=== PATIENT | male | born 1985 | race Caucasian/White ===

== ENCOUNTER → 2017-08-31 12:45 | Outpatient (CLI) | payer MEDICAID, SELFPAY ==
--- NOTE | 2017-08-31 12:47 | CT_ITS ---
STUDY: CT RIGHT ELBOW WITHOUT CONTRAST REASON FOR EXAM: Male, 32 years old. Chronic elbow pain. History of osteoarthritis. RADIATION DOSAGE (If Supplied By Facility): CTDIvol = ( 24.58 ) mGy, DLP = ( 591.34 ) mGycm TECHNIQUE: Transaxial CT imaging of the elbow was performed. Sagittal and coronal images were reconstructed. 3-D images were reconstructed. Individualized dose optimization techniques were used for this CT. COMPARISON: Comparison is made with prior MRI of the right elbow dated December 04, 2010. FINDINGS: Marked degree of degenerative arthrosis of the ulnar trochlear articulation with subcortical cyst. There is also evidence of degenerative spurring involving the femoral head and neck with marked degenerative changes of the radial ulnar joint. There are 2 well-corticated bony fragments adjacent to the radial head measuring 7.4 mm. Soft tissue swelling. CT/Extremity Upper without Contra IMPRESSION: Marked degree of the degenerative changes of the radial ulnar joint as well as the ulnar trochlear joint with marked degree of subchondral cysts. Electronically Signed: Ramón Manzo MD at 15:15 EDT Tel [phone], Service support ,
== END ==
PROVIDERS: Family Provider Physician Assistant; PCP Physician Assistant; Visit Provider Orthopaedic Surgery
DX: M19.221 Secondary osteoarthritis, right elbow (principal)
CPT/HCPCS: 73200

== ENCOUNTER → 2018-07-21 10:08 | Outpatient (CLI) | payer MEDICAID, SELFPAY ==
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
== END ==
PROVIDERS: Family Provider Physician Assistant; PCP Physician Assistant; Referring Provider Orthopaedic Surgery; Visit Provider Orthopaedic Surgery
DX: M25.512 Pain in left shoulder (principal); M23.332 Other meniscus derangements, other medial meniscus, left knee; M23.92 Unspecified internal derangement of left knee; M25.662 Stiffness of left knee, not elsewhere classified
CPT/HCPCS: 73721

== ENCOUNTER 2018-07-24 13:20 | Emergency (ER) | payer MEDICAID, SELFPAY ==
[2018-07-24 13:21] VITALS: BP 143/75; PULSE 77; RESP 16; TEMP 36.4; O2SAT 96; BMI 28.1
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
--- NOTE | 2018-07-24 13:54 | RAD_ITS ---
STUDY: X-RAY - RIGHT SHOULDER REASON FOR EXAM: Male, 33 years old. Pain TECHNIQUE: 2 view(s) of the shoulder. COMPARISON: None. FINDINGS: There is no evidence of fracture or dislocation. There are no significant degenerative changes. There are no radiodense foreign bodies. RAD/Shoulder min 2 Views IMPRESSION: No fracture or dislocation. Electronically Signed: Rojas Walters, at 14:47 EST Tel , Service support ,
[2018-07-24] MEDS: Naproxen 500 MG Tablet PO (14:17)
--- NOTE | 2018-07-24 14:55 | ED.DEP ---
ED Disposition - Plan for ED Patient: Prescriptions: Naproxen [Naprosyn] 500 mg PO BID PRN #20 tab Referrals: Marcela Jacob PA [Primary Care Provider] -
[2018-07-24 15:09] VITALS: BP 113/74; PULSE 78; RESP 15; O2SAT 98
== END 2018-07-24 15:10 | disposition home or self-care (01) ==
LOC: ED 14:52
PROVIDERS: Emergency Provider Emergency Medicine; Family Provider Physician Assistant; PCP Physician Assistant
DX: S49.91XA Unspecified injury of right shoulder and upper arm, initial encounter (principal); X58.XXXA Exposure to other specified factors, initial encounter; Y93.89 Activity, other specified; Y92.9 Unspecified place or not applicable; Y99.9 Unspecified external cause status; M19.021 Primary osteoarthritis, right elbow; G40.909 Epilepsy, unspecified, not intractable, without status epilepticus
CPT/HCPCS: 73030; 99283

== ENCOUNTER 2018-09-22 10:43 | Emergency (ER) | payer MEDICAID, SELFPAY ==
[2018-09-22 10:44] VITALS: BP 124/81; BP 130/81; PULSE 76; PULSE 83; RESP 13; RESP 14; TEMP 36.7; O2SAT 97; O2SAT 98; BMI 28.5
[2018-09-22 10:54] VITALS: O2SAT 97
--- NOTE | 2018-09-22 11:32 | CT_ITS ---
STUDY: CT BRAIN WITHOUT CONTRAST REASON FOR EXAM: Male, 33 years old. History of intracranial bleed/hemophilia. RADIATION DOSAGE (If Supplied By Facility): CTDIvol = ( 44.99 ) mGy, DLP = ( 812.98 ) mGycm TECHNIQUE: Transaxial CT imaging of the brain was performed without administration of intravenous contrast material. Individualized dose optimization techniques were used for this CT. COMPARISON: Comparison is made with prior study dated May 17, 2017. FINDINGS: Normal soft tissue structures. Once again, the patient is status post right frontal and right posterior parietal occipital craniotomy. Normal size ventricles and extra-axial spaces for the patient's age. Stable encephalomalacia in the right frontal lobe as well as in the right posterior parietal occipital lobes and left temporal parietal lobes. No acute hemorrhage or mass effect is seen at this time. Normal basal ganglia and thalami. Normal brainstem. Normal cerebellum. There is no intracranial hemorrhage. There are no findings of an acute ischemic infarction. There is a 1.7 cm x 1.6 cm polyp or retention cyst in the right maxillary sinus. CT/Brain/Head without Contrast IMPRESSION: Stable examination. Electronically Signed: Ramón Manzo, at 12:45 EDT , Service support ,
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
[2018-09-22 12:07] VITALS: BP 133/81; PULSE 83; RESP 17
[2018-09-22 12:18] LABS: Absolute Lymphocyte Count 1.02 X10^3/ul (0.83-4.51); Absolute Neutrophil Count 9.4 X10^3/uL (2.0-7.7); Basophil# 0.01 X10^3/uL; Basophil% 0.1 % (0-1); Eosinophil# 0.02 X10^3/uL; Eosinophils% 0.2 % (0-5); Hematocrit 48.4 % (40-54); Hemoglobin 16.7 g/dl (13.0-16.5); Lymphocyte # 1.02 X10^3/ul (4.0); Lymphocyte % 9.2 % (19-41); Mean Corp Hgb Conc 34.5 g/gl (32-36); Mean Corpuscular Hgb 27.9 pg (27.0-32.0); Mean Corpuscular Volume 80.9 fL (80-94); Mean Platelet Vol. 9.7 fl (6.2-12.0); Monocyte% 5.4 % (0-10); Neutrophil # 9.39 X10^3/uL (2.7-7.7); Neutrophil % 84.8 % (47-70); Platelet Count 191 K/mm3 (150-450); RBC Distribution Width CV 13.6 % (11.6-14.6); RBC Distribution Width SD 39.8 fl (35.1-43.9); Red Blood Count 5.98 M/mm3 (4.6-6.2); White Blood Count 11.1 K/mm3 (4.4-11.0)
[2018-09-22 12:19] LABS: POSITIVE COUNT NO; POSITIVE DIFFERENTIAL NO; POSITIVE MORPHOLOGY NO
[2018-09-22 12:35] LABS: Anion Gap 5 (5-15); BUN 24 mg/dL (7-18); BUN/Creat Ratio 18.8 RATIO (10-20); Calcium,Total 9.2 mg/dL (8.5-10.1); Chloride 98 mmol/L (98-107); Creatinine, Serum 1.28 mg/dL (0.70-1.30); EST Glomerular Filtration Rate 69 mL/min (>60); Est Glom Filt Rate - Afr Amer 84 mL/min (>60); Estimated Creatinine Clearance 110.82 ml/min; Glucose 97 mg/dL (74-106); Potassium 3.5 mmol/L (3.5-5.1); Sodium Level 134 mmol/L (136-145)
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
[2018-09-22 13:48] VITALS: BP 110/76; PULSE 85; RESP 20; O2SAT 99
== END 2018-09-22 13:49 | disposition home or self-care (01) ==
PROVIDERS: Emergency Provider Emergency Medicine; Family Provider Physician Assistant; PCP Physician Assistant
DX: R41.0 Disorientation, unspecified (principal); R56.9 Unspecified convulsions; D66 Hereditary factor VIII deficiency; V89.2XXA Person injured in unspecified motor-vehicle accident, traffic, initial encounter; Y93.9 Activity, unspecified; Y92.007 Garden or yard of unspecified non-institutional (private) residence as the place of occurrence of the external cause; Y99.8 Other external cause status
CPT/HCPCS: 70450; 80048; 85025; 99285; A4216

== ENCOUNTER → 2019-02-28 09:20 | Outpatient (CLI) | payer MEDICAID, SELFPAY ==
[2019-02-28 09:14] VITALS: BMI 28.5
--- NOTE | 2019-02-28 09:22 | RAD_ITS ---
STUDY: X-RAY - LEFT KNEE REASON FOR EXAM: Pain. TECHNIQUE: 4 view(s) of the knee. COMPARISON: None. FINDINGS: Normal visualized distal femur. Normal visualized proximal tibia and fibula. Normal proximal tibiofibular articulation. Normal medial femorotibial compartment. Normal lateral femorotibial compartment. Normal patellofemoral articulation. The soft tissue structures are unremarkable. RAD/Knee 4 or More Views IMPRESSION: Normal x-ray examination of the left knee. Electronically Signed: Kashif Rollins MD at 9:42 EDT Tel , Service support ,
--- NOTE | 2019-02-28 09:54 | RAD_ITS ---
STUDY: X-RAY - PELVIS AND LEFT HIP REASON FOR EXAM: Pain. TECHNIQUE: 2 views of the pelvis and hip. COMPARISON: None. FINDINGS: Normal visualized soft tissue structures. Normal bilateral iliac wings, sacroiliac joints and visualized sacrum. Normal bilateral superior and inferior pubic rami. Normal pubic symphysis. Normal bilateral ischial tuberosities. There is uncovering of the left femoral head consistent with developmental hip dysplasia. There are marginal osteophytes of the left femoral head with mild superior lateral joint space narrowing of the left hip. 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 Electronically Signed: Kashif Rollins MD at 10:19 EDT Tel , Service support ,
== END ==
PROVIDERS: Family Provider Physician Assistant; PCP Physician Assistant; Referring Provider Orthopaedic Surgery; Visit Provider Orthopaedic Surgery
DX: M25.562 Pain in left knee (principal); M79.605 Pain in left leg
CPT/HCPCS: 73502; 73564

== ENCOUNTER 2019-03-10 09:39 | Outpatient (RCR) | payer MEDICAID, SELFPAY ==
[2019-02-28 09:14] VITALS: BMI 28.5
== END 2019-03-10 19:00 | disposition home or self-care (01) ==
LOC: PT 09:39
PROVIDERS: Family Provider Physician Assistant; PCP Physician Assistant; Referring Provider Orthopaedic Surgery; Visit Provider Orthopaedic Surgery
DX: M25.562 Pain in left knee (principal); Q65.89 Other specified congenital deformities of hip

== ENCOUNTER → 2019-12-20 09:25 | Outpatient (CLI) | payer MEDICAID, SELFPAY ==
[2019-12-15 14:22] VITALS: BMI 28.5
--- NOTE | 2019-12-20 09:26 | RAD_ITS ---
STUDY: X-RAY - LUMBAR SPINE REASON FOR EXAM: Male, 34 years old. LEFT HIP PAIN, DIFFICULTY WALKING TECHNIQUE: 5 view(s) of the lumbar spine were obtained. COMPARISON: None FINDINGS: Normal lumbar lordosis. There is no substantial scoliosis. There is a normal alignment of the vertebrae. There is mild endplate spondylosis of L3. Normal disc space heights. The soft tissue structures are unremarkable. RAD/L/S Spine Min 4 Views IMPRESSION: Mild endplate spondylosis of L3. The study is otherwise unremarkable. Electronically Signed: Rex Murphy MD at 17:08 EDT , Service support ,
== END ==
PROVIDERS: PCP Physician Assistant; Referring Provider Orthopaedic Surgery; Visit Provider Orthopaedic Surgery
DX: M16.12 Unilateral primary osteoarthritis, left hip (principal); G57.02 Lesion of sciatic nerve, left lower limb; M25.562 Pain in left knee; G89.29 Other chronic pain
CPT/HCPCS: 72110

== ENCOUNTER → 2020-01-05 17:38 | Outpatient (CLI) | payer MEDICAID, SELFPAY ==
[2019-12-20 10:23] VITALS: BMI 28.5
--- NOTE | 2020-01-05 17:39 | MRI_ITS ---
STUDY: MRI LEFT HIP REASON FOR EXAM: Male, 34 years old. LT HIP PAIN, prior left hip surgery as a teen for infection, NKI, r.o AVN TECHNIQUE: Standardized fat and water weighted pulse sequences were obtained in all 3 orthogonal planes. COMPARISON: X-ray 02/28/2019. FINDINGS: Small osteochondral defects of the superior and superomedial femoral head, with mild reactive marrow edema of the acetabulum. Mild anterior spurring of the femoral head. There is mild reactive marrow edema in the anterior femoral head and neck. Cystic changes in the anterior acetabulum. Question of anterior labral tear is raised. Trace hip joint effusion. Soft tissue edema of the anterior capsule. Iliofemoral ligament is intact. Normal gluteus minimus, medius and iliopsoas tendons and distal insertions. Origins of the hamstring tendons are intact. There is no trochanteric, iliopsoas or iliopectineal bursitis. Normal visualized soft tissue structures of the pelvis. MRI/Lower Ext Joint Only (Routine) IMPRESSION: 1. Mild degenerative changes of the left hip. 2. Question anterior labral tear. 3. Trace joint effusion. 4. Reactive marrow edema of the anterior femoral head. Electronically Signed: Deedee Patrick MD at 19:57 EDT Tel , Service support ,
== END ==
PROVIDERS: PCP Physician Assistant; Referring Provider Orthopaedic Surgery; Visit Provider Orthopaedic Surgery
DX: M43.16 Spondylolisthesis, lumbar region (principal); Q65.89 Other specified congenital deformities of hip
CPT/HCPCS: 73721

== ENCOUNTER → 2020-07-10 14:33 | Outpatient (CLI) | payer MEDICAID, SELFPAY ==
[2020-01-10 07:55] VITALS: BMI 28.5
--- NOTE | 2020-07-10 14:37 | RAD_ITS ---
STUDY: X-RAY - RIGHT FOOT CLINICAL: Male, 35 years old. pt states bilateral foot and ankle pain for whole life, previous hx of arthroscopy to both ankles at 12 years old, pt was poor historian TECHNIQUE: 3 view(s) of the foot. COMPARISON: None. FINDINGS: Normal talus, calcaneus, and tarsal bones. Normal visualized subtalar, talonavicular, calcaneocuboid, tarsal and tarsometatarsal articulations. Normal metatarsi. Normal metatarsophalangeal joint of the great toe. Normal tibial and fibular sesamoid bones. Normal interphalangeal joint of the great toe. Normal phalanges of the great toe. Normal second through fifth metatarsophalangeal joints. Normal interphalangeal joints and phalanges of the lesser toes. The soft tissue structures are unremarkable. Significant ankle degenerative changes RAD/Foot min 3 Views IMPRESSION: Normal x-ray examination of the foot. Electronically Signed: Chip Naik DO at 4:41 EST Tel , Service support ,
--- NOTE | 2020-07-10 14:37 | RAD_ITS ---
STUDY: X-RAY - RIGHT ANKLE REASON FOR EXAM: Male, 35 years old. Pt states bilateral foot and ankle pain for whole life, previous hx of arthroscopy to both ankles at 12 years old, pt was poor historian TECHNIQUE: 4 view(s) of the ankle. COMPARISON: None. FINDINGS: Normal visualized distal tibia and fibula. Normal medial and lateral malleoli. Degenerative changes of the distal tibial talar joint. There is sclerosis and deformity with compression of the talus suggestive of possible avascular necrosis. The visualized subtalar, talonavicular, calcaneocuboid and tarsal articulations are normal. The soft tissue structures are unremarkable. 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 Electronically Signed: Ramón Manzo MD at 15:33 EST , Service support ,
--- NOTE | 2020-07-10 14:37 | RAD_ITS ---
STUDY: X-RAY - LEFT ANKLE REASON FOR EXAM: Male, 35 years old. Pt states bilateral foot and ankle pain for whole life, previous hx of arthroscopy to both ankles at 12 years old, pt was poor historian TECHNIQUE: 3 view(s) of the ankle. COMPARISON: None. FINDINGS: Normal visualized distal tibia and fibula. Old avulsion fracture of the medial malleolus. Degenerative changes of the distal tibial talar joint. There is flattening of the talus suggestive of possible avascular necrosis. The visualized subtalar, talonavicular, calcaneocuboid and tarsal articulations are normal. The soft tissue structures are unremarkable. RAD/Ankle min 3 Views IMPRESSION: Old avulsion fracture of the medial malleolus with findings suggestive of a deformity of the talus and possible avascular necrosis. Electronically Signed: Ramón Manzo MD at 15:32 EST , Service support ,
--- NOTE | 2020-07-10 14:40 | RAD_ITS ---
STUDY: X-RAY - LEFT FOOT CLINICAL: Male, 35 years old. pt states bilateral foot and ankle pain for whole life, previous hx of arthroscopy to both ankles at 12 years old, pt was poor historian TECHNIQUE: 3 view(s) of the foot. COMPARISON: None. FINDINGS: Normal talus, calcaneus, and tarsal bones. Normal visualized subtalar, talonavicular, calcaneocuboid, tarsal and tarsometatarsal articulations. Normal metatarsi. Normal metatarsophalangeal joint of the great toe. Normal tibial and fibular sesamoid bones. Normal interphalangeal joint of the great toe. Normal phalanges of the great toe. Normal second through fifth metatarsophalangeal joints. Normal interphalangeal joints and phalanges of the lesser toes. The soft tissue structures are unremarkable. RAD/Foot min 3 Views IMPRESSION: Normal x-ray examination of the foot. Electronically Signed: Chip Naik DO at 4:41 EST Tel , Service support ,
== END ==
PROVIDERS: PCP Physician Assistant; Referring Provider Anesthesiology Pain Medicine; Visit Provider Anesthesiology Pain Medicine
DX: M25.571 Pain in right ankle and joints of right foot (principal); M25.572 Pain in left ankle and joints of left foot
CPT/HCPCS: 73610; 73630

== ENCOUNTER → 2020-12-03 | Outpatient (CLI) | payer MEDICAID, SELFPAY ==
[2020-01-10 07:55] VITALS: BMI 28.5
[2020-12-03 16:56] LABS: Amphetamine Urine VISTA NEGATIVE (<1000 ng/mL); Barbiturate Urine VISTA NEGATIVE (< 200 ng/mL); Benzodiazepine Urine VISTA NEGATIVE (< 200 ng/mL); Cocaine Urine VISTA NEGATIVE (< 300 ng/mL); Ecstacy Urine VISTA NEGATIVE (< 500 ng/mL); Methadone Urine VISTA NEGATIVE (< 300 ng/mL); PCP Urine VISTA NEGATIVE (< 25 ng/mL); THC Urine VISTA NEGATIVE (< 50 ng/mL); Vista UDS pH Range 6
[2020-12-04 07:48] LABS: BUP Internal Control LINE = VALID (VALID)
[2020-12-04 07:49] LABS: Buprenorphine Drug Screen Positive (<10 ng/mL)
== END | disposition home or self-care (01) ==
LOC: LABSPEC 15:10
PROVIDERS: PCP Physician Assistant; Visit Provider Anesthesiology Pain Medicine
DX: F11.20 Opioid dependence, uncomplicated (principal)
CPT/HCPCS: 80307

== ENCOUNTER → 2020-12-31 15:38 | Outpatient (CLI) | payer MEDICAID, SELFPAY ==
[2020-01-10 07:55] VITALS: BMI 28.5
[2020-12-31 16:45] LABS: Amphetamine Urine VISTA NEGATIVE (<1000 ng/mL); Barbiturate Urine VISTA NEGATIVE (< 200 ng/mL); Benzodiazepine Urine VISTA NEGATIVE (< 200 ng/mL); Cocaine Urine VISTA NEGATIVE (< 300 ng/mL); Ecstacy Urine VISTA NEGATIVE (< 500 ng/mL); Methadone Urine VISTA NEGATIVE (< 300 ng/mL); PCP Urine VISTA NEGATIVE (< 25 ng/mL); THC Urine VISTA NEGATIVE (< 50 ng/mL); Vista UDS pH Range 5
== END ==
PROVIDERS: PCP Physician Assistant; Referring Provider Anesthesiology Pain Medicine; Visit Provider Anesthesiology Pain Medicine
DX: F11.20 Opioid dependence, uncomplicated (principal)
CPT/HCPCS: 80307

== ENCOUNTER 2022-06-27 02:23 | Emergency (ER) | payer MEDICAID, SELFPAY ==
[2022-06-27 02:24] VITALS: BP 149/95; PULSE 74; RESP 18; TEMP 36; O2SAT 99; BMI 27.4
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
[2022-06-27 02:53] LABS: Absolute Lymphocyte Count 3.94 X10^3/uL (0.83-4.51); Absolute Neutrophil Count 7.7 X10^3/uL (2.0-7.7); Basophil# 0.05 X10^3/uL; Basophil% 0.4 % (0-1); Eosinophil# 0.14 X10^3/uL; Eosinophils% 1.1 % (0-5); Hematocrit 35.6 % (40-54); Hemoglobin 11.1 g/dL (13.0-16.5); Lymphocyte # 3.94 X10^3/ul (0.83-4.51); Lymphocyte % 31.1 % (19-41); Mean Corp Hgb Conc 31.2 g/dL (32-36); Mean Corpuscular Hgb 28.1 pg (27.0-32.0); Mean Corpuscular Volume 90.1 fL (80-94); Mean Platelet Vol. 9.2 fl (6.2-12.0); Monocyte% 6.3 % (0-10); NRBC Flagged by Analyzer 0 % (0-5); Neutrophil # 7.69 X10^3/uL (2.7-7.7); Neutrophil % 60.7 % (47-70); Platelet Count 401 K/mm3 (150-450); RBC Distribution Width SD 45.8 fl (35.1-43.9); Red Blood Count 3.95 M/mm3 (4.6-6.2); White Blood Count 12.7 K/mm3 (4.4-11.0)
[2022-06-27 03:06] LABS: Bedside Glucose 136 mg/dL (74-106)
[2022-06-27 03:07] LABS: Anion Gap 10 (5-15); BUN 32 mg/dL (7-18); BUN/Creat Ratio 26.9 RATIO (10-20); Calcium,Total 8.8 mg/dL (8.5-10.1); Chloride 107 mmol/L (98-107); Creatinine, Serum 1.19 mg/dL (0.70-1.30); EST Glomerular Filtration Rate 74 mL/min (>60); Est Glom Filt Rate - Afr Amer 89 mL/min (>60); Estimated Creatinine Clearance 114.83 ml/min; Glucose 176 mg/dL (74-106); Potassium 4.7 mmol/L (3.5-5.1); Sodium Level 140 mmol/L (136-145)
[2022-06-27] MEDS: levETIRAcetam IV 1,000 MG/100 ML BAG 400 MG IV ×2 (03:27→07:47)
[2022-06-27 03:35] VITALS: BP 65/52; PULSE 81; RESP 16; O2SAT 96
[2022-06-27] MEDS: 0.9% Normal Saline 1,000 ML 999 ML IV ×3 (03:39→08:50)
[2022-06-27] MEDS: Lidocaine 2% /Epi 1:100 (20ml) 20 ML VIAL INFILT (04:31)
--- NOTE | 2022-06-27 05:53 | EDS_ITS ---
HPI History of Present Illness Chief Complaint: Laceration Narrative Narrative: Patient is a 37-year-old male with past medical history of hemophilia and seizure disorder. He had been on Keppra twice a day and then stopped his medication. Secondary to this he had a breakthrough seizures where he fell and struck his head sustaining a laceration. Reportedly the wound was closed at an outside hospital where he went to after his initial injury from the repetitive seizure roughly 1 week ago. Patient states that this evening he was sleeping and then awoke feeling like he had to use the bathroom and noticed that his head was wet. He states when he touched the area there was a large amount of blood and secondary to his EMS was called and he was brought in for evaluation. The patient states that there has been no repeat trauma since his initial injury and states he has been taking his medications as directed [facility] Medical History Hemophilia hx of stroke Seizure Home Medications antihemophil FVIII,full length 1,000 (+/-) unit IV solution 12,000 unit IV QODAY 07/07/16 [History Last Taken Unknown] levetiracetam 750 mg tablet 750 mg PO BID 09/22/18 [History Last Taken Unknown] citalopram 20 mg tablet PO #30 tabs 02/28/19 [History Last Taken Unknown] Allergy/AdvReac Type Severity Reaction Status Date / Time aspirin Allergy Other Verified 06/27/22 02:24 Iodinated Contrast Media Allergy Other Verified 06/27/22 02:24 [DYEE] NSAIDS (Non-Steroidal Allergy Other Verified 06/27/22 02:24 Anti-Inflamma Surgical History (Updated 08/25/21 @ 10:37 by Kamla Marquez) History of ankle surgery History of arthroscopy of left knee Hx of brain surgery Hx of heart surgery Social History (Updated 08/25/21 @ 10:38 by Kamla Marquez) Smoking Status: Never smoker alcohol intake: never ROS ROS ED Constitutional Constitutional ED: Denies chills or fever(s) Eyes Eyes: Denies change in vision ENT ENT ED: Denies sore throat Cardiovascular Cardiovascular: Denies chest pain Respiratory/Chest Respiratory/Chest: Denies cough or dyspnea Gastrointestinal Gastrointestinal: Denies abdominal pain, diarrhea, nausea or vomiting Genitourinary Genitourinary ED: Denies dysuria Musculoskeletal Musculoskeletal: Denies myalgias Integumentary Reports other Details: Positive scalp laceration Neurologic Neurologic: Denies headache(s) Hematologic/Lymphatic Hematologic/Lymphatic: Reports easy bleeding and easy bruising EXAM Physical Exam Const Vital Signs: 06/27/22 02:24 06/27/22 03:35 06/27/22 06:17 Temperature 96.8 F L Temperature Source Temporal Pulse Rate 74 81 75 Respiratory Rate 18 16 17 Blood Pressure 149/95 H 65/52 L 110/72 Blood Pressure Mean 113 56 84 Pulse Ox 99 96 99 Oxygen Delivery Method Room Air Room Air Room Air 06/27/22 07:00 Temperature Temperature Source Pulse Rate 90 Respiratory Rate 17 Blood Pressure 103/55 L Blood Pressure Mean 71 Pulse Ox 99 Oxygen Delivery Method Room Air Positive well nourished and well developed General Appearance ED: well developed HEENT Reports moist mucous membranes HEENT Narrative: Patient has a circular 1 x 1.5 cm laceration across the left upper occipital portion of his scalp. Patient has active bleeding from this but it is dark red nonpulsatile indicating it is a brisk venous bleed. Otherwise there are no signs of depressed or basilar skull fracture. Eyes PERRL and EOMs intact bilaterally General Eye ED: Negative for pale conjunctiva Neck supple Resp normal respiratory effort and clear to auscultation bilaterally Cardio regular rate and regular rhythm GI normal to inspection, nondistended, normoactive bowel sounds, non-tender, non- distended and no masses Auscultation: normoactive bowel sounds Palpation: soft Extremity normal to inspection Neuro oriented x3 and CN's II-XII intact bilaterally Sensorium / Orientation: alert Psych mental status grossly normal Skin Skin Narrative: Laceration to the scalp as documented above MDM MDM MDM Narrative Medical decision making narrative: Patient presented to the ER awake and alert with no report or signs of repeat trauma from his initial reported injury roughly 1 week ago. While patient was being triaged and his wound evaluated he did have 30 second to 1-minute seizure with postictal phase. Secondary to this basic blood work was obtained. As he had no report or signs of new trauma I did not feel there is need for repeat andres ging studies. Blood work showed leukocytosis at 12.7 which is most likely stress response and otherwise no clinically significant finding. The patient went on to have 2 other seizures following the first for a total of 3 in the ER all lasting approximately 30 seconds and patient did have return to baseline mental status in between each seizure and therefore he is not in status epilepticus. Secondary to these recurrent seizures he was given 1 g of Keppra. Patient was also hydrated with a total of 3 L of fluid. The wound was closed as documented below. Following this as blood work revealed no clinically significant findings and his wounds been closed and not feel there is need for admission so we attempted to ambulate the patient. Upon doing so patient had another 30 second seizure with return to baseline mental status. Therefore at this time patient will be observed further and we will discuss the case with neurology to see if there is any need for further intervention or possible transfer at this time The case was discussed with the patient epilepsy team at [facility]. They feel patient should receive a second gram of IV Keppra and then have his home dose increased to 1500 mg twice a day. They recommend patient be watched for roughly another 3 hours and if there is no further seizure activity after this treatment then he is otherwise safe for discharge from their standpoint and can follow-up on an outpatient basis. This plan of care was discussed with the patient and mother and both are agreeable to it Patient had his scalp wound cleaned with chlorhexidine. It was anesthetized using 6 mL of 2% lidocaine with epinephrine local fashion. A total of fifteen 5-0 Vicryl sutures were then placed in simple interrupted fashion around the circular scalp wound. This brought the wound together good approximation and control bleeding. Patient tolerated procedure well without complication Lab Data Attestation: I reviewed the patient's lab results. Labs: Laboratory Results - last 24 hr 06/27/22 06/27/22 06/27/22 02:40 02:40 02:46 WBC 12.7 H RBC 3.95 L Hgb 11.1 L Hct 35.6 L MCV 90.1 MCH 28.1 MCHC 31.2 L RDW Std Deviation 45.8 H RDW Coeff of Abraham 14.0 Plt Count 401 MPV 9.2 Immature Gran % (Auto) 0.400 Neut % (Auto) 60.7 Lymph % (Auto) 31.1 [place] % (Auto) 6.3 Eos % (Auto) 1.1 Baso % (Auto) 0.4 Absolute Neuts (auto) 7.7 Absolute Lymphs (auto) 3.94 Nucleated RBC % 0 Sodium 140 Potassium 4.7 Chloride 107 Carbon Dioxide 23.0 Anion Gap 10 BUN 32 H Creatinine 1.19 Estim Creat Clear Calc 114.83 Est GFR (MDRD) Af Amer 89 Est GFR (MDRD) Non-Af 74 BUN/Creatinine Ratio 26.9 H Glucose 176 H Calcium 8.8 Magnesium 2.0 POC Glucose 136 H Discharge Plan Triage Chief Complaint: Laceration ED Provider: Anish Villeda Dx/Rx/DC Orders Clinical Impression: Laceration of scalp, Recurrent seizures, Hemophilia Instructions: ED Seizure, Recurrent (Adult) Prescriptions: No Action citalopram 20 mg tablet PO Qty: 30 antihemophil FVIII,full length 1,000 UNIT recon soln 12,000 unit IV QODAY Rx Instructions: 2x/week levetiracetam 750 MG tablet 750 mg PO BID Primary Care Provider: Marcela Jacob Referrals: Marcela Jacob, PA [Primary Care Provider] - Activity Restrictions/Additional Instructions: Please increase your Keppra to 1500 mg(2 pills) by mouth twice a day for improved seizure control. The sutures placed in your scalp today are dissolvable and therefore do not need to be removed. They should dissolve in approximately 1 to 2 weeks. If you have any further concerns please return to the ER for repeat evaluation Disposition Disposition: Home, Self Care
[2022-06-27 06:17] VITALS: BP 110/72; PULSE 75; RESP 17; O2SAT 99
--- NOTE | 2022-06-27 06:47 | NURSING ---
CALLED [facility] ABOUT PATIENT. TALKED TO RONNIE
[2022-06-27 07:00] VITALS: BP 103/55; PULSE 90; RESP 17; O2SAT 99
--- NOTE | 2022-06-27 07:11 | NURSING ---
[facility] DR FOR DR ARELLANO
[2022-06-27 09:00] VITALS: PULSE 87; RESP 17; O2SAT 100
[2022-06-30 18:24] LABS: KEPPRA (LEVETIRACETAM) 13.2 ug/mL (10.0-40.0)
== END 2022-06-27 11:58 | disposition home or self-care (01) ==
PROVIDERS: Emergency Provider Emergency Medicine; PCP Physician Assistant; Visit Provider Emergency Medicine
DX: S01.01XA Laceration without foreign body of scalp, initial encounter (principal); D66 Hereditary factor VIII deficiency; G40.909 Epilepsy, unspecified, not intractable, without status epilepticus; W19.XXXA Unspecified fall, initial encounter; Z86.73 Personal history of transient ischemic attack (TIA), and cerebral infarction without residual deficits
CPT/HCPCS: 12001; 80048; 80177; 82962; 83735; 85025; 96361; 96365; 96366; 99284; J7030; A4216

== ENCOUNTER 2024-08-22 13:06 | Emergency (ER) | payer MEDICAID, SELFPAY ==
[2024-08-22 13:07] VITALS: BP 134/83; PULSE 66; RESP 19; TEMP 35.8; O2SAT 98; BMI 26.7
--- NOTE | 2024-08-22 13:31 | CT_ITS ---
PROCEDURE: BRAIN/HEAD WITHOUT CONTRAST 08/22/2024 REASON FOR EXAM: TRAUMA, HEMOPHILIAC Abrasions to the right side of the face. TECHNIQUE: Head CT without intravenous contrast. Coronal and Sagittal reconstruction series were provided. One or more dose reduction techniques were used (e.g., Automated exposure control, adjustment of the mA and/or kV according to patient size, use of iterative reconstruction technique. RADIATION DOSE SUMMARY: CTDlvol: 44.99 mGy DLP: 829.85 mGycm COMPARISON: Comparison is made with prior study dated September 22, 2018. FINDINGS: Brain: Stable focal area of encephalomalacia is in the right frontal lobe as well as in the left posterior temporal parietal lobe and right occipital lobe. CSF Spaces: Mild generalized cerebral atrophy Sinuses/Mastoids: Soft tissue swelling overlying the right orbital region. Bones: Status post right frontal and right posterior parietal occipital craniotomies. CT/Brain/Head without Contrast IMPRESSION: No evidence of acute intracranial abnormality. Stable examination. Soft tissue swelling overlying the right orbital region. Reading Location: [id number]
[2024-08-22] MEDS: Lidocaine 1% /Epi 1:100 (20ml) 20 ML Vial INFILT (13:49)
[2024-08-22 13:50] LABS: Absolute Lymphocyte Count 0.96 X10^3/uL (0.83-4.51); Absolute Neutrophil Count 12.9 X10^3/uL (2.0-7.7); Basophil# 0.02 X10^3/uL; Basophil% 0.1 % (0-1); Eosinophil# 0.02 X10^3/uL; Eosinophils% 0.1 % (0-5); Hematocrit 53.2 % (40-54); Lymphocyte # 0.96 X10^3/ul (0.83-4.51); Lymphocyte % 6.6 % (19-41); Mean Corpuscular Hgb 28.8 pg (27.0-32.0); Mean Corpuscular Volume 84.7 fL (80-94); Monocyte# 0.51 X10^3/uL; Monocyte% 3.5 % (0-10); NRBC Flagged by Analyzer 0 % (0-5); Neutrophil % 89.4 % (47-70); Platelet Count 195 K/mm3 (150-450); RBC Distribution Width CV 13.2 % (11.6-14.6); RBC Distribution Width SD 40.5 fl (35.1-43.9); Red Blood Count 6.28 M/mm3 (4.6-6.2); White Blood Count 14.5 K/mm3 (4.4-11.0)
[2024-08-22] MEDS: Lidocaine/Epi/Tetracaine 50 ML 1 APPLIC TOPICAL (13:50)
[2024-08-22] MEDS: Ondansetron 4 MG/2 ML Vial IV (13:50)
[2024-08-22 14:06] LABS: Hemoglobin 18.1 g/dL (13.0-16.5)
[2024-08-22 14:07] VITALS: BP 145/99; RESP 16
[2024-08-22 14:18] LABS: Anion Gap 10 (5-15); BUN 18 mg/dL (4-19); BUN/Creat Ratio 17.8 RATIO (10-20); Calcium,Total 9.2 mg/dL (7.6-11.0); Carbon Dioxide 26.8 mmol/L (21.0-32.0); Chloride 103 mmol/L (98-108); Creatinine, Serum 1.03 mg/dL (0.70-1.20); EST Glomerular Filtration Rate 96 (>60); Estimated Creatinine Clearance 130.14 ml/min (50-250); Glucose 113 mg/dL (70-99); Potassium 4.7 mmol/L (3.3-5.1); Sodium Level 140 mmol/L (133-145)
--- NOTE | 2024-08-22 14:22 | ED.RN ---
Patient self administered home factor VIII medication via IV per Dr. Aquino's approval.
--- NOTE | 2024-08-22 14:36 | ED.VIS.FALL ---
HPI HPI - Fall History of Present Illness Chief Complaint: Fall Informant: patient and family Narrative Narrative: 39-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 He lives with his sister, who was at work today when patient had an event that he does not remember. Sister came home to find him with injuries to his face. He does not have a headache. He does not have any trouble with his vision. He has soreness in his lips and the face near his right eye. He is bleeding from both of these areas. He denies any other pain or injury. He takes Keppra for seizures, unknown what dose right now but he takes Factor VIII 6000 units twice weekly and when he hits his head, they have it at home and have not used it yet today. No recent illness. Patient remembers going to the bathroom and then was going to go lay down and does not remember when and where what happened. He took his Keppra this morning before all of this, has not missed any doses that he recalls recently, denies any recent medication changes or additions/deletions, has not seen his neurologist for a year or so. Does not have seizures very often maybe once a year or so. [facility] Medical History Seizure Hemophilia hx of stroke Home Medications ?Medication ?Instructions ?Recorded ?Last Taken ?Type antihemophil FVIII,full length 12,000 unit IV QODAY 07/07/16 Unknown History 1,000 (+/-) unit IV solution citalopram 20 mg tablet PO #30 tabs 02/28/19 Unknown History levetiracetam 1,000 mg tablet 1,000 mg PO BID #60 tabs 08/22/24 Unknown Rx (Keppra) Allergy/AdvReac Type Severity Reaction Status Date / Time aspirin Allergy Other Verified 08/22/24 13:11 Iodinated Contrast Media Allergy Other Verified 08/22/24 13:11 (DYEE) NSAIDS (Non-Steroidal Allergy Other Verified 08/22/24 13:11 Anti-Inflamma Surgical History Hx of brain surgery History of ankle surgery History of arthroscopy of left knee Hx of heart surgery Social History Smoking Status: Never smoker alcohol intake: never ROS ROS ED Constitutional Constitutional ED: Denies chills or fever(s) Eyes Eyes: Denies change in vision or diplopia ENT ENT ED: Denies rhinorrhea or sore throat Cardiovascular Cardiovascular: Denies chest pain or palpitations Respiratory/Chest Respiratory/Chest: Denies cough or dyspnea Gastrointestinal Gastrointestinal: Denies abdominal pain, diarrhea, nausea or vomiting Genitourinary Genitourinary ED: Denies dysuria or hematuria Musculoskeletal Musculoskeletal: Denies back pain or neck pain Integumentary Reports laceration; Denies abscess or rash Neurologic Neurologic: Reports other Details: Amnestic to earlier events no other memory issues or confusion ; Denies headache(s), paresthesias or weakness Psychiatric Psychiatric: Denies anxiety or suicidal thoughts EXAM Physical Exam Const Vital Signs: 08/22/24 13:07 08/22/24 13:20 08/22/24 14:07 Temperature 96.4 F L Temperature Source Temporal Pulse Rate 66 Respiratory Rate 19 H 16 Respiratory Effort Normal Respiratory Depth Normal Respiratory Pattern Normal Blood Pressure 134/83 H 145/99 H Blood Pressure Mean 100 114 Pulse Ox 98 Oxygen Delivery Method Room Air Room Air 08/22/24 15:00 08/22/24 16:00 Temperature Temperature Source Pulse Rate Respiratory Rate Respiratory Effort Respiratory Depth Respiratory Pattern Blood Pressure 125/72 H 136/73 H Blood Pressure Mean 89 94 Pulse Ox Oxygen Delivery Method Positive well nourished and well developed General Appearance ED: well developed and NAD HEENT Reports moist mucous membranes HEENT Narrative: Right lateral periorbital ecchymosis, but not around the eye. No raccoon eyes. There is an associated laceration here, 1.5 cm, it is on the lateral aspect of the right upper eyelid but does not involve the margin and is not through and through, I everted the eyelid to check. There is no sign of globe trauma. There is no bony facial tenderness. There is also contusion to the right upper lip and contusion to the right lower lip with a laceration on the vermilion not including the border that is irregular with a flap and 2 cm, full-thickness not through and through no dentition injury. There is a second 1 cm L-shaped laceration only on the vermilion just lateral to this, and a third laceration full-thickness linear 1.5 cm that is along the vermilion border just caudal to both of these other 2. Can open jaw, no malocclusion. No hemotympanum. No Guillaume sign. normocephalic Eyes PERRL and EOMs intact bilaterally Neck full ROM and supple Resp normal respiratory effort and clear to auscultation bilaterally Cardio regular rate, regular rhythm and no murmurs GI non-tender and non-distended Auscultation: normoactive bowel sounds Palpation: soft Back/Spine no CVA tenderness General Back: other FROM Extremity normal to inspection General Extremety ED: Negative for edema, pulses abnormal or tenderness General Extremity: Negative for edema or pulses abnormal Neuro oriented x3, CN's II-XII intact bilaterally and no sensory deficits noted Sensorium / Orientation: awake and alert Motor Exam: strength 5/5 throughout Psych mental status grossly normal and thought process normal Skin Skin Narrative: Lacerations to the face see above MDM MDM MDM Narrative Medical decision making narrative: Alert a stat CT on the patient as well as some basic labs and seizure precautions with an IV, he did not have any other seizure activity, I waited to give him anything for seizures until we had confirmation of his levetiracetam dosing which in the EMR 750 twice daily. This later was confirmed. This hospital does not have factor VIII, but family has it at home and they live 5 minutes away. Therefore while he was being imaged, family went home and got his factor and he gave himself 6000 units as soon as they brought it back. I reviewed the CT images as well as the report which I agree with, it is negative for intracranial injury/hemorrhage. Lacerations were repaired see the procedure note. I gave him an extra oral 500 mg levetiracetam, increased his dose to 1000 mg twice daily until he can see his neurologist. It is unclear if he had a seizure or not, but I am assuming he did until proven otherwise given his amnesia of the event. Lab Data Attestation: I reviewed the patient's lab results. Labs: Laboratory Results - last 24 hr 08/22/24 13:44 WBC 14.5 H RBC 6.28 H Hgb 18.1 H* Hct 53.2 MCV 84.7 MCH 28.8 MCHC 34.0 RDW Std Deviation 40.5 RDW Coeff of Abraham 13.2 Plt Count 195 MPV 10.0 Immature Gran % (Auto) 0.300 Neut % (Auto) 89.4 H Lymph % (Auto) 6.6 L [place] % (Auto) 3.5 Eos % (Auto) 0.1 Baso % (Auto) 0.1 Absolute Neuts (auto) 12.9 H Absolute Lymphs (auto) 0.96 Nucleated RBC % 0 Sodium 140 Potassium 4.7 Chloride 103 Carbon Dioxide 26.8 Anion Gap 10 BUN 18 Creatinine 1.03 Estim Creat Clear Calc 130.14 Est GFR (MDRD) Non-Af 96 BUN/Creatinine Ratio 17.8 Glucose 113 H Calcium 9.2 Radiography Diagnostic Testing: Clinical Impression(s) from Imaging Studies Brain CT 08/22/24 13:31 IMPRESSION: No evidence of acute intracranial abnormality. Stable examination. Soft tissue swelling overlying the right orbital region. Reading Location: [facility] Procedures Lacerations R upper eyelid: Length: 1.5 cm Depth: Sub Q Shape: Linear Prep: Sterile Conditions and Chlorhexadine Laceration repair: Lidocaine with epi (0.5cc, 1%), Local and Skin sutures Number of Sutures/[place]: 3 Suture Information: Ethilon, Simple and 6-0 R lower lip, medial: Length: 2 cm Depth: Sub Q Shape: Flap (and irregular) Prep: Sterile Conditions Laceration repair: Lidocaine with epi (0.5cc, 1%), Local and Skin sutures Number of Sutures/[place]: 5 Suture Information: Vicryl (#2 5-0), Ethilon (#3 total, #2 5-0, #1 6-0) and Simple lower lip osei border horizontal: Length: 1.5 cm Depth: Sub Q Shape: Linear Prep: Sterile Conditions and Chlorhexadine Laceration repair: Lidocaine with epi (0.5cc, 1%), Local and Skin sutures Number of Sutures/[place]: 3 Suture Information: Ethilon, Simple and 6-0 Discharge Plan Triage Chief Complaint: Fall ED Provider: Toni Aquino Dx/Rx/DC Orders Clinical Impression: Closed head injury without concussion, Face lacerations, Transient alteration of awareness, Hx of seizure disorder, Hemophilia A Instructions: ED FACIAL LACERATION Suture Tape Prescriptions: New levetiracetam [Keppra] 1,000 mg tablet 1,000 mg PO BID Qty: 60 0RF Discontinued levetiracetam 750 MG tablet 750 mg PO BID No Action citalopram 20 mg tablet PO Qty: 30 antihemophil FVIII,full length 1,000 UNIT recon soln 12,000 unit IV QODAY Rx Instructions: 2x/week Primary Care Provider: Marcela Jacob Referrals: neurologist, your [Other] - As soon as possible Marcela Jacob, PA [Primary Care Provider] - 5 Days for suture removal (or ER or urgent care) Activity Restrictions/Additional Instructions: You have 13 sutures total. 2 of them are absorbable, if they fall out before the others are removed no problem, if not they may all be cut out. No driving until you are cleared by your neurologist. Print Language: Panamanian Disposition Disposition: Home, Self Care
[2024-08-22 15:00] VITALS: BP 125/72
[2024-08-22 16:00] VITALS: BP 136/73
[2024-08-22] MEDS: levETIRAcetam 500 MG Tablet PO (16:57)
[2024-08-22 16:59] VITALS: PULSE 73; RESP 16; O2SAT 98
[2024-08-22 17:12] VITALS: BP 138/77; PULSE 74; RESP 22; TEMP 36.6; O2SAT 96
== END 2024-08-22 17:15 | disposition home or self-care (01) ==
PROVIDERS: Emergency Provider Emergency Medicine; PCP Physician Assistant; Visit Provider Emergency Medicine
DX: S01.511A Laceration without foreign body of lip, initial encounter (principal); D66 Hereditary factor VIII deficiency; G40.909 Epilepsy, unspecified, not intractable, without status epilepticus; W19.XXXA Unspecified fall, initial encounter; Z86.73 Personal history of transient ischemic attack (TIA), and cerebral infarction without residual deficits; S01.111A Laceration without foreign body of right eyelid and periocular area, initial encounter; S09.90XA Unspecified injury of head, initial encounter; R40.4 Transient alteration of awareness
CPT/HCPCS: 12013; 70450; 80048; 85025; 96374; 99284; A4216; J2405

== ENCOUNTER 2025-03-19 23:57 | Emergency (ER) | payer MEDICAID, SELFPAY ==
[2025-03-20] VITALS: BP 133/87; PULSE 97; RESP 16; TEMP 36.4; O2SAT 93; BMI 26.8
[2025-03-20 00:03] VITALS: BP 133/87; PULSE 97; RESP 16; TEMP 36.4; O2SAT 94
--- OUTSIDE RECORDS SUMMARY | 2025-03-20 00:32 | XMS RPT_ITS | CCD ---
Author Organization [facility] Care Team Providers Care Hand Former Helper Name Role Phone Paulie Lyons Unavailable Marcela Jacob PA-C Primary Care Provider Gal Steven MD Unavailable Rich Dejesus MD Unavailable Randall Funes MD Unavailable Kezia PT, Anais Unavailable BRYANNA SCOTT Referring Unavailable Marcela JACOB Primary Care Unavailable Paulie Lyons Unavailable [phone] Marcela Jacob PA-C Primary Care Provider Gal Steven MD Unavailable Rich Dejesus MD Unavailable Randall Funes MD Unavailable Kezia PT, Anais Unavailable Paulie Lyons Unavailable Marcela Jacob PA-C Primary Care Provider Gal Steven MD Unavailable Anjelica LEIVA, Rich Carr Unavailable [phone] Randall Funes MD Unavailable Kezia PT, Anais Unavailable Paulie Lyons Unavailable [phone] Steven MD, Gal H Unavailable [phone] Kezia PT, Anais Unavailable Marcela Jacob PA-C Primary Care Provider Cecil LI, Aris Nagel Primary Care Provider Unavailable Haagen [facility] DIRECTOR, Vonnie Unavailable Suppan [facility] DIRECTOR, Jaelyn A Unavailable [phone] Haagen [facility] DIRECTOR, Vonnie Primary Care Provider Suppan [facility] DIRECTOR, Jaelyn A Unavailable Marcela Reyes Primary Care Provider Dr. Toni Aquino MD Emergency Provider Toni Aquino Attending Unavailable Marcela Reyes Primary Care Unavailable Eloy LEIVA, Paulie Waldrop Unavailable AUSTEN BLEVINS Referring Unavailable AUSTEN BLEVINS Attending Unavailable HAAGEN, VONNIE Primary Care Unavailable FELICITYYESIAN Referring Unavailable HAAGEN, VONNIE Primary Care Unavailable HAAGEN, VONNIE Primary Care Unavailable SELF Referring Unavailable STEVEN, GAL Attending Unavailable HAAGEN, VONNIE Primary Care Unavailable STEVEN, GAL Referring Unavailable HAAGEN, VONNIE Primary Care Unavailable STEVEN, GAL Referring Unavailable HAAGEN, VONNIE Primary Care Unavailable STEVEN, GAL Referring Unavailable HAAGEN, VONNIE Primary Care Unavailable STEVEN, GAL Referring Unavailable HAAGEN, VONNIE Primary Care Unavailable STEVEN, GAL Referring Unavailable HAAGEN, VONNIE Primary Care Unavailable SAJAN, VICTORINO Referring Unavailable SAJAN, VICTORINO Attending Unavailable HAAGEN, VONNIE Primary Care Unavailable HAAGEN, VONNIE Primary Care Unavailable STEVEN, GAL Referring Unavailable HAAGEN, VONNIE Primary Care Unavailable STEVEN, GAL Referring Unavailable HAAGEN, VONNIE Primary Care Unavailable JIMMY TURNER Attending Unavailable HAAGEN, VONNIE Primary Care Unavailable HAAGEN, VONNIE Referring Unavailable HAAGEN, VONNIE Attending Unavailable HAAGEN, VONNIE Primary Care Unavailable HAAGEN, VONNIE Referring Unavailable HAAGEN, VONNIE Primary Care Unavailable HAAGEN, VONNIE Referring Unavailable HAAGEN, VONNIE Primary Care Unavailable Allergies Allergy Classification Reported Allergen(s) Allergy Type Date of Onset Reaction(s) Facility (20 sources) Contrast media; Translations: [CONTRAST DYE] Propensity to adverse reactions to drug 01-01-20 15 Other: See Comments [facility] (16 sources) Non-steroidal anti-inflammatory agent; Translations: [NSAIDS (NON-STEROIDAL ANTI-INFLAMMATORY DRUG)] Drug Allergy 01-01-20 15 Other: See Comments [facility] (5 sources) Salicylic Acid; Translations: [SALICYLATES] Drug Allergy 07-09-19 06 Intolerance [facility] Work Phone: (20 sources) Non-steroidal anti-inflammatory agent Drug Allergy 01-01-20 15 Other: See Comments [facility] (20 sources) Salicylate product Propensity to adverse reactions 07-09-19 06 Intolerance [facility] Work Phone: (2 sources) Aspirin Drug Allergy 06-27-19 23 Other [facility] (2 sources) Nonsteroidal Anti-inflammatory Compounds Allergy to substance 06-27-19 Other [facility] (2 sources) Triiodobenzoic Acids Allergy to substance 06-27-19 Other [facility] (1 source) Aspirin Drug Allergy 08-23-19 25 [facility] Repository (1 source) NSAIDs Drug allergy (disorder) 08-23-19 25 [facility] Repository (1 source) Iodinated Contrast Media Drug allergy (disorder) 08-23-19 25 [facility] Repository Medications Current Medications Medication Drug Class(es) Dates Sig (Normalized) Sig (Original) amoxicillin 875 mg / clavulanate 125 mg oral tablet (1 source) Penicillin-class Antibacterial Start: 06-23-2022 End: 06-28-2022 take 1 tablet by mouth twice daily amoxicillin-clavul anic acid (AUGMENTIN) 875-125 mg per tablet Take 1 tablet by mouth twice daily for 5 days. 10 tablet 0 06/23/2022 06/28/2022 Active Comment on above: Take 1 tablet by charlie twice daily for 5 days. empagliflozin 10 mg oral tablet (1 source) Sodium-Glucose Cotransporter 2 Inhibitor Start: 2025 take 1 tablet by mouth once daily at breakfast empagliflozin (JARDIANCE) 10 mg tablet Take 1 tablet by mouth daily with breakfast. 30 tablet 11 2025 Active antihemophilic factor (recombinant) pegylated-exei 1 unt injection (17 sources) Human Antihemophilic Factor Start: 11-16-2024 FVIII rec,B-dom trunc peg-exei (ESPEROCT) 2,000 (+/-) unit solr Indications: Hemophilia A (HCC) Inject 6,000 Units intravenously every 4 Days. 24 each 5 11/16/2024 Active Start: 07-17-2024 End: 11-16-2024 FVIII rec,B-dom trunc peg-ex ei (ESPEROCT) 2,000 (+/-) unit solr Indications: Hemophilia A (HCC) Inject 5,000 Units intravenously every 4 Days. 20 each 11/07/2024 11/16/2024 Discontinued Start: 07-07-2016 take 1000 [IU] intra venously every other day Antihemophil Fviii,Full Length 1,000 UNIT recon soln Active 65041 U IV EVERY OTHER DAY July 07, 2016 1:00am 2x/week Start: 07-07-2016 Antihemophilic Factor, Recomb, (KOGENATE) 250 (+/-) unit solr Inject intravenously. 0 07/07/2016 Active Comment on above: Inject intravenously . 50 ml fentaNYL 0.05 mg/ml injection (2 sources) Opioid Agonist Start: 023 End: 023 inject 25-250 ug intravenously every hour fentaNYL (SUBLIMAZE) 20 mcg/mL Inject 25-250 mcg/hr intravenously continuous for 3 days. 0 06/11/2022 06/14/2022 Suspended Start: 06-11-2022 End: 06-14-2022 take 50 ug intravenously every two hours as needed fentaNYL (SUBLIMAZE) 50 mcg/mL soln Inject 1 mL intravenously every 2 hours as needed for up to 3 days. 0 06/11/2022 06/14/2022 Suspended Comment on above: Inject 25-250 mcg/hr intravenously continuous for 3 days. Inject 1 mL intraven ously every 2 hours as needed for up to 3 days. FLUoxetine 20 mg oral capsule (20 sources) Serotonin Reuptake Inhibitor Start: 4 End: 4 take 1 capsule by mouth once daily FLUoxetine (PROZAC) 40 mg capsule Take 1 capsule by mouth once daily. 90 capsule 3 05/01/2024 Active Start: 05-27-2023 End: 12-09-2024 take 1 capsule by mouth once daily FLUoxetine (PROZAC) 20 mg capsule Indications: Mild episode of recurrent major depressive disorder Take 1 capsule by mouth once daily. Take with 40 mg dose for total daily dose of 60 mg. 90 capsule 3 05/01/2024 Active Start: 09-18-2022 End: 02-10-2023 take 1 capsule by mouth once daily FLUoxetine (PROZAC) 20 mg capsule Indications: Mild episode of recurrent major depressive disorder (HCC) Take 1 capsule by mouth once daily. Take with 40 mg dose for total daily dose of 60 mg. 90 capsule 0 02/11/2023 Active Start: 07-15-2022 take 1 capsule by mo uth once daily FLUoxetine (PROZAC) 20 mg capsule Indications: Mild episode of recurrent major depressive disorder (HCC) Take 1 capsule by mouth once daily. Take with 40 mg dose for total daily dose of 60 mg. 30 capsule 1 07/15/2022 Active Start: 01-23-2021 End: 05-12-2023 take 1 capsule by mouth once daily FLUoxetine (PROZAC) 40 mg capsule Take 1 capsule by mouth once daily. 90 capsule 0 02/11/2023 05/12/2023 Active Comment on above: Take 1 capsule by mo uth once daily. 1 capsule by ORAL/FE EDING TUBE route once daily. Take 1 capsule by mo uth once daily. Take with 40 mg dose for total daily dose of 60 mg. levETIRAcetam 750 mg oral tablet (20 sources) Start: End: take 2 tablets by mouth twice daily levETIRAcetam (KEPPRA) 750 mg tablet Indications: Localization-related (focal) (partial) symptomatic epilepsy and epileptic syndromes with complex partial seizures, not intractable, without status epilepticus (HCC) Take 2 tablets by mouth two times a day. 360 tablet 3 10/10/2024 10/10/2025 Active Start: 08-22-2024 take 1 tablet by mouth twice d aily Levetiracetam (Keppra) 1,000 mg tablet Active 1000 mg PO TWICE A DAY 60 August 22, 2024 12:00am Start: 06-03-2023 End: 05-25-2024 take 2 tablets by mouth twice daily levETIRAcetam (KEPPRA) 750 mg tablet 2 tablets by ORAL/FEEDING TUBE route two times a day. 120 tablet 5 05/01/2024 Active Start: 07-20-2022 End: 04-16-2023 take 2 tablets by mouth twice daily levETIRAcetam (KEPPRA) 750 mg tablet 2 tablets by ORAL/FEEDING TUBE route twice daily. 120 tablet 8 07/20/2022 04/16/2023 Active Start: 07-17-2022 End: 04-16-2023 take 2 tablets by mouth twice daily levETIRAcetam (KEPPRA) 750 mg tablet 2 tablets by ORAL/FEEDING TUBE route twice daily. 120 tablet 8 07/20/2022 04/16/2023 Active Start: 06-11-2022 inject 750 mg intrav enously twice daily levETIRAcetam (KEPPRA) 500 mg/5 mL injection Inject 750 mg intravenously twice daily. 0 06/11/2022 Suspended Start: 10-15-2021 End: 07-12-2022 take 2 tablets by mouth twice daily levETIRAcetam (KEPPRA) 750 mg tablet Indications: Complex partial seizures with consciousness impaired (HCC) Take 2 tablets by mouth twice daily. 360 tablet 0 04/13/2022 07/12/2022 Active Start: 03-26-2021 End: 07-15-2021 take 2 tablets by mouth twice daily levETIRAcetam (KEPPRA) 750 mg tablet Indications: Complex partial seizures with consciousness impaired (HCC) Take 2 tablets by mouth twice daily. 360 tablet 0 07/15/2021 Active Start: 09-22-2018 End: 08-22-2024 take 1 tablet by mouth twice daily Levetiracetam 750 M G tablet Discontinued 750 mg PO TWICE A DAY September 22, 2018 10:51am August 22, 2024 5:03pm Start: 05-17-2017 End: 09-22-2018 take 2 tablets by mouth twice daily Levetiracetam 750 MG tablet Discontinued 1500 mg PO TWICE A DAY May 17, 2017 1:00am September 22, 2018 10:51am Start: 05-17-2017 End: 09-22-2018 take 1500 mg by mouth twice daily Levetiracetam Discon tinued 1500 MG PO TWICE A DAY May 17, 2017 12:00am September 22, 2018 9:51am Comment on above: Take 2 tablets by mo [facility] twice daily. take 2 tablets by mo [facility] twice a day Inject 750 mg intrav enously twice daily. 1 tablet by ORAL/FEE DING TUBE route twice daily. 2 tablets by ORAL/FE EDING TUBE route twice daily. 2 tablets by ORAL/FE EDING TUBE route two times a day. losartan potassium 50 mg oral tablet (9 sources) Angiotensin 2 Receptor Jimmy Start: 2025 take 1.5 tablets by mouth once daily losartan (COZAAR) 50 mg tablet Take 1.5 tablets by mouth once daily. 90 tablet 3 2025 Active Start: 10-09-2024 End: 2025 take 1 tablet by mouth once daily losartan (COZAAR) 50 mg tablet Take 1 tablet by mouth once daily. 90 tablet 3 10/09/2024 2025 Discontinued (Adjust Sig - Block E-Cancel) methylPREDNISolone (1 source) Corticosteroid Start: 12-05-2021 End: 12-11-2021 methylPREDNISolone (MEDROL, HERLINDA,) 4 mg Dose-Pack Indications: Acute pain of left shoulder Follow dosing instructions, take with food. 1 Package 0 12/05/2021 12/11/2021 Active Comment on above: Follow dosing instru ctions, take with food. 24 hr metoprolol succinate 25 mg extended release oral tablet (3 sources) beta-Adrenergic Jimmy Start: 12-22-2024 take 0.5 tablet by mouth once daily metoprolol succinate ER (TOPROL XL) 25 mg 24 hr tablet Take 0.5 tablets by mouth once daily. 45 tablet 1 12/22/2024 Active Start: 02-28-2019 End: 08-25-2021 take 1 tablet by mouth every twenty-four hours Metoprolol Succinate 25 mg tablet extended release 24 hr Discontinued PO February 28, 2019 12:00am August 25, 2021 10:39am midazolam 50 mg/ml nasal spray (8 sources) Benzodiazepine Start: 10-10-2024 End: 04-08-2025 midazolam (NAYZILAM) 5 mg/spray (0.1 mL) nasal spray Indications: Seizure (HCC) , Localization-related (focal) (partial) symptomatic epilepsy and epileptic syndromes with complex partial seizures, not intractable, without status epilepticus (HCC) Use 1 spray in the nose as needed for seizures lasting longer than 3 minutes (for convulsions) for up to 180 days. May repeat dose in alternate nostril after 10 minutes based on response and tolerability. 4 each 10/10/2024 04/08/2025 Active perflutren lipid microspheres 1.3 mL in NaCl (PF) 0.9% 10 mL injection (DEFINITY) (7 sources) Start: 10-25-2020 End: 2022 perflutren lipid microsphere s 1.3 mL in NaCl (PF) 0.9% 10 mL injection (DEFINITY) 125 ml sodium chloride 9 mg/ml prefilled syringe (20 sources) Start: 01-01-2025 sodium chlorid e 0.9 %, flush, (BD POSIFLUSH NORMAL SALINE 0.9) syringe Inject 5-10 mL intravenously as directed. 8 mL 5 01/01/2025 Active Start: 08-10-2024 End: 10-18-2024 sodium chloride 0.9 %, flush , (BD POSIFLUSH NORMAL SALINE 0.9) syringe Inject 5-10 mL intravenously as directed. 4 mL 5 10/18/2024 Active Start: 06-11-2022 0.9 % sodium c hloride (NACL 0.9%) infusion Inject 100 mL/hr intravenously continuous. 0 06/11/2022 Suspended Start: 09-26-2021 End: 06-23-2022 sodium chloride 0.9 %, flush , (NORMAL SALINE FLUSH) syringe Flush IV line with 5 -10mL Sodium Chloride 0.9% solution DIRECTED. Discard remainder of syringe after single use. 30 mL 10 01/15/2022 06/23/2022 Discontinued (Other) Start: 10-25-2020 End: 2022 sodium chloride 0.9 % (flush ) 10 mL (BD POSIFLUSH) Comment on above: Flush with 5 -10mL S odium Chloride 0.9% DIRECTED Discard remainder of syringe after single use. Flush IV line with 5 -10mL Sodium Chloride 0.9% solution DIRECTED. Discard remainder of syringe after single use. Inject 100 mL/hr int ravenously continuous. Completed/Discontinued Medications Medication Drug Class(es) Dates Sig (Normalized) Sig (Original) acetaminophen 325 mg oral tablet (1 source) Start: 06-11-2022 take 3 tablets by mouth four times daily acetaminophen (TYLENOL) 325 mg tablet 3 tablets by ORAL/FEEDING TUBE route four times daily. 0 06/11/2022 Suspended Comment on above: 3 tablets by ORAL/FE EDING TUBE route four times daily. amoxicillin 500 mg oral capsule (14 sources) Penicillin-class Antibacterial Start: 06-14-2020 amoxicillin (POLYMOX, AMOXIL) 500 mg capsule 4 po one hour before procedure. 4 capsule 1 06/14/2020 Active Comment on above: 4 po one hour before procedure. betamethasone 3 mg/ml / betamethasone acetate 3 mg/ml injectable suspension (1 source) Corticosteroid Start: 03-05-2022 End: 03-05-2022 betamethasone acetate-betamethas one sodium phosphate 12 mg injection (CELESTONE) Start: 03-05-2022 End: 03-05-2022 betamethasone acetate-betame thasone sodium phosphate 12 mg injection (CELESTONE) cephalexin 500 mg oral capsule (1 source) Cephalosporin Antibacterial Start: 06-18-2022 End: 06-23-2022 take 1 capsule by mouth every six hours cephALEXin (KEFLEX) 500 mg capsule 1 capsule by ORAL/FEEDING TUBE route every 6 hours for 7 days. 28 capsule 0 06/18/2022 06/23/2022 Discontinued (Other) Comment on above: 1 capsule by ORAL/FE EDING TUBE route every 6 hours for 7 days. citalopram 20 mg oral tablet (4 sources) Serotonin Reuptake Inhibitor Start: 02-28-2019 citalopram (CELEXA) 20 mg tablet Take by mouth. 0 02/28/2019 Active Start: 02-28-2019 Citalopram 20 mg tablet Active PO February 28, 2019 12:00am Start: 02-28-2019 Citalopram Act dina PO February 27, 2019 11:00pm Comment on above: Take by mouth. cyclobenzaprine hydrochloride 10 mg oral tablet (11 sources) Muscle Relaxant Start: 12-16-19 take 1 tablet by mouth three times daily as needed for muscle spasms cyclobenzaprine (FLEXERIL) 10 mg tablet Indications: Upper back pain Take 1 tablet by mouth three times daily as needed for muscle spasm. 40 tablet 0 12/15/2021 Active Comment on above: Take 1 tablet by [facility] three times daily as needed for muscle spasm. antihemophilic factor (recombinant), pegylated-aucl 1 unt injection (20 sources) Start: 07-19-19 End: 11-08-19 JIVI 3,000 (+/-) unit solr Indications: Hemophilia A (HCC) Inject 6,230 Units intravenously two times a week. Inject 6230 (+/- 10 %) units every Wednesday and and (#4 prn breakthrough doses) 12 Each 08/09/2024 11/07/2024 Discontinued (Other) Start: 06-29-2022 End: 01-26-2023 JIVI 3,000 (+/-) unit solr I ndications: Hemophilia A (HCC) Inject 6,230 Units intravenously two times a week. Inject 6230 (+/- 10 %) units every Wednesday and and (#4 prn breakthrough doses) 12 Each 5 01/26/2023 Active Start: 06-17-2021 End: 05-20-2022 FVIII rec,B-dom delet peg-au cl (JIVI) 3,000 (+/-) unit solr Indications: Hemophilia A (HCC) RECONSTITUTE THEN ADMINISTER JIVI 6230 UNITS (3115 x 2 )EVERY WEDNESDAY AND WEDNESDAY AND FOR BREAKTHROUGH BLEEDS. 20 Each 05/20/2022 Active Comment on above: RECONSTITUTE THEN AD CLAIM CLERK JIVI 6230 UNITS (3115 x 2 )EVERY WEDNESDAY AND WEDNESDAY AND FOR BREAKTHROUGH BLEEDS. Inject 6,230 Units i ntravenously two times a week. Inject 6230 (+/- 10 %) units every Wednesday and and (#4 prn breakthrough doses) 4 ml labetalol hydrochloride 5 mg/ml cartridge (1 source) beta-Adrenergic Jimym Start: 023 take 5 mg intravenously every two hours as needed labetalol (NORMODYNE) 20 mg/4 mL (5 mg/mL) syrg Inject 1 mL intravenously every 2 hours as needed (SBP >160). 0 06/11/2022 Suspended Comment on above: Inject 1 mL intraven ously every 2 hours as needed (SBP >160). 10 ml lidocaine hydrochloride 10 mg/ml injection (15 sources) Antiarrhythmic, Amide Local Anesthetic Start: End: lidocaine (PF) 10 mg/mL (1 %) 2 mL injection (XYLOCAINE) Start: 05-28-2020 lidocaine visc ous (LIDOCAINE VISCOUS) 2 % solution Indications: Dental fracture Soak cotton ball in solution and place adjacent to gum of painful tooth every 2 hours as needed. 120 mL 1 05/28/2020 Active Comment on above: Soak cotton ball in solution and place adjacent to gum of painful tooth every 2 hours as needed. morphine sulfate 30 mg extended release oral tablet (2 sources) Opioid Agonist Start: 02-28-2019 End: 08-25-2021 Morphine 30 mg tablet extended release Discontinued PO 60 February 28, 2019 12:00am August 25, 2021 10:39am Start: 02-28-2019 End: 08-25-2021 Morphine Discontinued PO 60 February 27, 2019 11:00pm August 25, 2021 9:39am naloxone hydrochloride 40 mg/ml nasal spray (1 source) Opioid Antagonist Start: 06-11-2022 naloxone 4 mg/actuation nasal spray (NARCAN) Use 1 spray in one nostril as needed for overdose. May repeat every 2 to 3 min in alternating nostrils until medical assistance is available 0 06/11/2022 Suspended Comment on above: Use 1 spray in one n ostril as needed for overdose. May repeat every 2 to 3 min in alternating nostrils until medical assistance is available NORMAL SALINE FLUSH syringe (2 sources) Start: 01-15-2021 End: 09-24-2021 NORMAL SALINE FLUSH syringe Flush with 5 -10mL Sodium Chloride 0.9% DIRECTED Discard remainder of syringe after single use. 10 mL 1 01/15/2021 09/24/2021 Discontinued Start: 01-15-2021 NORMAL SALINE FLUSH syringe Flush with 5 -10mL Sodium Chloride 0.9% DIRECTED Discard remainder of syringe after single use. 10 mL 1 01/15/2021 Active Comment on above: Flush with 5 -10mL S odium Chloride 0.9% DIRECTED Discard remainder of syringe after single use. omeprazole 20 mg delayed release oral capsule (13 sources) Proton Pump Inhibitor Start: take 1 capsule by mouth once daily omeprazole (PRILOSEC) 20 mg capsule Take 1 capsule by mouth once daily. 42 capsule 0 01/13/2021 Active Comment on above: Take 1 capsule by [facility] once daily. oxyCODONE hydrochloride 20 mg oral tablet (2 sources) Opioid Agonist Start: End: take 1 tablet by mouth five times daily Oxycodone 20 MG tablet Discontinued 20 mg PO 5 TIMES DAILY September 22, 2018 12:00am February 28, 2019 9:24am pantoprazole 40 mg delayed release oral tablet (2 sources) Proton Pump Inhibitor Start: End: pantoprazole (PROTONIX) 40 mg/20 mL oral liquid 20 mL by ORAL/FEEDING TUBE route DAILY (6 AM). 0 06/12/2022 06/23/2022 Discontinued (Other) Comment on above: 20 mL by ORAL/FEEDIN G TUBE route DAILY (6 AM). piperacillin 3000 mg / tazobactam 375 mg injection (1 source) Penicillin-class Antibacterial, beta Lactamase Inhibitor Start: inject 50 mL intravenously every six hours piperacillin-tazoba ctam (ZOSYN) 3.375 gram/50 mL in dextrose (iso-osmotic) Inject 50 mL intravenously every 6 hours. 0 06/11/2022 Suspended Comment on above: Inject 50 mL intrave nously every 6 hours. predniSONE 20 mg oral tablet (11 sources) Start: take 2 tablets by mouth once daily predniSONE (DELTASONE) 20 mg tablet Indications: Upper back pain Take 2 tablets by mouth once daily. 10 tablet 0 12/15/2021 Active Comment on above: Take 2 tablets by [facility] once daily. pregabalin 150 mg oral capsule (13 sources) Start: take 1 capsule by mouth twice daily pregabalin (LYRICA) 150 mg capsule Indications: Complex partial seizures with consciousness impaired (HCC) take 1 capsule by mouth twice a day 60 capsule 5 08/05/2020 Active Comment on above: take 1 capsule by [facility] twice a day 10 ml propofol 10 mg/ml injection (1 source) General Anesthetic Start: propofol infusion (DIPRIVAN) 10 mg/mL injection Inject 500-6,000 mcg/min intravenously continuous. 0 06/11/2022 Suspended Comment on above: Inject 500-6,000 mcg /min intravenously continuous. sennosides, [facility] 8.6 mg oral tablet (3 sources) Start: End: take 1 tablet by mouth twice daily senna (SENOKOT) 8.6 mg tab 1 tablet by ORAL/FEEDING TUBE route twice daily. 60 tablet 2 06/18/2022 07/17/2022 Discontinued (Discontinued by Patient) Comment on above: 1 tablet by ORAL/FEE DING TUBE route twice daily. tiZANidine 4 mg oral tablet (2 sources) Central alpha-2 Adrenergic Agonist Start: End: take 1 tablet by mouth three times daily Tizanidine 4 MG tablet Discontinued 4 mg PO THREE TIMES A DAY September 22, 2018 12:00am February 28, 2019 9:24am Problems Active Problems Problem Classification Problem Date Documented Date Episodic/Chronic Acute cerebrovascular disease (20 sources) Ischemic stroke; Translations: [Cerebral infarction due to unspecified occlusion or stenosis of left middle cerebral artery] Onset: 07-17-2014 Resolved: 06-11-2022 05-19-2021 Chronic Aortic; peripheral; and visceral artery aneurysms (20 sources) Aneurysm of ascending aorta; Translations: [Thoracic aortic aneurysm, without rupture] Onset: 09-08-2009 Resolved: 06-30-2017 09-09-2015 Chronic Cardiac and circulatory congenital anomalies (20 sources) Bicuspid aortic valve; Translations: [Congenital insufficiency of aortic valve] Onset: 09-08-2009 Resolved: 05-28-2020 05-28-2020 Chronic Coagulation and hemorrhagic disorders (20 sources) Hereditary factor VIII deficiency disease; Translations: [Hereditary factor VIII deficiency] Onset: 09-02-2009 Resolved: 07-02-2017 05-19-2021 Chronic Congestive heart failure; nonhypertensive (1 source) Chronic systolic (congestive) heart failure; Translations: [Chronic systolic congestive heart failure (HCC)] Onset: 10-09-2024 Chronic Deficiency and other anemia (2 sources) Anemia due to blood loss; Translations: [Iron deficiency anemia secondary to blood loss (chronic)] Chronic Deficiency and other anemia (2 sources) Iron deficiency anemia due to blood loss; Translations: [Iron deficiency anemia secondary to blood loss (chronic)] 07-21-2023 Chronic Deficiency and other anemia (2 sources) Iron deficiency anemia secondary to blood loss (chronic); Translations: [Anemia, blood loss] Onset: 07-17-2024 Chronic Diseases of white blood cells (20 sources) Leukocytosis; Translations: [Elevated white blood cell count, unspecified] Onset: 12-11-2009 Resolved: 12-12-2009 06-11-2022 Chronic Epilepsy; convulsions (20 sources) Complex partial seizure with impairment of consciousness; Translations: [Localization-related (focal) (partial) symptomatic epilepsy and epileptic syndromes with complex partial seizures, not intractable, without status epilepticus] Onset: 01-18-2019 Chronic Heart valve disorders (20 sources) Nonrheumatic aortic (valve) insufficiency; Translations: [Aortic valve disorders] Onset: 09-09-2015 Resolved: 01-03-2021 05-19-2021 Chronic Mood disorders (20 sources) Depressive disorder; Translations: [Depression] Onset: 02-19-2015 Resolved: 01-03-2021 02-19-2015 Chronic Nephritis; nephrosis; renal sclerosis (20 sources) Primary pauci-immune necrotizing and crescentic glomerulonephritis; Translations: [Unspecified nephritic syndrome with other morphologic changes] Onset: 09-17-2014 07-01-2017 Chronic Open wounds of head; neck; and trunk (3 sources) Scalp laceration; Translations: [Laceration without foreign body of scalp, initial encounter] 06-27-2022 Episodic Osteoarthritis (20 sources) Arthritis; Translations: [Unspecified osteoarthritis, unspecified site] Onset: 07-02-2012 07-08-2017 Chronic Other and ill-defined heart disease (20 sources) Systolic dysfunction; Translations: [Heart disease, unspecified] Onset: 09-28-2015 07-01-2017 Chronic Other and ill-defined heart disease (1 source) Heart disease, unspecified; Translations: [Systolic dysfunction] Onset: 07-01-2017 Chronic Other bone disease and musculoskeletal deformities (1 source) Avascular necrosis of bone; Translations: [Idiopathic aseptic necrosis of unspecified bone] Chronic Other circulatory disease (1 source) History of cerebrovascular accident; Translations: [Personal history of transient ischemic attack (TIA), and cerebral infarction without residual deficits] 12-20-2024 Episodic Other circulatory disease (1 source) Personal history of transient ischemic attack (TIA), and cerebral infarction without residual deficits; Translations: [History of CVA (cerebrovascular accident)] Onset: 12-20-2024 Episodic Other injuries and conditions due to external causes (1 source) Closed injury of head; Translations: [Unspecified injury of head, initial encounter] 08-22-2024 Episodic Other injuries and conditions due to external causes (1 source) Unspecified injury of head, initial encounter; Translations: [Unspecified injury of head, initial encounter] Onset: 08-28-2024 Episodic Other lower respiratory disease (3 sources) Multiple nodules of lung; Translations: [Other nonspecific abnormal finding of lung field] Episodic Other nervous system disorders (20 sources) Chronic pain; Translations: [Other chronic pain] Onset: 07-18-2014 05-28-2020 Chronic Other nervous system disorders (20 sources) Chronic pain syndrome; Translations: [Chronic pain syndrome] Onset: 07-02-2012 Resolved: 07-02-2012 Chronic Other nervous system disorders (1 source) H/O: epilepsy; Translations: [Personal history of other diseases of the nervous system and sense organs] 08-22-2024 Episodic Other non-traumatic joint disorders (20 sources) Hemophilic arthropathy; Translations: [Hemophilic arthropathy] Onset: 06-18-2020 06-18-2020 Chronic Other non-traumatic joint disorders (1 source) Shoulder pain; Translations: [Pain in left shoulder] Episodic Other non-traumatic joint disorders (2 sources) Pain in elbow; Translations: [Pain in right elbow] 08-25-2021 Episodic Other upper respiratory disease (1 source) Pain in throat; Translations: [Pain in throat] Episodic Tatum-; endo-; and myocarditis; cardiomyopathy (except that caused by tuberculosis or sexually transmitted disease) (20 sources) Heart valve disorder; Translations: [Endocarditis, valve unspecified] Onset: 01-29-2015 Resolved: 07-02-2017 01-03-2021 Chronic Pulmonary heart disease (20 sources) Pulmonary hypertension; Translations: [Pulmonary hypertension, unspecified] 01-03-2021 Chronic Residual codes; unclassified (1 source) Transient alteration of awareness; Translations: [Transient alteration of awareness] 08-22-2024 Episodic Residual codes; unclassified (1 source) Pain, unspecified; Translations: [Pain] Onset: 12-20-2024 Episodic Skin and subcutaneous tissue infections (1 source) Cellulitis of skin; Translations: [Cellulitis, unspecified] Episodic Substance-related disorders (20 sources) Drug abuse in remission; Translations: [Other psychoactive substance abuse, in remission] Onset: 06-16-2022 Resolved: 06-17-2022 01-03-2021 Chronic Superficial injury; contusion (1 source) Hematoma of scalp; Translations: [Contusion of scalp, subsequent encounter] Episodic Unclassified (20 sources) SUMMARY; Translations: [SUMMARY] Onset: 12-08-2009 09-28-2015 Unclassified (1 source) or ER or urgent care Unclassified (1 source) Congenital bicuspid aortic valve; Translations: [Congenital bicuspid aortic valve] Onset: 05-28-2020 Unclassified (1 source) Aneurysm of ascending aorta without rupture (HCC); Translations: [Aneurysm of ascending aorta without rupture (HCC)] Onset: 09-09-2015 Past or Other Problems Problem Classification Problem Date Documented Date Episodic/Chronic Acute and unspecified renal failure (20 sources) Acute renal failure syndrome; Translations: [Acute kidney failure, unspecified] Onset: 5 Resolved: 1 05-19-2021 Episodic Acute cerebrovascular disease (2 sources) Acute cerebrovascular disease 12-12-2021 Acute posthemorrhagic anemia (20 sources) Acute posthemorrhagic anemia; Translations: [Acute posthemorrhagic anemia] Onset: 0 Resolved: 3 07-02-2012 Episodic Administrative/social admission (4 sources) Drug therapy finding; Translations: [Other specified counseling] Onset: 5 11-14-2024 Episodic Blindness and vision defects (20 sources) Hemianopia ; Translations: [Heteronymous bilateral field defects] Onset: 5 05-19-2021 Episodic Cardiac and circulatory congenital anomalies (1 source) Personal history of (corrected) congenital malformations of heart and circulatory system; Translations: [H/O aortic coarctation repair] Onset: 3 Episodic Diabetes mellitus without complication (20 sources) Metabolic stress hyperglycemia; Translations: [Hyperglycemia, unspecified] Onset: 6 Resolved: 6 05-19-2021 Episodic Disorders of teeth and jaw (20 sources) Dental caries on smooth surface penetrating into pulp; Translations: [Dental caries on smooth surface penetrating into pulp] Onset: 5 Resolved: 1 01-09-2015 Episodic Epilepsy; convulsions (20 sources) Seizure; Translations: [Unspecified convulsions] Onset: 5 Resolved: 1 06-11-2022 Episodic Essential hypertension (20 sources) Essential hypertension; Translations: [Essential (primary) hypertension] Onset: 6 Resolved: 1 05-19-2021 Chronic Fluid and electrolyte disorders (20 sources) Hypernatremia; Translations: [Hyperosmolality and hypernatremia] Onset: 0 Resolved: 6 06-11-2022 Episodic Immunizations and screening for infectious disease (5 sources) Patient encounter status; Translations: [Encounter for immunization] Onset: 4 02-12-2023 Episodic Other circulatory disease (20 sources) Elevated blood-pressure reading without diagnosis of hypertension; Translations: [Elevated blood-pressure reading, without diagnosis of hypertension] Onset: 5 Resolved: 1 05-19-2021 Episodic Other diseases of kidney and ureters (20 sources) Acute renal insufficiency; Translations: [Disorder of kidney and ureter, unspecified] Onset: 0 Resolved: 0 Episodic Other lower respiratory disease (20 sources) Acute pulmonary edema; Translations: [Acute pulmonary edema] Onset: 0 Resolved: 3 07-02-2012 Episodic Other lower respiratory disease (20 sources) Nodule of lung; Translations: [Solitary pulmonary nodule] Onset: 6 Resolved: 1 05-19-2021 Episodic Other lower respiratory disease (1 source) Other nonspecific abnormal finding of lung field; Translations: [Lung nodules] Onset: 4 Episodic Other nervous system disorders (20 sources) Expressive dysphasia; Translations: [Aphasia] Onset: 8 Resolved: 1 01-03-2021 Chronic Other nervous system disorders (20 sources) Postoperative pain ; Translations: [Other acute postprocedural pain] Onset: 6 Resolved: 1 05-19-2021 Episodic Other screening for suspected conditions (not mental disorders or infectious disease) (20 sources) Nonspecific ST-T abnormality on electrocardiogram; Translations: [Abnormal electrocardiogram [ECG] [EKG]] Onset: 0 Resolved: 0 Episodic Tatum-; endo-; and myocarditis; cardiomyopathy (except that caused by tuberculosis or sexually transmitted disease) (20 sources) Vegetation of heart; 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 endocarditis] Onset: 5 Resolved: 1 05-19-2021 Episodic Pleurisy; pneumothorax; pulmonary collapse (20 sources) Atelectasis; Translations: [Atelectasis] Onset: 6 Resolved: 1 05-19-2021 Episodic Residual codes; unclassified (20 sources) Pain; Translations: [Pain, unspecified] Onset: 5 Resolved: 1 05-19-2021 Episodic Respiratory failure; insufficiency; arrest (adult) (20 sources) Acute respiratory failure; Translations: [Acute respiratory failure, unspecified whether with hypoxia or hypercapnia] Onset: 5 Resolved: 5 Episodic Spondylosis; intervertebral disc disorders; other back problems (20 sources) Backache; Translations: [Dorsalgia, unspecified] Onset: 6 05-19-2021 Episodic Unclassified (20 sources) Drug therapy finding; Translations: [DVT prophylaxis] Onset: 5 Resolved: 1 05-19-2021 Results Test Name Value Interpretation Reference Range Facility Basic metabolic 2000 panelon 02-20-2025 Anion gap [Moles/Vol] 13 mmol/L Normal 8-15 [facility] Comment on above: Order Comment: Speci men Type: BLOOD SPECIMENOrdering Facility: [facility] Address: [address] [place] [address] Performed By: #### 2 4321-2 ####[facility] LABCLIA [id number] [facility] [place] [address] [place] Calcium [Mass/Vol] 9.5 mg/dL Normal 8.5-10.2 [facility] Comment on above: Order Comment: Speci men Type: BLOOD SPECIMENOrdering Facility: [facility] Address: [address] [place] [id number] Performed By: #### 2 4321-2 ####[facility] LABCLIA [id number] [facility] [address] [address] [place] Chloride [Moles/Vol] 98 mmol/L Normal 98-107 [facility] Comment on above: Order Comment: Speci men Type: BLOOD SPECIMENOrdering Facility: [facility] Address: [address] [place] [address] Performed By: #### 2 4321-2 ####[facility] LABCLIA [id number] [facility] [place] [id number] [place] CO2 [Moles/Vol] 26 mmol/L Normal 22-30 [facility] Comment on above: Order Comment: Speci men Type: BLOOD SPECIMENOrdering Facility: [facility] Address: [address] [place] [address] Performed By: #### 2 4321-2 ####[facility] LABCLIA [id number] [place] [id number] [place] Creatinine [Mass/Vol] 1.25 mg/dL High 0.73-1.22 [facility] Comment on above: Order Comment: Speci men Type: BLOOD SPECIMENOrdering Facility: [facility] Address: [address] [place] [address] Performed By: #### 2 4321-2 ####[facility] LABCLIA [id number] [place] [id number] [place] eGFRcr SerPlBld CKD-EPI 2020 76 mL/min/1.73m??? Normal >=60 [facility] Comment on above: Order Comment: Speci men Type: BLOOD SPECIMENOrdering Facility: [facility] Address: [address] [place], [place] [id number] Result Comment: Agatha mated Glomerular Filtration Rate (eGFR) is calculated using the 2020 CKD-EPI creatinine equation. This equation utilizes serum creatinine, sex, and age as parameters. The creatinine assay has traceable calibration to isotope dilution-mass spectrometry. Refer to KDIGO guidelines for clinical interpretation. In patients with unstable renal function, e.g. those with acute kidney injury, the eGFR may not accurately reflect actual GFR. Performed By: #### 2 4321-2 ####[facility] LABIA [id number] [place] [id number] [place] Glucose [Mass/Vol] 91 mg/dL Normal 74-99 [facility] Comment on above: Order Comment: Betty contreras Type: BLOOD SPECIMENOrdering Facility: [facility] Address: [address] [place] [address] Result Comment: The [place] Diabetes Association (ADA) provides guidance for cutoff values for fasting glucose and random glucose. The ADA defines fasting as no caloric intake for at least 8 hours. Fasting plasma glucose results between 100 to 125 mg/dL indicate increased risk for diabetes (prediabetes). Fasting plasma glucose results greater than or equal to 126 mg/dL meet the criteria for diagnosis of diabetes. In the absence of unequivocal hyperglycemia, results should be confirmed by repeat testing. In a patient with classic symptoms of hyperglycemia or hyperglycemic crisis, random plasma glucose results greater than or equal to 200 mg/dL meet the criteria for diagnosis of diabetes. Reference: Standards of Medical Care in Diabetes 2016, [place] Diabetes Association. Diabetes Care. 2016.39(Suppl 1). Performed By: #### 2 4321-2 ####[facility] LABIA [id number] [place] [id number] [place] Potassium [Moles/Vol] 4.3 mmol/L Normal 3.7-5.1 [facility] Comment on above: Order Comment: Betty contreras Type: BLOOD SPECIMENOrdering Facility: [facility] Address: [address] [place] [address] Performed By: #### 2 4321-2 ####[facility] LABIA [id number] [address] [id number] [address] [place] Sodium [Moles/Vol] 137 mmol/L Normal 136-144 [facility] Comment on above: Order Comment: Speci men Type: BLOOD SPECIMENOrdering Facility: [facility] Address: [address] [place] [address] Performed By: #### 2 4321-2 ####[facility] LABCLIA [id number] [place] [id number] [place] Urea nitrogen [Mass/Vol] 28 mg/dL High 9-24 [facility] Comment on above: Order Comment: Speci men Type: BLOOD SPECIMENOrdering Facility: [facility] Address: [address] [place] [address] Performed By: #### 2 4321-2 ####[facility] LABCLIA [id number] [place] [id number] [place] Basic metabolic 2000 panelon 12-21-2024 Anion gap [Moles/Vol] 11 mmol/L Normal 8-15 [facility] Comment on above: Order Comment: Speci men Type: BLOOD SPECIMENOrdering Facility: [facility] Address: [address] [place] [address] Performed By: #### 2 4321-2 ####[facility] LABCLIA [id number] [address] [address] [place] Calcium [Mass/Vol] 9.5 mg/dL Normal 8.5-10.2 [facility] Comment on above: Order Comment: Speci men Type: BLOOD SPECIMENOrdering Facility: [facility] Address: [address] [place] [address] Performed By: #### 2 4321-2 ####[facility] LABCLIA [id number] [address] [address] [place] Chloride [Moles/Vol] 101 mmol/L Normal 98-107 [facility] Comment on above: Order Comment: Speci men Type: BLOOD SPECIMENOrdering Facility: [facility] Address: [address] [place], [place] [address] Performed By: #### 2 4321-2 ####[facility] LABCLIA [id number] [place] [id number] [place] CO2 [Moles/Vol] 28 mmol/L Normal 22-30 [facility] Comment on above: Order Comment: Speci men Type: BLOOD SPECIMENOrdering Facility: [facility] Address: [address] [place] [address] Performed By: #### 2 4321-2 ####[facility] LABIA [id number] [place] [address] [place] Creatinine [Mass/Vol] 1.02 mg/dL Normal 0.73-1.22 [facility] Comment on above: Order Comment: Speci men Type: BLOOD SPECIMENOrdering Facility: [facility] Address: [address] [place] [address] Performed By: #### 2 4321-2 ####[facility] LABIA [id number] [place] [id number] [place] eGFRcr SerPlBld CKD-EPI 2020 97 mL/min/1.73m??? Normal >=60 [facility] Comment on above: Order Comment: Speci men Type: BLOOD SPECIMENOrdering Facility: [facility] Address: [address] [place] [address] Result Comment: Agatha mated Glomerular Filtration Rate (eGFR) is calculated using the 2020 CKD-EPI creatinine equation. This equation utilizes serum creatinine, sex, and age as parameters. The creatinine assay has traceable calibration to isotope dilution-mass spectrometry. Refer to KDIGO guidelines for clinical interpretation. In patients with unstable renal function, e.g. those with acute kidney injury, the eGFR may not accurately reflect actual GFR. Performed By: #### 2 4321-2 ####[facility] LABCLIA [id number] [place] [id number] [place] Glucose [Mass/Vol] 77 mg/dL Normal 74-99 [facility] Comment on above: Order Comment: Speci men Type: BLOOD SPECIMENOrdering Facility: [facility] Address: [address] [place] [address] Result Comment: The [place] Diabetes Association (ADA) provides guidance for cutoff values for fasting glucose and random glucose. The ADA defines fasting as no caloric intake for at least 8 hours. Fasting plasma glucose results between 100 to 125 mg/dL indicate increased risk for diabetes (prediabetes). Fasting plasma glucose results greater than or equal to 126 mg/dL meet the criteria for diagnosis of diabetes. In the absence of unequivocal hyperglycemia, results should be confirmed by repeat testing. In a patient with classic symptoms of hyperglycemia or hyperglycemic crisis, random plasma glucose results greater than or equal to 200 mg/dL meet the criteria for diagnosis of diabetes. Reference: Standards of Medical Care in Diabetes 2016, [place] Diabetes Association. Diabetes Care. 2016.39(Suppl 1). Performed By: #### 2 4321-2 ####[facility] LABCLIA [id number] [place] [address] [place] Potassium [Moles/Vol] 4.6 mmol/L Normal 3.7-5.1 [facility] Comment on above: Order Comment: Speci men Type: BLOOD SPECIMENOrdering Facility: [facility] Address: [address] [place] [address] Performed By: #### 2 4321-2 ####[facility] LABCLIA [id number] [place] [id number] [place] Sodium [Moles/Vol] 140 mmol/L Normal 136-144 [facility] Comment on above: Order Comment: Speci men Type: BLOOD SPECIMENOrdering Facility: [facility] Address: [address] [place], [place] [address] Performed By: #### 2 4321-2 ####[facility] LABCLIA [id number] [address] [address] [place] Urea nitrogen [Mass/Vol] 12 mg/dL Normal 9-24 [facility] Comment on above: Order Comment: Speci men Type: BLOOD SPECIMENOrdering Facility: [facility] Address: [address] [place] [address] Performed By: #### 2 4321-2 ####[facility] LABCLIA [id number] ARIANA CALLES [id number] [place] [address] OF [facility] CNOVon 12-20-2024 CNOV Office Visit (ORAVON ) SUNITA HARRINGTON ([id number]) 1985 M Date Time Provider Department 12/20/24 2:30 PM VICTORINO MOELLER During your visit today, we recorded the following information about you: Victorino Moeller PA-C 12/20/2024 3:36 PM Addendum PROVIDER: GUILLERMO Bailey of the Right Ankle and Juan Manuel of the Left Ankle HPI: Sunita Harrington is a 39-year-old male presenting with chronic bilateral ankle pain. Sunita reports lifelong bilateral ankle pain, which he attributes to arthritis. He has undergone bilateral ankle arthroscopies twice, the first at age 12, to clean up the joints. He experiences significant pain after prolonged walking, which persists into the following day. He is unsure if one ankle is more affected than the other but notes that he tends to put more weight on his left side due to a history of hip surgery. He has a history of hemophilia A, CVA, seizures, SAH/ICH. Sunita has tried compression ankle braces and received steroid injections in his ankles, though without relief. 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 He denies any history of hemophilia or other bleeding disorders. 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 Arthritis of both ankles (M19.071) Chronic bilateral ankle arthritis with limited range of motion and presence of bone spurs. Previous arthroscopic surgeries on both ankles twice. Discussed that further debridement may not be effective due to reduced cartilage and potential for increased pain from [id number] contact. - Recommended wearing stiff-soled shoes or high-top boots like hiking boots for support. - Provided a list of suitable shoe options. - Fitted for bilateral ASO ankle braces to provide additional structural support. - Discussed risks and benefits of steroid injections; patient had previous injections with no significant relief. 2. Hemophilia (HCC) (D66) No current bleeding issues reported. Discussed potential complications of surgery due to bleeding risks. 3. History of CVA (cerebrovascular accident) (Z86.73) History of CVA with residual memory difficulties. Detailed instructions were reviewed with the patient and all questions were answered in detail. Patient voiced understanding and compliance with the above plan. We discussed emergent need to return to the express care or go to the emergency department. We discussed red flags associated with this condition and emergent treatment if they present. I spent a total of 30 minutes on the date of the service which included preparing to see the patient, [id number] patient care, completing clinical documentation, obtaining and/or reviewing separately obtained history, performing a medically appropriate examination, counseling and educating the patient/family/caregive r, ordering medications, tests, or procedures, communicating with other HCPs (not separately reported), independently interpreting results (not separately reported), and communicating results to the patient/family/caregive r. PAIN EVALUATION 12/18/2024 1836 12/20/2024 1421 Pain Location: Ankle-Right Ankle-Right left ankle Description: Sharp;Stabbing;Stiffnes s -- Duration Units: Years Years Frequency: Continuous Continuous Intervention/Comfort measure: Relaxation;Cold -- PHYSICAL FINDINGS: Vitals: There were no vitals taken for this visit. There were no vitals taken for this visit. Patient's vitals and nursing notes were reviewed. General appearance: healthy, alert, well hydrated, pleasant, no distress. Cardiovascular: no signs of upper or lower extremity edema Respiratory: no respiratory distress, no audible wheezing, no labored breathing Psychiatric: mood and affect are appropriate Neurologic: Alert and oriented x 3 and Normal speech. MUSCULOSKELETAL EXAMINATION: Gait: antalgic gait Inspection: Swelling: chronic bilateral ankles. Redness: no. Ecchymosis: no Palpation: Tender to bilateral anterior ankle ROM AND Strength: Dorsiflexion: significantly limit secondary to arthritis Plantar flexion: Full A/PROM noted with full muscle strength bilaterally Inversion: Full A/PROM noted with full muscle strength bilaterally. Eversion: Full A/PROM noted with full muscle strength bilaterally. Distal Neurological: Intact to light touch Pulse: 2+ DP and PT. QUARRY EQUIPMENT OPERATOR 2 sec Specialized Tests: There is no warmth, erythema, swelling or pain noted on examination of the bilateral calf areas. IMAGING: (Discussed with Dr. Fernando Rivera) Final results and radiologist's interpretation, available in the [facility] health record. Images were reviewed with the patient/family members in the off (more content not included)... Normal [facility] XR ANKLE 3V AP/LAT/OBL BILon 12-20-2024 XR ANKLE 3V AP/LAT/OBL OFELIA * * *Final Report* * * DATE OF EXAM: Dec 20 2024 2:22PM AFR [id number] - XR ANKLE 3V AP/LAT/OBL OFELIA / PROCEDURE REASON: Pain * * * * Physician Interpretation * * * * HISTORY (as given from clinical provider): Pain . Additional history provided by the performing technologist (if any): --> BILATERAL ANKLE PAIN TECHNIQUE: XR ANKLE 3V AP/LAT/OBL OFELIA COMPARISON: None RESULT: Severe ankle osteoarthritis bilaterally and symmetrically. Subtalar joints are preserved bilaterally. Mature ossifications near the tips of the medial malleoli bilaterally, left larger than right consistent with remote injury. No acute fractures. No other significant abnormality. IMPRESSION: SEVERE OSTEOARTHRITIS Production Control Pegboard Clerk: WILBUR Transcribe Date/Time: Dec 21 2024 8:56A Dictated by : MURPHY HINKLE MD This examination was interpreted and the report reviewed and electronically signed by: MURPHY HINKLE MD on Dec 21 2024 8:56AM EST [id number] [facility] Tele[facility] (WideOrbitAGRE) SUNITA HARRINGTON ([id number]) 1985 M Date Time Provider Department 11/06/24 AUSTEN BLEVINS During your visit today, we recorded the following information about you: Georgette Anton, SHANTEL 11/06/2024 11:46 AM Signed Patients mother called in, they are sending him 4,500 units of Jivi two times a week instead of the 6,230 units. Not sure how this works, does this amount sound correct? How do they change this medicine? He has been having a rough time with his ankles, they are swollen and he can barely move them, could this be due to the lower dose? SHANTEL Whiting Weiquan, MD 11/06/2024 9:26 PM Signed Not sure why the dose was changed. Prescribed 6230 units. Did he call his insurance? Could be. If the symptom is severe, he needs to go to ED. MD Sloane Molina Katelyn, SHANTEL 11/07/2024 10:13 AM Signed Called over to [facility] specialty pharmacy, contact representative attempted to get pharmacist on the phone with no success, she will have them call me when they get a moment. SHANTEL Whiting Katelyn, SHANTEL 11/07/2024 11:30 AM Addendum Pharmacist called me back from [facility], jivi was switched to esperoct per patients insurance, no current script in the system. Can you write for new esperoct script just to make sure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 Toni Aquino on 08-22-2024 Anion gap [Moles/Vol] 10 mmol/L - [facility] BUN/creatinine ratioOrdered By: Toni Aquino on 08-22-2024 Urea nitrogen/Creatinine [Mass ratio] 17.8 mg/mg - [facility] Basic Metabolic Profile (BMP )on 08-22-2024 BUN/CRE 17.8 RATIO Normal - [facility] Comment on above: Performed By: #### L 100.0100, L500.2500 #### [facility] [address] [place], [address] Calcium [Mass/Vol] 9.2 mg/dL Normal 7.6-11.0 [facility] Comment on above: Performed By: #### L 100.0100, L500.2500 #### [facility] [address] [place], [address] Chloride [Moles/Vol] 103 mmol/L Normal 98-108 [facility] Comment on above: Performed By: #### L 100.0100, L500.2500 #### [facility] [address] [place], [address] CO2 [Moles/Vol] 26.8 mmol/L Normal 21.0-32.0 [facility] Comment on above: Performed By: #### L 100.0100, L500.2500 #### [facility] [address] [place], [address] Creatinine [Mass/Vol] 1.03 mg/dL Normal 0.70-1.20 [facility] Comment on above: Performed By: #### L 100.0100, L500.2500 #### [facility] [address] [place], [address] ECRCL 130.14 ml/min Normal 50-250 [facility] Comment on above: Performed By: #### L 100.0100, L500.2500 #### [facility] [address] [place], [address] GAP 10 Normal 5-15 [facility] Comment on above: Performed By: #### L 100.0100, L500.2500 #### [facility] [address] [place], [address] GFR/1.73 sq M.predicted among non-blacks MDRD (S/P/Bld) [Vol rate/Area] 96 mL/min/{1.73_m2} Normal >60 [facility] Comment on above: Result Comment: mL/m in/1.73m2 CKD-EPI Creatinine Equation (2020) Performed By: #### L 100.0100, L500.2500 #### [facility] [address] [place], [address] Glucose [Mass/Vol] 113 mg/dL High 70-99 [facility] Comment on above: Performed By: #### L 100.0100, L500.2500 #### [facility] [address] [place], [address] Potassium [Moles/Vol] 4.7 mmol/L Normal 3.3-5.1 [facility] Comment on above: Performed By: #### L 100.0100, L500.2500 #### [facility] [address] [place], [address] Sodium [Moles/Vol] 140 mmol/L Normal 133-145 [facility] Comment on above: Performed By: #### L 100.0100, L500.2500 #### [facility] [address] [place], [place], [address] Urea nitrogen [Mass/Vol] 18 mg/dL Normal 4-19 [facility] Comment on above: Performed By: #### L 100.0100, L500.2500 #### [facility] [address] [place], [place], [address] Basophil percentageOrdered B y: Toni Aquino on 08-22-2024 Basophils/100 WBC (Bld) 0.1 % 0-1 [facility] Brain/Head without Contrasto n 08-22-2024 Brain/Head without Contrast [facility] Imaging Services [address] [place], [place] [address] Brain/Head without Contrast MR#: [id number] Acct: [id number] Name: SUNITA HARRINGTON Rep #: [id number] : 1985 M 39 From: Ramón ann MD PCP: CINDY Rodriguez Status: REG ER Study: Brain/Head without Contrast Date of Exam: 06/17 Exam# [id number] Ordering Dr: Toni Aquino MD PROCEDURE: BRAIN/HEAD WITHOUT CONTRAST 08/22/2024 REASON FOR EXAM: TRAUMA, HEMOPHILIAC Abrasions to the right side of the face. TECHNIQUE: Head CT without intravenous contrast. Coronal and Sagittal reconstruction series were provided. One or more dose reduction techniques were used (e.g., Automated exposure control, adjustment of the mA and/or kV according to patient size, use of iterative reconstruction technique. RADIATION DOSE SUMMARY: CTDlvol: 44.99 mGy DLP: 829.85 mGycm COMPARISON: Comparison is made with prior study dated September 22, 2018. FINDINGS: Brain: Stable focal area of encephalomalacia is in the right frontal lobe as well as in the left posterior temporal parietal lobe and right occipital lobe. CSF Spaces: Mild generalized cerebral atrophy Sinuses/Mastoids: Soft tissue swelling overlying the right orbital region. Bones: Status post right frontal and right posterior parietal occipital craniotomies. CT/Brain/Head without Contrast IMPRESSION: No evidence of acute intracranial abnormality. Stable examination. Soft tissue swelling overlying the right orbital region. Reading Location: [id number] CC: Dr. 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: Signed Normal [facility] Carbon dioxide, total [Moles /volume] in Central venous bloodOrdered By: Toni Aquino on 08-22-2024 CO2 [Moles/Vol] 26.8 mmol/L 21.0-32.0 [facility] Chloride assayOrdered By: Maia Aquino on 08-22-2024 Chloride [Moles/Vol] 103 mmol/L 98-108 [facility] Emergency Department Summary on 08-22-2024 Emergency Department Summary [facility] Medical Records Department [address] [place] [address] Emergency Department Summary 08/22/24 MR#: [id number] Acct: [id number] Name: SUNITA HARRINGTON Rep #: [id number] : 1985 39 From: Toni Aquino MD PCP: CINDY Rodriguez Status:REG ER Location: ED HPI HPI - Fall History of Present Illness Chief Complaint: Fall Informant: patient and family Narrative Narrative: 39-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 He lives with his sister, who was at work today when patient had an event that he does not remember. Sister came home to find him with injuries to his face. He does not have a headache. He does not have any trouble with his vision. He has soreness in his lips and the face near his right eye. He is bleeding from both of these areas. He denies any other pain or injury. He takes Keppra for seizures, unknown what dose right now but he takes Factor VIII 6000 units twice weekly and when he hits his head, they have it at home and have not used it yet today. No recent illness. Patient remembers going to the bathroom and then was going to go lay down and does not remember when and where what happened. He took his Keppra this morning before all of this, has not missed any doses that he recalls recently, denies any recent medication changes or additions/deletions, has not seen his neurologist for a year or so. Does not have seizures very often maybe once a year or so. [facility] Medical History Seizure Hemophilia hx of stroke Home Medications ???Medication ???Instructions ???Recorded ???Last Taken ???Type antihemophil FVIII,full length 12,000 unit IV QODAY 07/07/16 Unkn own History 1,000 (+/-) unit IV solution citalopram 20 mg tablet PO #30 tabs 02/28/19 Unknown Histo ry levetiracetam 1,000 mg tablet 1,000 mg PO BID #60 tabs 08/22/24 Unknown Rx (Keppra) Allergy/AdvReac Type Severity Reaction Status Date / Time aspirin Allergy Other Verified 08/22/24 13:11 Iodinated Contrast Media Allergy Other Verified 08/22/24 13:11 (DYEE) NSAIDS (Non-Steroidal Allergy Other Verified 08/22/24 13:11 Anti-Inflamma Surgical History Hx of brain surgery History of ankle surgery History of arthroscopy of left knee Hx of heart surgery Social History Smoking Status: Never smoker alcohol intake: never ROS ROS ED Constitutional Constitutional ED: Denies chills or fever(s) Eyes Eyes: Denies change in vision or diplopia ENT ENT ED: Denies rhinorrhea or sore throat Cardiovascular Cardiovascular: Denies chest pain or palpitations Respiratory/Chest Respiratory/Chest: Denies cough or dyspnea Gastrointestinal Gastrointestinal: Denies abdominal pain, diarrhea, nausea or vomiting Genitourinary Genitourinary ED: Denies dysuria or hematuria Musculoskeletal Musculoskeletal: Denies back pain or neck pain Integumentary Reports laceration; Denies abscess or rash Neurologic Neurologic: Reports other Details: Amnestic to earlier events no other memory issues or confusion ; Denies headache(s), paresthesias or weakness Psychiatric Psychiatric: Denies anxiety or suicidal thoughts EXAM Physical Exam Const Vital Signs: 08/22/24 13:07 08/22/24 13:20 08/22/24 14:07 Temperature 96.4 F L Temperature Source Temporal Pulse Rate 66 Respiratory Rate 19 H 16 Respiratory Effort Normal Respiratory Depth Normal Respiratory Pattern Normal Blood Pressure 134/83 H 145/99 H Blood Pressure Mean 100 114 Pulse Ox 98 Oxygen Delivery Method Room Air Room Air 08/22/24 15:00 08/22/24 16:00 Temperature Temperature Source Pulse Rate Respiratory Rate Respiratory Effort Respiratory Depth Respiratory Pattern Blood Pressure 125/72 H 136/73 H Blood Pressure Mean 89 94 Pulse Ox Oxygen Delivery Method Positive well nourished and well developed General Appearance ED: well developed and NAD HEENT Reports moist mucous membranes HEENT Narrative: Right lateral periorbital ecchymosis, but not around the eye. No raccoon eyes. There is an associated laceration here, 1.5 cm, it is on the lateral aspect of the right upper eyelid but does not involve the margin and is not through and through, I everted the eyelid to check. There is no sign of globe trauma. There is no bony facial tenderness. There is also contusion to the right upper lip and contusion to the right lower lip with a laceration on the vermilion not including the border that is irregular with a flap and 2 cm, full-thickness not through and through no dentition injury. There is a second 1 cm L-shaped laceration only on t (more content not included)... Normal [facility] Eosinophil percentageOrdered By: Toni Aquino on 08-22-2024 Eosinophils/100 WBC (Bld) 0.1 % 0-5 [facility] Erythrocyte distribution wid th ratioOrdered By: Toni Aquino on 08-22-2024 Erythrocyte distribution width (RBC) [Ratio] 13.2 % 11.6-14.6 [facility] Erythrocyte distribution wid th standard deviationOrdered By: Toni Aquino on 08-22-2024 Erythrocyte distribution width (RBC) [Entitic vol] 40.5 fL 35.1-43.9 [facility] Estimation of creatinine angel aranceOrdered By: Toni Aquino on 08-22-2024 Estimated Creatinine Clearance Calc 130.14 ml/min 50-250 [facility] GFR/1.73 sq M.predicted velasquez g non-blacks MDRD (S/P/Bld) [Vol rate/Area]Ordered By: Toni Aquino on 08-22-2024 Estimated GFR (MDRD) Non-Af Amer 96 >60 [facility] Comment on above: mL/min/1.73m2 CKD-EP I Creatinine Equation (2020) Hematocrit Auto (Bld) [Volum e fraction]Ordered By: Toni Aquino on 08-22-2024 Hematocrit (Bld) [Volume fraction] 53.2 % 40-54 [facility] Hemoglobin measurementOrdere d By: Toni Aquino on 08-22-2024 Hemoglobin (Bld) [Mass/Vol] 18.1 g/dL High 13.0-16.5 [facility] Comment on above: CRITICAL VALUE BUTT D TO Monse DESHPANDE08/22/24 1406 Christiana Henderson.RESULTS READ BACK BY SAME. Immature granulocytes/100 WB C Auto (Bld)Ordered By: Toni Aquino on 08-22-2024 Immature granulocytes/100 WBC (Bld) 0.300 % 0.0-0.9 [facility] Comment on above: IG% - Immature Granu locytes (promyelocytes, myelocytes and metamyelocytes) > 1% indicates that a LEFT SHIFT is Present. Lymphocytes Auto (Unsp spec) [#/Vol]Ordered By: Toni Aquino on 08-22-2024 Lymphocytes (Bld) [#/Vol] 0.96 10*3/uL 0.83-4.51 [facility] Lymphocytes/100 WBC Auto (Un sp spec)Ordered By: Toni Aquino on 08-22-2024 Lymphocytes/100 WBC (Bld) 6.6 % Low 19-41 [facility] MCV (mean corpuscular volume ) determinationOrdered By: Toni Aquino on 08-22-2024 MCV (RBC) [Entitic vol] 84.7 fL 80-94 [facility] Mean corpuscular hemoglobin (MCH) determinationOrdered By: Toni Aquino on 08-22-2024 MCH (RBC) [Entitic mass] 28.8 pg 27.0-32.0 [facility] Mean corpuscular hemoglobin concentration (MCHC) determinationOrdered By: Toni Aquino on 08-22-2024 MCHC (RBC) [Mass/Vol] 34.0 g/dL 32-36 [facility] Mean platelet volume determi nationOrdered By: Toni Aquino on 08-22-2024 Platelet mean volume (Bld) [Entitic vol] 10.0 fL 6.2-12.0 [facility] Monocyte percentageOrdered B y: Toni Aquino on 08-22-2024 Monocytes/100 WBC (Bld) 3.5 % 0-10 [facility] Neutrophil percentageOrdered By: Toni Aquino on 08-22-2024 Neutrophils/100 WBC (Bld) 89.4 % High 47-70 [facility] Nucleated red blood cell per centageOrdered By: Toni Aquino on 08-22-2024 Nucleated RBC/100 WBC (Bld) [Ratio] 0 % 0-5 [facility] Platelet countOrdered By: Maia Aquino on 08-22-2024 Platelets (Bld) [#/Vol] 195 10*3/uL 150-450 [facility] Potassium (Unsp spec) [Mass/ Vol]Ordered By: Toni Aquino on 08-22-2024 Potassium [Moles/Vol] 4.7 mmol/L 3.3-5.1 [facility] RBC Auto (Bld) [#/Vol]Ordere d By: Toni Aquino on 08-22-2024 RBC (Bld) [#/Vol] 6.28 10*6/uL High 4.6-6.2 [facility] Serum creatinine measurement (mass/volume)Ordered By: Toni Aquino on 08-22-2024 Creatinine [Mass/Vol] 1.03 mg/dL 0.70-1.20 [facility] Serum glucose measurement (m ass/volume)Ordered By: Toni Aquino on 08-22-2024 Glucose [Mass/Vol] 113 mg/dL High 70-99 [facility] Serum or plasma calcium ronni urement (mass/volume)Ordered By: Toni Aquino on 08-22-2024 Calcium [Mass/Vol] 9.2 mg/dL 7.6-11.0 [facility] Serum or plasma urea nitroge n measurement (mass/volume)Ordered By: Toni Aquino on 08-22-2024 Urea nitrogen [Mass/Vol] 18 mg/dL 4-19 [facility] Sodium levelOrdered By: Eliazar Aquino on 08-22-2024 Sodium [Moles/Vol] 140 mmol/L 133-145 [facility] White blood cell (WBC) count Ordered By: Toni Aquino on 08-22-2024 WBC (Bld) [#/Vol] 14.5 10*3/uL High 4.4-11.0 [facility] CBC W Auto Differential pane l (Bld)on 07-17-2024 Basophils (Bld) [#/Vol] 0.04 10*3/uL Normal <0.11 [facility] Comment on above: Order Comment: Speci men Type: BLOOD SPECIMEN Ordering Facility: [facility] Address: [address] [place] [address] Performed By: #### 5 7021-8 #### [facility] CLIA [id number] [address] OF [facility] Basophils/100 WBC (Bld) 0.6 % Normal [facility] Comment on above: Order Comment: Speci men Type: BLOOD SPECIMEN Ordering Facility: [facility] Address: [address] [place] [address] Performed By: #### 5 7021-8 #### [facility] CLIA [id number] [address] [place] Differential cell count method Nom (Bld) Auto Normal [facility] Comment on above: Order Comment: Speci men Type: BLOOD SPECIMEN Ordering Facility: [facility] Address: [address] [place] [address] Performed By: #### 5 7021-8 #### [facility] CLIA [id number] 1 [place] [address] [place] Eosinophils (Bld) [#/Vol] 0.08 10*3/uL Normal <0.46 [facility] Comment on above: Order Comment: Speci men Type: BLOOD SPECIMEN Ordering Facility: [facility] Address: [facility] [place] [address] Performed By: #### 5 7021-8 #### [facility] CLIA [id number] [address] OF [place] Eosinophils/100 WBC (Bld) 1.1 % Normal [facility] Comment on above: Order Comment: Speci men Type: BLOOD SPECIMEN Ordering Facility: [facility] Address: [address] [place] [address] Performed By: #### 5 7021-8 #### [facility] CLIA [id number] [address] OF [place] Erythrocyte distribution width (RBC) [Ratio] 12.9 % Normal 11.5-15.0 [facility] Comment on above: Order Comment: Speci men Type: BLOOD SPECIMEN Ordering Facility: [facility] Address: [address] [place] [address] Performed By: #### 5 7021-8 #### [facility] CLIA [id number] [address] OF [place] Hematocrit (Bld) [Volume fraction] 48.6 % Normal 39.0-51.0 [facility] Comment on above: Order Comment: Speci men Type: BLOOD SPECIMEN Ordering Facility: [facility] Address: [address] [place] [address] Performed By: #### 5 7021-8 #### [facility] CLIA [id number] [address] [place] Hemoglobin (Bld) [Mass/Vol] 16.4 g/dL Normal 13.0-17.0 [facility] Comment on above: Order Comment: Speci men Type: BLOOD SPECIMEN Ordering Facility: [facility] Address: [address] [place] [address] Performed By: #### 5 7021-8 #### [facility] CLIA [id number] [address] [place] Immature granulocytes (Bld) [#/Vol] 10*3/uL Normal <0.10 [facility] Comment on above: Order Comment: Speci men Type: BLOOD SPECIMEN Ordering Facility: [facility] Address: [facility] [place] [address] Performed By: #### 5 7021-8 #### [facility] CLIA [id number] [address] [place] [address] [place] Immature granulocytes/100 WBC (Bld) 0.3 % Normal [facility] Comment on above: Order Comment: Speci men Type: BLOOD SPECIMEN Ordering Facility: [facility] Address: [address] [place] [address] Performed By: #### 5 7021-8 #### [facility] CLIA [id number] [address] [place] Lymphocytes (Bld) [#/Vol] 2.06 10*3/uL Normal 1.00-4.00 [facility] Comment on above: Order Comment: Speci men Type: BLOOD SPECIMEN Ordering Facility: [facility] Address: [address] [place] [address] Performed By: #### 5 7021-8 #### [facility] CLIA [id number] [address] Lymphocytes/100 WBC (Bld) 28.4 % Normal [facility] Comment on above: Order Comment: Speci men Type: BLOOD SPECIMEN Ordering Facility: [facility] Address: [address] [place] [address] Performed By: #### 5 7021-8 #### [facility] CLIA [id number] [address] STATES OF [facility] MCH (RBC) [Entitic mass] 29.0 pg Normal 26.0-34.0 [facility] Comment on above: Order Comment: Speci men Type: BLOOD SPECIMEN Ordering Facility: [facility] Address: [address] [place] [address] Performed By: #### 5 7021-8 #### [facility] CLIA [id number] [address] [place] MCHC (RBC) [Mass/Vol] 33.7 g/dL Normal 30.5-36.0 [facility] Comment on above: Order Comment: Speci men Type: BLOOD SPECIMEN Ordering Facility: [facility] Address: [address] [place] [address] Performed By: #### 5 7021-8 #### [facility] CLIA [id number] [address] OF [place] MCV (RBC) [Entitic vol] 86.0 fL Normal 80.0-100.0 [facility] Comment on above: Order Comment: Speci men Type: BLOOD SPECIMEN Ordering Facility: [facility] Address: [address] [place] [address] Performed By: #### 5 7021-8 #### [facility] CLIA [id number] [address] OF [place] Monocytes (Bld) [#/Vol] 0.67 10*3/uL Normal <0.87 [facility] Comment on above: Order Comment: Speci men Type: BLOOD SPECIMEN Ordering Facility: [facility] Address: [address] [place] [address] Performed By: #### 5 7021-8 #### [facility] CLIA [id number] [address] Monocytes/100 WBC (Bld) 9.2 % Normal [facility] Comment on above: Order Comment: Speci men Type: BLOOD SPECIMEN Ordering Facility: [facility] Address: [address] [place] [address] Performed By: #### 5 7021-8 #### [facility] CLIA [id number] [address] Neutrophils (Bld) [#/Vol] 4.38 10*3/uL Normal 1.45-7.50 [facility] Comment on above: Order Comment: Speci men Type: BLOOD SPECIMEN Ordering Facility: [facility] Address: [address] [place] [address] Performed By: #### 5 7021-8 #### [facility] CLIA [id number] [address] OF [place] Neutrophils/100 WBC (Bld) 60.4 % Normal [facility] Comment on above: Order Comment: Speci men Type: BLOOD SPECIMEN Ordering Facility: [facility] Address: [facility] [place] [address] Performed By: #### 5 7021-8 #### [facility] CLIA [id number] [address] [place] Nucleated RBC (Bld) [#/Vol] 10*3/uL Normal <0.01 [facility] Comment on above: Order Comment: Speci men Type: BLOOD SPECIMEN Ordering Facility: [facility] Address: [address] [place] [address] Performed By: #### 5 7021-8 #### [facility] CLIA [id number] [address] [place] Nucleated RBC/100 WBC (Bld) [Ratio] 0.0 /100 WBC Normal [facility] Comment on above: Order Comment: Speci men Type: BLOOD SPECIMEN Ordering Facility: [facility] Address: [address] [place] [address] Performed By: #### 5 7021-8 #### [facility] CLIA [id number] [address] [place] Platelet mean volume (Bld) [Entitic vol] 9.4 fL Normal 9.0-12.7 [facility] Comment on above: Order Comment: Speci men Type: BLOOD SPECIMEN Ordering Facility: [facility] Address: [address] [place] [address] Performed By: #### 5 7021-8 #### [facility] CLIA [id number] [address] [place] Platelets (Bld) [#/Vol] 189 10*3/uL Normal 150-400 [facility] Comment on above: Order Comment: Speci men Type: BLOOD SPECIMEN Ordering Facility: [facility] Address: [address] [place] [address] Performed By: #### 5 7021-8 #### [facility] CLIA [id number] [address] [place] RBC (Bld) [#/Vol] 5.65 10*6/uL Normal 4.20-6.00 [facility] Comment on above: Order Comment: Speci men Type: BLOOD SPECIMEN Ordering Facility: [facility] Address: [address] [place] [address] Performed By: #### 5 7021-8 #### [facility] CLIA [id number] [address] WBC (Bld) [#/Vol] 7.25 10*3/uL Normal 3.70-11.00 [facility] Comment on above: Order Comment: Speci men Type: BLOOD SPECIMEN Ordering Facility: [facility] Address: [address] [place] [id number] Performed By: #### 5 7021-8 #### [facility] CLIA [id number] 1 [place] [id number] [facility]SP[facility]-17-[facility]24 CNOVSP Visit (SP) Office (HEMAPOB) SUNITA HARRINGTON ([id number]) 1985 Date Time Provider Department 07/17/24 10:00 AM AUSTEN BLEVINS HEMAPOB During your visit today, we recorded the following information about you: Temperature Pulse Blood pressure Weight 97.7 degrees 100/minute 137/88 111.1 kg Height 1.981 m Austen Blevins MD 07/17/2024 10:23 PM Signed Sunita Harrington 1985 July 17, 2024 HPI: Sunita Harrington is a 38 year old male with history of Hemophilia A, CVA/TIA/ICH, seizures, valvulopathy, polysubstance abuse and left hip osteoarthritis s/p left hip arthroplasty 01/09/2021. Seen by Dr. Lyons in the past. He presents today for follow-up of hemophilia A. Remains on JIVI 6000 units 2-3 times a week. Occasional bleeding in right elbow and ankles. Chronic pain in right elbow. No unintentional weight loss, fever, chest pain, hortness of breath, abdominal pain, change in bowel movements. PAST MEDICAL HISTORY Diagnosis Date Coarctation of aorta (preductal) (postductal) Coarctation of aorta Congenital bicuspid aortic valve 01/02/2015 Monitor: pt will follow outpatient. 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 Based on current guidelines*, a repeat follow-up unenhanced low-dose CT can be obtained in 12 months at clinical discretion. Plan: Pt is aware, follow up w/ local MD. Post-op pain 09/09/2015 History: Pre-op h/o back pain treated w/ oxycodone 20mg q 6hrs prn and MS contin 30mg tid. MRI 09/08 no evidence of discitis or osteomyelitis. Assessment: Verbalizes adequate pain relief on preop regimen. Plan: Continue Tylenol, lidoderm, and preop regimen of Oxycodone 20mg q 6hrs prn and MS Contin 30mg tid Pulmonary HTN ([facility]) Seizure ([facility]) 09/26/2015 History: H/o seizures, on keppra preop Assessment: 09/20/15 post op seizure in ICU. No further events Plan: Continue keppra. Follow up w/ Neurology after discharge. Stroke ([facility]) 01/2015 2 x Brain hemorrhage (07/2014, 11/2014) Thoracic ascending aortic aneurysm ([facility]) Tooth decay 09/26/2015 History: Preop dental evaluation revealed gross decay and chronic abscess of tooth #2 Assessment: Dental recommended extraction of tooth #2. Plan: After clearance from ID, CTS, Hematology, pt underwent extraction #2 on 09/27/15. Continue amicar x 1 more dose today per Hematology. PAST SURGICAL HISTORY Procedure Laterality Date ABD AORTA ANEURYSM REPAIR 12/09/2009 replacement of ascending aorta with #28 Hemashield supracoronary graft. ANKLE SURGERY HX Bilateral x 2-3 each ankle, clean-outs CONGENITAL HEART SURGERY 05/24/1988 repair coarctation aorta CRANIOT TEMPORAL LOBE W/O ELECTROCORTICOGRAPHY Right 06/2014 CRANIOTOMY FOR LOBOTOMY Right 12/2014 Frontal HEART SURGERY HX 2016 re-do CTS HIP SURGERY HX Left 2002 KNEE SURGERY HX Left PICC LINE INSERT/CONSULT 01/08/2015 PICC LINE INSERT/CONSULT 02/05/2015 SHX AORTIC STENT 05/24/2005 aortic stenting secondary to re-stenosis Current Outpatient Medications Medication Sig Dispense Refill FLUoxetine (PROZAC) 40 mg capsule Take 1 capsule by mouth once daily. 90 capsule 3 FLUoxetine (PROZAC) 20 mg capsule Take 1 capsule by mouth once daily. Take with 40 mg dose for total daily dose of 60 mg. 90 capsule 3 levETIRAcetam (KEPPRA) 750 mg tablet 2 tablets by ORAL/FEEDING TUBE route two times a day. 120 tablet 5 JIVI 3,000 (+/-) unit solr Inject 6,230 Units intravenously two times a week. Inject 6230 (+/- 10 %) units every Wednesday and and (#4 prn breakthrough doses) 12 Each 5 No current facility-administered medications for this visit. ALLERGIES Allergen Reactions Asa [Salicylates] Intolerance Contrast Dye Other: See Comments History of contrast induced nephropathy-Per patient is allergic to CT DYE Nsaids (Non-Steroid* Other: See Comments Other reaction(s): Other FAMILY HISTORY Problem Relation Age of Onset Hypertension Father age 48 None Mother age 45 No Ocular Disease Other Seizures No Family History Social History Tobacco Use Smoking status: Never Smokeless tobacco: Never Vaping Use Vaping status: Never Used Substance Use Topics Alcohol use: Not Currently Comment: occasionally, once every 6 months Drug use: Yes Types: Marijuana, Opiates Comment: former uses; Last use of Opiates around 2019 I have confirmed and edited as necessary, the PFSH and ROS obtained by others on 07/20/2023. Review of Systems: All systems reviewed on 07/20/2023 with pe (more content not included)... Normal [facility] Samira 07-17-2024 ALEX Telephone (HEMAPOB) LENSUNITA Medrano ([id number]) 1985 M Date Time Provider Department 07/17/24 AUSTEN BLEVINS During your visit today, we recorded the following information about you: Lidia Gar 07/17/2024 10:44 AM Signed Patient requests parking placard. 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 - FLUoxetine (PROZAC) 20 mg capsule Take 1 capsule by mouth once daily. Take with 40 mg dose for total daily dose of 60 mg. - levETIRAcetam (KEPPRA) 750 mg tablet 2 tablets by ORAL/FEEDING TUBE route two times a day. - JIVI 3,000 (+/-) unit solr Inject 6,230 Units intravenously two times a week. 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 [J81.0] 12/11/2009 07/02/2012 Hyponatremia [E87.1] 12/12/2009 12/16/2009 Nonspecific T wave inversion. 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/17/2014 Elevated blood pressure (not hypertension) [R03*12/31/2014 05/28/2020 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] 01/01/2015 01/03/2021 Vegetation of heart valve [I33.0] 01/02/2015 DVT prophylaxis [LEY9954] 01/02/2015 01/03/2021 Congenital bicuspid aortic valve [Q23.81] 01/02/2015 05/28/2020 Dental caries on smooth surface penetrating int*01/09/2015 Retained dental root [K08.3] 01/09/2015 History of Left acute arterial ischemic stroke,*01/27/2015 Stroke (cerebrum) ([facility]) [I63.9] 01/27/2015 01/03/2021 Seizure ([facility]) [R56.9] 01/27/2015 09/23/2015 Pain [R52] 01/29/2015 05/28/2020 Endocarditis [I38] 01/29/2015 07/02/2017 Preop testing [Z01.818] 01/30/2015 09/23/2015 Depression [F32.A] 02/19/2015 H/O aortic coarctation repair [Z87.74] 09/09/2015 Severe aortic regurgitation [I35.1] 09/09/2015 01/03/2021 Intracranial hemorrhage (HCC) [I62.9] 09/09/2015 06/11/2022 Post-op pain [G89.18] 09/09/2015 05/28/2020 Hypovolemia [E86.1] 09/19/2015 09/24/2015 Essential hypertension [I10] 09/19/2015 01/03/2021 Atelectasis [J98.11] 09/20/2015 05/28/2020 Stress hyperglycemia [R73.9] 09/20/2015 09/23/2015 SUMMARY 09/26/2015 Back pain [M54.9] 09/26/2015 Tooth decay [K02.9] 09/26/2015 05/28/2020 Seizure (HCC) [R56.9] 09/26/2015 05/28/2020 Lung nodule [R91.1] 09/28/2015 05/28/2020 Systolic dysfunction [I51.9] 09/28/2015 Expressive aphasia [R47.01] 07/01/2017 01/03/2021 Partial epilepsy with impairment of consciousne*01/18/2019 Cerebrovascular accident (CVA) due to embolism *01/18/2019 01/03/2021 Recurrent major depression in partial remission*01/18/2019 01/03/2021 Complex partial seizures with consciousness imp*07/31/2019 Secondary osteoarthritis of hip [M16.7] 02/28/2020 Hemophilic arthropathy [D66, M36.2] 06/18/2020 Osteoarthritis of left hip joint due to dysplas*01/03/2021 Pulmonary HTN (HCC) [I27.20] Valvular heart disease [I38] 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 Normal [facility] Fact VIII Act/Nor PPPon 06-25 Coagulation factor VIII activity actual/normal Coag (PPP) [Relative time] 7 % Low 50-173 [facility] Comment on above: Order Comment: Speci men Type: BLOOD SPECIMEN Ordering Facility: [facility] Address: [address] [place] [address] Result Comment: Revi ewed by Cathryn Proctor M.D. Performed By: #### 3 209-4 #### [facility] CLIA [id number] [address] [place] [address] [place] Ferritin SerPl-mCncon 2024 Ferritin [Mass/Vol] 73.4 ng/mL Normal 30.3-565.7 [facility] Comment on above: Order Comment: Speci men Type: BLOOD SPECIMEN Ordering Facility: [facility] Address: [address] [place] [address] Performed By: #### 2 276-4, 27140-0 #### [facility] CLIA [id number] [address] [place] [address] [place] Iron and Iron binding capaci ty panelon 07-17-2024 Iron [Mass/Vol] 120 ug/dL Normal 41-186 [facility] Comment on above: Order Comment: Carlos Enriquei men Type: BLOOD SPECIMEN Ordering Facility: [facility] Address: [address] [place] [address] Performed By: #### 2 276-4, 42338-2 #### [facility] CLIA [id number] 1 [place] [address] [place] Iron binding capacity [Mass/Vol] 278 ug/dL Normal 232-386 [facility] Comment on above: Order Comment: Betty contreras Type: BLOOD SPECIMEN Ordering Facility: [facility] Address: [address] [place] [address] Performed By: #### 2 276-4, 88608-8 #### [facility] CLIA [id number] [address] Iron saturation [Mass fraction] 43.2 % Normal 15.0-57.0 [facility] Comment on above: Order Comment: Carlos Enriquerizwana contreras Type: BLOOD SPECIMEN Ordering Facility: [facility] Address: [address] [place] [address] Performed By: #### 2 276-4, 62102-0 #### [facility] CLIA [id number] [address] 05-05-2024 [facility]ARR[facility] ([id number]) 1985 Date Time Provider Department 05/05/24 [facility] During your visit today, we recorded the following information about you: Vonnie Man APRN.CANCER CENTER DIRECTOR 05/05/2024 4:33 PM Signed Can please let patient know that I received his echo and labs. His labwork looked okay. His bad cholesterol was a little elevated, so please keep an eye on this. His echocardiogram showed that the strength of his heart is a little less than when it was last checked. I think he should return to cardiology for evaluation. The order is placed. Please help schedule. Vonnie Man APRN.Johan Elias LPN 05/05/2024 4:38 PM Signed TC to pt, spoke /c pt mother Deedee, notified of results/provider response. She verbalized understanding. Please assist pt/mother with scheduling Cardiology appt. KEVEN Wells Ida 05/08/2024 3:03 PM Signed 1'st attempt to schedule with Cardiology. LVM to return call Laura Castellano Robyn Meza 05/11/2024 10:04 AM Signed 2nd attmept to schedule cardio. LVM Irma Llanos 05/13/2024 9:10 AM Signed Called patient spoke with mother, offer available appts with Cardiology in July, patients mother mother stated that she will be calling to [facility] to try to get him in sooner with cardiology provider was seen in 2018 Deedee Carver LPN 05/15/2024 11:48 AM Signed Mother called back and [facility] can not see pt till 10-10-23. Asking if this acceptable. Mother concern he need to be seen sooner. Please advise mother. Please call call no MyChart message. KEVEN Chicas Christy, APRN.CANCER CENTER DIRECTOR 05/15/2024 12:31 PM Signed Should be fine to wait. Can also check to see if they have a cancellation list. Johan Garcia LPN 05/15/2024 2:27 PM Signed Pt mother, Deedee, notified. She verbalized understanding. Johan Garcia LPN Allergies As of Date: 05/05/2024 Noted Allergy Reaction ASA (SALICYLATES) 07/09/2005 5 - Intolerance CONTRAST DYE 12/31/2014 14 - Other: See Comments Comments: History of contrast induced nephropathy-Per patient is allergic to CT DYE NSAIDS (NON-STEROIDAL ANTI-INFLAM*12/31/2014 14 - Other: See Comments Comments: Other reaction(s): Other Date Reviewed: 05/01/2024 Reviewed by: Johan Garcia LPN - Fully Assessed Reason for Visit: Results [95] Primary Visit Diagnosis:Coarctation of aorta [Q25.1] Other Visit Diagnoses:Congenital bicuspid aortic valve [Q23.81] Aneurysm of ascending aorta without rupture (HCC) [I71.21] Order(s):CONSULT TO CARDIOLOGY [9004] Order #: [id number]: 1 FUTURE Prescriptions as of 05/15/2024 - FLUoxetine (PROZAC) 40 mg capsule Take 1 capsule by mouth once daily. - FLUoxetine (PROZAC) 20 mg capsule Take 1 capsule by mouth once daily. Take with 40 mg dose for total daily dose of 60 mg. - levETIRAcetam (KEPPRA) 750 mg tablet 2 tablets by ORAL/FEEDING TUBE route two times a day. - JIVI 3,000 (+/-) unit solr Inject 6,230 Units intravenously two times a week. 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 [J81.0] 12/11/2009 07/02/2012 Hyponatremia [E87.1] 12/12/2009 12/16/2009 Nonspecific T wave inversion. 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] 07/17/2014 Acute respiratory failure (HCC) [J96.00] 07/17/2014 07/20/2014 Chronic pain [G89.29] 07/18/2014 МАРИНА (acute kidney injury) (HCC) [N17.9] 07/24/2014 01/03/2021 Hemianopsia [H53.47] 07/24/2014 Primary pauci-immune necrotizing and crescentic*09/17/2014 Elevated blood pressure (not hypertension) [R03*12/31/2014 05/28/2020 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 Normal [facility] CT CHEST WO IVCONon 05-05-20 CT CHEST WO IVCON * * *Final Report* * * DATE OF EXAM: May 05 2024 9:05AM [facility] 0541 - CT CHEST WO IVCON / PROCEDURE REASON: Lung nodules * * * * Physician Interpretation * * * * EXAMINATION: CHEST CT WITHOUT CONTRAST CLINICAL HISTORY: Lung nodule. Technique: Spiral CT acquisition of the chest from the thoracic inlet to the upper abdomen without contrast. MQ: [id number] CT Radiation dose: Integrated Dose-length product (DLP) for this visit = 294 mGy*cm CT Dose Reduction Employed: Automated exposure control(AEC) and iterative recon Comparison: CT chest on 06/11/2022 RESULT: Limitations: None. Lines, tubes, and devices: Status post aortic valve replacement. An endovascular stent graft noted in the proximal descending aorta. Lung parenchyma and airways: The central airways are patent. Noted is interval decrease in size of left upper lobe nodule abutting the pleural surface now measuring 3.5 mm, series 6 image 82, previously 7 mm. There are stable 8 mm nodule and 3 mm nodule in the right upper lobe, series 6 images 26 and 62. No new definite nodules identified. No consolidations. No masses. There are large pericardial fat pads. Pleural space: No pleural effusion. No pleural thickening. Lower neck, lymph nodes, and mediastinum: The imaged thyroid gland is normal. No lymphadenopathy in the supraclavicular, axillary, mediastinal, or hilar regions. Heart, pericardium, and thoracic vessels: The thoracic aorta and main pulmonary artery are normal in caliber. The cardiac chambers are normal in size. No coronary artery atherosclerotic calcifications are noted, although the study is not optimized for coronary assessment. No pericardial effusion or thickening. Bones and soft tissues: There are postoperative changes from median sternotomy. Multilevel vertebral body compression deformities/age indeterminate fractures noted, stable to slightly worsened. There are degenerative changes in the spine, with a few Schmorl's nodes. There is left rib cage deformity. No destructive bone lesion. Chest wall is unremarkable. Upper abdomen: No abnormality in the imaged upper abdomen. Localizer images: No additional findings. IMPRESSION: Interval decrease in size of left upper lobe nodule. Nodules in the right lung have been stable. No definite new nodules seen. Production Control Pegboard Clerk: WILBUR Transcribe Date/Time: May 08 2024 9:56A Dictated by : MERT CHANG MD This examination was interpreted and the report reviewed and electronically signed by: MERT CHANG MD on May 08 2024 10:20AM EST [id number] Normal [facility] ECHOon 05-05-2024 Echocardiography Echocardiography Report: Transthoracic Echo [facility] Date of service: 05/05/2024 10:44:34 AM TRACER Ordering physician: VONNIE MAN Indication: Routine surveillance of prosthetic valve (>3yrs) Technologist: Raquel Berrios [facility] Interpreting physician: Cecil Carroll MD PATIENT: Name: SUNITA HARRINGTON : 1985 Age: 39 years Gender: M History of congenital heart disease. Previous cardiovascular interventions: Aortic valve replacement (09/19/2015) Ascending aneurysm repair (09/19/2015) Primary rhythm: sinus. Secondary rhythm: PVC. Height: 200.70 cm BSA: 2.45 m Weight: 107.96 kg BMI: 26.8 kg/m Heart rate 93 bpm Blood pressure 130/86 mmHg Color Doppler was utilized to interrogate the cardiac valves assessed and spectral Doppler was utilized to determine the flow velocities and pressure gradients reported in this exam. MEASUREMENTS: Value Indexed Normal Max aortic dimension 3.4 cm Ao < 3.8 Left atrial volume 125 ml (biplane A-L) 51 ml/m Jean Marie <= 34 LV ID (diastole) 6.6 cm (2D) 2.71 cm/m LV ID (systole) 4.9 cm (2D) 2.00 cm/m IVS, leaflet tips 1.1 cm (2D) Posterior wall thickness 1.1 cm (2D) Left ventricular mass 340 g (2D) 139 g/m LV stroke volume 128 ml (2D 4-ch.) LV end diastolic volume 286 ml (2D 4-ch.) 116.7 ml/m 34<=EDVi<75 LV end systolic volume 158 ml (2D 4-ch.) 64.3 ml/m Ejection Fraction 45 % (2D 4-ch.) EF > 52 FINDINGS: LEFT VENTRICLE The left ventricle is severely dilated. Left ventricular systolic function is mildly decreased. Indeterminate left ventricular diastolic function. Mitral annular lateral E/e': 16.4. Mitral annular septal E/e': 21.1. Wall Motion: The entire anterior wall, entire lateral wall, entire septum, entire apex, and entire inferior wall are mildly hypokinetic. RIGHT VENTRICLE The right ventricle is normal in size. Right ventricular systolic function is normal. RV systolic tissue Doppler velocity is 12.0 cm/s. Tricuspid annular displacement is 1.8 cm. Estimated right ventricular systolic pressure is 35 mmHg consistent with mild pulmonary hypertension. Estimated right atrial pressure is 3 mmHg (although IVC not seen). LEFT ATRIUM The left atrial cavity is severely dilated. RIGHT ATRIUM The right atrial cavity is dilated. Inferior Vena Cava: The inferior vena cava appears dilated measuring 2.3 cm. MITRAL VALVE There is moderate (2+) mitral valve regurgitation. There is mild thickening. Regurgitant orifice area (PISA) is 0.15 cm . The pressure half time is 39 msec. The peak mitral E/A ratio is 2.18. The average mitral E/e' ratio is 18.8. The mitral flow deceleration time is 135 msec. TRICUSPID VALVE The tricuspid valve leaflets are structurally normal. There is mild (1+) tricuspid valve regurgitation. AORTIC VALVE Ree Supra-Annular prosthetic valve size #27. There is no aortic valve regurgitation. The peak gradient is 42 mmHg (peak velocity = 324.1 cm/s). The mean gradient is 26 mmHg. The LVOT mean velocity is 46.3 cm/s. The aortic VTI is 79.1 cm. The mean velocity in the aortic valve is 243.0 cm/s. The dimensionless valve index is 0.18. PULMONIC VALVE The pulmonic valve cusps are structurally normal. There is no pulmonic valve regurgitation. AORTA The visualized aorta is normal in size. Measurements - Mid ascending aorta 3.4 cm. Distal ascending aorta 3.1 cm. Systolic velocity through the coarctation is 263.0 cm/s. Peak gradient is 28 mmHg. INTERVENTRICULAR SEPTUM There is abnormal motion of the interventricular septum secondary to prior cardiac surgery. PERICARDIUM There is no pericardial effusion. CONCLUSIONS: - Exam indication: Routine surveillance of prosthetic valve (>3yrs) - The left ventricle is severely dilated. Left ventricular systolic function is mildly decreased. EF = 45 5% (2D 4-ch.) Indeterminate left ventricular diastolic function. - The right ventricle is normal in size. Right ventricular systolic function is normal. - The left atrial cavity is severely dilated. - The right atrial cavity is dilated. - There is moderate (2+) mitral valve regurgitation. Regurgitant orifice area (PISA) is 0.15 cm . - Ree Supra-Annular prosthetic aortic valve (size #27). There is no aortic valve regurgitation. The peak gradient is 42 mmHg, the mean gradient is 26 mmHg and the dimensionless valve index is 0.18. Prior pk/mn gradients were 45/27 mmHg. - Exam was compared with the prior CC echocardiographic exam performed on 11/08/2020. Left ventricular systolic function has decreased and the gradient across the aortic coarctation has decreased. * * * Final * * * [employer] Image : [id number] [id number] Normal [facility] CNOVon 05-01-2024 CNOV Office Visit (FAMPWS ) SUNITA HARRINGTON ([id number]) 1985 M Date Time Provider Department 05/01/24 2:20 PM VONNIE MAN During your visit today, we recorded the following information about you: Pulse Respiration Blood pressure Weight 91/minute 16/minute 128/86 108 kg Vonnie Man, SHIRA.[facility] DIRECTOR 05/01/2024 5:15 PM Signed This is a 39 year old male who presents today with: Patient presents with: Establish Care: Transfer of care from Aly Jacob HISTORY OF PRESENT ILLNESS: Sunita Harrington is a 39 year old male. Patient presents with: Establish Care: Transfer of care from Aly Jacob Pt presents today to establish. Previous patient of Anu. No problems/concerns. Mood: Taking prozac -- 60 mg daily. Refers mood has been half/half. Sleep has been okay. Appetite has been okay -- usually drinks milk and has peanut butter sandwiches. No SI/HI. Seizures: Last seizure was almost two years ago. Reports compliance with medications. Hemophilia Follows with heme onc. Refers that he takes his injections. Denies any abnormal bleeding. Due for annual f/u and labs in June. Lung nodule. Noted in 2022. Did not complete surveillance as recommended. Congenital bicuspid aortic valve. Hx of - Aortic coarctation repair in 1988 - Aortic stenting secondary to re-stenosis in 2005 - Ascending thoracic aortic aneurysm repair with supra-coronary graft in 2009 (Dr Langley) - AVR AND Aortic root debridement and replacement with a composite graft (#27 CE pericardial valve and #32 Hemashield graft) on 09/19/15 secondary to [place] bicuspid aortic valve endocarditis. His history is also significant for: - Hemophilia with R occipital ICH/IVH in 06/2014 s/p R temporal craniotomy for evacuation; R frontal ICH/IVH 12/31/14 s/p R frontal craniotomy, hematoma evacuation 12/31/14; cerebral angiogram (01/02/15) - Fever and embolic L MCA (M1) territory stroke in early 01/2015 No CP/palpitations/SOB/swe lling/orthopnea/dizzine ss. He has not had follow-up with cardiology since 2020. Due for echo. REVIEW OF SYSTEMS GENERAL: No weight loss, malaise or fevers/chills HEENT: Negative for frequent or significant headaches, No changes in hearing or vision. NECK: Negative for lumps, goiter, pain and significant neck swelling RESPIRATORY: Negative for cough, hemoptysis, wheezing, dyspnea or shortness of breath CARDIOVASCULAR: Negative for chest pain, leg swelling, orthopnea, or palpitations. Gets some dependent ankle swelling that resolves w/ propping. GI: No nausea, vomiting, or diarrhea/constipation. No hematochezia/melena. No heartburn or reflux symptoms. : No history of dysuria, frequency or incontinence MUSCULOSKELETAL: Negative for joint pain or swelling. SKIN: Negative for lesions, rash, and itching ENDOCRINE: Negative for cold or heat intolerance, polyuria, polydipsia and goiter NEURO: No history of headaches, syncope, paralysis, or tremors PAST MEDICAL HISTORY: PAST MEDICAL HISTORY Diagnosis Date Coarctation of aorta (preductal) (postductal) Coarctation of aorta Congenital bicuspid aortic valve 01/02/2015 Monitor: pt will follow outpatient. 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 Based on current guidelines*, a repeat follow-up unenhanced low-dose CT can be obtained in 12 months at clinical discretion. Plan: Pt is aware, follow up w/ local MD. Post-op pain 09/09/2015 History: Pre-op h/o back pain treated w/ oxycodone 20mg q 6hrs prn and MS contin 30mg tid. MRI 09/08 no evidence of discitis or osteomyelitis. Assessment: Verbalizes adequate pain relief on preop regimen. Plan: Continue Tylenol, lidoderm, and preop regimen of Oxycodone 20mg q 6hrs prn and MS Contin 30mg tid Pulmonary HTN (HCC) Seizure (HCC) 09/26/2015 History: H/o seizures, on keppra preop Assessment: 09/20/15 post op seizure in ICU. No further events Plan: Continue keppra. Follow up w/ Neurology after discharge. Stroke (HCC) 01/2015 2 x Brain hemorrhage (07/2014, 11/2014) Thoracic ascending aortic aneurysm (HCC) Tooth decay 09/26/2015 History: Preop dental evaluation revealed gross decay and chronic abscess of tooth #2 Assessment: Dental recommended extraction of tooth #2. Plan: After clearance from ID, CTS, Hematology, pt underwent extraction #2 on 09/27/15. Continue amicar x 1 more dose today per Hematology. PAST SURGICAL HISTORY Procedure Laterality Date ABD AORTA ANEURYSM REPAIR 12/09/2009 replace (more content not included)... Normal [facility] Comprehensive metabolic 2000 panelon 05-01-2024 Albumin [Mass/Vol] 4.5 g/dL Normal 3.9-4.9 [facility] Comment on above: Order Comment: Speci men Type: BLOOD SPECIMENOrdering Facility: [facility] Address: [address] [place] [address] Performed By: #### 2 4323-8, LIPNF ####[facility] LABCLIA [id number] [place] [address] [place] ALP [Catalytic activity/Vol] 78 U/L Normal 38-113 [facility] Comment on above: Order Comment: Speci men Type: BLOOD SPECIMENOrdering Facility: [facility] Address: [address] [place] [address] Performed By: #### 2 4323-8, LIPNF ####[facility] LABCLIA [id number] [place] [address] [place] ALT [Catalytic activity/Vol] 20 U/L Normal 10-54 [facility] Comment on above: Order Comment: Speci men Type: BLOOD SPECIMENOrdering Facility: [facility] Address: [address] [place] [address] Performed By: #### 2 4323-8, LIPNF ####[facility] LABCLIA [id number] [place] [address] [place] Anion gap [Moles/Vol] 10 mmol/L Normal 8-15 [facility] Comment on above: Order Comment: Speci men Type: BLOOD SPECIMENOrdering Facility: [facility] Address: [address] [place] [address] Performed By: #### 2 4323-8, LIPNF ####[facility] LABCLIA [id number] [place] [address] [place] AST [Catalytic activity/Vol] 18 U/L Normal 14-40 [facility] Comment on above: Order Comment: Speci men Type: BLOOD SPECIMENOrdering Facility: [facility] Address: [address] [place] [address] Performed By: #### 2 4323-8, LIPNF ####[facility] LABCLIA [id number] [place] [address] [place] Bilirubin [Mass/Vol] 0.7 mg/dL Normal 0.2-1.3 [facility] Comment on above: Order Comment: Speci men Type: BLOOD SPECIMENOrdering Facility: [facility] Address: [address] [place] [address] Performed By: #### 2 4323-8, LIPNF ####[facility] LABCLIA [id number] [place] [address] [place] Calcium [Mass/Vol] 9.9 mg/dL Normal 8.5-10.2 [facility] Comment on above: Order Comment: Speci men Type: BLOOD SPECIMENOrdering Facility: [facility] Address: [address] [place] [address] Performed By: #### 2 4323-8, LIPNF ####[facility] LABCLIA [id number] [place] [address] [place] Chloride [Moles/Vol] 99 mmol/L Normal 98-107 [facility] Comment on above: Order Comment: Speci men Type: BLOOD SPECIMENOrdering Facility: [facility] Address: [address] [place] [address] Performed By: #### 2 4323-8, LIPNF ####[facility] LABCLIA [id number] [place] [address] [place] CO2 [Moles/Vol] 30 mmol/L Normal 22-30 [facility] Comment on above: Order Comment: Speci men Type: BLOOD SPECIMENOrdering Facility: [facility] Address: [address] [place] [address] Performed By: #### 2 4323-8, LIPNF ####[facility] LABCLIA [id number] [place] [address] [place] Creatinine [Mass/Vol] 1.07 mg/dL Normal 0.73-1.22 [facility] Comment on above: Order Comment: Speci men Type: BLOOD SPECIMENOrdering Facility: [facility] Address: [address] [place] [address] Performed By: #### 2 4323-8, LIPNF ####[facility] LABCLIA [id number] [place] [address] [place] Creatinine and Glomerular filtration rate.predicted panel (S/P/Bld) 92 mL/min/1.73m??? Normal >=60 [facility] Comment on above: Order Comment: Speci men Type: BLOOD SPECIMENOrdering Facility: [facility] Address: [address] [place] [address] Result Comment: Agatha mated Glomerular Filtration Rate (eGFR) is calculated using the 2020 CKD-EPI creatinine equation. This equation utilizes serum creatinine, sex, and age as parameters. The creatinine assay has traceable calibration to isotope dilution-mass spectrometry. Refer to KDIGO guidelines for clinical interpretation. In patients with unstable renal function, e.g. those with acute kidney injury, the eGFR may not accurately reflect actual GFR. Performed By: #### 2 4323-8, LIPNF ####[facility] LABCLIA [id number] [place] [address] [place] Glucose [Mass/Vol] 95 mg/dL Normal 74-99 [facility] Comment on above: Order Comment: Speci men Type: BLOOD SPECIMENOrdering Facility: [facility] Address: [address] [place] [address] Result Comment: The [place] Diabetes Association (ADA) provides guidance for cutoff values for fasting glucose and random glucose. The ADA defines fasting as no caloric intake for at least 8 hours. Fasting plasma glucose results between 100 to 125 mg/dL indicate increased risk for diabetes (prediabetes). Fasting plasma glucose results greater than or equal to 126 mg/dL meet the criteria for diagnosis of diabetes. In the absence of unequivocal hyperglycemia, results should be confirmed by repeat testing. In a patient with classic symptoms of hyperglycemia or hyperglycemic crisis, random plasma glucose results greater than or equal to 200 mg/dL meet the criteria for diagnosis of diabetes. Reference: Standards of Medical Care in Diabetes 2016, [place] Diabetes Association. Diabetes Care. 2016.39(Suppl 1). Performed By: #### 2 4323-8, LIPNF ####[facility] LABIA [id number] [place] [address] [place] Potassium [Moles/Vol] 5.2 mmol/L High 3.7-5.1 [facility] Comment on above: Order Comment: Speci men Type: BLOOD SPECIMENOrdering Facility: [facility] Address: [address] [place] [address] Performed By: #### 2 4323-8, LIPNF ####[facility] LABIA [id number] [place] [address] [place] Protein [Mass/Vol] 7.6 g/dL Normal 6.3-8.0 [facility] Comment on above: Order Comment: Speci men Type: BLOOD SPECIMENOrdering Facility: [facility] Address: [address] [place] [address] Performed By: #### 2 4323-8, LIPNF ####[facility] LABCLIA [id number] [place] [address] [place] Sodium [Moles/Vol] 139 mmol/L Normal 136-144 [facility] Comment on above: Order Comment: Speci men Type: BLOOD SPECIMENOrdering Facility: [facility] Address: [address] [place] [address] Performed By: #### 2 4323-8, LIPNF ####[facility] LABCLIA [id number] [place] [address] [place] Urea nitrogen [Mass/Vol] 21 mg/dL Normal 9-24 [facility] Comment on above: Order Comment: Speci men Type: BLOOD SPECIMENOrdering Facility: [facility] Address: [address] [place] [address] Performed By: #### 2 4323-8, LIPNF ####[facility] LABCLIA [id number] [place] [address] [place] LIPID PANEL, NONFASTINGon Cholesterol [Mass/Vol] 219 mg/dL High <200 [facility] Comment on above: Order Comment: Speci men Type: BLOOD SPECIMENOrdering Facility: [facility] Address: [address] [place] [address] Result Comment: <200 mg/dL, Desirable 200-239 mg/dL, Borderline high >239 mg/dL, High Performed By: #### 2 4323-8, LIPNF ####[facility] LABCLIA [id number] [place] [address] [place] HDL CHOLESTEROL, NF 51 mg/dL Normal >39 [facility] Comment on above: Order Comment: Speci men Type: BLOOD SPECIMENOrdering Facility: [facility] Address: [address] [place] [address] Result Comment: 40-5 9 mg/dL, Acceptable >59 mg/dL, High: Negative risk factor for coronary heart disease <40 mg/dL, Low: Positive risk factor for coronary heart disease Performed By: #### 2 4323-8, LIPNF ####[facility] LABCLIA [id number] [place] [address] [place] LDL CHOLESTEROL, NF 155 mg/dL High <100 [facility] Comment on above: Order Comment: Speci men Type: BLOOD SPECIMENOrdering Facility: [facility] Address: [address] [place] [address] Result Comment: <100 mg/dL, Optimal 100-129 mg/dL, Near optimal/above optimal 130-159 mg/dL, Borderline high 160-189 mg/dL, High >189 mg/dL, Very high Secondary prevention optimal LDL Cholesterol levels are recommended to be < 70 mg/dL Performed By: #### 2 4323-8, LIPNF ####[facility] LABCLIA [id number] [place] [address] [place] LDL/HDL RATIO, NF 3.04 mg/dL High <2.54 [facility] Comment on above: Order Comment: Speci men Type: BLOOD SPECIMENOrdering Facility: [facility] Address: [address] [place] [address] Result Comment: Refe estiven: 1. National Cholesterol Education Program ATP III Guideline At-A-Glance Quick Desk Reference: National Heart, Lung, and Blood [place]. National Institutes of Health. 2001: NIH Publication No. 01-3305. 2. An International Atherosclerosis Society position paper: global recommendations for the management of dyslipidemia: executive summary, Atherosclerosis. 2014: 232(2):410-413. Performed By: #### 2 4323-8, LIPNF ####[facility] LABCLIA [id number] [place] [address] [place] NON HDL CHOL, NF 168 mg/dL High <130 [facility] Comment on above: Order Comment: Speci men Type: BLOOD SPECIMENOrdering Facility: [facility] Address: [address] [place] [address] Result Comment: <130 mg/dL, Optimal 130-159 mg/dL, Near optimal/above optimal 160-189 mg/dL, Borderline high 190-219 mg/dL, High >219 mg/dL, Very high Secondary prevention optimal non HDL Cholesterol levels are recommended to be <100 mg/dL Performed By: #### 2 4323-8, LIPNF ####[facility] LABCLIA [id number] [place] [address] [place] T CHOL/HDL RATIO NF 4.29 mg/dL Normal <5.10 [facility] Comment on above: Order Comment: Speci men Type: BLOOD SPECIMENOrdering Facility: [facility] Address: [address] [place] [address] Performed By: #### 2 4323-8, LIPNF ####[facility] LABCLIA [id number] [place] [address] [place] TRIGLYCERIDES, NF 64 mg/dL Normal <150 [facility] Comment on above: Order Comment: Speci men Type: BLOOD SPECIMENOrdering Facility: [facility] Address: [address] [place] [address] Result Comment: <150 mg/dL, Normal 150-199 mg/dL, Borderline high 200-499 mg/dL, High >499 mg/dL, Very high Performed By: #### 2 4323-8, LIPNF ####[facility] LABCLIA [id number] [place] [address] [place] VLDL CHOLESTEROL, NF 13 mg/dL Normal <30 [facility] Comment on above: Order Comment: Speci men Type: BLOOD SPECIMENOrdering Facility: [facility] Address: [address] [place] [address] Performed By: #### 2 4323-8, LIPNF ####[facility] LABCLIA [id number] [place] [address] [place] lev[facility]IRAcetam [facility] 07-02-2023 levETIRAcetam [Mass/Vol] 22.3 ug/mL Normal 12.0-46.0 [facility] Comment on above: Order Comment: Speci men Type: BLOOD SPECIMENOrdering Facility: [facility] Address: [address] [place] [address] Result Comment: This test is not suitable for patients receiving treatment with the drug brivaracetam (Briviact). The drug causes an interference that may lead to falsely elevated levetiracetam results. Reference ranges and high/low indicator flags are provided as general guidelines only. The treating physician must determine appropriate target levels/dosing based on the specific clinical situation. This test was developed, and its performance characteristics determined by the [facility] Department of Pathology and Laboratory Medicine. It has not been cleared or approved by the FDA. The [facility] Department of Pathology and Laboratory Medicine is regulated under CLIA as qualified to perform high-complexity testing. This test is used for clinical purposes. It should not be regarded as investigational or for research. Performed By: #### 3 0471-7 ####[facility] LABCLIA [id number] [facility] [id number] [address] [place] CBC W Auto Differential pane l (Bld)on 07-20-2023 Basophils (Bld) [#/Vol] <0.11 k/uL [facility] Basophils/100 WBC (Bld) 0.4 % C [facility] Differential cell count method Nom (Bld) Auto [facility] Eosinophils (Bld) [#/Vol] 0.06 10*3/uL <0.46 k/uL [facility] Eosinophils/100 WBC (Bld) 1.1 % [facility] Erythrocyte distribution width (RBC) [Ratio] 15.7 % High 11.5 - 15.0 % [facility] Hematocrit (Bld) [Volume fraction] 45.5 % 39.0 - 51.0 % [facility] Hemoglobin (Bld) [Mass/Vol] 13.9 g/dL 13.0 - 17.0 g/dL [facility] Immature granulocytes (Bld) [#/Vol] <0.10 k/uL [facility] Immature granulocytes/100 WBC (Bld) 0.4 % [facility] Lymphocytes (Bld) [#/Vol] 1.22 10*3/uL 1.00 - 4.00 k/uL [facility] Lymphocytes/100 WBC (Bld) 22.9 % [facility] MCH (RBC) [Entitic mass] 25.5 pg Low 26.0 - 34.0 pg [facility] MCHC (RBC) [Mass/Vol] 30.5 g/dL 30.5 - 36.0 g/dL [facility] MCV (RBC) [Entitic vol] 83.3 fL 80.0 - 100.0 fL [facility] Monocytes (Bld) [#/Vol] 0.37 10*3/uL <0.87 k/uL [facility] Monocytes/100 WBC (Bld) 7.0 % [facility] Neutrophils (Bld[facility] [#/Vol] 3.63 10*3/uL 1.45 - 7.50 k/uL [facility] Neutrophils/100 WBC (Bld) 68.2 % [facility] Nucleated RBC (Bld) [#/Vol] <0.01 k/uL [facility] Nucleated RBC/100 WBC (Bld) [Ratio] 0.0 /100 WBC [facility] Platelet mean volume (Bld) [Entitic vol] 9.8 fL 9.0 - 12.7 fL [facility] Platelets (Bld) [#/Vol] 206 10*3/uL 150 - 400 k/uL [facility] RBC (Bld) [#/Vol] 5.46 10*6/uL 4.20 - 6.0 0 m/uL [facility] WBC (Bld) [#/Vol] 5.32 10*3/uL 3.70 - 11. 00 k/uL [facility] FERRITIN BLDon 07-20-2023 Ferritin [Mass/Vol] 20.4 ng/mL Low 30.3 - 5 65.7 ng/mL [facility] Iron and Iron binding capaci ty panelon 07-20-2023 Iron [Mass/Vol] 29 ug/dL Low 41 - 186 ug/[facility] Iron binding capacity [Mass/Vol] 303 ug/dL 232 - 386 ug/dL [facility] Iron saturation [Mass fraction] 9.6 % Low 15.0 - 57.0 % [facility] LEVETIRACETAMon 07-18-2022 levETIRAcetam [Mass/Vol] 18.0 ug/mL 12.0 - 46.0 ug/mL [facility] Absolute lymphocyte countOrd ered By: Anish Villeda on 06-27-2022 Lymphocytes Auto (Unsp spec) [#/Vol] 3.94 10*3/uL 0.83-4.51 [facility] Basophil percentageOrdered B y: Anish Villeda on 06-27-2022 Basophils/100 WBC (Bld) 0.4 % 0-1 [facility] Chloride [Moles/Vol] 107 mmol/L 98-107 [facility] Eosinophils/100 WBC (Bld) 1.1 % 0-5 [facility] Glucose [Mass/Vol] 176 mg/dL 74-106 [facility] Comment on above: Fasting Glucose resu lt greater than or equal to 126 mg/dL suggests DIABETES MELLITUS per A.D.A. criteria. Neutrophils (Bld) [#/Vol] 7.7 10*3/uL 2.0-7.7 [facility] Neutrophils/100 WBC (Bld) 60.7 % 47-70 [facility] Potassium [Moles/Vol] 4.7 mmol/L 3.5-5.1 [facility] Sodium [Moles/Vol] 140 mmol/L 136-145 [facility] WBC (Bld) [#/Vol] 12.7 10*3/uL 4.4-11.0 [facility] Blood erythrocytes count (nu mber/volume)Ordered By: Anish Villeda on 06-27-2022 RBC (Bld) [#/Vol] 3.95 10*6/uL 4.6-6.2 [facility] Blood hemoglobin measurement (mass/volume)Ordered By: Anish Villeda on 06-27-2022 Hemoglobin (Bld) [Mass/Vol] 11.1 g/dL 13.0-16.5 [facility] Blood lymphocytes/100 leukoc ytesOrdered By: Anish Villeda on 06-27-2022 Lymphocytes/100 WBC (Bld) 31.1 % 19-41 [facility] Blood monocytes/100 leukocyt esOrdered By: Anish Villeda on 06-27-2022 Monocytes/100 WBC (Bld) 6.3 % 0-10 [facility] Blood platelet mean volumeOr dered By: Anish Villeda on 06-27-2022 Platelet mean volume (Bld) [Entitic vol] 9.2 fL 6.2-12.0 [facility] Determination of erythrocyte mean corpuscular volume (MCV)Ordered By: Anish Villeda on 06-27-2022 MCV (RBC) [Entitic vol] 90.1 fL 80-94 [facility] Glucose Glucometer (BldC) [M ass/Vol]Ordered By: Anish Villeda on 06-27-2022 Glucose [Mass/Vol] 136 mg/dL 74-106 [facility] Comment on above: MANAGEMENT OF PATIEN T CARE PER NURSING PROTOCOL Hematocrit Auto (Bld) [Volum e fraction]Ordered By: Anish Villeda on 06-27-2022 Hematocrit (Bld) [Volume fraction] 35.6 % 40-54 [facility] Laboratory - Chemistry and C hemistry - challengeOrdered By: Anish Villeda on 06-27-2022 CO2 [Moles/Vol] 23.0 mmol/L 21.0-32.0 [facility] Magnesium [Mass/Vol] 2.0 mg/dL 1.6-2.6 [facility] Urea nitrogen/Creatinine [Mass ratio] 26.9 mg/mg 10-20 [facility] Laboratory - Hematology and Cell countsOrdered By: Anish Villeda on 06-27-2022 Erythrocyte distribution width (RBC) [Entitic vol] 45.8 fL 35.1-43.9 [facility] Erythrocyte distribution width (RBC) [Ratio] 14.0 % 11.6-14.6 [facility] Immature granulocytes/100 WBC (Bld) 0.400 % 0.0-0.9 [facility] Comment on above: IG% - Immature Granu locytes (promyelocytes, myelocytes and metamyelocytes) > 1% indicates that a LEFT SHIFT is Present. MCH (RBC) [Entitic mass] 28.1 pg 27.0-32.0 [facility] Nucleated RBC/100 WBC (Bld) [Ratio] 0 % 0-5 [facility] MCHC Auto (RBC) [Mass/Vol]Or dered By: Anish Villeda on 06-27-2022 MCHC (RBC) [Mass/Vol] 31.2 g/dL 32-36 [facility] No Panel InformationOrdered By: Anish Villeda on 06-27-2022 Estimated Creatinine Clearance Calc 114.83 ml/min [facility] Estimated GFR (MDRD) Amer 89 mL/min >60 [facility] Comment on above: GFR Calc Estimated GFR (MDRD) Non-Af Amer 74 mL/min >60 [facility] Comment on above: Non- GFR Calc Platelets bldOrdered By: Tj Villeda on 06-27-2022 Platelets (Bld) [#/Vol] 401 10*3/uL 150-450 [facility] Serum or plasma calcium ronni urement (mass/volume)Ordered By: Anish Villeda on 06-27-2022 Calcium [Mass/Vol] 8.8 mg/dL 8.5-10.1 [facility] Serum or plasma creatinine m easurement (mass/volume)Ordered By: Anish Villeda on 06-27-2022 Creatinine [Mass/Vol] 1.19 mg/dL 0.70-1.30 [facility] Comment on above: The validity of the calculated GFR & GFRAA in patients over 70 years has not been determined. Clinical correlation is essential. Serum or plasma urea nitroge n measurement (mass/volume)Ordered By: Anish Villeda on 06-27-2022 Urea nitrogen [Mass/Vol] 32 mg/dL 7-18 [facility] Thin prep Papanicolaou smear with manual screeningOrdered By: Anish Villeda on 06-27-2022 Thin prep Papanicolaou smear with manual screening 10 5-15 [facility] CBC W Auto Differential pane l (Bld)on 04-27-2022 Basophils (Bld) [#/Vol] <0.11 k/uL [facility] Basophils/100 WBC (Bld) 0.3 % [facility] Differential cell count method Nom (Bld) Auto [facility] Eosinophils (Bld) [#/Vol] 0.07 10*3/uL <0.46 k/uL [facility] Eosinophils/100 WBC (Bld) 0.9 % [facility] Erythrocyte distribution width (RBC) [Ratio] 12.8 % 11.5 - 15.0 % [facility] Hematocrit (Bld) [Volume fraction] 44.1 % 39.0 - 51.0 % [facility] Hemoglobin (Bld) [Mass/Vol] 15.3 g/dL 13.0 - 17.0 g/dL [facility] Immature granulocytes (Bld) [#/Vol] <0.10 k/uL [facility] Immature granulocytes/100 WBC (Bld) 0.3 % [facility] Lymphocytes (Bld) [#/Vol] 2.13 10*3/uL 1.00 - 4.00 k/uL [facility] Lymphocytes/100 WBC (Bld) 28.1 % [facility] MCH (RBC) [Entitic mass] 28.4 pg 26.0 - 34.0 pg [facility] MCHC (RBC) [Mass/Vol] 34.7 g/dL 30.5 - 36.0 g/dL [facility] MCV (RBC) [Entitic vol] 82.0 fL 80.0 - 100.0 fL [facility] Monocytes (Bld) [#/Vol] 0.56 10*3/uL <0.87 k/uL [facility] Monocytes/100 WBC (Bld) 7.4 % [facility] Neutrophils (Bld) [#/Vol] 4.78 10*3/uL 1.45 - 7.50 k/uL [facility] Neutrophils/100 WBC (Bld) 63.0 % [facility] Nucleated RBC (Bld) [#/Vol] <0.01 k/uL [facility] Nucleated RBC/100 WBC (Bld) [Ratio] 0.0 /100 WBC [facility] Platelet mean volume (Bld) [Entitic vol] 9.1 fL 9.0 - 12.7 fL [facility] Platelets (Bld) [#/Vol] 217 10*3/uL 150 - 400 k/uL [facility] RBC (Bld) [#/Vol] 5.38 10*6/uL 4.20 - 6.0 0 m/uL [facility] WBC (Bld) [#/Vol] 7.58 10*3/uL 3.70 - 11. 00 k/uL [facility] FERRITIN BLDon 04-27-2022 Ferritin [Mass/Vol] 130.7 ng/mL 30.3 - 5 65.7 ng/mL [facility] Iron and Iron binding capaci ty panelon 04-27-2022 Iron [Mass/Vol] 53 ug/dL 41 - 186 ug/dL [facility] Iron binding capacity [Mass/Vol] 255 ug/dL 232 - 386 ug/dL [facility] Iron saturation [Mass fraction] 20.8 % 15.0 - 57.0 % [facility] MRI ELBOW WO IVCON RTon 01-22 MRI ELBOW WO IVCON RT * * *Final Report* * * DATE OF EXAM: Feb 09 2022 4:20PM [facility] [id number] - MRI ELBOW WO IVCON RT / PROCEDURE REASON: * * * * Physician Interpretation * * * * RESULT: EXAMINATION: MRI ELBOW WO IVCON RT TECHNIQUE: Noncontrast multiplanar MRI of the right elbow was performed utilizing T1-weighted and fluid sensitive sequences. 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 COMPARISON: Right elbow radiographs dated 08/25/2021. RESULT: There is a moderate elbow joint effusion with synovial thickening. No bicipital radial bursitis or olecranon bursitis. Osseous alignment is preserved. There is advanced elbow arthropathy with severe radiocapitellar and ulnotrochlear joint space narrowing. There is extensive reciprocal chondral denudation throughout the radiocapitellar joint. There is diffuse high-grade ulnotrochlear chondral thinning with associated subchondral cyst/pseudotumor formation in the trochlea and trochleocapitellar ridge. There is bulky marginal osteophyte formation. A 12-mm body is noted along the posterolateral aspect of the joint (series 7, image 6). There is no muscle atrophy or edema. The biceps, brachialis, and triceps insertions are intact. The common flexor and extensor tendon origins are intact. The ulnar collateral, radial collateral, and lateral ulnar collateral ligaments are intact. The contents of the tibial tunnel including the ulnar nerve are within normal limits. The visualized radial, posterior interosseous, and median nerves are normal in course and caliber. 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 There is subchondral cyst or pseudotumor formation in the trochlea and trochleocapitellar ridge. Transcribed Using Voice Recognition Transcribe Date/Time: Feb 10 2022 9:01A Dictated by: BLAIRE MARTIN MD This examination was interpreted and the report reviewed and electronically signed by: BLAIRE MARTIN MD on Feb 10 2022 9:18AM EST [id number] [facility] ALLIED HEALTHon 01-19-2021 ALLIED HEALTH HNO ID: [id number] Author: JERRY Villavicencio Service: Radiology Author Type: Clinical Logistics Team Leader Type: Allied Health Filed: 01/19/2021 2:13 PM Note Text: Radiology Service Progress Note PATIENT NAME: Sunita Harrington DATE OF SERVICE: January 19, 2021 TIME: 2:13 PM PATIENT IDENTITY VERIFICATION COMPLETED USING TWO (2) IDENTIFIERS: Name and Date of confirmed by patient verbally. FALL SCREENING: Has the patient had 2 falls in the last year or 1 fall with injury or currently using an Ambulatory Assistive Device (Walker, Cane, Wheelchair, Crutches, etc.)? Emergency Room Patient: Screened in ED PATIENT GENDER DATA: Male PATIENT RELEVANT IMPLANT DATA REVIEWED: Not Applicable RADIOLOGY DEPARTMENT: General X-ray: Exam(s) Completed: Pelvis X-Ray: Pelvis with Hip Left PERIPHERAL IV DATA: Not applicable SIGNED BY: JERRY Villavicencio January 19, 2021 2:13 PM [facility] APTTon 01-19-2021 aPTT Coag (Bld) [Time] 63.2 s High 23.0-32.4 [facility] Comment on above: Result Comment: Unfr actionated Heparin Therapeutic Ranges: Standard Heparin Nomogram: 53 to 78 seconds (anti-Xa level of 0.3 to 0.7 U/ml) Low Dose/ACS Nomogram: 49 to 67 seconds (anti-Xa level of 0.2 to 0.5 U/ml) Stroke Treatment Nomogram: 49 to 67 seconds (anti-Xa level of 0.2 to 0.5 U/ml) Note: The APTT therapeutic range has been determined for the current lot of laboratory APTT reagent in use throughout the [facility]. Performed By: #### C BCDIF, PT, PTT, CMP, MG1 #### [facility] [address] [place] [address] CBC and Differentialon 01-19 Abs Baso <0.03 Normal <0.11 [facility] Comment on above: Performed By: #### C BCDIF, PT, PTT, CMP, MG1 #### [facility] [address] Abs [place] 0.65 k/uL Normal <0.87 [facility] Comment on above: Performed By: #### C BCDIF, PT, PTT, CMP, MG1 #### [facility] [address] [place] [address] Abs Neut 7.80 k/uL High 1.45-7.50 [facility] Comment on above: Performed By: #### C BCDIF, PT, PTT, CMP, MG1 #### [facility] [address] [place] [address] Absolute nRBC 0.02 k/uL High <0.01 [facility] Comment on above: Performed By: #### C BCDIF, PT, PTT, CMP, MG1 #### [facility] [address] [place] [address] Basophils/100 WBC (Bld) 0.2 % Normal [facility] Comment on above: Performed By: #### C BCDIF, PT, PTT, CMP, MG1 #### [facility] [address] [place] [address] DTYPE Auto Diff Normal [facility] Comment on above: Performed By: #### C BCDIF, PT, PTT, CMP, MG1 #### [facility] [address] [place] [address] Eosinophils (Bld) [#/Vol] 0.09 10*3/uL Normal <0.46 [facility] Comment on above: Performed By: #### C BCDIF, PT, PTT, CMP, MG1 #### [facility] [address] [place], [place] [phone] Eosinophils/100 WBC (Bld) 0.9 % Normal [facility] Comment on above: Performed By: #### C BCDIF, PT, PTT, CMP, MG1 #### [facility] [address] [place] [address] Erythrocyte distribution width (RBC) [Ratio] 13.2 % Normal 11.5-15.0 [facility] Comment on above: Performed By: #### C BCDIF, PT, PTT, CMP, MG1 #### [facility] [address] [facility] [phone] Hematocrit (Bld) [Volume fraction] 30.7 % Low 39.0-51.0 [facility] Comment on above: Performed By: #### C BCDIF, PT, PTT, CMP, MG1 #### [facility] [address] [facility] [phone] Hemoglobin (Bld) [Mass/Vol] 10.0 g/dL Low 13.0-17.0 [facility] Comment on above: Performed By: #### C BCDIF, PT, PTT, CMP, MG1 #### [facility] [address] [facility] [phone] Lymphocytes (Bld) [#/Vol] 1.23 10*3/uL Normal 1.00-4.00 [facility] Comment on above: Performed By: #### C BCDIF, PT, PTT, CMP, MG1 #### [facility] [address] Lymphocytes/100 WBC (Bld) 12.6 % Normal [facility] Comment on above: Performed By: #### C BCDIF, PT, PTT, CMP, MG1 #### [facility] [address] [place] [phone] MCH 28.6 pG Normal 26.0-34.0 [facility] Comment on above: Performed By: #### C BCDIF, PT, PTT, CMP, MG1 #### [facility] [address] [facility] [phone] MCHC (RBC) [Mass/Vol] 32.6 g/dL Normal 30.5-36.0 [facility] Comment on above: Performed By: #### C BCDIF, PT, PTT, CMP, MG1 #### [facility] [address] [facility] [phone] MCV (RBC) [Entitic vol] 87.7 fL Normal 80.0-100.0 [facility] Comment on above: Performed By: #### C BCDIF, PT, PTT, CMP, MG1 #### [facility] [address] [facility] [phone] Monocytes/100 WBC (Bld) 6.6 % Normal [facility] Comment on above: Performed By: #### C BCDIF, PT, PTT, CMP, MG1 #### [facility] [address] [place] [address] Neutrophils/100 WBC (Bld) 79.7 % Normal [facility] Comment on above: Performed By: #### C BCDIF, PT, PTT, CMP, MG1 #### [facility] [address] [place] [address] NRBCs 0.2 /100 WBC High 0 [facility] Comment on above: Performed By: #### C BCDIF, PT, PTT, CMP, MG1 #### [facility] [address] [place] [address] Platelet mean volume (Bld) [Entitic vol] 8.5 fL Low 9.0-12.7 [facility] Comment on above: Performed By: #### C BCDIF, PT, PTT, CMP, MG1 #### [facility] [address] [place] [address] Platelets (Bld) [#/Vol] 337 10*3/uL Normal 150-400 [facility] Comment on above: Performed By: #### C BCDIF, PT, PTT, CMP, MG1 #### [facility] [address] [place] [address] RBC (Bld) [#/Vol] 3.50 10*6/uL Low 4.20-6.00 [facility] Comment on above: Performed By: #### C BCDIF, PT, PTT, CMP, MG1 #### [facility] [address] [place] [address] WBC (Bld) [#/Vol] 9.79 10*3/uL Normal 3.70-11.00 [facility] Comment on above: Performed By: #### C BCDIF, PT, PTT, CMP, MG1 #### [facility] [address] [place], [place] [phone] Comp Metabolic Panelon 01-19 Albumin [Mass/Vol] 3.7 g/dL Low 3.9-4.9 [facility] Comment on above: Performed By: #### C BCDIF, PT, PTT, CMP, MG1 #### [facility] [address] [facility] [phone] ALP [Catalytic activity/Vol] 68 U/L Normal 38-113 [facility] Comment on above: Performed By: #### C BCDIF, PT, PTT, CMP, MG1 #### [facility] [address] [facility] [phone] ALT [Catalytic activity/Vol] 25 U/L Normal 10-54 [facility] Comment on above: Performed By: #### C BCDIF, PT, PTT, CMP, MG1 #### [facility] [address] [facility] [phone] Anion gap [Moles/Vol] 8 mmol/L Low 9-18 [facility] Comment on above: Performed By: #### C BCDIF, PT, PTT, CMP, MG1 #### [facility] [address] [facility] [phone] AST [Catalytic activity/Vol] 25 U/L Normal 14-40 [facility] Comment on above: Performed By: #### C BCDIF, PT, PTT, CMP, MG1 #### [facility] [address] [facility] [phone] Bilirubin [Mass/Vol] 0.9 mg/dL Normal 0.2-1.3 [facility] Comment on above: Performed By: #### C BCDIF, PT, PTT, CMP, MG1 #### [facility] [address] [facility] [phone] Calcium [Mass/Vol] 8.8 mg/dL Normal 8.5-10.2 [facility] Comment on above: Performed By: #### C BCDIF, PT, PTT, CMP, MG1 #### [facility] [address] [facility] [phone] Chloride [Moles/Vol] 100 mmol/L Normal 97-105 [facility] Comment on above: Performed By: #### C BCDIF, PT, PTT, CMP, MG1 #### [facility] [address] [facility] [phone] CO2 [Moles/Vol] 29 mmol/L Normal 22-30 [facility] Comment on above: Performed By: #### C BCDIF, PT, PTT, CMP, MG1 #### [facility] [address] [facility] [phone] Creatinine [Mass/Vol] 0.72 mg/dL Low 0.73-1.22 [facility] Comment on above: Performed By: #### C BCDIF, PT, PTT, CMP, MG1 #### [facility] [address] [facility] [phone] eGFR- Amer. >60 Normal [facility] Comment on above: Performed By: #### C BCDIF, PT, PTT, CMP, MG1 #### [facility] [address] [facility] [phone] eGFR-All Other Races >60 Normal [facility] Comment on above: Result Comment: eGFR (Estimated GFR) Units of measure: mL/min/1.73 meters squared eGFR is derived from the reexpressed MDRD Study equation using the following parameters: serum creatinine, age, gender and race. The creatinine assay has been calibrated to be traceable to IDMS. An eGFR <60 mL/min/1.73m2 for >3 months is consistent with chronic kidney disease. Refer to KDOQI guidelines for clinical interpretation. In patients with unstable renal function, e.g. those with acute kidney injury, the eGFR may not accurately reflect actual GFR. Performed By: #### C BCDIF, PT, PTT, CMP, MG1 #### [facility] [address] [facility] [phone] Glucose [Mass/Vol] 94 mg/dL Normal 74-99 [facility] Comment on above: Result Comment: The [place] Diabetes Association (ADA) provides guidance for cutoff values for fasting glucose and random glucose. The ADA defines fasting as no caloric intake for at least 8 hours. Fasting plasma glucose results between 100 to 125 mg/dL indicate increased risk for diabetes (prediabetes). Fasting plasma glucose results greater than or equal to 126 mg/dL meet the criteria for diagnosis of diabetes. In the absence of unequivocal hyperglycemia, results should be confirmed by repeat testing. In a patient with classic symptoms of hyperglycemia or hyperglycemic crisis, random plasma glucose results greater than or equal to 200 mg/dL meet the criteria for diagnosis of diabetes. Reference: Standards of Medical Care in Diabetes 2016, [place] Diabetes Association. Diabetes Care. 2016.39(Suppl 1). Performed By: #### C BCDIF, PT, PTT, CMP, MG1 #### [facility] [address] [facility] [phone] Potassium [Moles/Vol] 4.5 mmol/L Normal 3.7-5.1 [facility] Comment on above: Performed By: #### C BCDIF, PT, PTT, CMP, MG1 #### [facility] [address] [facility] [phone] Protein [Mass/Vol] 6.7 g/dL Normal 6.3-8.0 [facility] Comment on above: Performed By: #### C BCDIF, PT, PTT, CMP, MG1 #### [facility] [address] [facility] [phone] Sodium [Moles/Vol] 137 mmol/L Normal 136-144 [facility] Comment on above: Performed By: #### C BCDIF, PT, PTT, CMP, MG1 #### [facility] [address] [facility] [phone] Urea nitrogen [Mass/Vol] 17 mg/dL Normal 9-24 [facility] Comment on above: Performed By: #### C BCDIF, PT, PTT, CMP, MG1 #### [facility] [address] [facility] [phone] ED NOTEon 01-19-2021 ED NOTE HNO ID: [id number] Author: Yadi Burrell RN Service: ? Author Type: Registered Nurse Type: ED Notes Filed: 01/19/2021 4:10 PM Note Text: Patient in stable condition upon discharge. resp even and unlabored no distress noted. Discharge and follow up reviewed plan of care is agreed upon. Normal [facility] ED PROV NOTEon 01-19-2021 ED PROV NOTE HNO ID: [id number] Author: Demetrius Allred MD Service: ? Author Type: Physician Type: ED Provider Notes Filed: 01/19/2021 3:10 PM Note Text: ED Provider Note Patient Name: Sunita Harrington SERVICE DATE: 01/19/21 History Patient presents with: Hip Pain: L hip sx 10 days ago, hemophilia hx Patient is a 35-year-old male, with history of hemophilia, heart disease, prior stroke, hypertension, multiple other medical problems, who comes in with mom complaining of pain in his left hip and thigh for the past couple days. He had surgery on his left hip a week and a half ago. He was doing fine up until the past couple days. He denies any recent trauma. He said the pain radiates all the way down to his knee. It feels somewhat swollen. He denies having had pain like this before. He denies any fevers or chills today. No headaches or visual complaints. No cough or sore throat. No chest pain or trouble breathing. No abdominal pain, vomiting, diarrhea or change in stool color. He has slight dysuria although no frequency or hematuria. No rash or bruising or swelling elsewhere. No localizing numbness or weakness. No other associated complaints. PAST MEDICAL HISTORY Diagnosis Date - Coarctation of aorta (preductal) (postductal) Coarctation of aorta - Congenital bicuspid aortic valve 01/02/2015 Monitor: pt will follow outpatient. 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 Based on current guidelines*, a repeat follow-up unenhanced low-dose CT can be obtained in 12 months at clinical discretion. Plan: Pt is aware, follow up w/ local MD. - Post-op pain 09/09/2015 History: Pre-op h/o back pain treated w/ oxycodone 20mg q 6hrs prn and MS contin 30mg tid. MRI 09/08 no evidence of discitis or osteomyelitis. Assessment: Verbalizes adequate pain relief on preop regimen. Plan: Continue Tylenol, lidoderm, and preop regimen of Oxycodone 20mg q 6hrs prn and MS Contin 30mg tid - Pulmonary HTN ([facility]) - Seizure ([facility]) 09/26/2015 History: H/o seizures, on keppra preop Assessment: 09/20/15 post op seizure in ICU. No further events Plan: Continue keppra. Follow up w/ Neurology after discharge. - Stroke (HCC) 01/2015 2 x Brain hemorrhage (07/2014, 11/2014) - Thoracic ascending aortic aneurysm (HCC) - Tooth decay 09/26/2015 History: Preop dental evaluation revealed gross decay and chronic abscess of tooth #2 Assessment: Dental recommended extraction of tooth #2. Plan: After clearance from ID, CTS, Hematology, pt underwent extraction #2 on 09/27/15. Continue amicar x 1 more dose today per Hematology. PAST SURGICAL HISTORY Procedure Laterality Date - ABD AORTA ANEURYSM REPAIR 12/09/2009 replacement of ascending aorta with #28 Hemashield supracoronary graft. - ANKLE SURGERY HX Bilateral x 2-3 each ankle, clean-outs - CONGENITAL HEART SURGERY 05/24/1988 repair coarctation aorta - CRANIOTOMY FOR LOBOTOMY Right 12/2014 Frontal - CRANIOTOMY TEMPORL LOBECTOMY Right 06/2014 - HEART SURGERY HX 2016 re-do CTS - HIP SURGERY HX Left 2002 - KNEE SURGERY HX Left - PICC LINE INSERT/CONSULT 01/08/2015 - PICC LINE INSERT/CONSULT 02/05/2015 - SHX AORTIC STENT 05/24/2005 aortic stenting secondary to re-stenosis FAMILY HISTORY Problem Relation Age of Onset - None Mother age 45 - Hypertension Father age 48 - No Ocular Disease Other Social History Tobacco Use - Smoking status: Never Smoker - Smokeless tobacco: Never Used Vaping Use - Vaping Use: Never used Substance and Sexual Activity - Alcohol use: Yes Comment: occasionally, once every 6 months - Drug use: Not Currently Types: Marijuana, Opiates Comment: former uses; Last use of Opiates around 2019 - Sexual activity: Yes ALLERGIES Allergen Reactions - Asa [Salicylates] Intolerance - Contrast Dye Other: See Comments History of contrast induced nephropathy-Per patient is allergic to CT DYE - Nsaids (Non-Steroid* Other: See Comments Other reaction(s): Other Review of Systems Constitutional: Negative for fever. HENT: Negative. Eyes: Negative. Respiratory: Negative for shortness of breath. Cardiovascular: Positive for leg swelling. Negative for chest pain. Gastrointestinal: Negative for abdominal pain. Genitourinary: Positive for dysuria. Musculoskeletal: Positive for arthralgias, joint swelling and myalgias. Skin: Negative. Neurological: Negative. Psychiatric/Behavioral: Negative. Physical Exam BP 147/72 Pulse 96 Temp (Src) 98.4 (Oral) Resp 16 SpO2 100% (more content not included)... Normal [facility] Magnesiumon 01-19-2021 Magnesium [Mass/Vol] 1.6 mg/dL Low 1.7-2.3 [facility] Comment on above: Performed By: #### C BCDIF, PT, PTT, CMP, MG1 #### [facility] [address] [facility] [phone] Protimeon 01-19-2021 PT INR 1.0 Normal 0.9-1.3 [facility] Comment on above: Result Comment: Jyoti min K Antagonist (VKA) Therapeutic Range: INR 2 to 3 (Target INR of 2.5) Note: For patients treated with VKA drugs, such as warfarin, the [employer] 2012 Guideline recommends a therapeutic INR range of 2 to 3 (target INR of 2.5). This recommendation includes high-risk patients with antiphospholipid syndrome with previous arterial or venous thromboembolism, current-generation mechanical or bioprosthetic aortic heart valve replacement. Note: Patients with mechanical aortic valve replacement and additional risk factors for thromboembolic events (atrial fibrillation, previous thromboembolism, LV dysfunction, hypercoagulable conditions) or an older generation mechanical AVR (i.e., ball in-Cage) or any mechanical MVR should have a INR therapeutic range of 2.5 to 3.5 (target INR of 3). Nena GH, et al. Chest 2012, 141:7S-47S Enrique RA, et al. [facility] 2017, 70: 252-289 Performed By: #### C BCDIF, PT, PTT, CMP, MG1 #### [facility] [address] [facility] [phone] PT Sec 10.7 sec Normal 9.7-13.0 [facility] Comment on above: Performed By: #### C BCDIF, PT, PTT, CMP, MG1 #### [facility] [address] [facility] [phone] US DVT LOWER LTon 01-19-2021 US DVT LOWER LT * * *Final Report* * * DATE OF EXAM: Jan 19 2021 1:22PM MDU 1006 - US DVT LOWER LT / PROCEDURE REASON: Leg swelling * * * * Physician Interpretation * * * * EXAMINATION: LEFT LOWER EXTREMITY DEEP VENOUS ULTRASOUND WITH DOPPLER IMAGING CLINICAL HISTORY: Leg pain and swelling. TECHNIQUE: Grayscale with compression maneuvers, color Doppler and spectral Doppler imaging of the left proximal deep veins was performed. Grayscale with compression maneuvers of the peroneal and posterior tibial veins was performed. The left great and small saphenous veins were evaluated at their insertion to the deep system. The contralateral common femoral vein was imaged for comparison. Images were obtained and stored in a permanent archive. MQ: [id number] COMPARISON: None RESULT: LEFT LOWER EXTREMITY PROXIMAL DEEP VEINS Distal External Iliac, Common Femoral and proximal Profunda Veins: Compression: Normal Doppler: Normal, spontaneous respirophasic flow. Normal response to augmentation. Femoral vein: Compression: Normal Doppler: Normal, spontaneous flow. Normal response to augmentation. Popliteal vein: Compression: Normal Doppler: Normal, spontaneous flow. Normal response to augmentation. CALF DEEP VEINS Peroneal veins: Normal compression. Posterior tibial veins: Normal compression. Gastrocnemius and Soleal veins: Not imaged. SUPERFICIAL VEINS Great saphenous: Patent and compressible at insertion into common femoral vein; not otherwise assessed. RIGHT LOWER EXTREMITY (FOR COMPARISON) Common Femoral Vein: Compression: Normal Doppler: Normal, spontaneous respirophasic flow. Normal response to augmentation. IMPRESSION: Negative study for proximal DVT in the left lower extremity. Negative study for calf DVT in the left lower extremity. Negative study for superficial thrombophlebitis in the imaged segments of the left lower extremity. Production Control Pegboard Clerk: [facility] Transcribe Date/Time: Jan 19 2021 1:33P Dictated by : MERT CHANG MD This examination was interpreted and the report reviewed and electronically signed by: MERT CHANG MD on Jan 19 2021 1:34PM EST [id number] [facility] XR HIP 3V PELV+ AP/LAT LTon 01-19-2021 XR HIP 3V PELV+ AP/LAT LT * * *Final Report* * * DATE OF EXAM: Jan 19 2021 2:11PM MDX 5351 - XR HIP 3V PELV+ AP/LAT LT / PROCEDURE REASON: Bone pain, hip * * * * Physician Interpretation * * * * Pelvis and left hip radiographs HISTORY: 35 years old Clinical information: Bone pain, hip Left hip replaced 10 days ago. Unable to move leg or put weight on it. TECHNIQUE: Images: XR HIP 3V PELV+ AP/LAT LT Comparison: None. RESULT: Findings: Left-sided [place] resurfacing prosthesis. Alignment appears intact. No perihardware osteolysis. No hardware fracture. No fracture or dislocation. Superior right hip joint space is maintained. Mild osteophyte formation on the right acetabulum. Remainder of the imaged bony pelvis appears to be intact. Pubic symphysis and SI joints are intact. Soft tissue emphysema in the left thigh. IMPRESSION: Postsurgical change. No complication. Soft tissue emphysema in the left thigh likely related to patient's recent surgery. Production Control Pegboard Clerk: P[facility] Transcribe Date/Time: Jan 19 2021 2:12P Dictated by : MURPHY RAMOS MD This examination was interpreted and the report reviewed and electronically signed by: MURPHY RAMOS MD on Jan 19 2021 2:13PM EST [id number] Normal [facility] HISTORY PHYSICALon HISTORY PHYSICAL HNO ID: [id number] Author: Jesusita Mitchell APRN.CANCER CENTER DIRECTOR Service: ? Author Type: Nurse Practitioner Type: HANDP Filed: 01/06/2021 7:52 AM Note Text: HISTORY AND PHYSICAL EXAMINATION SERVICE DATE: 01/03/2021 SERVICE TIME: 12:52 PM PRIMARY CARE PHYSICIAN: Marcela Jacob PA-C REASON FOR VISIT: Sunita Harrington is a 35 year old male who is scheduled for L TYLER at the request of Dr. Rich Dejesus for consultation. My final recommendation will be communicated back to the requesting physician by way of shared medical record or letter. 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 Dental Caries On Smooth Surface Penetrating into Pulp Retained Dental Root History of Left acute arterial ischemic stroke, MCA (middle cerebral artery) ([facility]) Depression H/O Aortic Coarctation Repair Intracranial Hemorrhage ([facility]) Summary Back Pain Systolic Dysfunction Partial Epilepsy With Impairment of Consciousness, Intractable ([facility]) Complex Partial Seizures With Consciousness Impaired ([facility]) 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 He has had pain since then. Pain is constant and just hurts. It does not interfere with his sleep. It can radiate into his knee at times. Rest helps with some relief. He received cortisone injections previously; the first 2 helped but the 3rd did not. He has a very difficult time ambulating because of the hip. REVIEW OF SYSTEMS: General: No weight loss, malaise or fevers. Neurological: (+) H/O ICH x 2 s/p frontal and temporal craniotomy Positive for: seizures (Taking Rx; last episode about 2 years ago) and strokes (2015; Issues with short term memory loss ). Negative for: impaired sensorium, multiple sclerosis, Parkinson's disease, peripheral neuropathy and TIA. Respiratory: No history of current cough or dyspnea, or pneumonia in the past 6 weeks. No history of respiratory/pulmonary symptoms or problems. Cardiovascular: (+) Pulmonary HTN Positive for: abdominal aortic aneurysm, congenital heart defect, murmur/valvular heart disease, open heart surgery and valve surgery Negative for: arrhythmia, atrial fibrillation, chest pain, CHF, DVT/PE, hyperlipidemia, hypertension and recent CO. GI: No history of GI symptoms or problems. No history of esophageal varices, recent ascites, or ETOH greater than 2 drinks per day. : No history of dysuria, frequency or incontinence, stones or chronic kidney disease. No difficulty urinating, nocturia > 1 time per night or hematuria. Endocrine: No history of diabetes. Has not taken steroids within the past 30 days. No history of endocrinological symptoms or problems. Hematology: Positive for: hemophilia (Jivi infusions 2 x week). Negative for: anemia, bruises/bleeds easily, thrombocytopenia and chronic anti-coagulation/platel et meds. Oncology: No history of CA metastasis, chemo within 30 days, or radiotherapy within 90 days. No history of oncological symptoms or problems. Psych: (+) H/O opiate abuse currently on Suboxone Positive for: depression (on Rx). Musculoskeletal: Positive for: joint pain (SEE HPI, Elbow also bothersome ). Negative for: swelling. Skin: Negative for lesions, rash and itching. PAST MEDICAL HISTORY Diagnosis Date - Coarctation of aorta (preductal) (postductal) Coarctation of aorta - Congenital bicuspid aortic valve 01/02/2015 Monitor: pt will follow outpatient. 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 Based on current guidelines*, a repeat follow-up unenhanced low-dose CT can be obtained in 12 months at clinical discretion. Plan: Pt is aware, follow up w/ local MD. - Post-op pain 09/09/2015 History: Pre-op h/o back pain treated w/ oxycodone 20mg q 6hrs prn and MS contin 30mg tid. MRI 09/08 no evidence of discitis or osteomyelitis. Assessment: Verbalizes adequate pain relief on pre (more content not included)... Normal [facility] CT FEMUR WO IVCON LTon 11-29 CT FEMUR WO IVCON LT * * *Final Report* * * DATE OF EXAM: Nov 29 2020 3:52PM [facility] 0071 - CT FEMUR WO IVCON LT / PROCEDURE REASON: M16.32-Osteoarthritis resulting from left hip dysplasia * * * * Physician Interpretation * * * * HISTORY: Need to determine the anteversion of the femoral neck compared to epicondylar di stal femur axis. Please compare to right side, as well (bilateral limited scan). EVAL FEMORAL NECKS, PRE OP TECHNIQUE: CT FEMUR WO IVCON LTwas performed in the axial plane CT Dose-Length Product (DLP): 707 mGy*cm. Orthopedic Hardware: No CT Dose Reduction Employed: Yes COMPARISON: Radiographs 11/22/2020. RESULT: Axial images were obtained through the level of the femoral heads and necks bilaterally as well as the knees bilaterally to assess for femoral torsion. Measurement of femoral torsion is made between the axis of the femoral neck and the posterior condylar access of the distal femur. Technologist generated measurements were remeasured and revised using different femoral neck axis and are saved to the permanent archive. FEMORAL TORSION: Right-sided femoral torsion: 5 degrees of retroversion. Left sided femoral torsion: 1.5 degrees of retroversion. ACETABULAR VERSION: Right side: 17 degrees of anteversion. Left side: 9 degrees of retroversion IMPRESSION: FEMORAL TORSION MEASUREMENTS DESCRIBED Production Control Pegboard Clerk: WILBUR Transcribe Date/Time: Nov 29 2020 5:39P Dictated by : MURPHY HINKLE MD This examination was interpreted and the report reviewed and electronically signed by: MURPHY HINKLE MD on Nov 29 2020 5:53PM EST [id number] [facility] XR HIP 2V AP/ LAT LTon 02-07 XR HIP 2V AP/ LAT LT * * *Final Report* * * DATE OF EXAM: Feb 08 2020 3:33PM NICKI 5279 - XR HIP 2V AP/ LAT LT / PROCEDURE REASON: M25.552-Pain in left hip * * * * Physician Interpretation * * * * EXAMINATION: XR HIP 2V AP/ LAT LT CLINICAL HISTORY: PAIN IN LEFT HIP. Pain in left hip Technique: XR HIP 2V AP/ LAT LT -- LEFT with 2 views on 2 images Comparison: None RESULT: Shallow left acetabula with mild to moderate uncovering of the lateral femoral head. Secondary degenerative changes with superolateral joint space narrowing and small marginal osteophytes. SI joints and pubic symphysis are intact. Lower lumbar spine is unremarkable. 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 No acute osseous findings. Production Control Pegboard Clerk: [facility] Transcribe Date/Time: Feb 08 2020 3:39P Dictated by : JOHN KAHN MD This examination was interpreted and the report reviewed and electronically signed by: JOHN KAHN MD on Feb 08 2020 3:43PM EST [id number] [facility]. Teston 07-04-2018 [facility] [place]. Test Result SEE BELOW Normal [facility] Comment on above: Result Comment: Fact or VIII:C Assay 2 L 50-173 % Result rechecked. Called to and read back by: Marquita [facility] 07/04/15 Donald Cantrell Performing Laboratory: [address] [place] [address] [place] [address] Performed By: #### G OX #### [facility] [address] [address] Misc. Teston 06-30-2018 [facility] Order Code FVIIIC Normal [facility] Comment on above: Performed By: #### G OX #### [facility] [address] [address] Test Name factor VIII Normal [facility] Comment on above: Performed By: #### G OX #### [facility] [address] [address] Medium Joint Arthro/Inj: R e lbow joint [facility] Vital Signs Date Time Vital Sign Value Performing Clinician Facility 08-22-2024 17:12-0400 Body temperature 98 [degF] NA Jacob PA Work Phone: [facility] 08-22-2024 17:12-0400 Diastolic blood pressure 77 mm[Hg] NA Jacob PA Work Phone: [facility] 08-22-2024 17:12-0400 Heart rate 74 /min NA Jacob PA Work Phone: [facility] 08-22-2024 17:12-0400 Respiratory rate 22 /min NA Jacob PA Work Phone: [facility] 08-22-2024 17:12-0400 SaO2% (BldA) [Mass fraction] 96 % NA Jacob PA Work Phone: [facility] 08-22-2024 17:12-0400 Systolic blood pressure 138 mm[Hg] NA Jacob PA Work Phone: [facility] 08-22-2024 13:07-0400 Body height 200.66 cm NA Jacob PA Work Phone: [facility] 08-22-2024 13:07-0400 Body mass index (BMI) [Ratio] 26.7 kg/m2 NA Jacob PA Work Phone: [facility] 08-22-2024 13:07-0400 Body weight 107.8 kg NA Jacob PA Work Phone: [facility] 07-17-2024 10:20-0500 Body height 198.1 cm Austen Blevins MD Work Phone: [facility] 07-17-2024 10:20-0500 Body mass index (BMI) [Ratio] 28.31 kg/m2 Austen Blevins MD Work Phone: [facility] 07-17-2024 10:20-0500 Body temperature 97.7 [degF] Austen Blevins MD Work Phone: [facility] 07-17-2024 10:20-0500 Body weight 111.13 kg Austen Blevins MD Work Phone: [facility] 07-17-2024 10:20-0500 Diastolic blood pressure 88 mm[Hg] Austen Blevins MD Work Phone: [facility] Comment on above: RT ARM 07-17-2024 10:20-0500 Heart rate 100 /min Austen Blevins MD Work Phone: [facility] 07-17-2024 10:20-0500 SaO2% (BldA) [Mass fraction] 96 % Austen Blevins MD Work Phone: [facility] 07-17-2024 10:20-0500 Systolic blood pressure 137 mm[Hg] Austen Blevins MD Work Phone: [facility] Comment on above: RT ARM 05-01-2024 14:25-0500 Body mass index (BMI) [Ratio] 26.81 kg/m2 Vonnie Man TURF KEEPER.CANCER CENTER DIRECTOR Work Phone: [facility] 05-01-2024 14:25-0500 Body weight 107.96 kg Vonnie Man TURF KEEPER.CANCER CENTER DIRECTOR Work Phone: [facility] 05-01-2024 14:25-0500 Diastolic blood pressure 86 mm[Hg] Vonnie Man TURF KEEPER.CANCER CENTER DIRECTOR Work Phone: [facility] 05-01-2024 14:25-0500 Heart rate 91 /min Vonnie Man TURF KEEPER.CANCER CENTER DIRECTOR Work Phone: [facility] 05-01-2024 14:25-0500 Respiratory rate 16 /min Vonnie Man TURF KEEPER.CANCER CENTER DIRECTOR Work Phone: [facility] 05-01-2024 14:25-0500 SaO2% (BldA) [Mass fraction] 94 % Vonnie Man TURF KEEPER.CANCER CENTER DIRECTOR Work Phone: [facility] 05-01-2024 14:25-0500 Systolic blood pressure 128 mm[Hg] Vonnie Man TURF KEEPER.CANCER CENTER DIRECTOR Work Phone: [facility] 07-20-2023 10:18-0500 Body height 200.7 cm Austen Blevins MD Work Phone: [facility] 07-20-2023 10:18-0500 Body temperature 97.5 [degF] Austen Blevins MD Work Phone: [facility] 07-20-2023 10:18-0500 Body weight 107.05 kg Austen Blevins MD Work Phone: [facility] 07-20-2023 10:18-0500 Diastolic blood pressure 66 mm[Hg] Austen Blevins MD Work Phone: [facility] 07-20-2023 10:18-0500 Heart rate 95 /min Austen Blevins MD Work Phone: [facility] 07-20-2023 10:18-0500 SaO2% (BldA) [Mass fraction] 97 % Austen Blevins MD Work Phone: [facility] 07-20-2023 10:18-0500 Systolic blood pressure 104 mm[Hg] Austen Blevins MD Work Phone: [facility] 02-12-2023 14:07-0400 Body weight 104.78 kg NA Cecil PA-C Work Phone: [facility] 02-12-2023 14:07-0400 Diastolic blood pressure 78 mm[Hg] NA Jacob PA-C Work Phone: [facility] 02-12-2023 14:07-0400 Heart rate 97 /min NA Jacob PA-C Work Phone: [facility] 02-12-2023 14:07-0400 Respiratory rate 16 /min NA Jacob PA-C Work Phone: [facility] 02-12-2023 14:07-0400 SaO2% (BldA) [Mass fraction] 98 % NA Jaocb PA-C Work Phone: [facility] 02-12-2023 14:07-0400 Systolic blood pressure 124 mm[Hg] NA Jacob PA-C Work Phone: [facility] 07-17-2022 14:43-0500 Body weight 108.86 kg Jimmy Turner MD Work Phone: [facility] 07-17-2022 14:43-0500 Diastolic blood pressure 60 mm[Hg] Jimmy Turner MD Work Phone: [facility] 07-17-2022 14:43-0500 Heart rate 89 /min Jimmy Turner MD Work Phone: [facility] 07-17-2022 14:43-0500 SaO2% (BldA) [Mass fraction] 100 % Jimmy Turner MD Work Phone: [facility] 07-17-2022 14:43-0500 Systolic blood pressure 119 mm[Hg] Jimmy Turner MD Work Phone: [facility] 07-15-2022 10:19-0500 Diastolic blood pressure 70 mm[Hg] Vonnie Man TURF KEEPER.CANCER CENTER DIRECTOR Work Phone: [facility] 07-15-2022 10:19-0500 Heart rate 108 /min Vonnie Haagen TURF KEEPER.CANCER CENTER DIRECTOR Work Phone: [facility] 07-15-2022 10:19-0500 Respiratory rate 18 /min Vonnie Man TURF KEEPER.CANCER CENTER DIRECTOR Work Phone: [facility] 07-15-2022 10:19-0500 SaO2% (BldA) [Mass fraction] 99 % Vonnie Man TURF KEEPER.CANCER CENTER DIRECTOR Work Phone: [facility] 07-15-2022 10:19-0500 Systolic blood pressure 118 mm[Hg] Vonnie Man TURF KEEPER.CANCER CENTER DIRECTOR Work Phone: [facility] 06-27-2022 09:00-0500 Heart rate 87 /min [facility] 06-27-2022 09:00-0500 Respiratory rate 17 /min [facility] 06-27-2022 09:00-0500 SaO2% (BldA) [Mass fraction] 100 % [facility] 06-27-2022 07:00-0500 Diastolic blood pressure 55 mm[Hg] [facility] 06-27-2022 07:00-0500 Systolic blood pressure 103 mm[Hg] [facility] 06-27-2022 02:24-0500 Body height 200.66 cm [facility] 06-27-2022 02:24-0500 Body mass index (BMI) [Ratio] 27.4 kg/m2 [facility] 06-27-2022 02:24-0500 Body temperature 96.8 [degF] [facility] 06-27-2022 02:24-0500 Body weight 110.6 kg [facility] 06-23-2022 14:34-0500 Diastolic blood pressure 82 mm[Hg] Vonnie Man TURF KEEPER.CANCER CENTER DIRECTOR Work Phone: [facility] 06-23-2022 14:34-0500 Heart rate 82 /min Vonnie Man TURF KEEPER.CANCER CENTER DIRECTOR Work Phone: [facility] 06-23-2022 14:34-0500 Respiratory rate 18 /min Vonnie Man TURF KEEPER.CANCER CENTER DIRECTOR Work Phone: [facility] 06-23-2022 14:34-0500 SaO2% (BldA) [Mass fraction] 97 % Vonnie Man TURF KEEPER.CANCER CENTER DIRECTOR Work Phone: [facility] 06-23-2022 14:34-0500 Systolic blood pressure 126 mm[Hg] Vonnie Man TURF KEEPER.CANCER CENTER DIRECTOR Work Phone: [facility] 04-27-2022 11:43-0500 Body height 200.7 cm Austen Blevins MD Work Phone: [facility] 04-27-2022 11:43-0500 Body temperature 98.2 [degF] Austen Blevins MD Work Phone: [facility] 04-27-2022 11:43-0500 Body weight 101.15 kg Austen Blevins MD Work Phone: [facility] 04-27-2022 11:43-0500 Diastolic blood pressure 83 mm[Hg] Austen Blevins MD Work Phone: [facility] 04-27-2022 11:43-0500 Heart rate 103 /min Austen Blevins MD Work Phone: [facility] 04-27-2022 11:43-0500 SaO2% (BldA) [Mass fraction] 97 % Austen Blevins MD Work Phone: [facility] 04-27-2022 11:43-0500 Systolic blood pressure 144 mm[Hg] Austen Blevins MD Work Phone: [facility] 04-23-2022 14:00-0500 Body temperature 97.2 [degF] Macy Bourgeois APRN.CANCER CENTER DIRECTOR Work Phone: [facility] 04-23-2022 14:00-0500 Body weight 104.24 kg Macy Bourgeois APRN.CANCER CENTER DIRECTOR Work Phone: [facility] 04-23-2022 14:00-0500 Diastolic blood pressure 80 mm[Hg] Macy Bourgeois APRN.CANCER CENTER DIRECTOR Work Phone: [facility] 04-23-2022 14:00-0500 Heart rate 84 /min Macy Bourgeois APRN.CANCER CENTER DIRECTOR Work Phone: [facility] 04-23-2022 14:00-0500 Respiratory rate 16 /min Macy Bourgeois APRN.CANCER CENTER DIRECTOR Work Phone: [facility] 04-23-2022 14:00-0500 SaO2% (BldA) [Mass fraction] 97 % Macy Bk TURF KEEPER.CANCER CENTER DIRECTOR Work Phone: [facility] 04-23-2022 14:00-0500 Systolic blood pressure 122 mm[Hg] Macy Bourgeois TURF KEEPER.CANCER CENTER DIRECTOR Work Phone: [facility] 12-15-2021 13:10-0400 Diastolic blood pressure 82 mm[Hg] Vonnie Haagen TURF KEEPER.CANCER CENTER DIRECTOR Work Phone: [facility] 12-15-2021 13:10-0400 Heart rate 102 /min Vonnie Haagen TURF KEEPER.CANCER CENTER DIRECTOR Work Phone: [facility] 12-15-2021 13:10-0400 Respiratory rate 18 /min Vonnie Haagen TURF KEEPER.CANCER CENTER DIRECTOR Work Phone: [facility] 12-15-2021 13:10-0400 SaO2% (BldA) [Mass fraction] 97 % Vonnie Man TURF KEEPER.CANCER CENTER DIRECTOR Work Phone: [facility] 12-15-2021 13:10-0400 Systolic blood pressure 122 mm[Hg] Vonnie Haagen TURF KEEPER.CANCER CENTER DIRECTOR Work Phone: [facility] 12-05-2021 15:37-0400 Body temperature 97.81 [degF] Blaire Truong TURF KEEPER.CANCER CENTER DIRECTOR Work Phone: [facility] 12-05-2021 15:37-0400 Body weight 104.15 kg Blaire Truong TURF KEEPER.CANCER CENTER DIRECTOR Work Phone: [facility] 12-05-2021 15:37-0400 Diastolic blood pressure 64 mm[Hg] Blaire Truong TURF KEEPER.CANCER CENTER DIRECTOR Work Phone: [facility] 12-05-2021 15:37-0400 Heart rate 68 /min Blaire Truong TURF KEEPER.CANCER CENTER DIRECTOR Work Phone: [facility] 12-05-2021 15:37-0400 Respiratory rate 18 /min Blaire Truong TURF KEEPER.CANCER CENTER DIRECTOR Work Phone: [facility] 12-05-2021 15:37-0400 SaO2% (BldA) [Mass fraction] 99 % Blaire Truong TURF KEEPER.CANCER CENTER DIRECTOR Work Phone: [facility] 12-05-2021 15:37-0400 Systolic blood pressure 126 mm[Hg] Blaire Truong TURF KEEPER.CANCER CENTER DIRECTOR Work Phone: [facility] Encounters Encounter Date Encounter Type Care Provider Facility Start: 02-20-2025 End: 02-20-2025 [facility] Facility:[facility] Start: 2025 End: 2025 ambulatory [facility] Work Phone: Cardiology Comment on above: Systolic dysfunction (Primary Dx); Encounter for medication review and counseling Start: 2025 End: 2025 Telemedicine consultation with patient [facility] Work Phone: Cardiology Start: 12-21-2024 End: 12-21-2024 [facility] Facility:[facility] Start: 12-20-2024 End: 12-20-2024 Patient encounter procedure Victorino Moeller PA-C Work Phone: Orthopaedics Comment on above: Arthritis of both an kles (Primary Dx); Hemophilia (HCC); History of CVA (cerebrovascular accident) Start: 12-20-2024 End: 12-20-2024 ambulatory VICTORINO MOELLER Facility:[facility] Start: 12-20-2024 End: 12-20-2024 Subsequent hospital visit by physician Kyle Capellan [facility] Work Phone: Radiology Comment on above: Pain [R52] Start: 12-13-2024 End: 12-13-2024 ambulatory Janneth Thomas [facility] Work Phone: Cardiology Comment on above: Systolic dysfunction (Primary Dx); Encounter for medication review and counseling Start: 12-13-2024 End: 12-13-2024 Telemedicine consultation with patient Janneth Thomas [facility] Work Phone: Cardiology Start: 11-16-2024 End: 11-17-2024 Refill Austen Blevins MD Work Phone: [facility] Hematology/Oncology Comment on above: Refill Request Start: 11-14-2024 End: 11-14-2024 ambulatory Zak oBbby [facility] Work Phone: Cardiology Comment on above: Systolic dysfunction (Primary Dx); Encounter for medication review and counseling Start: 11-14-2024 End: 11-14-2024 Telemedicine consultation with patient Zak Bobby RPh Work Phone: Cardiology Start: 11-06-2024 End: 11-09-2024 Telephone encounter Austen Blevins MD Work Phone: [facility] Hematology/Oncology Start: 10-18-2024 End: 10-18-2024 Refill Austen Blevins MD Work Phone: [facility] Hematology/Oncology Comment on above: Refill Request Start: 10-10-2024 End: 10-10-2024 ambulatory [facility] Facility:[facility] Start: 10-09-2024 End: 10-09-2024 ambulatory [facility] Facility:[facility] Start: 10-09-2024 End: 10-09-2024 [facility] Facility:[facility] Start: 08-22-2024 End: 08-22-2024 Emergency department patient visit LOREN WHITE Work Phone: -Emergency Department Work Phone: Start: 08-10-2024 End: 08-10-2024 Refill Austen Blevins MD Work Phone: [facility] Hematology/Oncology Comment on above: Refill Request Start: 08-09-2024 End: 08-09-2024 Refill Austen Blevins MD Work Phone: [facility] Hematology and Oncology Comment on above: Refill Request Start: 07-17-2024 End: 07-17-2024 Telephone encounter Austen Blevins MD Work Phone: [facility] Hematology/Oncology Comment on above: Parking Start: 07-17-2024 End: 07-17-2024 ambulatory Austen Blevins MD Work Phone: [facility] Hematology/Oncology Comment on above: Hemophilia A (HCC) ( Primary Dx); Iron deficiency anemia due to chronic blood loss Start: 07-17-2024 End: 07-17-2024 Patient encounter procedure Austen Blevins MD Work Phone: [facility] Hematology/Oncology Start: 05-05-2024 End: 05-15-2024 Telephone encounter Vonnie Man APRN.CNP Work Phone: [facility] Comment on above: Results Start: 05-05-2024 End: 05-05-2024 [facility] Facility:[facility] Start: 05-05-2024 End: 05-05-2024 [facility] Facility:[facility] Start: 05-05-2024 End: 05-05-2024 Subsequent hospital visit by physician Jerry [facility] (I-Stat) Work Phone: Cat Scan Comment on above: Lung nodules [R91.8] Start: 05-02-2024 End: 05-15-2024 Orders Only Luciano Chambers [facility] Comment on above: H/O aortic coarctati on repair (Primary Dx) Start: 05-01-2024 End: 05-01-2024 [facility] Facility:[facility] Start: 05-01-2024 End: 05-01-2024 Office outpatient visit 25 minutes Vonnie Man APRN.CANCER CENTER DIRECTOR Work Phone: [facility] Comment on above: 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); Seizure disorder (HCC); Screening for lipid disorders; Hypernatremia; Congenital bicuspid aortic valve; Aneurysm of ascending aorta without rupture (HCC); Valvular heart disease; Lung nodules; Encounter for immunization Start: 05-01-2024 End: 05-01-2024 [facility] Facility:[facility] Start: 04-25-2024 End: 04-25-2024 Refill Aris Jacob PA-C [facility] Comment on above: Refill Request (Out of medication) Start: 02-03-2024 End: 02-03-2024 Refill Marcela Jacob PA-C Work Phone: [facility] [place] Comment on above: Refill Request Start: 01-27-2024 End: 01-28-2024 Refill Austen Blevins MD Work Phone: [facility] Hematology/Oncology Comment on above: Refill Request Start: 12-29-2023 Refill Austen Blevins MD Work Phone: [facility] Hematology/Oncology Comment on above: Refill Request Start: 08-14-2023 Refill Marcela Lawton on PA-C Work Phone: [facility] Comment on above: Refill Request Start: 08-05-2023 Telephone encounter Austen Blevins MD Work Phone: [facility] Hematology/Oncology Comment on above: Letter Start: 07-20-2023 End: 07-20-2023 ambulatory Austen Blevins MD Work Phone: [facility] Hematology/Oncology Comment on above: Hemophilia A (HCC) ( Primary Dx); Hemophilic arthropathy (HCC); Anemia, blood loss; Iron deficiency anemia due to chronic blood loss Start: 07-20-2023 End: 07-20-2023 Patient encounter procedure Austen Blevins MD Work Phone: [facility] Start: 02-12-2023 End: 02-12-2023 Patient encounter procedure Marcela Jacob PA-C Work Phone: [facility] [place] Comment on above: 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); Seizure disorder (HCC); Screening for lipid disorders; Encounter for immunization Start: 02-10-2023 Refill Marcela Lawton on PA-C Work Phone: [address] [place] [address] Comment on above: Refill Request Start: 01-26-2023 Refill Austen Blevins MD Work Phone: [facility] Hematology/Oncology Comment on above: Refill Request Start: 12-03-2022 Refill Marcela Lawton on PA-C Work Phone: [facility] Comment on above: Refill Request Start: 10-01-2022 Telephone encounter Laura William Research Coordinator Neuro Stroke Comment on above: Outcomes (90 day mRS ) Start: 07-17-2022 End: 07-17-2022 Patient encounter procedure Jimmy Turner MD Work Phone: Neurology Comment on above: Partial symptomatic epilepsy with complex partial seizures, not intractable, without status epilepticus (HCC) Start: 07-15-2022 End: 07-15-2022 Office outpatient visit 25 minutes Vonnie Man APRN.CANCER CENTER DIRECTOR Work Phone: [facility] Comment on above: 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); Seizure disorder (HCC) Start: 06-27-2022 End: 06-27-2022 Emergency department patient visit [facility] Start: 06-23-2022 End: 06-23-2022 Patient encounter procedure Vonnie Man APRN.CANCER CENTER DIRECTOR Work Phone: [facility] Comment on above: Hematoma of scalp, s ubsequent encounter (Primary Dx); Lung nodules; Seizure disorder (HCC); Cellulitis of skin; SAH (subarachnoid hemorrhage) (HCC); Hemophilia A (HCC) Start: 06-11-2022 ambulatory Cat Schaefer APRN.CANCER CENTER DIRECTOR Work Phone: Critical Care Start: 05-20-2022 Refill Austen Blevins MD Work Phone: [facility] Hematology/Oncology Comment on above: Refill Request Start: 04-27-2022 End: 04-27-2022 ambulatory Austen Blevins MD Work Phone: [facility] Hematology/Oncology Comment on above: Hemophilia A (HCC) ( Primary Dx); Anemia, blood loss; Hemophilic arthropathy Start: 04-27-2022 End: 04-27-2022 Patient encounter procedure Austen Blevins MD Work Phone: [facility] Start: 04-23-2022 End: 04-23-2022 Patient encounter procedure Macy Bourgeois APRN.CANCER CENTER DIRECTOR Work Phone: [facility] Comment on above: Throat pain (Primary Dx) Start: 04-12-2022 Refill Quynh SOLARESCANCER CENTER DIRECTOR Work Phone: Neurology Comment on above: Refill Request Start: 03-05-2022 End: 03-05-2022 Patient encounter procedure Bryanna Scott MD Work Phone: Orthopedics Comment on above: Avascular necrosis o f bone (HCC) (Primary Dx) Start: 02-09-2022 ambulatory BRYANNA SCOTT Facili ty:[facility] Start: 02-09-2022 End: 02-09-2022 Subsequent hospital visit by physician Mri [facility] (I-Stat/1.5t) RADIO MRI [facility] Start: 01-28-2022 Refill Marcela Robe Jered on PA-C Work Phone: [facility] Comment on above: Refill Request Start: 01-15-2022 Refill Jasmin Fam on TURF KEEPER.CANCER CENTER DIRECTOR Work Phone: [facility] Hematology/Oncology Comment on above: Refill Request Start: 01-14-2022 Refill Madiha Azevedo PRN.CANCER CENTER DIRECTOR Work Phone: Neurology Comment on above: Refill Request Start: 01-08-2022 End: 01-08-2022 Patient encounter procedure Bryanna Scott MD Work Phone: Orthopedics Comment on above: Hemophilic arthropat hy (Primary Dx) Start: 12-15-2021 End: 12-15-2021 Office outpatient visit 15 minutes Vonnie Man TURF KEEPER.CANCER CENTER DIRECTOR Work Phone: [facility] Comment on above: Upper back pain (Scarlett tio Dx) Start: 12-05-2021 End: 12-05-2021 Patient encounter procedure Blaire Truong TURF KEEPER.CANCER CENTER DIRECTOR Work Phone: [facility] Comment on above: Acute pain of left s spencer (Primary Dx) Start: 09-23-2021 Refill Austen Blevins MD Work Phone: [facility] Comment on above: Refill Request Start: 07-15-2021 Refill Jeremias Fernandez MD Work Phone: Neurology Comment on above: Refill Request Start: 01-30-2015 End: 09-23-2015 Patient encounter status Austen Blevins MD Work Phone: [facility] Start: 12-02-2009 End: 12-10-2009 Patient encounter status Austen Blevins MD Work Phone: [facility] Procedures Date Procedure Procedure Detail Performing Clinician Start: 08-22-2024 CT of head without contrast LOREN WHITE Work Phone: Start: 05-01-2024 Lipid 1996 panel - Serum or Plasma Ct (I-Stat) Work Phone: Start: 03-05-2022 Arthrocentesis aspir&/inj interm jt/burs w/o us Bryanna Scott MD Work Phone: Start: 09-09-2015 History of repair of coarctation of aorta H/O aortic coarctation repair Jeremias Fernandez MD Work Phone: Start: 01-27-2015 Lipid 1996 panel - Serum or Plasma LOREN Jacob PA-C Work Phone: History of repair of coarctation of aorta H/O aortic coarctation repair Luciano Chambers [facility] Plan of Treatment Date Care Activity Detail Author Start: 02-12-2033 Urine microalbumin profile DTa P,Tdap,Td Vaccine (7 - Td or Tdap) [facility] Start: 05-01-2029 Lipid panel Lipid Screening [facility] Start: 07-17-2025 End: 10-16-2025 CBC W Auto Differential panel - Blood COMPLETE BLOOD COUNT AND DIFFERENTIAL Lab Routine Hemophilia A (HCC) Iron deficiency anemia due to chronic blood loss Expected: 07/17/2025 (Approximate), Expires: 10/16/2025 [facility] Work Phone: Comment on above: Expected: 07/17/2025 (Approximate), Expires: 10/16/2025 Start: 07-17-2025 End: 10-16-2025 Coagulation factor VIII activity actual/normal in Platelet poor plasma by Coagulation assay FACTOR VIII:C ASSAY Lab Routine Hemophilia A (HCC) Expected: 07/17/2025 (Approximate), Expires: 10/16/2025 [facility] Comment on above: Expected: 07/17/2025 (Approximate), Expires: 10/16/2025 Start: 07-17-2025 End: 10-16-2025 Ferritin [Mass/volume] in Serum or Plasma FERRITIN Lab Routine Iron deficiency anemia due to chronic blood loss Expected: 07/17/2025 (Approximate), Expires: 10/16/2025 [facility] Comment on above: Expected: 07/17/2025 (Approximate), Expires: 10/16/2025 Start: 07-17-2025 End: 10-16-2025 Iron and Iron binding capacity panel - Serum or Plasma IRON AND TIBC Lab Routine Iron deficiency anemia due to chronic blood loss Expected: 07/17/2025 (Approximate), Expires: 10/16/2025 [facility] Comment on above: Expected: 07/17/2025 (Approximate), Expires: 10/16/2025 Start: 07-16-2025 End: 07-16-2025 ambulatory 07/16/2025 10:00 AM EST Visit (SP) Office [facility] [address] [place], [place] [phone] Austen Blevins MD [address] [address] 1yr ov (?labs) [facility] Comment on above: 3yr ov (?labs) Start: 02-27-2025 End: 02-27-2025 ambulatory 02/27/2025 3:00 PM EDT Distance [facility] Cardiology [address] [place] [address] Zak Bobby, [facility] [address] [place] [address] Medication Optimization-est Cardiology Comment on above: Medication Optimizat ion-est Start: 02-23-2025 End: 05-25-2025 Basic metabolic 2000 panel - Serum or Plasma BASIC METABOLIC PANEL Lab Routine Systolic dysfunction Expected: 02/23/2025, Expires: 05/25/2025 [facility] Work Phone: Comment on above: Expected: 02/23/2025 , Expires: 05/25/2025 Start: 2025 End: 2025 ambulatory 2025 3:00 PM EDT [facility] [address] [phone] Zak Bobby, [facility] [address] [place] [address] Medication Optimization-est Cardiology Comment on above: Medication Optimizat ion-est Start: 01-22-2025 Influenza vaccination Influenza Vacc ine (#1) [facility] Start: 12-20-2024 End: 12-20-2024 Patient encounter procedure Radiology Comment on above: Pain [R52] ankle pain Start: 12-13-2024 End: 12-13-2024 ambulatory 12/13/2024 3:00 PM EDT [facility] Cardiology [address] [place] [address] Janneth Thomas, [facility] Medication Optimization-est Cardiology Comment on above: Medication Optimizat ion-est Start: 11-14-2024 End: 11-14-2024 ambulatory 11/14/2024 2:30 PM EDT [facility] Cardiology [address] [phone] Zak Bobby, [facility] Medication Optimization-New Cardiology Comment on above: Medication Optimizat ion-New Start: 11-14-2024 End: 02-13-2025 Basic metabolic 2000 panel - Serum or Plasma BASIC METABOLIC PANEL Lab Routine Systolic dysfunction Expected: 11/14/2024, Expires: 02/13/2025 [facility] Work Phone: Comment on above: Expected: 11/14/2024 , Expires: 02/13/2025 Start: 10-09-2024 End: 10-09-2024 Patient encounter procedure 10/09/2024 3:30 PM EDT Office Visit Cardiology [address] [place], [place] [phone] Diagnosis: Coarctation of aorta [Q25.1] Cardiology Comment on above: Diagnosis: Coarctati on of aorta [Q25.1] Start: 10-09-2024 End: 10-09-2024 Patient encounter procedure 10/09/2024 1:15 PM EDT Office Visit Cardiology [address] [place] [address] Gal Steven MD [address] [place] [address] Diagnosis: Coarctation of aorta [Q25.1] Cardiology Comment on above: Diagnosis: Coarctati on of aorta [Q25.1] Start: 10-02-2024 End: 10-02-2024 ambulatory 10/02/2024 12:45 PM EDT Results Only Cardiology [address] [place], [place] [phone] Diagnosis: Coarctation of aorta [Q25.1] Cardiology Comment on above: Diagnosis: Coarctati on of aorta [Q25.1] Start: 10-02-2024 End: 10-02-2024 Patient encounter procedure 10/02/2024 12:45 PM EDT Office Visit Cardiology [address] [place] [id number] Diagnosis: Coarctation of aorta [Q25.1] Cardiology Comment on above: Diagnosis: Coarctati on of aorta [Q25.1] Start: 08-22-2024 [facility] Start: 08-22-2024 Seizure precautions [facility] Start: 07-21-2024 End: 10-20-2024 CBC W Auto Differential panel - Blood CBC + DIFF Lab Routine Hemophilia A (HCC) Anemia, blood loss Expected: 07/21/2024, Expires: 10/20/2024 [facility] Work Phone: Comment on above: Expected: 07/21/2024 , Expires: 10/20/2024 Start: 07-21-2024 End: 10-20-2024 Coagulation factor VIII activity actual/normal in Platelet poor plasma by Coagulation assay FACTOR VIII:C ASSAY Lab Routine Hemophilia A (HCC) Expected: 07/21/2024 (Approximate), Expires: 10/20/2024 [facility] Work Phone: Comment on above: Expected: 07/21/2024 (Approximate), Expires: 10/20/2024 Start: 07-21-2024 End: 10-20-2024 Ferritin [Mass/volume] in Serum or Plasma FERRITIN BLD Lab Routine Anemia, blood loss Expected: 07/21/2024 (Approximate), Expires: 10/20/2024 [facility] Work Phone: Comment on above: Expected: 07/21/2024 (Approximate), Expires: 10/20/2024 Start: 07-21-2024 End: 10-20-2024 Iron and Iron binding capacity panel - Serum or Plasma IRON + TIBC Lab Routine Anemia, blood loss Expected: 07/21/2024 (Approximate), Expires: 10/20/2024 [facility] Work Phone: Comment on above: Expected: 07/21/2024 (Approximate), Expires: 10/20/2024 Start: 07-17-2024 End: 07-17-2024 ambulatory 07/17/2024 10:00 AM EST Visit (SP) Office [facility] [address] [place], [place] [phone] Austen Blevins MD [address] [phone] 3yr ov (repeat labs) [facility] Comment on above: 3yr ov (repeat labs) Start: 05-05-2024 End: 05-05-2024 Patient encounter procedure 05/05/2024 10:30 AM EST Office Visit Cardiology [address] [place], [place] [phone] Congenital bicuspid aortic valve [Q23.81]; Aneurysm of ascending aorta without rupture (HCC) [I71.21]; Valvular heart disease [I38] Cardiology Comment on above: Congenital bicuspid aortic valve [Q23.81]; Aneurysm of ascending aorta without rupture (HCC) [I71.21]; Valvular heart disease [I38] Start: 05-05-2024 End: 05-05-2024 Patient encounter procedure 05/05/2024 8:20 AM EST Appointment Cat Scan [address] [place], [place] [phone] Lung nodules [R91.8] Cat Scan Comment on above: Lung nodules [R91.8] Start: 05-01-2024 End: 05-01-2024 Patient encounter procedure 05/01/2024 2:20 PM EST Office Visit [facility] [address] [place] [address] Vonnie Man APRN.CANCER CENTER DIRECTOR [address] [place] [address] transfer from [facility] Comment on above: transfer from [place] Start: 05-01-2024 End: 10-30-2024 Comprehensive metabolic 2000 panel - Serum or Plasma [facility] Comment on above: Expected: 05/01/2024 , Expires: 10/30/2024 Start: 05-01-2024 End: 10-30-2024 levETIRAcetam [Mass/volume] in Serum or Plasma [facility] Comment on above: Expected: 05/01/2024 , Expires: 10/30/2024 Start: 05-01-2024 End: 10-30-2024 LIPID PANEL, NONFASTING [facility] Work Phone: Comment on above: Expected: 05/01/2024 , Expires: 10/30/2024 Start: 01-23-2024 Influenza vaccination Influenza Vacc ine (#1) [facility] Start: 11-21-2023 Influenza vaccination Influenza Vacc ine (#1) [facility] Comment on above: Postponed from 01/22 (Declined at this time) Start: 04-27-2023 End: 06-27-2023 CBC W Auto Differential panel - Blood CBC + DIFF Lab Routine Hemophilia A (HCC) Anemia, blood loss Expected: 04/27/2023 (Approximate), Expires: 06/27/2023 [facility] Work Phone: Comment on above: Expected: 04/27/2023 (Approximate), Expires: 06/27/2023 Start: 04-27-2023 End: 06-27-2023 Coagulation factor VIII activity actual/normal in Platelet poor plasma by Coagulation assay FACTOR VIII:C ASSAY Lab Routine Hemophilia A (HCC) Expected: 04/27/2023 (Approximate), Expires: 06/27/2023 [facility] Work Phone: Comment on above: Expected: 04/27/2023 (Approximate), Expires: 06/27/2023 Start: 04-27-2023 End: 06-27-2023 Ferritin [Mass/volume] in Serum or Plasma FERRITIN BLD Lab Routine Anemia, blood loss Expected: 04/27/2023 (Approximate), Expires: 06/27/2023 [facility] Work Phone: Comment on above: Expected: 04/27/2023 (Approximate), Expires: 06/27/2023 Start: 04-27-2023 End: 06-27-2023 Iron and Iron binding capacity panel - Serum or Plasma IRON + TIBC Lab Routine Anemia, blood loss Expected: 04/27/2023 (Approximate), Expires: 06/27/2023 [facility] Work Phone: Comment on above: Expected: 04/27/2023 (Approximate), Expires: 06/27/2023 Start: 02-12-2023 End: 04-14-2023 CBC W Auto Differential panel - Blood CBC + DIFF Lab Routine Mild episode of recurrent major depressive disorder (HCC) Seizure disorder (HCC) Expected: 02/12/2023, Expires: 04/14/2023 [facility] Work Phone: Comment on above: Expected: 02/12/2023 , Expires: 04/14/2023 Start: 02-12-2023 End: 04-14-2023 Comprehensive metabolic 2000 panel - Serum or Plasma COMP METABOLIC PANEL Lab Routine Mild episode of recurrent major depressive disorder (HCC) Seizure disorder (HCC) Expected: 02/12/2023, Expires: 04/14/2023 [facility] Work Phone: Comment on above: Expected: 02/12/2023 , Expires: 04/14/2023 Start: 02-12-2023 End: 04-14-2023 levETIRAcetam [Mass/volume] in Serum or Plasma LEVETIRACETAM Lab Routine Seizure disorder (HCC) Expected: 02/12/2023, Expires: 04/14/2023 [facility] Work Phone: Comment on above: Expected: 02/12/2023 , Expires: 04/14/2023 Start: 02-12-2023 End: 04-14-2023 Lipid 1996 panel - Serum or Plasma LIPID PANEL BASIC Lab Routine Screening for lipid disorders Expected: 02/12/2023, Expires: 04/14/2023 [facility] Work Phone: Comment on above: Expected: 02/12/2023 , Expires: 04/14/2023 Start: 01-22-2023 Influenza vaccination C [facility] Start: 12-21-2022 End: 12-22-2023 Ct thorax w/o contrast material CT CHEST WO IVCON Radiology Routine Lung nodules Expected: 12/21/2022, Expires: 12/22/2023 [facility] Work Phone: Comment on above: Expected: 12/21/2022 , Expires: 12/22/2023 Start: 06-27-2022 Measurement of substance [facility] Start: 04-27-2022 End: 06-27-2022 Coagulation factor VIII activity actual/normal in Platelet poor plasma by Coagulation assay [facility] Work Phone: Comment on above: Expected: 04/27/2022 , Expires: 06/27/2022 Start: 02-08-2022 End: 02-07-2023 Mri any jt upper extremity w/o contrast matrl MRI ELBOW WO IVCON RT Radiology Routine Expected: 02/08/2022, Expires: 02/07/2023 [facility] Work Phone: Comment on above: Expected: 02/08/2022 , Expires: 02/07/2023 Start: 2022 Lipid 1996 panel - S janes or Plasma Lipid Screening [facility] Start: 2022 Lipid panel Lipid Screening [facility] Start: 2022 LIPID SCREEN LIPID SCREEN [facility] Start: 01-22-2022 Influenza vaccination C [facility] Start: 01-22-2021 Influenza vaccination INFLUENZA (#1) [facility] Start: 2014 HPV Vaccine (1 - 3-d ose SCDM series) HPV Vaccine (1 - 3-dose SCDM series) [facility] Start: 2006 Hepatitis B Vaccine (1 of 3 - 19+ 3-dose series) Hepatitis B Vaccine (1 of 3 - 19+ 3-dose series) [facility] Start: 2006 ONE PNEUMOVAX PRIOR TO AGE 65 ONE PNEUMOVAX PRIOR TO AGE 65 [facility] Start: 2005 Anxiety Screening Anxiety Screening [facility] Start: 1998 Urine microalbumin profile [facility] Start: 01-25-1992 COVID-19 VACCINE (1) COVID-19 VACCIN E (1) [facility] Start: 1987 COVID-19 VACCINE (#1) COVID-19 VACCI NE (#1) [facility] Start: 1987 HEPATITIS B (1 of 3 - 3-dose series) HEPATITIS B (1 of 3 - 3-dose series) [facility] Start: 1987 Hepatitis B Vaccine (1 of 3 - 3-dose series) Hepatitis B Vaccine (1 of 3 - 3-dose series) [facility] End: 05-31-2025 CT Chest WO contrast CT CHEST WO IVCON Radiology Routine Lung nodules 1 Occurrences starting 05/01/2024 until 05/31/2025 [facility] Comment on above: 1 Occurrences starti ng 05/01/2024 until 05/31/2025 CT Chest WO contrast CT CHEST WO IVCON Radiology Routine Lung nodules 05/05/2024 9:05 AM EST [facility] Work Phone: End: 05-15-2025 ECG COMPLETE ECG COMPLETE ECG Routine H/O aortic coarctation repair 1 Occurrences starting 05/15/2024 until 05/15/2025 [facility] Work Phone: Comment on above: 1 Occurrences starti ng 05/15/2024 until 05/15/2025 End: 05-01-2025 Echocardiography ECHO Cardiology Routine Congenital bicuspid aortic valve Aneurysm of ascending aorta without rupture (HCC) Valvular heart disease 1 Occurrences starting 05/01/2024 until 05/01/2025 [facility] Comment on above: 1 Occurrences starti ng 05/01/2024 until 05/01/2025 End: 05-15-2025 Echocardiography ECHO Cardiology Routine H/O aortic coarctation repair 1 Occurrences starting 05/15/2024 until 05/15/2025 [facility] Comment on above: 1 Occurrences starti ng 05/15/2024 until 05/15/2025 End: 02-09-2022 Mri any jt upper extremity w/o contrast matrl [facility] Work Phone: Comment on above: 1 Occurrences starti ng 02/09/2022 until 02/09/2022 Patient Education [facility] Work Phone: Patient referral [facility] Work Phone: XR Ankle - bilateral AP and Lateral and oblique XR ANKLE GENERAL 3V AP/LAT/OBL BILATERAL Radiology Routine Pain 12/20/2024 2:22 PM EDT [facility] Work Phone: [facility] Immunizations Immunization Date Immunization Notes Care Provider [facility] 05-01-2024 influenza, seasonal, injectable Vonnie Man [employer] KEEPER.C[facility]ER CENTER DIRECTOR Work Phone: [facility] 05-01-2024 influenza virus vacc ine, unspecified formulation Janneth [facility] Work Phone: [facility] 02-12-2023 tetanus toxoid, redu rosa diphtheria toxoid, and acellular pertussis vaccine, adsorbed NA Jacob PA-C Work Phone: [facility] 11-14-2012 tetanus toxoid, redu rosa diphtheria toxoid, and acellular pertussis vaccine, adsorbed NA Jacob PA-C Work Phone: [facility] 12-09-1999 measles, mumps and rubella virus vaccine Jeremias Fernandez MD Work Phone: [facility] 10-16-1992 diphtheria, tetanus toxoids and pertussis vaccine Jeremias Fernandez MD Work Phone: [facility] 08-15-1992 diphtheria, tetanus toxoids and pertussis vaccine Jeremias Fernandez MD Work Phone: [facility] 08-15-1992 trivalent poliovirus vaccine, live, oral Jeremias Fernandez MD Work Phone: [facility] 01-02-1991 tuberculin skin test ; purified protein derivative solution, intradermal Austen Blevins MD Work Phone: [facility] 10-16-1988 haemophilus influenz ae type b vaccine, HbOC conjugate Jeremias Fernandez MD Work Phone: [facility] 09-14-1988 measles, mumps and rubella virus vaccine Jeremias Fernandez MD Work Phone: [facility] 09-14-1988 trivalent poliovirus vaccine, live, oral Jeremias Fernandez MD Work Phone: [facility] 1987 diphtheria, tetanus toxoids and pertussis vaccine Jeremias Fernandez MD Work Phone: [facility] 1987 DTaP-Haemophilus influenzae type b conjugate vaccine Jeremias Fernandez MD Work Phone: [facility] 1987 trivalent poliovirus vaccine, live, oral Jeremias Fernandez MD Work Phone: [facility] 1987 diphtheria, tetanus toxoids and pertussis vaccine Jeremias Fernandez MD Work Phone: [facility] 1987 trivalent poliovirus vaccine, live, oral Jeremias Fernandez MD Work Phone: [facility] Payers Date Payer Category Payer Self-pay [id number] 2021 Medicaid [employer] [employer] [place] MED[place] [id number] 2021-[facility] [phone] [facility] [address] [place] [address] Medicaid [id number] 2021 Medicaid [id number] 2021 Medicaid [id number] 2019 Medicaid [employer]ICA[employer] [id number] 2019-Present [phone] [address] [place] [address] Medicaid [id number] Unknown [employer] [id number] Unknown PARAMOUNT ADV MC D *DO NOT USE* [id number] Unknown [id number] Social History Date Type Detail Facility Start: 09-17-2014 End: 04-23-2022 Tobacco smoking status NHIS Never smoked tobacco [facility] Start: 04-30-2021 End: 07-15-2022 Alcohol intake Current drinker of alcohol (finding) [facility] Start: 06-17-2020 History SDOH Alcohol Comment occasionally, once every 6 months [facility] Start: 1985 Sex Assigned At Not on file C [facility] Start: 09-07-2021 End: 09-17-2021 Exposure to SARS-CoV-2 (event) Unable to assess [facility] Start: 11-25-2021 End: 07-17-2022 Exposure to SARS-CoV-2 (event) Not sure [facility] Start: 09-17-2014 End: 04-23-2022 Tobacco use and exposure Smokeless tobacco non-user [facility] Start: 06-27-2022 Tobacco smoking stat us NHIS Unknown if ever smoked [facility] Start: 1985 Sex Assigned At Male [facility] Start: 07-17-2022 End: 10-10-2024 Alcohol intake Ex-drinker (finding) [facility] Start: 07-17-2022 End: 07-17-2024 History of Social function [facility] Start: 07-17-2022 End: 07-17-2024 Tobacco use panel [facility] Start: 04-24-2012 Adult Depression Screening Assessment 0 [facility] Start: 08-22-2024 Sex Male (finding) [facility] Medical Equipment Procedure Code Equipment Code Equipment Origin al Text Equipment Identifier Dates Cement Simplex P Tobramycin Bone Full Dose Radiopaque Preblend Sterile - [id number] Start: 01-09-2021 Graft Dura 2x2in Duragen + - [id number] Start: 07-17-2014 Graft Hwdvs Plat 8mm X 30cm - [id number] Start: 12-09-2009 Comment on above: Description: RSCA Graft Hwdvs Plat 28mm X 30cm - [id number] Start: 12-09-2009 Comment on above: Description: Asc aor ta Graft Hemashield Ramona 32mm Straight Tube Woven 2 Velour Collagen 30cm - [id number] Start: 09-19-2015 Head Bhr 50mm Femoral Resurfacing Hip - [id number] Start: 01-09-2021 Cup Bhr 56mm 50m m Acetabular Head Hip - [id number] Start: 01-09-2021 Implant Patch Pericardial - [id number] Start: 12-09-2009 Comment on above: Description: Maldoando bovine pericardial patch Implant Patch Pericardial - [id number] Start: 12-09-2009 Comment on above: Description: maldonado bovine pericardial patch Plate Cvr Bur Ho le Lp 14mm - [id number] Start: 07-17-2014 Plate Bn 12mm Cm f Ti 2 H Lp - [id number] Start: 12-31-2014 Plate Cvr Bur Ho le Lp 14mm - [id number] Start: 12-31-2014 Pin Crss Sd Scr 1.5x4mm - [id number] Start: 07-17-2014 Pin Crss Sd Scr 1.5x4mm - [id number] Start: 12-31-2014 Valve Ree-Maldonado Perimount 27mm Pericardial Aortic Bioprosthesis - [id number] Start: 09-19-2015 Functional Status Date Assessment Result Facility 06-18-2022 Are you deaf, or do you have serious difficulty hearing No 06/18/2022 12:09 PM Kiki Frederick, SHANTEL No [facility] 06-18-2022 Are you blind, or do you have serious difficulty seeing, even when wearing glasses No 06/18/2022 12:09 PM Kiki Frederick, SHANTEL No [facility] 06-18-2022 Do you have serious difficulty walking or climbing stairs No 06/18/2022 12:09 PM Kiki Frederick, SHANTEL No [facility] 06-18-2022 Do you have difficul ty dressing or bathing No 06/18/2022 12:09 PM Kiki Frederick, SHANTEL No [facility] 06-18-2022 Because of a physica l, mental, or emotional condition, do you have difficulty doing errands alone such as visiting a physician's office or shopping No 06/18/2022 12:09 PM Kiki Frederick, SHANTLE No [facility] Mental Status Date Assessment Result Facility 06-18-2022 Because of a physica l, mental, or emotional condition, do you have serious difficulty concentrating, remembering, or making decisions No 06/18/2022 12:09 PM Kiki Frederick, SHANTEL No [facility] Clinical Notes 01-18-2019 to 02-27-2025 Zak Bobby RPh - 2025 3:00 PM EDTPatient InstructionsPatient InstructionsVictorino Moeller PA-C - 12/20/2024 2:21 PM Namita Hernández RT([facility]) - 12/20/2024 2:15 PM EDTPatient Instructions Note Date & Type Note Facility 02-27-2025 Note HNO ID: [id number] Author: ZAK BOBBY RPh Service: ? Author Type: Pharmacist Type: Progress Notes Filed: 02/27/2025 16:37 Note Text: I attempted to reach the patient to conduct HF Medication Optimization virtual visit on two separate occassions today. Unable to reach patient. I left a voicemail requesting patient call back into [facility] Pharmacy Clinic ([phone]) to reschedule appointment. Also sent [employer] message. Tentatively rescheduled for 03/27 at 1430. Of note, patient is a 40M year old M previously diagnosed with HFrEF: EF 37% (09/2024) . The patient?s heart failure is managed by Dr. Steven. Last seen by HF PharmD on 01/24 at which time empagliflozin was initiated. Dilia Champion PharmD February 27, 2025 My additions to the note are underlined. Zak Bobby, ShavonD, [facility] Heart Failure and Heart Transplant Clinical Process Controller February 27, 2025 [facility] 2025 History of Present illness Narrative Heart and Vascular [facility] Heart Failure Medication Optimization Clinic OUTPATIENT VISIT DATE 2025 OUTPATIENT VISIT TYPE Established Patient Patient consents to pharmacy consult agreement. Sunita Harrington is a 39 year old male previously diagnosed with HFrEF: EF 37% (09/2024) . The patient s heart failure is managed by Dr. Steven who referred the patient to the ambulatory HF pharmacy clinic for medication reconciliation, education, and titration of all HF medications. Last seen by HF PharmD on 12/13 at which time no medication changes were made, awaiting repeat BMP following losartan initiation. Today, the patient presents via virtual visit. Visit conducted with patient's motherDeedee Interval Events: 0 ED visits or hospitalizations since last seen by HF pharmacist 12/21 Scr 1.02, K 4.6 12/22 HF PharmD interim check in: started metoprolol succinate 12.5 mg daily 12/29 Called into pharmacy clinic reporting BP. May have been drawn soon after activity. Given BP, if not experiencing dizziness, increase losartan to 75 mg daily and call back with BP readings 12/26: 135/97, 116/86 12/27: 166/108 (had not been sitting, had been moving around), 135/86 12/28: 126/90, 167/90 (was moving around) 12/29: 161/86, 141/98 Reports increased losartan to 75 mg daily ~2.5 weeks ago Reports feeling pretty good PMH: PAST MEDICAL HISTORY Diagnosis Date Coarctation of aorta (preductal) (postductal) ([facility]) Coarctation of aorta Congenital bicuspid aortic valve ([facility]) 01/02/2015 Monitor: pt will follow outpatient. 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 Based on current guidelines*, a repeat follow-up unenhanced low-dose CT can be obtained in 12 months at clinical discretion. Plan: Pt is aware, follow up w/ local MD. Post-op pain 09/09/2015 History: Pre-op h/o back pain treated w/ oxycodone 20mg q 6hrs prn and MS contin 30mg tid. MRI 09/08 no evidence of discitis or osteomyelitis. Assessment: Verbalizes adequate pain relief on preop regimen. Plan: Continue Tylenol, lidoderm, and preop regimen of Oxycodone 20mg q 6hrs prn and MS Contin 30mg tid Pulmonary HTN ([facility]) Seizure ([facility]) 09/26/2015 History: H/o seizures, on keppra preop Assessment: 09/20/15 post op seizure in ICU. No further events Plan: Continue keppra. Follow up w/ Neurology after discharge. Stroke ([facility]) 01/2015 2 x Brain hemorrhage (07/2014, 11/2014) Thoracic ascending aortic aneurysm Tooth decay 09/26/2015 History: Preop dental evaluation revealed gross decay and chronic abscess of tooth #2 Assessment: Dental recommended extraction of tooth #2. Plan: After clearance from ID, CTS, Hematology, pt underwent extraction #2 on 09/27/15. Continue amicar x 1 more dose today per Hematology. ROS: Denies shortness of breath at rest and on exertion (orthopnea, PND, bendopnea, wheezing/coughing). Denies symptoms of edema (abdominal, early satiety, lower extremity). Denies CP, palpitations, DALY, blurred vision. Denies dizziness, lightheadedness, syncope. Hasn't noticed any dizziness lately Denies N/V, diarrhea, abdominal pain. Reports potential medication adverse effects. Fatigue - maybe a bit better DIET and EXERCISE: Sodium restriction: No - doesn't monitor. Generally no added salt. Peanut butter and jelly sandwiches make up most of diet. Fluid restriction: No - drinks a lot of water per mom - drinks bottles of water (primarily unless occasional energy drinks). Not sure on quantity Exercise: Hasn't been doing much because of dizziness. If does too much, his ankles bleed, increasing pain in ankles (has follow up later this month). Still not doing much exercise with dizziness improved. SOCIAL HISTORY: Tobacco use: No EtOH: No Illicit drugs: Marijuana for pain control, in pain 24 hours a day (previously using opiates for pain and developed dependence) MEDICATIONS: Pill bottles are not present. Adherence: 0 missed doses in the past week. Took meds this AM. Pharmacy: [id number] [place] [address] - [phone] [facility] Rx coverage: Yes Medication Affordability: Yes Organization system: keeps them in a box in his bedroom (covered) Administration times: morning/night - 0900/2100 ALLERGIES Allergen Reactions Asa [Salicylates] Intolerance Contrast Dye Other: See Comments History of contrast induced nephropathy-Per patient is allergic to CT DYE Nsaids (Non-Steroid* Other: See Comments Other reaction(s): Other Medication List Medication Directions Comments Action/Plan FLUoxetine (PROZAC) 20 mg capsule Take 1 capsule by mouth once daily. Take with 40 mg dose for total daily dose of 60 mg. FLUoxetine (PROZAC) 40 mg capsule Take 1 capsule by mouth once daily. FVIII rec,B-dom trunc peg-exei (ESPEROCT) 2,000 (+/-) unit solr Inject 6,000 Units intravenously every 4 Days. levETIRAcetam (KEPPRA) 750 mg tablet Take 2 tablets by mouth two times a day. losartan (COZAAR) 50 mg tablet Take 1 tablet by mouth once daily. Taking 75 mg daily Update medication list metoprolol succinate ER (TOPROL XL) 25 mg 24 hr tablet Take 0.5 tablets by mouth once daily. Taking as directed midazolam (NAYZILAM) 5 mg/spray (0.1 mL) nasal spray Use 1 spray in the nose as needed for seizures lasting longer than 3 minutes (for convulsions) for up to 180 days. May repeat dose in alternate nostril after 10 minutes based on response and tolerability. OTC s: N/A. Acetaminophen as needed for pain Herbals: N/A VITALS: There were no vitals taken for this visit. HOME BLOOD PRESSURE AND PULSE READINGS: Blood pressure (mmHg): Starting to monitor, checks twice a week in the morning or afternoon 135/86 120/71 144/71 Heart rate (bpm): 102, 93, 67 Weight: did not assess - last visit 255 lbs Last BP 10/10/24 : 120/78 10/09/24 : 117/69 07/17/24 : 137/88 05/01/24 : 128/86 Last Pulse 10/10/24 : 78 10/09/24 : 71 07/17/24 : 100 05/01/24 : 91 Last Wt 10/10/24 : 116.1 kg (256 lb) 10/09/24 : 116.1 kg (256 lb) 07/17/24 : 111.1 kg (245 lb) 05/01/24 : 108 kg (238 lb) LABS BMP: Glucose 77 12/21/2024 BUN 12 12/21/2024 Creatinine (POCT) 1.02 12/21/2024 Sodium 140 12/21/2024 Potassium 4.6 12/21/2024 Chloride 101 12/21/2024 CO2 Content, Venous 28 12/21/2024 Protein, Total 7.6 05/01/2024 Albumin 4.5 05/01/2024 Calcium 9.5 12/21/2024 Alkaline Phosphatase 78 05/01/2024 Bilirubin, Total 0.7 05/01/2024 AST 18 05/01/2024 ALT 20 05/01/2024 NT Pro BNP Date Value Ref Range Status 09/09/2015 2,060 (H) <125 pg/mL Final No results found for: DIGOXIN CrCl cannot be calculated (Unknown ideal weight.). * I have personally reviewed all lab testing. PHARMACOTHERAPY ASSESSMENT and PLAN: ASSESSMENT/PLAN: 1. Systolic dysfunction - ICD9: 429.9, ICD10: I51.9 (primary diagnosis) The patient is doing well and heart failure symptoms are stable. Patient denies symptoms related to hypotension, bradycardia, or hypervolemia. Patient is currently adherent and tolerating all HF medications, as indicated below. Guideline Directed Medical Therapy Most recent GDMT score: 2 MAYI/ARB/ARNI YES - losartan Dose titration in progress Beta Jimmy YES - metoprolol succinate ER Dose titration in progress Aldosterone antagonist NO To be addressed SGLT2i NO To be addressed Hydralazine/Isosorbide Dinitrate NO Not indicated Ivabradine NO Not indicated Patient's BP and HR are currently variable, some above goal while being on 2 pillars of HF guideline-directed medical therapies. Repeat labs drawn following losartan initiation are stable. Sunita's previous dizziness has resolved. Discussed 4 pillars, purposes, stepwise approach to get on all 4 and titrate to the goal doses. Discussed benefits/AE of SGLT2i, through shared decision making, will start empagliflozin ($0) with repeat labs in a few weeks. In the future, may consider initiation of MRA or further titration of BB/ARB pending repeat labs and home BP/HR. ARNI test script failed, unclear if requires PA. Previously confirmed with Dr. Steven considered stage C given interval exertional fatigue. CONTINUE medications as prescribed START empagliflozin 10 mg daily Call Heart Failure Pharmacy Clinic [phone] (Wednesday through Wednesday between 8AM-4PM, leave a voicemail via option 1) if any new dizziness, lightheadedness, or SBP <90 Repeat BMP ~10/3 CONTINUE monitoring BP/HR and weight at home. Next appointment with Dr. Steven to be scheduled (last seen 10/09/24) 2. Encounter for medication review and counseling - ICD9: V65.49, ICD10: Z71.89 I reviewed the new medications and indications, how to take them, and what to expect in terms of side effects. We also reviewed medications that should no longer be taken, as well as life style modifications including diet and exercise. I recommend use of a pillbox for improved adherence. Interventions made during pharmacy visit: SGLT-2 inhibitor initiated, Medication reconciliation, Medication education, and Other: lab monitoring The patient verbalized understanding of the instructions. Next pharmacy appointment scheduled on 02/27 Zak Bobby, ShavonD, [facility] Heart Failure and Heart Transplant Clinical Process Controller [phone] documented in this encounter [facility] 2025 Instructions Zak Bobby RPh - 2025 3:00 PM EDT Tj Yuan, it was nice speaking with your Mom today. Below is a summary of what we discussed. CONTINUE medications as prescribed START empagliflozin 10 mg daily Call Heart Failure Pharmacy Clinic [phone] (Wednesday through Wednesday between 8AM-4PM, leave a voicemail via option 1) if any new dizziness, lightheadedness, or SBP <90 Repeat BMP ~02/23 CONTINUE monitoring BP/HR and weight at home. Next pharmacy check in 02/27 documented in this encounter [facility] 2025 Note HNO ID: [id number] Author: ZAK BOBBY RPh Service: ? Author Type: Pharmacist Type: Progress Notes Filed: 2025 15:42 Note Text: Heart and Vascular [facility] Heart Failure Medication Optimization Clinic OUTPATIENT VISIT DATE 2025 OUTPATIENT VISIT TYPE Established Patient Patient consents to pharmacy consult agreement. Sunita Harrington is a 39 year old male previously diagnosed with HFrEF: EF 37% (09/2024) . The patient?s heart failure is managed by Dr. Steven who referred the patient to the ambulatory HF pharmacy clinic for medication reconciliation, education, and titration of all HF medications. Last seen by HF PharmD on 12/13 at which time no medication changes were made, awaiting repeat BMP following losartan initiation. Today, the patient presents via virtual visit. Visit conducted with patient's mother, Deedee Interval Events: 0 ED visits or hospitalizations since last seen by HF pharmacist 12/21 Scr 1.02, K 4.6 12/22 HF PharmD interim check in: started metoprolol succinate 12.5 mg daily 12/29 Called into pharmacy clinic reporting BP. May have been drawn soon after activity. Given BP, if not experiencing dizziness, increase losartan to 75 mg daily and call back with BP readings 12/26: 135/97, 116/86 8/6: 166/108 (had not been sitting, had been moving around), 135/86 8: 126/90, 167/90 (was moving around) 12/29: 161/86, 141/98 Reports increased losartan to 75 mg daily ~2.5 weeks ago Reports feeling pretty good PMH: PAST MEDICAL HISTORY Diagnosis Date Coarctation of aorta (preductal) (postductal) ([facility]) Coarctation of aorta Congenital bicuspid aortic valve ([facility]) 01/02/2015 Monitor: pt will follow outpatient. 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 Based on current guidelines*, a repeat follow-up unenhanced low-dose CT can be obtained in 12 months at clinical discretion. Plan: Pt is aware, follow up w/ local MD. Post-op pain 09/09/2015 History: Pre-op h/o back pain treated w/ oxycodone 20mg q 6hrs prn and MS contin 30mg tid. MRI 09/08 no evidence of discitis or osteomyelitis. Assessment: Verbalizes adequate pain relief on preop regimen. Plan: Continue Tylenol, lidoderm, and preop regimen of Oxycodone 20mg q 6hrs prn and MS Contin 30mg tid Pulmonary HTN ([facility]) Seizure ([facility]) 09/26/2015 History: H/o seizures, on keppra preop Assessment: 09/20/15 post op seizure in ICU. No further events Plan: Continue keppra. Follow up w/ Neurology after discharge. Stroke ([facility]) 01/2015 2 x Brain hemorrhage (07/2014, 11/2014) Thoracic ascending aortic aneurysm Tooth decay 09/26/2015 History: Preop dental evaluation revealed gross decay and chronic abscess of tooth #2 Assessment: Dental recommended extraction of tooth #2. Plan: After clearance from ID, CTS, Hematology, pt underwent extraction #2 on 09/27/15. Continue amicar x 1 more dose today per Hematology. ROS: Denies shortness of breath at rest and on exertion (orthopnea, PND, bendopnea, wheezing/coughing). Denies symptoms of edema (abdominal, early satiety, lower extremity). Denies CP, palpitations, DALY, blurred vision. Denies dizziness, lightheadedness, syncope. Hasn't noticed any dizziness lately Denies N/V, diarrhea, abdominal pain. Reports potential medication adverse effects. Fatigue - maybe a bit better DIET and EXERCISE: Sodium restriction: No - doesn't monitor. Generally no added salt. Peanut butter and jelly sandwiches make up most of diet. Fluid restriction: No - drinks a lot of water per mom - drinks bottles of water (primarily unless occasional energy drinks). Not sure on quantity Exercise: Hasn't been doing much because of dizziness. If does too much, his ankles bleed, increasing pain in ankles (has follow up later this month). Still not doing much exercise with dizziness improved. SOCIAL HISTORY: Tobacco use: No EtOH: No Illicit drugs: Marijuana for pain control, in pain 24 hours a day (previously using opiates for pain and developed dependence) MEDICATIONS: Pill bottles are not present. Adherence: 0 missed doses in the past week. Took meds this AM. Pharmacy: [facility] #[id number] [place] [address] - [address] [facility] Rx coverage: Yes Medication Affordability: Yes Organization system: keeps them in a box in his bedroom (covered) Administration times: morning/night - 0900/2100 ALLERGIES Allergen Reactions Asa [Salicylates] Intolerance Contrast Dye Other: See Comments History of contrast induced nephropathy-Per (more content not included)... [facility] 2025 Note HNO ID: [id number] Author: JANNETH THOMAS [facility] Service: ? Author Type: Pharmacist Type: Progress Notes Filed: 02/20/2025 16:08 Note Text: Patient's mom, Deedee, called to report patient has been taking metoprolol XL 25 mg once daily and losartan 50 mg once daily (he never increased to 1.5 tablets of losartan). I.e. increased metoprolol instead of losartan. Confirmed started and taking empagliflozin 10 mg once daily. Feeling good, no dizziness, lightheadedness, or fatigue. BP reportedly good - 120/70 on average. Will increase losartan as previously planned since visit scheduled in 1 week. Labs in process today. Plan: Continue metoprolol XL 25 mg once daily - Refill sent Increase losartan to 75 mg once daily Pharmacy: [facility] Next pharmacy appointment 02/27. Reason for telephone encounter: Medication Question Time spent: 6-10 minutes Janneth Thomas PharmD, [facility] Heart Failure and Heart Transplant Clinical Process Controller [phone] February 20, 2025 4:03 PM [facility] 2025 Note HNO ID: [id number] Author: JANNETH THOMAS [facility] Service: ? Author Type: Pharmacist Type: Progress Notes Filed: 02/21/2025 15:00 Note Text: Glucose 91 02/20/2025 BUN 28 02/20/2025 Creatinine (POCT) 1.25 02/20/2025 Sodium 137 02/20/2025 Potassium 4.3 02/20/2025 Chloride 98 02/20/2025 CO2 Content, Venous 26 02/20/2025 Protein, Total 7.6 05/01/2024 Albumin 4.5 05/01/2024 Calcium 9.5 02/20/2025 Alkaline Phosphatase 78 05/01/2024 Bilirubin, Total 0.7 05/01/2024 AST 18 05/01/2024 ALT 20 05/01/2024 NT Pro BNP Date Value Ref Range Status 09/09/2015 2,060 (H) <125 pg/mL Final No results found for: DIGOXIN CrCl cannot be calculated (Unknown ideal weight.). Scr/BUN increased since starting Jardiance. Scr increase within reason of what is expected of SGLT2i. Called Deedee, she reports Sunita is still drinking lots of water. Recommended increase fluid intake over next week leading into next HF Pharmacy appt. Next pharmacy appointment 02/27. Reason for telephone encounter: Laboratory Results Time spent: 0-5 minutes Janneth Thomas PharmD, [facility] Heart Failure and Heart Transplant Clinical Process Controller [phone] February 21, 2025 2:58 PM [facility] 12-20-2024 Instructions Victorino Moeller PA-C - 12/20/2024 2:53 PM EDT Tennis Shoes: Scott Moore, New Balance, Shaun, ON Fajardo, Asics, Ryka, Celaya, Vionic, Dansko, Kerri, B Zees Mens Dress Shoe: Bertrand Driscoll, Jane Manning, Healthyfeet, Vionic Work Boots: [place], Orthofeet, Hoka, Shaun, Ariat Groundbreaker Paulette Boots SHOE STORES: Tail, Exchange Lab, Arch Biopartnerset Feet; Foot Solutions; The Trade Desk Good Feet PawSpot, Australian Heelers, Mar-Trudi Shoes documented in this encounter [facility] 12-20-2024 Note HNO ID: [id number] Author: VICTORINO MOELLER PA-C Service: ? Author Type: Physician Retail Business Manager Type: Progress Notes Filed: 12/20/2024 15:36 Note Text: PROVIDER: GUILLERMO Bailey of the Right Ankle and Juan Manuel of the Left Ankle HPI: Sunita Harrington is a 39-year-old male presenting with chronic bilateral ankle pain. Sunita reports lifelong bilateral ankle pain, which he attributes to arthritis. He has undergone bilateral ankle arthroscopies twice, the first at age 12, to clean up the joints. He experiences significant pain after prolonged walking, which persists into the following day. He is unsure if one ankle is more affected than the other but notes that he tends to put more weight on his left side due to a history of hip surgery. He has a history of hemophilia A, CVA, seizures, SAH/ICH. Sunita has tried compression ankle braces and received steroid injections in his ankles, though without relief. 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 He denies any history of hemophilia or other bleeding disorders. 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 Arthritis of both ankles (M19.071) Chronic bilateral ankle arthritis with limited range of motion and presence of bone spurs. Previous arthroscopic surgeries on both ankles twice. Discussed that further debridement may not be effective due to reduced cartilage and potential for increased pain from xbia-yv-oqdn contact. - Recommended wearing stiff-soled shoes or high-top boots like hiking boots for support. - Provided a list of suitable shoe options. - Fitted for bilateral ASO ankle braces to provide additional structural support. - Discussed risks and benefits of steroid injections; patient had previous injections with no significant relief. 2. Hemophilia (HCC) (D66) No current bleeding issues reported. Discussed potential complications of surgery due to bleeding risks. 3. History of CVA (cerebrovascular accident) (Z86.73) History of CVA with residual memory difficulties. Detailed instructions were reviewed with the patient and all questions were answered in detail. Patient voiced understanding and compliance with the above plan. We discussed emergent need to return to the express care or go to the emergency department. We discussed red flags associated with this condition and emergent treatment if they present. I spent a total of 30 minutes on the date of the service which included preparing to see the patient, [id number] patient care, completing clinical documentation, obtaining and/or reviewing separately obtained history, performing a medically appropriate examination, counseling and educating the patient/family/caregiver, ordering medications, tests, or procedures, communicating with other HCPs (not separately reported), independently interpreting results (not separately reported), and communicating results to the patient/family/caregiver. PAIN EVALUATION 12/18/2024 1836 12/20/2024 1421 Pain Location: Ankle-Right Ankle-Right left ankle Description: Sharp;Stabbing;Stiffness -- Duration Units: Years Years Frequency: Continuous Continuous Intervention/Comfort measure: Relaxation;Cold -- PHYSICAL FINDINGS: Vitals: There were no vitals taken for this visit. There were no vitals taken for this visit. Patient's vitals and nursing notes were reviewed. General appearance: healthy, alert, well hydrated, pleasant, no distress. Cardiovascular: no signs of upper or lower extremity edema Respiratory: no respiratory distress, no audible wheezing, no labored breathing Psychiatric: mood and affect are appropriate Neurologic: Alert and oriented x 3 and Normal speech. MUSCULOSKELETAL EXAMINATION: Gait: antalgic gait Inspection: Swelling: chronic bilateral ankles. Redness: no. Ecchymosis: no Palpation: Tender to bilateral anterior ankle ROM AND Strength: Dorsiflexion: significantly limit secondary to arthritis Plantar flexion: Full A/PROM noted with full muscle strength bilaterally Inversion: Full A/PROM noted with full muscle strength bilaterally. Eversion: Full A/PROM noted with full muscle strength bilaterally. Distal Neurological: Intact to light touch Pulse: 2+ DP and PT. QUARRY EQUIPMENT OPERATOR 2 sec Specialized Tests: There is no warmth, erythema, swelling or pain noted on examination of the bilateral calf areas. IMAGING: (Discussed with Dr. Fernando Rivera) Final results and radiologist's interpretation, available in the [facility] health record. Images were reviewed with the patient/family members in the office today. My personal interpretation of the performed imaging is bilateral talar dome insufficiency, chronic tibiotalar joint degeneration. REVIEW OF SYSTEMS: The following eleme (more content not included)... [facility] 12-20-2024 History of Present illness Narrative Images from the original note were not included. PROVIDER: GUILLERMO Bailey of the Right Ankle and Juan Manuel of the Left Ankle HPI: Sunita Harrington is a 39-year-old male presenting with chronic bilateral ankle pain. Sunita reports lifelong bilateral ankle pain, which he attributes to arthritis. He has undergone bilateral ankle arthroscopies twice, the first at age 12, to clean up the joints. He experiences significant pain after prolonged walking, which persists into the following day. He is unsure if one ankle is more affected than the other but notes that he tends to put more weight on his left side due to a history of hip surgery. He has a history of hemophilia A, CVA, seizures, SAH/ICH. Sunita has tried compression ankle braces and received steroid injections in his ankles, though without relief. 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 He denies any history of hemophilia or other bleeding disorders. 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 Arthritis of both ankles (M19.071) Chronic bilateral ankle arthritis with limited range of motion and presence of bone spurs. Previous arthroscopic surgeries on both ankles twice. Discussed that further debridement may not be effective due to reduced cartilage and potential for increased pain from thfa-ok-dkmo contact. - Recommended wearing stiff-soled shoes or high-top boots like hiking boots for support. - Provided a list of suitable shoe options. - Fitted for bilateral ASO ankle braces to provide additional structural support. - Discussed risks and benefits of steroid injections; patient had previous injections with no significant relief. 2. Hemophilia (HCC) (D66) No current bleeding issues reported. Discussed potential complications of surgery due to bleeding risks. 3. History of CVA (cerebrovascular accident) (Z86.73) History of CVA with residual memory difficulties. Detailed instructions were reviewed with the patient and all questions were answered in detail. Patient voiced understanding and compliance with the above plan. We discussed emergent need to return to the express care or go to the emergency department. We discussed red flags associated with this condition and emergent treatment if they present. I spent a total of 30 minutes on the date of the service which included preparing to see the patient, [id number]-[id number] patient care, completing clinical documentation, obtaining and/or reviewing separately obtained history, performing a medically appropriate examination, counseling and educating the patient/family/caregiver, ordering medications, tests, or procedures, communicating with other HCPs (not separately reported), independently interpreting results (not separately reported), and communicating results to the patient/family/caregiver. PAIN EVALUATION 12/18/2024 1836 12/20/2024 1421 Pain Location: Ankle-Right Ankle-Right left ankle Description: Sharp;Stabbing;Stiffness -- Duration Units: Years Years Frequency: Continuous Continuous Intervention/Comfort measure: Relaxation;Cold -- PHYSICAL FINDINGS: Vitals: There were no vitals taken for this visit. There were no vitals taken for this visit. Patient's vitals and nursing notes were reviewed. General appearance: healthy, alert, well hydrated, pleasant, no distress. Cardiovascular: no signs of upper or lower extremity edema Respiratory: no respiratory distress, no audible wheezing, no labored breathing Psychiatric: mood and affect are appropriate Neurologic: Alert and oriented x 3 and Normal speech. MUSCULOSKELETAL EXAMINATION: Gait: antalgic gait Inspection: Swelling: chronic bilateral ankles. Redness: no. Ecchymosis: no Palpation: Tender to bilateral anterior ankle ROM & Strength: Dorsiflexion: significantly limit secondary to arthritis Plantar flexion: Full A/PROM noted with full muscle strength bilaterally Inversion: Full A/PROM noted with full muscle strength bilaterally. Eversion: Full A/PROM noted with full muscle strength bilaterally. Distal Neurological: Intact to light touch Pulse: 2+ DP and PT. QUARRY EQUIPMENT OPERATOR 2 sec Specialized Tests: There is no warmth, erythema, swelling or pain noted on examination of the bilateral calf areas. IMAGING: (Discussed with Dr. Fernando Rivera) Final results and radiologist's interpretation, available in the [facility] health record. Images were reviewed with the patient/family members in the office today. My personal interpretation of the performed imaging is bilateral talar dome insufficiency, chronic tibiotalar joint degeneration. REVIEW OF SYSTEMS: The following elements were reviewed and are negative except for mentioned below: general body habitus, skin, ENT, pulmonary, cardiac, gastrointestinal, abdominal/, musculoskeletal, endocrine, hematologic and neurologic. 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 (Hcc) Dental Caries On Smooth Surface Penetrating into Pulp Retained Dental Root History of Left acute arterial ischemic stroke, MCA (middle cerebral artery) (HCC) Depression H/O Aortic Coarctation Repair Summary Back Pain Systolic Dysfunction Partial Epilepsy With Impairment of Consciousness, 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 ANKLE SURGERY HX Bilateral x 2-3 each ankle, clean-outs CONGENITAL HEART SURGERY 05/24/1988 repair coarctation aorta CRANIOT TEMPORAL LOBE W/O ELECTROCORTICOGRAPHY Right 06/2014 CRANIOTOMY FOR LOBOTOMY Right 12/2014 Frontal HEART SURGERY HX 2016 re-do CTS HIP SURGERY HX Left 2003 KNEE SURGERY HX Left PICC LINE INSERT/CONSULT 01/08/2015 PICC LINE INSERT/CONSULT 02/05/2015 SHX AORTIC STENT 05/24/2005 aortic stenting secondary to re-stenosis FAMILY HX: FAMILY HISTORY Problem Relation Age of Onset Hypertension Father age 48 None Mother age 45 No Ocular Disease Other Seizures No Family History SOCIAL: Social History Tobacco Use Smoking status: Never Smokeless tobacco: Never Vaping Use Vaping status: Never Used Substance Use Topics Alcohol use: Not Currently Comment: occasionally, once every 6 months Drug use: Yes Types: Marijuana, Opiates Comment: former uses; Last use of Opiates around 2019 ALLERGY: Asa [Salicylates], Contrast Dye, and Nsaids (Non-Steroidal Anti-Inflammatory Drug) MEDS: Current Outpatient Medications Medication Sig FVIII rec,B-dom trunc peg-exei (ESPEROCT) 2,000 (+/-) unit solr Inject 6,000 Units intravenously every 4 Days. sodium chloride 0.9 %, flush, (BD POSIFLUSH NORMAL SALINE 0.9) syringe Inject 5-10 mL intravenously as directed. levETIRAcetam (KEPPRA) 750 mg tablet Take 2 tablets by mouth two times a day. midazolam (NAYZILAM) 5 mg/spray (0.1 mL) nasal spray Use 1 spray in the nose as needed for seizures lasting longer than 3 minutes (for convulsions) for up to 180 days. May repeat dose in alternate nostril after 10 minutes based on response and tolerability. losartan (COZAAR) 50 mg tablet Take 1 tablet by mouth once daily. FLUoxetine (PROZAC) 40 mg capsule Take 1 capsule by mouth once daily. FLUoxetine (PROZAC) 20 mg capsule Take 1 capsule by mouth once daily. Take with 40 mg dose for total daily dose of 60 mg. No current facility-administered medications for this visit. I have confirmed and edited as necessary, the PFSH and ROS obtained by others. Thank you for allowing me to participate in your care! Victorino Moeller PA-C, [facility] Department of Orthopaedics Foot and Ankle Surgery Recording using SPIL G[employer] software for draft documentation of the visit was discussed with the patient/authorized contact representative; all questions welcomed and answered. Patient/authorized contact representative agreed to proceed documented in this encounter [facility] 12-20-2024 History of Present illness Narrative Radiology Service Progress Note PATIENT NAME: Sunita Harrington DATE OF SERVICE: December 20, 2024 TIME: 2:14 PM PATIENT IDENTITY VERIFICATION COMPLETED USING TWO (2) IDENTIFIERS: Name and Date of confirmed by patient verbally. FALL SCREENING: Has the patient had 2 falls in the last year or 1 fall with injury or currently using an Ambulatory Assistive Device (Walker, Cane, Wheelchair, Crutches, etc.)? No PATIENT GENDER DATA: Assigned male at PATIENT RELEVANT IMPLANT DATA REVIEWED: Not Applicable PATIENT PRESENTS WITH AN IMPLANTABLE OR ATTACHED PARTS SALES MANAGER: No RADIOLOGY DEPARTMENT: General X-ray: Exam(s) Completed: Lower Extremity X-Ray(s): Ankle, Bilateral and Wt. Bearing PERIPHERAL IV DATA: Not applicable SIGNED BY: RT Any(R) December 20, 2024 2:14 PM documented in this encounter [facility] 12-20-2024 Note HNO ID: [id number] Author: МАРИЯ DUDLEY, Zechariah Service: Pharmacy Author Type: Time Checker Type: Plan of Care Filed: 02/27/2025 13:15 Note Text: Reason for test claim: Cardiology Entresto (sacubitril/valsartan) Medication: Entresto 24 mg - 26 mg tablets Qty: 60 tablets Day supply: 30 days Cost on Insurance: $0.00 Does patient have a deductible? No No - Patient has government/federal insurance and is ineligible to use copay card Total number of mariscal checks: 1 If prior authorization is required, please send medication to designated pharmacy 24-48 hours in advance. Any questions, please reach out the medication enrollment coordinator. Thank you. (Prices may vary at different pharmacy locations, this is the cost at [facility] on February 27, 2025 ). [facility] 12-20-2024 Note HNO ID: [id number] Author: NAMITA THOMAS RT(R) Service: Radiology Author Type: Technologist Type: Progress Notes Filed: 12/20/2024 14:17 Note Text: Radiology Service Progress Note PATIENT NAME: Sunita Harrington DATE OF SERVICE: December 20, 2024 TIME: 2:14 PM PATIENT IDENTITY VERIFICATION COMPLETED USING TWO (2) IDENTIFIERS: Name and Date of confirmed by patient verbally. FALL SCREENING: Has the patient had 2 falls in the last year or 1 fall with injury or currently using an Ambulatory Assistive Device (Walker, Cane, Wheelchair, Crutches, etc.)? No PATIENT GENDER DATA: Assigned male at PATIENT RELEVANT IMPLANT DATA REVIEWED: Not Applicable PATIENT PRESENTS WITH AN IMPLANTABLE OR ATTACHED PARTS SALES MANAGER: No RADIOLOGY DEPARTMENT: General X-ray: Exam(s) Completed: Lower Extremity X-Ray(s): Ankle, Bilateral and Wt. Bearing PERIPHERAL IV DATA: Not applicable SIGNED BY: RT Any(R) December 20, 2024 2:14 PM [facility] 12-13-2024 History of Present illness Narrative Heart and Vascular [place] [facility] Heart Failure Medication Optimization [facility] OUTPATIENT VISIT DATE December 13, 2024 OUTPATIENT VISIT TYPE Established Patient Patient consents to pharmacy consult agreement. Sunita Harrington is a 39 year old male previously diagnosed with HFrEF: EF 37% (09/2024) . The patient s heart failure is managed by Dr. Steven who referred the patient to the ambulatory HF pharmacy clinic for medication reconciliation, education, and titration of all HF medications. Last seen by HF PharmD on 11/14 at which time no medication changes were made. Today, the patient presents via virtual visit. Visit conducted with patient's mother, Deedee Interval Events: 0 ED visits or hospitalizations since last seen by HF pharmacist No repeat labs - forgot, will plan to go soon Feeling better with losartan, some dizzy spells, but have improved significantly. PMH: PAST MEDICAL HISTORY Diagnosis Date Coarctation of aorta (preductal) (postductal) (HCC) Coarctation of aorta Congenital bicuspid aortic valve (HCC) 01/02/2015 Monitor: pt will follow outpatient. 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 Based on current guidelines*, a repeat follow-up unenhanced low-dose CT can be obtained in 12 months at clinical discretion. Plan: Pt is aware, follow up w/ local MD. Post-op pain 09/09/2015 History: Pre-op h/o back pain treated w/ oxycodone 20mg q 6hrs prn and MS contin 30mg tid. MRI 09/08 no evidence of discitis or osteomyelitis. Assessment: Verbalizes adequate pain relief on preop regimen. Plan: Continue Tylenol, lidoderm, and preop regimen of Oxycodone 20mg q 6hrs prn and MS Contin 30mg tid Pulmonary HTN (HCC) Seizure ([facility]) 09/26/2015 History: H/o seizures, on keppra preop Assessment: 09/20/15 post op seizure in ICU. No further events Plan: Continue keppra. Follow up w/ Neurology after discharge. Stroke ([facility]) 01/2015 2 x Brain hemorrhage (07/2014, 11/2014) Thoracic ascending aortic aneurysm Tooth decay 09/26/2015 History: Preop dental evaluation revealed gross decay and chronic abscess of tooth #2 Assessment: Dental recommended extraction of tooth #2. Plan: After clearance from ID, CTS, Hematology, pt underwent extraction #2 on 09/27/15. Continue amicar x 1 more dose today per Hematology. ROS: Denies shortness of breath at rest and on exertion (orthopnea, PND, bendopnea, wheezing/coughing). Denies symptoms of edema (abdominal, early satiety, lower extremity). Denies CP, palpitations, DALY, blurred vision. Reports dizziness, lightheadedness, syncope. Dizziness improving. Only 2 episodes over the last week. Denies N/V, diarrhea, abdominal pain. Nausea when gets dizzy - resolved Reports potential medication adverse effects. Fatigue - if wipes self out the day before (improvement from baseline since last visit) DIET and EXERCISE: Sodium restriction: No - doesn't monitor. Generally no added salt. Peanut butter and jelly sandwiches make up most of diet. Fluid restriction: No - drinks a lot of water per mom - drinks bottles of water (primarily unless occasional energy drinks). Not sure on quantity Exercise: Hasn't been doing much because of dizziness. If does too much, his ankles bleed, increasing pain in ankles (has follow up later this month). Still not doing much exercise with dizziness improved. SOCIAL HISTORY: Tobacco use: No EtOH: No Illicit drugs: Marijuana for pain control, in pain 24 hours a day (previously using opiates for pain and developed dependence) MEDICATIONS: Pill bottles are not present. Adherence: unknown missed doses in the past week. Took meds this AM. Pharmacy: Eligible #[id number] [place] [address] - [phone] [facility] Rx coverage: Yes Medication Affordability: Yes Organization system: keeps them in a box in his bedroom (covered) Administration times: morning/night - 0900/2100 ALLERGIES Allergen Reactions Asa [Salicylates] Intolerance Contrast Dye Other: See Comments History of contrast induced nephropathy-Per patient is allergic to CT DYE Nsaids (Non-Steroid* Other: See Comments Other reaction(s): Other Medication List Medication Directions Comments Action/Plan FLUoxetine (PROZAC) 20 mg capsule Take 1 capsule by mouth once daily. Take with 40 mg dose for total daily dose of 60 mg. FLUoxetine (PROZAC) 40 mg capsule Take 1 capsule by mouth once daily. FVIII rec,B-dom trunc peg-exei (ESPEROCT) 2,000 (+/-) unit solr Inject 6,000 Units intravenously every 4 Days. levETIRAcetam (KEPPRA) 750 mg tablet Take 2 tablets by mouth two times a day. losartan (COZAAR) 50 mg tablet Take 1 tablet by mouth once daily. LD 10/09 90 DS Taking as prescribed midazolam (NAYZILAM) 5 mg/spray (0.1 mL) nasal spray Use 1 spray in the nose as needed for seizures lasting longer than 3 minutes (for convulsions) for up to 180 days. May repeat dose in alternate nostril after 10 minutes based on response and tolerability. sodium chloride 0.9 %, flush, (BD POSIFLUSH NORMAL SALINE 0.9) syringe Inject 5-10 mL intravenously as directed. OTC s: N/A. Acetaminophen as needed for pain Herbals: N/A VITALS: There were no vitals taken for this visit. HOME BLOOD PRESSURE AND PULSE READINGS: Blood pressure (mmHg): Starting to monitor 123/74 (most recent) Heart rate (bpm): No data available Weight: 255 lbs Last BP 10/10/24 : 120/78 10/09/24 : 117/69 07/17/24 : 137/88 05/01/24 : 128/86 Last Pulse 10/10/24 : 78 10/09/24 : 71 07/17/24 : 100 05/01/24 : 91 Last Wt 10/10/24 : 116.1 kg (256 lb) 10/09/24 : 116.1 kg (256 lb) 07/17/24 : 111.1 kg (245 lb) 05/01/24 : 108 kg (238 lb) LABS BMP: Glucose 95 05/01/2024 BUN 21 05/01/2024 Creatinine (POCT) 1.07 05/01/2024 Sodium 139 05/01/2024 Potassium 5.2 05/01/2024 Chloride 99 05/01/2024 CO2 Content, Venous 30 05/01/2024 Protein, Total 7.6 05/01/2024 Albumin 4.5 05/01/2024 Calcium 9.9 05/01/2024 Alkaline Phosphatase 78 05/01/2024 Bilirubin, Total 0.7 05/01/2024 AST 18 05/01/2024 ALT 20 05/01/2024 NT Pro BNP Date Value Ref Range Status 09/09/2015 2,060 (H) <125 pg/mL Final No results found for: DIGOXIN CrCl cannot be calculated (Patient's most recent lab result is older than the maximum 180 days allowed.). * I have personally reviewed all lab testing. PHARMACOTHERAPY ASSESSMENT and PLAN: ASSESSMENT/PLAN: 1. Systolic dysfunction - ICD9: 429.9, ICD10: I51.9 (primary diagnosis) The patient is doing well and heart failure symptoms are stable. Patient denies symptoms related to hypotension, bradycardia, or hypervolemia. Patient is currently adherent and tolerating all HF medications, as indicated below. Guideline Directed Medical Therapy Most recent GDMT score: 1 MAYI/ARB/ARNI YES - losartan Dose titration in progress Beta Jimmy NO To be addressed Aldosterone antagonist NO To be addressed SGLT2i NO To be addressed Hydralazine/Isosorbide Dinitrate NO Not indicated Ivabradine NO Not indicated Patient's BP and HR are currently unknown while being on 1 pillars of HF guideline-directed medical therapies. Sunita has been experiencing some dizziness following initiation of losartan. He does not have a BP cuff at home, his mom is planning to bring hers over so he can start checking it every few days. Need to repeat BMP following losartan initiation. In the future, may consider decrease of losartan, initiation of SGLT2i (empagliflozin $0), initiation of MRA, or initiation of BB (pending home readings). ARNI test script failed, unclear if requires PA. Confirmed with Dr. Steven considered stage C given interval exertional fatigue. CONTINUE medications as prescribed Call [facility] [phone] (Wednesday through Wednesday between 8AM-4PM, leave a voicemail via option 1) if any new dizziness, lightheadedness, or SBP <90 Repeat BMP at earliest convenience START monitoring BP/HR and weight at home. Next appointment with Dr. Steven to be scheduled 2. Encounter for medication review and counseling - ICD9: V65.49, ICD10: Z71.89 I reviewed the new medications and indications, how to take them, and what to expect in terms of side effects. We also reviewed medications that should no longer be taken, as well as life style modifications including diet and exercise. I recommend use of a pillbox for improved adherence. Interventions made during pharmacy visit: Medication reconciliation, Medication education, and Other: lab monitoring The patient verbalized understanding of the instructions. Next pharmacy appointment scheduled on 01/24. Janneth Thomas, ShavonD, [facility] Heart Failure and Heart Transplant Clinical Process Controller [phone] documented in this encounter [facility] 12-13-2024 Instructions Janneth Thomas RPh - 12/13/2024 3:00 PM EDT Below is a brief summary of what we discussed: CONTINUE medications as prescribed Call [facility]acy [facility] [phone] (Wednesday through Wednesday between 8AM-4PM, leave a voicemail via option 1) if any new dizziness, lightheadedness, or SBP <90 Repeat BMP at earliest convenience START monitoring BP/HR and weight at home. documented in this encounter [facility] 12-13-2024 Note HNO ID: [id number] Author: JANNETH THOMAS RPh Service: ? Author Type: Pharmacist Type: Progress Notes Filed: 12/22/2024 15:45 Note Text: Glucose 77 12/21/2024 BUN 12 12/21/2024 Creatinine (POCT) 1.02 12/21/2024 Sodium 140 12/21/2024 Potassium 4.6 12/21/2024 Chloride 101 12/21/2024 CO2 Content, Venous 28 12/21/2024 Protein, Total 7.6 05/01/2024 Albumin 4.5 05/01/2024 Calcium 9.5 12/21/2024 Alkaline Phosphatase 78 05/01/2024 Bilirubin, Total 0.7 05/01/2024 AST 18 05/01/2024 ALT 20 05/01/2024 NT Pro BNP Date Value Ref Range Status 09/09/2015 2,060 (H) <125 pg/mL Final No results found for: DIGOXIN Estimated Creatinine Clearance: 140.1 mL/min (based on SCr of 1.02 mg/dL). Labs stable. Called to review. Dizziness has resolved, has not been checking BP/HR. Discussed starting additional GDMT: reviewed MRA, BB, SGLT2i. Based on shared-decision making plan to start metoprolol XL 12.5 mg once daily. Low dose given prior fatigue/dizziness. Counseled on benefits/potential side effects and to call HF Pharmacy Clinic with any questions or concerns after starting. Recommended keep log of BP/HR prior to next HF Pharmacy visit. Next pharmacy appointment 01/24. Reason for telephone encounter: Laboratory Results and Visit Follow-up Time spent: 11-20 minutes Janneth Thomas, PharmD, [facility] Heart Failure and Heart Transplant Clinical Process Controller [phone] December 22, 2024 3:43 PM [facility] 12-13-2024 Note HNO ID: [id number] Author: MARJORIE ROD RPh Service: ? Author Type: Pharmacist Type: Progress Notes Filed: 12/29/2024 16:25 Note Text: Pt's mother called to report blood pressures for this past week. 12/26: 135/97, 116/86 12/27: 166/108 (had not been sitting, had been moving around), 135/86 12/28: 126/90, 167/90 (was moving around) 12/29: 161/86, 141/98 No pulse readings, will start monitoring these going forward. Appears pt may not always be sitting for an extended period of time before taking. Discussed this with mother and she will relay the message to pt about how to take BP appropriately. Pt endorses some dizziness with low dose metoprolol initiation on 12/26. Mother has not asked pt if he is still having these symptoms. Mother added pt to the call to discuss if still having symptoms but unable to reach him. Instructions given to mother: - If pt still having symptoms of dizziness/lightheadedness, CONTINUE with current medications for now and start checking BP after sitting quietly about 30 min after taking medications and to take HR as well. - If pt NOT experiencing dizziness, INCREASE losartan to 1.5 tablets (75 mg) daily for the next week and call with an update for blood pressures next week. Mother expressed understanding and had no further questions. Next pharmacy appointment 01/24. Reason for telephone encounter: Visit Follow-up Time spent: 11-20 minutes Marjorie Rod RPh December 29, 2024 4:11 PM [facility] 12-13-2024 Note HNO ID: [id number] Author: JANNETH THOMAS RPh Service: ? Author Type: Pharmacist Type: Progress Notes Filed: 12/22/2024 07:20 Note Text: Heart and Vascular [place] [facility] Heart Failure Medication Optimization [facility] OUTPATIENT VISIT DATE December 13, 2024 OUTPATIENT VISIT TYPE Established Patient Patient consents to pharmacy consult agreement. Sunita Harrington is a 39 year old male previously diagnosed with HFrEF: EF 37% (09/2024) . The patient?s heart failure is managed by Dr. Steven who referred the patient to the ambulatory HF pharmacy clinic for medication reconciliation, education, and titration of all HF medications. Last seen by HF PharmD on 11/14 at which time no medication changes were made. Today, the patient presents via virtual visit. Visit conducted with patient's mother, Deedee Interval Events: 0 ED visits or hospitalizations since last seen by HF pharmacist No repeat labs - forgot, will plan to go soon Feeling better with losartan, some dizzy spells, but have improved significantly. PMH: PAST MEDICAL HISTORY Diagnosis Date Coarctation of aorta (preductal) (postductal) ([facility]) Coarctation of aorta Congenital bicuspid aortic valve ([facility]) 01/02/2015 Monitor: pt will follow outpatient. 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 Based on current guidelines*, a repeat follow-up unenhanced low-dose CT can be obtained in 12 months at clinical discretion. Plan: Pt is aware, follow up w/ local MD. Post-op pain 09/09/2015 History: Pre-op h/o back pain treated w/ oxycodone 20mg q 6hrs prn and MS contin 30mg tid. MRI 09/08 no evidence of discitis or osteomyelitis. Assessment: Verbalizes adequate pain relief on preop regimen. Plan: Continue Tylenol, lidoderm, and preop regimen of Oxycodone 20mg q 6hrs prn and MS Contin 30mg tid Pulmonary HTN ([facility]) Seizure ([facility]) 09/26/2015 History: H/o seizures, on keppra preop Assessment: 09/20/15 post op seizure in ICU. No further events Plan: Continue keppra. Follow up w/ Neurology after discharge. Stroke ([facility]) 01/2015 2 x Brain hemorrhage (07/2014, 11/2014) Thoracic ascending aortic aneurysm Tooth decay 09/26/2015 History: Preop dental evaluation revealed gross decay and chronic abscess of tooth #2 Assessment: Dental recommended extraction of tooth #2. Plan: After clearance from ID, CTS, Hematology, pt underwent extraction #2 on 09/27/15. Continue amicar x 1 more dose today per Hematology. ROS: Denies shortness of breath at rest and on exertion (orthopnea, PND, bendopnea, wheezing/coughing). Denies symptoms of edema (abdominal, early satiety, lower extremity). Denies CP, palpitations, DALY, blurred vision. Reports dizziness, lightheadedness, syncope. Dizziness improving. Only 2 episodes over the last week. Denies N/V, diarrhea, abdominal pain. Nausea when gets dizzy - resolved Reports potential medication adverse effects. Fatigue - if wipes self out the day before (improvement from baseline since last visit) DIET and EXERCISE: Sodium restriction: No - doesn't monitor. Generally no added salt. Peanut butter and jelly sandwiches make up most of diet. Fluid restriction: No - drinks a lot of water per mom - drinks bottles of water (primarily unless occasional energy drinks). Not sure on quantity Exercise: Hasn't been doing much because of dizziness. If does too much, his ankles bleed, increasing pain in ankles (has follow up later this month). Still not doing much exercise with dizziness improved. SOCIAL HISTORY: Tobacco use: No EtOH: No Illicit drugs: Marijuana for pain control, in pain 24 hours a day (previously using opiates for pain and developed dependence) MEDICATIONS: Pill bottles are not present. Adherence: unknown missed doses in the past week. Took meds this AM. Pharmacy: [id number] [place] [address] - [phone] [facility] Rx coverage: Yes Medication Affordability: Yes Organization system: keeps them in a box in his bedroom (covered) Administration times: morning/night - 0900/2100 ALLERGIES Allergen Reactions Asa [Salicylates] Intolerance Contrast Dye Other: See Comments History of contrast induced nephropathy-Per patient is allergic to CT DYE Nsaids (Non-Steroid* Other: See Comments Other reaction(s): Other Medication List Medication Directions Comments Action/Plan FLUoxetine (PROZAC) 20 mg capsule Take 1 capsule by mouth once daily. Take with 40 mg dose for total daily dose of 60 mg. FLUoxetine (PROZAC) 40 mg capsule Take 1 capsule (more content not included)... [facility] 11-16-2024 Telephone encounter Note Signed. Thanks! [facility] 11-16-2024 Miscellaneous Notes Signed. Thanks! Received call back from [facility] pharmacist [phone] with request for dosage change. Due to weight, recommend dose 5780. For ease of ordering Ok for 6000. Request for prn dosing: verbiage added 'once as needed for breakthrough bleed'. Pharmacy to monitor needs and will dispense prn dosing when requested. Patients mother called in wondering if you can send in for PRN doses of esperoct just for break through bleed? Georgette Anton RN documented in this encounter [facility] 11-16-2024 Telephone encounter Note Received call back from [facility] pharmacist [phone] with request for dosage change. Due to weight, recommend dose 5780. For ease of ordering Ok for 6000. Request for prn dosing: verbiage added 'once as needed for breakthrough bleed'. Pharmacy to monitor needs and will dispense prn dosing when requested. [facility] 11-16-2024 Telephone encounter Note Patients mother called in wondering if you can send in for PRN doses of esperoct just for break through bleed? Georgette Anton RN [facility] 11-14-2024 History of Present illness Narrative Heart and Vascular [place] [facility] Heart Failure Medication Optimization Clinic OUTPATIENT VISIT DATE November 14, 2024 OUTPATIENT VISIT TYPE New Patient Patient consents to pharmacy consult agreement. Sunita Harrington is a 39 year old male previously diagnosed with HFrEF: EF 37% (09/2024) . The patient s heart failure is managed by Dr. Steven who referred the patient to the ambulatory HF pharmacy clinic for medication reconciliation, education, and titration of all HF medications. Last seen by Dr. Steven on 10/09 at which time losartan 50 mg daily was started. Today, the patient presents via virtual visit. Visit conducted with patient's mother, Deedee Interval Events: 0 ED visits or hospitalizations since last seen by HF provider PMH: PAST MEDICAL HISTORY Diagnosis Date Coarctation of aorta (preductal) (postductal) ([facility]) Coarctation of aorta Congenital bicuspid aortic valve ([facility]) 01/02/2015 Monitor: pt will follow outpatient. 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 Based on current guidelines*, a repeat follow-up unenhanced low-dose CT can be obtained in 12 months at clinical discretion. Plan: Pt is aware, follow up w/ local MD. Post-op pain 09/09/2015 History: Pre-op h/o back pain treated w/ oxycodone 20mg q 6hrs prn and MS contin 30mg tid. MRI 09/08 no evidence of discitis or osteomyelitis. Assessment: Verbalizes adequate pain relief on preop regimen. Plan: Continue Tylenol, lidoderm, and preop regimen of Oxycodone 20mg q 6hrs prn and MS Contin 30mg tid Pulmonary HTN ([facility]) Seizure ([facility]) 09/26/2015 History: H/o seizures, on keppra preop Assessment: 09/20/15 post op seizure in ICU. No further events Plan: Continue keppra. Follow up w/ Neurology after discharge. Stroke ([facility]) 01/2015 2 x Brain hemorrhage (07/2014, 11/2014) Thoracic ascending aortic aneurysm Tooth decay 09/26/2015 History: Preop dental evaluation revealed gross decay and chronic abscess of tooth #2 Assessment: Dental recommended extraction of tooth #2. Plan: After clearance from ID, CTS, Hematology, pt underwent extraction #2 on 09/27/15. Continue amicar x 1 more dose today per Hematology. ROS: Denies shortness of breath at rest and on exertion (orthopnea, PND, bendopnea, wheezing/coughing). Denies symptoms of edema (abdominal, early satiety, lower extremity). Denies CP, palpitations, DALY, blurred vision. Reports dizziness, lightheadedness, syncope. Very bothersome - hard to do anything because of dizziness (standing up or doing something) Reports N/V, diarrhea, abdominal pain. Nausea when gets dizzy Reports potential medication adverse effects. Fatigue - if wipes self out the day before (baseline) Answers submitted by the patient for this visit: Review of Systems Heart Failure (Submitted on 11/13/2024) Fever : No Night sweats: No Recent unintentional weight change: No Vision Disturbance: No Hearing Loss: No A cough: No Difficulty Breathing?: No Chest pain: No Leg Swelling: No Skipping or irregular heartbeats?: No Feel like passing out?: No Black tarry stools: No Nausea: No Diarrhea: No Swelling in your abdomen?: No Fill up quickly when you eat?: No Difficulty Urinating?: No Joint pain or stiffness: Yes Muscle aches: Yes A rash: No Dizziness: Yes Headaches: Yes DIET and EXERCISE: Sodium restriction: No Fluid restriction: No Exercise: Hasn't been doing much because of dizziness. If does too much, his ankles bleed SOCIAL HISTORY: Tobacco use: No EtOH: No Illicit drugs: Marijuana for pain control, in pain 24 hours a day (previously using opiates for pain and developed dependence) MEDICATIONS: Pill bottles are not present. Adherence: unknown missed doses in the past week. Took meds this AM. Pharmacy: [id number] - [place] [address] - [phone] [facility] Rx coverage: Yes Medication Affordability: Yes Organization system: keeps them in a box in his bedroom (covered) Administration times: morning/night - 09/2099 ALLERGIES Allergen Reactions Asa [Salicylates] Intolerance Contrast Dye Other: See Comments History of contrast induced nephropathy-Per patient is allergic to CT DYE Nsaids (Non-Steroid* Other: See Comments Other reaction(s): Other Medication List Medication Directions Comments Action/Plan FLUoxetine (PROZAC) 20 mg capsule Take 1 capsule by mouth once daily. Take with 40 mg dose for total daily dose of 60 mg. LD 90DS 10/20 Taking as directed FLUoxetine (PROZAC) 40 mg capsule Take 1 capsule by mouth once daily. LD 90DS 10/20 Taking as directed Discontinued: 11/07/2024 1:08 PM FVIII rec,B-dom trunc peg-exei (ESPEROCT) 2,000 (+/-) unit solr Inject 5,000 Units intravenously every 4 Days. Taking as directed Discontinued: 11/07/2024 11:28 AM levETIRAcetam (KEPPRA) 750 mg tablet Take 2 tablets by mouth two times a day. LD 90DS 10/10 Taking as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 POSIFLUSH NORMAL SALINE 0.9) syringe Inject 5-10 mL intravenously as directed. JIVI 3,000 (+/-) unit solr Inject 6,230 Units intravenously two times a week. Inject 6230 (+/- 10 %) units every Wednesday and and (#4 prn breakthrough doses) FVIII rec,B-dom trunc peg-exei (ESPEROCT) 2,000 (+/-) unit solr Inject 5,000 (more content not included)... [facility] 08-22-2024 Discharge summary [facility] 08-22-2024 Radiology Diagnostic study note [facility] Imaging Services [address] [place], [place] [address] Brain/Head without Contrast MR#: [id number] Acct: [id number] Name: SUNITA HARRINGTON Marcela Rep #: [id number] : 1985 M 39 From: Kurt Manzo MD PCP: CINDY Rodriguez Status: REG E R Study:Brain/Head without Contrast Date of Exa m: 08/22/24 Exam# [id number] Ordering Dr: Zahida Aquino MD PROCEDURE: BRAIN/HEAD WITHOUT CONTRAST 08/22/2024 REASON FOR EXAM: TRAUMA, HEMOPHILIAC Abrasions to the right side of the face. TECHNIQUE: Head CT without intravenous contrast. Coronal and Sagittal reconstruction serieswere provided. One or more dose reduction techniques were used (e.g., Automated exposure control, adjustment of the mA and/or kV according to patient size, use of iterative reconstruction technique. RADIATION DOSE SUMMARY: CTDlvol: 44.99 mGy DLP: 829.85 mGycm COMPARISON: Comparison is made with prior study dated September 22, 2018. FINDINGS: Brain: Stable focal area of encephalomalacia is in the right frontal lobe as well as in the left posterior temporal parietal lobe and right occipital lobe. CSF Spaces: Mild generalized cerebral atrophy Sinuses/Mastoids: Soft tissue swelling overlying the right orbital region. Bones: Status post right frontal and right posterior parietal occipital craniotomies. CT/Brain/Head without Contrast IMPRESSION: No evidence of acute intracranial abnormality. Stable examination. Soft tissue swelling overlying the right orbital region. Reading Location: [id number] CC: Dr. Toni Aquino MD; CINDY Rodriguez ~ Production Control Pegboard Clerk: Signed [facility] 08-22-2024 Discharge summary Note Date/Time August 22, 2024 5:10 pm [facility] Medical Records Department [address] [place] [id number] Emergency Department Summary 08/22/24 MR#: [id number] Acct: [id number] Name: SUNITA HARRINGTON Rep #:[id number] : 1985 39 From: Toni Aquino MD PCP: CINDY Rodriguez Status:REG E R Location: ED HPI HPI - Fall History of Present Illness Chief Complaint: Fall Informant: patient and family Narrative Narrative: 39-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 He lives with his sister, who was at work today when patient had an event that he does not remember. Sister came home to find him with injuries to his face. He does not have a headache. He does not have any trouble with his vision. He has sorenessin his lips and the face near his right eye. He is bleeding from both of these areas. He denies any other pain or injury. He takes Keppra for seizures, unknown what dose right now but he takes Factor VIII 6000 units twice weekly andwhen he hits his head, they have it at home and have not used it yet today. No recent illness. Patient remembers going to the bathroom and then was going to go lay down and does not remember when and where what happened. He took his Keppra this morning before all of this, has not missed any doses that he recallsrecently, denies any recent medication changes or additions/deletions, has not seen his neurologist for a year or so. Does not have seizures very often maybe once a year or so. [facility] Medical History Seizure Hemophilia hx of stroke Home Medications ?Medication ?Instructions ?Recorded ?Last Taken ?Type antihemophil FVIII,full length 12,000 unit IV QODAY Unknown History 1,000 (+/-) unit IV solution citalopram 20 mg tablet PO #30 tabs 02/28/19 Unknown History levetiracetam 1,000 mg tablet 1,000 mg PO BID #60 tabs 08/22/24 Unknown Rx (Keppra) Allergy/AdvReac Type Severity Reaction Status Date / Time aspirin Allergy Other Verified 08/22/24 13:11 Iodinated Contrast Media Allergy Other Verified 08/22/24 13:11 (DYEE) NSAIDS (Non-Steroidal Allergy Other Verified 08/22/24 13:11 Anti-Inflamma Surgical History Hx of brain surgery History of ankle surgery History of arthroscopy of left knee Hx of heart surgery Social History Smoking Status: Never smoker alcohol intake: never ROS ROS ED Constitutional Constitutional ED: Denies chills or fever(s) Eyes Eyes: Denies change in vision or diplopia ENT ENT ED: Denies rhinorrhea or sore throat Cardiovascular Cardiovascular: Denies chest pain or palpitations Respiratory/Chest Respiratory/Chest: Denies cough or dyspnea Gastrointestinal Gastrointestinal: Denies abdominal pain, diarrhea, nausea or vomiting Genitourinary Genitourinary ED: Denies dysuria or hematuria Musculoskeletal Musculoskeletal: Denies back pain or neck pain Integumentary Reports laceration; Denies abscess or rash Neurologic Neurologic: Reports other Details: Amnestic to earlier events no other memory issues or confusion ; Denies headache(s), paresthesias or weakness Psychiatric Psychiatric: Denies anxiety or suicidal thoughts EXAM Physical Exam Const Vital Signs: 08/22/24 13:07 08/22/24 13:20 08/22/24 14:07 Temperature 96.4 F L Temperature Source Temporal Pulse Rate 66 Respiratory Rate 19 H 16 Respiratory Effort Normal Respiratory Depth Normal Respiratory Pattern Normal Blood Pressure 134/83 H 145/99 H Blood Pressure Mean 100 114 Pulse Ox 98 Oxygen Delivery Method Room Air Room Air 08/22/24 15:00 08/22/24 16:00 Temperature Temperature Source Pulse Rate Respiratory Rate Respiratory Effort Respiratory Depth Respiratory Pattern Blood Pressure 125/72 H 136/73 H Blood Pressure Mean 89 94 Pulse Ox Oxygen Delivery Method Positive well nourished and well developed General Appearance ED: well developed and NAD HEENT Reports moist mucous membranes HEENT Narrative: Right lateral periorbital ecchymosis, but not around the eye. No raccoon eyes. There is an associated laceration here, 1.5 cm, it is on the lateral aspect of the right upper eyelid but does not involve the margin and is not through and through, I everted the eyelid to check. There is no sign of globe trauma. There is no bony facial tenderness. There is also contusion to the right upper lip and contusion to the right lower lip with a laceration on the vermilion not including the border that is irregular with a flap and 2 cm, full-thickness not through and through no dentition injury. There is a second 1 cm L-shaped laceration only on the vermilion just lateral to this, and a third laceration full-thickness linear 1.5 cm that is along the vermilion border just caudal to both of these other 2. Can open jaw, no malocclusion. No hemotympanum. No Guillaume sign. normocephalic Eyes PERRL and EOMs intact bilaterally Neck full ROM and supple Resp normal respiratory effort and clear to auscultation bilaterally Cardio regular rate, regular rhythm and no murmurs GI non-tender and non-distended Auscultation: normoactive bowel sounds Palpation: soft Back/Spine no CVA tenderness General Back: other FROM Extremity normal to inspection General Extremety ED: Negative for edema, pulses abnormal or tenderness General Extremity: Negative for edema or pulses abnormal Neuro oriented x3, CN's II-XII intact bilaterally and no sensory deficits noted Sensorium / Orientation: awake and alert Motor Exam: strength 5/5 throughout Psych mental status grossly normal and thought process normal Skin Skin Narrative: Lacerations to the face see above MDM MDM MDM Narrative Medical decision making narrative: Alert a stat CT on the patient as well as some basic labs and seizure precautions with an IV, he did not have any other seizure activity, I waited to give him anything for seizures until we had confirmation of his levetiracetam dosing which in the EMR 750 twice daily. This later was confirmed. This hospital does not have factor VIII, but family has it at home and they live 5 minutes away. Therefore while he was being imaged, family went home and got hisfactor and he gave himself 6000 units as soon as they brought it back. I reviewed the CT images as well as the report which I agree with, it is negative for intracranial injury/hemorrhage. Lacerations were repaired see the procedurenote. I gave him an extra oral 500 mg levetiracetam, increased his dose to 1000mg twice daily until he can see his neurologist. It is unclear if he had a seizure or not, but I am assuming he did until proven otherwise given his amnesia of the event. Lab Data Attestation: I reviewed the patient's lab results. Labs: Laboratory Results - last 24 hr 08/22/24 13:44 WBC 14.5 H RBC 6.28 H Hgb 18.1 H* Hct 53.2 MCV 84.7 MCH 28.8 MCHC 34.0 RDW Std Deviation 40.5 RDW Coeff of Abraham 13.2 Plt Count 195 MPV 10.0 Immature Gran % (Auto) 0.300 Neut % (Auto) 89.4 H Lymph % (Auto) 6.6 L [place] % (Auto) 3.5 Eos % (Auto) 0.1 Baso % (Auto) 0.1 Absolute Neuts (auto) 12.9 H Absolute Lymphs (auto) 0.96 Nucleated RBC % 0 Sodium 140 Potassium 4.7 Chloride 103 Carbon Dioxide 26.8 Anion Gap 10 BUN 18 Creatinine 1.03 Estim Creat Clear Calc 130.14 Est GFR (MDRD) Non-Af 96 BUN/Creatinine Ratio 17.8 Glucose 113 H Calcium 9.2 Radiography Diagnostic Testing: Clinical Impression(s) from Imaging Studies Brain CT 08/22/24 13:31 IMPRESSION: No evidence of acute intracranial abnormality. Stable examination. Soft tissue swelling overlying the right orbital region. Reading Location: [id number] Procedures Lacerations R upper eyelid: Length: 1.5 cm Depth: Sub Q Shape: Linear Prep: Sterile Conditions and Chlorhexadine Laceration repair: Lidocaine with epi (0.5cc, 1%), Local and Skin sutures Number of Sutures/Macy: 3 Suture Information: Ethilon, Simple and 6-0 R lower lip, medial: Length: 2 cm Depth: Sub Q Shape: Flap (and irregular) Prep: Sterile Conditions Laceration repair: Lidocaine with epi (0.5cc, 1%), Local and Skin sutures Number of Sutures/Macy: 5 Suture Information: Vicryl (#2 5-0), Ethilon (#3 total, #2 5-0, #1 6-0) and Simple lower lip osei border horizontal: Length: 1.5 cm Depth: Sub Q Shape: Linear Prep: Sterile Conditions and Chlorhexadine Laceration repair: Lidocaine with epi (0.5cc, 1%), Local and Skin sutures Number of Sutures/Macy: 3 Suture Information: Ethilon, Simple and 6-0 Discharge Plan Triage Chief Complaint: Fall ED Provider: Toni Aquino Dx/Rx/DC Orders Clinical Impression: Closed head injury without concussion, Face lacerations, Transient alteration of awareness, Hx of seizure disorder, Hemophilia A Instructions: ED FACIAL LACERATION Suture Tape Prescriptions: New levetiracetam [Keppra] 1,000 mg tablet 1,000 mg PO BID Qty: 60 0RF Discontinued levetiracetam 750 MG tablet 750 mg PO BID No Action citalopram 20 mg tablet PO Qty: 30 antihemophil FVIII,full length 1,000 UNIT recon soln 12,000 unit IV QODAY Rx Instructions: 2x/week Primary Care Provider: Marcela Jacob Referrals: neurologist, your [Other] - As soon as possible Marcela Jacob PA [Primary Care Provider] - 5 Days for suture removal (or ER or urgent care) Activity Restrictions/Additional Instructions: You have 13 sutures total. 2 of them are absorbable, if they fall out before the others are removed no problem, if not they may all be cut out. No driving until you are cleared by your neurologist. Print Language: Niuean Disposition Disposition: Home, Self Care What to do if you have Problems For any increased pain, shortness of breath, bleeding, nausea or vomiting, chestpain, or any unexpected problems, contact your Primary Care Provider. Call [facility] ([phone]) or report to the closest Emergency Room. Call 911 if necessary. 08/22/24 1710 <Electronically signed by Toni Aquino MD> Cosigner Signature (if applicable): CC: CINDY Rodriguez ~ Signed [facility] Work Phone: 1(742) 418-767003-20-2025 Telephone encounter Note* Telephone Encounter - Lidia Gar - 08/10/2024 5:55 PM EDT Received faxed request for 0.9% saline Posiflush to [facility]. [facility]03-20-2025 Miscellaneous Notes* Telephone Encounter - Lidia Gar - 08/10/2024 5:55 PM EDT Received faxed request for 0.9% saline Posiflush to [facility]. documented [facility] Telephone encounter Note * Telephone Encounter - Lidia Gar - 07/17/2024 10:43 AM EST Patient requests parking placard. [facility]-24-2025 Miscellaneous Notes* Telephone Encounter - Lidia Gar - 07/17/2024 10:43 AM EST Patient requests parking placard. documented in [facility]25 NoteHNO ID: [id number] Author: AUSTEN BLEVINS MD Service: ? Author Type: Physician Type: Progress Notes Filed: 07/17/2024 22:23 Note Text: Sunita Harrington 1985 July 17, 2024 HPI: Sunita Harrington is a 38 year old male with history of Hemophilia A, CVA/TIA/ICH, seizures, valvulopathy, polysubstance abuse and left hip osteoarthritis s/p left hip arthroplasty 01/09/2021. Seen by Dr. Lyons in the past. He presents today for follow-up of hemophilia A. Remains on JIVI 6000 units 2-3 times a week. Occasional bleeding in right elbow and ankles. Chronic pain in right elbow. No unintentional weight loss, fever, chest pain, hortness of breath, abdominal pain, change in bowel movements. PAST MEDICAL HISTORY Diagnosis Date Coarctation of aorta (preductal) (postductal) Coarctation of aorta Congenital bicuspid aortic valve 01/02/2015 Monitor: pt will follow outpatient. 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 Based on current guidelines*, a repeat follow-up unenhanced low-dose CT can be obtained in 12 months at clinical discretion. Plan: Pt is aware, follow up w/ local MD. Post-op pain 09/09/2015 History: Pre-op h/o back pain treated w/ oxycodone 20mg q 6hrs prn and MS contin 30mg tid. MRI 09/08 no evidence of discitis or osteomyelitis. Assessment: Verbalizes adequate pain relief on preop regimen. Plan: Continue Tylenol, lidoderm, and preop regimen of Oxycodone 20mg q 6hrs prn and MS Contin 30mg tid Pulmonary HTN (HCC) Seizure ([facility]) 09/26/2015 History: H/o seizures, on keppra preop Assessment: 09/20/15 post op seizure in ICU. No further events Plan: Continue keppra. Follow up w/ Neurology after discharge. Stroke ([facility]) 01/2015 2 x Brain hemorrhage (07/2014, 11/2014) Thoracic ascending aortic aneurysm (HCC) Tooth decay 09/26/2015 History: Preop dental evaluation revealed gross decay and chronic abscess of tooth #2 Assessment: Dental recommended extraction of tooth #2. Plan: After clearance from ID, CTS, Hematology, pt underwent extraction #2 on 09/27/15. Continue amicar x 1 more dose today per Hematology. PAST SURGICAL HISTORY Procedure Laterality Date ABD AORTA ANEURYSM REPAIR 12/09/2009 replacement of ascending aorta with #28 Hemashield supracoronary graft. ANKLE SURGERY HX Bilateral x 2-3 each ankle, clean-outs CONGENITAL HEART SURGERY 05/24/1988 repair coarctation aorta CRANIOT TEMPORAL LOBE W/O ELECTROCORTICOGRAPHY Right 06/2014 CRANIOTOMY FOR LOBOTOMY Right 12/2014 Frontal HEART SURGERY HX 2016 re-do CTS HIP SURGERY HX Left 2002 KNEE SURGERY HX Left PICC LINE INSERT/CONSULT 01/08/2015 PICC LINE INSERT/CONSULT 02/05/2015 SHX AORTIC STENT 05/24/2005 aortic stenting secondary to re-stenosis Current Outpatient Medications Medication Sig Dispense Refill FLUoxetine (PROZAC) 40 mg capsule Take 1 capsule by mouth once daily. 90 capsule 3 FLUoxetine (PROZAC) 20 mg capsule Take 1 capsule by mouth once daily. Take with 40 mg dose for total daily dose of 60 mg. 90 capsule 3 levETIRAcetam (KEPPRA) 750 mg tablet 2 tablets by ORAL/FEEDING TUBE route two times a day. 120 tablet 5 JIVI 3,000 (+/-) unit solr Inject 6,230 Units intravenously two times a week. Inject 6230 (+/- 10 %) units every Wednesday and and (#4 prn breakthrough doses) 12 Each 5 No current facility-administered medications for this visit. ALLERGIES Allergen Reactions Asa [Salicylates] Intolerance Contrast Dye Other: See Comments History of contrast induced nephropathy-Per patient is allergic to CT DYE Nsaids (Non-Steroid* Other: See Comments Other reaction(s): Other FAMILY HISTORY Problem Relation Age of Onset Hypertension Father age 48 None Mother age 45 No Ocular Disease Other Seizures No Family History Social History Tobacco Use Smoking status: Never Smokeless tobacco: Never Vaping Use Vaping status: Never Used Substance Use Topics Alcohol use: Not Currently Comment: occasionally, once every 6 months Drug use: Yes Types: Marijuana, Opiates Comment: former uses; Last use of Opiates around 2019 I have confirmed and edited as necessary, the PFSH and ROS obtained by others on 07/20/2023. Review of Systems: All systems reviewed on 07/20/2023 with pertinent positives and negatives as outlined in the HPI. 07/17/24 1020 BP: 137/88 Pulse: 100 Temp: 36.5 ?C (97.7 ?F) TempSrc: Temporal SpO2: 96% Weight: 111.1 kg (245 lb) Height: 198.1 cm (6' 6) Body mass index is 28.31 kg/m?. Physical Exam: ECOG PS: 1 Pain Intensity: 3 Gene (more content not included)...[facility]02-24-2025 History of Present illness Narrative* Austen Blevins MD - 07/17/2024 10:33 AM EST Sunita Harrington 1985 July 17, 2024 HPI: Sunita Harrington is a 38 year old male with history of Hemophilia A, CVA/TIA/ICH, seizures, valvulopathy, polysubstance abuse and left hip osteoarthritis s/p left hip arthroplasty 01/09/2021. Seen by Dr. Lyons in the past. He presents today for follow-up of hemophilia A. Remains on JIVI 6000 units 2-3 times a week. Occasional bleeding in right elbow and ankles. Chronic pain in right elbow. No unintentional weight loss, fever, chest pain, hortness of breath, abdominal pain, change in bowel movements. PAST MEDICAL HISTORY Diagnosis Date Coarctation of aorta (preductal) (postductal) Coarctation of aorta Congenital bicuspid aortic valve 01/02/2015 Monitor: pt will follow outpatient. 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 Based on current guidelines*, a repeat follow-up unenhanced low-dose CT can be obtained in 12 months at clinical discretion. Plan: Pt is aware, follow up w/ local MD. Post-op pain 09/09/2015 History: Pre-op h/o back pain treated w/ oxycodone 20mg q 6hrs prn and MS contin 30mg tid. MRI 09/08no evidence of discitis or osteomyelitis. Assessment: Verbalizes adequate pain relief on preop regimen. Plan: Continue Tylenol, lidoderm, and preop regimen of Oxycodone 20mg q 6hrs prn and MS Contin 30mg tid Pulmonary HTN (HCC) Seizure (HCC) 09/26/2015 History: H/o seizures, on keppra preop Assessment: 09/20/15 post op seizure in ICU. No further events Plan: Continue keppra. Follow up w/ Neurology after discharge. Stroke ([facility]) 01/2015 2 x Brain hemorrhage (07/2014, 11/2014) Thoracic ascending aortic aneurysm ([facility]) Tooth decay 09/26/2015 History: Preop dental evaluation revealed gross decay and chronic abscess of tooth #2 Assessment: Dental recommended extraction of tooth #2. Plan: After clearance from ID, CTS, Hematology, pt underwent extraction #2 on 09/27/15. Continue amicar x 1 more dose today per Hematology. PAST SURGICAL HISTORY Procedure Laterality Date ABD AORTA ANEURYSM REPAIR 12/09/2009 replacement of ascending aorta with #28 Hemashield supracoronary graft. ANKLE SURGERY HX Bilateral x 2-3 each ankle, clean-outs CONGENITAL HEART SURGERY 05/24/1988 repair coarctation aorta CRANIOT TEMPORAL LOBE W/O ELECTROCORTICOGRAPHY Right 06/2014 CRANIOTOMY FOR LOBOTOMY Right 12/2014 Frontal HEART SURGERY HX 2016 re-do CTS HIP SURGERY HX Left 2002 KNEE SURGERY HX Left PICC LINE INSERT/CONSULT 01/08/2015 PICC LINE INSERT/CONSULT 02/05/2015 SHX AORTIC STENT 05/24/2005 aortic stenting secondary to re-stenosis Current Outpatient Medications Medication Sig Dispense Refill FLUoxetine (PROZAC) 40 mg capsule Take 1 capsule by mouth once daily. 90 capsule 3 FLUoxetine (PROZAC) 20 mg capsule Take 1 capsule by mouth once daily. Take with 40 mg dose for total daily dose of 60 mg. 90 capsule 3 levETIRAcetam (KEPPRA) 750 mg tablet 2 tablets by ORAL/FEEDING TUBE route two times a day. 120 tablet 5 JIVI 3,000 (+/-) unit solr Inject 6,230 Units intravenously two times a week. Inject 6230 (+/- 10 %) units every Wednesday and and (#4 prn breakthrough doses) 12 Each 5 No current facility-administered medications for this visit. ALLERGIES Allergen Reactions Asa [Salicylates] Intolerance Contrast Dye Other: See Comments History of contrast induced nephropathy-Per patient is allergic to CT DYE Nsaids (Non-Steroid* Other: See Comments Other reaction(s): Other FAMILY HISTORY Problem Relation Age of Onset Hypertension Father age 48 None Mother age 45 No Ocular Disease Other Seizures No Family History Social History Tobacco Use Smoking status: Never Smokeless tobacco: Never Vaping Use Vaping status: Never Used Substance Use Topics Alcohol use: Not Currently Comment: occasionally, once every 6 months Drug use: Yes Types: Marijuana, Opiates Comment: former uses; Last use of Opiates around 2019 I have confirmed and edited as necessary, the PFSH and ROS obtained by others on 07/20/2023. Review of Systems: All systems reviewed on 07/20/2023 with pertinent positives and negatives as outlined in the HPI. 07/17/24 1020 BP: 137/88 Pulse: 100 Temp: 36.5 C (97.7 F) TempSrc: Temporal SpO2: 96% Weight: 111.1 kg (245 lb) Height: 198.1 cm (6' 6) Body mass index is 28.31 kg/m . Physical Exam: ECOG PS: 1 Pain Intensity: 3 General: Age-appropriate well developed. NAD. HEENT: Normocephalic, no sclera icterus. Chest: Not labored. Heart: RRR Abdomen: NT, ND, BS+. Extremities: Pain in R elbow, deformed, limited ROM. Neurological: Grossly intact. Skin: No rashes or jaundice. Psychiatric: Alert and oriented x3. Appropriate mood and affect. Labs WBC (k/uL) Date Value 07/20/2023 5.32 RBC (m/uL) Date Value 07/20/2023 5.46 Hemoglobin (g/dL) Date Value 07/20/2023 13.9 Hematocrit (%) Date Value 07/20/2023 45.5 MCV (fL) Date Value 07/20/2023 83.3 MCH (pg) Date Value 07/20/2023 25.5 (L) MCHC (g/dL) Date Value 07/20/2023 30.5 RDW-CV (%) Date Value 07/20/2023 15.7 (H) Platelet Count (k/uL) Date Value 07/20/2023 206 MPV (fL) Date Value 07/20/2023 9.8 Glucose (mg/dL) Date Value 05/01/2024 95 BUN (mg/dL) Date Value 05/01/2024 21 Creatinine (mg/dL) Date Value 05/01/2024 1.07 Sodium (mmol/L) Date Value 05/01/2024 139 Potassium (mmol/L) Date Value 05/01/2024 5.2 (H) Chloride (mmol/L) Date Value 05/01/2024 99 CO2 (mmol/L) Date Value 05/01/2024 30 Protein, Total (g/dL) Date Value 05/01/2024 7.6 Albumin (g/dL) Date Value 05/01/2024 4.5 Calcium, Total (mg/dL) Date Value 05/01/2024 9.9 Alkaline Phosphatase (U/L) Date Value 05/01/2024 78 Bilirubin, Total (mg/dL) Date Value 05/01/2024 0.7 AST (U/L) Date Value 05/01/2024 18 ALT (U/L) Date Value 05/01/2024 20 Total Cholesterol, Nonfasting (mg/dL) Date Value 05/01/2024 219 (H) Triglycerides, Nonfasting (mg/dL) Date Value 05/01/2024 64 ASSESSMENT/PLAN: 1. Hemophilia A - Previously attempted to change to long acting, Emiczumab (hemlibra), patient refused. - Jivi IV 6000 units 2-3 times a week currently. Patient requested to try Esperoct. Prescribed Esperoct: IV: 50 units/kg/dose every 4 days. If his insurance does not cover, he would like to continue Jivi. - Amicar 5gm every 6 hours as needed (not taking). 2. 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 Lyons. Off narcotics. 3. Iron deficiency. - Lab work 07/17/24: Hgb 16.4, Ferritin 73.4, transferrin saturation 43.2%. - Does not take iron. Follow up in 1 year. Check CBC, Ferritin, iron+TIBC and Factor VIII. Call for questions or concerns. Austen Blevins MD Portions of this note including ROS, impression/plan, and examination may have been copied forward as to provide important historical information essential in contributing to medical decision making.Documentation has been reviewed and edited as necessary to support clinical decision making for today's visit 07/17/2024. Medical Decision Making: Problems: Moderate: 1+ chronic illnesses with change Data: Unique test result(s) reviewed: 3+ Unique test(s) ordered: 3+ Risk: Moderate: Drug management Medical Decision Making Level: 4 - Moderate documented [facility]Mer[facility]12-[facility] Telephone encounter Note * Telephone Encounter - Johan Garcia LPN - 05/15/2024 2:27 PM EST Pt mother, Deedee, notified. She verbalized understanding. Johan Garcia LPN [facility]12-23-[facility] Miscellaneous Notes* Telephone Encounter - Johan Garcia LPN - 05/15/2024 2:27 PM EST Pt mother, Deedee, notified. She verbalized understanding. Johan Garcia LPN * Telephone Encounter - Vonnie Man APRN.CNP - 05/15/2024 12:29 PM EST Should be fine to wait. Can also check to see if they have a cancellation list. * Telephone Encounter - Deedee Carver LPN - 05/15/2024 11:47 AM EST Mother called back and [facility] can not see pt till 10-10-23. Asking if this acceptable. Mother concern he need to be seen sooner. Please advise mother. Please call call no [employer] message. Deedee Carver LPN * Telephone Encounter - Irma Llanos - 05/13/2024 9:01 AM EST Called patient spoke with mother, offer available appts with Cardiology in July, patients mother mother stated that she will be calling to [facility] to try to get him in sooner with cardiology provider was seen in 2018 * Telephone Encounter - Robyn Meza - 05/11/2024 10:04 AM EST 2nd attmept to schedule cardio. LVM * Telephone Encounter - aLura Castellano - 05/08/2024 3:03 PM EST 1'st attempt to schedule with Cardiology. LVM to return call Laura Castellano * Telephone Encounter - Johan Garcia LPN - 05/05/2024 4:37 PM EST TC to pt, spoke /c pt mother Deedee, notified of results/provider response. She verbalized understanding. Please assist pt/mother with scheduling Cardiology appt. Johan Garcia LPN * Telephone Encounter - Vonnie Man APRN.CANCER CENTER DIRECTOR - 05/05/2024 4:29 PM EST Can please let patient know that I received his echo and labs. His labwork looked okay. His bad cholesterol was a little elevated, so please keep an eye on this. His echocardiogram showed that the strength of his heart is a little less than when it was last checked. I think he should return to cardiology for evaluation. The order is placed. Please help schedule. Vonnie Man APRN.SULAIMAN documented in this encounterMer[facility]12-23-2024 Telephone encounter Note * Telephone Encounter - Vonnie Man APRN.CNP - 05/15/2024 12:29 PM EST Should be fine to wait. Can also check to see if they have a cancellation list. [facility] Telephone encounter Note* Telephone Encounter - Deedee Carver LPN - 05/15/2024 11:47 AM EST Mother called back and [facility] can not see pt till 10-10-23. Asking if this acceptable. Mother concern he need to be seen sooner. Please advise mother. Please call call no [employer] message. Deedee Carver LPN [facility]12-21-2024 Telephone encounter Note* Telephone Encounter - Irma Llanos - 05/13/2024 9:01 AM EST Called patient spoke with mother, offer available appts with Cardiology in July, patients mother mother stated that she will be calling to [facility] to try to get him in sooner with cardiology provider was seen in 2018 [facility]12-[facility] Telephone encounter Note* Telephone Encounter - Robyn Meza - 05/11/2024 10:04 AM EST 2nd attmept to schedule cardio. LVM [facility]12-16-2024 Telephone encounter Note* Telephone Encounter - Laura Castellano - 05/08/2024 3:03 PM EST 1'st attempt to schedule with Cardiology. LVM to return call Laura Castellano [facility] Work Phone: [phone] Telephone encounter Note* Telephone Encounter - Joahn Garcia LPN - 05/05/2024 4:37 PM EST TC to pt, spoke /c pt mother Deedee, notified of results/provider response. She verbalized understanding. Please assist pt/mother with scheduling Cardiology appt. Johan Garcia LPN [facility]12-13-2024 Telephone encounter Note* Telephone Encounter - Vonnie Man APRN.CNP - 05/05/2024 4:29 PM EST Can please let patient know that I received his echo and labs. His labwork looked okay. His bad cholesterol was a little elevated, so please keep an eye on this. His echocardiogram showed that the strength of his heart is a little less than when it was last checked. I think he should return to cardiology for evaluation. The order is placed. Please help schedule. Vonnie Man APRN.CANCER CENTER DIRECTOR [facility]12-13-2024 History of Present illness Narrative* Candida Waller, RT(R) - 05/05/2024 8:20 AM EST Radiology Service Progress Note PATIENT NAME: Sunita Harrington DATE OF SERVICE: May 05, 2024 TIME: 8:58 AM PATIENT IDENTITY VERIFICATION COMPLETED USING TWO (2) IDENTIFIERS: Name and Date of confirmedby patient verbally. FALL SCREENING: Has the patient had 2 falls in the last year or 1 fall with injury or currently using an Ambulatory Assistive Device (Walker, Cane, Wheelchair, Crutches, etc.)? No PATIENT GENDER DATA: Male PATIENT RELEVANT IMPLANT DATA REVIEWED: Not Applicable PATIENT PRESENTS WITH AN IMPLANTABLE OR ATTACHED PARTS SALES MANAGER: No RADIOLOGY DEPARTMENT: CT; Exam(s) Completed: Chest PERIPHERAL IV DATA: Not applicable SIGNED BY: RT Luci([place]) May 05, 2024 8:58 AM documented in this encounterMer[facility] Hospital12-13-2024 NoteHNO ID: [id number] Author: CANDIDA WALLER RT(R) Service: Radiology Author Type: Technologist Type: Progress Notes Filed: 05/05/2024 08:58 Note Text: Radiology Service Progress Note PATIENT NAME: Sunita Harrington DATE OF SERVICE: May 05, 2024 TIME: 8:58 AM PATIENT IDENTITY VERIFICATION COMPLETED USING TWO (2) IDENTIFIERS: Name and Date of confirmed by patient verbally. FALL SCREENING: Has the patient had 2 falls in the last year or 1 fall with injury or currently using an Ambulatory Assistive Device (Walker, Cane, Wheelchair, Crutches, etc.)? No PATIENT GENDER DATA: Male PATIENT RELEVANT IMPLANT DATA REVIEWED: Not Applicable PATIENT PRESENTS WITH AN IMPLANTABLE OR ATTACHED PARTS SALES MANAGER: No RADIOLOGY DEPARTMENT: CT; Exam(s) Completed: Chest PERIPHERAL IV DATA: Not applicable SIGNED BY: RT Luci([place]) May 05, 2024 8:58 [facility]12-09-2024 Instructions* Patient Instructions* Vonnie Man APRN.CNP - 05/01/2024 3:04 PM EST Schedule echocardiogram. Schedule the lung CT to follow-up on the nodule. Recheck in 6 months. documented in this encounterMercy Hospital12-09-2024 NoteHNO ID: [id number] Author: VONNIE MAN APRN.CNP Service: ? Author Type: Nurse Practitioner Type: Progress Notes Filed: 05/01/2024 17:15 Note Text: This is a 39 year old male who presents today with: Patient presents with: Establish Care: Transfer of care from Aly Jacob HISTORY OF PRESENT ILLNESS: Sunita Harrington is a 39 year old male. Patient presents with: Establish Care: Transfer of care from Aly Jacob Pt presents today to establish. Previous patient of Anu. No problems/concerns. Mood: Taking prozac -- 60 mg daily. Refers mood has been half/half. Sleep has been okay. Appetite has been okay -- usually drinks milk and has peanut butter sandwiches. No SI/HI. Seizures: Last seizure was almost two years ago. Reports compliance with medications. Hemophilia Follows with heme onc. Refers that he takes his injections. Denies any abnormal bleeding. Due for annual f/u and labs in June. Lung nodule. Noted in 2022. Did not complete surveillance as recommended. Congenital bicuspid aortic valve. Hx of - Aortic coarctation repair in 1988 - Aortic stenting secondary to re-stenosis in 2005 - Ascending thoracic aortic aneurysm repair with supra-coronary graft in 2009 (Dr Langley) - AVR AND Aortic root debridement and replacement with a composite graft (#27 CE pericardial valve and #32 Hemashield graft) on 09/19/15 secondary to [place] bicuspid aortic valve endocarditis. His history is also significant for: - Hemophilia with R occipital ICH/IVH in 06/2014 s/p R temporal craniotomy for evacuation; R frontal ICH/IVH 12/31/14 s/p R frontal craniotomy, hematoma evacuation 12/31/14; cerebral angiogram (01/02/15) - Fever and embolic L MCA (M1) territory stroke in early 01/2015 No CP/palpitations/SOB/swelling/orthopnea/dizziness. He has not had follow-up with cardiology since 2020. Due for echo. REVIEW OF SYSTEMS GENERAL: No weight loss, malaise or fevers/chills HEENT: Negative for frequent or significant headaches, No changes in hearing or vision. NECK: Negative for lumps, goiter, pain and significant neck swelling RESPIRATORY: Negative for cough, hemoptysis, wheezing, dyspnea or shortness of breath CARDIOVASCULAR: Negative for chest pain, leg swelling, orthopnea, or palpitations. Gets some dependent ankle swelling that resolves w/ propping. GI: No nausea, vomiting, or diarrhea/constipation. No hematochezia/melena. No heartburn or reflux symptoms. : No history of dysuria, frequency or incontinence MUSCULOSKELETAL: Negative for joint pain or swelling. SKIN: Negative for lesions, rash, and itching ENDOCRINE: Negative for cold or heat intolerance, polyuria, polydipsia and goiter NEURO: No history of headaches, syncope, paralysis, or tremors PAST MEDICAL HISTORY: PAST MEDICAL HISTORY Diagnosis Date Coarctation of aorta (preductal) (postductal) Coarctation of aorta Congenital bicuspid aortic valve 01/02/2015 Monitor: pt will follow outpatient. 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 Based on current guidelines*, a repeat follow-up unenhanced low-dose CT can be obtained in 12 months at clinical discretion. Plan: Pt is aware, follow up w/ local MD. Post-op pain 09/09/2015 History: Pre-op h/o back pain treated w/ oxycodone 20mg q 6hrs prn and MS contin 30mg tid. MRI 09/08 no evidence of discitis or osteomyelitis. Assessment: Verbalizes adequate pain relief on preop regimen. Plan: Continue Tylenol, lidoderm, and preop regimen of Oxycodone 20mg q 6hrs prn and MS Contin 30mg tid Pulmonary HTN (HCC) Seizure ([facility]) 09/26/2015 History: H/o seizures, on keppra preop Assessment: 09/20/15 post op seizure in ICU. No further events Plan: Continue keppra. Follow up w/ Neurology after discharge. Stroke ([facility]) 01/2015 2 x Brain hemorrhage (07/2014, 11/2014) Thoracic ascending aortic aneurysm ([facility]) Tooth decay 09/26/2015 History: Preop dental evaluation revealed gross decay and chronic abscess of tooth #2 Assessment: Dental recommended extraction of tooth #2. Plan: After clearance from ID, CTS, Hematology, pt underwent extraction #2 on 09/27/15. Continue amicar x 1 more dose today per Hematology. PAST SURGICAL HISTORY Procedure Laterality Date ABD AORTA ANEURYSM REPAIR 12/09/2009 replacement of ascending aorta with #28 Hemashield supracoronary graft. ANKLE SURGERY HX Bilateral x 2-3 each ankle, clean-outs CONGENITAL HEART SURGERY 05/24/1988 repair coarctation aorta CRANIOT TEMPORAL LOBE W/O ELECTROCORTICOGRAPHY Right 06/2014 CRANIO (more content not included)...[facility]12-09-2024 History of Present illness Narrative* Vonnie Man, TURF KEEPER.CANCER CENTER DIRECTOR - 05/01/2024 2:35 PM EST This is a 39 year old male who presents today with: Patient presents with: Establish Care: Transfer of care from Aly Jacob HISTORY OF PRESENT ILLNESS: Sunita Harrington is a 39 year old male. Patient presents with: Establish Care: Transfer of care from Aly Jacob Pt presents today to establish. Previous patient of Aly'shawn. No problems/concerns. Mood: Taking prozac -- 60 mg daily. Refers mood has been half/half. Sleep has been okay. Appetite has been okay -- usually drinks milk and has peanut butter sandwiches. No SI/HI. Seizures: Last seizure was almost two years ago. Reports compliance with medications. Hemophilia Follows with heme onc. Refers that he takes his injections. Denies any abnormal bleeding. Due for annual f/u and labs in June. Lung nodule. Noted in 2022. Did not complete surveillance as recommended. Congenital bicuspid aortic valve. Hx of - Aortic coarctation repair in 1988 - Aortic stenting secondary to re-stenosis in 2005 - Ascending thoracic aortic aneurysm repair with supra-coronary graft in 2009 (Dr Langley) - AVR & Aortic root debridement and replacement with a composite graft (#27 CE pericardial valve and #32 Hemashield graft) on 09/19/15 secondary to [place] bicuspid aortic valve endocarditis. His history is also significant for: - Hemophilia with R occipital ICH/IVH in 06/2014 s/p R temporal craniotomy for evacuation; R frontalICH/IVH 12/31/14 s/p R frontal craniotomy, hematoma evacuation 12/31/14; cerebral angiogram (01/02/15) - Fever and embolic L MCA (M1) territory stroke in early 01/2015 No CP/palpitations/SOB/swelling/orthopnea/dizziness. He has not had follow-up with cardiology since 2020. Due for echo. REVIEW OF SYSTEMS GENERAL: No weight loss, malaise or fevers/chills HEENT: Negative for frequent or significant headaches, No changes in hearing or vision. NECK: Negative for lumps, goiter, pain and significant neck swelling RESPIRATORY: Negative for cough, hemoptysis, wheezing, dyspnea or shortness of breath CARDIOVASCULAR: Negative for chest pain, leg swelling, orthopnea, or palpitations. Gets some dependent ankle swelling that resolves w/ propping. GI: No nausea, vomiting, or diarrhea/constipation. No hematochezia/melena. No heartburn or reflux symptoms. : No history of dysuria, frequency or incontinence MUSCULOSKELETAL: Negative for joint pain or swelling. SKIN: Negative for lesions, rash, and itching ENDOCRINE: Negative for cold or heat intolerance, polyuria, polydipsia and goiter NEURO: No history of headaches, syncope, paralysis, or tremors PAST MEDICAL HISTORY: PAST MEDICAL HISTORY Diagnosis Date Coarctation of aorta (preductal) (postductal) Coarctation of aorta Congenital bicuspid aortic valve 01/02/2015 Monitor: pt will follow outpatient. 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 Based on current guidelines*, a repeat follow-up unenhanced low-dose CT can be obtained in 12 months at clinical discretion. Plan: Pt is aware, follow up w/ local MD. Post-op pain 09/09/2015 History: Pre-op h/o back pain treated w/ oxycodone 20mg q 6hrs prn and MS contin 30mg tid. MRI 09/08no evidence of discitis or osteomyelitis. Assessment: Verbalizes adequate pain relief on preop regimen. Plan: Continue Tylenol, lidoderm, and preop regimen of Oxycodone 20mg q 6hrs prn and MS Contin 30mg tid Pulmonary HTN (HCC) Seizure ([facility]) 09/26/2015 History: H/o seizures, on keppra preop Assessment: 09/20/15 post op seizure in ICU. No further events Plan: Continue keppra. Follow up w/ Neurology after discharge. Stroke (HCC) 01/2015 2 x Brain hemorrhage (07/2014, 11/2014) Thoracic ascending aortic aneurysm (HCC) Tooth decay 09/26/2015 History: Preop dental evaluation revealed gross decay and chronic abscess of tooth #2 Assessment: Dental recommended extraction of tooth #2. Plan: After clearance from ID, CTS, Hematology, pt underwent extraction #2 on 09/27/15. Continue amicar x 1 more dose today per Hematology. PAST SURGICAL HISTORY Procedure Laterality Date ABD AORTA ANEURYSM REPAIR 12/09/2009 replacement of ascending aorta with #28 Hemashield supracoronary graft. ANKLE SURGERY HX Bilateral x 2-3 each ankle, clean-outs CONGENITAL HEART SURGERY 05/24/1988 repair coarctation aorta CRANIOT TEMPORAL LOBE W/O ELECTROCORTICOGRAPHY Right 06/2014 CRANIOTOMY FOR LOBOTOMY Right 12/2014 Frontal HEART SURGERY HX 2016 re-do CTS HIP SURGERY HX Left 2002 KNEE SURGERY HX Left PICC LINE INSERT/CONSULT 01/08/2015 PICC LINE INSERT/CONSULT 02/05/2015 SHX AORTIC STENT 05/24/2005 aortic stenting secondary to re-stenosis ALLERGIES Asa [Salicylates], Contrast Dye, and Nsaids (Non-Steroidal Anti- Inflammatory Drug) MEDICATIONS Current Outpatient Medications Medication Sig levETIRAcetam (KEPPRA) 750 mg tablet 2 tablets by ORAL/FEEDING TUBE route two times a day. FLUoxetine (PROZAC) 40 mg capsule Take 1 capsule by mouth once daily. JIVI 3,000 (+/-) unit solr Inject 6,230 Units intravenously two times a week. Inject 6230 (+/- 10 %) units every Wednesday and and (#4 prn breakthrough doses) FLUoxetine (PROZAC) 20 mg capsule Take 1 capsule by mouth once daily. Take with 40 mg dose for total daily dose of 60 mg. No current facility-administered medications for this visit. FAMILY HISTORY Problem Relation Age of Onset Hypertension Father age 48 None Mother age 45 No Ocular Disease Other Seizures No Family History Social History Tobacco Use Smoking status: Never Smokeless tobacco: Never Vaping Use Vaping status: Never Used Substance Use Topics Alcohol use: Not Currently Comment: occasionally, once every 6 months Drug use: Yes Types: Marijuana, Opiates Comment: former uses; Last use of Opiates around 2019 EXAM: BP 128/86 Pulse 91 Resp 16 Wt 108 kg (238 lb) SpO2 94% BMI 26.81 kg/m PHYSICAL EXAM: General Appearance: Well appearing, alert, in no acute distress, well-hydrated, well nourished.. Skin: Skin color, texture, turgor normal, no suspicious rashes or lesions. Head: Normocephalic, no masses, lesions, tenderness or abnormalities. Eyes: Anicteric sclera. Pupils are equally round and reactive to light. Extraocular movements are intact. . Ears: External ears normal, canals clear. Normal TMs bilaterally. Oropharynx: Lips, mucosa, and tongue normal, teeth and gums normal, oropharynx normal. Neck: Supple, no adenopathy; thyroid symmetric, normal size, no bruits. Lungs: Lungs clear to auscultation. No wheezing, rhonchi, rales.. Heart: RRR without gallop, or rubs. No ectopy. I/ murmur. Abdomen: Normal abdominal exam, Abdomen soft, non-tender. Bowel sounds normal. No masses, organomegaly. Extremities: No deformities, edema, skin discoloration, clubbing or cyanosis. Good capillary refill. . Neurologic: Gait normal. Reflexes normal and symmetric. Sensation grossly intact. ASSESSMENT/PLAN: 1. Mild episode of recurrent major depressive disorder (HCC) - ICD9: 296.31, ICD10: F33.0 (primary diagnosis) Stable on current regimen. - FLUOXETINE 20 MG CAPSULE 2. Seizure disorder (HCC) - ICD9: 345.90, ICD10: G40.909 Stable Continue same medication. - LEVETIRACETAM 3. Screening for lipid disorders - ICD9: V77.91, ICD10: Z13.220 Due for surveillance. - LIPID PANEL, NONFASTING 4. Hypernatremia - ICD9: 276.0, ICD10: E87.0 Recheck. - COMPREHENSIVE METABOLIC PANEL 5. Congenital bicuspid aortic valve - ICD9: 746.4, ICD10: Q23.81 Check echo re: s/p AVR. - ECHO - PERFLUTREN LIPID MICROSPHERES 1.1 MG/ML INJECTION IN NS 10 ML - SODIUM CHLORIDE 0.9 % (FLUSH) INJECTION SYRINGE 6. Aneurysm of ascending aorta without rupture (HCC) - ICD9: 441.2, ICD10: I71.21 As above. - ECHO - PERFLUTREN LIPID MICROSPHERES 1.1 MG/ML INJECTION IN NS 10 ML - SODIUM CHLORIDE 0.9 % (FLUSH) INJECTION SYRINGE 7. Valvular heart disease - ICD9: 424.90, ICD10: I38 As above. - ECHO - PERFLUTREN LIPID MICROSPHERES 1.1 MG/ML INJECTION IN NS 10 ML - SODIUM CHLORIDE 0.9 % (FLUSH) INJECTION SYRINGE 8. Lung nodules - ICD9: 793.19, ICD10: R91.8 Did not complete routine surveillance. Encouraged to repeat CT. - CT CHEST WO IVCON 9. Encounter for immunization - ICD9: V03.89, ICD10: Z23 - INFLUENZA VACCINE, AGE 6MO-64YR, TRIVALENT (AFLURIA, FLULAVAL, FLUVIRIN, FLUZONE) Discussed treatment plan and patient voices understanding. Patient's questions answered appropriately. Medications and potential side effects were discussed and patient voices understanding. Return to the office as scheduled or as needed for worsening/no improvement. Vonnie Man APRN.CANCER CENTER DIRECTOR documented in this encounterMercy Hospital12-03-2024 Telephone encounter Note * Telephone Encounter - Deedee Carver LPN - 04/25/2024 2:46 PM EST Spoke with pt's mother Deedee and they would like to establish with Vonnie Man. Transferred to supervisor bridges and buildings. Deedee Carver LPN [facility]12-03-2024 Miscellaneous Notes* Telephone Encounter - Deedee Carver LPN - 04/25/2024 2:46 PM EST Spoke with pt's mother Deedee and they would like to establish with Vonnie Man. Transferred to supervisor bridges and buildings. Deedee Carver LPN * Telephone Encounter - Jaelyn Walden APRN.CNP - 04/25/2024 1:31 PM EST The following approved medication requests have been transmitted electronically. Requested Prescriptions Pending Prescriptions Disp Refills levETIRAcetam (KEPPRA) 750 mg tablet 120 tablet 0 Si tablets by ORAL/FEEDING TUBE route two times a day. Jaelyn Walden APRN.CNP * Telephone Encounter - [place] Marlin Adan - 04/25/2024 12:28 PM EST Prescription Refill Information The patient has been identified by name and date of : Yes Caregiver verified no other encounters exist for this prescription request: Yes Caregiver confirmed with patient/requestor that no other refills are due, in the near future, with this provider at this time: Yes The last office visit in the department: 02/12/2023 Does the patient have a future office visit with this provider/department: No Requested Prescriptions Pending Prescriptions Disp Refills levETIRAcetam (KEPPRA) 750 mg tablet 120 tablet 8 Si tablets by ORAL/FEEDING TUBE route two times a day. Per Mother, out of medication and needs this today. Marlin Gonzales [facility] April 25, 2024 12:29 PM documented in this encounterMercy Hospital12-03-2024 Telephone encounter Note * Telephone Encounter - Jaelyn Walden APRN.CNP - 04/25/2024 1:31 PM EST The following approved medication requests have been transmitted electronically. Requested Prescriptions Pending Prescriptions Disp Refills levETIRAcetam (KEPPRA) 750 mg tablet 120 tablet 0 Si tablets by ORAL/FEEDING TUBE route two times a day. Jaelyn Walden APRN.CNP [facility]12-03-2024 Telephone encounter Note* Telephone Encounter - Marlin Smart - 04/25/2024 12:28 PM EST Prescription Refill Information The patient has been identified by name and date of : Yes Caregiver verified no other encounters exist for this prescription request: Yes Caregiver confirmed with patient/requestor that no other refills are due, in the near future, with this provider at this time: Yes The last office visit in the department: 02/12/2023 Does the patient have a future office visit with this provider/department: No Requested Prescriptions Pending Prescriptions Disp Refills levETIRAcetam (KEPPRA) 750 mg tablet 120 tablet 8 Si tablets by ORAL/FEEDING TUBE route two times a day. Per Mother, out of medication and needs this today. Marlin Adan April 25, 2024 12:29 PM [facility]09-12-[facility] Telephone encounter Note* Telephone Encounter - Elizabeth Blum - 02/03/2024 4:32 PM EDT Prescription Refill Information The patient has been identified by name and date of : Yes Caregiver verified no other encounters exist for this prescription request: Yes Caregiver confirmed with patient/requestor that no other refills are due, in the near future, with this provider at this time: Yes The last office visit in the department: 02/12/2023 Does the patient have a future office visit with this provider/department: Yes Requested Prescriptions Pending Prescriptions Disp Refills FLUoxetine (PROZAC) 40 mg capsule 90 capsule 0 Sig: Take 1 capsule by mouth once daily. Elizabeth Harris February 03, 2024 4:33 PM [facility]09-12-2024 Miscellaneous Notes* Telephone Encounter - Elizabeth Blum - 02/03/2024 4:32 PM EDT Prescription Refill Information The patient has been identified by name and date of : Yes Caregiver verified no other encounters exist for this prescription request: Yes Caregiver confirmed with patient/requestor that no other refills are due, in the near future, with this provider at this time: Yes The last office visit in the department: 02/12/2023 Does the patient have a future office visit with this provider/department: Yes Requested Prescriptions Pending Prescriptions Disp Refills FLUoxetine (PROZAC) 40 mg capsule 90 capsule 0 Sig: Take 1 capsule by mouth once daily. Elizabeth Harris February 03, 2024 4:33 PM documented in this encounterMercy Hospital09-05-2024 Telephone encounter Note * Telephone Encounter - Lidia Gar - 01/27/2024 12:44 PM EDT Pt called in asking to change his pharmacy to [facility] specialty please send script for Jivi [facility]09-05-2024 Miscellaneous Notes* Telephone Encounter - Lidia Gar - 01/27/2024 12:44 PM EDT Pt called in asking to change his pharmacy to [facility] specialty please send script for Jivi documented in this encounterMercy Hospital08-07-2024 Miscellaneous Notes* Telephone Encounter - Mj Enamorado LPN - 12/29/2023 2:22 PM EDT Refill request received from [facility] pharmacy Hematology / [facility]cology [facility] Medication Request Name/dose: JIVI 3000 Amount dispensed monthly: 12 Each Date last filled: 07/20/23 Date last seen in office: 07/20/23 Provider: Dr Austen Blevins Next scheduled visit: 07/17/24 Change in Pharmacy? No documented in this encounterMercy Hospital08-07-2024 Telephone encounter Note * Telephone Encounter - Mj Enamorado LPN - 12/29/2023 2:22 PM EDT Refill request received from [facility] pharmacy Hematology / Oncology [facility] Medication Request Name/dose: JIVI 3000 Amount dispensed monthly: 12 Each Date last filled: 07/20/23 Date last seen in office: 07/20/23 Provider: Dr Austen Blevins Next scheduled visit: 07/17/24 Change in Pharmacy? No [facility] Miscellaneous Notes* Telephone Encounter - Laura Castellano - 08/14/2023 10:30 AM EDT Patient has been identified by name and date of : Yes, Provider Jacob Date 08-14-2023 Time 10:32 Patient phones for refill(s): Requested Prescriptions Pending Prescriptions Disp Refills FLUoxetine (PROZAC) 40 mg capsule 90 capsule 0 Sig: Take 1 capsule by mouth once daily. Date of last office visit in primary care: 02/12/2023 Date of next office visit in primary care: Visit date not found Please advise. Thank you. Laura Castellano. documented in this encounterMercy Hospital03-22-2024 Miscellaneous Notes* Telephone Encounter - Lidia Gar - 08/13/2023 4:14 PM EDT Mother stopped at office today 08/12 to continuous pickling line pickler letter. * Telephone Encounter - Vonnie Zavala LPN - 08/13/2023 8:46 AM EDT Mother called back today and wanted to know about the letter for this patient. Please advise. Vonnie Zavala LPN * Telephone Encounter - Austen Blevins MD - 08/05/2023 11:07 AM EDT OK to write patient the letter. I can sign it when the letter is done. Thanks, Austen Blevins MD * Telephone Encounter - Vonnie Zavala LPN - 08/05/2023 10:58 AM EDT Mother called and asked about a letter stating that the patient can take his factor on an airplane.He will be getting a case to put all of his supplies into. We can mail the letter out to the home address. Please advise. Vonnie Zavala LPN documented in this encounterMercy Hospital02-27-2024 History of Present illness Narrative* Austen Blevins MD - 07/20/2023 10:17 AM EST Sunita Harrington 1985 July 20, 2023 HPI: Sunita Harrington is a 38 year old male with history of Hemophilia A, CVA/TIA/ICH, seizures, valvulopathy, polysubstance abuse and left hip osteoarthritis s/p left hip arthroplasty 01/09/2021. Seen by Dr. Lyons in the past. He presents today for follow-up of hemophilia A. Remains on JIVI 6000 units 2-3 times a week. Occasional bleeding in right elbow and ankles. Chronic pain in right elbow. No unintentional weight loss, fever, chest pain, hortness of breath, abdominal pain, change in bowel movements. PAST MEDICAL HISTORY Diagnosis Date Coarctation of aorta (preductal) (postductal) Coarctation of aorta Congenital bicuspid aortic valve 01/02/2015 Monitor: pt will follow outpatient. 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 Based on current guidelines*, a repeat follow-up unenhanced low-dose CT can be obtained in 12 months at clinical discretion. Plan: Pt is aware, follow up w/ local MD. Post-op pain 09/09/2015 History: Pre-op h/o back pain treated w/ oxycodone 20mg q 6hrs prn and MS contin 30mg tid. MRI 09/08no evidence of discitis or osteomyelitis. Assessment: Verbalizes adequate pain relief on preop regimen. Plan: Continue Tylenol, lidoderm, and preop regimen of Oxycodone 20mg q 6hrs prn and MS Contin 30mg tid Pulmonary HTN (HCC) Seizure ([facility]) 09/26/2015 History: H/o seizures, on keppra preop Assessment: 09/20/15 post op seizure in ICU. No further events Plan: Continue keppra. Follow up w/ Neurology after discharge. Stroke ([facility]) 01/2015 2 x Brain hemorrhage (07/2014, 11/2014) Thoracic ascending aortic aneurysm ([facility]) Tooth decay 09/26/2015 History: Preop dental evaluation revealed gross decay and chronic abscess of tooth #2 Assessment: Dental recommended extraction of tooth #2. Plan: After clearance from ID, CTS, Hematology, pt underwent extraction #2 on 09/27/15. Continue amicar x 1 more dose today per Hematology. PAST SURGICAL HISTORY Procedure Laterality Date ABD AORTA ANEURYSM REPAIR 12/09/2009 replacement of ascending aorta with #28 Hemashield supracoronary graft. ANKLE SURGERY HX Bilateral x 2-3 each ankle, clean-outs CONGENITAL HEART SURGERY 05/24/1988 repair coarctation aorta CRANIOT TEMPORAL LOBE W/O ELECTROCORTICOGRAPHY Right 06/2014 CRANIOTOMY FOR LOBOTOMY Right 12/2014 Frontal HEART SURGERY HX 2016 re-do CTS HIP SURGERY HX Left 2002 KNEE SURGERY HX Left PICC LINE INSERT/CONSULT 01/08/2015 PICC LINE INSERT/CONSULT 02/05/2015 SHX AORTIC STENT 05/24/2005 aortic stenting secondary to re-stenosis Current Outpatient Medications Medication Sig Dispense Refill levETIRAcetam (KEPPRA) 750 mg tablet 2 tablets by ORAL/FEEDING TUBE route two times a day. 120 tablet 8 FLUoxetine (PROZAC) 40 mg capsule Take 1 capsule by mouth once daily. 90 capsule 0 FLUoxetine (PROZAC) 20 mg capsule Take 1 capsule by mouth once daily. Take with 40 mg dose for total daily dose of 60 mg. 90 capsule 3 JIVI 3,000 (+/-) unit solr Inject 6,230 Units intravenously two times a week. Inject 6230 (+/- 10 %) units every Wednesday and and (#4 prn breakthrough doses) 12 Each 5 No current facility-administered medications for this visit. ALLERGIES Allergen Reactions Asa [Salicylates] Intolerance Contrast Dye Other: See Comments History of contrast induced nephropathy-Per patient is allergic to CT DYE Nsaids (Non-Steroid* Other: See Comments Other reaction(s): Other FAMILY HISTORY Problem Relation Age of Onset Hypertension Father age 48 None Mother age 45 No Ocular Disease Other Seizures No Family History Social History Tobacco Use Smoking status: Never Smokeless tobacco: Never Vaping Use Vaping Use: Never used Substance Use Topics Alcohol use: Not Currently Comment: occasionally, once every 6 months Drug use: Yes Types: Marijuana, Opiates Comment: former uses; Last use of Opiates around 2019 I have confirmed and edited as necessary, the PFSH and ROS obtained by others on 07/20/2023. Review of Systems: All systems reviewed on 07/20/2023 with pertinent positives and negatives as outlined in the HPI. 07/20/23 1018 BP: 104/66 Pulse: 95 Temp: 36.4 C (97.5 F) TempSrc: Temporal SpO2: 97% Weight: 107 kg (236 lb) Height: 200.7 cm (6' 7) Body mass index is 26.59 kg/m . Physical Exam: ECOG PS: 1 Pain Intensity: 3 General: Age-appropriate well developed. NAD. HEENT: Normocephalic, no sclera icterus. Chest: Not labored. Heart: RRR Abdomen: NT, ND, BS+. Extremities: Pain in R elbow, deformed, limited ROM. Neurological: Grossly intact. Skin: No rashes or jaundice. Psychiatric: Alert and oriented x3. Appropriate mood and affect. Labs WBC (k/uL) Date Value 07/20/2023 5.32 RBC (m/uL) Date Value 07/20/2023 5.46 Hemoglobin (g/dL) Date Value 07/20/2023 13.9 Hematocrit (%) Date Value 07/20/2023 45.5 MCV (fL) Date Value 07/20/2023 83.3 MCH (pg) Date Value 07/20/2023 25.5 (L) MCHC (g/dL) Date Value 07/20/2023 30.5 RDW-CV (%) Date Value 07/20/2023 15.7 (H) Platelet Count (k/uL) Date Value 07/20/2023 206 MPV (fL) Date Value 07/20/2023 9.8 Glucose (mg/dL) Date Value 06/18/2022 93 BUN (mg/dL) Date Value 06/18/2022 12 Creatinine (mg/dL) Date Value 06/18/2022 1.16 Sodium (mmol/L) Date Value 06/18/2022 138 Potassium (mmol/L) Date Value 06/18/2022 4.8 Chloride (mmol/L) Date Value 06/18/2022 100 CO2 (mmol/L) Date Value 06/18/2022 30 Protein, Total (g/dL) Date Value 06/18/2022 7.2 Albumin (g/dL) Date Value 06/18/2022 3.9 Calcium, Total (mg/dL) Date Value 06/18/2022 9.5 Alkaline Phosphatase (U/L) Date Value 06/18/2022 61 Bilirubin, Total (mg/dL) Date Value 06/18/2022 0.7 AST (U/L) Date Value 06/18/2022 12 (L) ALT (U/L) Date Value 06/18/2022 13 Cholesterol, Total (mg/dL) Date Value 01/27/2015 129 Triglyceride (mg/dL) Date Value 01/27/2015 71 ASSESSMENT/PLAN: 1. Hemophilia A - Previously attempted to change to long acting, Emiczumab (hemlibra), patient refused. - Jivi inject 6000 units 2-3 times a week. - Amicar 5gm every 6 hours as needed (not taking). 2. 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 Lyons. Off narcotics. 3. Iron deficiency. - Lab work 07/20/23: Hgb 13.9, Ferritin 20.4, transferrin saturation 9.6%. - Recommend oral iron supplement 2 times weekly. Follow up in 1 year. Check CBC, Ferritin, iron+TIBC and Factor VIII. Call for questions or concerns. Austen Blevins MD Portions of this note including ROS, impression/plan, and examination may have been copied forward as to provide important historical information essential in contributing to medical decision making.Documentation has been reviewed and edited as necessary to support clinical decision making for today's visit 07/20/2023. Medical Decision Making: Problems: Moderate: 2+ stable chronic illnesses Data: Unique test result(s) reviewed: 3+ Unique test(s) ordered: 3+ Risk: Moderate: Moderate risk from testing/treatment Medical Decision Making Level: 4 - Moderate documented in this encounterMercy Hospital09-22-2023 Instructions* Patient Instructions* Marcela Jacob PA-C - 02/12/2023 2:50 PM EDT Osteobiflex triple- ask pharmacist documented in this encounterMercy Hospital09-22-2023 History of Present illness Narrative* Marcela Jacob PA-C - 02/12/2023 2:20 PM EDT 38 year old male with c/o medication review Mild recurrent depression Current meds: Fluoxetine 60mg daily Change in medication No. Currently in counseling? No. Any Medication side effects? No. Sleep disturbance? good. Loss of interest in usual pleasurable activities?No. Sense of guilt, shame, low self esteem?No. Energy: good Trouble with concentration? No. Changes in appetite? No. Changes in weight? No Psychomotor retardation: No Suicidal thoughts: No Racing thoughts? No. Interpersonal/ family conflicts? No. Irritability? No. Has girlfriend. Seizures 06/27/2022 [facility] ED visit stopped Keppra, break through seizures, loaded Keppra and sutured lac. No imaging 06/11/2022 [facility] ED: fell, hit head, seized, scalp lac, head injury/lac From records: 06/11: 30 year old male with history of hemophilia (Factor VIII deficiency), seizures, right occipital ICH and right frontal ICH in 2014, LMCA infarct (2014), past opiate abuse, infective endocarditisrequiring sternotomy (2014) coarctation of aorta with repair (2009) with redo with aortic valve, pulmonary HTN who presented to the [facility] as a trauma after a breakthrough seizure that resulted in a ground level fall. He had a subsequent seizure in the ED requiring intubation and had a head laceration requiring suturing. He was loaded with Keppra (4.5g) and given Factor VIII. He was autolaunched to NICU 06/12: Extubated and BEM negative. CTH stable. Hematology consulted for assistance of management of hemophilia and psych consulted for concern for patient suicidal ideation 06/13 Patient was transferred to the [facility] for further observation. 06/14 Patient was started on subcutaneous heparin twice a day for DVT prophylaxis which he deferred.Patient was currently dosing on advate twice a day for 7 days which kept him inpatient. BEM was discontinued 06/15 Psychiatry was consulted and recommended prozac to 40mg Qday and no indication for 1:1 sitter for passive statement of suicidal ideals. He stated that he was just joking around. Patient also vomitted twice with stable headache. A stat CT brain w/o contrast was completed demonstrating resolution of his prior hemorrhage. 06/16 Periactin and marinol were added to his regimen for nausea, vomiting and headache control. We discussed that he could be withdrawaling from drugs- marijuana etc. He states that this doesn't typically happen. 06/17 Patient reported resolution of his nausea. He did accidentally break the scab over the head laceration on the side of his bed. The bleeding was stopped with pressure. 06/18 Patient received last dose of advocate. There was concern for IV associated cellulitis on right antecubital. Patient was given 1 dose of vancomycin and then keflex 500mg QID x 7 days with instructions to follow up with his family doctor in 1 week after discharge to ensure that it has resolved. Followed with Vonnie 06/23/[address] chest nodule follow not completed. Consult neurology notcompleted Current medications: Levetiracetum 750mg 2 tabs by oral feeding tube Seizures controlled. No recent injuries. Chronic joints ankles and both elbows. Tylenol 325mg 5-6 at a time, may be three times a month. HISTORIES FAMILY HISTORY Problem Relation Age of Onset Hypertension Father age 48 None Mother age 45 No Ocular Disease Other Seizures No Family History PAST MEDICAL HISTORY Diagnosis Date Coarctation of aorta (preductal) (postductal) Coarctation of aorta Congenital bicuspid aortic valve 01/02/2015 Monitor: pt will follow outpatient. 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 Based on current guidelines*, a repeat follow-up unenhanced low-dose CT can be obtained in 12 months at clinical discretion. Plan: Pt is aware, follow up w/ local MD. Post-op pain 09/09/2015 History: Pre-op h/o back pain treated w/ oxycodone 20mg q 6hrs prn and MS contin 30mg tid. MRI 09/08no evidence of discitis or osteomyelitis. Assessment: Verbalizes adequate pain relief on preop regimen. Plan: Continue Tylenol, lidoderm, and preop regimen of Oxycodone 20mg q 6hrs prn and MS Contin 30mg tid Pulmonary HTN (HCC) Seizure (HCC) 09/26/2015 History: H/o seizures, on keppra preop Assessment: 09/20/15 post op seizure in ICU. No further events Plan: Continue keppra. Follow up w/ Neurology after discharge. Stroke ([facility]) 01/2015 2 x Brain hemorrhage (07/2014, 11/2014) Thoracic ascending aortic aneurysm (HCC) Tooth decay 09/26/2015 History: Preop dental evaluation revealed gross decay and chronic abscess of tooth #2 Assessment: Dental recommended extraction of tooth #2. Plan: After clearance from ID, CTS, Hematology, pt underwent extraction #2 on 09/27/15. Continue amicar x 1 more dose today per Hematology. PAST SURGICAL HISTORY Procedure Laterality Date ABD AORTA ANEURYSM REPAIR 12/09/2009 replacement of ascending aorta with #28 Hemashield supracoronary graft. ANKLE SURGERY HX Bilateral x 2-3 each ankle, clean-outs CONGENITAL HEART SURGERY 05/24/1988 repair coarctation aorta CRANIOT TEMPORAL LOBE W/O ELECTROCORTICOGRAPHY Right 06/2014 CRANIOTOMY FOR LOBOTOMY Right 12/2014 Frontal HEART SURGERY HX 2016 re-do CTS HIP SURGERY HX Left 2003 KNEE SURGERY HX Left PICC LINE INSERT/CONSULT 01/08/2015 PICC LINE INSERT/CONSULT 02/05/2015 SHX AORTIC STENT 05/24/2005 aortic stenting secondary to re-stenosis Social History Tobacco Use Smoking status: Never Smokeless tobacco: Never Vaping Use Vaping Use: Never used Substance Use Topics Alcohol use: Not Currently Comment: occasionally, once every 6 months Drug use: Yes Types: Marijuana, Opiates Comment: former uses; Last use of Opiates around 2019 ACTIVE PROBLEM LIST Congenital Bicuspid Aortic Valve 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 Coarctation of Aorta Summary Arthritis Pain Hemophilia A (Hcc) Chronic Pain 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 Dental Caries On Smooth Surface Penetrating into Pulp Retained Dental Root History of Left acute arterial ischemic stroke, MCA (middle cerebral artery) (HCC) Depression H/O Aortic Coarctation Repair Summary Back Pain Systolic Dysfunction Partial Epilepsy With Impairment of Consciousness, Intractable (Hcc) Complex Partial Seizures With Consciousness Impaired (Hcc) Secondary Osteoarthritis of Hip Hemophilic Arthropathy 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 Take with 40 mg dose for total daily dose of 60 mg. 90 capsule 0 FLUoxetine (PROZAC) 40 mg capsule Take 1 capsule by mouth once daily. 90 capsule 0 JIVI 3,000 (+/-) unit solr Inject 6,230 Units intravenously two times a week. Inject 6230 (+/- 10 %) units every Wednesday and and (#4 prn breakthrough doses) 12 Each 5 levETIRAcetam (KEPPRA) 750 mg tablet 2 tablets by ORAL/FEEDING TUBE route twice daily. 120 tablet 8 No current facility-administered medications for this visit. Hepatitis B Vaccine(1 of 3 - 3-dose series) Never done Covid-19 Vaccine(1) Never done DTaP,Tdap,Td Vaccine(5 - Tdap) due on 1998 Lipid Screening due on 2022 Influenza Vaccine(1) due on 01/22/2023 EXAM: BP 124/78 Pulse 97 Resp 16 Wt 104.8 kg (231 lb) SpO2 98% BMI 26.02 kg/m Pleasant well appearing young ma with delayed speech, mild cognitive deficits in communication in no acute distress. Alert and oriented all spheres. Normal affect and cognition. Speech normal. No deficits to learning or comprehension. Skin warm, dry, pink to lips and nailbeds. Normal turgor. Respirations regular and unlabored. HEENT: NCAT. No scleral icterus or conjunctival injection. TM's clear. Nose and oropharynx free from injection or lesion. Oral membranes moist and pink. No cervical lymph nodes. Thyroid non-tender, no masses, or enlargement. Carotids pulses 2+/4+ without bruits. No JVD with HOB at 30 degrees. Chest is normal shape. Lungs are clear to all mann with good air exchange through out. HRRR without murmur or gallop. No lifts, heaves, or rubs. Extrem: no clubbing or cyanosis. Edema: none. Extremities are warm and pink with prompt capillary refill. ASSESSMENT/PLAN: 1. Mild episode of recurrent major depressive disorder (HCC) - ICD9: 296.31, ICD10: F33.0 (primary diagnosis) Continue fluoxetine - CBC + DIFF - COMP METABOLIC PANEL 2. Seizure disorder (HCC) - ICD9: 345.90, ICD10: G40.909 - CBC + DIFF - COMP METABOLIC PANEL - LEVETIRACETAM 3. Screening for lipid disorders - ICD9: V77.91, ICD10: Z13.220 - LIPID PANEL BASIC 4. Encounter for immunization - ICD9: V03.89, ICD10: Z23 - TDAP VACCINE, AGE 7+ YR (ADACEL, BOOSTRIX) Complete labs Reviewed use of acetaminophen and risk with overdose: needs to limit to bottle instructions F/u as needed, at least annually Marcela Jacob PA-C documented in this encounterMercy Hospital09-20-2023 Miscellaneous Notes* Telephone Encounter - Paula Taveras - 02/10/2023 12:20 PM EDT Patient has been identified by name and date of : Yes Last office visit in this department: Visit date not found RX INSTRUCTIONS: Patient aware RX will be sent to pharmacy. No need to notify patient. Patient phones requesting refills as follows: next appt is 02/12 Requested Prescriptions Pending Prescriptions Disp Refills FLUoxetine (PROZAC) 20 mg capsule 30 capsule 1 Sig: Take 1 capsule by mouth once daily. Take with 40 mg dose for total daily dose of 60 mg. FLUoxetine (PROZAC) 40 mg capsule 90 capsule 0 Sig: Take 1 capsule by mouth once daily. Please review and advise. Paula Jama Pss documented in this encounterMercy Hospital09-05-2023 Miscellaneous Notes* Telephone Encounter - Lidia Mackey - 01/26/2023 1:16 PM EDT Received call from mother with request for Jivi refill to [facility]. Called specialty pharmacy to confirm dose of 6230 (+/- 10%) every Wednesday and , with requestfor #4 breakthrough bleed doses. documented in this encounterMercy Hospital07-13-2023 Miscellaneous Notes* Telephone Encounter - Ethel Mari - 12/03/2022 10:20 AM EDT Patient has been identified by name and date of : Yes Requested Prescriptions Pending Prescriptions Disp Refills FLUoxetine (PROZAC) 20 mg capsule 30 capsule 1 Sig: Take 1 capsule by mouth once daily. Take with 40 mg dose for total daily dose of 60 mg. FLUoxetine (PROZAC) 40 mg capsule 90 capsule 0 Si capsule once daily. RX INSTRUCTIONS: Patient aware RX will be sent to pharmacy. No need to notify patient. Ethel Adan documented in this encounterMercy Hospital05-11-2023 Miscellaneous Notes* Telephone Encounter - Laura Baez - 10/01/2022 4:09 PM EDT MODIFIED BRAD SCORE POST-DISCHARGE Telephone Visit Patient Name: Sunita Harrington Today's date: October 01, 2022 Date of discharge: June 18, 2022 Person giving information: N/A Contact information: [phone] Contact attempt: #1 09/03, #2 09/09, #3 09/23, #4 10/01 Patient discharge location: Home Patient current location: Home Presentation to ED or readmission after discharge: No Modified [place] Score: 90 days post discharge: 7 = Unable to reach patient/caregiver. Mortality: No Signature: Laura Baez October 01, 2022 4:13 PM documented in this encounterMercy Hospital02-27-2023 Miscellaneous Notes* Addendum Note - Jimmy Turner MD - 07/20/2022 10:44 AM ESTAddended by: JIMMY TURNER on: 07/20/2022 10:44 AM Modules accepted: Orders documented in this encounterMercy Hospital02-24-2023 Instructions* Patient Instructions* Jimmy Turner MD - 07/17/2022 3:46 PM EST [facility]. Below is a summary of topics regarding your seizures that we discussed. We would like you to continue your seizure medication, levetiracetam (or Keppra) two tablets (750 mg) twice daily. Follow up in6 months with Dr. Fernandez. For non-urgent questions and appointments you can contact our team via [employer]. For emergencies, please call 911 and report to your nearest emergency room. Sincerely, Jimmy Turner MD Office Here is a review of some of the things we discussed. What is epilepsy? Epilepsy is a disorder of the brain in which you are more likely to have epileptic seizures. Since seizures are not predictable, you must avoid doing anything that might cause danger to you orothers if you have another one. Therefore, until the seizures are under good control AND you are released by a physician, take these precautions. Precautions: -No driving per [place] state driving law. -No swimming or bathing alone or unless someone is present who can physically pull you out of the water should a seizure occur. Do not swim in a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 medications. Prescriptions sent to pharmacy. LEV 1500 mg BID The possibility of serious and adverse reactions were discussed in detail as well as proper use of medication. I discussed that not taking this medication as directed could worsen seizures and can bedangerous. I discussed the risks, benefits and alternatives of the medical plan with the patient. Questions were answered. The patient agreed with the plan as discussed. FOLLOW-UP: Return in about 6 months (around 01/14/2023), or if symptoms worsen or fail to improve. Jimmy Turner MD Epilepsy Fellow STAFF NOTE Patient personally interviewed and examined. Dr. Turner's history reviewed and verified. Exam as detailed above. Test results reviewed. Assessment and plan discussed. Briefly, this is a 37yo RH man with h/o hemophilia, endocarditis, multiple intracranial hemorrhages, and focal epilepsy with seizures since 01/2015 s/p right frontal ICH 12/2014 and left MCA stroke 01/2015. Localization is unclear based on clinical history and prior EEG (EEG seizures were nonlocalizable and no lateralizing features were noted clinically) and neuroimaging shows areas of encephalomalacia right parieto-occipital, right a nterior frontal, and left dorsal frontal. He is a patient of Dr. Fernandez, last seen 03/2021. He has had infrequent seizures over the years, typically related to medication noncompliance. He stopped LEV 10/2021 and had several seizures 05/2022 with resultant head injury and left SAH that did not require neurosurgical intervention. Prior to 05/2022, last seizure was 09/2018. He is now back on LEV 1500 BID, denies side effects; last clear seizure was 06/27/2022 on LEV 750 BID. Will continue current dose but they are to call if seizures recur. He will f/u with Dr. Fernandez. Seizure precautions discussed, including no driving. Dalila Back MD Epilepsy Staff documented in this encounterMercy Hospital02-22-2023 Instructions* Patient Instructions* Vonnie Man APRN.CNP - 07/15/2022 10:54 AM EST Increase prozac to 60 mg daily. Recheck in 1 month. documented in this encounterMercy Hospital02-22-2023 History of Present illness Narrative* Vonnie Man APRN.CNP - 07/15/2022 10:38 AM EST This is a 37 year old male who presents today with: Patient presents with: Discussion: Discuss increasing medication prozac, currently taking 40mg once daily. HISTORY OF PRESENT ILLNESS: Sunita Harrington is a 37 year old male. Patient presents with: Discussion: Discuss increasing medication prozac, currently taking 40mg once daily. Pt presents today because he thinks the prozac needs increased. Refers worsening depression. Refers started worsening after the head and elbow gets bad. Eating and drinking okay. Sleeping okay. Refers that sleeps a lot. Denies SI/HI. Has been on the prozac for about a year. Patient was recently in the emergency room on 06/27/2022. To review, he was discharged from the hospital on 06/18/2022, after a breakthrough seizure resultingin a head injury with a intracranial hemorrhage. The intracranial hemorrhage resolved during his hospital admission. He continued to have a scalp hematoma upon discharge. Reportedly on 06/27/2022, he awoke with his head being wet. When he looked at the area there was a large amount of blood coming from the site of the scalp hematoma. During his time in the emergency room he had multiple small seizures. The emergency room reached out to [facility] epilepsy team who advised to give him some IV Keppra and increase his home dose of Keppra. He had a total of 15 sutures placed in his scalp wound. He does have follow-up scheduled with neurology. PAST MEDICAL HISTORY: PAST MEDICAL HISTORY Diagnosis Date Coarctation of aorta (preductal) (postductal) Coarctation of aorta Congenital bicuspid aortic valve 01/02/2015 Monitor: pt will follow outpatient. 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 Based on current guidelines*, a repeat follow-up unenhanced low-dose CT can be obtained in 12 months at clinical discretion. Plan: Pt is aware, follow up w/ local . Post-op pain 09/09/2015 History: Pre-op h/o back pain treated w/ oxycodone 20mg q 6hrs prn and MS contin 30mg tid. MRI 09/08no evidence of discitis or osteomyelitis. Assessment: Verbalizes adequate pain relief on preop regimen. Plan: Continue Tylenol, lidoderm, and preop regimen of Oxycodone 20mg q 6hrs prn and MS Contin 30mg tid Pulmonary HTN (HCC) Seizure (HCC) 09/26/2015 History: H/o seizures, on keppra preop Assessment: 09/20/15 post op seizure in ICU. No further events Plan: Continue keppra. Follow up w/ Neurology after discharge. Stroke (HCC) 01/2015 2 x Brain hemorrhage (07/2014, 11/2014) Thoracic ascending aortic aneurysm (HCC) Tooth decay 09/26/2015 History: Preop dental evaluation revealed gross decay and chronic abscess of tooth #2 Assessment: Dental recommended extraction of tooth #2. Plan: After clearance from ID, CTS, Hematology, pt underwent extraction #2 on 09/27/15. Continue amicar x 1 more dose today per Hematology. PAST SURGICAL HISTORY Procedure Laterality Date ABD AORTA ANEURYSM REPAIR 12/09/2009 replacement of ascending aorta with #28 Hemashield supracoronary graft. ANKLE SURGERY HX Bilateral x 2-3 each ankle, clean-outs CONGENITAL HEART SURGERY 05/24/1988 repair coarctation aorta CRANIOT TEMPORAL LOBE W/O ELECTROCORTICOGRAPHY Right 06/2014 CRANIOTOMY FOR LOBOTOMY Right 12/2014 Frontal HEART SURGERY HX 2016 re-do CTS HIP SURGERY HX Left 2003 KNEE SURGERY HX Left PICC LINE INSERT/CONSULT 01/08/2015 PICC LINE INSERT/CONSULT 02/05/2015 SHX AORTIC STENT 05/24/2005 aortic stenting secondary to re-stenosis ALLERGIES Asa [Salicylates], Contrast Dye, and Nsaids (Non-Steroidal Anti- Inflammatory Drug) MEDICATIONS Current Outpatient Medications Medication Sig FLUoxetine (PROZAC) 40 mg capsule 1 capsule by ORAL/FEEDING TUBE route once daily. levETIRAcetam (KEPPRA) 750 mg tablet 1 tablet by ORAL/FEEDING TUBE route twice daily. senna (SENOKOT) 8.6 mg tab 1 tablet by ORAL/FEEDING TUBE route twice daily. No current facility-administered medications for this visit. FAMILY HISTORY Problem Relation Age of Onset None Mother age 45 Hypertension Father age 48 No Ocular Disease Other Social History Tobacco Use Smoking status: Never Smokeless tobacco: Never Vaping Use Vaping Use: Never used Substance Use Topics Alcohol use: Yes Comment: occasionally, once every 6 months Drug use: Yes Types: Marijuana, Opiates Comment: former uses; Last use of Opiates around 2019 EXAM: BP 118/70 Pulse 108 Resp 18 SpO2 99% PHYSICAL EXAM: General Appearance: Well appearing, alert, in no acute distress, well-hydrated, well nourished.. Skin: Skin color, texture, turgor normal, no suspicious rashes or lesions. Head: Normocephalic, no masses, lesions, tenderness or abnormalities. Eyes: Anicteric sclera. Extraocular movements are intact. Lungs: Lungs clear to auscultation. No wheezing, rhonchi, rales.. Heart: RRR without murmur, gallop, or rubs. No ectopy. Neurologic: Gait normal. ASSESSMENT/PLAN: 1. Mild episode of recurrent major depressive disorder (HCC) - ICD9: 296.31, ICD10: F33.0 (primary diagnosis) Will go ahead and increase the fluoxetine to 60 mg daily. Patient had lost some of his prozac pills at the pharmacy (during drive through pick-up, pills fellunder the car. Mother was advised to pull forward and when she did, ran over the bottle of pills. Per mother, pharmacy would not replace pills. She had to pick the pills up and dry them off, as it was raining, as well). Advised that if they are going to run out, we can send in another script (or a short term supply to local pharmacy on $4 program), but cannot guarantee insurance will cover. - FLUOXETINE 20 MG CAPSULE Recheck in a month. 2. Seizure disorder (HCC) - ICD9: 345.90, ICD10: G40.909 Continue per neurology. Discussed treatment plan and patient voices understanding. Patient's questions answered appropriately. Medications and potential side effects were discussed and patient voices understanding. Return to the office as scheduled or as needed for worsening/no improvement. Vonnie Man APRN.SULAIMAN This note was partially generated using Jalbum voice recognition system. Note was reviewed for accuracy. There may be minor misspellings or grammar miscues with Jalbum voice recognition. documented in this encounter[facility] Discharge summary Author Anish Villeda [facility] June 27, 2022 7:25am Note Date/Time June 27, 2022 6 :00am [facility] Medical Records Department [address] [place] [address] Emergency Department Summary 06/27/22 MR#: [id number] Acct: [id number] Name: SUNITA HARRINGTON Rep #:[id number] : 1985 37 From: Anish Villeda DO PCP: CINDY Rodriguez Status:REG E R Location: ED HPI History of Present Illness Chief Complaint: Laceration Narrative Narrative: Patient is a 37-year-old male with past medical history of hemophilia and seizure disorder. He had been on Keppra twice a day and then stopped his medication. Secondary to this he had a breakthrough seizures where he fell and struck his head sustaining a laceration. Reportedly the wound was closed at an outside hospital where he went to after his initial injury from the repetitive seizure roughly 1 week ago. Patient states that this evening he was sleeping and then awoke feeling like he had to use the bathroom and noticed that his headwas wet. He states when he touched the area there was a large amount of bloodand secondary to his EMS was called and he was brought in for evaluation. The patient states that there has been no repeat trauma since his initial injury andstates he has been taking his medications as directed [facility] Medical History Hemophilia hx of stroke Seizure Home Medications antihemophil FVIII,full length 1,000 (+/-) unit IV solution 12,000 unit IV QODAY07/07/16 [History Last Taken Unknown] levetiracetam 750 mg tablet 750 mg PO BID 09/22/18 [History Last Taken Unknown] citalopram 20 mg tablet PO #30 tabs 02/28/19 [History Last Taken Unknown] Allergy/AdvReac Type Severity Reaction Status Date / Time aspirin Allergy Other Verified 06/27/22 02:24 Iodinated Contrast Media Allergy Other Verified 06/27/22 02:24 [DYEE] NSAIDS (Non-Steroidal Allergy Other Verified 06/27/22 02:24 Anti-Inflamma Surgical History (Updated 08/25/21 @ 10:37 by Kamla Marquez) History of ankle surgery History of arthroscopy of left knee Hx of brain surgery Hx of heart surgery Social History (Updated 08/25/21 @ 10:38 by Kamla Marquez) Smoking Status: Never smoker alcohol intake: never ROS ROS ED Constitutional Constitutional ED: Denies chills or fever(s) Eyes Eyes: Denies change in vision ENT ENT ED: Denies sore throat Cardiovascular Cardiovascular: Denies chest pain Respiratory/Chest Respiratory/Chest: Denies cough or dyspnea Gastrointestinal Gastrointestinal: Denies abdominal pain, diarrhea, nausea or vomiting Genitourinary Genitourinary ED: Denies dysuria Musculoskeletal Musculoskeletal: Denies myalgias Integumentary Reports other Details: Positive scalp laceration Neurologic Neurologic: Denies headache(s) Hematologic/Lymphatic Hematologic/Lymphatic: Reports easy bleeding and easy bruising EXAM Physical Exam Const Vital Signs: 06/27/22 02:24 06/27/22 03:35 06/27/22 06:17 Temperature 96.8 F L Temperature Source Temporal Pulse Rate 74 81 75 Respiratory Rate 18 16 17 Blood Pressure 149/95 H 65/52 L 110/72 Blood Pressure Mean 113 56 84 Pulse Ox 99 96 99 Oxygen Delivery Method Room Air Room Air Room Air 06/27/22 07:00 Temperature Temperature Source Pulse Rate 90 Respiratory Rate 17 Blood Pressure 103/55 L Blood Pressure Mean 71 Pulse Ox 99 Oxygen Delivery Method Room Air Positive well nourished and well developed General Appearance ED: well developed HEENT Reports moist mucous membranes HEENT Narrative: Patient has a circular 1 x 1.5 cm laceration across the left upper occipital portion of his scalp. Patient has active bleeding from this but it is dark red nonpulsatile indicating it is a brisk venous bleed. Otherwise there are no signs of depressed or basilar skull fracture. Eyes PERRL and EOMs intact bilaterally General Eye ED: Negative for pale conjunctiva Neck supple Resp normal respiratory effort and clear to auscultation bilaterally Cardio regular rate and regular rhythm GI normal to inspection, nondistended, normoactive bowel sounds, non-tender, non-distended and no masses Auscultation: normoactive bowel sounds Palpation: soft Extremity normal to inspection Neuro oriented x3 and CN's II-XII intact bilaterally Sensorium / Orientation: alert Psych mental status grossly normal Skin Skin Narrative: Laceration to the scalp as documented above MDM MDM MDM Narrative Medical decision making narrative: Patient presented to the ER awake and alert with no report or signs of repeat trauma from his initial reported injury roughly 1 week ago. While patient was being triaged and his wound evaluated he did have 30 second to 1-minute seizure with postictal phase. Secondary to this basic blood work was obtained. As he had no report or signs of new trauma I did not feel there is need for repeat imaging studies. Blood work showed leukocytosis at 12.7 which is most likely stress response and otherwise no clinically significant finding. The patient went on to have 2 other seizures following the first for a total of 3 in the ER all lasting approximately 30 seconds and patient did have return to baseline mental status in between each seizure and therefore he is not in status epilepticus. Secondary to these recurrent seizures he was given 1 g of Keppra. Patient was also hydrated with a total of 3 L of fluid. The wound was closed as documented below. Following this as blood work revealed no clinically significant findings and his wounds been closed and not feel there is need for admission so we attempted to ambulate the patient. Upon doing so patient had another 30 second seizure with return to baseline mental status. Therefore at this time patient will be observed further and we will discuss the case with neurology to see if there is any need for further intervention or possible transfer at this time The case was discussed with the patient epilepsy team at [facility]. They feel patient should receive a second gram of IV Keppra and then have his home dose increased to 1500 mg twice a day. They recommend patient be watched for roughly another 3 hours and if there is no further seizure activity after this treatment then he is otherwise safe for discharge from their standpoint and can follow-up on an outpatient basis. This plan of care was discussed with the patient and mother and both are agreeable to it Patient had his scalp wound cleaned with chlorhexidine. It was anesthetized using 6 mL of 2% lidocaine with epinephrine local fashion. A total of fifteen 5-0 Vicryl sutures were then placed in simple interrupted fashion around the circular scalp wound. This brought the wound together good approximation and control bleeding. Patient tolerated procedure well without complication Lab Data Attestation: I reviewed the patient's lab results. Labs: Laboratory Results - last 24 hr 06/27/22 06/27/22 06/27/22 02:40 02:40 02:46 WBC 12.7 H RBC 3.95 L Hgb 11.1 L Hct 35.6 L MCV 90.1 MCH 28.1 MCHC 31.2 L RDW Std Deviation 45.8 H RDW Coeff of Abraham 14.0 Plt Count 401 MPV 9.2 Immature Gran % (Auto) 0.400 Neut % (Auto) 60.7 Lymph % (Auto) 31.1 [place] % (Auto) 6.3 Eos % (Auto) 1.1 Baso % (Auto) 0.4 Absolute Neuts (auto) 7.7 Absolute Lymphs (auto) 3.94 Nucleated RBC % 0 Sodium 140 Potassium 4.7 Chloride 107 Carbon Dioxide 23.0 Anion Gap 10 BUN 32 H Creatinine 1.19 Estim Creat Clear Calc 114.83 Est GFR (MDRD) Af Amer 89 Est GFR (MDRD) Non-Af 74 BUN/Creatinine Ratio 26.9 H Glucose 176 H Calcium 8.8 Magnesium 2.0 POC Glucose 136 H Discharge Plan Triage Chief Complaint: Laceration ED Provider: Anish Villeda Dx/Rx/DC Orders Clinical Impression: Laceration of scalp, Recurrent seizures, Hemophilia Instructions: ED Seizure, Recurrent (Adult) Prescriptions: No Action citalopram 20 mg tablet PO Qty: 30 antihemophil FVIII,full length 1,000 UNIT recon soln 12,000 unit IV QODAY Rx Instructions: 2x/week levetiracetam 750 MG tablet 750 mg PO BID Primary Care Provider: Marcela Jacob Referrals: Marcela Jacob PA [Primary Care Provider] - Activity Restrictions/Additional Instructions: Please increase your Keppra to 1500 mg(2 pills) by mouth twice a day for improved seizure control. The sutures placed in your scalp today are dissolvable and therefore do not need to be removed. They should dissolve in approximately 1 to 2 weeks. If you have any further concerns please return to the ER for repeat evaluation Disposition Disposition: Home, Self Care What to do if you have Problems For any increased pain, shortness of breath, bleeding, nausea or vomiting, chestpain, or any unexpected problems, contact your Primary Care Provider. Call [facility] ([phone]) or report to the closest Emergency Room. Call 911 if necessary. 06/27/22724 <Electronically signed by Anish Villeda DO> Cosigner Signature (if applicable): CC: CINDY Jacob ~ Signed [facility] Work Phone: [phone]) 646-638802-04-2023 Hospital Discharge instructions Additional Instructions Please increase your Keppra to 1500 mg(2 pills) by mouth twice a day for improved seizure control. The sutures placed in your scalp today are dissolvable and therefore do not need to be removed. They should dissolve in approximately 1 to 2 weeks. If you have any further concerns please return [facility] the [facility] Work Phone: [phone]) 199-328701-31-2023 Instructions* Patient Instructions* Vonnie Man APRN.CNP - 06/23/2022 3:32 PM EST Start the augmentin -- 1 pill by mouth twice daily X 5 days. If any recurrence of redness/swelling at the arm site, notify provider. 2. Schedule repeat chest CT in 6-12 months -- the order is in. 3. Follow-up with hematology, as planned. 4. Schedule with neurology. documented in this encounterMercy Hospital01-31-2023 History of Present illness Narrative* Vonnie Man APRN.CNP - 06/23/2022 2:40 PM EST Transitional Care Management Progress Note The patients TCM visit was performed within the 7 days of discharge. Patient's Date of discharge: 06/18/22 Date of initial coordinator contact after discharge: 06/19/22 Discharge diagnosis: Medication review completed Yes Vonnie Man APRN.CNP Provider Documentation: In follow-up of hospitalization, Sunita Harrington is a 37 year old male with the chief complaint of head pain. Presents today with mother. I have reviewed the patient s last hospital course including diagnostic testing performed during this hospitalization, their discharge medications, and my assessment and plan with the patient and anyfamily members present at today s visit. (Copied from discharge note) HOSPITAL COURSE: 06/11: 30 year old male with history of hemophilia (Factor VIII deficiency), seizures, right occipital ICH and right frontal ICH in 2014, LMCA infarct (2014), past opiate abuse, infective endocarditisrequiring sternotomy (2014) coarctation of aorta with repair (2009) with redo with aortic valve, pulmonary HTN who presented to the [facility] ED as a trauma after a breakthrough seizure that resulted in a ground level fall. He had a subsequent seizure in the ED requiring intubation and had a head laceration requiring suturing. He was loaded with Keppra (4.5g) and given Factor VIII. He was autolaunched to NICU 06/12: Extubated and BEM negative. CTH stable. Hematology consulted for assistance of management of hemophilia and psych consulted for concern for patient suicidal ideation 06/13 Patient was transferred to the [facility] for further observation. 06/14 Patient was started on subcutaneous heparin twice a day for DVT prophylaxis which he deferred.Patient was currently dosing on advate twice a day for 7 days which kept him inpatient. BEM was discontinued 06/15 Psychiatry was consulted and recommended prozac to 40mg Qday and no indication for 1:1 sitter for passive statement of suicidal ideals. He stated that he was just joking around. Patient also vomitted twice with stable headache. A stat CT brain w/o contrast was completed demonstrating resolution of his prior hemorrhage. 06/16 Periactin and marinol were added to his regimen for nausea, vomiting and headache control. We discussed that he could be withdrawaling from drugs- marijuana etc. He states that this doesn't typically happen. 06/17 Patient reported resolution of his nausea. He did accidentally break the scab over the head laceration on the side of his bed. The bleeding was stopped with pressure. 06/18 Patient received last dose of advocate. There was concern for IV associated cellulitis on right antecubital. Patient was given 1 dose of vancomycin and then keflex 500mg QID x 7 days with instructions to follow up with his family doctor in 1 week after discharge to ensure that it has resolved. Presents today with complaint of increased pain at the hematoma site. Refers that while he was in the hospital, he had an intractable headache. He had actually accidentally bumped the hematoma site which broke the area open and the subsequent bleeding relieved the intractable headache. He reports that over the last two days, he has more swelling and pain at the hematoma site. They were hoping that someone could drain the hematoma to help relieve his head pain. He reports that he is using a lot of tylenol and has been sleeping a lot because of the headache. Refers tried ice, but is painful. Per patient and mother, refers that he has been acting his normal self. Breathing is normal. No SOB. No CP/palpitations. He has been eating and drinking. No n/v. Urinating per normal. There was a suspected IV site infection at the right antecubital. He had a dose of vanco prior to discharge. He was started on cephalexin. Reports that he started having significant diarrhea. No hematochezia/melena. He stopped taking after his third dose yesterday. Does notice some improvement today. PAST MEDICAL HISTORY: Reviewed and updated ALLERGIES: Reviewed and updated MEDICATIONS: Reviewed and updated SOCIAL HISTORY: Reviewed and updated FAMILY HISTORY: Reviewed and updated REVIEW OF SYSTEMS: All other systems reviewed and negative, other than HPI. PHYSICAL EXAMINATION BP 126/82 Pulse 82 Resp 18 SpO2 97% General appearance: well appearing, alert, in no acute distress, and well- hydrated, well nourished,motor and sensory appear to be normal Lungs: clear to auscultation no wheezing or rhonchi Heart: RRR without murmur, gallop, or rubs. No ectopy Abdomen: Abdomen soft, non-tender. Bowel sounds normal. No masses, organomegaly Extremities: Extremities normal. No deformities, edema, or skin discoloration. Good capillary refill. Skin: left occipital scalp with appx golf-ball sized hematoma with a dark scab. right antecubital without redness/swelling. Still able to appreciate a palpable cord. 1. I have reviewed the patient record including associated test results during the last hospitalization Yes 2. I have reviewed Lab test Yes 3. I have reviewed Radiology test Yes 4. I reviewed assessment/plan with the patient/family member Yes ASSESSMENT/PLAN: 1. Hematoma of scalp, subsequent encounter - ICD9: V58.89, 920, ICD10: S00.03XD (primary diagnosis) Patient and mother interested in having drained, as when it broke open during hospitalization, he had improvement of headache. Discussed that this is not something we can do in this office setting. Did call and speak to gen surg office, and because of pt's hx, also declines at this time. Discussed with patient that he can continue to use tylenol per package directions and ice to the area. 2. Lung nodules - ICD9: 793.19, ICD10: R91.8 Noted to have lung nodule on recent CT during hospitalization. Aware of need to repeat imaging for surveillance in 6-12 months. Order is in. - CT CHEST WO IVCON 3. Seizure disorder (HCC) - ICD9: 345.90, ICD10: G40.909 Encouraged to follow-up with neurology. - CONSULT TO NEUROLOGY 4. Cellulitis of skin - ICD9: 682.9, ICD10: L03.90 Pt stopped the cephalexin d/t diarrhea. Will start 5 days of augmentin. Aware to notify provider if diarrhea continues/worsens. 5. SAH (subarachnoid hemorrhage) (HCC) - ICD9: 430, ICD10: I60.9 Improved/resolved during hospitalization. 6. 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 Discussed treatment plan and patient voices understanding. Patient's questions answered appropriately. Medications and potential side effects were discussed and patient voices understanding. Return to the office as scheduled or as needed for worsening/no improvement. Vonnie Man APRN.CNP June 23, 2022 11:24 AM This note was partially generated using Jalbum voice recognition system. Note was reviewed for accuracy. There may be minor misspellings or grammar miscues with Jalbum voice recognition. documented in this encounterMercy Hospital01-19-2023 History of Present illness Narrative* Cat Schaefer APRN.CNP - 06/11/2022 6:40 PM EST Images from the original note were not included. Critical Care Transport Note Patient Name: Sunita Harrington Service Date: 06/11/22 Referring Physician: Haider Referring Facility: [facility] Accepting Physician: Ronak Accepting Facility: [facility] SUBJECTIVE/CHIEF COMPLAINT: seizure REASON FOR TRANSPORT: Specialized tertiary and quaternary care for the patient's acute trauma and neurological condition not available at the referring facility. History of Present Illness: The following history is what was known to CCT team at time of given care and summarized through review of available medical records, patient/family interview and from referring physician and nursing report. Sunita Harrington is a 37 year old male with a past medical history significant for seizures (on Keppra, previously seizure free x 2 yrs), hemophilia A, congenital coarctation of aorta and bicuspid aortic valve, R occipital ICH (2015), previous L MCA infarct, CAD, HTN, HPL, pulmonary HTN, depression, lung nodule and opiate abuse hx. He presented to [facility] ED today around [address] a witnessed seizure and fall. Per report he was walking with is girlfriend at the time of onsetof seizure and fall. No report that he struck his head on anything other than the ground. On arrival to the ED he was having a seizure, he was given Ativan 4 mg and was intubated for airway protection. He was noted to have a large scalp laceration L posterior/lateral, initially it was bleeding a good bit. Initial CT head negative for acute process and chr encephalomalacia. Cervical spine, CT abd/pelvis, CT chest all neg for acute process. He was given Keppra 1 gm IV. He was given Factor VIII, labetalol 10 mg and Zosyn. Propofol and Fentanyl started for sedation. A repeat CT head was done ~3.5hrs after first and it showed acute SAH. Given his hx of hemophilia and complex neuro status, decision made to transfer the patient to [facility]. Of note, his tox screen was positive for amphetamines and cannabinoids. At this time, the physician managing the patient requested transfer to the [facility] for tertiary and/or quaternary services unavailable at the referring facility. The physician managing the patient requested the [facility] Critical Care Transport Team transport and treat the patient for the purpose of tertiary care, evaluation, and management of his acute traumatic SAH condition(s). Air medical transport was requested to reduce the [id number] time, 13 minutes by air vs. approximately 45 minutes by ground, with the potential for increased ground transport time secondary to: distance between facilities and the patient's condition requiring an emergent procedure or evaluation not available at the referring facility and distance between facilities and ground round transport time would be excessive and detrimental to patient given current clinical status ROS: Could not obtain due to patient's mental status/critical illness PAST MEDICAL HISTORY: PAST MEDICAL HISTORY Diagnosis Date Coarctation of aorta (preductal) (postductal) Coarctation of aorta Congenital bicuspid aortic valve 01/02/2015 Monitor: pt will follow outpatient. 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 Based on current guidelines*, a repeat follow-up unenhanced low-dose CT can be obtained in 12 months at clinical discretion. Plan: Pt is aware, follow up w/ local MD. Post-op pain 09/09/2015 History: Pre-op h/o back pain treated w/ oxycodone 20mg q 6hrs prn and MS contin 30mg tid. MRI 09/08no evidence of discitis or osteomyelitis. Assessment: Verbalizes adequate pain relief on preop regimen. Plan: Continue Tylenol, lidoderm, and preop regimen of Oxycodone 20mg q 6hrs prn and MS Contin 30mg tid Pulmonary HTN (HCC) Seizure (HCC) 09/26/2015 History: H/o seizures, on keppra preop Assessment: 09/20/15 post op seizure in ICU. No further events Plan: Continue keppra. Follow up w/ Neurology after discharge. Stroke (HCC) 01/2015 2 x Brain hemorrhage (07/2014, 11/2014) Thoracic ascending aortic aneurysm Tooth decay 09/26/2015 History: Preop dental evaluation revealed gross decay and chronic abscess of tooth #2 Assessment: Dental recommended extraction of tooth #2. Plan: After clearance from ID, CTS, Hematology, pt underwent extraction #2 on 09/27/15. Continue amicar x 1 more dose today per Hematology. PAST SURGICAL HISTORY: PAST SURGICAL HISTORY Procedure Laterality Date ABD AORTA ANEURYSM REPAIR 12/09/2009 replacement of ascending aorta with #28 Hemashield supracoronary graft. ANKLE SURGERY HX Bilateral x 2-3 each ankle, clean-outs CONGENITAL HEART SURGERY 05/24/1988 repair coarctation aorta CRANIOT TEMPORAL LOBE W/O ELECTROCORTICOGRAPHY Right 06/2014 CRANIOTOMY FOR LOBOTOMY Right 12/2014 Frontal HEART SURGERY HX 2016 re-do CTS HIP SURGERY HX Left 2002 KNEE SURGERY HX Left PICC LINE INSERT/CONSULT 01/08/2015 PICC LINE INSERT/CONSULT 02/05/2015 SHX AORTIC STENT 05/24/2005 aortic stenting secondary to re-stenosis ALLERGIES: Asa [Salicylates], Contrast Dye, and Nsaids (Non-Steroidal Anti- Inflammatory Drug) SOCIAL HISTORY: Social History Tobacco Use Smoking status: Never Smokeless tobacco: Never Vaping Use Vaping Use: Never used Substance Use Topics Alcohol use: Yes Comment: occasionally, once every 6 months Drug use: Yes Types: Marijuana, Opiates Comment: former uses; Last use of Opiates around 2019 HOME MEDICATIONS: Unknown to CCT at the time of transport Medications Administered by Referring Facility: Fentanyl 50 mcg/hr Propofol 15 mcg/kg/min Keppra 1 gm NS 0.9% IV fluids Labetalol 10 mg IV Antihemophilic factor VIII 4,500 units Ativan 4 mg IV OBJECTIVE: Recent Labs, Diagnostics & Procedure Reports reviewed as available. Referring Facility Labs Latest Reference Range & Units 06/11/22 11:35 WBC 3.70 - 11.00 k/uL 16.92 (H) RBC 4.20 - 6.00 m/uL 6.28 (H) Hemoglobin 13.0 - 17.0 g/dL 17.7 (H) Hematocrit 39.0 - 51.0 % 56.0 (H) Platelet Count 150 - 400 k/uL 273 MCV 80.0 - 100.0 fL 89.2 MCH 26.0 - 34.0 pg 28.2 MCHC 30.5 - 36.0 g/dL 31.6 MPV 9.0 - 12.7 fL 8.9 (L) RDW-CV 11.5 - 15.0 % 13.2 Latest Reference Range & Units 06/11/22 11:35 Sodium 136 - 144 mmol/L 146 (H) Potassium 3.7 - 5.1 mmol/L 3.9 Chloride 97 - 105 mmol/L 101 CO2 22 - 30 mmol/L 15 (L) BUN 9 - 24 mg/dL 17 Creatinine 0.73 - 1.22 mg/dL 1.18 Glucose 74 - 99 mg/dL 92 Protein, Total 6.3 - 8.0 g/dL 8.5 (H) Calcium 8.5 - 10.2 mg/dL 11.0 (H) Albumin 3.9 - 4.9 g/dL 4.8 Bilirubin, Total 0.2 - 1.3 mg/dL 0.8 Alkaline Phosphatase 38 - 113 U/L 89 ALT 10 - 54 U/L 36 AST 14 - 40 U/L 31 Anion Gap 9 - 18 mmol/L 30 (H) Lipase 16 - 61 U/L 23 eGFR >=60 mL/min/1.73m 83 Ethanol <11 mg/dL <11 AMBROSE High Sensitivity <12 ng/L 14 (H) (H): Data is abnormally high (L): Data is abnormally low Latest Reference Range & Units 06/11/22 12:37 PT Sec 9.7 - 13.0 sec 10.3 PT INR 0.9 - 1.3 1.0 APTT 23.0 - 32.4 sec 37.3 (H) (H): Data is abnormally high Latest Reference Range & Units 06/11/22 12:29 Amphetamines Negative Preliminary positive ! Barbiturates Negative Negative Benzodiazepines Urine Negative Negative Cocaine Urine Negative Negative Cannabinoids, Urine Negative Preliminary positive ! Ethanol, Urine <11 mg/dL <11 Opiates Negative Negative Phencyclidine Negative Negative Oxycodone, Urine Negative Negative !: Data is abnormal Diagnostics & Procedure Reports ECG: NSR, rate 93, incomplete RBBB, QTc 489 CT Scan head 1235: (per OSH radiology report) No acute intracranial abnormality is seen. Multiple areas of chronic encephalomalacia, similar compared to 2016. CT scan head 1546: (per OSH radiology report) New subarachnoid hemorrhage in the left ambient cistern. CT cervical spine: (per OSH radiology report) No definite CT evidence of acute osseous abnormality of the cervical spine. Postoperative and chronic intracranial changes. Correlate with dedicated CT brain study findings. Oral endotracheal tube terminating at T2. Oral enteric tube extending into the esophagus. CT chest: (per OSH radiology report) Endotracheal tube with the tracheal airway terminating at T2 and enteric tube within the thoracic esophagus extending into the stomach. 6 mm pleural-based nodule superior segment left lower lobe. A follow-up CT chest study at 6-12 months is recommended. Bilateral posterobasal atelectasis with small volume consolidative opacities within the extreme posterior costophrenic angles. No hemothorax or pneumothorax. Redemonstrated postoperative changes of repair of the ascending thoracic aorta with supracoronary aortic graft placement and findings of aortic coarctation with endovascular stent redemonstrated within the proximal descending thoracic aorta at the isthmus. In-stent diameter is approximately 1.4 cm as measured in the sagittal plane. Aortic valve prosthesis. Mild distended upper and mid thoracic esophagus. Multilevel thoracic vertebral body compression deformities from T2-T9 as detailed above. There is endplate sclerosis at T3 and T6. The paravertebral planes appear maintained and there is no retropulsed fracture fragment. Findings appear new since MRI thoracic spine 08/2015. CT abd/pelvis: (per OSH radiology report) No definite CT evidence of acute intra-abdominal abnormality. Moderate retained recently ingested and/or retained material within the stomach. Mild distended gallbladder. Enteric tube terminating within the proximal stomach. Merlos catheter balloon within the collapsed urinary bladder. Procedure/Operative Report(s): Reviewed Invasive Lines/Devices/Tubes Placed by Referring Facility: PIV x 3 ETT OGT Merlos cath PHYSICAL EXAM: Upon CCT Arrival at Referring Facility Vital Signs: HR 89bpm, BP 133/77(98)mmHg, RR 22, SpO2 99% Oxygen/Ventilator Settings: AC/VC 22-500-45%-5+ General appearance: Intubated, sedated. HEENT: Left posterior lateral head with laceration, approx 3 inches, sutures in place, bleeding controlled and associated edema and bruising. Normocephalic. Oropharynx clear, no plaques or exudates, Mucous membranes moist, Nasal mucosa non-edematous, and No rhinorrhea Respiratory: clear to auscultation bilaterally, no respiratory distress, no rales, no rhonchi, no wheezing, no retractions, no cyanosis. Cardiovascular: no murmurs, no rubs, no gallops, regular rate and rhythm, peripheral pulses symmetric. No peripheral edema noted. Extremities warm, cap refill < 3 sec Gastrointestinal: soft, nontender, nondistended, no organomegaly, normal bowel sounds, and no masses. Genitourinary: Exam deferred, Merlos cath present, urine clear and yellow Musculoskeletal: No clubbing, cyanosis or edema, no joint swelling, no bony tenderness, and no deformities Skin: See HEENT. Normal, no abrasions or open wounds, no rashes noted Heme/Lymph: No petechiae. No abnormal bruising or bleeding noted Neurologic: Intubated, sedated. Awakens, moves all extremities, lifts head to stimulation, not following commands, no eye opening. GCS Eyes: 1: None Verbal: T: Intubated Motor: 3: Flexion to pain (decorticate) Total: 5T NIHSS: 1(a). Mental Status - LOC 3 = Comatose 1(b). LOC Questions 2 = Neither 1(c). LOC-Commands 2 = Neither 2. Gaze 2 = Forced deviation or gaze palsy 3. Visual Mann 0 = Full 4. Facial Weakness 0 = Normal 5(a). Left Arm 2 = Some antigravity but hits bed 5(b). Right Arm 2 = Some antigravity but hits bed 6(a). Left Leg 2 = Some antigravity but hits bed 6(b). Right Leg 2 = Some antigravity but hits bed 7. Ataxia 0 = Absent 8. Sensory 0 = Normal 9. Aphasia 3 = Mute, Global, Coma 10. Dysarthria UN= Intubated or other physicial barrier. explain: intubated 11. Neglect 0 = None NIHSS Total (0-42): 20 CRITICAL CARE COURSE Upon bedside arrival at referring facility the patient was assessed and detailed physical exam performed. Initial exam findings as described above. The patient was placed on the transport monitor andall transport equipment transitioned in standard fashion. Initial exam as noted above, pt remains intubated, sedated. Moving all extremities independently, lifting head, coughing against ETT when stimulated, bolus of fentanyl given with improvement in sedation. Pt not following commands or opening eyes. SBP well controlled, no additional antihypertensives required. The patient was transferred to the transport cot and transported to the Aircraft and loaded without incident. En-route, SBP dropped to 100s-110s, NS 0.9% IV bolus started. The patient was medically managed, monitored, and reassessed during transport. Medications Managed & Administered by CCT: Propofol - continued and titrated Fentanyl infusion - continued and titrated Fentanyl 50 mcg IV bolus NS 0.9% 500 ml IV bolus Procedures Performed by CCT: Ventilator management ASSESSMENT/PLAN: Sunita Harrington is a 37 year old male with known hx of hemophilia admitted to OSH s/p seizure and fall, striking his L posterior/lateral head on the ground. He has known hx of seizure, has been seizure free x [address] head neg for acute process. Follow up [address] head showed acute SAH. Acute traumatic subarachnoid hemorrhage Seizure Acute respiratory failure Hemophilia A - Initial exam as noted above, pt intubated, sedated with propofol and fentanyl infusions - s/p fall from standing during seizure, striking L post/lateral head on ground - Known hx of seizure, per family seizure free x 2 yrs, takes Keppra at home - Known hx of Hemophilia A - Factor VIII given by ED - Initial CT head neg for acute process, 4 hr follow up showed L SAH - Ativan 4 mg and Keppra 1 gm given by ED for seizure - Intubated for airway protection on admission - Vent set AC/VC 22-500-45%-5+ - Goal SaO2 > 93%, < 99%, ETCO2 35-45 - SBP well controlled, no antihypertensives req during transport - Goal SBP 120-140 mmHg - NS 0.9% bolus for hypotension - Sedation as needed with propofol and fentanyl - Expedite transport to [facility] for further workup and care The transport was completed without significant incident or change in the patient's status. The patient was transported to the the [facility] by [employer]otor (Helicopter) for tertiary and/or quaternary evaluation and management of his Emergent Medical and Surgical condition(s). Upon arrival to the receiving facility, a [id number] report was given to bedside nursing staff Madhu and SANDRO Farrell . Patient care was transferred. The patient condition was Critical and Acutely Ill at the time of transfer. Vital Signs at time care transferred to the receiving facility unit: HR 103bpm, Rhythm ST, BP 127/85(99) mmHg, RR 18, SpO2 100% on FiO2 30%, ETCO2 39 SPECIAL EQUIPMENT: None MODE OF TRANSPORT: [employer] (Helicopter) CRITICAL CARE TIME:I personally performed 45 minutes of critical care time exclusive of separately billable procedures, ambulance charges and treating other patients. This was necessary to treat or prevent further deterioration of the following condition(s): Acute traumatic SAH, acute respiratory failure, seizure and the Cardiovascular impairment, Respiratory impairment, SENIOR SAS DEVELOPER impairment, Shock, Cardiac Arrest, and Severe metabolic abnormality which the patient had and/or had a high probability of suddenly developing. SIGNATURE: Cat Schaefer APRN.CNP Acute Care Nurse Practitioner [facility] Critical Care Transport Team documented in this encounterMercy Hospital12-28-2022 Miscellaneous Notes* Telephone Encounter - Lidia Gar Sec - 05/20/2022 12:30 PM EST Request Rama refill to [facility]. documented in this encounterMer[facility] Hospital12-[facility]-2022 History of Present illness Narrative* Austen Blevins MD - 04/27/2022 11:50 AM EST Sunita Harrington 1985 April 27, 2022 HPI: Sunita Harrington is a 37 year old male with history of Hemophilia A, CVA/TIA/ICH, seizures, valvulopathy, polysubstance abuse and left hip osteoarthritis s/p left hip arthroplasty 01/09/2021. Seen by Dr. Lyons in the past. Remains on JIVI 6000 units 2-3 times a week. Reports chronic pain in right elbow. Occasional bleeding in right elbow and ankles. No unintentional weight loss, fever, chest pain, hortness of breath, abdominal pain, change in bowel movements. PAST MEDICAL HISTORY Diagnosis Date Coarctation of aorta (preductal) (postductal) Coarctation of aorta Congenital bicuspid aortic valve 01/02/2015 Monitor: pt will follow outpatient. 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 Based on current guidelines*, a repeat follow-up unenhanced low-dose CT can be obtained in 12 months at clinical discretion. Plan: Pt is aware, follow up w/ local MD. Post-op pain 09/09/2015 History: Pre-op h/o back pain treated w/ oxycodone 20mg q 6hrs prn and MS contin 30mg tid. MRI 09/08no evidence of discitis or osteomyelitis. Assessment: Verbalizes adequate pain relief on preop regimen. Plan: Continue Tylenol, lidoderm, and preop regimen of Oxycodone 20mg q 6hrs prn and MS Contin 30mg tid Pulmonary HTN (HCC) Seizure (HCC) 09/26/2015 History: H/o seizures, on keppra preop Assessment: 09/20/15 post op seizure in ICU. No further events Plan: Continue keppra. Follow up w/ Neurology after discharge. Stroke (HCC) 01/2015 2 x Brain hemorrhage (07/2014, 11/2014) Thoracic ascending aortic aneurysm Tooth decay 09/26/2015 History: Preop dental evaluation revealed gross decay and chronic abscess of tooth #2 Assessment: Dental recommended extraction of tooth #2. Plan: After clearance from ID, CTS, Hematology, pt underwent extraction #2 on 09/27/15. Continue amicar x 1 more dose today per Hematology. PAST SURGICAL HISTORY Procedure Laterality Date ABD AORTA ANEURYSM REPAIR 12/09/2009 replacement of ascending aorta with #28 Hemashield supracoronary graft. ANKLE SURGERY HX Bilateral x 2-3 each ankle, clean-outs CONGENITAL HEART SURGERY 05/24/1988 repair coarctation aorta CRANIOT TEMPORAL LOBE W/O ELECTROCORTICOGRAPHY Right 06/2014 CRANIOTOMY FOR LOBOTOMY Right 12/2014 Frontal HEART SURGERY HX 2016 re-do CTS HIP SURGERY HX Left 2002 KNEE SURGERY HX Left PICC LINE INSERT/CONSULT 01/08/2015 PICC LINE INSERT/CONSULT 02/05/2015 SHX AORTIC STENT 05/24/2005 aortic stenting secondary to re-stenosis Current Outpatient Medications Medication Sig Dispense Refill citalopram (CELEXA) 20 mg tablet Take by mouth. Antihemophilic Factor, Recomb, (KOGENATE) 250 (+/-) unit solr Inject intravenously. levETIRAcetam (KEPPRA) 750 mg tablet Take 2 tablets by mouth twice daily. 360 tablet 0 FLUoxetine (PROZAC) 40 mg capsule Take 1 capsule by mouth once daily. 30 capsule 5 sodium chloride 0.9 %, flush, (NORMAL SALINE FLUSH) syringe Flush IV line with 5 -10mL Sodium Chloride 0.9% solution DIRECTED. Discard remainder of syringe after single use. 30 mL 10 cyclobenzaprine (FLEXERIL) 10 mg tablet Take 1 tablet by mouth three times daily as needed for muscle spasm. 40 tablet 0 FVIII rec,B-dom delet peg-aucl (JIVI) 3,000 (+/-) unit solr RECONSTITUTE THEN ADMINISTER JIVI 6230 UNITS (3115 x 2 )EVERY WEDNESDAY AND WEDNESDAY AND FOR BREAKTHROUGH BLEEDS. 20 Each 11 omeprazole (PRILOSEC) 20 mg capsule Take 1 capsule by mouth once daily. 42 capsule 0 lidocaine viscous (LIDOCAINE VISCOUS) 2 % solution Soak cotton ball in solution and place adjacent to gum of painful tooth every 2 hours as needed. 120 mL 1 predniSONE (DELTASONE) 20 mg tablet Take 2 tablets by mouth once daily. (Patient not taking: Reported on 04/27/2022) 10 tablet 0 pregabalin (LYRICA) 150 mg capsule take 1 capsule by mouth twice a day (Patient not taking: Reported on 04/27/2022) 60 capsule 5 amoxicillin (POLYMOX, AMOXIL) 500 mg capsule 4 po one hour before procedure. (Patient not taking: Reported on 04/27/2022) 4 capsule 1 No current facility-administered medications for this visit. ALLERGIES Allergen Reactions Asa [Salicylates] Intolerance Contrast Dye Other: See Comments History of contrast induced nephropathy-Per patient is allergic to CT DYE Nsaids (Non-Steroid* Other: See Comments Other reaction(s): Other FAMILY HISTORY Problem Relation Age of Onset None Mother age 45 Hypertension Father age 48 No Ocular Disease Other Social History Tobacco Use Smoking status: Never Smokeless tobacco: Never Vaping Use Vaping Use: Never used Substance Use Topics Alcohol use: Yes Comment: occasionally, once every 6 months Drug use: Yes Types: Marijuana, Opiates Comment: former uses; Last use of Opiates around 2019 I have confirmed and edited as necessary, the PFSH and ROS obtained by others on 04/27/2022. Review of Systems: All systems reviewed on 04/27/2022 with pertinent positives and negatives as outlined in the HPI. 04/27/22 1143 BP: 144/83 Pulse: 103 Temp: 36.8 C (98.2 F) TempSrc: Temporal SpO2: 97% Weight: 101.2 kg (223 lb) Height: 200.7 cm (6' 7) Body mass index is 25.12 kg/m . Physical Exam: ECOG PS: 1 Pain Intensity: 2 General: Age-appropriate well developed. NAD. HEENT: Normocephalic, no sclera icterus. Chest: Not labored. Heart: RRR Abdomen: NT Extremities: Pain in R elbow, deformed. Neurological: Grossly intact. Skin: No rashes or jaundice. Psychiatric: Alert and oriented x3. Appropriate mood and affect. Labs WBC (k/uL) Date Value 04/27/2022 7.58 RBC (m/uL) Date Value 04/27/2022 5.38 Hemoglobin (g/dL) Date Value 04/27/2022 15.3 Hematocrit (%) Date Value 04/27/2022 44.1 MCV (fL) Date Value 04/27/2022 82.0 MCH (pg) Date Value 04/27/2022 28.4 MCHC (g/dL) Date Value 04/27/2022 34.7 RDW-CV (%) Date Value 04/27/2022 12.8 Platelet Count (k/uL) Date Value 04/27/2022 217 MPV (fL) Date Value 04/27/2022 9.1 Glucose (mg/dL) Date Value 01/19/2021 94 BUN (mg/dL) Date Value 01/19/2021 17 Creatinine (mg/dL) Date Value 01/19/2021 0.72 (L) Sodium (mmol/L) Date Value 01/19/2021 137 Potassium (mmol/L) Date Value 01/19/2021 4.5 Chloride (mmol/L) Date Value 01/19/2021 100 CO2 (mmol/L) Date Value 01/19/2021 29 Protein, Total (g/dL) Date Value 01/19/2021 6.7 Albumin (g/dL) Date Value 01/19/2021 3.7 (L) Calcium (mg/dL) Date Value 01/19/2021 8.8 Alkaline Phosphatase (U/L) Date Value 01/19/2021 68 Bilirubin, Total (mg/dL) Date Value 01/19/2021 0.9 AST (U/L) Date Value 01/19/2021 25 ALT (U/L) Date Value 01/19/2021 25 Cholesterol, Total (mg/dL) Date Value 01/27/2015 129 Triglyceride (mg/dL) Date Value 01/27/2015 71 ASSESSMENT/PLAN: 1. Hemophilia A - Previously attempted to change to long acting, Emiczumab (hemlibra), patient refused. - Jivi inject 6000 units every Wednesday and , and for breakthrough bleed. - Amicar 5gm every 6 hours as needed (not taking). 2. 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 Lyons. Off narcotics. 3. Normocytic anemia. - Intermittent, secondary to bleeding. - Normal CBC and iron profile today. Follow up in 1 year. Check CBC, Ferritin, iron+TIBC and Factor VIII. Call for questions or concerns. Austen Blevins MD Portions of this note including ROS, impression/plan, and examination may have been copied forward as to provide important historical information essential in contributing to medical decision making.Documentation has been reviewed and edited as necessary to support clinical decision making for today's visit 04/27/2022. Medical Decision Making: Problems: Moderate: 2+ stable chronic illnesses Data: Unique test result(s) reviewed: 3+ Unique test(s) ordered: 3+ Risk: Moderate: Drug management Medical Decision Making Level: 4 - Moderate documented in this encounterMercy Hospital12-01-2022 History of Present illness Narrative* Macy Bourgeois APRN.CANCER CENTER DIRECTOR - 04/23/2022 2:16 PM EST Patient came in with complaints of feeling like a wire was poking through his throat. Patient was having pain in his throat. Patient did have some previous cardiac surgeries with wires that lead op his throat. Patient called the cardiology office that he has not been to since 2016 and she said theywanted him to get an xray. I call cardiology office and they told me that he was told to report to the emergency room for examination. Upon telling patient that he should go to the ER for an evaluation due to severity of the problem patient got upset. Patient did not want to go to the ER where sickpeople were. Did mention again he should have a full evaluation at ER for his safety. documented in this encounterMercy Hospital11-21-2022 Miscellaneous Notes* Telephone Encounter - Edin Cobb PA-C - 04/13/2022 8:40 AM EST The following approved medication requests have been transmitted electronically. Requested Prescriptions Signed Prescriptions Disp Refills levETIRAcetam (KEPPRA) 750 mg tablet 360 tablet 0 Sig: Take 2 tablets by mouth twice daily. Authorizing Provider: EDIN COBB PA-C documented in this encounterMer[facility]10-13-2022 History of Present illness Narrative* Bryanna Scott MD - 03/05/2022 1:19 PM EDTAssociated Order(s): Medium Joint Arthro/Inj: R elbow joint Post-Procedure Diagnose(s): Avascular necrosis of bone (HCC) Follow up: right elbow pain and stiffness HPI: Mr. Harrington is a right hand dominant 37 year old male with PMH of hemophilia with a factor VIII deficiency with a chief complaint of right elbow pain and decreased ROM. The symptoms have remained constant since the last visit. Evaluation to date has included XR and MRI. Treatment to date has included multiple steroid injections with no relief. The symptoms are improved by rest and exacerbated by activity. The current symptoms are rated a 6/10 and interfere with day to day activities and hobbies. PAST MEDICAL HISTORY Diagnosis Date Coarctation of aorta (preductal) (postductal) Coarctation of aorta Congenital bicuspid aortic valve 01/02/2015 Monitor: pt will follow outpatient. 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 Based on current guidelines*, a repeat follow-up unenhanced low-dose CT can be obtained in 12 months at clinical discretion. Plan: Pt is aware, follow up w/ local MD. Post-op pain 09/09/2015 History: Pre-op h/o back pain treated w/ oxycodone 20mg q 6hrs prn and MS contin 30mg tid. MRI 09/08no evidence of discitis or osteomyelitis. Assessment: Verbalizes adequate pain relief on preop regimen. Plan: Continue Tylenol, lidoderm, and preop regimen of Oxycodone 20mg q 6hrs prn and MS Contin 30mg tid Pulmonary HTN (HCC) Seizure (HCC) 09/26/2015 History: H/o seizures, on keppra preop Assessment: 09/20/15 post op seizure in ICU. No further events Plan: Continue keppra. Follow up w/ Neurology after discharge. Stroke (HCC) 01/2015 2 x Brain hemorrhage (07/2014, 11/2014) Thoracic ascending aortic aneurysm (HCC) Tooth decay 09/26/2015 History: Preop dental evaluation revealed gross decay and chronic abscess of tooth #2 Assessment: Dental recommended extraction of tooth #2. Plan: After clearance from ID, CTS, Hematology, pt underwent extraction #2 on 09/27/15. Continue amicar x 1 more dose today per Hematology. Current Outpatient Medications Medication Sig Dispense Refill FLUoxetine (PROZAC) 40 mg capsule Take 1 capsule by mouth once daily. 30 capsule 5 sodium chloride 0.9 %, flush, (NORMAL SALINE FLUSH) syringe Flush IV line with 5 -10mL Sodium Chloride 0.9% solution DIRECTED. Discard remainder of syringe after single use. 30 mL 10 levETIRAcetam (KEPPRA) 750 mg tablet Take 2 tablets by mouth twice daily. 360 tablet 0 cyclobenzaprine (FLEXERIL) 10 mg tablet Take 1 tablet by mouth three times daily as needed for muscle spasm. 40 tablet 0 predniSONE (DELTASONE) 20 mg tablet Take 2 tablets by mouth once daily. 10 tablet 0 FVIII rec,B-dom delet peg-aucl (JIVI) 3,000 (+/-) unit solr RECONSTITUTE THEN ADMINISTER JIVI 6230 UNITS (3115 x 2 )EVERY WEDNESDAY AND WEDNESDAY AND FOR BREAKTHROUGH BLEEDS. 20 Each 11 amoxicillin (POLYMOX, AMOXIL) 500 mg capsule 4 po one hour before procedure. 4 capsule 1 lidocaine viscous (LIDOCAINE VISCOUS) 2 % solution Soak cotton ball in solution and place adjacent to gum of painful tooth every 2 hours as needed. 120 mL 1 omeprazole (PRILOSEC) 20 mg capsule Take 1 capsule by mouth once daily. 42 capsule 0 pregabalin (LYRICA) 150 mg capsule take 1 capsule by mouth twice a day 60 capsule 5 No current facility-administered medications for this visit. ALLERGIES Allergen Reactions Asa [Salicylates] Intolerance Contrast Dye Other: See Comments History of contrast induced nephropathy-Per patient is allergic to CT DYE Nsaids (Non-Steroid* Other: See Comments Other reaction(s): Other All medical history, medications and allergies have been discussed with the patient today. ROS: REVIEW OF SYSTEMS: Constitutional: patient denies any recent fever or significant change in weight Cardiovascular: patient denies any chest pain at rest Respiratory: patient denies any shortness of breath or cough Gastrointestinal: patient denies any current abdominal discomfort Integumentary: patient denies any recent skin changes Musculoskeletal: as noted in the HPI Neurologic: as noted in the HPI Endocrine: patient denies a current diagnosis of diabetes Hematologic/Lymphatic: patient denies any easily bleeding, any recent infection and denies any recent observable lymph node enlargement Psychologic: negative for any recent depression or anxiety issues SOCIAL HISTORY: Tobacco Use: Never FAMILY HISTORY: FAMILY HISTORY Problem Relation Age of Onset None Mother age 45 Hypertension Father age 48 No Ocular Disease Other Patient reports no change in past medical & surgical history, medications, allergies, social history, family history and review of systems since last visit. Physical Examination: Mr. Harrington is a healthy appearing male in no acute distress. Bilateral upper limbs have equal and intact peripheral pulses. Skin does not demonstrate any rashes or lesions. Cervical spine has pain free ROM and no tenderness to palpation. Shoulders have pain free range of motion. Negative carpal tunnel compression testing and tinels testing on the right. Equal and intact sensation to light touch in the radial 3 digits. Negative Tinel's over the right cubital tunnel and the ulnar nerve is stable in the groove with elbow flexion. Sensation intact to light touch in the ulnar nerve distribution. AROM right elbow arc 40-100 degrees with elbow flexion/extension. Full supination /pronation with pain and end points of motion. Radial pulse palpable. X-Ray: right elbow demonstrates severe degenerative changes consistent with AVN. MRI of the right elbow demonstrated loss of radiocapitellar and ulnotrochlear articular surface as well as bony infarct throughout the trochlea. Assessment: Avascular necrosis of bone (hcc) (primary encounter diagnosis) right elbow Plan: I discussed with Mr. Harrington the diagnosis and different treatment options. Discussed imaging findings today. Discussed treatment options including right elbow CSI and elbow arthroplasty. Risks, benefits, and complications explained including lifelong postop lifting restriction of 5lbs after elbow arthroplasty. Patient elects to proceed with right elbow CSI. Follow up 3-4 months prn. Kaz Ann DO March 05, 2022 1:24 PM Attending Note: I have seen and examined Mr.. Harrington and discussed the patient management with the resident/fellow. The resident's/fellow's progress note has been reviewed, edited, and signed. I was present for any and all procedures performed at this visit. Medium Joint Arthro/Inj: R elbow joint Informed Consent Consent Obtained: Verbal Firestone Protocol A moment to CARE was completed. SIGN IN Personnel directly involved with the procedure wore the appropriate PPE. Special Equipment: N/A Patient/Surrogate Stated/Verified: Patient name, Date of , Relevant allergies and Intended procedure TIME OUT Intended patient and procedure match the source document(s). Consent documented and matches the intended procedure. Relevant labs, photos, and/or imaging studies have been reviewed. Correct side/site marked and visible. Medications required for procedure verified. No fire risk assessment and interventions applicable. No implant(s) inserted. 03/05/2022 1:56 PM The procedure site was prepped in the usual sterile fashion. Site: R elbow joint Medications: 12 mg betamethasone acetate-betamethasone sodium phosphate 6 mg/mL Anesthetics: 2 mL lidocaine (PF) 10 mg/mL (1 %) Outcome: tolerated well, no immediate complications Post-injection instructions were reviewed with the patient and the patient voiced understanding of these instructions. SIGN OUT No specimen collected. All instruments, equipment, possible retained foreign bodies accounted for. Post-procedure follow-up management communicated and Plan of Care Visit completed when applicable Bryanna Scott MD March 05, 2022 1:55 PM documented in this encounterMer[facility] Hospital09-19-2022 NoteHNO ID: [id number] Author: RT Rosaura(R) Service: Radiology Author Type: Technologist Type: Progress Notes Filed: 02/09/2022 3:27 PM Note Text: Radiology Service Progress Note PATIENT NAME: Sunita Harrington DATE OF SERVICE: February 09, 2022 TIME: 3:26 PM PATIENT IDENTITY VERIFICATION COMPLETED USING TWO (2) IDENTIFIERS: Name and Date of confirmed by patient verbally. FALL SCREENING: Has the patient had 2 falls in the last year or 1 fall with injury or currently using an Ambulatory Assistive Device (Walker, Cane, Wheelchair, Crutches, etc.)? No PATIENT GENDER DATA: Male PATIENT RELEVANT IMPLANT DATA REVIEWED: Yes RADIOLOGY DEPARTMENT: MR; Exam(s) Completed: Upper MSK: Elbow, right PERIPHERAL IV DATA: Not applicable SIGNED BY: RT Rosaura(R) February 09, 2022 3:26 [facility] History of Present illness Narrative* RT Rosaura(R) - 02/09/2022 2:20 PM EDT Radiology Service Progress Note PATIENT NAME: Sunita Harrington DATE OF SERVICE: February 09, 2022 TIME: 3:26 PM PATIENT IDENTITY VERIFICATION COMPLETED USING TWO (2) IDENTIFIERS: Name and Date of confirmedby patient verbally. FALL SCREENING: Has the patient had 2 falls in the last year or 1 fall with injury or currently using an Ambulatory Assistive Device (Walker, Cane, Wheelchair, Crutches, etc.)? No PATIENT GENDER DATA: Male PATIENT RELEVANT IMPLANT DATA REVIEWED: Yes RADIOLOGY DEPARTMENT: MR; Exam(s) Completed: Upper MSK: Elbow, right PERIPHERAL IV DATA: Not applicable SIGNED BY: RT Rosaura(R) February 09, 2022 3:26 PM documented in this encounterMercy Hospital09-07-2022 Miscellaneous Notes* Telephone Encounter - Camille Wei LPN - 01/28/2022 11:38 AM EDT Last office visit: 12/15/21 Next appointment scheduled: Not scheduled at this time Last labs: 01/19/21 Patient phones requesting refills as follows: Requested Prescriptions Pending Prescriptions Disp Refills FLUoxetine (PROZAC) 40 mg capsule 30 capsule 5 Sig: Take 1 capsule by mouth once daily. Please review and advise. Camille Wei LPN * Telephone Encounter - Yesenia Sanchez - 01/28/2022 11:35 AM EDT Patient has been identified by name and date of : Yes Requested Prescriptions Pending Prescriptions Disp Refills FLUoxetine (PROZAC) 40 mg capsule 30 capsule 5 Sig: Take 1 capsule by mouth once daily. RX INSTRUCTIONS: Patient aware RX will be sent to pharmacy. No need to notify patient. Yesenia Sanchez documented in this encounterMercy Hospital08-24-2022 Miscellaneous Notes* Telephone Encounter - Quynh Roque APRN.CNP - 01/14/2022 10:59 AM EDT The following approved medication requests have been transmitted electronically. Requested Prescriptions Signed Prescriptions Disp Refills levETIRAcetam (KEPPRA) 750 mg tablet 360 tablet 0 Sig: Take 2 tablets by mouth twice daily. Authorizing Provider: QUYNH ROQUE APRN.CNP documented in this encounterMercy Hospital08-18-2022 History of Present illness Narrative* Bryanna Scott MD - 01/08/2022 11:13 AM EDT HPI: Mr. Harrington is a right hand dominant 36 year old male who is active with a chief complaint of right elbow pain and stiffness. Of note, he has hemophilia with a factor VIII deficiency. He has pain and stiffness for 10 years, which has progressively worsened. Evaluation to date has included x-rays. Treatment to date has included multiple steroid injections without any relief. The symptoms are improved by rest and exacerbated by all activities. The current symptoms are rated a 6/10 and interfere with ADLs and prevents him from playing golf. PAST MEDICAL HISTORY Diagnosis Date Coarctation of aorta (preductal) (postductal) Coarctation of aorta Congenital bicuspid aortic valve 01/02/2015 Monitor: pt will follow outpatient. 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 Based on current guidelines*, a repeat follow-up unenhanced low-dose CT can be obtained in 12 months at clinical discretion. Plan: Pt is aware, follow up w/ local MD. Post-op pain 09/09/2015 History: Pre-op h/o back pain treated w/ oxycodone 20mg q 6hrs prn and MS contin 30mg tid. MRI 09/08no evidence of discitis or osteomyelitis. Assessment: Verbalizes adequate pain relief on preop regimen. Plan: Continue Tylenol, lidoderm, and preop regimen of Oxycodone 20mg q 6hrs prn and MS Contin 30mg tid Pulmonary HTN (HCC) Seizure (HCC) 09/26/2015 History: H/o seizures, on keppra preop Assessment: 09/20/15 post op seizure in ICU. No further events Plan: Continue keppra. Follow up w/ Neurology after discharge. Stroke (HCC) 01/2015 2 x Brain hemorrhage (07/2014, 11/2014) Thoracic ascending aortic aneurysm (HCC) Tooth decay 09/26/2015 History: Preop dental evaluation revealed gross decay and chronic abscess of tooth #2 Assessment: Dental recommended extraction of tooth #2. Plan: After clearance from ID, CTS, Hematology, pt underwent extraction #2 on 09/27/15. Continue amicar x 1 more dose today per Hematology. Current Outpatient Medications Medication Sig Dispense Refill cyclobenzaprine (FLEXERIL) 10 mg tablet Take 1 tablet by mouth three times daily as needed for muscle spasm. 40 tablet 0 predniSONE (DELTASONE) 20 mg tablet Take 2 tablets by mouth once daily. 10 tablet 0 levETIRAcetam (KEPPRA) 750 mg tablet take 2 tablets by mouth twice a day 360 tablet 0 sodium chloride 0.9 %, flush, (NORMAL SALINE FLUSH) syringe Flush with 5 -10mL Sodium Chloride 0.9% DIRECTED Discard remainder of syringe after single use. 10 mL 1 FVIII rec,B-dom delet peg-aucl (JIVI) 3,000 (+/-) unit solr RECONSTITUTE THEN ADMINISTER JIVI 6230 UNITS (3115 x 2 )EVERY WEDNESDAY AND WEDNESDAY AND FOR BREAKTHROUGH BLEEDS. 20 Each 11 FLUoxetine HCl (PROZAC) 40 mg capsule Take 1 capsule by mouth once daily. 30 capsule 5 omeprazole (PRILOSEC) 20 mg capsule Take 1 capsule by mouth once daily. 42 capsule 0 pregabalin (LYRICA) 150 mg capsule take 1 capsule by mouth twice a day 60 capsule 5 amoxicillin (POLYMOX, AMOXIL) 500 mg capsule 4 po one hour before procedure. 4 capsule 1 lidocaine viscous (LIDOCAINE VISCOUS) 2 % solution Soak cotton ball in solution and place adjacent to gum of painful tooth every 2 hours as needed. 120 mL 1 Current Facility-Administered Medications Medication Dose Route Frequency Provider Last Rate Last Admin perflutren lipid microspheres 1.3 mL in NaCl (PF) 0.9% 10 mL injection (DEFINITY) INTRAVENOUS DIRECTED PRN Gal Steven MD sodium chloride 0.9 % (flush) 10 mL (BD POSIFLUSH) 10 mL INTRAVENOUS DIRECTED PRN Gal Steven MD ALLERGIES Allergen Reactions Asa [Salicylates] Intolerance Contrast Dye Other: See Comments History of contrast induced nephropathy-Per patient is allergic to CT DYE Nsaids (Non-Steroid* Other: See Comments Other reaction(s): Other All medical history, medications and allergies have been discussed with the patient today. ROS: REVIEW OF SYMPTOMS: Constitutional: patient denies any recent fever or significant change in weight Gastrointestinal: patient denies any current abdominal discomfort Musculoskeletal: as noted in the HPI Neurologic: as noted in the HPI SOCIAL HISTORY: Tobacco Use: Never Patient reports no change in past medical & surgical history, medications, allergies, social history, family history and review of systems since last visit. Physical Examination: Mr. Harrington is a healthy appearing male in no acute distress. Bilateral upper limbs have equal and intact peripheral pulses. Skin does not demonstrate any rashes or lesions. Cervical spine has pain free ROM and no tenderness to palpation. Shoulders have pain free range of motion. Negativ carpal tunnel compression testing and Phalen testing on the right. Equal and intact sensation to light touch in the radial 3 digits. Negative Tinel's over the right cubital tunnel and the ulnar nerve is in the groove with elbow flexion. Sensation intact to light touch in the ulnar nerve distribution. No open wounds. No tenderness to palpation over the elbow. No deformity . There is a limited arc of motion from 40-95 degrees of elbow flexion/extension. There is full supination/pronation. X-Ray: severe arthritis of the right elbow with signs of avascular necrosis Assessment: Right elbow arthritis and avascular necrosis Plan: I discussed with Mr. Harrington and his mother the diagnosis and different treatment options. He has severe elbow arthritis with avascular necrosis from a prolonged course of prednisone. Management of elbow arthritis in a young person is challenging. MRI of the elbow would better elucidate the extent of avascular necrosis and how much healthy cartilage is present, as this would dictate further management. Surgery involving soft tissue release, interposition arthroplasty, total elbow arthroplasty was discussed with patient. The patient and his mother would like to proceed with MRI. RTC after imaging to review and discuss options further. Jazlyn Cabrera MD January 08, 2022 11:13 AM Attending Note: I have seen and examined Mr.. Harrington and discussed the patient management with the resident/fellow. The resident's/fellow's progress note has been reviewed, edited, and signed. I was present for any and all procedures performed at this visit. Bryanna Scott MD January 08, 2022 11:43 AM documented in this encounterMercy Hospital07-25-2022 Instructions* Patient Instructions* Vonnie Man APRN.CNP - 12/15/2021 1:29 PM EDT 1. Try the flexeril. This can make you drowsy. 2. Alternate moist heat/ice to the back. 3. Massage to the back. 4. You can also use topical medications (anna douglas, icy hot, biofreeze, etc) to the area. 5. You can continue tylenol, as needed. 6. Use the prednisone -- two pills by mouth once daily X 5 days. 7. Let us know if no better/worsening. documented in this encounterMercy Hospital07-25-2022 History of Present illness Narrative* Vonnie Man APRN.CNP - 12/15/2021 1:16 PM EDT This is a 36 year old male who presents today with: Patient presents with: Recheck: follow up from - L shoulder blade/upper back pain; no injury HISTORY OF PRESENT ILLNESS: Sunita Harrington is a 36 year old male. Patient presents with: Recheck: follow up from [facility]- L shoulder blade/upper back pain; no injury Pt presents today with complain today to follow-up on back pain. Presents today with mother. Refers that he was to urgent care on 12/05/21. Refers that he had a medrol dose pack, which didn't help. Refers that he continues to have pain in th left thoracic back. Refers he can feel a knot. Refers that he has been taking tylenol. Tries to avoid nsaids d/t hemophilia and hx of bleeding. PAST MEDICAL HISTORY: PAST MEDICAL HISTORY Diagnosis Date Coarctation of aorta (preductal) (postductal) Coarctation of aorta Congenital bicuspid aortic valve 01/02/2015 Monitor: pt will follow outpatient. 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 Based on current guidelines*, a repeat follow-up unenhanced low-dose CT can be obtained in 12 months at clinical discretion. Plan: Pt is aware, follow up w/ local MD. Post-op pain 09/09/2015 History: Pre-op h/o back pain treated w/ oxycodone 20mg q 6hrs prn and MS contin 30mg tid. MRI 09/08no evidence of discitis or osteomyelitis. Assessment: Verbalizes adequate pain relief on preop regimen. Plan: Continue Tylenol, lidoderm, and preop regimen of Oxycodone 20mg q 6hrs prn and MS Contin 30mg tid Pulmonary HTN (HCC) Seizure (HCC) 09/26/2015 History: H/o seizures, on keppra preop Assessment: 09/20/15 post op seizure in ICU. No further events Plan: Continue keppra. Follow up w/ Neurology after discharge. Stroke (HCC) 01/2015 2 x Brain hemorrhage (07/2014, 11/2014) Thoracic ascending aortic aneurysm (HCC) Tooth decay 09/26/2015 History: Preop dental evaluation revealed gross decay and chronic abscess of tooth #2 Assessment: Dental recommended extraction of tooth #2. Plan: After clearance from ID, CTS, Hematology, pt underwent extraction #2 on 09/27/15. Continue amicar x 1 more dose today per Hematology. PAST SURGICAL HISTORY Procedure Laterality Date ABD AORTA ANEURYSM REPAIR 12/09/2009 replacement of ascending aorta with #28 Hemashield supracoronary graft. ANKLE SURGERY HX Bilateral x 2-3 each ankle, clean-outs CONGENITAL HEART SURGERY 05/24/1988 repair coarctation aorta CRANIOT TEMPORAL LOBE W/O ELECTROCORTICOGRAPHY Right 06/2014 CRANIOTOMY FOR LOBOTOMY Right 12/2014 Frontal HEART SURGERY HX 2016 re-do CTS HIP SURGERY HX Left 2002 KNEE SURGERY HX Left PICC LINE INSERT/CONSULT 01/08/2015 PICC LINE INSERT/CONSULT 02/05/2015 SHX AORTIC STENT 05/24/2005 aortic stenting secondary to re-stenosis ALLERGIES Asa [Salicylates], Contrast Dye, and Nsaids (Non-Steroidal Anti- Inflammatory Drug) MEDICATIONS Current Outpatient Medications Medication Sig levETIRAcetam (KEPPRA) 750 mg tablet take 2 tablets by mouth twice a day sodium chloride 0.9 %, flush, (NORMAL SALINE FLUSH) syringe Flush with 5 -10mL Sodium Chloride 0.9% DIRECTED Discard remainder of syringe after single use. FVIII rec,B-dom delet peg-aucl (JIVI) 3,000 (+/-) unit solr RECONSTITUTE THEN ADMINISTER JIVI 6230 UNITS (3115 x 2 )EVERY WEDNESDAY AND WEDNESDAY AND FOR BREAKTHROUGH BLEEDS. FLUoxetine HCl (PROZAC) 40 mg capsule Take 1 capsule by mouth once daily. amoxicillin (POLYMOX, AMOXIL) 500 mg capsule 4 po one hour before procedure. omeprazole (PRILOSEC) 20 mg capsule Take 1 capsule by mouth once daily. pregabalin (LYRICA) 150 mg capsule take 1 capsule by mouth twice a day lidocaine viscous (LIDOCAINE VISCOUS) 2 % solution Soak cotton ball in solution and place adjacent to gum of painful tooth every 2 hours as needed. Current Facility-Administered Medications Medication Dose Route Frequency perflutren lipid microspheres 1.3 mL in NaCl (PF) 0.9% 10 mL injection (DEFINITY) INTRAVENOUS DIRECTED PRN sodium chloride 0.9 % (flush) 10 mL (BD POSIFLUSH) 10 mL INTRAVENOUS DIRECTED PRN FAMILY HISTORY Problem Relation Age of Onset None Mother age 45 Hypertension Father age 48 No Ocular Disease Other Social History Tobacco Use Smoking status: Never Smoker Smokeless tobacco: Never Used Vaping Use Vaping Use: Never used Substance Use Topics Alcohol use: Yes Comment: occasionally, once every 6 months Drug use: Not Currently Types: Marijuana, Opiates Comment: former uses; Last use of Opiates around 2019 EXAM: BP 122/82 Pulse 102 Resp 18 SpO2 97% PHYSICAL EXAM: General Appearance: Well appearing, alert, in no acute distress, well-hydrated, well nourished.. Skin: Skin color, texture, turgor normal, no suspicious rashes or lesions. Head: Normocephalic, no masses, lesions, tenderness or abnormalities. Eyes: Anicteric sclera. Pupils are equally round and reactive to light. Extraocular movements are intact. . Back: + pain to palpate in the left thoracic back. good flexion and extension, good range of motion, Lungs: Lungs clear to auscultation. No wheezing, rhonchi, rales.. Heart: RRR without murmur, gallop, or rubs. No ectopy. Neurologic: Gait normal. ASSESSMENT/PLAN: 1. Upper back pain - ICD9: 724.5, ICD10: M54.9 Thoracic back pain. - Ice for localized tenderness - Warm moist heat for 20 min three times a day - Prednisone burst- see orders - Muscle relaxant- see orders - CYCLOBENZAPRINE 10 MG TABLET - PREDNISONE 20 MG TABLET Declines PT. Will go ahead and do a short burst of prednisone in combination with as needed flexeril. Discussed moist heat, ice, massage, and topical medications. Notify provider if no better or worsening. Discussed potential side effects of ordered medications. Patient voices understanding. Can please let patient know via phone or letter that the stool sample was negative for blood. Return to the office as scheduled or as needed for worsening/no improvement. Vonnie Man APRN.SULAIMAN [facility] History of Present illness Narrative* Blaire Truong APRN.CNP - 12/05/2021 6:33 PM EDT Images from the original note were not included. Subjective HPI HPI Sunita Harrington is a 36 year old male who presents today for CC of left neck/shoulder/arm pain. This started 4 days ago/worsening. Has tried otc medication with minimal relief. Symptoms are worsened by rom. Denies injury. Reports chronic/intermittant numbness/tingling of bilat upper extremities.Denies fever, rash, cp/sob. .Patient presents with: Pain: (LT) shoulder, middle back pain rated 8, x 4 days denied accident/injury Follow Up: Pt denied SOB, chest pain PAST MEDICAL HISTORY Diagnosis Date Coarctation of aorta (preductal) (postductal) Coarctation of aorta Congenital bicuspid aortic valve 01/02/2015 Monitor: pt will follow outpatient. 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 Based on current guidelines*, a repeat follow-up unenhanced low-dose CT can be obtained in 12 months at clinical discretion. Plan: Pt is aware, follow up w/ local MD. Post-op pain 09/09/2015 History: Pre-op h/o back pain treated w/ oxycodone 20mg q 6hrs prn and MS contin 30mg tid. MRI 09/08no evidence of discitis or osteomyelitis. Assessment: Verbalizes adequate pain relief on preop regimen. Plan: Continue Tylenol, lidoderm, and preop regimen of Oxycodone 20mg q 6hrs prn and MS Contin 30mg tid Pulmonary HTN (HCC) Seizure (HCC) 09/26/2015 History: H/o seizures, on keppra preop Assessment: 09/20/15 post op seizure in ICU. No further events Plan: Continue keppra. Follow up w/ Neurology after discharge. Stroke (HCC) 01/2015 2 x Brain hemorrhage (07/2014, 11/2014) Thoracic ascending aortic aneurysm (HCC) Tooth decay 09/26/2015 History: Preop dental evaluation revealed gross decay and chronic abscess of tooth #2 Assessment: Dental recommended extraction of tooth #2. Plan: After clearance from ID, CTS, Hematology, pt underwent extraction #2 on 09/27/15. Continue amicar x 1 more dose today per Hematology. PAST SURGICAL HISTORY Procedure Laterality Date ABD AORTA ANEURYSM REPAIR 12/09/2009 replacement of ascending aorta with #28 Hemashield supracoronary graft. ANKLE SURGERY HX Bilateral x 2-3 each ankle, clean-outs CONGENITAL HEART SURGERY 05/24/1988 repair coarctation aorta CRANIOT TEMPORAL LOBE W/O ELECTROCORTICOGRAPHY Right 06/2014 CRANIOTOMY FOR LOBOTOMY Right 12/2014 Frontal HEART SURGERY HX 2016 re-do CTS HIP SURGERY HX Left 2002 KNEE SURGERY HX Left PICC LINE INSERT/CONSULT 01/08/2015 PICC LINE INSERT/CONSULT 02/05/2015 SHX AORTIC STENT 05/24/2005 aortic stenting secondary to re-stenosis ALLERGIES Asa [Salicylates], Contrast Dye, and Nsaids (Non-Steroidal Anti- Inflammatory Drug) MEDICATIONS levETIRAcetam (KEPPRA) 750 mg tablet take 2 tablets by mouth twice a day FVIII rec,B-dom delet peg-aucl (JIVI) 3,000 (+/-) unit solr RECONSTITUTE THEN ADMINISTER JIVI 6230 UNITS (3115 x 2 )EVERY WEDNESDAY AND WEDNESDAY AND FOR BREAKTHROUGH BLEEDS. amoxicillin (POLYMOX, AMOXIL) 500 mg capsule 4 po one hour before procedure. methylPREDNISolone (MEDROL, HERLINDA,) 4 mg Dose-Pack Follow dosing instructions, take with food. sodium chloride 0.9 %, flush, (NORMAL SALINE FLUSH) syringe Flush with 5 -10mL Sodium Chloride 0.9% DIRECTED Discard remainder of syringe after single use. FLUoxetine HCl (PROZAC) 40 mg capsule Take 1 capsule by mouth once daily. omeprazole (PRILOSEC) 20 mg capsule Take 1 capsule by mouth once daily. pregabalin (LYRICA) 150 mg capsule take 1 capsule by mouth twice a day lidocaine viscous (LIDOCAINE VISCOUS) 2 % solution Soak cotton ball in solution and place adjacent to gum of painful tooth every 2 hours as needed. FAMILY HISTORY Problem Relation Age of Onset None Mother age 45 Hypertension Father age 48 No Ocular Disease Other Social History Tobacco Use Smoking status: Never Smoker Smokeless tobacco: Never Used Vaping Use Vaping Use: Never used Substance Use Topics Alcohol use: Yes Comment: occasionally, once every 6 months Drug use: Not Currently Types: Marijuana, Opiates Comment: former uses; Last use of Opiates around 2019 ROS Objective Blood pressure 126/64, pulse 68, temperature 36.6 C (97.8 F), resp. rate 18, weight 104.1 kg (229 lb 9.6 oz), SpO2 99 %. Physical Exam Constitutional: General: He is not in acute distress. Appearance: He is not toxic-appearing or diaphoretic. HENT: Head: Normocephalic and atraumatic. Cardiovascular: Rate and Rhythm: Normal rate and regular rhythm. Heart sounds: Normal heart sounds, S1 normal and S2 normal. Pulmonary: Effort: Pulmonary effort is normal. No accessory muscle usage or respiratory distress. Breath sounds: Normal breath sounds. Musculoskeletal: Back: Neurological: Mental Status: He is alert and oriented to person, place, and time. Gait: Gait is intact. Deep Tendon Reflexes: Reflex Scores: Bicep reflexes are 2+ on the left side. ASSESSMENT/PLAN: 1. Acute pain of left shoulder - ICD9: 719.41, ICD10: M25.512 Medrol pack ordered Will schedule f/u with pcp/recheck. Urgent f/u for worsening s/s. - METHYLPREDNISOLONE 4 MG TABLETS IN A DOSE PACK Agrees to plan Blaire Truong APRN.CNP documented in this encounterMer[facility]07-15-2022 Instructions* Patient Instructions* Blaire Truong APRN.CNP - 12/05/2021 4:23 PM EDT ASSESSMENT/PLAN: 1. Acute pain of left shoulder - ICD9: 719.41, ICD10: M25.512 -use medication as prescribed -follow up if symptoms persist, worsen, change Will schedule follow up with primary care in 3 days for recheck Urgent follow up for severe/worsening s/s. - METHYLPREDNISOLONE 4 MG TABLETS IN A DOSE PACK documented in this encounterMer[facility]05-06-2022 Miscellaneous Notes* Telephone Encounter - Jasmin Demarco APRN.CNP - 09/26/2021 4:39 PM EDT Signed order Jasmin Demarco APRN.SULAIMAN * Telephone Encounter - Lidia Damian - 09/24/2021 3:32 PM EDT Spoke with patient. Please refill to new specialty pharmacy ([facility]). Last refill sent by Wendie to old pharmacy. * Telephone Encounter - Lidia Damian - 09/23/2021 3:11 PM EDT Received call from patient's specialty pharmacy ([facility]) with request for saline flushes. Has not been filled before. Called patient with no answer. Left message to call office to discuss request. documented in this encounterMer[facility]02-22-2022 Miscellaneous Notes* Telephone Encounter - Edin Cobb PA-C - 07/15/2021 1:55 PM EST The following approved medication requests have been transmitted electronically. Signed Prescriptions Disp Refills levETIRAcetam (KEPPRA) 750 mg tablet 360 tablet 0 Sig: Take 2 tablets by mouth twice daily. LA: No Authorizing Provider: EDIN COBB PA-C * Telephone Encounter - Letitia Goddard - 07/15/2021 1:40 PM EST Prescription Refill: Requested by: pharmacy Please E-Scribe Caller Contact Number: [facility]acy Number: [phone] Generic/ brand: 30 or 90 day supply requested: 90 Last appointment: 03/25/2021 Next Appointment: none Patient of Dr. Fernandez documented in this encounterMercy [facility]07-09-2021 NoteHNO ID: [id number] Author: JERRY Cardenas Service: Radiology Author Type: Clinical Logistics Team Leader Type: Progress Notes Filed: 11/29/2020 3:50 PM Note Text: Radiology Service Progress Note PATIENT NAME: Sunita Harrington DATE OF SERVICE: November 29, 2020 TIME: 3:50 PM PATIENT IDENTITY VERIFICATION COMPLETED USING TWO (2) IDENTIFIERS: Name and Date of confirmed by patient verbally and Name and Date of confirmed by identification band. FALL SCREENING: Has the patient had 2 falls in the last year or 1 fall with injury or currently using an Ambulatory Assistive Device (Walker, Cane, Wheelchair, Crutches, etc.)? No PATIENT GENDER DATA: Male PATIENT RELEVANT IMPLANT DATA REVIEWED: Not Applicable RADIOLOGY DEPARTMENT: CT; Exam(s) Completed: Lower extremity PERIPHERAL IV DATA: Not applicable SIGNED BY: JERRY Cardenas November 29, 2020 3:50 PMKeenan Private [id number] NoteHNO ID: [id number] Author: Sasha KurtzCtJERRY Boone Service: ? Author Type: Clinical Logistics Team Leader Type: Progress Notes Filed: 02/08/2020 3:37 PM Note Text: Radiology Service Progress Note PATIENT NAME: Sunita Harrington DATE OF SERVICE: February 08, 2020 TIME: 3:35 PM PATIENT IDENTITY VERIFICATION COMPLETED USING TWO (2) IDENTIFIERS: Name and Date of confirmed by patient verbally. FALL SCREENING: Has the patient had 2 falls in the last year or 1 fall with injury or currently using an Ambulatory Assistive Device (Walker, Cane, Wheelchair, Crutches, etc.)? No PATIENT GENDER DATA: Male PATIENT RELEVANT IMPLANT DATA REVIEWED: Not Applicable RADIOLOGY DEPARTMENT: General X-ray: Exam(s) Completed: Lower Extremity X-Ray(s): AP AND LATERAL HIP: PERIPHERAL IV DATA: Not applicable SIGNED BY: RT Josr February 08, 2020 3:35 PMKeenan Private [id number] History of Past illness Narrative* Problem Noted Date Resolved Date Cerebrovascular accident (CV A) due to embolism of left carotid artery 01/18/2019 01/03/2021 Recurrent major depression in partial remission 01/18/2019 01/03/2021 Expressive aphasia 07/01/2017 01/03/2021 Overview: Following Left frontal region of MCA: resultant expressive aphasia. Last Assessment & Plan: Moderate aphasia -Continue speech exercises Lung nodule 09/28/2015 05/28/2020 Overview: Assessment: Cardiac chest CT scan 09/10/2015 reported Stable 5 mm calcified nodule right upper lobe. Based on current guidelines*, a repeat follow-up unenhanced low-dose CT can be obtained in 12 months at clinical discretion. Plan: Pt is aware, follow up w/ local MD. Tooth decay 09/26/2015 05/28/2020 Overview: History: Preop dental evaluation revealed gross decay and chronic abscess of tooth #2 Assessment: Dental recommended extraction of tooth #2. Plan: After clearance from ID, CTS, Hematology, pt underwent extraction #2 on 09/27/15. Continue amicar x 1 more dose today per Hematology. Seizure 09/26/2015 05/28/2020 Overview: History: H/o seizures, on keppra preop Assessment: 09/20/15 post op seizure in ICU. No further events Plan: Continue keppra. Follow up w/ Neurology after discharge. Last Assessment & Plan: Post stroke epilepsy -Continue Keppra 750mg twice daily -Medication compliance encouraged Atelectasis 09/20/2015 05/28/2020 Overview: History: CXR 09/26: Small pleural effusions have near completely resolved. Improvement of by basilar atelectatic changes .No pneumothorax Assessment: Wt is well below preop, on room air Plan: Encourage ambulation, C&DB, PEP. Stop lasix. Stress hyperglycemia 09/20/2015 09/23/2015 Overview: No h/o DM A/P: SSI. Hypovolemia 09/19/2015 09/24/2015 Overview: Post-op fluid shifts A/P: IVF resuscitation as needed. Essential hypertension 09/19/2015 Overview: History: no meds pre-op Assessment: SBP controlled Plan: continue metoprolol (changed to toprol XL), lisinopril. Follow up locally Last Assessment & Plan: Follow up with PCP Refill for Metoprolol provided Well controlled today. Severe aortic regurgitation 09/09/201512/22 Overview: History: 4+ AR Assessment: 09/19/2015 Reop: AVR #27 CE, Ascending aortic root replacement with composite graft including #32 gelweave graft Surgical Pathology: A. Aortic valve, excision - Bicuspid aortic valve with severe calcification and severe fibrosis (gross diagnosis only). B. Ascending aorta and Hemashield graft, excision - Chronic dissection. Plan: ASA daily. Postop echo 09/24/15: - No AR. The peak gradient is 22 mmHg, the mean gradient is 14 mmHg - EF = 35 5% - The right ventricle is normal in size. Right ventricular systolic function is normal. Post-op pain 09/09/2015 05/28/2020 Overview: History: Pre-op h/o back pain treated w/ oxycodone 20mg q 6hrs prn and MS contin 30mg tid. MRI 09/08 no evidence of discitis or osteomyelitis. Assessment: Verbalizes adequate pain relief on preop regimen. Plan: Continue Tylenol, lidoderm, and preop regimen of Oxycodone 20mg q 6hrs prn and MS Contin 30mg tid Preop testing 01/30/2015 09/23/2015 Overview: Images from the original note were not included. [facility] PRE[facility] CHECKLIST Surgeon: Emmanuel Wang M.D. Informed Consent Completed: No STS Score: AV Replacement Risk of Mortality: 2.61% Morbidity or Mortality: 29.84% Long Length of Stay: 16.325% Short Length of Stay: 15.915% Permanent Stroke: 2.899% Prolonged Ventilation: 22.329% DSW Infection: 0.168% Renal Failure: 5.656% Reoperation: 12.001% CAD: No Is intended procedure a CABG: No - is a beta jimmy ordered? No - reason: no documented CAD H & P completed: Yes PA/LAT: will need prior to surg CT: completed MRI:brain Completed LE US: N/A Cath: No Echo:Completed EKG: Completed EF %: 54% PI's: N/A Carotid: MRA of carotid: Completed Mapping: N/A Dental: Completed s/p extractions 12/2014 PFT's: N/A Recent Labs 01/30/15 0026 WBC 4.72 HB 9.9* HCT 30.4* PLT 185 INR 1.0 CREAT 0.75 UA: Normal HCG:N/A ABO/ABO Confirmed: Yes Blood ordered: Yes SA Swab: Yes - results: Negative Last Dose of Anticoagulation: heparin Op Note: Yes for surgery on 2009 Pacemaker Check: N/A Consults: ID, hematology DM: No Cardiac Surgical prep: Yes SIGNATURE: Ginette Luna CNP DATE of SERVICE: 01/30/2015 TIME of SERVICE: 4:19 PM Teri Gates CNP February 08, 2015 2:20 PM Pain 01/29/2015 05/28/2020 Overview: ,date--> increased narc dose for more optimal pain management. Endocarditis 01/29/2015 07/02/2017 Overview: History: January 29, 2015--> TTE completed--> continued changes c/w endocarditis on bicuspid aortic valve, similar to that seen on SABRA completed on 01/03/15. 01/30 cultures remain negative Assessment: WBC's WNL, afebrile Plan: Per ID: continue doxycline 100 mg po for possible Bartonella will review pathology of explanted valve with Dr Serrano when ready sequencing for Bartonella pending Stroke (cerebrum) 01/27/2015 01/03/2021 Overview: January 28, 2015--> likely cardioembolic. Following cardiology recs re: echo technque required for otpimal medcial dec. making wrt management/storke prevention. 01/30 as above January 31, 2015--> spoke to CTS staff who resuested a ntoe from stroke about recommended timing on Valve repalcement surgery, given his recent infarct. Also requested c/s from Hematology re: periop/intraop management of his primary coagulopathy. He also indicated that Mr. Harrington will need to undergo a SABRA and conv angio just prior to surgery, but alba snot need either study at this time. 07/29/17 Followed with [facility] neuro -vascular [facility] Last Assessment & Plan: Secondary to I.E -Symptoms stable -Continue speech exercises Seizure 01/27/2015 09/23/2015 Overview: AEDs: fosPHT and keppra January 28, 2015--> remains seizure free on PHTN and keppar. PHTN level 1.4 yday. continuing serial PHTN levels to confirm optimal. January 29, 2015--> switchiing to oral keppra. Fospheny stopped -continue on Keppra. DVT prophylaxis 01/02/2015 01/03/2021 Overview: Ambulatory SCDS No chemoprophylactic due to hemorrhage Congenital bicuspid aortic valve 01/02/2015 05/28/2020 Overview: Monitor: pt will follow outpatient. Infective endocarditis of aortic valve 5 01/03/2021 Overview: History: Large vegetation on the [place] bicuspid aortic valve. 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 Was initially being medically managed w/ ceftriaxone/doxycline due to high surgical risk: redo status, hemophilia, spontaneous intracranial bleeds. Assessment: 09/19/2015 Reop: AVR #27 CE, Ascending aortic root replacement with composite graft including #32 Per ID note: Difficult to know exactly what the echodensities represent. His history does not robustly support a diagnosis of IE and GN may also be associated with Bartonella IE. He has been treated appropriately with antibiotics for Bartonella. Plan: Per ID recommendations: -continue oral 100 mg po for possible Bartonella -will review pathology of explanted valve with Dr Park today but report no evidence for IE -sequencing for Bartonella pending ( will plan on oral doxcycline until l results back) -no need for CoPAT Spoke to ID: ID will follow up on OR results, ok to discharge pt on doxycycline 100mg q 12 hrs Elevated blood pressure (not hypertension) 12/3105/28/2020 Overview: sBP < 140 sBP 110-130 Continue to monitor МАРИНА (acute kidney injury) 07/24/20142020 Overview: Creat 2.11 Nephrology recs appreciated Na 137 ICH (intracerebral hemorrhage) 07/17/2014 0 05/28/2020 Overview: History: R occipital ICH/IVH 07/17/14 s/p R temporal crani for evacuation. R frontal ICH/IVH 12/2014 s/p R frontal crani and hematoma evacuation; Cerebral angiogram was negative for aneurysm or AVM - Embolic L MCA (M1) territory stroke in 01/2015 Assessment: AXOx3, mild aphasia, right hemianopsia Plan: speech and OT consult Last Assessment & Plan: R occipital ICH/IVH 07/17/14 s/p R temporal crani for evacuation. R frontal ICH/IVH 12/2014 s/p R frontal crani and hematoma evacuation -Cerebral angiogram was negative for aneurysm or AVM -Symptoms are stable Acute respiratory failure 07/17/20142014 Overview: Patient intubated for surgery. 07/18 extubated post surgery. Chronic pain disorder 07/02/2012 07/02/2012 Overview: L arm pain, on percocet at home No with some distal L arm pain in distal radial distribution Plan: -Percolone q3, ?transition to long acting -Colace Aortic aneurysm without rupture 06/29/2012 06/30/2017 Overview: -MRI/MRA chest which revealed a slight interval increase in the size of the aneurysmal aortic root now measuring 5.2 cm (previously measuring 4.9 cm). No evidence of dissection. -HD stable, SBP: 111-131 Plan: -BP control -F/u CTS recs to confirm no intervention necessary -If no intervention necessary, likely d/c home soon given that there is no dissection Hyponatremia 12/12/2009 12/16/2009 Overview: Sodium WNL with aggressive diuresis. Was Likely dilutional etiology. Cont & taper diuretic. / Nonspecific T wave inversion. 12/12/2009 Overview: Patient's EKG notable for T wave inversion in leads II, III, aVf a well as the anterior leads upon admission to [facility] 12/12 which was a change from baseline EKG 12/09. Patient denies CP and other subjective complaints/changes. Cardiac enzymes sent -CK & MB elevated & troponin near baseline. Will cont to check serial [place]. D/W Dr. Arce - no other intevention at this time. / Leucocytosis 12/11/2009 12/12/2009 Overview: 12/11 - Afebrile. Conitnue daily monitoring Acute renal insufficiency 12/11/20092009 Overview: Post-op pre-renal bump in Cr to 1.47 12/11. Has since trended down with less aggressive diuresis. Cont with currect diuretic regimen as patient is fluid/volume overloaded. / Acute blood loss anemia 12/11/2009 07/02/19 13 Overview: H/H remains stable today, 12/17. Demonstrated inc CT output 12/11 & was given protamine. Subsequently had drop in H/H to 6.6/19.1 & was transfused 1U PRBC on 12/12 & 2U PRBC 12/13. CT shows small loculated pericardial effuision - confirmed with TTE. Hematology following for factor VIII replacement Rx. / Acute Pulmonary Edema/Fluid overload. 12/11/2009 07/02/2012 Overview: Weight remains below pre-op. Cont PEP/C&DB/OOB/Ambulate. 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 He will subsequently receive 7,364 units (6,750 units +/- 10%) q 12 hours. Check a factor 8 assay level s/p 3 doses ( 12/10 at 1700) Given at 07:25 AM today. Primary service would like to transfuse 2 units FFP in the unit 12/10 -: Factor VIII assay on 12/10 normal.PTT high,PT normal.CT output minimal.await hematology regarding factor VIII therapy. Preop testing 12/02/2009 12/10/2009 Overview: Blank means still needed; x means completed; NA means not applicable Surgeon: _JERAMIE___ Surgeon Visit: _X_ Informed Consent Completed: _X__ STS Score: unsupp CAD Yes/No __no__ Is intended procedure an Isolated CABG yes/no ___no___ If yes, is a beta jimmy ordered preop If no, why H & P: __x__ PA/LAT __x__ CXR: _x___ EKG: _x___ CT __x__ MRI ____ LE US ____ LHC: __NA___ Reviewed, yes or no _NA__ RHC _NA____ Echo: __x__ EF %: _55_ Labs:CBC x____ CMP __x__Creatinine __x__ PT/PTT __x__ INR ___x_ UA __x___ SA Swab __x___ Last Dose of Plavix PI's (R)____ (L) Carotid: __x__ Mapping: ____ Dental: __x__ PFT's: Op Note: ____ Pacemaker Check: ABO/ABO Confirmed/Blood ordered: __x___ Consults: DM: Cardiac Surgical prep: Congenital factor VIII disorder 09/02/2009 07/02/2017 Overview: PMHx: Hemophilia, 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 At home on 6400U Recombinate. Patient has been following with Dr. Lyons Plan: -Hematology consult - Continue Recombinate as scheduled -Monitor PT/PTT -IPCs documented as of this encounter (statuses as of 07/15/2021) [facility] of Past illness Narrative* Problem Noted Date Resolved Date Cerebrovascular accident (CV A) due to embolism of left carotid artery 01/18/2019 01/03/2021 Recurrent major depression in partial remission 01/18/2019 01/03/2021 Expressive aphasia 07/01/2017 01/03/2021 Overview: Following Left frontal region of MCA: resultant expressive aphasia. Last Assessment & Plan: Moderate aphasia -Continue speech exercises Lung nodule 09/28/2015 05/28/2020 Overview: Assessment: Cardiac chest CT scan 09/10/2015 reported Stable 5 mm calcified nodule right upper lobe. Based on current guidelines*, a repeat follow-up unenhanced low-dose CT can be obtained in 12 months at clinical discretion. Plan: Pt is aware, follow up w/ local MD. Tooth decay 09/26/2015 05/28/2020 Overview: History: Preop dental evaluation revealed gross decay and chronic abscess of tooth #2 Assessment: Dental recommended extraction of tooth #2. Plan: After clearance from ID, CTS, Hematology, pt underwent extraction #2 on 09/27/15. Continue amicar x 1 more dose today per Hematology. Seizure 09/26/2015 05/28/2020 Overview: History: H/o seizures, on keppra preop Assessment: 09/20/15 post op seizure in ICU. No further events Plan: Continue keppra. Follow up w/ Neurology after discharge. Last Assessment & Plan: Post stroke epilepsy -Continue Keppra 750mg twice daily -Medication compliance encouraged Atelectasis 09/20/2015 05/28/2020 Overview: History: CXR 09/26: Small pleural effusions have near completely resolved. Improvement of by basilar atelectatic changes .No pneumothorax Assessment: Wt is well below preop, on room air Plan: Encourage ambulation, C&DB, PEP. Stop lasix. Stress hyperglycemia 09/20/2015 09/23/2015 Overview: No h/o DM A/P: SSI. Hypovolemia 09/19/2015 09/24/2015 Overview: Post-op fluid shifts A/P: IVF resuscitation as needed. Essential hypertension 09/19/2015 Overview: History: no meds pre-op Assessment: SBP controlled Plan: continue metoprolol (changed to toprol XL), lisinopril. Follow up locally Last Assessment & Plan: Follow up with PCP Refill for Metoprolol provided Well controlled today. Severe aortic regurgitation 09/09/201512/22 Overview: History: 4+ AR Assessment: 09/19/2015 Reop: AVR #27 CE, Ascending aortic root replacement with composite graft including #32 gelweave graft Surgical Pathology: A. Aortic valve, excision - Bicuspid aortic valve with severe calcification and severe fibrosis (gross diagnosis only). B. Ascending aorta and Hemashield graft, excision - Chronic dissection. Plan: ASA daily. Postop echo 09/24/15: - No AR. The peak gradient is 22 mmHg, the mean gradient is 14 mmHg - EF = 35 5% - The right ventricle is normal in size. Right ventricular systolic function is normal. Post-op pain 09/09/2015 05/28/2020 Overview: History: Pre-op h/o back pain treated w/ oxycodone 20mg q 6hrs prn and MS contin 30mg tid. MRI 09/08 no evidence of discitis or osteomyelitis. Assessment: Verbalizes adequate pain relief on preop regimen. Plan: Continue Tylenol, lidoderm, and preop regimen of Oxycodone 20mg q 6hrs prn and MS Contin 30mg tid Preop testing 01/30/2015 09/23/2015 Overview: Images from the original note were not included. [facility] PRE[facility] Surgeon: Emmanuel Wang M.D. Informed Consent Completed: No STS Score: AV Replacement Risk of Mortality: 2.61% Morbidity or Mortality: 29.84% Long Length of Stay: 16.325% Short Length of Stay: 15.915% Permanent Stroke: 2.899% Prolonged Ventilation: 22.329% DSW Infection: 0.168% Renal Failure: 5.656% Reoperation: 12.001% CAD: No Is intended procedure a CABG: No - is a beta jimmy ordered? No - reason: no documented CAD H & P completed: Yes PA/LAT: will need prior to surg CT: completed MRI:brain Completed LE US: N/A Cath: No Echo:Completed EKG: Completed EF %: 54% PI's: N/A Carotid: MRA of carotid: Completed Mapping: N/A Dental: Completed s/p extractions 12/2014 PFT's: N/A Recent Labs 01/30/15 0026 WBC 4.72 HB 9.9* HCT 30.4* PLT 185 INR 1.0 CREAT 0.75 UA: Normal HCG:N/A ABO/ABO Confirmed: Yes Blood ordered: Yes SA Swab: Yes - results: Negative Last Dose of Anticoagulation: heparin Op Note: Yes for surgery on 2009 Pacemaker Check: N/A Consults: ID, hematology DM: No Cardiac Surgical prep: Yes SIGNATURE: Ginette Luna CNP DATE of SERVICE: 01/30/2015 TIME of SERVICE: 4:19 PM Teri Gates CNP February 08, 2015 2:20 PM Pain 01/29/2015 05/28/2020 Overview: ,date--> increased narc dose for more optimal pain management. Endocarditis 01/29/2015 07/02/2017 Overview: History: January 29, 2015--> TTE completed--> continued changes c/w endocarditis on bicuspid aortic valve, similar to that seen on SABRA completed on 01/03/15. 01/30 cultures remain negative Assessment: WBC's WNL, afebrile Plan: Per ID: continue doxycline 100 mg po for possible Bartonella will review pathology of explanted valve with Dr Serrano when ready sequencing for Bartonella pending Stroke (cerebrum) 01/27/2015 01/03/2021 Overview: January 28, 2015--> likely cardioembolic. Following cardiology recs re: echo technque required for otpimal medcial dec. making wrt management/storke prevention. 01/30 as above January 31, 2015--> spoke to CTS staff who resuested a ntoe from stroke about recommended timing on Valve repalcement surgery, given his recent infarct. Also requested c/s from Hematology re: periop/intraop management of his primary coagulopathy. He also indicated that Mr. Harrington will need to undergo a SABRA and conv angio just prior to surgery, but alba snot need either study at this time. 07/29/17 Followed with [facility] neuro -[facility] Last Assessment & Plan: Secondary to I.E -Symptoms stable -Continue speech exercises Seizure 01/27/2015 09/23/2015 Overview: AEDs: fosPHT and keppra January 28, 2015--> remains seizure free on PHTN and keppar. PHTN level 1.4 yday. continuing serial PHTN levels to confirm optimal. January 29, 2015--> switchiing to oral keppra. Fospheny stopped -continue on Keppra. DVT prophylaxis 01/02/2015 01/03/2021 Overview: Ambulatory SCDS No chemoprophylactic due to hemorrhage Congenital bicuspid aortic valve 01/02/2015 05/28/2020 Overview: Monitor: pt will follow outpatient. Infective endocarditis of aortic valve 5 01/03/2021 Overview: History: Large vegetation on the [place] bicuspid aortic valve. 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 Was initially being medically managed w/ ceftriaxone/doxycline due to high surgical risk: redo status, hemophilia, spontaneous intracranial bleeds. Assessment: 09/19/2015 Reop: AVR #27 CE, Ascending aortic root replacement with composite graft including #32 Per ID note: Difficult to know exactly what the echodensities represent. His history does not robustly support a diagnosis of IE and GN may also be associated with Bartonella IE. He has been treated appropriately with antibiotics for Bartonella. Plan: Per ID recommendations: -continue oral 100 mg po for possible Bartonella -will review pathology of explanted valve with Dr Park today but report no evidence for IE -sequencing for Bartonella pending ( will plan on oral doxcycline until l results back) -no need for CoPAT Spoke to ID: ID will follow up on OR results, ok to discharge pt on doxycycline 100mg q 12 hrs Elevated blood pressure (not hypertension) 12/3105/28/2020 Overview: sBP < 140 sBP 110-130 Continue to monitor МАРИНА (acute kidney injury) 07/24/20142020 Overview: Creat 2.11 Nephrology recs appreciated Na 137 ICH (intracerebral hemorrhage) 07/17/2014 0 05/28/2020 Overview: History: R occipital ICH/IVH 07/17/14 s/p R temporal crani for evacuation. R frontal ICH/IVH 12/2014 s/p R frontal crani and hematoma evacuation; Cerebral angiogram was negative for aneurysm or AVM - Embolic L MCA (M1) territory stroke in 01/2015 Assessment: AXOx3, mild aphasia, right hemianopsia Plan: speech and OT consult Last Assessment & Plan: R occipital ICH/IVH 07/17/14 s/p R temporal crani for evacuation. R frontal ICH/IVH 12/2014 s/p R frontal crani and hematoma evacuation -Cerebral angiogram was negative for aneurysm or AVM -Symptoms are stable Acute respiratory failure 07/17/20142014 Overview: Patient intubated for surgery. 07/18 extubated post surgery. Chronic pain disorder 07/02/2012 07/02/2012 Overview: L arm pain, on percocet at home No with some distal L arm pain in distal radial distribution Plan: -Percolone q3, ?transition to long acting -Colace Aortic aneurysm without rupture 06/29/2012 06/30/2017 Overview: -MRI/MRA chest which revealed a slight interval increase in the size of the aneurysmal aortic root now measuring 5.2 cm (previously measuring 4.9 cm). No evidence of dissection. -HD stable, SBP: 111-131 Plan: -BP control -F/u CTS recs to confirm no intervention necessary -If no intervention necessary, likely d/c home soon given that there is no dissection Hyponatremia 12/12/2009 12/16/2009 Overview: Sodium WNL with aggressive diuresis. Was Likely dilutional etiology. Cont & taper diuretic. / Nonspecific T wave inversion. 12/12/2009 Overview: Patient's EKG notable for T wave inversion in leads II, III, aVf a well as the anterior leads upon admission to [facility] 12/12 which was a change from baseline EKG 12/09. Patient denies CP and other subjective complaints/changes. Cardiac enzymes sent -CK & MB elevated & troponin near baseline. Will cont to check serial Ambrose. D/W Dr. Arce - no other intevention at this time. / Leucocytosis 12/11/2009 12/12/2009 Overview: 12/11 - Afebrile. Conitnue daily monitoring Acute renal insufficiency 12/11/20092009 Overview: Post-op pre-renal bump in Cr to 1.47 12/11. Has since trended down with less aggressive diuresis. Cont with currect diuretic regimen as patient is fluid/volume overloaded. / Acute blood loss anemia 12/11/2009 07/02/19 13 Overview: H/H remains stable today, 12/17. Demonstrated inc CT output 12/11 & was given protamine. Subsequently had drop in H/H to 6.6/19.1 & was transfused 1U PRBC on 12/12 & 2U PRBC 12/13. CT shows small loculated pericardial effuision - confirmed with TTE. Hematology following for factor VIII replacement Rx. / Acute Pulmonary Edema/Fluid overload. 12/11/2009 07/02/2012 Overview: Weight remains below pre-op. Cont PEP/C&DB/OOB/Ambulate. 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 He will subsequently receive 7,364 units (6,750 units +/- 10%) q 12 hours. Check a factor 8 assay level s/p 3 doses ( 12/10 at 1700) Given at 07:25 AM today. Primary service would like to transfuse 2 units FFP in the unit 12/10: Factor VIII assay on 12/10 normal.PTT high,PT normal.CT output minimal.await hematology regarding factor VIII therapy. Preop testing 12/02/2009 12/10/2009 Overview: Blank means still needed; x means completed; NA means not applicable Surgeon: _BWL___ Surgeon Visit: _X_ Informed Consent Completed: _X__ STS Score: unsupp CAD Yes/No __no__ Is intended procedure an Isolated CABG yes/no ___no___ If yes, is a beta jimmy ordered preop If no, why H & P: __x__ PA/LAT __x__ CXR: _x___ EKG: _x___ CT __x__ MRI ____ LE US ____ LHC: __NA___ Reviewed, yes or no _NA__ RHC _NA____ Echo: __x__ EF %: _55_ Labs:CBC x____ CMP __x__Creatinine __x__ PT/PTT __x__ INR ___x_ UA __x___ SA Swab __x___ Last Dose of Plavix PI's (R)____ (L) Carotid: __x__ Mapping: ____ Dental: __x__ PFT's: Op Note: ____ Pacemaker Check: ABO/ABO Confirmed/Blood ordered: __x___ Consults: DM: Cardiac Surgical prep: Congenital factor VIII disorder 09/02/2009 07/02/2017 Overview: PMHx: Hemophilia, 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 At home on 6400U Recombinate. Patient has been following with Dr. Lyons Plan: -Hematology consult - Continue Recombinate as scheduled -Monitor PT/PTT -IPCs documented as of this encounter (statuses as of 09/26/2021) [facility] History of Past illness Narrative* Problem Noted Date Resolved Date Cerebrovascular accident (CV A) due to embolism of left carotid artery 01/18/2019 01/03/2021 Recurrent major depression in partial remission 01/18/2019 01/03/2021 Expressive aphasia 07/01/2017 01/03/2021 Overview: Following Left frontal region of MCA: resultant expressive aphasia. Last Assessment & Plan: Moderate aphasia -Continue speech exercises Lung nodule 09/28/2015 05/28/2020 Overview: Assessment: Cardiac chest CT scan 09/10/2015 reported Stable 5 mm calcified nodule right upper lobe. Based on current guidelines*, a repeat follow-up unenhanced low-dose CT can be obtained in 12 months at clinical discretion. Plan: Pt is aware, follow up w/ local . Tooth decay 09/26/2015 05/28/2020 Overview: History: Preop dental evaluation revealed gross decay and chronic abscess of tooth #2 Assessment: Dental recommended extraction of tooth #2. Plan: After clearance from ID, CTS, Hematology, pt underwent extraction #2 on 09/27/15. Continue amicar x 1 more dose today per Hematology. Seizure 09/26/2015 05/28/2020 Overview: History: H/o seizures, on keppra preop Assessment: 09/20/15 post op seizure in ICU. No further events Plan: Continue keppra. Follow up w/ Neurology after discharge. Last Assessment & Plan: Post stroke epilepsy -Continue Keppra 750mg twice daily -Medication compliance encouraged Atelectasis 09/20/2015 05/28/2020 Overview: History: CXR 09/26: Small pleural effusions have near completely resolved. Improvement of by basilar atelectatic changes .No pneumothorax Assessment: Wt is well below preop, on room air Plan: Encourage ambulation, C&DB, PEP. Stop lasix. Stress hyperglycemia 09/20/2015 09/23/2015 Overview: No h/o DM A/P: SSI. Hypovolemia 09/19/2015 09/24/2015 Overview: Post-op fluid shifts A/P: IVF resuscitation as needed. Essential hypertension 09/19/2015 Overview: History: no meds pre-op Assessment: SBP controlled Plan: continue metoprolol (changed to toprol XL), lisinopril. Follow up locally Last Assessment & Plan: Follow up with PCP Refill for Metoprolol provided Well controlled today. Severe aortic regurgitation 09/09/201512/22 Overview: History: 4+ AR Assessment: 09/19/2015 Reop: AVR #27 CE, Ascending aortic root replacement with composite graft including #32 gelweave graft Surgical Pathology: A. Aortic valve, excision - Bicuspid aortic valve with severe calcification and severe fibrosis (gross diagnosis only). B. Ascending aorta and Hemashield graft, excision - Chronic dissection. Plan: ASA daily. Postop echo 09/24/15: - No AR. The peak gradient is 22 mmHg, the mean gradient is 14 mmHg - EF = 35 5% - The right ventricle is normal in size. Right ventricular systolic function is normal. Post-op pain 09/09/2015 05/28/2020 Overview: History: Pre-op h/o back pain treated w/ oxycodone 20mg q 6hrs prn and MS contin 30mg tid. MRI 09/08 no evidence of discitis or osteomyelitis. Assessment: Verbalizes adequate pain relief on preop regimen. Plan: Continue Tylenol, lidoderm, and preop regimen of Oxycodone 20mg q 6hrs prn and MS Contin 30mg tid Preop testing 01/30/2015 09/23/2015 Overview: Images from the original note were not included. [facility] PRE[facility] Surgeon: Emmanuel Wang M.D. Informed Consent Completed: No STS Score: AV Replacement Risk of Mortality: 2.61% Morbidity or Mortality: 29.84% Long Length of Stay: 16.325% Short Length of Stay: 15.915% Permanent Stroke: 2.899% Prolonged Ventilation: 22.329% DSW Infection: 0.168% Renal Failure: 5.656% Reoperation: 12.001% CAD: No Is intended procedure a CABG: No - is a beta jimmy ordered? No - reason: no documented CAD H & P completed: Yes PA/LAT: will need prior to surg CT: completed MRI:brain Completed LE US: N/A Cath: No Echo:Completed EKG: Completed EF %: 54% PI's: N/A Carotid: MRA of carotid: Completed Mapping: N/A Dental: Completed s/p extractions 12/2014 PFT's: N/A Recent Labs 01/30/15 0026 WBC 4.72 HB 9.9* HCT 30.4* PLT 185 INR 1.0 CREAT 0.75 UA: Normal HCG:N/A ABO/ABO Confirmed: Yes Blood ordered: Yes SA Swab: Yes - results: Negative Last Dose of Anticoagulation: heparin Op Note: Yes for surgery on 2009 Pacemaker Check: N/A Consults: ID, hematology DM: No Cardiac Surgical prep: Yes SIGNATURE: Ginette Luna CNP DATE of SERVICE: 01/30/2015 TIME of SERVICE: 4:19 PM Teri Gates CNP February 08, 2015 2:20 PM Pain 01/29/2015 05/28/2020 Overview: ,date--> increased narc dose for more optimal pain management. Endocarditis 01/29/2015 07/02/2017 Overview: History: January 29, 2015--> TTE completed--> continued changes c/w endocarditis on bicuspid aortic valve, similar to that seen on SABRA completed on 01/03/15. 01/30 cultures remain negative Assessment: WBC's WNL, afebrile Plan: Per ID: continue doxycline 100 mg po for possible Bartonella will review pathology of explanted valve with Dr Serrano when ready sequencing for Bartonella pending Stroke (cerebrum) 01/27/2015 01/03/2021 Overview: January 28, 2015--> likely cardioembolic. Following cardiology recs re: echo technque required for otpimal medcial dec. making wrt management/storke prevention. 01/30 as above January 31, 2015--> spoke to CTS staff who resuested a ntoe from stroke about recommended timing on Valve repalcement surgery, given his recent infarct. Also requested c/s from Hematology re: periop/intraop management of his primary coagulopathy. He also indicated that Mr. Harrington will need to undergo a SABRA and conv angio just prior to surgery, but alba snot need either study at this time. 07/29/17 Followed with [facility] Last Assessment & Plan: Secondary to I.E -Symptoms stable -Continue speech exercises Seizure 01/27/2015 09/23/2015 Overview: AEDs: fosPHT and keppra January 28, 2015--> remains seizure free on PHTN and keppar. PHTN level 1.4 yday. continuing serial PHTN levels to confirm optimal. January 29, 2015--> switchiing to oral keppra. Fospheny stopped -continue on Keppra. DVT prophylaxis 01/02/2015 01/03/2021 Overview: Ambulatory SCDS No chemoprophylactic due to hemorrhage Congenital bicuspid aortic valve 01/02/2015 05/28/2020 Overview: Monitor: pt will follow outpatient. Infective endocarditis of aortic valve 5 01/03/2021 Overview: History: Large vegetation on the [place] bicuspid aortic valve. 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 Was initially being medically managed w/ ceftriaxone/doxycline due to high surgical risk: redo status, hemophilia, spontaneous intracranial bleeds. Assessment: 09/19/2015 Reop: AVR #27 CE, Ascending aortic root replacement with composite graft including #32 Per ID note: Difficult to know exactly what the echodensities represent. His history does not robustly support a diagnosis of IE and GN may also be associated with Bartonella IE. He has been treated appropriately with antibiotics for Bartonella. Plan: Per ID recommendations: -continue oral 100 mg po for possible Bartonella -will review pathology of explanted valve with Dr Park today but report no evidence for IE -sequencing for Bartonella pending ( will plan on oral doxcycline until l results back) -no need for CoPAT Spoke to ID: ID will follow up on OR results, ok to discharge pt on doxycycline 100mg q 12 hrs Elevated blood pressure (not hypertension) 12/3105/28/2020 Overview: sBP < 140 sBP 110-130 Continue to monitor МАРИНА (acute kidney injury) 07/24/20142020 Overview: Creat 2.11 Nephrology recs appreciated Na 137 ICH (intracerebral hemorrhage) 07/17/2014 0 05/28/2020 Overview: History: R occipital ICH/IVH 07/17/14 s/p R temporal crani for evacuation. R frontal ICH/IVH 12/2014 s/p R frontal crani and hematoma evacuation; Cerebral angiogram was negative for aneurysm or AVM - Embolic L MCA (M1) territory stroke in 01/2015 Assessment: AXOx3, mild aphasia, right hemianopsia Plan: speech and OT consult Last Assessment & Plan: R occipital ICH/IVH 07/17/14 s/p R temporal crani for evacuation. R frontal ICH/IVH 12/2014 s/p R frontal crani and hematoma evacuation -Cerebral angiogram was negative for aneurysm or AVM -Symptoms are stable Acute respiratory failure 07/17/20142014 Overview: Patient intubated for surgery. 07/18 extubated post surgery. Chronic pain disorder 07/02/2012 07/02/2012 Overview: L arm pain, on percocet at home No with some distal L arm pain in distal radial distribution Plan: -Percolone q3, ?transition to long acting -Colace Aortic aneurysm without rupture 06/29/2012 06/30/2017 Overview: -MRI/MRA chest which revealed a slight interval increase in the size of the aneurysmal aortic root now measuring 5.2 cm (previously measuring 4.9 cm). No evidence of dissection. -HD stable, SBP: 111-131 Plan: -BP control -F/u CTS recs to confirm no intervention necessary -If no intervention necessary, likely d/c home soon given that there is no dissection Hyponatremia 12/12/2009 12/16/2009 Overview: Sodium WNL with aggressive diuresis. Was Likely dilutional etiology. Cont & taper diuretic. / Nonspecific T wave inversion. 12/12/2009 Overview: Patient's EKG notable for T wave inversion in leads II, III, aVf a well as the anterior leads upon admission to [facility] 12/12 which was a change from baseline EKG 12/09. Patient denies CP and other subjective complaints/changes. Cardiac enzymes sent -CK & MB elevated & troponin near baseline. Will cont to check serial Ambrose. D/W Dr. Arce - no other intevention at this time. / Leucocytosis 12/11/2009 12/12/2009 Overview: 12/11 - Afebrile. Conitnue daily monitoring Acute renal insufficiency 12/11/20092009 Overview: Post-op pre-renal bump in Cr to 1.47 12/11. Has since trended down with less aggressive diuresis. Cont with currect diuretic regimen as patient is fluid/volume overloaded. / Acute blood loss anemia 12/11/2009 07/02/19 13 Overview: H/H remains stable today, 12/17. Demonstrated inc CT output 12/11 & was given protamine. Subsequently had drop in H/H to 6.6/.1 & was transfused 1U PRBC on 12/12 & 2U PRBC 12/13. CT shows small loculated pericardial effuision - confirmed with TTE. Hematology following for factor VIII replacement Rx. / Acute Pulmonary Edema/Fluid overload. 12/11/2009 07/02/2012 Overview: Weight remains below pre-op. Cont PEP/C&DB/OOB/Ambulate. 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 He will subsequently receive 7,364 units (6,750 units +/- 10%) q 12 hours. Check a factor 8 assay level s/p 3 doses ( 12/10 at 1700) Given at 07:25 AM today. Primary service would like to transfuse 2 units FFP in the unit 12/10 -: Factor VIII assay on 12/10 normal.PTT high,PT normal.CT output minimal.await hematology regarding factor VIII therapy. Preop testing 12/02/2009 12/10/2009 Overview: Blank means still needed; x means completed; NA means not applicable Surgeon: _BWL___ Surgeon Visit: _X_ Informed Consent Completed: _X__ STS Score: unsupp CAD Yes/No __no__ Is intended procedure an Isolated CABG yes/no ___no___ If yes, is a beta jimmy ordered preop If no, why H & P: __x__ PA/LAT __x__ CXR: _x___ EKG: _x___ CT __x__ MRI ____ LE US ____ LHC: __NA___ Reviewed, yes or no _NA__ RHC _NA____ Echo: __x__ EF %: _55_ Labs:CBC x____ CMP __x__Creatinine __x__ PT/PTT __x__ INR ___x_ UA __x___ SA Swab __x___ Last Dose of Plavix PI's (R)____ (L) Carotid: __x__ Mapping: ____ Dental: __x__ PFT's: Op Note: ____ Pacemaker Check: ABO/ABO Confirmed/Blood ordered: __x___ Consults: DM: Cardiac Surgical prep: Congenital factor VIII disorder 09/02/2009 07/02/2017 Overview: PMHx: Hemophilia, 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 At home on 6400U Recombinate. Patient has been following with Dr. Lyons Plan: -Hematology consult - Continue Recombinate as scheduled -Monitor PT/PTT -IPCs documented as of this encounter (statuses as of 12/06/2021) [facility] History of Past illness Narrative* Problem Noted Date Resolved Date Cerebrovascular accident (CV A) due to embolism of left carotid artery 01/18/2019 01/03/2021 Recurrent major depression in partial remission 01/18/2019 01/03/2021 Expressive aphasia 07/01/2017 01/03/2021 Overview: Following Left frontal region of MCA: resultant expressive aphasia. Last Assessment & Plan: Moderate aphasia -Continue speech exercises Lung nodule 09/28/2015 05/28/2020 Overview: Assessment: Cardiac chest CT scan 09/10/2015 reported Stable 5 mm calcified nodule right upper lobe. Based on current guidelines*, a repeat follow-up unenhanced low-dose CT can be obtained in 12 months at clinical discretion. Plan: Pt is aware, follow up w/ local MD. Tooth decay 09/26/2015 05/28/2020 Overview: History: Preop dental evaluation revealed gross decay and chronic abscess of tooth #2 Assessment: Dental recommended extraction of tooth #2. Plan: After clearance from ID, CTS, Hematology, pt underwent extraction #2 on 09/27/15. Continue amicar x 1 more dose today per Hematology. Seizure 09/26/2015 05/28/2020 Overview: History: H/o seizures, on keppra preop Assessment: 09/20/15 post op seizure in ICU. No further events Plan: Continue keppra. Follow up w/ Neurology after discharge. Last Assessment & Plan: Post stroke epilepsy -Continue Keppra 750mg twice daily -Medication compliance encouraged Atelectasis 09/20/2015 05/28/2020 Overview: History: CXR 09/26: Small pleural effusions have near completely resolved. Improvement of by basilar atelectatic changes .No pneumothorax Assessment: Wt is well below preop, on room air Plan: Encourage ambulation, C&DB, PEP. Stop lasix. Stress hyperglycemia 09/20/2015 09/23/2015 Overview: No h/o DM A/P: SSI. Hypovolemia 09/19/2015 09/24/2015 Overview: Post-op fluid shifts A/P: IVF resuscitation as needed. Essential hypertension 09/19/2015 Overview: History: no meds pre-op Assessment: SBP controlled Plan: continue metoprolol (changed to toprol XL), lisinopril. Follow up locally Last Assessment & Plan: Follow up with PCP Refill for Metoprolol provided Well controlled today. Severe aortic regurgitation 09/09/201512/22 Overview: History: 4+ AR Assessment: 09/19/2015 Reop: AVR #27 CE, Ascending aortic root replacement with composite graft including #32 gelweave graft Surgical Pathology: A. Aortic valve, excision - Bicuspid aortic valve with severe calcification and severe fibrosis (gross diagnosis only). B. Ascending aorta and Hemashield graft, excision - Chronic dissection. Plan: ASA daily. Postop echo 09/24/15: - No AR. The peak gradient is 22 mmHg, the mean gradient is 14 mmHg - EF = 35 5% - The right ventricle is normal in size. Right ventricular systolic function is normal. Post-op pain 09/09/2015 05/28/2020 Overview: History: Pre-op h/o back pain treated w/ oxycodone 20mg q 6hrs prn and MS contin 30mg tid. MRI 09/08 no evidence of discitis or osteomyelitis. Assessment: Verbalizes adequate pain relief on preop regimen. Plan: Continue Tylenol, lidoderm, and preop regimen of Oxycodone 20mg q 6hrs prn and MS Contin 30mg tid Preop testing 01/30/2015 09/23/2015 Overview: Images from the original note were not included. [facility] PRE[facility] Surgeon: Emmanuel Wang M.D. Informed Consent Completed: No STS Score: AV Replacement Risk of Mortality: 2.61% Morbidity or Mortality: 29.84% Long Length of Stay: 16.325% Short Length of Stay: 15.915% Permanent Stroke: 2.899% Prolonged Ventilation: 22.329% DSW Infection: 0.168% Renal Failure: 5.656% Reoperation: 12.001% CAD: No Is intended procedure a CABG: No - is a beta jimmy ordered? No - reason: no documented CAD H & P completed: Yes PA/LAT: will need prior to surg CT: completed MRI:brain Completed LE US: N/A Cath: No Echo:Completed EKG: Completed EF %: 54% PI's: N/A Carotid: MRA of carotid: Completed Mapping: N/A Dental: Completed s/p extractions 12/2014 PFT's: N/A Recent Labs 01/30/15 0026 WBC 4.72 HB 9.9* HCT 30.4* PLT 185 INR 1.0 CREAT 0.75 UA: Normal HCG:N/A ABO/ABO Confirmed: Yes Blood ordered: Yes SA Swab: Yes - results: Negative Last Dose of Anticoagulation: heparin Op Note: Yes for surgery on 2009 Pacemaker Check: N/A Consults: ID, hematology DM: No Cardiac Surgical prep: Yes SIGNATURE: Ginette Luna CNP DATE of SERVICE: 01/30/2015 TIME of SERVICE: 4:19 PM Teri Gates CNP February 08, 2015 2:20 PM Pain 01/29/2015 05/28/2020 Overview: ,date--> increased narc dose for more optimal pain management. Endocarditis 01/29/2015 07/02/2017 Overview: History: January 29, 2015--> TTE completed--> continued changes c/w endocarditis on bicuspid aortic valve, similar to that seen on SABRA completed on 01/03/15. 01/30 cultures remain negative Assessment: WBC's WNL, afebrile Plan: Per ID: continue doxycline 100 mg po for possible Bartonella will review pathology of explanted valve with Dr Serrano when ready sequencing for Bartonella pending Stroke (cerebrum) 01/27/2015 01/03/2021 Overview: January 28, 2015--> likely cardioembolic. Following cardiology recs re: echo technque required for otpimal medcial dec. making wrt management/storke prevention. 01/30 as above January 31, 2015--> spoke to CTS staff who resuested a ntoe from stroke about recommended timing on Valve repalcement surgery, given his recent infarct. Also requested c/s from Hematology re: periop/intraop management of his primary coagulopathy. He also indicated that Mr. Harrington will need to undergo a SABRA and conv angio just prior to surgery, but alba snot need either study at this time. 07/29/17 Followed with [facility] -[facility] Last Assessment & Plan: Secondary to I.E -Symptoms stable -Continue speech exercises Seizure 01/27/2015 09/23/2015 Overview: AEDs: fosPHT and keppra January 28, 2015--> remains seizure free on PHTN and keppar. PHTN level 1.4 yday. continuing serial PHTN levels to confirm optimal. January 29, 2015--> switchiing to oral keppra. Fospheny stopped -continue on Keppra. DVT prophylaxis 01/02/2015 01/03/2021 Overview: Ambulatory SCDS No chemoprophylactic due to hemorrhage Congenital bicuspid aortic valve 01/02/2015 05/28/2020 Overview: Monitor: pt will follow outpatient. Infective endocarditis of aortic valve 5 01/03/2021 Overview: History: Large vegetation on the [place] bicuspid aortic valve. 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 Was initially being medically managed w/ ceftriaxone/doxycline due to high surgical risk: redo status, hemophilia, spontaneous intracranial bleeds. Assessment: 09/19/2015 Reop: AVR #27 CE, Ascending aortic root replacement with composite graft including #32 Per ID note: Difficult to know exactly what the echodensities represent. His history does not robustly support a diagnosis of IE and GN may also be associated with Bartonella IE. He has been treated appropriately with antibiotics for Bartonella. Plan: Per ID recommendations: -continue oral 100 mg po for possible Bartonella -will review pathology of explanted valve with Dr Park today but report no evidence for IE -sequencing for Bartonella pending ( will plan on oral doxcycline until l results back) -no need for CoPAT Spoke to ID: ID will follow up on OR results, ok to discharge pt on doxycycline 100mg q 12 hrs Elevated blood pressure (not hypertension) 12/3105/28/2020 Overview: sBP < 140 sBP 110-130 Continue to monitor МАРИНА (acute kidney injury) 07/24/20142020 Overview: Creat 2.11 Nephrology recs appreciated Na 137 ICH (intracerebral hemorrhage) 07/17/2014 0 05/28/2020 Overview: History: R occipital ICH/IVH 07/17/14 s/p R temporal crani for evacuation. R frontal ICH/IVH 12/2014 s/p R frontal crani and hematoma evacuation; Cerebral angiogram was negative for aneurysm or AVM - Embolic L MCA (M1) territory stroke in 01/2015 Assessment: AXOx3, mild aphasia, right hemianopsia Plan: speech and OT consult Last Assessment & Plan: R occipital ICH/IVH 07/17/14 s/p R temporal crani for evacuation. R frontal ICH/IVH 12/2014 s/p R frontal crani and hematoma evacuation -Cerebral angiogram was negative for aneurysm or AVM -Symptoms are stable Acute respiratory failure 07/17/20142014 Overview: Patient intubated for surgery. 07/18 extubated post surgery. Chronic pain disorder 07/02/2012 07/02/2012 Overview: L arm pain, on percocet at home No with some distal L arm pain in distal radial distribution Plan: -Percolone q3, ?transition to long acting -Colace Aortic aneurysm without rupture 06/29/2012 06/30/2017 Overview: -MRI/MRA chest which revealed a slight interval increase in the size of the aneurysmal aortic root now measuring 5.2 cm (previously measuring 4.9 cm). No evidence of dissection. -HD stable, SBP: 111-131 Plan: -BP control -F/u CTS recs to confirm no intervention necessary -If no intervention necessary, likely d/c home soon given that there is no dissection Hyponatremia 12/12/2009 12/16/2009 Overview: Sodium WNL with aggressive diuresis. Was Likely dilutional etiology. Cont & taper diuretic. / Nonspecific T wave inversion. 12/12/2009 Overview: Patient's EKG notable for T wave inversion in leads II, III, aVf a well as the anterior leads upon admission to [facility] 12/12 which was a change from baseline EKG 12/09. Patient denies CP and other subjective complaints/changes. Cardiac enzymes sent -CK & MB elevated & troponin near baseline. Will cont to check serial Ambrose. D/W Dr. Arce - no other intevention at this time. / Leucocytosis 12/11/2009 12/12/2009 Overview: 12/11 - Afebrile. Conitnue daily monitoring Acute renal insufficiency 12/11/20092009 Overview: Post-op pre-renal bump in Cr to 1.47 12/11. Has since trended down with less aggressive diuresis. Cont with currect diuretic regimen as patient is fluid/volume overloaded. / Acute blood loss anemia 12/11/2009 07/02/19 13 Overview: H/H remains stable today, 12/17. Demonstrated inc CT output 12/11 & was given protamine. Subsequently had drop in H/H to 6.6/19.1 & was transfused 1U PRBC on 12/12 & 2U PRBC 12/13. CT shows small loculated pericardial effuision - confirmed with TTE. Hematology following for factor VIII replacement Rx. / Acute Pulmonary Edema/Fluid overload. 12/11/2009 07/02/2012 Overview: Weight remains below pre-op. Cont PEP/C&DB/OOB/Ambulate. 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 He will subsequently receive 7,364 units (6,750 units +/- 10%) q 12 hours. Check a factor 8 assay level s/p 3 doses ( 12/10 at 1700) Given at 07:25 AM today. Primary service would like to transfuse 2 units FFP in the unit 12/10 -: Factor VIII assay on 12/10 normal.PTT high,PT normal.CT output minimal.await hematology regarding factor VIII therapy. Preop testing 12/02/2009 12/10/2009 Overview: Blank means still needed; x means completed; NA means not applicable Surgeon: _BWL___ Surgeon Visit: _X_ Informed Consent Completed: _X__ STS Score: unsupp CAD Yes/No __no__ Is intended procedure an Isolated CABG yes/no ___no___ If yes, is a beta jimmy ordered preop If no, why H & P: __x__ PA/LAT __x__ CXR: _x___ EKG: _x___ CT __x__ MRI ____ LE US ____ LHC: __NA___ Reviewed, yes or no _NA__ RHC _NA____ Echo: __x__ EF %: _55_ Labs:CBC x____ CMP __x__Creatinine __x__ PT/PTT __x__ INR ___x_ UA __x___ SA Swab __x___ Last Dose of Plavix PI's (R)____ (L) Carotid: __x__ Mapping: ____ Dental: __x__ PFT's: Op Note: ____ Pacemaker Check: ABO/ABO Confirmed/Blood ordered: __x___ Consults: DM: Cardiac Surgical prep: Congenital factor VIII disorder 09/02/2009 07/02/2017 Overview: PMHx: Hemophilia, 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 At home on 6400U Recombinate. Patient has been following with Dr. Lyons Plan: -Hematology consult - Continue Recombinate as scheduled -Monitor PT/PTT -IPCs documented as of this encounter (statuses as of 12/15/2021) [facility] History of Past illness Narrative* Problem Noted Date Resolved Date Cerebrovascular accident (CV A) due to embolism of left carotid artery 01/18/2019 01/03/2021 Recurrent major depression in partial remission 01/18/2019 01/03/2021 Expressive aphasia 07/01/2017 01/03/2021 Overview: Following Left frontal region of MCA: resultant expressive aphasia. Last Assessment & Plan: Moderate aphasia -Continue speech exercises Lung nodule 09/28/2015 05/28/2020 Overview: Assessment: Cardiac chest CT scan 09/10/2015 reported Stable 5 mm calcified nodule right upper lobe. Based on current guidelines*, a repeat follow-up unenhanced low-dose CT can be obtained in 12 months at clinical discretion. Plan: Pt is aware, follow up w/ local MD. Tooth decay 09/26/2015 05/28/2020 Overview: History: Preop dental evaluation revealed gross decay and chronic abscess of tooth #2 Assessment: Dental recommended extraction of tooth #2. Plan: After clearance from ID, CTS, Hematology, pt underwent extraction #2 on 09/27/15. Continue amicar x 1 more dose today per Hematology. Seizure 09/26/2015 05/28/2020 Overview: History: H/o seizures, on keppra preop Assessment: 09/20/15 post op seizure in ICU. No further events Plan: Continue keppra. Follow up w/ Neurology after discharge. Last Assessment & Plan: Post stroke epilepsy -Continue Keppra 750mg twice daily -Medication compliance encouraged Atelectasis 09/20/2015 05/28/2020 Overview: History: CXR 6: Small pleural effusions have near completely resolved. Improvement of by basilar atelectatic changes .No pneumothorax Assessment: Wt is well below preop, on room air Plan: Encourage ambulation, C&DB, PEP. Stop lasix. Stress hyperglycemia 09/20/2015 09/23/2015 Overview: No h/o DM A/P: SSI. Hypovolemia 09/19/2015 09/24/2015 Overview: Post-op fluid shifts A/P: IVF resuscitation as needed. Essential hypertension 09/19/2015 Overview: History: no meds pre-op Assessment: SBP controlled Plan: continue metoprolol (changed to toprol XL), lisinopril. Follow up locally Last Assessment & Plan: Follow up with PCP Refill for Metoprolol provided Well controlled today. Severe aortic regurgitation 09/09/201512/22 Overview: History: 4+ AR Assessment: 09/19/2015 Reop: AVR #27 CE, Ascending aortic root replacement with composite graft including #32 gelweave graft Surgical Pathology: A. Aortic valve, excision - Bicuspid aortic valve with severe calcification and severe fibrosis (gross diagnosis only). B. Ascending aorta and Hemashield graft, excision - Chronic dissection. Plan: ASA daily. Postop echo 09/24/15: - No AR. The peak gradient is 22 mmHg, the mean gradient is 14 mmHg - EF = 35 5% - The right ventricle is normal in size. Right ventricular systolic function is normal. Post-op pain 09/09/2015 05/28/2020 Overview: History: Pre-op h/o back pain treated w/ oxycodone 20mg q 6hrs prn and MS contin 30mg tid. MRI 09/08 no evidence of discitis or osteomyelitis. Assessment: Verbalizes adequate pain relief on preop regimen. Plan: Continue Tylenol, lidoderm, and preop regimen of Oxycodone 20mg q 6hrs prn and MS Contin 30mg tid Preop testing 01/30/2015 09/23/2015 Overview: Images from the original note were not included. [facility] PRE[facility] Surgeon: Emmanuel Wang M.D. Informed Consent Completed: No STS Score: AV Replacement Risk of Mortality: 2.61% Morbidity or Mortality: 29.84% Long Length of Stay: 16.325% Short Length of Stay: 15.915% Permanent Stroke: 2.899% Prolonged Ventilation: 22.329% DSW Infection: 0.168% Renal Failure: 5.656% Reoperation: 12.001% CAD: No Is intended procedure a CABG: No - is a beta jimmy ordered? No - reason: no documented CAD H & P completed: Yes PA/LAT: will need prior to surg CT: completed MRI:brain Completed LE US: N/A Cath: No Echo:Completed EKG: Completed EF %: 54% PI's: N/A Carotid: MRA of carotid: Completed Mapping: N/A Dental: Completed s/p extractions 12/2014 PFT's: N/A Recent Labs 01/30/15 0026 WBC 4.72 HB 9.9* HCT 30.4* PLT 185 INR 1.0 CREAT 0.75 UA: Normal HCG:N/A ABO/ABO Confirmed: Yes Blood ordered: Yes SA Swab: Yes - results: Negative Last Dose of Anticoagulation: heparin Op Note: Yes for surgery on 2009 Pacemaker Check: N/A Consults: ID, hematology DM: No Cardiac Surgical prep: Yes SIGNATURE: Ginette Luna CNP DATE of SERVICE: 01/30/2015 TIME of SERVICE: 4:19 PM Teri Gates CNP February 08, 2015 2:20 PM Pain 01/29/2015 05/28/2020 Overview: ,date--> increased narc dose for more optimal pain management. Endocarditis 01/29/2015 07/02/2017 Overview: History: January 29, 2015--> TTE completed--> continued changes c/w endocarditis on bicuspid aortic valve, similar to that seen on SABRA completed on 01/03/15. 01/30 cultures remain negative Assessment: WBC's WNL, afebrile Plan: Per ID: continue doxycline 100 mg po for possible Bartonella will review pathology of explanted valve with Dr Serrano when ready sequencing for Bartonella pending Stroke (cerebrum) 01/27/2015 01/03/2021 Overview: January 28, 2015--> likely cardioembolic. Following cardiology recs re: echo technque required for otpimal medcial dec. making wrt management/storke prevention. 01/30 as above January 31, 2015--> spoke to CTS staff who resuested a ntoe from stroke about recommended timing on Valve repalcement surgery, given his recent infarct. Also requested c/s from Hematology re: periop/intraop management of his primary coagulopathy. He also indicated that Mr. Harrington will need to undergo a SABRA and conv angio just prior to surgery, but alba snot need either study at this time. 07/29/17 Followed with [facility] Last Assessment & Plan: Secondary to I.E -Symptoms stable -Continue speech exercises Seizure 01/27/2015 09/23/2015 Overview: AEDs: fosPHT and keppra January 28, 2015--> remains seizure free on PHTN and keppar. PHTN level 1.4 yday. continuing serial PHTN levels to confirm optimal. January 29, 2015--> switchiing to oral keppra. Fospheny stopped -continue on Keppra. DVT prophylaxis 01/02/2015 01/03/2021 Overview: Ambulatory SCDS No chemoprophylactic due to hemorrhage Congenital bicuspid aortic valve 01/02/2015 05/28/2020 Overview: Monitor: pt will follow outpatient. Infective endocarditis of aortic valve 5 01/03/2021 Overview: History: Large vegetation on the [place] bicuspid aortic valve. 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 Was initially being medically managed w/ ceftriaxone/doxycline due to high surgical risk: redo status, hemophilia, spontaneous intracranial bleeds. Assessment: 09/19/2015 Reop: AVR #27 CE, Ascending aortic root replacement with composite graft including #32 Per ID note: Difficult to know exactly what the echodensities represent. His history does not robustly support a diagnosis of IE and GN may also be associated with Bartonella IE. He has been treated appropriately with antibiotics for Bartonella. Plan: Per ID recommendations: -continue oral 100 mg po for possible Bartonella -will review pathology of explanted valve with Dr Park today but report no evidence for IE -sequencing for Bartonella pending ( will plan on oral doxcycline until l results back) -no need for CoPAT Spoke to ID: ID will follow up on OR results, ok to discharge pt on doxycycline 100mg q 12 hrs Elevated blood pressure (not hypertension) 12/3105/28/2020 Overview: sBP < 140 sBP 110-130 Continue to monitor МАРИНА (acute kidney injury) 07/24/20142020 Overview: Creat 2.11 Nephrology recs appreciated Na 137 ICH (intracerebral hemorrhage) 07/17/2014 0 05/28/2020 Overview: History: R occipital ICH/IVH 07/17/14 s/p R temporal crani for evacuation. R frontal ICH/IVH 12/2014 s/p R frontal crani and hematoma evacuation; Cerebral angiogram was negative for aneurysm or AVM - Embolic L MCA (M1) territory stroke in 01/2015 Assessment: AXOx3, mild aphasia, right hemianopsia Plan: speech and OT consult Last Assessment & Plan: R occipital ICH/IVH 07/17/14 s/p R temporal crani for evacuation. R frontal ICH/IVH 12/2014 s/p R frontal crani and hematoma evacuation -Cerebral angiogram was negative for aneurysm or AVM -Symptoms are stable Acute respiratory failure 07/17/20142014 Overview: Patient intubated for surgery. 07/18 extubated post surgery. Chronic pain disorder 07/02/2012 07/02/2012 Overview: L arm pain, on percocet at home No with some distal L arm pain in distal radial distribution Plan: -Percolone q3, ?transition to long acting -Colace Aortic aneurysm without rupture 06/29/2012 06/30/2017 Overview: -MRI/MRA chest which revealed a slight interval increase in the size of the aneurysmal aortic root now measuring 5.2 cm (previously measuring 4.9 cm). No evidence of dissection. -HD stable, SBP: 111-131 Plan: -BP control -F/u CTS recs to confirm no intervention necessary -If no intervention necessary, likely d/c home soon given that there is no dissection Hyponatremia 12/12/2009 12/16/2009 Overview: Sodium WNL with aggressive diuresis. Was Likely dilutional etiology. Cont & taper diuretic. / Nonspecific T wave inversion. 12/12/2009 Overview: Patient's EKG notable for T wave inversion in leads II, III, aVf a well as the anterior leads upon admission to [facility] 12/12 which was a change from baseline EKG 12/09. Patient denies CP and other subjective complaints/changes. Cardiac enzymes sent -CK & MB elevated & troponin near baseline. Will cont to check serial Ambrose. D/W Dr. Arce - no other intevention at this time. / Leucocytosis 12/11/2009 12/12/2009 Overview: 12/11 - Afebrile. Conitnue daily monitoring Acute renal insufficiency 12/11/20092009 Overview: Post-op pre-renal bump in Cr to 1.47 12/11. Has since trended down with less aggressive diuresis. Cont with currect diuretic regimen as patient is fluid/volume overloaded. / Acute blood loss anemia 12/11/2009 07/02/19 13 Overview: H/H remains stable today, 12/17. Demonstrated inc CT output 12/11 & was given protamine. Subsequently had drop in H/H to 6.6/19.1 & was transfused 1U PRBC on 12/12 & 2U PRBC 12/13. CT shows small loculated pericardial effuision - confirmed with TTE. Hematology following for factor VIII replacement Rx. / Acute Pulmonary Edema/Fluid overload. 12/11/2009 07/02/2012 Overview: Weight remains below pre-op. Cont PEP/C&DB/OOB/Ambulate. 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 He will subsequently receive 7,364 units (6,750 units +/- 10%) q 12 hours. Check a factor 8 assay level s/p 3 doses ( 12/10 at 1700) Given at 07:25 AM today. Primary service would like to transfuse 2 units FFP in the unit 12/10: Factor VIII assay on 12/10 normal.PTT high,PT normal.CT output minimal.await hematology regarding factor VIII therapy. Preop testing 12/02/2009 12/10/2009 Overview: Blank means still needed; x means completed; NA means not applicable Surgeon: _BWL___ Surgeon Visit: _X_ Informed Consent Completed: _X__ STS Score: unsupp CAD Yes/No __no__ Is intended procedure an Isolated CABG yes/no ___no___ If yes, is a beta jimmy ordered preop If no, why H & P: __x__ PA/LAT __x__ CXR: _x___ EKG: _x___ CT __x__ MRI ____ LE US ____ LHC: __NA___ Reviewed, yes or no _NA__ RHC _NA____ Echo: __x__ EF %: _55_ Labs:CBC x____ CMP __x__Creatinine __x__ PT/PTT __x__ INR ___x_ UA __x___ SA Swab __x___ Last Dose of Plavix PI's (R)____ (L) Carotid: __x__ Mapping: ____ Dental: __x__ PFT's: Op Note: ____ Pacemaker Check: ABO/ABO Confirmed/Blood ordered: __x___ Consults: DM: Cardiac Surgical prep: Congenital factor VIII disorder 09/02/2009 07/02/2017 Overview: PMHx: Hemophilia, 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 At home on 6400U Recombinate. Patient has been following with Dr. Lyons Plan: -Hematology consult - Continue Recombinate as scheduled -Monitor PT/PTT -IPCs documented as of this encounter (statuses as of 01/08/2022) [facility] History of Past illness Narrative* Problem Noted Date Resolved Date Cerebrovascular accident (CV A) due to embolism of left carotid artery 01/18/2019 01/03/2021 Recurrent major depression in partial remission 01/18/2019 01/03/2021 Expressive aphasia 07/01/2017 01/03/2021 Overview: Following Left frontal region of MCA: resultant expressive aphasia. Last Assessment & Plan: Moderate aphasia -Continue speech exercises Lung nodule 09/28/2015 05/28/2020 Overview: Assessment: Cardiac chest CT scan 09/10/2015 reported Stable 5 mm calcified nodule right upper lobe. Based on current guidelines*, a repeat follow-up unenhanced low-dose CT can be obtained in 12 months at clinical discretion. Plan: Pt is aware, follow up w/ local MD. Tooth decay 09/26/2015 05/28/2020 Overview: History: Preop dental evaluation revealed gross decay and chronic abscess of tooth #2 Assessment: Dental recommended extraction of tooth #2. Plan: After clearance from ID, CTS, Hematology, pt underwent extraction #2 on 09/27/15. Continue amicar x 1 more dose today per Hematology. Seizure 09/26/2015 05/28/2020 Overview: History: H/o seizures, on keppra preop Assessment: 09/20/15 post op seizure in ICU. No further events Plan: Continue keppra. Follow up w/ Neurology after discharge. Last Assessment & Plan: Post stroke epilepsy -Continue Keppra 750mg twice daily -Medication compliance encouraged Atelectasis 09/20/2015 05/28/2020 Overview: History: CXR 09/26: Small pleural effusions have near completely resolved. Improvement of by basilar atelectatic changes .No pneumothorax Assessment: Wt is well below preop, on room air Plan: Encourage ambulation, C&DB, PEP. Stop lasix. Stress hyperglycemia 09/20/2015 09/23/2015 Overview: No h/o DM A/P: SSI. Hypovolemia 09/19/2015 09/24/2015 Overview: Post-op fluid shifts A/P: IVF resuscitation as needed. Essential hypertension 09/19/2015 Overview: History: no meds pre-op Assessment: SBP controlled Plan: continue metoprolol (changed to toprol XL), lisinopril. Follow up locally Last Assessment & Plan: Follow up with PCP Refill for Metoprolol provided Well controlled today. Severe aortic regurgitation 09/09/201512/22 Overview: History: 4+ AR Assessment: 09/19/2015 Reop: AVR #27 CE, Ascending aortic root replacement with composite graft including #32 gelweave graft Surgical Pathology: A. Aortic valve, excision - Bicuspid aortic valve with severe calcification and severe fibrosis (gross diagnosis only). B. Ascending aorta and Hemashield graft, excision - Chronic dissection. Plan: ASA daily. Postop echo 09/24/15: - No AR. The peak gradient is 22 mmHg, the mean gradient is 14 mmHg - EF = 35 5% - The right ventricle is normal in size. Right ventricular systolic function is normal. Post-op pain 09/09/2015 05/28/2020 Overview: History: Pre-op h/o back pain treated w/ oxycodone 20mg q 6hrs prn and MS contin 30mg tid. MRI 09/08 no evidence of discitis or osteomyelitis. Assessment: Verbalizes adequate pain relief on preop regimen. Plan: Continue Tylenol, lidoderm, and preop regimen of Oxycodone 20mg q 6hrs prn and MS Contin 30mg tid Preop testing 01/30/2015 09/23/2015 Overview: Images from the original note were not included. [facility] PRE[facility] Surgeon: Emmanuel Wang M.D. Informed Consent Completed: No STS Score: AV Replacement Risk of Mortality: 2.61% Morbidity or Mortality: 29.84% Long Length of Stay: 16.325% Short Length of Stay: 15.915% Permanent Stroke: 2.899% Prolonged Ventilation: 22.329% DSW Infection: 0.168% Renal Failure: 5.656% Reoperation: 12.001% CAD: No Is intended procedure a CABG: No - is a beta jimmy ordered? No - reason: no documented CAD H & P completed: Yes PA/LAT: will need prior to surg CT: completed MRI:brain Completed LE US: N/A Cath: No Echo:Completed EKG: Completed EF %: 54% PI's: N/A Carotid: MRA of carotid: Completed Mapping: N/A Dental: Completed s/p extractions 12/2014 PFT's: N/A Recent Labs 01/30/15 0026 WBC 4.72 HB 9.9* HCT 30.4* PLT 185 INR 1.0 CREAT 0.75 UA: Normal HCG:N/A ABO/ABO Confirmed: Yes Blood ordered: Yes SA Swab: Yes - results: Negative Last Dose of Anticoagulation: heparin Op Note: Yes for surgery on 2009 Pacemaker Check: N/A Consults: ID, hematology DM: No Cardiac Surgical prep: Yes SIGNATURE: Ginette Luna CNP DATE of SERVICE: 01/30/2015 TIME of SERVICE: 4:19 PM Teri Gates CNP February 08, 2015 2:20 PM Pain 01/29/2015 05/28/2020 Overview: ,date--> increased narc dose for more optimal pain management. Endocarditis 01/29/2015 07/02/2017 Overview: History: January 29, 2015--> TTE completed--> continued changes c/w endocarditis on bicuspid aortic valve, similar to that seen on SABRA completed on 01/03/15. 01/30 cultures remain negative Assessment: WBC's WNL, afebrile Plan: Per ID: continue doxycline 100 mg po for possible Bartonella will review pathology of explanted valve with Dr Serrano when ready sequencing for Bartonella pending Stroke (cerebrum) 01/27/2015 01/03/2021 Overview: January 28, 2015--> likely cardioembolic. Following cardiology recs re: echo technque required for otpimal medcial dec. making wrt management/storke prevention. 01/30 as above January 31, 2015--> spoke to CTS staff who resuested a ntoe from stroke about recommended timing on Valve repalcement surgery, given his recent infarct. Also requested c/s from Hematology re: periop/intraop management of his primary coagulopathy. He also indicated that Mr. Harrington will need to undergo a SABRA and conv angio just prior to surgery, but alba snot need either study at this time. 07/29/17 Followed with [facility] -[facility] Last Assessment & Plan: Secondary to I.E -Symptoms stable -Continue speech exercises Seizure 01/27/2015 09/23/2015 Overview: AEDs: fosPHT and keppra January 28, 2015--> remains seizure free on PHTN and keppar. PHTN level 1.4 yday. continuing serial PHTN levels to confirm optimal. January 29, 2015--> switchiing to oral keppra. Fospheny stopped -continue on Keppra. DVT prophylaxis 01/02/2015 01/03/2021 Overview: Ambulatory SCDS No chemoprophylactic due to hemorrhage Congenital bicuspid aortic valve 01/02/2015 05/28/2020 Overview: Monitor: pt will follow outpatient. Infective endocarditis of aortic valve 5 01/03/2021 Overview: History: Large vegetation on the [place] bicuspid aortic valve. 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 Was initially being medically managed w/ ceftriaxone/doxycline due to high surgical risk: redo status, hemophilia, spontaneous intracranial bleeds. Assessment: 09/19/2015 Reop: AVR #27 CE, Ascending aortic root replacement with composite graft including #32 Per ID note: Difficult to know exactly what the echodensities represent. His history does not robustly support a diagnosis of IE and GN may also be associated with Bartonella IE. He has been treated appropriately with antibiotics for Bartonella. Plan: Per ID recommendations: -continue oral 100 mg po for possible Bartonella -will review pathology of explanted valve with Dr Park today but report no evidence for IE -sequencing for Bartonella pending ( will plan on oral doxcycline until l results back) -no need for CoPAT Spoke to ID: ID will follow up on OR results, ok to discharge pt on doxycycline 100mg q 12 hrs Elevated blood pressure (not hypertension) 12/3105/28/2020 Overview: sBP < 140 sBP 110-130 Continue to monitor МАРИНА (acute kidney injury) 07/24/20142020 Overview: Creat 2.11 Nephrology recs appreciated Na 137 ICH (intracerebral hemorrhage) 07/17/2014 0 05/28/2020 Overview: History: R occipital ICH/IVH 07/17/14 s/p R temporal crani for evacuation. R frontal ICH/IVH 12/2014 s/p R frontal crani and hematoma evacuation; Cerebral angiogram was negative for aneurysm or AVM - Embolic L MCA (M1) territory stroke in 01/2015 Assessment: AXOx3, mild aphasia, right hemianopsia Plan: speech and OT consult Last Assessment & Plan: R occipital ICH/IVH 07/17/14 s/p R temporal crani for evacuation. R frontal ICH/IVH 12/2014 s/p R frontal crani and hematoma evacuation -Cerebral angiogram was negative for aneurysm or AVM -Symptoms are stable Acute respiratory failure 07/17/20142014 Overview: Patient intubated for surgery. 07/18 extubated post surgery. Chronic pain disorder 07/02/2012 07/02/2012 Overview: L arm pain, on percocet at home No with some distal L arm pain in distal radial distribution Plan: -Percolone q3, ?transition to long acting -Colace Aortic aneurysm without rupture 06/29/2012 06/30/2017 Overview: -MRI/MRA chest which revealed a slight interval increase in the size of the aneurysmal aortic root now measuring 5.2 cm (previously measuring 4.9 cm). No evidence of dissection. -HD stable, SBP: 111-131 Plan: -BP control -F/u CTS recs to confirm no intervention necessary -If no intervention necessary, likely d/c home soon given that there is no dissection Hyponatremia 12/12/2009 12/16/2009 Overview: Sodium WNL with aggressive diuresis. Was Likely dilutional etiology. Cont & taper diuretic. / Nonspecific T wave inversion. 12/12/2009 Overview: Patient's EKG notable for T wave inversion in leads II, III, aVf a well as the anterior leads upon admission to [facility] 12/12 which was a change from baseline EKG 12/09. Patient denies CP and other subjective complaints/changes. Cardiac enzymes sent -CK & MB elevated & troponin near baseline. Will cont to check serial Ambrose. D/W Dr. Arce - no other intevention at this time. / Leucocytosis 12/11/2009 12/12/2009 Overview: 12/11 - Afebrile. Conitnue daily monitoring Acute renal insufficiency 12/11/20092009 Overview: Post-op pre-renal bump in Cr to 1.47 12/11. Has since trended down with less aggressive diuresis. Cont with currect diuretic regimen as patient is fluid/volume overloaded. / Acute blood loss anemia 12/11/2009 07/02/19 13 Overview: H/H remains stable today, 12/17. Demonstrated inc CT output 12/11 & was given protamine. Subsequently had drop in H/H to 6.6/.1 & was transfused 1U PRBC on 12/12 & 2U PRBC 12/13. CT shows small loculated pericardial effuision - confirmed with TTE. Hematology following for factor VIII replacement Rx. / Acute Pulmonary Edema/Fluid overload. 12/11/2009 07/02/2012 Overview: Weight remains below pre-op. Cont PEP/C&DB/OOB/Ambulate. 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 He will subsequently receive 7,364 units (6,750 units +/- 10%) q 12 hours. Check a factor 8 assay level s/p 3 doses ( 12/10 at 1700) Given at 07:25 AM today. Primary service would like to transfuse 2 units FFP in the unit 12/10 -: Factor VIII assay on 12/10 normal.PTT high,PT normal.CT output minimal.await hematology regarding factor VIII therapy. Preop testing 12/02/2009 12/10/2009 Overview: Blank means still needed; x means completed; NA means not applicable Surgeon: _BWL___ Surgeon Visit: _X_ Informed Consent Completed: _X__ STS Score: unsupp CAD Yes/No __no__ Is intended procedure an Isolated CABG yes/no ___no___ If yes, is a beta jimmy ordered preop If no, why H & P: __x__ PA/LAT __x__ CXR: _x___ EKG: _x___ CT __x__ MRI ____ LE US ____ LHC: __NA___ Reviewed, yes or no _NA__ RHC _NA____ Echo: __x__ EF %: _55_ Labs:CBC x____ CMP __x__Creatinine __x__ PT/PTT __x__ INR ___x_ UA __x___ SA Swab __x___ Last Dose of Plavix PI's (R)____ (L) Carotid: __x__ Mapping: ____ Dental: __x__ PFT's: Op Note: ____ Pacemaker Check: ABO/ABO Confirmed/Blood ordered: __x___ Consults: DM: Cardiac Surgical prep: Congenital factor VIII disorder 09/02/2009 07/02/2017 Overview: PMHx: Hemophilia, 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 At home on 6400U Recombinate. Patient has been following with Dr. Lyons Plan: -Hematology consult - Continue Recombinate as scheduled -Monitor PT/PTT -IPCs documented as of this encounter (statuses as of 01/14/2022) [facility] History of Past illness Narrative* Problem Noted Date Resolved Date Cerebrovascular accident (CV A) due to embolism of left carotid artery 01/18/2019 01/03/2021 Recurrent major depression in partial remission 01/18/2019 01/03/2021 Expressive aphasia 07/01/2017 01/03/2021 Overview: Following Left frontal region of MCA: resultant expressive aphasia. Last Assessment & Plan: Moderate aphasia -Continue speech exercises Lung nodule 09/28/2015 05/28/2020 Overview: Assessment: Cardiac chest CT scan 09/10/2015 reported Stable 5 mm calcified nodule right upper lobe. Based on current guidelines*, a repeat follow-up unenhanced low-dose CT can be obtained in 12 months at clinical discretion. Plan: Pt is aware, follow up w/ local MD. Tooth decay 09/26/2015 05/28/2020 Overview: History: Preop dental evaluation revealed gross decay and chronic abscess of tooth #2 Assessment: Dental recommended extraction of tooth #2. Plan: After clearance from ID, CTS, Hematology, pt underwent extraction #2 on 09/27/15. Continue amicar x 1 more dose today per Hematology. Seizure 09/26/2015 05/28/2020 Overview: History: H/o seizures, on keppra preop Assessment: 09/20/15 post op seizure in ICU. No further events Plan: Continue keppra. Follow up w/ Neurology after discharge. Last Assessment & Plan: Post stroke epilepsy -Continue Keppra 750mg twice daily -Medication compliance encouraged Atelectasis 09/20/2015 05/28/2020 Overview: History: CXR 09/26: Small pleural effusions have near completely resolved. Improvement of by basilar atelectatic changes .No pneumothorax Assessment: Wt is well below preop, on room air Plan: Encourage ambulation, C&DB, PEP. Stop lasix. Stress hyperglycemia 09/20/2015 09/23/2015 Overview: No h/o DM A/P: SSI. Hypovolemia 09/19/2015 09/24/2015 Overview: Post-op fluid shifts A/P: IVF resuscitation as needed. Essential hypertension 09/19/2015 Overview: History: no meds pre-op Assessment: SBP controlled Plan: continue metoprolol (changed to toprol XL), lisinopril. Follow up locally Last Assessment & Plan: Follow up with PCP Refill for Metoprolol provided Well controlled today. Severe aortic regurgitation 09/09/201512/22 Overview: History: 4+ AR Assessment: 09/19/2015 Reop: AVR #27 CE, Ascending aortic root replacement with composite graft including #32 gelweave graft Surgical Pathology: A. Aortic valve, excision - Bicuspid aortic valve with severe calcification and severe fibrosis (gross diagnosis only). B. Ascending aorta and Hemashield graft, excision - Chronic dissection. Plan: ASA daily. Postop echo 09/24/15: - No AR. The peak gradient is 22 mmHg, the mean gradient is 14 mmHg - EF = 35 5% - The right ventricle is normal in size. Right ventricular systolic function is normal. Post-op pain 09/09/2015 05/28/2020 Overview: History: Pre-op h/o back pain treated w/ oxycodone 20mg q 6hrs prn and MS contin 30mg tid. MRI 09/08 no evidence of discitis or osteomyelitis. Assessment: Verbalizes adequate pain relief on preop regimen. Plan: Continue Tylenol, lidoderm, and preop regimen of Oxycodone 20mg q 6hrs prn and MS Contin 30mg tid Preop testing 01/30/2015 09/23/2015 Overview: Images from the original note were not included. [facility] PRE[facility] Surgeon: Emmanuel Wang M.D. Informed Consent Completed: No STS Score: AV Replacement Risk of Mortality: 2.61% Morbidity or Mortality: 29.84% Long Length of Stay: 16.325% Short Length of Stay: 15.915% Permanent Stroke: 2.899% Prolonged Ventilation: 22.329% DSW Infection: 0.168% Renal Failure: 5.656% Reoperation: 12.001% CAD: No Is intended procedure a CABG: No - is a beta jimmy ordered? No - reason: no documented CAD H & P completed: Yes PA/LAT: will need prior to surg CT: completed MRI:brain Completed LE US: N/A Cath: No Echo:Completed EKG: Completed EF %: 54% PI's: N/A Carotid: MRA of carotid: Completed Mapping: N/A Dental: Completed s/p extractions 12/2014 PFT's: N/A Recent Labs 01/30/15 0026 WBC 4.72 HB 9.9* HCT 30.4* PLT 185 INR 1.0 CREAT 0.75 UA: Normal HCG:N/A ABO/ABO Confirmed: Yes Blood ordered: Yes SA Swab: Yes - results: Negative Last Dose of Anticoagulation: heparin Op Note: Yes for surgery on 2009 Pacemaker Check: N/A Consults: ID, hematology DM: No Cardiac Surgical prep: Yes SIGNATURE: Ginette Luna CNP DATE of SERVICE: 01/30/2015 TIME of SERVICE: 4:19 PM Teri Gates CNP February 08, 2015 2:20 PM Pain 01/29/2015 05/28/2020 Overview: ,date--> increased narc dose for more optimal pain management. Endocarditis 01/29/2015 07/02/2017 Overview: History: January 29, 2015--> TTE completed--> continued changes c/w endocarditis on bicuspid aortic valve, similar to that seen on SABRA completed on 01/03/15. 01/30 cultures remain negative Assessment: WBC's WNL, afebrile Plan: Per ID: continue doxycline 100 mg po for possible Bartonella will review pathology of explanted valve with Dr Serrano when ready sequencing for Bartonella pending Stroke (cerebrum) 01/27/2015 01/03/2021 Overview: January 28, 2015--> likely cardioembolic. Following cardiology recs re: echo technque required for otpimal medcial dec. making wrt management/storke prevention. 01/30 as above January 31, 2015--> spoke to CTS staff who resuested a ntoe from stroke about recommended timing on Valve repalcement surgery, given his recent infarct. Also requested c/s from Hematology re: periop/intraop management of his primary coagulopathy. He also indicated that Mr. Harrington will need to undergo a SABRA and conv angio just prior to surgery, but alba snot need either study at this time. 07/29/17 Followed with [facility] Last Assessment & Plan: Secondary to I.E -Symptoms stable -Continue speech exercises Seizure 01/27/2015 09/23/2015 Overview: AEDs: fosPHT and keppra January 28, 2015--> remains seizure free on PHTN and keppar. PHTN level 1.4 yday. continuing serial PHTN levels to confirm optimal. January 29, 2015--> switchiing to oral keppra. Fospheny stopped -continue on Keppra. DVT prophylaxis 01/02/2015 01/03/2021 Overview: Ambulatory SCDS No chemoprophylactic due to hemorrhage Congenital bicuspid aortic valve 01/02/2015 05/28/2020 Overview: Monitor: pt will follow outpatient. Infective endocarditis of aortic valve 5 01/03/2021 Overview: History: Large vegetation on the [place] bicuspid aortic valve. 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 Was initially being medically managed w/ ceftriaxone/doxycline due to high surgical risk: redo status, hemophilia, spontaneous intracranial bleeds. Assessment: 09/19/2015 Reop: AVR #27 CE, Ascending aortic root replacement with composite graft including #32 Per ID note: Difficult to know exactly what the echodensities represent. His history does not robustly support a diagnosis of IE and GN may also be associated with Bartonella IE. He has been treated appropriately with antibiotics for Bartonella. Plan: Per ID recommendations: -continue oral 100 mg po for possible Bartonella -will review pathology of explanted valve with Dr Park today but report no evidence for IE -sequencing for Bartonella pending ( will plan on oral doxcycline until l results back) -no need for CoPAT Spoke to ID: ID will follow up on OR results, ok to discharge pt on doxycycline 100mg q 12 hrs Elevated blood pressure (not hypertension) 12/3105/28/2020 Overview: sBP < 140 sBP 110-130 Continue to monitor МАРИНА (acute kidney injury) 07/24/20142020 Overview: Creat 2.11 Nephrology recs appreciated Na 137 ICH (intracerebral hemorrhage) 07/17/2014 0 05/28/2020 Overview: History: R occipital ICH/IVH 07/17/14 s/p R temporal crani for evacuation. R frontal ICH/IVH 12/2014 s/p R frontal crani and hematoma evacuation; Cerebral angiogram was negative for aneurysm or AVM - Embolic L MCA (M1) territory stroke in 01/2015 Assessment: AXOx3, mild aphasia, right hemianopsia Plan: speech and OT consult Last Assessment & Plan: R occipital ICH/IVH 07/17/14 s/p R temporal crani for evacuation. R frontal ICH/IVH 12/2014 s/p R frontal crani and hematoma evacuation -Cerebral angiogram was negative for aneurysm or AVM -Symptoms are stable Acute respiratory failure 07/17/20142014 Overview: Patient intubated for surgery. 07/18 extubated post surgery. Chronic pain disorder 07/02/2012 07/02/2012 Overview: L arm pain, on percocet at home No with some distal L arm pain in distal radial distribution Plan: -Percolone q3, ?transition to long acting -Colace Aortic aneurysm without rupture 06/29/2012 06/30/2017 Overview: -MRI/MRA chest which revealed a slight interval increase in the size of the aneurysmal aortic root now measuring 5.2 cm (previously measuring 4.9 cm). No evidence of dissection. -HD stable, SBP: 111-131 Plan: -BP control -F/u CTS recs to confirm no intervention necessary -If no intervention necessary, likely d/c home soon given that there is no dissection Hyponatremia 12/12/2009 12/16/2009 Overview: Sodium WNL with aggressive diuresis. Was Likely dilutional etiology. Cont & taper diuretic. / Nonspecific T wave inversion. 12/12/2009 Overview: Patient's EKG notable for T wave inversion in leads II, III, aVf a well as the anterior leads upon admission to [facility] 12/12 which was a change from baseline EKG 12/09. Patient denies CP and other subjective complaints/changes. Cardiac enzymes sent -CK & MB elevated & troponin near baseline. Will cont to check serial Ambrose. D/W Dr. Arce - no other intevention at this time. / Leucocytosis 12/11/2009 12/12/2009 Overview: 12/11 - Afebrile. Conitnue daily monitoring Acute renal insufficiency 12/11/20092009 Overview: Post-op pre-renal bump in Cr to 1.47 12/11. Has since trended down with less aggressive diuresis. Cont with currect diuretic regimen as patient is fluid/volume overloaded. / Acute blood loss anemia 12/11/2009 07/02/19 13 Overview: H/H remains stable today, 12/17. Demonstrated inc CT output 12/11 & was given protamine. Subsequently had drop in H/H to 6.6/19.1 & was transfused 1U PRBC on 12/12 & 2U PRBC 12/13. CT shows small loculated pericardial effuision - confirmed with TTE. Hematology following for factor VIII replacement Rx. / Acute Pulmonary Edema/Fluid overload. 12/11/2009 07/02/2012 Overview: Weight remains below pre-op. Cont PEP/C&DB/OOB/Ambulate. 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 He will subsequently receive 7,364 units (6,750 units +/- 10%) q 12 hours. Check a factor 8 assay level s/p 3 doses ( 12/10 at 1700) Given at 07:25 AM today. Primary service would like to transfuse 2 units FFP in the unit 12/10 -: Factor VIII assay on 12/10 normal.PTT high,PT normal.CT output minimal.await hematology regarding factor VIII therapy. Preop testing 12/02/2009 12/10/2009 Overview: Blank means still needed; x means completed; NA means not applicable Surgeon: _BWL___ Surgeon Visit: _X_ Informed Consent Completed: _X__ STS Score: unsupp CAD Yes/No __no__ Is intended procedure an Isolated CABG yes/no ___no___ If yes, is a beta jimmy ordered preop If no, why H & P: __x__ PA/LAT __x__ CXR: _x___ EKG: _x___ CT __x__ MRI ____ LE US ____ LHC: __NA___ Reviewed, yes or no _NA__ RHC _NA____ Echo: __x__ EF %: _55_ Labs:CBC x____ CMP __x__Creatinine __x__ PT/PTT __x__ INR ___x_ UA __x___ SA Swab __x___ Last Dose of Plavix PI's (R)____ (L) Carotid: __x__ Mapping: ____ Dental: __x__ PFT's: Op Note: ____ Pacemaker Check: ABO/ABO Confirmed/Blood ordered: __x___ Consults: DM: Cardiac Surgical prep: Congenital factor VIII disorder 09/02/2009 07/02/2017 Overview: PMHx: Hemophilia, 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 At home on 6400U Recombinate. Patient has been following with Dr. Lyons Plan: -Hematology consult - Continue Recombinate as scheduled -Monitor PT/PTT -IPCs documented as of this encounter (statuses as of 01/15/2022) [facility] History of Past illness Narrative* Problem Noted Date Resolved Date Cerebrovascular accident (CV A) due to embolism of left carotid artery 01/18/2019 01/03/2021 Recurrent major depression in partial remission 01/18/2019 01/03/2021 Expressive aphasia 07/01/2017 01/03/2021 Overview: Following Left frontal region of MCA: resultant expressive aphasia. Last Assessment & Plan: Moderate aphasia -Continue speech exercises Lung nodule 09/28/2015 05/28/2020 Overview: Assessment: Cardiac chest CT scan 09/10/2015 reported Stable 5 mm calcified nodule right upper lobe. Based on current guidelines*, a repeat follow-up unenhanced low-dose CT can be obtained in 12 months at clinical discretion. Plan: Pt is aware, follow up w/ local MD. Tooth decay 09/26/2015 05/28/2020 Overview: History: Preop dental evaluation revealed gross decay and chronic abscess of tooth #2 Assessment: Dental recommended extraction of tooth #2. Plan: After clearance from ID, CTS, Hematology, pt underwent extraction #2 on 09/27/15. Continue amicar x 1 more dose today per Hematology. Seizure 09/26/2015 05/28/2020 Overview: History: H/o seizures, on keppra preop Assessment: 09/20/15 post op seizure in ICU. No further events Plan: Continue keppra. Follow up w/ Neurology after discharge. Last Assessment & Plan: Post stroke epilepsy -Continue Keppra 750mg twice daily -Medication compliance encouraged Atelectasis 09/20/2015 05/28/2020 Overview: History: CXR 09/26: Small pleural effusions have near completely resolved. Improvement of by basilar atelectatic changes .No pneumothorax Assessment: Wt is well below preop, on room air Plan: Encourage ambulation, C&DB, PEP. Stop lasix. Stress hyperglycemia 09/20/2015 09/23/2015 Overview: No h/o DM A/P: SSI. Hypovolemia 09/19/2015 09/24/2015 Overview: Post-op fluid shifts A/P: IVF resuscitation as needed. Essential hypertension 09/19/2015 Overview: History: no meds pre-op Assessment: SBP controlled Plan: continue metoprolol (changed to toprol XL), lisinopril. Follow up locally Last Assessment & Plan: Follow up with PCP Refill for Metoprolol provided Well controlled today. Severe aortic regurgitation 09/09/201512/22 Overview: History: 4+ AR Assessment: 09/19/2015 Reop: AVR #27 CE, Ascending aortic root replacement with composite graft including #32 gelweave graft Surgical Pathology: A. Aortic valve, excision - Bicuspid aortic valve with severe calcification and severe fibrosis (gross diagnosis only). B. Ascending aorta and Hemashield graft, excision - Chronic dissection. Plan: ASA daily. Postop echo 09/24/15: - No AR. The peak gradient is 22 mmHg, the mean gradient is 14 mmHg - EF = 35 5% - The right ventricle is normal in size. Right ventricular systolic function is normal. Post-op pain 09/09/2015 05/28/2020 Overview: History: Pre-op h/o back pain treated w/ oxycodone 20mg q 6hrs prn and MS contin 30mg tid. MRI 09/08 no evidence of discitis or osteomyelitis. Assessment: Verbalizes adequate pain relief on preop regimen. Plan: Continue Tylenol, lidoderm, and preop regimen of Oxycodone 20mg q 6hrs prn and MS Contin 30mg tid Preop testing 01/30/2015 09/23/2015 Overview: Images from the original note were not included. [facility] PRE-[facility] Surgeon: Emmanuel Wang M.D. Informed Consent Completed: No STS Score: AV Replacement Risk of Mortality: 2.61% Morbidity or Mortality: 29.84% Long Length of Stay: 16.325% Short Length of Stay: 15.915% Permanent Stroke: 2.899% Prolonged Ventilation: 22.329% DSW Infection: 0.168% Renal Failure: 5.656% Reoperation: 12.001% CAD: No Is intended procedure a CABG: No - is a beta jimmy ordered? No - reason: no documented CAD H & P completed: Yes PA/LAT: will need prior to surg CT: completed MRI:brain Completed LE US: N/A Cath: No Echo:Completed EKG: Completed EF %: 54% PI's: N/A Carotid: MRA of carotid: Completed Mapping: N/A Dental: Completed s/p extractions 12/2014 PFT's: N/A Recent Labs 01/30/15 0026 WBC 4.72 HB 9.9* HCT 30.4* PLT 185 INR 1.0 CREAT 0.75 UA: Normal HCG:N/A ABO/ABO Confirmed: Yes Blood ordered: Yes SA Swab: Yes - results: Negative Last Dose of Anticoagulation: heparin Op Note: Yes for surgery on 2009 Pacemaker Check: N/A Consults: ID, hematology DM: No Cardiac Surgical prep: Yes SIGNATURE: Ginette Luna CNP DATE of SERVICE: 01/30/2015 TIME of SERVICE: 4:19 PM Teri Gates CNP February 08, 2015 2:20 PM Pain 01/29/2015 05/28/2020 Overview: ,date--> increased narc dose for more optimal pain management. Endocarditis 01/29/2015 07/02/2017 Overview: History: January 29, 2015--> TTE completed--> continued changes c/w endocarditis on bicuspid aortic valve, similar to that seen on SABRA completed on 01/03/15. 01/30 cultures remain negative Assessment: WBC's WNL, afebrile Plan: Per ID: continue doxycline 100 mg po for possible Bartonella will review pathology of explanted valve with Dr Serrano when ready sequencing for Bartonella pending Stroke (cerebrum) 01/27/2015 01/03/2021 Overview: January 28, 2015--> likely cardioembolic. Following cardiology recs re: echo technque required for otpimal medcial dec. making wrt management/storke prevention. 01/30 as above January 31, 2015--> spoke to CTS staff who resuested a ntoe from stroke about recommended timing on Valve repalcement surgery, given his recent infarct. Also requested c/s from Hematology re: periop/intraop management of his primary coagulopathy. He also indicated that Mr. Harrington will need to undergo a SABRA and conv angio just prior to surgery, but alba snot need either study at this time. 07/29/17 Followed with [facility] Last Assessment & Plan: Secondary to I.E -Symptoms stable -Continue speech exercises Seizure 01/27/2015 09/23/2015 Overview: AEDs: fosPHT and keppra January 28, 2015--> remains seizure free on PHTN and keppar. PHTN level 1.4 yday. continuing serial PHTN levels to confirm optimal. January 29, 2015--> switchiing to oral keppra. Fospheny stopped -continue on Keppra. DVT prophylaxis 01/02/2015 01/03/2021 Overview: Ambulatory SCDS No chemoprophylactic due to hemorrhage Congenital bicuspid aortic valve 01/02/2015 05/28/2020 Overview: Monitor: pt will follow outpatient. Infective endocarditis of aortic valve 5 01/03/2021 Overview: History: Large vegetation on the [place] bicuspid aortic valve. 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 Was initially being medically managed w/ ceftriaxone/doxycline due to high surgical risk: redo status, hemophilia, spontaneous intracranial bleeds. Assessment: 09/19/2015 Reop: AVR #27 CE, Ascending aortic root replacement with composite graft including #32 Per ID note: Difficult to know exactly what the echodensities represent. His history does not robustly support a diagnosis of IE and GN may also be associated with Bartonella IE. He has been treated appropriately with antibiotics for Bartonella. Plan: Per ID recommendations: -continue oral 100 mg po for possible Bartonella -will review pathology of explanted valve with Dr Park today but report no evidence for IE -sequencing for Bartonella pending ( will plan on oral doxcycline until l results back) -no need for CoPAT Spoke to ID: ID will follow up on OR results, ok to discharge pt on doxycycline 100mg q 12 hrs Elevated blood pressure (not hypertension) 12/3105/28/2020 Overview: sBP < 140 sBP 110-130 Continue to monitor МАРИНА (acute kidney injury) 07/24/20142020 Overview: Creat 2.11 Nephrology recs appreciated Na 137 ICH (intracerebral hemorrhage) 07/17/2014 0 05/28/2020 Overview: History: R occipital ICH/IVH 07/17/14 s/p R temporal crani for evacuation. R frontal ICH/IVH 12/2014 s/p R frontal crani and hematoma evacuation; Cerebral angiogram was negative for aneurysm or AVM - Embolic L MCA (M1) territory stroke in 01/2015 Assessment: AXOx3, mild aphasia, right hemianopsia Plan: speech and OT consult Last Assessment & Plan: R occipital ICH/IVH 07/17/14 s/p R temporal crani for evacuation. R frontal ICH/IVH 12/2014 s/p R frontal crani and hematoma evacuation -Cerebral angiogram was negative for aneurysm or AVM -Symptoms are stable Acute respiratory failure 07/17/20142014 Overview: Patient intubated for surgery. 07/18 extubated post surgery. Chronic pain disorder 07/02/2012 07/02/2012 Overview: L arm pain, on percocet at home No with some distal L arm pain in distal radial distribution Plan: -Percolone q3, ?transition to long acting -Colace Aortic aneurysm without rupture 06/29/2012 06/30/2017 Overview: -MRI/MRA chest which revealed a slight interval increase in the size of the aneurysmal aortic root now measuring 5.2 cm (previously measuring 4.9 cm). No evidence of dissection. -HD stable, SBP: 111-131 Plan: -BP control -F/u CTS recs to confirm no intervention necessary -If no intervention necessary, likely d/c home soon given that there is no dissection Hyponatremia 12/12/2009 12/16/2009 Overview: Sodium WNL with aggressive diuresis. Was Likely dilutional etiology. Cont & taper diuretic. / Nonspecific T wave inversion. 12/12/2009 Overview: Patient's EKG notable for T wave inversion in leads II, III, aVf a well as the anterior leads upon admission to [facility] 12/12 which was a change from baseline EKG 12/09. Patient denies CP and other subjective complaints/changes. Cardiac enzymes sent -CK & MB elevated & troponin near baseline. Will cont to check serial Ambrose. D/W Dr. Arce - no other intevention at this time. / Leucocytosis 12/11/2009 12/12/2009 Overview: 12/11 - Afebrile. Conitnue daily monitoring Acute renal insufficiency 12/11/20092009 Overview: Post-op pre-renal bump in Cr to 1.47 12/11. Has since trended down with less aggressive diuresis. Cont with currect diuretic regimen as patient is fluid/volume overloaded. / Acute blood loss anemia 12/11/2009 07/02/19 13 Overview: H/H remains stable today, 12/17. Demonstrated inc CT output 12/11 & was given protamine. Subsequently had drop in H/H to 6.6/19.1 & was transfused 1U PRBC on 12/12 & 2U PRBC 12/13. CT shows small loculated pericardial effuision - confirmed with TTE. Hematology following for factor VIII replacement Rx. / Acute Pulmonary Edema/Fluid overload. 12/11/2009 07/02/2012 Overview: Weight remains below pre-op. Cont PEP/C&DB/OOB/Ambulate. 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 He will subsequently receive 7,364 units (6,750 units +/- 10%) q 12 hours. Check a factor 8 assay level s/p 3 doses ( 12/10 at 1700) Given at 07:25 AM today. Primary service would like to transfuse 2 units FFP in the unit 12/10: Factor VIII assay on 12/10 normal.PTT high,PT normal.CT output minimal.await hematology regarding factor VIII therapy. Preop testing 12/02/2009 12/10/2009 Overview: Blank means still needed; x means completed; NA means not applicable Surgeon: _BWL___ Surgeon Visit: _X_ Informed Consent Completed: _X__ STS Score: unsupp CAD Yes/No __no__ Is intended procedure an Isolated CABG yes/no ___no___ If yes, is a beta jimmy ordered preop If no, why H & P: __x__ PA/LAT __x__ CXR: _x___ EKG: _x___ CT __x__ MRI ____ LE US ____ LHC: __NA___ Reviewed, yes or no _NA__ RHC _NA____ Echo: __x__ EF %: _55_ Labs:CBC x____ CMP __x__Creatinine __x__ PT/PTT __x__ INR ___x_ UA __x___ SA Swab __x___ Last Dose of Plavix PI's (R)____ (L) Carotid: __x__ Mapping: ____ Dental: __x__ PFT's: Op Note: ____ Pacemaker Check: ABO/ABO Confirmed/Blood ordered: __x___ Consults: DM: Cardiac Surgical prep: Congenital factor VIII disorder 09/02/2009 07/02/2017 Overview: PMHx: Hemophilia, 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 At home on 6400U Recombinate. Patient has been following with Dr. Lyons Plan: -Hematology consult - Continue Recombinate as scheduled -Monitor PT/PTT -IPCs documented as of this encounter (statuses as of 01/28/2022) [facility] History of Past illness Narrative* Problem Noted Date Resolved Date Cerebrovascular accident (CV A) due to embolism of left carotid artery 01/18/2019 01/03/2021 Recurrent major depression in partial remission 01/18/2019 01/03/2021 Expressive aphasia 07/01/2017 01/03/2021 Overview: Following Left frontal region of MCA: resultant expressive aphasia. Last Assessment & Plan: Moderate aphasia -Continue speech exercises Lung nodule 09/28/2015 05/28/2020 Overview: Assessment: Cardiac chest CT scan 09/10/2015 reported Stable 5 mm calcified nodule right upper lobe. Based on current guidelines*, a repeat follow-up unenhanced low-dose CT can be obtained in 12 months at clinical discretion. Plan: Pt is aware, follow up w/ local MD. Tooth decay 09/26/2015 05/28/2020 Overview: History: Preop dental evaluation revealed gross decay and chronic abscess of tooth #2 Assessment: Dental recommended extraction of tooth #2. Plan: After clearance from ID, CTS, Hematology, pt underwent extraction #2 on 09/27/15. Continue amicar x 1 more dose today per Hematology. Seizure 09/26/2015 05/28/2020 Overview: History: H/o seizures, on keppra preop Assessment: 09/20/15 post op seizure in ICU. No further events Plan: Continue keppra. Follow up w/ Neurology after discharge. Last Assessment & Plan: Post stroke epilepsy -Continue Keppra 750mg twice daily -Medication compliance encouraged Atelectasis 09/20/2015 05/28/2020 Overview: History: CXR 09/26: Small pleural effusions have near completely resolved. Improvement of by basilar atelectatic changes .No pneumothorax Assessment: Wt is well below preop, on room air Plan: Encourage ambulation, C&DB, PEP. Stop lasix. Stress hyperglycemia 09/20/2015 09/23/2015 Overview: No h/o DM A/P: SSI. Hypovolemia 09/19/2015 09/24/2015 Overview: Post-op fluid shifts A/P: IVF resuscitation as needed. Essential hypertension 09/19/2015 Overview: History: no meds pre-op Assessment: SBP controlled Plan: continue metoprolol (changed to toprol XL), lisinopril. Follow up locally Last Assessment & Plan: Follow up with PCP Refill for Metoprolol provided Well controlled today. Severe aortic regurgitation 09/09/201512/22 Overview: History: 4+ AR Assessment: 09/19/2015 Reop: AVR #27 CE, Ascending aortic root replacement with composite graft including #32 gelweave graft Surgical Pathology: A. Aortic valve, excision - Bicuspid aortic valve with severe calcification and severe fibrosis (gross diagnosis only). B. Ascending aorta and Hemashield graft, excision - Chronic dissection. Plan: ASA daily. Postop echo 09/24/15: - No AR. The peak gradient is 22 mmHg, the mean gradient is 14 mmHg - EF = 35 5% - The right ventricle is normal in size. Right ventricular systolic function is normal. Post-op pain 09/09/2015 05/28/2020 Overview: History: Pre-op h/o back pain treated w/ oxycodone 20mg q 6hrs prn and MS contin 30mg tid. MRI 09/08 no evidence of discitis or osteomyelitis. Assessment: Verbalizes adequate pain relief on preop regimen. Plan: Continue Tylenol, lidoderm, and preop regimen of Oxycodone 20mg q 6hrs prn and MS Contin 30mg tid Preop testing 01/30/2015 09/23/2015 Overview: Images from the original note were not included. [facility] PRE[facility] Surgeon: Emmanuel Wang M.D. Informed Consent Completed: No STS Score: AV Replacement Risk of Mortality: 2.61% Morbidity or Mortality: 29.84% Long Length of Stay: 16.325% Short Length of Stay: 15.915% Permanent Stroke: 2.899% Prolonged Ventilation: 22.329% DSW Infection: 0.168% Renal Failure: 5.656% Reoperation: 12.001% CAD: No Is intended procedure a CABG: No - is a beta jimmy ordered? No - reason: no documented CAD H & P completed: Yes PA/LAT: will need prior to surg CT: completed MRI:brain Completed LE US: N/A Cath: No Echo:Completed EKG: Completed EF %: 54% PI's: N/A Carotid: MRA of carotid: Completed Mapping: N/A Dental: Completed s/p extractions 12/2014 PFT's: N/A Recent Labs 01/30/15 0026 WBC 4.72 HB 9.9* HCT 30.4* PLT 185 INR 1.0 CREAT 0.75 UA: Normal HCG:N/A ABO/ABO Confirmed: Yes Blood ordered: Yes SA Swab: Yes - results: Negative Last Dose of Anticoagulation: heparin Op Note: Yes for surgery on 2009 Pacemaker Check: N/A Consults: ID, hematology DM: No Cardiac Surgical prep: Yes SIGNATURE: Ginette Luna CNP DATE of SERVICE: 01/30/2015 TIME of SERVICE: 4:19 PM Teri Gates CNP February 08, 2015 2:20 PM Pain 01/29/2015 05/28/2020 Overview: ,date--> increased narc dose for more optimal pain management. Endocarditis 01/29/2015 07/02/2017 Overview: History: January 29, 2015--> TTE completed--> continued changes c/w endocarditis on bicuspid aortic valve, similar to that seen on SABRA completed on 01/03/15. 01/30 cultures remain negative Assessment: WBC's WNL, afebrile Plan: Per ID: continue doxycline 100 mg po for possible Bartonella will review pathology of explanted valve with Dr Serrano when ready sequencing for Bartonella pending Stroke (cerebrum) 01/27/2015 01/03/2021 Overview: January 28, 2015--> likely cardioembolic. Following cardiology recs re: echo technque required for otpimal medcial dec. making wrt management/storke prevention. 01/30 as above January 31, 2015--> spoke to CTS staff who resuested a ntoe from stroke about recommended timing on Valve repalcement surgery, given his recent infarct. Also requested c/s from Hematology re: periop/intraop management of his primary coagulopathy. He also indicated that Mr. Harrington will need to undergo a SABRA and conv angio just prior to surgery, but alba snot need either study at this time. 07/29/17 Followed with [facility] Last Assessment & Plan: Secondary to I.E -Symptoms stable -Continue speech exercises Seizure 01/27/2015 09/23/2015 Overview: AEDs: fosPHT and keppra January 28, 2015--> remains seizure free on PHTN and keppar. PHTN level 1.4 yday. continuing serial PHTN levels to confirm optimal. January 29, 2015--> switchiing to oral keppra. Fospheny stopped -continue on Keppra. DVT prophylaxis 01/02/2015 01/03/2021 Overview: Ambulatory SCDS No chemoprophylactic due to hemorrhage Congenital bicuspid aortic valve 01/02/2015 05/28/2020 Overview: Monitor: pt will follow outpatient. Infective endocarditis of aortic valve 5 01/03/2021 Overview: History: Large vegetation on the [place] bicuspid aortic valve. 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 Was initially being medically managed w/ ceftriaxone/doxycline due to high surgical risk: redo status, hemophilia, spontaneous intracranial bleeds. Assessment: 09/19/2015 Reop: AVR #27 CE, Ascending aortic root replacement with composite graft including #32 Per ID note: Difficult to know exactly what the echodensities represent. His history does not robustly support a diagnosis of IE and GN may also be associated with Bartonella IE. He has been treated appropriately with antibiotics for Bartonella. Plan: Per ID recommendations: -continue oral 100 mg po for possible Bartonella -will review pathology of explanted valve with Dr Park today but report no evidence for IE -sequencing for Bartonella pending ( will plan on oral doxcycline until l results back) -no need for CoPAT Spoke to ID: ID will follow up on OR results, ok to discharge pt on doxycycline 100mg q 12 hrs Elevated blood pressure (not hypertension) 12/3105/28/2020 Overview: sBP < 140 sBP 110-130 Continue to monitor МАРИНА (acute kidney injury) 07/24/20142020 Overview: Creat 2.11 Nephrology recs appreciated Na 137 ICH (intracerebral hemorrhage) 07/17/2014 0 05/28/2020 Overview: History: R occipital ICH/IVH 07/17/14 s/p R temporal crani for evacuation. R frontal ICH/IVH 12/2014 s/p R frontal crani and hematoma evacuation; Cerebral angiogram was negative for aneurysm or AVM - Embolic L MCA (M1) territory stroke in 01/2015 Assessment: AXOx3, mild aphasia, right hemianopsia Plan: speech and OT consult Last Assessment & Plan: R occipital ICH/IVH 07/17/14 s/p R temporal crani for evacuation. R frontal ICH/IVH 12/2014 s/p R frontal crani and hematoma evacuation -Cerebral angiogram was negative for aneurysm or AVM -Symptoms are stable Acute respiratory failure 07/17/20142014 Overview: Patient intubated for surgery. 07/18 extubated post surgery. Chronic pain disorder 07/02/2012 07/02/2012 Overview: L arm pain, on percocet at home No with some distal L arm pain in distal radial distribution Plan: -Percolone q3, ?transition to long acting -Colace Aortic aneurysm without rupture 06/29/2012 06/30/2017 Overview: -MRI/MRA chest which revealed a slight interval increase in the size of the aneurysmal aortic root now measuring 5.2 cm (previously measuring 4.9 cm). No evidence of dissection. -HD stable, SBP: 111-131 Plan: -BP control -F/u CTS recs to confirm no intervention necessary -If no intervention necessary, likely d/c home soon given that there is no dissection Hyponatremia 12/12/2009 12/16/2009 Overview: Sodium WNL with aggressive diuresis. Was Likely dilutional etiology. Cont & taper diuretic. / Nonspecific T wave inversion. 12/12/2009 Overview: Patient's EKG notable for T wave inversion in leads II, III, aVf a well as the anterior leads upon admission to [facility] 12/12 which was a change from baseline EKG 12/09. Patient denies CP and other subjective complaints/changes. Cardiac enzymes sent -CK & MB elevated & troponin near baseline. Will cont to check serial Ambrose. D/W Dr. Arce - no other intevention at this time. / Leucocytosis 12/11/2009 12/12/2009 Overview: 12/11 - Afebrile. Conitnue daily monitoring Acute renal insufficiency 12/11/20092009 Overview: Post-op pre-renal bump in Cr to 1.47 12/11. Has since trended down with less aggressive diuresis. Cont with currect diuretic regimen as patient is fluid/volume overloaded. / Acute blood loss anemia 12/11/2009 07/02/19 13 Overview: H/H remains stable today, 12/17. Demonstrated inc CT output 12/11 & was given protamine. Subsequently had drop in H/H to 6.6/.1 & was transfused 1U PRBC on 12/12 & 2U PRBC 12/13. CT shows small loculated pericardial effuision - confirmed with TTE. Hematology following for factor VIII replacement Rx. / Acute Pulmonary Edema/Fluid overload. 12/11/2009 07/02/2012 Overview: Weight remains below pre-op. Cont PEP/C&DB/OOB/Ambulate. 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 He will subsequently receive 7,364 units (6,750 units +/- 10%) q 12 hours. Check a factor 8 assay level s/p 3 doses ( 12/10 at 1700) Given at 07:25 AM today. Primary service would like to transfuse 2 units FFP in the unit 12/10 -: Factor VIII assay on 12/10 normal.PTT high,PT normal.CT output minimal.await hematology regarding factor VIII therapy. Preop testing 12/02/2009 12/10/2009 Overview: Blank means still needed; x means completed; NA means not applicable Surgeon: _BWL___ Surgeon Visit: _X_ Informed Consent Completed: _X__ STS Score: unsupp CAD Yes/No __no__ Is intended procedure an Isolated CABG yes/no ___no___ If yes, is a beta jimmy ordered preop If no, why H & P: __x__ PA/LAT __x__ CXR: _x___ EKG: _x___ CT __x__ MRI ____ LE US ____ LHC: __NA___ Reviewed, yes or no _NA__ RHC _NA____ Echo: __x__ EF %: _55_ Labs:CBC x____ CMP __x__Creatinine __x__ PT/PTT __x__ INR ___x_ UA __x___ SA Swab __x___ Last Dose of Plavix PI's (R)____ (L) Carotid: __x__ Mapping: ____ Dental: __x__ PFT's: Op Note: ____ Pacemaker Check: ABO/ABO Confirmed/Blood ordered: __x___ Consults: DM: Cardiac Surgical prep: Congenital factor VIII disorder 09/02/2009 07/02/2017 Overview: PMHx: Hemophilia, 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 At home on 6400U Recombinate. Patient has been following with Dr. Lyons Plan: -Hematology consult - Continue Recombinate as scheduled -Monitor PT/PTT -IPCs documented as of this encounter (statuses as of 02/10/2022) [facility] History of Past illness Narrative* Problem Noted Date Resolved Date Cerebrovascular accident (CV A) due to embolism of left carotid artery 01/18/2019 01/03/2021 Recurrent major depression in partial remission 01/18/2019 01/03/2021 Expressive aphasia 07/01/2017 01/03/2021 Overview: Following Left frontal region of MCA: resultant expressive aphasia. Last Assessment & Plan: Moderate aphasia -Continue speech exercises Lung nodule 09/28/2015 05/28/2020 Overview: Assessment: Cardiac chest CT scan 09/10/2015 reported Stable 5 mm calcified nodule right upper lobe. Based on current guidelines*, a repeat follow-up unenhanced low-dose CT can be obtained in 12 months at clinical discretion. Plan: Pt is aware, follow up w/ local MD. Tooth decay 09/26/2015 05/28/2020 Overview: History: Preop dental evaluation revealed gross decay and chronic abscess of tooth #2 Assessment: Dental recommended extraction of tooth #2. Plan: After clearance from ID, CTS, Hematology, pt underwent extraction #2 on 09/27/15. Continue amicar x 1 more dose today per Hematology. Seizure 09/26/2015 05/28/2020 Overview: History: H/o seizures, on keppra preop Assessment: 09/20/15 post op seizure in ICU. No further events Plan: Continue keppra. Follow up w/ Neurology after discharge. Last Assessment & Plan: Post stroke epilepsy -Continue Keppra 750mg twice daily -Medication compliance encouraged Atelectasis 09/20/2015 05/28/2020 Overview: History: CXR 09/26: Small pleural effusions have near completely resolved. Improvement of by basilar atelectatic changes .No pneumothorax Assessment: Wt is well below preop, on room air Plan: Encourage ambulation, C&DB, PEP. Stop lasix. Stress hyperglycemia 09/20/2015 09/23/2015 Overview: No h/o DM A/P: SSI. Hypovolemia 09/19/2015 09/24/2015 Overview: Post-op fluid shifts A/P: IVF resuscitation as needed. Essential hypertension 09/19/2015 Overview: History: no meds pre-op Assessment: SBP controlled Plan: continue metoprolol (changed to toprol XL), lisinopril. Follow up locally Last Assessment & Plan: Follow up with PCP Refill for Metoprolol provided Well controlled today. Severe aortic regurgitation 09/09/201512/22 Overview: History: 4+ AR Assessment: 09/19/2015 Reop: AVR #27 CE, Ascending aortic root replacement with composite graft including #32 gelweave graft Surgical Pathology: A. Aortic valve, excision - Bicuspid aortic valve with severe calcification and severe fibrosis (gross diagnosis only). B. Ascending aorta and Hemashield graft, excision - Chronic dissection. Plan: ASA daily. Postop echo 09/24/15: - No AR. The peak gradient is 22 mmHg, the mean gradient is 14 mmHg - EF = 35 5% - The right ventricle is normal in size. Right ventricular systolic function is normal. Post-op pain 09/09/2015 05/28/2020 Overview: History: Pre-op h/o back pain treated w/ oxycodone 20mg q 6hrs prn and MS contin 30mg tid. MRI 09/08 no evidence of discitis or osteomyelitis. Assessment: Verbalizes adequate pain relief on preop regimen. Plan: Continue Tylenol, lidoderm, and preop regimen of Oxycodone 20mg q 6hrs prn and MS Contin 30mg tid Preop testing 01/30/2015 09/23/2015 Overview: Images from the original note were not included. [facility] PRE-OP CHECK[facility] Surgeon: Emmanuel Wang M.D. Informed Consent Completed: No STS Score: AV Replacement Risk of Mortality: 2.61% Morbidity or Mortality: 29.84% Long Length of Stay: 16.325% Short Length of Stay: 15.915% Permanent Stroke: 2.899% Prolonged Ventilation: 22.329% DSW Infection: 0.168% Renal Failure: 5.656% Reoperation: 12.001% CAD: No Is intended procedure a CABG: No - is a beta jimmy ordered? No - reason: no documented CAD H & P completed: Yes PA/LAT: will need prior to surg CT: completed MRI:brain Completed LE US: N/A Cath: No Echo:Completed EKG: Completed EF %: 54% PI's: N/A Carotid: MRA of carotid: Completed Mapping: N/A Dental: Completed s/p extractions 12/2014 PFT's: N/A Recent Labs 01/30/15 0026 WBC 4.72 HB 9.9* HCT 30.4* PLT 185 INR 1.0 CREAT 0.75 UA: Normal HCG:N/A ABO/ABO Confirmed: Yes Blood ordered: Yes SA Swab: Yes - results: Negative Last Dose of Anticoagulation: heparin Op Note: Yes for surgery on 2009 Pacemaker Check: N/A Consults: ID, hematology DM: No Cardiac Surgical prep: Yes SIGNATURE: Ginette Luna CNP DATE of SERVICE: 01/30/2015 TIME of SERVICE: 4:19 PM Teri Gates CNP February 08, 2015 2:20 PM Pain 01/29/2015 05/28/2020 Overview: ,date--> increased narc dose for more optimal pain management. Endocarditis 01/29/2015 07/02/2017 Overview: History: January 29, 2015--> TTE completed--> continued changes c/w endocarditis on bicuspid aortic valve, similar to that seen on SABRA completed on 01/03/15. 01/30 cultures remain negative Assessment: WBC's WNL, afebrile Plan: Per ID: continue doxycline 100 mg po for possible Bartonella will review pathology of explanted valve with Dr Serrano when ready sequencing for Bartonella pending Stroke (cerebrum) 01/27/2015 01/03/2021 Overview: January 28, 2015--> likely cardioembolic. Following cardiology recs re: echo technque required for otpimal medcial dec. making wrt management/storke prevention. 01/30 as above January 31, 2015--> spoke to CTS staff who resuested a ntoe from stroke about recommended timing on Valve repalcement surgery, given his recent infarct. Also requested c/s from Hematology re: periop/intraop management of his primary coagulopathy. He also indicated that Mr. Harrington will need to undergo a SABRA and conv angio just prior to surgery, but alba snot need either study at this time. 07/29/17 Followed with [facility] Last Assessment & Plan: Secondary to I.E -Symptoms stable -Continue speech exercises Seizure 01/27/2015 09/23/2015 Overview: AEDs: fosPHT and keppra January 28, 2015--> remains seizure free on PHTN and keppar. PHTN level 1.4 yday. continuing serial PHTN levels to confirm optimal. January 29, 2015--> switchiing to oral keppra. Fospheny stopped -continue on Keppra. DVT prophylaxis 01/02/2015 01/03/2021 Overview: Ambulatory SCDS No chemoprophylactic due to hemorrhage Congenital bicuspid aortic valve 01/02/2015 05/28/2020 Overview: Monitor: pt will follow outpatient. Infective endocarditis of aortic valve 5 01/03/2021 Overview: History: Large vegetation on the [place] bicuspid aortic valve. 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 Was initially being medically managed w/ ceftriaxone/doxycline due to high surgical risk: redo status, hemophilia, spontaneous intracranial bleeds. Assessment: 09/19/2015 Reop: AVR #27 CE, Ascending aortic root replacement with composite graft including #32 Per ID note: Difficult to know exactly what the echodensities represent. His history does not robustly support a diagnosis of IE and GN may also be associated with Bartonella IE. He has been treated appropriately with antibiotics for Bartonella. Plan: Per ID recommendations: -continue oral 100 mg po for possible Bartonella -will review pathology of explanted valve with Dr Park today but report no evidence for IE -sequencing for Bartonella pending ( will plan on oral doxcycline until l results back) -no need for CoPAT Spoke to ID: ID will follow up on OR results, ok to discharge pt on doxycycline 100mg q 12 hrs Elevated blood pressure (not hypertension) 12/3105/28/2020 Overview: sBP < 140 sBP 110-130 Continue to monitor МАРИНА (acute kidney injury) 07/24/20142020 Overview: Creat 2.11 Nephrology recs appreciated Na 137 ICH (intracerebral hemorrhage) 07/17/2014 0 05/28/2020 Overview: History: R occipital ICH/IVH 07/17/14 s/p R temporal crani for evacuation. R frontal ICH/IVH 12/2014 s/p R frontal crani and hematoma evacuation; Cerebral angiogram was negative for aneurysm or AVM - Embolic L MCA (M1) territory stroke in 01/2015 Assessment: AXOx3, mild aphasia, right hemianopsia Plan: speech and OT consult Last Assessment & Plan: R occipital ICH/IVH 07/17/14 s/p R temporal crani for evacuation. R frontal ICH/IVH 12/2014 s/p R frontal crani and hematoma evacuation -Cerebral angiogram was negative for aneurysm or AVM -Symptoms are stable Acute respiratory failure 07/17/20142014 Overview: Patient intubated for surgery. 07/18 extubated post surgery. Chronic pain disorder 07/02/2012 07/02/2012 Overview: L arm pain, on percocet at home No with some distal L arm pain in distal radial distribution Plan: -Percolone q3, ?transition to long acting -Colace Aortic aneurysm without rupture 06/29/2012 06/30/2017 Overview: -MRI/MRA chest which revealed a slight interval increase in the size of the aneurysmal aortic root now measuring 5.2 cm (previously measuring 4.9 cm). No evidence of dissection. -HD stable, SBP: 111-131 Plan: -BP control -F/u CTS recs to confirm no intervention necessary -If no intervention necessary, likely d/c home soon given that there is no dissection Hyponatremia 12/12/2009 12/16/2009 Overview: Sodium WNL with aggressive diuresis. Was Likely dilutional etiology. Cont & taper diuretic. / Nonspecific T wave inversion. 12/12/2009 Overview: Patient's EKG notable for T wave inversion in leads II, III, aVf a well as the anterior leads upon admission to [facility] 12/12 which was a change from baseline EKG 12/09. Patient denies CP and other subjective complaints/changes. Cardiac enzymes sent -CK & MB elevated & troponin near baseline. Will cont to check serial Ambrose. D/W Dr. Arce - no other intevention at this time. / Leucocytosis 12/11/2009 12/12/2009 Overview: 12/11 - Afebrile. Conitnue daily monitoring Acute renal insufficiency 12/11/20092009 Overview: Post-op pre-renal bump in Cr to 1.47 12/11. Has since trended down with less aggressive diuresis. Cont with currect diuretic regimen as patient is fluid/volume overloaded. / Acute blood loss anemia 12/11/2009 07/02/19 13 Overview: H/H remains stable today, 12/17. Demonstrated inc CT output 12/11 & was given protamine. Subsequently had drop in H/H to 6.6/19.1 & was transfused 1U PRBC on 12/12 & 2U PRBC 12/13. CT shows small loculated pericardial effuision - confirmed with TTE. Hematology following for factor VIII replacement Rx. / Acute Pulmonary Edema/Fluid overload. 12/11/2009 07/02/2012 Overview: Weight remains below pre-op. Cont PEP/C&DB/OOB/Ambulate. 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 He will subsequently receive 7,364 units (6,750 units +/- 10%) q 12 hours. Check a factor 8 assay level s/p 3 doses ( 12/10 at 1700) Given at 07:25 AM today. Primary service would like to transfuse 2 units FFP in the unit 12/10 -: Factor VIII assay on 12/10 normal.PTT high,PT normal.CT output minimal.await hematology regarding factor VIII therapy. Preop testing 12/02/2009 12/10/2009 Overview: Blank means still needed; x means completed; NA means not applicable Surgeon: _BWL___ Surgeon Visit: _X_ Informed Consent Completed: _X__ STS Score: unsupp CAD Yes/No __no__ Is intended procedure an Isolated CABG yes/no ___no___ If yes, is a beta jimmy ordered preop If no, why H & P: __x__ PA/LAT __x__ CXR: _x___ EKG: _x___ CT __x__ MRI ____ LE US ____ LHC: __NA___ Reviewed, yes or no _NA__ RHC _NA____ Echo: __x__ EF %: _55_ Labs:CBC x____ CMP __x__Creatinine __x__ PT/PTT __x__ INR ___x_ UA __x___ SA Swab __x___ Last Dose of Plavix PI's (R)____ (L) Carotid: __x__ Mapping: ____ Dental: __x__ PFT's: Op Note: ____ Pacemaker Check: ABO/ABO Confirmed/Blood ordered: __x___ Consults: DM: Cardiac Surgical prep: Congenital factor VIII disorder 09/02/2009 07/02/2017 Overview: PMHx: Hemophilia, 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 At home on 6400U Recombinate. Patient has been following with Dr. Lyons Plan: -Hematology consult - Continue Recombinate as scheduled -Monitor PT/PTT -IPCs documented as of this encounter (statuses as of 03/05/2022) [facility] History of Past illness Narrative* Problem Noted Date Resolved Date Cerebrovascular accident (CV A) due to embolism of left carotid artery 01/18/2019 01/03/2021 Recurrent major depression in partial remission 01/18/2019 01/03/2021 Expressive aphasia 07/01/2017 01/03/2021 Overview: Following Left frontal region of MCA: resultant expressive aphasia. Last Assessment & Plan: Moderate aphasia -Continue speech exercises Lung nodule 09/28/2015 05/28/2020 Overview: Assessment: Cardiac chest CT scan 09/10/2015 reported Stable 5 mm calcified nodule right upper lobe. Based on current guidelines*, a repeat follow-up unenhanced low-dose CT can be obtained in 12 months at clinical discretion. Plan: Pt is aware, follow up w/ local MD. Tooth decay 09/26/2015 05/28/2020 Overview: History: Preop dental evaluation revealed gross decay and chronic abscess of tooth #2 Assessment: Dental recommended extraction of tooth #2. Plan: After clearance from ID, CTS, Hematology, pt underwent extraction #2 on 09/27/15. Continue amicar x 1 more dose today per Hematology. Seizure 09/26/2015 05/28/2020 Overview: History: H/o seizures, on keppra preop Assessment: 09/20/15 post op seizure in ICU. No further events Plan: Continue keppra. Follow up w/ Neurology after discharge. Last Assessment & Plan: Post stroke epilepsy -Continue Keppra 750mg twice daily -Medication compliance encouraged Atelectasis 09/20/2015 05/28/2020 Overview: History: CXR 09/26: Small pleural effusions have near completely resolved. Improvement of by basilar atelectatic changes .No pneumothorax Assessment: Wt is well below preop, on room air Plan: Encourage ambulation, C&DB, PEP. Stop lasix. Stress hyperglycemia 09/20/2015 09/23/2015 Overview: No h/o DM A/P: SSI. Hypovolemia 09/19/2015 09/24/2015 Overview: Post-op fluid shifts A/P: IVF resuscitation as needed. Essential hypertension 09/19/2015 Overview: History: no meds pre-op Assessment: SBP controlled Plan: continue metoprolol (changed to toprol XL), lisinopril. Follow up locally Last Assessment & Plan: Follow up with PCP Refill for Metoprolol provided Well controlled today. Severe aortic regurgitation 09/09/201512/22 Overview: History: 4+ AR Assessment: 09/19/2015 Reop: AVR #27 CE, Ascending aortic root replacement with composite graft including #32 gelweave graft Surgical Pathology: A. Aortic valve, excision - Bicuspid aortic valve with severe calcification and severe fibrosis (gross diagnosis only). B. Ascending aorta and Hemashield graft, excision - Chronic dissection. Plan: ASA daily. Postop echo 09/24/15: - No AR. The peak gradient is 22 mmHg, the mean gradient is 14 mmHg - EF = 35 5% - The right ventricle is normal in size. Right ventricular systolic function is normal. Post-op pain 09/09/2015 05/28/2020 Overview: History: Pre-op h/o back pain treated w/ oxycodone 20mg q 6hrs prn and MS contin 30mg tid. MRI 09/08 no evidence of discitis or osteomyelitis. Assessment: Verbalizes adequate pain relief on preop regimen. Plan: Continue Tylenol, lidoderm, and preop regimen of Oxycodone 20mg q 6hrs prn and MS Contin 30mg tid Preop testing 01/30/2015 09/23/2015 Overview: Images from the original note were not included. [facility] PRE[facility] Surgeon: Emmanuel Wang M.D. Informed Consent Completed: No STS Score: AV Replacement Risk of Mortality: 2.61% Morbidity or Mortality: 29.84% Long Length of Stay: 16.325% Short Length of Stay: 15.915% Permanent Stroke: 2.899% Prolonged Ventilation: 22.329% DSW Infection: 0.168% Renal Failure: 5.656% Reoperation: 12.001% CAD: No Is intended procedure a CABG: No - is a beta jimmy ordered? No - reason: no documented CAD H & P completed: Yes PA/LAT: will need prior to surg CT: completed MRI:brain Completed LE US: N/A Cath: No Echo:Completed EKG: Completed EF %: 54% PI's: N/A Carotid: MRA of carotid: Completed Mapping: N/A Dental: Completed s/p extractions 12/2014 PFT's: N/A Recent Labs 01/30/15 0026 WBC 4.72 HB 9.9* HCT 30.4* PLT 185 INR 1.0 CREAT 0.75 UA: Normal HCG:N/A ABO/ABO Confirmed: Yes Blood ordered: Yes SA Swab: Yes - results: Negative Last Dose of Anticoagulation: heparin Op Note: Yes for surgery on 2009 Pacemaker Check: N/A Consults: ID, hematology DM: No Cardiac Surgical prep: Yes SIGNATURE: Ginette Luna CNP DATE of SERVICE: 01/30/2015 TIME of SERVICE: 4:19 PM Teri Gates CNP February 08, 2015 2:20 PM Pain 01/29/2015 05/28/2020 Overview: ,date--> increased narc dose for more optimal pain management. Endocarditis 01/29/2015 07/02/2017 Overview: History: January 29, 2015--> TTE completed--> continued changes c/w endocarditis on bicuspid aortic valve, similar to that seen on SABRA completed on 01/03/15. 01/30 cultures remain negative Assessment: WBC's WNL, afebrile Plan: Per ID: continue doxycline 100 mg po for possible Bartonella will review pathology of explanted valve with Dr Serrano when ready sequencing for Bartonella pending Stroke (cerebrum) 01/27/2015 01/03/2021 Overview: January 28, 2015--> likely cardioembolic. Following cardiology recs re: echo technque required for otpimal medcial dec. making wrt management/storke prevention. 01/30 as above January 31, 2015--> spoke to CTS staff who resuested a ntoe from stroke about recommended timing on Valve repalcement surgery, given his recent infarct. Also requested c/s from Hematology re: periop/intraop management of his primary coagulopathy. He also indicated that Mr. Harrington will need to undergo a SABRA and conv angio just prior to surgery, but alba snot need either study at this time. 07/29/17 Followed with [facility] Last Assessment & Plan: Secondary to I.E -Symptoms stable -Continue speech exercises Seizure 01/27/2015 09/23/2015 Overview: AEDs: fosPHT and keppra January 28, 2015--> remains seizure free on PHTN and keppar. PHTN level 1.4 yday. continuing serial PHTN levels to confirm optimal. January 29, 2015--> switchiing to oral keppra. Fospheny stopped -continue on Keppra. DVT prophylaxis 01/02/2015 01/03/2021 Overview: Ambulatory SCDS No chemoprophylactic due to hemorrhage Congenital bicuspid aortic valve 01/02/2015 05/28/2020 Overview: Monitor: pt will follow outpatient. Infective endocarditis of aortic valve 5 01/03/2021 Overview: History: Large vegetation on the [place] bicuspid aortic valve. 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 Was initially being medically managed w/ ceftriaxone/doxycline due to high surgical risk: redo status, hemophilia, spontaneous intracranial bleeds. Assessment: 09/19/2015 Reop: AVR #27 CE, Ascending aortic root replacement with composite graft including #32 Per ID note: Difficult to know exactly what the echodensities represent. His history does not robustly support a diagnosis of IE and GN may also be associated with Bartonella IE. He has been treated appropriately with antibiotics for Bartonella. Plan: Per ID recommendations: -continue oral 100 mg po for possible Bartonella -will review pathology of explanted valve with Dr Pakr today but report no evidence for IE -sequencing for Bartonella pending ( will plan on oral doxcycline until l results back) -no need for CoPAT Spoke to ID: ID will follow up on OR results, ok to discharge pt on doxycycline 100mg q 12 hrs Elevated blood pressure (not hypertension) 12/3105/28/2020 Overview: sBP < 140 sBP 110-130 Continue to monitor МАРИНА (acute kidney injury) 07/24/20142020 Overview: Creat 2.11 Nephrology recs appreciated Na 137 ICH (intracerebral hemorrhage) 07/17/2014 0 05/28/2020 Overview: History: R occipital ICH/IVH 07/17/14 s/p R temporal crani for evacuation. R frontal ICH/IVH 12/2014 s/p R frontal crani and hematoma evacuation; Cerebral angiogram was negative for aneurysm or AVM - Embolic L MCA (M1) territory stroke in 01/2015 Assessment: AXOx3, mild aphasia, right hemianopsia Plan: speech and OT consult Last Assessment & Plan: R occipital ICH/IVH 07/17/14 s/p R temporal crani for evacuation. R frontal ICH/IVH 12/2014 s/p R frontal crani and hematoma evacuation -Cerebral angiogram was negative for aneurysm or AVM -Symptoms are stable Acute respiratory failure 07/17/20142014 Overview: Patient intubated for surgery. 07/18 extubated post surgery. Chronic pain disorder 07/02/2012 07/02/2012 Overview: L arm pain, on percocet at home No with some distal L arm pain in distal radial distribution Plan: -Percolone q3, ?transition to long acting -Colace Aortic aneurysm without rupture 06/29/2012 06/30/2017 Overview: -MRI/MRA chest which revealed a slight interval increase in the size of the aneurysmal aortic root now measuring 5.2 cm (previously measuring 4.9 cm). No evidence of dissection. -HD stable, SBP: 111-131 Plan: -BP control -F/u CTS recs to confirm no intervention necessary -If no intervention necessary, likely d/c home soon given that there is no dissection Hyponatremia 12/12/2009 12/16/2009 Overview: Sodium WNL with aggressive diuresis. Was Likely dilutional etiology. Cont & taper diuretic. / Nonspecific T wave inversion. 12/12/2009 Overview: Patient's EKG notable for T wave inversion in leads II, III, aVf a well as the anterior leads upon admission to [facility] 12/12 which was a change from baseline EKG 12/09. Patient denies CP and other subjective complaints/changes. Cardiac enzymes sent -CK & MB elevated & troponin near baseline. Will cont to check serial Ambrose. D/W Dr. Arce - no other intevention at this time. / Leucocytosis 12/11/2009 12/12/2009 Overview: 12/11 - Afebrile. Conitnue daily monitoring Acute renal insufficiency 12/11/20092009 Overview: Post-op pre-renal bump in Cr to 1.47 12/11. Has since trended down with less aggressive diuresis. Cont with currect diuretic regimen as patient is fluid/volume overloaded. / Acute blood loss anemia 12/11/2009 07/02/19 13 Overview: H/H remains stable today, 12/17. Demonstrated inc CT output 12/11 & was given protamine. Subsequently had drop in H/H to 6.6/19.1 & was transfused 1U PRBC on 12/12 & 2U PRBC 12/13. CT shows small loculated pericardial effuision - confirmed with TTE. Hematology following for factor VIII replacement Rx. / Acute Pulmonary Edema/Fluid overload. 12/11/2009 07/02/2012 Overview: Weight remains below pre-op. Cont PEP/C&DB/OOB/Ambulate. 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 He will subsequently receive 7,364 units (6,750 units +/- 10%) q 12 hours. Check a factor 8 assay level s/p 3 doses ( 12/10 at 1700) Given at 07:25 AM today. Primary service would like to transfuse 2 units FFP in the unit 12/10: Factor VIII assay on 12/10 normal.PTT high,PT normal.CT output minimal.await hematology regarding factor VIII therapy. Preop testing 12/02/2009 12/10/2009 Overview: Blank means still needed; x means completed; NA means not applicable Surgeon: _BWL___ Surgeon Visit: _X_ Informed Consent Completed: _X__ STS Score: unsupp CAD Yes/No __no__ Is intended procedure an Isolated CABG yes/no ___no___ If yes, is a beta jimmy ordered preop If no, why H & P: __x__ PA/LAT __x__ CXR: _x___ EKG: _x___ CT __x__ MRI ____ LE US ____ LHC: __NA___ Reviewed, yes or no _NA__ RHC _NA____ Echo: __x__ EF %: _55_ Labs:CBC x____ CMP __x__Creatinine __x__ PT/PTT __x__ INR ___x_ UA __x___ SA Swab __x___ Last Dose of Plavix PI's (R)____ (L) Carotid: __x__ Mapping: ____ Dental: __x__ PFT's: Op Note: ____ Pacemaker Check: ABO/ABO Confirmed/Blood ordered: __x___ Consults: DM: Cardiac Surgical prep: Congenital factor VIII disorder 09/02/2009 07/02/2017 Overview: PMHx: Hemophilia, 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 At home on 6400U Recombinate. Patient has been following with Dr. Lyons Plan: -Hematology consult - Continue Recombinate as scheduled -Monitor PT/PTT -IPCs documented as of this encounter (statuses as of 04/13/2022) [facility] History of Past illness Narrative* Problem Noted Date Resolved Date Cerebrovascular accident (CV A) due to embolism of left carotid artery 01/18/2019 01/03/2021 Recurrent major depression in partial remission 01/18/2019 01/03/2021 Expressive aphasia 07/01/2017 01/03/2021 Overview: Following Left frontal region of MCA: resultant expressive aphasia. Last Assessment & Plan: Moderate aphasia -Continue speech exercises Lung nodule 09/28/2015 05/28/2020 Overview: Assessment: Cardiac chest CT scan 09/10/2015 reported Stable 5 mm calcified nodule right upper lobe. Based on current guidelines*, a repeat follow-up unenhanced low-dose CT can be obtained in 12 months at clinical discretion. Plan: Pt is aware, follow up w/ local MD. Tooth decay 09/26/2015 05/28/2020 Overview: History: Preop dental evaluation revealed gross decay and chronic abscess of tooth #2 Assessment: Dental recommended extraction of tooth #2. Plan: After clearance from ID, CTS, Hematology, pt underwent extraction #2 on 09/27/15. Continue amicar x 1 more dose today per Hematology. Seizure 09/26/2015 05/28/2020 Overview: History: H/o seizures, on keppra preop Assessment: 09/20/15 post op seizure in ICU. No further events Plan: Continue keppra. Follow up w/ Neurology after discharge. Last Assessment & Plan: Post stroke epilepsy -Continue Keppra 750mg twice daily -Medication compliance encouraged Atelectasis 09/20/2015 05/28/2020 Overview: History: CXR 09/26: Small pleural effusions have near completely resolved. Improvement of by basilar atelectatic changes .No pneumothorax Assessment: Wt is well below preop, on room air Plan: Encourage ambulation, C&DB, PEP. Stop lasix. Stress hyperglycemia 09/20/2015 09/23/2015 Overview: No h/o DM A/P: SSI. Hypovolemia 09/19/2015 09/24/2015 Overview: Post-op fluid shifts A/P: IVF resuscitation as needed. Essential hypertension 09/19/2015 Overview: History: no meds pre-op Assessment: SBP controlled Plan: continue metoprolol (changed to toprol XL), lisinopril. Follow up locally Last Assessment & Plan: Follow up with PCP Refill for Metoprolol provided Well controlled today. Severe aortic regurgitation 09/09/201512/22 Overview: History: 4+ AR Assessment: 09/19/2015 Reop: AVR #27 CE, Ascending aortic root replacement with composite graft including #32 gelweave graft Surgical Pathology: A. Aortic valve, excision - Bicuspid aortic valve with severe calcification and severe fibrosis (gross diagnosis only). B. Ascending aorta and Hemashield graft, excision - Chronic dissection. Plan: ASA daily. Postop echo 09/24/15: - No AR. The peak gradient is 22 mmHg, the mean gradient is 14 mmHg - EF = 35 5% - The right ventricle is normal in size. Right ventricular systolic function is normal. Post-op pain 09/09/2015 05/28/2020 Overview: History: Pre-op h/o back pain treated w/ oxycodone 20mg q 6hrs prn and MS contin 30mg tid. MRI 09/08 no evidence of discitis or osteomyelitis. Assessment: Verbalizes adequate pain relief on preop regimen. Plan: Continue Tylenol, lidoderm, and preop regimen of Oxycodone 20mg q 6hrs prn and MS Contin 30mg tid Preop testing 01/30/2015 09/23/2015 Overview: Images from the original note were not included. [facility] PRE-OP CHECK[facility] Surgeon: Emmanuel Wang M.D. Informed Consent Completed: No STS Score: AV Replacement Risk of Mortality: 2.61% Morbidity or Mortality: 29.84% Long Length of Stay: 16.325% Short Length of Stay: 15.915% Permanent Stroke: 2.899% Prolonged Ventilation: 22.329% DSW Infection: 0.168% Renal Failure: 5.656% Reoperation: 12.001% CAD: No Is intended procedure a CABG: No - is a beta jimmy ordered? No - reason: no documented CAD H & P completed: Yes PA/LAT: will need prior to surg CT: completed MRI:brain Completed LE US: N/A Cath: No Echo:Completed EKG: Completed EF %: 54% PI's: N/A Carotid: MRA of carotid: Completed Mapping: N/A Dental: Completed s/p extractions 12/2014 PFT's: N/A Recent Labs 01/30/15 0026 WBC 4.72 HB 9.9* HCT 30.4* PLT 185 INR 1.0 CREAT 0.75 UA: Normal HCG:N/A ABO/ABO Confirmed: Yes Blood ordered: Yes SA Swab: Yes - results: Negative Last Dose of Anticoagulation: heparin Op Note: Yes for surgery on 2009 Pacemaker Check: N/A Consults: ID, hematology DM: No Cardiac Surgical prep: Yes SIGNATURE: Ginette Luna CNP DATE of SERVICE: 01/30/2015 TIME of SERVICE: 4:19 PM Teri Gates CNP February 08, 2015 2:20 PM Pain 01/29/2015 05/28/2020 Overview: ,date--> increased narc dose for more optimal pain management. Endocarditis 01/29/2015 07/02/2017 Overview: History: January 29, 2015--> TTE completed--> continued changes c/w endocarditis on bicuspid aortic valve, similar to that seen on SABRA completed on 01/03/15. 01/30 cultures remain negative Assessment: WBC's WNL, afebrile Plan: Per ID: continue doxycline 100 mg po for possible Bartonella will review pathology of explanted valve with Dr Serrano when ready sequencing for Bartonella pending Stroke (cerebrum) 01/27/2015 01/03/2021 Overview: January 28, 2015--> likely cardioembolic. Following cardiology recs re: echo technque required for otpimal medcial dec. making wrt management/storke prevention. 01/30 as above January 31, 2015--> spoke to CTS staff who resuested a ntoe from stroke about recommended timing on Valve repalcement surgery, given his recent infarct. Also requested c/s from Hematology re: periop/intraop management of his primary coagulopathy. He also indicated that Mr. Harrington will need to undergo a SABRA and conv angio just prior to surgery, but alba snot need either study at this time. 07/29/17 Followed with [facility] Last Assessment & Plan: Secondary to I.E -Symptoms stable -Continue speech exercises Seizure 01/27/2015 09/23/2015 Overview: AEDs: fosPHT and keppra January 28, 2015--> remains seizure free on PHTN and keppar. PHTN level 1.4 yday. continuing serial PHTN levels to confirm optimal. January 29, 2015--> switchiing to oral keppra. Fospheny stopped -continue on Keppra. DVT prophylaxis 01/02/2015 01/03/2021 Overview: Ambulatory SCDS No chemoprophylactic due to hemorrhage Congenital bicuspid aortic valve 01/02/2015 05/28/2020 Overview: Monitor: pt will follow outpatient. Infective endocarditis of aortic valve 5 01/03/2021 Overview: History: Large vegetation on the [place] bicuspid aortic valve. 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 Was initially being medically managed w/ ceftriaxone/doxycline due to high surgical risk: redo status, hemophilia, spontaneous intracranial bleeds. Assessment: 09/19/2015 Reop: AVR #27 CE, Ascending aortic root replacement with composite graft including #32 Per ID note: Difficult to know exactly what the echodensities represent. His history does not robustly support a diagnosis of IE and GN may also be associated with Bartonella IE. He has been treated appropriately with antibiotics for Bartonella. Plan: Per ID recommendations: -continue oral 100 mg po for possible Bartonella -will review pathology of explanted valve with Dr Park today but report no evidence for IE -sequencing for Bartonella pending ( will plan on oral doxcycline until l results back) -no need for CoPAT Spoke to ID: ID will follow up on OR results, ok to discharge pt on doxycycline 100mg q 12 hrs Elevated blood pressure (not hypertension) 12/3105/28/2020 Overview: sBP < 140 sBP 110-130 Continue to monitor МАРИНА (acute kidney injury) 07/24/20142020 Overview: Creat 2.11 Nephrology recs appreciated Na 137 ICH (intracerebral hemorrhage) 07/17/2014 0 05/28/2020 Overview: History: R occipital ICH/IVH 07/17/14 s/p R temporal crani for evacuation. R frontal ICH/IVH 12/2014 s/p R frontal crani and hematoma evacuation; Cerebral angiogram was negative for aneurysm or AVM - Embolic L MCA (M1) territory stroke in 01/2015 Assessment: AXOx3, mild aphasia, right hemianopsia Plan: speech and OT consult Last Assessment & Plan: R occipital ICH/IVH 07/17/14 s/p R temporal crani for evacuation. R frontal ICH/IVH 12/2014 s/p R frontal crani and hematoma evacuation -Cerebral angiogram was negative for aneurysm or AVM -Symptoms are stable Acute respiratory failure 07/17/20142014 Overview: Patient intubated for surgery. 07/18 extubated post surgery. Chronic pain disorder 07/02/2012 07/02/2012 Overview: L arm pain, on percocet at home No with some distal L arm pain in distal radial distribution Plan: -Percolone q3, ?transition to long acting -Colace Aortic aneurysm without rupture 06/29/2012 06/30/2017 Overview: -MRI/MRA chest which revealed a slight interval increase in the size of the aneurysmal aortic root now measuring 5.2 cm (previously measuring 4.9 cm). No evidence of dissection. -HD stable, SBP: 111-131 Plan: -BP control -F/u CTS recs to confirm no intervention necessary -If no intervention necessary, likely d/c home soon given that there is no dissection Hyponatremia 12/12/2009 12/16/2009 Overview: Sodium WNL with aggressive diuresis. Was Likely dilutional etiology. Cont & taper diuretic. / Nonspecific T wave inversion. 12/12/2009 Overview: Patient's EKG notable for T wave inversion in leads II, III, aVf a well as the anterior leads upon admission to [facility] 12/12 which was a change from baseline EKG 12/09. Patient denies CP and other subjective complaints/changes. Cardiac enzymes sent -CK & MB elevated & troponin near baseline. Will cont to check serial Ambrose. D/W Dr. Arce - no other intevention at this time. / Leucocytosis 12/11/2009 12/12/2009 Overview: 12/11 - Afebrile. Conitnue daily monitoring Acute renal insufficiency 12/11/20092009 Overview: Post-op pre-renal bump in Cr to 1.47 12/11. Has since trended down with less aggressive diuresis. Cont with currect diuretic regimen as patient is fluid/volume overloaded. / Acute blood loss anemia 12/11/2009 07/02/19 13 Overview: H/H remains stable today, 12/17. Demonstrated inc CT output 12/11 & was given protamine. Subsequently had drop in H/H to 6.6/.1 & was transfused 1U PRBC on 12/12 & 2U PRBC 12/13. CT shows small loculated pericardial effuision - confirmed with TTE. Hematology following for factor VIII replacement Rx. / Acute Pulmonary Edema/Fluid overload. 12/11/2009 07/02/2012 Overview: Weight remains below pre-op. Cont PEP/C&DB/OOB/Ambulate. 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 He will subsequently receive 7,364 units (6,750 units +/- 10%) q 12 hours. Check a factor 8 assay level s/p 3 doses ( 12/10 at 1700) Given at 07:25 AM today. Primary service would like to transfuse 2 units FFP in the unit 12/10 -: Factor VIII assay on 12/10 normal.PTT high,PT normal.CT output minimal.await hematology regarding factor VIII therapy. Preop testing 12/02/2009 12/10/2009 Overview: Blank means still needed; x means completed; NA means not applicable Surgeon: _BWL___ Surgeon Visit: _X_ Informed Consent Completed: _X__ STS Score: unsupp CAD Yes/No __no__ Is intended procedure an Isolated CABG yes/no ___no___ If yes, is a beta jimmy ordered preop If no, why H & P: __x__ PA/LAT __x__ CXR: _x___ EKG: _x___ CT __x__ MRI ____ LE US ____ LHC: __NA___ Reviewed, yes or no _NA__ RHC _NA____ Echo: __x__ EF %: _55_ Labs:CBC x____ CMP __x__Creatinine __x__ PT/PTT __x__ INR ___x_ UA __x___ SA Swab __x___ Last Dose of Plavix PI's (R)____ (L) Carotid: __x__ Mapping: ____ Dental: __x__ PFT's: Op Note: ____ Pacemaker Check: ABO/ABO Confirmed/Blood ordered: __x___ Consults: DM: Cardiac Surgical prep: Congenital factor VIII disorder 09/02/2009 07/02/2017 Overview: PMHx: Hemophilia, 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 At home on 6400U Recombinate. Patient has been following with Dr. Lyons Plan: -Hematology consult - Continue Recombinate as scheduled -Monitor PT/PTT -IPCs documented as of this encounter (statuses as of 04/23/2022) [facility]08-28-2019 History of Past illness Narrative* Problem Noted Date Resolved Date Cerebrovascular accident (CV A) due to embolism of left carotid artery 01/18/2019 01/03/2021 Recurrent major depression in partial remission 01/18/2019 01/03/2021 Expressive aphasia 07/01/2017 01/03/2021 Overview: Following Left frontal region of MCA: resultant expressive aphasia. Last Assessment & Plan: Moderate aphasia -Continue speech exercises Lung nodule 09/28/2015 05/28/2020 Overview: Assessment: Cardiac chest CT scan 09/10/2015 reported Stable 5 mm calcified nodule right upper lobe. Based on current guidelines*, a repeat follow-up unenhanced low-dose CT can be obtained in 12 months at clinical discretion. Plan: Pt is aware, follow up w/ local MD. Tooth decay 09/26/2015 05/28/2020 Overview: History: Preop dental evaluation revealed gross decay and chronic abscess of tooth #2 Assessment: Dental recommended extraction of tooth #2. Plan: After clearance from ID, CTS, Hematology, pt underwent extraction #2 on 09/27/15. Continue amicar x 1 more dose today per Hematology. Seizure 09/26/2015 05/28/2020 Overview: History: H/o seizures, on keppra preop Assessment: 09/20/15 post op seizure in ICU. No further events Plan: Continue keppra. Follow up w/ Neurology after discharge. Last Assessment & Plan: Post stroke epilepsy -Continue Keppra 750mg twice daily -Medication compliance encouraged Atelectasis 09/20/2015 05/28/2020 Overview: History: CXR 09/26: Small pleural effusions have near completely resolved. Improvement of by basilar atelectatic changes .No pneumothorax Assessment: Wt is well below preop, on room air Plan: Encourage ambulation, C&DB, PEP. Stop lasix. Stress hyperglycemia 09/20/2015 09/23/2015 Overview: No h/o DM A/P: SSI. Hypovolemia 09/19/2015 09/24/2015 Overview: Post-op fluid shifts A/P: IVF resuscitation as needed. Essential hypertension 09/19/2015 Overview: History: no meds pre-op Assessment: SBP controlled Plan: continue metoprolol (changed to toprol XL), lisinopril. Follow up locally Last Assessment & Plan: Follow up with PCP Refill for Metoprolol provided Well controlled today. Severe aortic regurgitation 09/09/201512/22 Overview: History: 4+ AR Assessment: 09/19/2015 Reop: AVR #27 CE, Ascending aortic root replacement with composite graft including #32 gelweave graft Surgical Pathology: A. Aortic valve, excision - Bicuspid aortic valve with severe calcification and severe fibrosis (gross diagnosis only). B. Ascending aorta and Hemashield graft, excision - Chronic dissection. Plan: ASA daily. Postop echo 09/24/15: - No AR. The peak gradient is 22 mmHg, the mean gradient is 14 mmHg - EF = 35 5% - The right ventricle is normal in size. Right ventricular systolic function is normal. Post-op pain 09/09/2015 05/28/2020 Overview: History: Pre-op h/o back pain treated w/ oxycodone 20mg q 6hrs prn and MS contin 30mg tid. MRI 09/08 no evidence of discitis or osteomyelitis. Assessment: Verbalizes adequate pain relief on preop regimen. Plan: Continue Tylenol, lidoderm, and preop regimen of Oxycodone 20mg q 6hrs prn and MS Contin 30mg tid Preop testing 01/30/2015 09/23/2015 Overview: Images from the original note were not included. [facility] PRE[facility] Surgeon: Emmanuel Wang M.D. Informed Consent Completed: No STS Score: AV Replacement Risk of Mortality: 2.61% Morbidity or Mortality: 29.84% Long Length of Stay: 16.325% Short Length of Stay: 15.915% Permanent Stroke: 2.899% Prolonged Ventilation: 22.329% DSW Infection: 0.168% Renal Failure: 5.656% Reoperation: 12.001% CAD: No Is intended procedure a CABG: No - is a beta jimmy ordered? No - reason: no documented CAD H & P completed: Yes PA/LAT: will need prior to surg CT: completed MRI:brain Completed LE US: N/A Cath: No Echo:Completed EKG: Completed EF %: 54% PI's: N/A Carotid: MRA of carotid: Completed Mapping: N/A Dental: Completed s/p extractions 12/2014 PFT's: N/A Recent Labs 01/30/15 0026 WBC 4.72 HB 9.9* HCT 30.4* PLT 185 INR 1.0 CREAT 0.75 UA: Normal HCG:N/A ABO/ABO Confirmed: Yes Blood ordered: Yes SA Swab: Yes - results: Negative Last Dose of Anticoagulation: heparin Op Note: Yes for surgery on 2009 Pacemaker Check: N/A Consults: ID, hematology DM: No Cardiac Surgical prep: Yes SIGNATURE: Ginette Luna CNP DATE of SERVICE: 01/30/2015 TIME of SERVICE: 4:19 PM Teri Gates CNP February 08, 2015 2:20 PM Pain 01/29/2015 05/28/2020 Overview: ,date--> increased narc dose for more optimal pain management. Endocarditis 01/29/2015 07/02/2017 Overview: History: January 29, 2015--> TTE completed--> continued changes c/w endocarditis on bicuspid aortic valve, similar to that seen on SABRA completed on 01/03/15. 01/30 cultures remain negative Assessment: WBC's WNL, afebrile Plan: Per ID: continue doxycline 100 mg po for possible Bartonella will review pathology of explanted valve with Dr Serrano when ready sequencing for Bartonella pending Stroke (cerebrum) 01/27/2015 01/03/2021 Overview: January 28, 2015--> likely cardioembolic. Following cardiology recs re: echo technque required for otpimal medcial dec. making wrt management/storke prevention. 01/30 as above January 31, 2015--> spoke to CTS staff who resuested a ntoe from stroke about recommended timing on Valve repalcement surgery, given his recent infarct. Also requested c/s from Hematology re: periop/intraop management of his primary coagulopathy. He also indicated that Mr. Harrington will need to undergo a SABRA and conv angio just prior to surgery, but alba snot need either study at this time. 07/29/17 Followed with [facility] Last Assessment & Plan: Secondary to I.E -Symptoms stable -Continue speech exercises Seizure 01/27/2015 09/23/2015 Overview: AEDs: fosPHT and keppra January 28, 2015--> remains seizure free on PHTN and keppar. PHTN level 1.4 yday. continuing serial PHTN levels to confirm optimal. January 29, 2015--> switchiing to oral keppra. Fospheny stopped -continue on Keppra. DVT prophylaxis 01/02/2015 01/03/2021 Overview: Ambulatory SCDS No chemoprophylactic due to hemorrhage Congenital bicuspid aortic valve 01/02/2015 05/28/2020 Overview: Monitor: pt will follow outpatient. Infective endocarditis of aortic valve 5 01/03/2021 Overview: History: Large vegetation on the [place] bicuspid aortic valve. 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 Was initially being medically managed w/ ceftriaxone/doxycline due to high surgical risk: redo status, hemophilia, spontaneous intracranial bleeds. Assessment: 09/19/2015 Reop: AVR #27 CE, Ascending aortic root replacement with composite graft including #32 Per ID note: Difficult to know exactly what the echodensities represent. His history does not robustly support a diagnosis of IE and GN may also be associated with Bartonella IE. He has been treated appropriately with antibiotics for Bartonella. Plan: Per ID recommendations: -continue oral 100 mg po for possible Bartonella -will review pathology of explanted valve with Dr Park today but report no evidence for IE -sequencing for Bartonella pending ( will plan on oral doxcycline until l results back) -no need for CoPAT Spoke to ID: ID will follow up on OR results, ok to discharge pt on doxycycline 100mg q 12 hrs Elevated blood pressure (not hypertension) 12/3105/28/2020 Overview: sBP < 140 sBP 110-130 Continue to monitor МАРИНА (acute kidney injury) 07/24/20142020 Overview: Creat 2.11 Nephrology recs appreciated Na 137 ICH (intracerebral hemorrhage) 07/17/2014 0 05/28/2020 Overview: History: R occipital ICH/IVH 07/17/14 s/p R temporal crani for evacuation. R frontal ICH/IVH 12/2014 s/p R frontal crani and hematoma evacuation; Cerebral angiogram was negative for aneurysm or AVM - Embolic L MCA (M1) territory stroke in 01/2015 Assessment: AXOx3, mild aphasia, right hemianopsia Plan: speech and OT consult Last Assessment & Plan: R occipital ICH/IVH 07/17/14 s/p R temporal crani for evacuation. R frontal ICH/IVH 12/2014 s/p R frontal crani and hematoma evacuation -Cerebral angiogram was negative for aneurysm or AVM -Symptoms are stable Acute respiratory failure 07/17/20142014 Overview: Patient intubated for surgery. 07/18 extubated post surgery. Chronic pain disorder 07/02/2012 07/02/2012 Overview: L arm pain, on percocet at home No with some distal L arm pain in distal radial distribution Plan: -Percolone q3, ?transition to long acting -Colace Aortic aneurysm without rupture 06/29/2012 06/30/2017 Overview: -MRI/MRA chest which revealed a slight interval increase in the size of the aneurysmal aortic root now measuring 5.2 cm (previously measuring 4.9 cm). No evidence of dissection. -HD stable, SBP: 111-131 Plan: -BP control -F/u CTS recs to confirm no intervention necessary -If no intervention necessary, likely d/c home soon given that there is no dissection Hyponatremia 12/12/2009 12/16/2009 Overview: Sodium WNL with aggressive diuresis. Was Likely dilutional etiology. Cont & taper diuretic. / Nonspecific T wave inversion. 12/12/2009 Overview: Patient's EKG notable for T wave inversion in leads II, III, aVf a well as the anterior leads upon admission to [facility] 12/12 which was a change from baseline EKG 12/09. Patient denies CP and other subjective complaints/changes. Cardiac enzymes sent -CK & MB elevated & troponin near baseline. Will cont to check serial Ambrose. D/W Dr. Arce - no other intevention at this time. / Leucocytosis 12/11/2009 12/12/2009 Overview: 12/11 - Afebrile. Conitnue daily monitoring Acute renal insufficiency 12/11/20092009 Overview: Post-op pre-renal bump in Cr to 1.47 12/11. Has since trended down with less aggressive diuresis. Cont with currect diuretic regimen as patient is fluid/volume overloaded. / Acute blood loss anemia 12/11/2009 07/02/19 13 Overview: H/H remains stable today, 12/17. Demonstrated inc CT output 12/11 & was given protamine. Subsequently had drop in H/H to 6.6/19.1 & was transfused 1U PRBC on 12/12 & 2U PRBC 12/13. CT shows small loculated pericardial effuision - confirmed with TTE. Hematology following for factor VIII replacement Rx. / Acute Pulmonary Edema/Fluid overload. 12/11/2009 07/02/2012 Overview: Weight remains below pre-op. Cont PEP/C&DB/OOB/Ambulate. 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 He will subsequently receive 7,364 units (6,750 units +/- 10%) q 12 hours. Check a factor 8 assay level s/p 3 doses ( 12/10 at 1700) Given at 07:25 AM today. Primary service would like to transfuse 2 units FFP in the unit 12/10 -: Factor VIII assay on 12/10 normal.PTT high,PT normal.CT output minimal.await hematology regarding factor VIII therapy. Preop testing 12/02/2009 12/10/2009 Overview: Blank means still needed; x means completed; NA means not applicable Surgeon: _BWL___ Surgeon Visit: _X_ Informed Consent Completed: _X__ STS Score: unsupp CAD Yes/No __no__ Is intended procedure an Isolated CABG yes/no ___no___ If yes, is a beta jimmy ordered preop If no, why H & P: __x__ PA/LAT __x__ CXR: _x___ EKG: _x___ CT __x__ MRI ____ LE US ____ LHC: __NA___ Reviewed, yes or no _NA__ RHC _NA____ Echo: __x__ EF %: _55_ Labs:CBC x____ CMP __x__Creatinine __x__ PT/PTT __x__ INR ___x_ UA __x___ SA Swab __x___ Last Dose of Plavix PI's (R)____ (L) Carotid: __x__ Mapping: ____ Dental: __x__ PFT's: Op Note: ____ Pacemaker Check: ABO/ABO Confirmed/Blood ordered: __x___ Consults: DM: Cardiac Surgical prep: Congenital factor VIII disorder 09/02/2009 07/02/2017 Overview: PMHx: Hemophilia, 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 At home on 6400U Recombinate. Patient has been following with Dr. Lyons Plan: -Hematology consult - Continue Recombinate as scheduled -Monitor PT/PTT -IPCs documented as of this encounter (statuses as of 04/28/2022) [facility] History of Past illness Narrative* Problem Noted Date Resolved Date Cerebrovascular accident (CV A) due to embolism of left carotid artery 01/18/2019 01/03/2021 Recurrent major depression in partial remission 01/18/2019 01/03/2021 Expressive aphasia 07/01/2017 01/03/2021 Overview: Following Left frontal region of MCA: resultant expressive aphasia. Last Assessment & Plan: Moderate aphasia -Continue speech exercises Lung nodule 09/28/2015 05/28/2020 Overview: Assessment: Cardiac chest CT scan 09/10/2015 reported Stable 5 mm calcified nodule right upper lobe. Based on current guidelines*, a repeat follow-up unenhanced low-dose CT can be obtained in 12 months at clinical discretion. Plan: Pt is aware, follow up w/ local MD. Tooth decay 09/26/2015 05/28/2020 Overview: History: Preop dental evaluation revealed gross decay and chronic abscess of tooth #2 Assessment: Dental recommended extraction of tooth #2. Plan: After clearance from ID, CTS, Hematology, pt underwent extraction #2 on 09/27/15. Continue amicar x 1 more dose today per Hematology. Seizure 09/26/2015 05/28/2020 Overview: History: H/o seizures, on keppra preop Assessment: 09/20/15 post op seizure in ICU. No further events Plan: Continue keppra. Follow up w/ Neurology after discharge. Last Assessment & Plan: Post stroke epilepsy -Continue Keppra 750mg twice daily -Medication compliance encouraged Atelectasis 09/20/2015 05/28/2020 Overview: History: CXR 5/6: Small pleural effusions have near completely resolved. Improvement of by basilar atelectatic changes .No pneumothorax Assessment: Wt is well below preop, on room air Plan: Encourage ambulation, C&DB, PEP. Stop lasix. Stress hyperglycemia 09/20/2015 09/23/2015 Overview: No h/o DM A/P: SSI. Hypovolemia 09/19/2015 09/24/2015 Overview: Post-op fluid shifts A/P: IVF resuscitation as needed. Essential hypertension 09/19/2015 Overview: History: no meds pre-op Assessment: SBP controlled Plan: continue metoprolol (changed to toprol XL), lisinopril. Follow up locally Last Assessment & Plan: Follow up with PCP Refill for Metoprolol provided Well controlled today. Severe aortic regurgitation 09/09/201512/22 Overview: History: 4+ AR Assessment: 09/19/2015 Reop: AVR #27 CE, Ascending aortic root replacement with composite graft including #32 gelweave graft Surgical Pathology: A. Aortic valve, excision - Bicuspid aortic valve with severe calcification and severe fibrosis (gross diagnosis only). B. Ascending aorta and Hemashield graft, excision - Chronic dissection. Plan: ASA daily. Postop echo 09/24/15: - No AR. The peak gradient is 22 mmHg, the mean gradient is 14 mmHg - EF = 35 5% - The right ventricle is normal in size. Right ventricular systolic function is normal. Post-op pain 09/09/2015 05/28/2020 Overview: History: Pre-op h/o back pain treated w/ oxycodone 20mg q 6hrs prn and MS contin 30mg tid. MRI 09/08 no evidence of discitis or osteomyelitis. Assessment: Verbalizes adequate pain relief on preop regimen. Plan: Continue Tylenol, lidoderm, and preop regimen of Oxycodone 20mg q 6hrs prn and MS Contin 30mg tid Preop testing 01/30/2015 09/23/2015 Overview: Images from the original note were not included. [facility] PRE-OP CHECKLIST Surgeon: Emmanuel Wang M.D. Informed Consent Completed: No STS Score: AV Replacement Risk of Mortality: 2.61% Morbidity or Mortality: 29.84% Long Length of Stay: 16.325% Short Length of Stay: 15.915% Permanent Stroke: 2.899% Prolonged Ventilation: 22.329% DSW Infection: 0.168% Renal Failure: 5.656% Reoperation: 12.001% CAD: No Is intended procedure a CABG: No - is a beta jimmy ordered? No - reason: no documented CAD H & P completed: Yes PA/LAT: will need prior to surg CT: completed MRI:brain Completed LE US: N/A Cath: No Echo:Completed EKG: Completed EF %: 54% PI's: N/A Carotid: MRA of carotid: Completed Mapping: N/A Dental: Completed s/p extractions 12/2014 PFT's: N/A Recent Labs 01/30/15 0026 WBC 4.72 HB 9.9* HCT 30.4* PLT 185 INR 1.0 CREAT 0.75 UA: Normal HCG:N/A ABO/ABO Confirmed: Yes Blood ordered: Yes SA Swab: Yes - results: Negative Last Dose of Anticoagulation: heparin Op Note: Yes for surgery on 2009 Pacemaker Check: N/A Consults: ID, hematology DM: No Cardiac Surgical prep: Yes SIGNATURE: iGnette Luna CNP DATE of SERVICE: 01/30/2015 TIME of SERVICE: 4:19 PM Teri Gates CNP February 08, 2015 2:20 PM Pain 01/29/2015 05/28/2020 Overview: ,date--> increased narc dose for more optimal pain management. Endocarditis 01/29/2015 07/02/2017 Overview: History: January 29, 2015--> TTE completed--> continued changes c/w endocarditis on bicuspid aortic valve, similar to that seen on SABRA completed on 01/03/15. 01/30 cultures remain negative Assessment: WBC's WNL, afebrile Plan: Per ID: continue doxycline 100 mg po for possible Bartonella will review pathology of explanted valve with Dr Serrano when ready sequencing for Bartonella pending Stroke (cerebrum) 01/27/2015 01/03/2021 Overview: January 28, 2015--> likely cardioembolic. Following cardiology recs re: echo technque required for otpimal medcial dec. making wrt management/storke prevention. 01/30 as above January 31, 2015--> spoke to CTS staff who resuested a ntoe from stroke about recommended timing on Valve repalcement surgery, given his recent infarct. Also requested c/s from Hematology re: periop/intraop management of his primary coagulopathy. He also indicated that Mr. Harrington will need to undergo a SABRA and conv angio just prior to surgery, but alba snot need either study at this time. 07/29/17 Followed with [facility] Last Assessment & Plan: Secondary to I.E -Symptoms stable -Continue speech exercises Seizure 01/27/2015 09/23/2015 Overview: AEDs: fosPHT and keppra January 28, 2015--> remains seizure free on PHTN and keppar. PHTN level 1.4 yday. continuing serial PHTN levels to confirm optimal. January 29, 2015--> switchiing to oral keppra. Fospheny stopped -continue on Keppra. DVT prophylaxis 01/02/2015 01/03/2021 Overview: Ambulatory SCDS No chemoprophylactic due to hemorrhage Congenital bicuspid aortic valve 01/02/2015 05/28/2020 Overview: Monitor: pt will follow outpatient. Infective endocarditis of aortic valve 5 01/03/2021 Overview: History: Large vegetation on the [place] bicuspid aortic valve. 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 Was initially being medically managed w/ ceftriaxone/doxycline due to high surgical risk: redo status, hemophilia, spontaneous intracranial bleeds. Assessment: 09/19/2015 Reop: AVR #27 CE, Ascending aortic root replacement with composite graft including #32 Per ID note: Difficult to know exactly what the echodensities represent. His history does not robustly support a diagnosis of IE and GN may also be associated with Bartonella IE. He has been treated appropriately with antibiotics for Bartonella. Plan: Per ID recommendations: -continue oral 100 mg po for possible Bartonella -will review pathology of explanted valve with Dr Park today but report no evidence for IE -sequencing for Bartonella pending ( will plan on oral doxcycline until l results back) -no need for CoPAT Spoke to ID: ID will follow up on OR results, ok to discharge pt on doxycycline 100mg q 12 hrs Elevated blood pressure (not hypertension) 12/3105/28/2020 Overview: sBP < 140 sBP 110-130 Continue to monitor МАРИНА (acute kidney injury) 07/24/20142020 Overview: Creat 2.11 Nephrology recs appreciated Na 137 ICH (intracerebral hemorrhage) 07/17/2014 0 05/28/2020 Overview: History: R occipital ICH/IVH 07/17/14 s/p R temporal crani for evacuation. R frontal ICH/IVH 12/2014 s/p R frontal crani and hematoma evacuation; Cerebral angiogram was negative for aneurysm or AVM - Embolic L MCA (M1) territory stroke in 01/2015 Assessment: AXOx3, mild aphasia, right hemianopsia Plan: speech and OT consult Last Assessment & Plan: R occipital ICH/IVH 07/17/14 s/p R temporal crani for evacuation. R frontal ICH/IVH 12/2014 s/p R frontal crani and hematoma evacuation -Cerebral angiogram was negative for aneurysm or AVM -Symptoms are stable Acute respiratory failure 07/17/20142014 Overview: Patient intubated for surgery. 07/18 extubated post surgery. Chronic pain disorder 07/02/2012 07/02/2012 Overview: L arm pain, on percocet at home No with some distal L arm pain in distal radial distribution Plan: -Percolone q3, ?transition to long acting -Colace Aortic aneurysm without rupture 06/29/2012 06/30/2017 Overview: -MRI/MRA chest which revealed a slight interval increase in the size of the aneurysmal aortic root now measuring 5.2 cm (previously measuring 4.9 cm). No evidence of dissection. -HD stable, SBP: 111-131 Plan: -BP control -F/u CTS recs to confirm no intervention necessary -If no intervention necessary, likely d/c home soon given that there is no dissection Hyponatremia 12/12/2009 12/16/2009 Overview: Sodium WNL with aggressive diuresis. Was Likely dilutional etiology. Cont & taper diuretic. / Nonspecific T wave inversion. 12/12/2009 Overview: Patient's EKG notable for T wave inversion in leads II, III, aVf a well as the anterior leads upon admission to [facility] 12/12 which was a change from baseline EKG 12/09. Patient denies CP and other subjective complaints/changes. Cardiac enzymes sent -CK & MB elevated & troponin near baseline. Will cont to check serial Ambrose. D/W Dr. Arce - no other intevention at this time. / Leucocytosis 12/11/2009 12/12/2009 Overview: 12/11 - Afebrile. Conitnue daily monitoring Acute renal insufficiency 12/11/20092009 Overview: Post-op pre-renal bump in Cr to 1.47 12/11. Has since trended down with less aggressive diuresis. Cont with currect diuretic regimen as patient is fluid/volume overloaded. / Acute blood loss anemia 12/11/2009 07/02/19 13 Overview: H/H remains stable today, 12/17. Demonstrated inc CT output 12/11 & was given protamine. Subsequently had drop in H/H to 6.6/19.1 & was transfused 1U PRBC on 12/12 & 2U PRBC 12/13. CT shows small loculated pericardial effuision - confirmed with TTE. Hematology following for factor VIII replacement Rx. / Acute Pulmonary Edema/Fluid overload. 12/11/2009 07/02/2012 Overview: Weight remains below pre-op. Cont PEP/C&DB/OOB/Ambulate. 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 He will subsequently receive 7,364 units (6,750 units +/- 10%) q 12 hours. Check a factor 8 assay level s/p 3 doses ( 12/10 at 1700) Given at 07:25 AM today. Primary service would like to transfuse 2 units FFP in the unit 12/10: Factor VIII assay on 12/10 normal.PTT high,PT normal.CT output minimal.await hematology regarding factor VIII therapy. Preop testing 12/02/2009 12/10/2009 Overview: Blank means still needed; x means completed; NA means not applicable Surgeon: _BWL___ Surgeon Visit: _X_ Informed Consent Completed: _X__ STS Score: unsupp CAD Yes/No __no__ Is intended procedure an Isolated CABG yes/no ___no___ If yes, is a beta jimmy ordered preop If no, why H & P: __x__ PA/LAT __x__ CXR: _x___ EKG: _x___ CT __x__ MRI ____ LE US ____ LHC: __NA___ Reviewed, yes or no _NA__ RHC _NA____ Echo: __x__ EF %: _55_ Labs:CBC x____ CMP __x__Creatinine __x__ PT/PTT __x__ INR ___x_ UA __x___ SA Swab __x___ Last Dose of Plavix PI's (R)____ (L) Carotid: __x__ Mapping: ____ Dental: __x__ PFT's: Op Note: ____ Pacemaker Check: ABO/ABO Confirmed/Blood ordered: __x___ Consults: DM: Cardiac Surgical prep: Congenital factor VIII disorder 09/02/2009 07/02/2017 Overview: PMHx: Hemophilia, 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 At home on 6400U Recombinate. Patient has been following with Dr. Lyons Plan: -Hematology consult - Continue Recombinate as scheduled -Monitor PT/PTT -IPCs documented as of this encounter (statuses as of 05/27/2022) [facility]2019 History of Past illness Narrative* Problem Noted Date Resolved Date Cerebrovascular accident (CV A) due to embolism of left carotid artery 01/18/2019 01/03/2021 Recurrent major depression in partial remission 01/18/2019 01/03/2021 Expressive aphasia 07/01/2017 01/03/2021 Overview: Following Left frontal region of MCA: resultant expressive aphasia. Last Assessment & Plan: Moderate aphasia -Continue speech exercises Lung nodule 09/28/2015 05/28/2020 Overview: Assessment: Cardiac chest CT scan 09/10/2015 reported Stable 5 mm calcified nodule right upper lobe. Based on current guidelines*, a repeat follow-up unenhanced low-dose CT can be obtained in 12 months at clinical discretion. Plan: Pt is aware, follow up w/ local MD. Tooth decay 09/26/2015 05/28/2020 Overview: History: Preop dental evaluation revealed gross decay and chronic abscess of tooth #2 Assessment: Dental recommended extraction of tooth #2. Plan: After clearance from ID, CTS, Hematology, pt underwent extraction #2 on 5/6/16. Continue amicar x 1 more dose today per Hematology. Seizure 09/26/2015 05/28/2020 Overview: History: H/o seizures, on keppra preop Assessment: 09/20/15 post op seizure in ICU. No further events Plan: Continue keppra. Follow up w/ Neurology after discharge. Last Assessment & Plan: Post stroke epilepsy -Continue Keppra 750mg twice daily -Medication compliance encouraged Atelectasis 09/20/2015 05/28/2020 Overview: History: CXR 09/26: Small pleural effusions have near completely resolved. Improvement of by basilar atelectatic changes .No pneumothorax Assessment: Wt is well below preop, on room air Plan: Encourage ambulation, C&DB, PEP. Stop lasix. Stress hyperglycemia 09/20/2015 09/23/2015 Overview: No h/o DM A/P: SSI. Hypovolemia 09/19/2015 09/24/2015 Overview: Post-op fluid shifts A/P: IVF resuscitation as needed. Essential hypertension 09/19/2015 Overview: History: no meds pre-op Assessment: SBP controlled Plan: continue metoprolol (changed to toprol XL), lisinopril. Follow up locally Last Assessment & Plan: Follow up with PCP Refill for Metoprolol provided Well controlled today. Severe aortic regurgitation 09/09/201512/22 Overview: History: 4+ AR Assessment: 09/19/2015 Reop: AVR #27 CE, Ascending aortic root replacement with composite graft including #32 gelweave graft Surgical Pathology: A. Aortic valve, excision - Bicuspid aortic valve with severe calcification and severe fibrosis (gross diagnosis only). B. Ascending aorta and Hemashield graft, excision - Chronic dissection. Plan: ASA daily. Postop echo 09/24/15: - No AR. The peak gradient is 22 mmHg, the mean gradient is 14 mmHg - EF = 35 5% - The right ventricle is normal in size. Right ventricular systolic function is normal. Intracranial hemorrhage 09/09/2015 06/11/19 Overview: History: R occipital ICH/IVH 06/2014 s/p R temporal crani for evacuation. R frontal ICH/IVH 12/2014 s/p R frontal crani and hematoma evacuation. ; Cerebral angiogram was negative for aneurysm or AVM. Evaluated by Neurology preop: Pt has residual deficits from prior neurological insults-- mild expressive aphasia and dysarthria, slight decrease in sensation Right upper arm- chronic. Repeat MRI/MRA of brain completed preop 09/13/15 demonstrates no evidence of acute infarct, chronic stable infarcts previously described involving the L MCA territory Assessment: No acute issues. Stable post op Plan: Follow up as previously directed. Last Assessment & Plan: Assessment: H/O ICH x 2 s/p R temporal craniotomy (06/2014) and R frontal craniotomy (12/2014). Post-op pain 09/09/2015 05/28/2020 Overview: History: Pre-op h/o back pain treated w/ oxycodone 20mg q 6hrs prn and MS contin 30mg tid. MRI 09/08 no evidence of discitis or osteomyelitis. Assessment: Verbalizes adequate pain relief on preop regimen. Plan: Continue Tylenol, lidoderm, and preop regimen of Oxycodone 20mg q 6hrs prn and MS Contin 30mg tid Preop testing 01/30/2015 09/23/2015 Overview: Images from the original note were not included. [facility] PRE[facility] Surgeon: Emmanuel Wang M.D. Informed Consent Completed: No STS Score: AV Replacement Risk of Mortality: 2.61% Morbidity or Mortality: 29.84% Long Length of Stay: 16.325% Short Length of Stay: 15.915% Permanent Stroke: 2.899% Prolonged Ventilation: 22.329% DSW Infection: 0.168% Renal Failure: 5.656% Reoperation: 12.001% CAD: No Is intended procedure a CABG: No - is a beta jimmy ordered? No - reason: no documented CAD H & P completed: Yes PA/LAT: will need prior to surg CT: completed MRI:brain Completed LE US: N/A Cath: No Echo:Completed EKG: Completed EF %: 54% PI's: N/A Carotid: MRA of carotid: Completed Mapping: N/A Dental: Completed s/p extractions 12/2014 PFT's: N/A Recent Labs 01/30/15 0026 WBC 4.72 HB 9.9* HCT 30.4* PLT 185 INR 1.0 CREAT 0.75 UA: Normal HCG:N/A ABO/ABO Confirmed: Yes Blood ordered: Yes SA Swab: Yes - results: Negative Last Dose of Anticoagulation: heparin Op Note: Yes for surgery on 2009 Pacemaker Check: N/A Consults: ID, hematology DM: No Cardiac Surgical prep: Yes SIGNATURE: Ginette Luna CNP DATE of SERVICE: 01/30/2015 TIME of SERVICE: 4:19 PM Teri Gates CNP February 08, 2015 2:20 PM Pain 01/29/2015 05/28/2020 Overview: ,date--> increased narc dose for more optimal pain management. Endocarditis 01/29/2015 07/02/2017 Overview: History: January 29, 2015--> TTE completed--> continued changes c/w endocarditis on bicuspid aortic valve, similar to that seen on SABRA completed on 01/03/15. 01/30 cultures remain negative Assessment: WBC's WNL, afebrile Plan: Per ID: continue doxycline 100 mg po for possible Bartonella will review pathology of explanted valve with Dr Serrano when ready sequencing for Bartonella pending Stroke (cerebrum) 01/27/2015 01/03/2021 Overview: January 28, 2015--> likely cardioembolic. Following cardiology recs re: echo technque required for otpimal medcial dec. making wrt management/storke prevention. 01/30 as above January 31, 2015--> spoke to CTS staff who resuested a ntoe from stroke about recommended timing on Valve repalcement surgery, given his recent infarct. Also requested c/s from Hematology re: periop/intraop management of his primary coagulopathy. He also indicated that Mr. Harrington will need to undergo a SABRA and conv angio just prior to surgery, but alba snot need either study at this time. 07/29/17 Followed with [facility] Last Assessment & Plan: Secondary to I.E -Symptoms stable -Continue speech exercises Seizure 01/27/2015 09/23/2015 Overview: AEDs: fosPHT and keppra January 28, 2015--> remains seizure free on PHTN and keppar. PHTN level 1.4 yday. continuing serial PHTN levels to confirm optimal. January 29, 2015--> switchiing to oral keppra. Fospheny stopped -continue on Keppra. DVT prophylaxis 01/02/2015 01/03/2021 Overview: Ambulatory SCDS No chemoprophylactic due to hemorrhage Congenital bicuspid aortic valve 01/02/2015 05/28/2020 Overview: Monitor: pt will follow outpatient. Infective endocarditis of aortic valve 5 01/03/2021 Overview: History: Large vegetation on the [place] bicuspid aortic valve. 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 Was initially being medically managed w/ ceftriaxone/doxycline due to high surgical risk: redo status, hemophilia, spontaneous intracranial bleeds. Assessment: 09/19/2015 Reop: AVR #27 CE, Ascending aortic root replacement with composite graft including #32 Per ID note: Difficult to know exactly what the echodensities represent. His history does not robustly support a diagnosis of IE and GN may also be associated with Bartonella IE. He has been treated appropriately with antibiotics for Bartonella. Plan: Per ID recommendations: -continue oral 100 mg po for possible Bartonella -will review pathology of explanted valve with Dr Park today but report no evidence for IE -sequencing for Bartonella pending ( will plan on oral doxcycline until l results back) -no need for CoPAT Spoke to ID: ID will follow up on OR results, ok to discharge pt on doxycycline 100mg q 12 hrs Elevated blood pressure (not hypertension) 12/3105/28/2020 Overview: sBP < 140 sBP 110-130 Continue to monitor МАРИНА (acute kidney injury) 07/24/20142020 Overview: Creat 2.11 Nephrology recs appreciated Na 137 ICH (intracerebral hemorrhage) 07/17/2014 0 05/28/2020 Overview: History: R occipital ICH/IVH 07/17/14 s/p R temporal crani for evacuation. R frontal ICH/IVH 12/2014 s/p R frontal crani and hematoma evacuation; Cerebral angiogram was negative for aneurysm or AVM - Embolic L MCA (M1) territory stroke in 01/2015 Assessment: AXOx3, mild aphasia, right hemianopsia Plan: speech and OT consult Last Assessment & Plan: R occipital ICH/IVH 07/17/14 s/p R temporal crani for evacuation. R frontal ICH/IVH 12/2014 s/p R frontal crani and hematoma evacuation -Cerebral angiogram was negative for aneurysm or AVM -Symptoms are stable Acute respiratory failure 07/17/20142014 Overview: Patient intubated for surgery. 07/18 extubated post surgery. Chronic pain disorder 07/02/2012 07/02/2012 Overview: L arm pain, on percocet at home No with some distal L arm pain in distal radial distribution Plan: -Percolone q3, ?transition to long acting -Colace Aortic aneurysm without rupture 06/29/2012 06/30/2017 Overview: -MRI/MRA chest which revealed a slight interval increase in the size of the aneurysmal aortic root now measuring 5.2 cm (previously measuring 4.9 cm). No evidence of dissection. -HD stable, SBP: 111-131 Plan: -BP control -F/u CTS recs to confirm no intervention necessary -If no intervention necessary, likely d/c home soon given that there is no dissection Hyponatremia 12/12/2009 12/16/2009 Overview: Sodium WNL with aggressive diuresis. Was Likely dilutional etiology. Cont & taper diuretic. / Nonspecific T wave inversion. 12/12/2009 Overview: Patient's EKG notable for T wave inversion in leads II, III, aVf a well as the anterior leads upon admission to [facility] 12/12 which was a change from baseline EKG 12/09. Patient denies CP and other subjective complaints/changes. Cardiac enzymes sent -CK & MB elevated & troponin near baseline. Will cont to check serial Ambrose. D/W Dr. Arce - no other intevention at this time. / Leucocytosis 12/11/2009 12/12/2009 Overview: 12/11 - Afebrile. Conitnue daily monitoring Acute renal insufficiency 12/11/20092009 Overview: Post-op pre-renal bump in Cr to 1.47 12/11. Has since trended down with less aggressive diuresis. Cont with currect diuretic regimen as patient is fluid/volume overloaded. / Acute blood loss anemia 12/11/2009 07/02/19 13 Overview: H/H remains stable today, 12/17. Demonstrated inc CT output 12/11 & was given protamine. Subsequently had drop in H/H to 6.6/19.1 & was transfused 1U PRBC on 12/12 & 2U PRBC 12/13. CT shows small loculated pericardial effuision - confirmed with TTE. Hematology following for factor VIII replacement Rx. / Acute Pulmonary Edema/Fluid overload. 12/11/2009 07/02/2012 Overview: Weight remains below pre-op. Cont PEP/C&DB/OOB/Ambulate. 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 He will subsequently receive 7,364 units (6,750 units +/- 10%) q 12 hours. Check a factor 8 assay level s/p 3 doses ( 12/10 at 1700) Given at 07:25 AM today. Primary service would like to transfuse 2 units FFP in the unit 12/10: Factor VIII assay on 12/10 normal.PTT high,PT normal.CT output minimal.await hematology regarding factor VIII therapy. Preop testing 12/02/2009 12/10/2009 Overview: Blank means still needed; x means completed; NA means not applicable Surgeon: _BWL___ Surgeon Visit: _X_ Informed Consent Completed: _X__ STS Score: unsupp CAD Yes/No __no__ Is intended procedure an Isolated CABG yes/no ___no___ If yes, is a beta jimmy ordered preop If no, why H & P: __x__ PA/LAT __x__ CXR: _x___ EKG: _x___ CT __x__ MRI ____ LE US ____ LHC: __NA___ Reviewed, yes or no _NA__ RHC _NA____ Echo: __x__ EF %: _55_ Labs:CBC x____ CMP __x__Creatinine __x__ PT/PTT __x__ INR ___x_ UA __x___ SA Swab __x___ Last Dose of Plavix PI's (R)____ (L) Carotid: __x__ Mapping: ____ Dental: __x__ PFT's: Op Note: ____ Pacemaker Check: ABO/ABO Confirmed/Blood ordered: __x___ Consults: DM: Cardiac Surgical prep: Congenital factor VIII disorder 09/02/2009 07/02/2017 Overview: PMHx: Hemophilia, 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 At home on 6400U Recombinate. Patient has been following with Dr. Lyons Plan: -Hematology consult - Continue Recombinate as scheduled -Monitor PT/PTT -IPCs documented as of this encounter (statuses as of 06/12/2022) [facility] History of Past illness Narrative* Problem Noted Date Resolved Date Cerebrovascular accident (CV A) due to embolism of left carotid artery 01/18/2019 01/03/2021 Recurrent major depression in partial remission 01/18/2019 01/03/2021 Expressive aphasia 07/01/2017 01/03/2021 Overview: Following Left frontal region of MCA: resultant expressive aphasia. Last Assessment & Plan: Moderate aphasia -Continue speech exercises Lung nodule 09/28/2015 05/28/2020 Overview: Assessment: Cardiac chest CT scan 09/10/2015 reported Stable 5 mm calcified nodule right upper lobe. Based on current guidelines*, a repeat follow-up unenhanced low-dose CT can be obtained in 12 months at clinical discretion. Plan: Pt is aware, follow up w/ local MD. Tooth decay 09/26/2015 05/28/2020 Overview: History: Preop dental evaluation revealed gross decay and chronic abscess of tooth #2 Assessment: Dental recommended extraction of tooth #2. Plan: After clearance from ID, CTS, Hematology, pt underwent extraction #2 on 09/27/15. Continue amicar x 1 more dose today per Hematology. Seizure 09/26/2015 05/28/2020 Overview: History: H/o seizures, on keppra preop Assessment: 09/20/15 post op seizure in ICU. No further events Plan: Continue keppra. Follow up w/ Neurology after discharge. Last Assessment & Plan: Post stroke epilepsy -Continue Keppra 750mg twice daily -Medication compliance encouraged Atelectasis 09/20/2015 05/28/2020 Overview: History: CXR 09/26: Small pleural effusions have near completely resolved. Improvement of by basilar atelectatic changes .No pneumothorax Assessment: Wt is well below preop, on room air Plan: Encourage ambulation, C&DB, PEP. Stop lasix. Stress hyperglycemia 09/20/2015 09/23/2015 Overview: No h/o DM A/P: SSI. Hypovolemia 09/19/2015 09/24/2015 Overview: Post-op fluid shifts A/P: IVF resuscitation as needed. Essential hypertension 09/19/2015 Overview: History: no meds pre-op Assessment: SBP controlled Plan: continue metoprolol (changed to toprol XL), lisinopril. Follow up locally Last Assessment & Plan: Follow up with PCP Refill for Metoprolol provided Well controlled today. Severe aortic regurgitation 09/09/201512/22 Overview: History: 4+ AR Assessment: 09/19/2015 Reop: AVR #27 CE, Ascending aortic root replacement with composite graft including #32 gelweave graft Surgical Pathology: A. Aortic valve, excision - Bicuspid aortic valve with severe calcification and severe fibrosis (gross diagnosis only). B. Ascending aorta and Hemashield graft, excision - Chronic dissection. Plan: ASA daily. Postop echo 09/24/15: - No AR. The peak gradient is 22 mmHg, the mean gradient is 14 mmHg - EF = 35 5% - The right ventricle is normal in size. Right ventricular systolic function is normal. Intracranial hemorrhage 09/09/2015 06/11/19 Overview: History: R occipital ICH/IVH 06/2014 s/p R temporal crani for evacuation. R frontal ICH/IVH 12/2014 s/p R frontal crani and hematoma evacuation. ; Cerebral angiogram was negative for aneurysm or AVM. Evaluated by Neurology preop: Pt has residual deficits from prior neurological insults-- mild expressive aphasia and dysarthria, slight decrease in sensation Right upper arm- chronic. Repeat MRI/MRA of brain completed preop 09/13/15 demonstrates no evidence of acute infarct, chronic stable infarcts previously described involving the L MCA territory Assessment: No acute issues. Stable post op Plan: Follow up as previously directed. Last Assessment & Plan: Assessment: H/O ICH x 2 s/p R temporal craniotomy (06/2014) and R frontal craniotomy (12/2014). Post-op pain 09/09/2015 05/28/2020 Overview: History: Pre-op h/o back pain treated w/ oxycodone 20mg q 6hrs prn and MS contin 30mg tid. MRI 09/08 no evidence of discitis or osteomyelitis. Assessment: Verbalizes adequate pain relief on preop regimen. Plan: Continue Tylenol, lidoderm, and preop regimen of Oxycodone 20mg q 6hrs prn and MS Contin 30mg tid Preop testing 01/30/2015 09/23/2015 Overview: Images from the original note were not included. [facility] PRE[facility] Surgeon: Emmanuel Wang M.D. Informed Consent Completed: No STS Score: AV Replacement Risk of Mortality: 2.61% Morbidity or Mortality: 29.84% Long Length of Stay: 16.325% Short Length of Stay: 15.915% Permanent Stroke: 2.899% Prolonged Ventilation: 22.329% DSW Infection: 0.168% Renal Failure: 5.656% Reoperation: 12.001% CAD: No Is intended procedure a CABG: No - is a beta jimmy ordered? No - reason: no documented CAD H & P completed: Yes PA/LAT: will need prior to surg CT: completed MRI:brain Completed LE US: N/A Cath: No Echo:Completed EKG: Completed EF %: 54% PI's: N/A Carotid: MRA of carotid: Completed Mapping: N/A Dental: Completed s/p extractions 12/2014 PFT's: N/A Recent Labs 01/30/15 0026 WBC 4.72 HB 9.9* HCT 30.4* PLT 185 INR 1.0 CREAT 0.75 UA: Normal HCG:N/A ABO/ABO Confirmed: Yes Blood ordered: Yes SA Swab: Yes - results: Negative Last Dose of Anticoagulation: heparin Op Note: Yes for surgery on 2009 Pacemaker Check: N/A Consults: ID, hematology DM: No Cardiac Surgical prep: Yes SIGNATURE: Ginette Luna CNP DATE of SERVICE: 01/30/2015 TIME of SERVICE: 4:19 PM Teri Gates CNP February 08, 2015 2:20 PM Pain 01/29/2015 05/28/2020 Overview: ,date--> increased narc dose for more optimal pain management. Endocarditis 01/29/2015 07/02/2017 Overview: History: January 29, 2015--> TTE completed--> continued changes c/w endocarditis on bicuspid aortic valve, similar to that seen on SABRA completed on 01/03/15. 01/30 cultures remain negative Assessment: WBC's WNL, afebrile Plan: Per ID: continue doxycline 100 mg po for possible Bartonella will review pathology of explanted valve with Dr Serrano when ready sequencing for Bartonella pending Stroke (cerebrum) 01/27/2015 01/03/2021 Overview: January 28, 2015--> likely cardioembolic. Following cardiology recs re: echo technque required for otpimal medcial dec. making wrt management/storke prevention. 01/30 as above January 31, 2015--> spoke to CTS staff who resuested a ntoe from stroke about recommended timing on Valve repalcement surgery, given his recent infarct. Also requested c/s from Hematology re: periop/intraop management of his primary coagulopathy. He also indicated that Mr. Harrington will need to undergo a SABRA and conv angio just prior to surgery, but alba snot need either study at this time. 07/29/17 Followed with [facility] -[facility] Last Assessment & Plan: Secondary to I.E -Symptoms stable -Continue speech exercises Seizure 01/27/2015 09/23/2015 Overview: AEDs: fosPHT and keppra January 28, 2015--> remains seizure free on PHTN and keppar. PHTN level 1.4 yday. continuing serial PHTN levels to confirm optimal. January 29, 2015--> switchiing to oral keppra. Fospheny stopped -continue on Keppra. DVT prophylaxis 01/02/2015 01/03/2021 Overview: Ambulatory SCDS No chemoprophylactic due to hemorrhage Congenital bicuspid aortic valve 01/02/2015 05/28/2020 Overview: Monitor: pt will follow outpatient. Infective endocarditis of aortic valve 5 01/03/2021 Overview: History: Large vegetation on the [place] bicuspid aortic valve. 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 Was initially being medically managed w/ ceftriaxone/doxycline due to high surgical risk: redo status, hemophilia, spontaneous intracranial bleeds. Assessment: 09/19/2015 Reop: AVR #27 CE, Ascending aortic root replacement with composite graft including #32 Per ID note: Difficult to know exactly what the echodensities represent. His history does not robustly support a diagnosis of IE and GN may also be associated with Bartonella IE. He has been treated appropriately with antibiotics for Bartonella. Plan: Per ID recommendations: -continue oral 100 mg po for possible Bartonella -will review pathology of explanted valve with Dr Park today but report no evidence for IE -sequencing for Bartonella pending ( will plan on oral doxcycline until l results back) -no need for CoPAT Spoke to ID: ID will follow up on OR results, ok to discharge pt on doxycycline 100mg q 12 hrs Elevated blood pressure (not hypertension) 12/3105/28/2020 Overview: sBP < 140 sBP 110-130 Continue to monitor МАРИНА (acute kidney injury) 07/24/20142020 Overview: Creat 2.11 Nephrology recs appreciated Na 137 ICH (intracerebral hemorrhage) 07/17/2014 0 05/28/2020 Overview: History: R occipital ICH/IVH 07/17/14 s/p R temporal crani for evacuation. R frontal ICH/IVH 12/2014 s/p R frontal crani and hematoma evacuation; Cerebral angiogram was negative for aneurysm or AVM - Embolic L MCA (M1) territory stroke in 01/2015 Assessment: AXOx3, mild aphasia, right hemianopsia Plan: speech and OT consult Last Assessment & Plan: R occipital ICH/IVH 07/17/14 s/p R temporal crani for evacuation. R frontal ICH/IVH 12/2014 s/p R frontal crani and hematoma evacuation -Cerebral angiogram was negative for aneurysm or AVM -Symptoms are stable Acute respiratory failure 07/17/20142014 Overview: Patient intubated for surgery. 07/18 extubated post surgery. Chronic pain disorder 07/02/2012 07/02/2012 Overview: L arm pain, on percocet at home No with some distal L arm pain in distal radial distribution Plan: -Percolone q3, ?transition to long acting -Colace Aortic aneurysm without rupture 06/29/2012 06/30/2017 Overview: -MRI/MRA chest which revealed a slight interval increase in the size of the aneurysmal aortic root now measuring 5.2 cm (previously measuring 4.9 cm). No evidence of dissection. -HD stable, SBP: 111-131 Plan: -BP control -F/u CTS recs to confirm no intervention necessary -If no intervention necessary, likely d/c home soon given that there is no dissection Hyponatremia 12/12/2009 12/16/2009 Overview: Sodium WNL with aggressive diuresis. Was Likely dilutional etiology. Cont & taper diuretic. / Nonspecific T wave inversion. 12/12/2009 Overview: Patient's EKG notable for T wave inversion in leads II, III, aVf a well as the anterior leads upon admission to [facility] 12/12 which was a change from baseline EKG 12/09. Patient denies CP and other subjective complaints/changes. Cardiac enzymes sent -CK & MB elevated & troponin near baseline. Will cont to check serial Ambrose. D/W Dr. Arce - no other intevention at this time. / Leucocytosis 12/11/2009 12/12/2009 Overview: 12/11 - Afebrile. Conitnue daily monitoring Acute renal insufficiency 12/11/20092009 Overview: Post-op pre-renal bump in Cr to 1.47 12/11. Has since trended down with less aggressive diuresis. Cont with currect diuretic regimen as patient is fluid/volume overloaded. / Acute blood loss anemia 12/11/2009 07/02/19 13 Overview: H/H remains stable today, 12/17. Demonstrated inc CT output 12/11 & was given protamine. Subsequently had drop in H/H to 6.6/19.1 & was transfused 1U PRBC on 12/12 & 2U PRBC 12/13. CT shows small loculated pericardial effuision - confirmed with TTE. Hematology following for factor VIII replacement Rx. / Acute Pulmonary Edema/Fluid overload. 12/11/2009 07/02/2012 Overview: Weight remains below pre-op. Cont PEP/C&DB/OOB/Ambulate. 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 He will subsequently receive 7,364 units (6,750 units +/- 10%) q 12 hours. Check a factor 8 assay level s/p 3 doses ( 12/10 at 1700) Given at 07:25 AM today. Primary service would like to transfuse 2 units FFP in the unit 12/10 -: Factor VIII assay on 12/10 normal.PTT high,PT normal.CT output minimal.await hematology regarding factor VIII therapy. Preop testing 12/02/2009 12/10/2009 Overview: Blank means still needed; x means completed; NA means not applicable Surgeon: _JERAMIE___ Surgeon Visit: _X_ Informed Consent Completed: _X__ STS Score: unsupp CAD Yes/No __no__ Is intended procedure an Isolated CABG yes/no ___no___ If yes, is a beta jimmy ordered preop If no, why H & P: __x__ PA/LAT __x__ CXR: _x___ EKG: _x___ CT __x__ MRI ____ LE US ____ LHC: __NA___ Reviewed, yes or no _NA__ RHC _NA____ Echo: __x__ EF %: _55_ Labs:CBC x____ CMP __x__Creatinine __x__ PT/PTT __x__ INR ___x_ UA __x___ SA Swab __x___ Last Dose of Plavix PI's (R)____ (L) Carotid: __x__ Mapping: ____ Dental: __x__ PFT's: Op Note: ____ Pacemaker Check: ABO/ABO Confirmed/Blood ordered: __x___ Consults: DM: Cardiac Surgical prep: Congenital factor VIII disorder 09/02/2009 07/02/2017 Overview: PMHx: Hemophilia, 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 At home on 6400U Recombinate. Patient has been following with Dr. Lyons Plan: -Hematology consult - Continue Recombinate as scheduled -Monitor PT/PTT -IPCs Substance abuse in remission Last Assessment & Plan: Assessment: POA PLAN: Unsure of current treatment documented as of this encounter (statuses as of 06/24/2022) [facility]2019 History of Past illness Narrative* Problem Noted Date Resolved Date Cerebrovascular accident (CV A) due to embolism of left carotid artery 01/18/2019 01/03/2021 Recurrent major depression in partial remission 01/18/2019 01/03/2021 Expressive aphasia 07/01/2017 01/03/2021 Overview: Following Left frontal region of MCA: resultant expressive aphasia. Last Assessment & Plan: Moderate aphasia -Continue speech exercises Lung nodule 09/28/2015 05/28/2020 Overview: Assessment: Cardiac chest CT scan 09/10/2015 reported Stable 5 mm calcified nodule right upper lobe. Based on current guidelines*, a repeat follow-up unenhanced low-dose CT can be obtained in 12 months at clinical discretion. Plan: Pt is aware, follow up w/ local MD. Tooth decay 09/26/2015 05/28/2020 Overview: History: Preop dental evaluation revealed gross decay and chronic abscess of tooth #2 Assessment: Dental recommended extraction of tooth #2. Plan: After clearance from ID, CTS, Hematology, pt underwent extraction #2 on 09/27/15. Continue amicar x 1 more dose today per Hematology. Seizure 09/26/2015 05/28/2020 Overview: History: H/o seizures, on keppra preop Assessment: 09/20/15 post op seizure in ICU. No further events Plan: Continue keppra. Follow up w/ Neurology after discharge. Last Assessment & Plan: Post stroke epilepsy -Continue Keppra 750mg twice daily -Medication compliance encouraged Atelectasis 09/20/2015 05/28/2020 Overview: History: CXR 09/26: Small pleural effusions have near completely resolved. Improvement of by basilar atelectatic changes .No pneumothorax Assessment: Wt is well below preop, on room air Plan: Encourage ambulation, C&DB, PEP. Stop lasix. Stress hyperglycemia 09/20/2015 09/23/2015 Overview: No h/o DM A/P: SSI. Hypovolemia 09/19/2015 09/24/2015 Overview: Post-op fluid shifts A/P: IVF resuscitation as needed. Essential hypertension 09/19/2015 Overview: History: no meds pre-op Assessment: SBP controlled Plan: continue metoprolol (changed to toprol XL), lisinopril. Follow up locally Last Assessment & Plan: Follow up with PCP Refill for Metoprolol provided Well controlled today. Severe aortic regurgitation 09/09/201512/22 Overview: History: 4+ AR Assessment: 09/19/2015 Reop: AVR #27 CE, Ascending aortic root replacement with composite graft including #32 gelweave graft Surgical Pathology: A. Aortic valve, excision - Bicuspid aortic valve with severe calcification and severe fibrosis (gross diagnosis only). B. Ascending aorta and Hemashield graft, excision - Chronic dissection. Plan: ASA daily. Postop echo 09/24/15: - No AR. The peak gradient is 22 mmHg, the mean gradient is 14 mmHg - EF = 35 5% - The right ventricle is normal in size. Right ventricular systolic function is normal. Intracranial hemorrhage 09/09/2015 06/11/19 Overview: History: R occipital ICH/IVH 06/2014 s/p R temporal crani for evacuation. R frontal ICH/IVH 12/2014 s/p R frontal crani and hematoma evacuation. ; Cerebral angiogram was negative for aneurysm or AVM. Evaluated by Neurology preop: Pt has residual deficits from prior neurological insults-- mild expressive aphasia and dysarthria, slight decrease in sensation Right upper arm- chronic. Repeat MRI/MRA of brain completed preop 09/13/15 demonstrates no evidence of acute infarct, chronic stable infarcts previously described involving the L MCA territory Assessment: No acute issues. Stable post op Plan: Follow up as previously directed. Last Assessment & Plan: Assessment: H/O ICH x 2 s/p R temporal craniotomy (06/2014) and R frontal craniotomy (12/2014). Post-op pain 09/09/2015 05/28/2020 Overview: History: Pre-op h/o back pain treated w/ oxycodone 20mg q 6hrs prn and MS contin 30mg tid. MRI 09/08 no evidence of discitis or osteomyelitis. Assessment: Verbalizes adequate pain relief on preop regimen. Plan: Continue Tylenol, lidoderm, and preop regimen of Oxycodone 20mg q 6hrs prn and MS Contin 30mg tid Preop testing 01/30/2015 09/23/2015 Overview: Images from the original note were not included. [facility] PRE[facility] CHECKLIST Surgeon: Emmanuel Wang M.D. Informed Consent Completed: No STS Score: AV Replacement Risk of Mortality: 2.61% Morbidity or Mortality: 29.84% Long Length of Stay: 16.325% Short Length of Stay: 15.915% Permanent Stroke: 2.899% Prolonged Ventilation: 22.329% DSW Infection: 0.168% Renal Failure: 5.656% Reoperation: 12.001% CAD: No Is intended procedure a CABG: No - is a beta jimmy ordered? No - reason: no documented CAD H & P completed: Yes PA/LAT: will need prior to surg CT: completed MRI:brain Completed LE US: N/A Cath: No Echo:Completed EKG: Completed EF %: 54% PI's: N/A Carotid: MRA of carotid: Completed Mapping: N/A Dental: Completed s/p extractions 12/2014 PFT's: N/A Recent Labs 01/30/15 0026 WBC 4.72 HB 9.9* HCT 30.4* PLT 185 INR 1.0 CREAT 0.75 UA: Normal HCG:N/A ABO/ABO Confirmed: Yes Blood ordered: Yes SA Swab: Yes - results: Negative Last Dose of Anticoagulation: heparin Op Note: Yes for surgery on 2009 Pacemaker Check: N/A Consults: ID, hematology DM: No Cardiac Surgical prep: Yes SIGNATURE: Ginette Luna CNP DATE of SERVICE: 01/30/2015 TIME of SERVICE: 4:19 PM Teri Gates CNP February 08, 2015 2:20 PM Pain 01/29/2015 05/28/2020 Overview: ,date--> increased narc dose for more optimal pain management. Endocarditis 01/29/2015 07/02/2017 Overview: History: January 29, 2015--> TTE completed--> continued changes c/w endocarditis on bicuspid aortic valve, similar to that seen on SABRA completed on 01/03/15. 01/30 cultures remain negative Assessment: WBC's WNL, afebrile Plan: Per ID: continue doxycline 100 mg po for possible Bartonella will review pathology of explanted valve with Dr Serrano when ready sequencing for Bartonella pending Stroke (cerebrum) 01/27/2015 01/03/2021 Overview: January 28, 2015--> likely cardioembolic. Following cardiology recs re: echo technque required for otpimal medcial dec. making wrt management/storke prevention. 01/30 as above January 31, 2015--> spoke to CTS staff who resuested a ntoe from stroke about recommended timing on Valve repalcement surgery, given his recent infarct. Also requested c/s from Hematology re: periop/intraop management of his primary coagulopathy. He also indicated that Mr. Harrington will need to undergo a SABRA and conv angio just prior to surgery, but alba snot need either study at this time. 07/29/17 Followed with [facility] Last Assessment & Plan: Secondary to I.E -Symptoms stable -Continue speech exercises Seizure 01/27/2015 09/23/2015 Overview: AEDs: fosPHT and keppra January 28, 2015--> remains seizure free on PHTN and keppar. PHTN level 1.4 yday. continuing serial PHTN levels to confirm optimal. January 29, 2015--> switchiing to oral keppra. Fospheny stopped -continue on Keppra. DVT prophylaxis 01/02/2015 01/03/2021 Overview: Ambulatory SCDS No chemoprophylactic due to hemorrhage Congenital bicuspid aortic valve 01/02/2015 05/28/2020 Overview: Monitor: pt will follow outpatient. Infective endocarditis of aortic valve 5 01/03/2021 Overview: History: Large vegetation on the [place] bicuspid aortic valve. 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 Was initially being medically managed w/ ceftriaxone/doxycline due to high surgical risk: redo status, hemophilia, spontaneous intracranial bleeds. Assessment: 09/19/2015 Reop: AVR #27 CE, Ascending aortic root replacement with composite graft including #32 Per ID note: Difficult to know exactly what the echodensities represent. His history does not robustly support a diagnosis of IE and GN may also be associated with Bartonella IE. He has been treated appropriately with antibiotics for Bartonella. Plan: Per ID recommendations: -continue oral 100 mg po for possible Bartonella -will review pathology of explanted valve with Dr Park today but report no evidence for IE -sequencing for Bartonella pending ( will plan on oral doxcycline until l results back) -no need for CoPAT Spoke to ID: ID will follow up on OR results, ok to discharge pt on doxycycline 100mg q 12 hrs Elevated blood pressure (not hypertension) 12/3105/28/2020 Overview: sBP < 140 sBP 110-130 Continue to monitor МАРИНА (acute kidney injury) 07/24/20142020 Overview: Creat 2.11 Nephrology recs appreciated Na 137 ICH (intracerebral hemorrhage) 07/17/2014 0 05/28/2020 Overview: History: R occipital ICH/IVH 07/17/14 s/p R temporal crani for evacuation. R frontal ICH/IVH 12/2014 s/p R frontal crani and hematoma evacuation; Cerebral angiogram was negative for aneurysm or AVM - Embolic L MCA (M1) territory stroke in 01/2015 Assessment: AXOx3, mild aphasia, right hemianopsia Plan: speech and OT consult Last Assessment & Plan: R occipital ICH/IVH 07/17/14 s/p R temporal crani for evacuation. R frontal ICH/IVH 12/2014 s/p R frontal crani and hematoma evacuation -Cerebral angiogram was negative for aneurysm or AVM -Symptoms are stable Acute respiratory failure 07/17/20142014 Overview: Patient intubated for surgery. 07/18 extubated post surgery. Chronic pain disorder 07/02/2012 07/02/2012 Overview: L arm pain, on percocet at home No with some distal L arm pain in distal radial distribution Plan: -Percolone q3, ?transition to long acting -Colace Aortic aneurysm without rupture 06/29/2012 06/30/2017 Overview: -MRI/MRA chest which revealed a slight interval increase in the size of the aneurysmal aortic root now measuring 5.2 cm (previously measuring 4.9 cm). No evidence of dissection. -HD stable, SBP: 111-131 Plan: -BP control -F/u CTS recs to confirm no intervention necessary -If no intervention necessary, likely d/c home soon given that there is no dissection Hyponatremia 12/12/2009 12/16/2009 Overview: Sodium WNL with aggressive diuresis. Was Likely dilutional etiology. Cont & taper diuretic. / Nonspecific T wave inversion. 12/12/2009 Overview: Patient's EKG notable for T wave inversion in leads II, III, aVf a well as the anterior leads upon admission to [facility] 12/12 which was a change from baseline EKG 12/09. Patient denies CP and other subjective complaints/changes. Cardiac enzymes sent -CK & MB elevated & troponin near baseline. Will cont to check serial Ambrose. D/W Dr. Arce - no other intevention at this time. / Leucocytosis 12/11/2009 12/12/2009 Overview: 12/11 - Afebrile. Conitnue daily monitoring Acute renal insufficiency 12/11/20092009 Overview: Post-op pre-renal bump in Cr to 1.47 12/11. Has since trended down with less aggressive diuresis. Cont with currect diuretic regimen as patient is fluid/volume overloaded. / Acute blood loss anemia 12/11/2009 07/02/19 13 Overview: H/H remains stable today, 12/17. Demonstrated inc CT output 12/11 & was given protamine. Subsequently had drop in H/H to 6.6/.1 & was transfused 1U PRBC on 12/12 & 2U PRBC 12/13. CT shows small loculated pericardial effuision - confirmed with TTE. Hematology following for factor VIII replacement Rx. / Acute Pulmonary Edema/Fluid overload. 12/11/2009 07/02/2012 Overview: Weight remains below pre-op. Cont PEP/C&DB/OOB/Ambulate. 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 He will subsequently receive 7,364 units (6,750 units +/- 10%) q 12 hours. Check a factor 8 assay level s/p 3 doses ( 12/10 at 1700) Given at 07:25 AM today. Primary service would like to transfuse 2 units FFP in the unit 12/10: Factor VIII assay on 12/10 normal.PTT high,PT normal.CT output minimal.await hematology regarding factor VIII therapy. Preop testing 12/02/2009 12/10/2009 Overview: Blank means still needed; x means completed; NA means not applicable Surgeon: _BWL___ Surgeon Visit: _X_ Informed Consent Completed: _X__ STS Score: unsupp CAD Yes/No __no__ Is intended procedure an Isolated CABG yes/no ___no___ If yes, is a beta jimmy ordered preop If no, why H & P: __x__ PA/LAT __x__ CXR: _x___ EKG: _x___ CT __x__ MRI ____ LE US ____ LHC: __NA___ Reviewed, yes or no _NA__ RHC _NA____ Echo: __x__ EF %: _55_ Labs:CBC x____ CMP __x__Creatinine __x__ PT/PTT __x__ INR ___x_ UA __x___ SA Swab __x___ Last Dose of Plavix PI's (R)____ (L) Carotid: __x__ Mapping: ____ Dental: __x__ PFT's: Op Note: ____ Pacemaker Check: ABO/ABO Confirmed/Blood ordered: __x___ Consults: DM: Cardiac Surgical prep: Congenital factor VIII disorder 09/02/2009 07/02/2017 Overview: PMHx: Hemophilia, 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 At home on 6400U Recombinate. Patient has been following with Dr. Lyons Plan: -Hematology consult - Continue Recombinate as scheduled -Monitor PT/PTT -IPCs Substance abuse in remission Last Assessment & Plan: Assessment: POA PLAN: Unsure of current treatment documented as of this encounter (statuses as of 07/15/2022) [facility] History of Past illness Narrative* Problem Noted Date Resolved Date Cerebrovascular accident (CV A) due to embolism of left carotid artery 01/18/2019 01/03/2021 Recurrent major depression in partial remission 01/18/2019 01/03/2021 Expressive aphasia 07/01/2017 01/03/2021 Overview: Following Left frontal region of MCA: resultant expressive aphasia. Last Assessment & Plan: Moderate aphasia -Continue speech exercises Lung nodule 09/28/2015 05/28/2020 Overview: Assessment: Cardiac chest CT scan 09/10/2015 reported Stable 5 mm calcified nodule right upper lobe. Based on current guidelines*, a repeat follow-up unenhanced low-dose CT can be obtained in 12 months at clinical discretion. Plan: Pt is aware, follow up w/ local MD. Tooth decay 09/26/2015 05/28/2020 Overview: History: Preop dental evaluation revealed gross decay and chronic abscess of tooth #2 Assessment: Dental recommended extraction of tooth #2. Plan: After clearance from ID, CTS, Hematology, pt underwent extraction #2 on 09/27/15. Continue amicar x 1 more dose today per Hematology. Seizure 09/26/2015 05/28/2020 Overview: History: H/o seizures, on keppra preop Assessment: 09/20/15 post op seizure in ICU. No further events Plan: Continue keppra. Follow up w/ Neurology after discharge. Last Assessment & Plan: Post stroke epilepsy -Continue Keppra 750mg twice daily -Medication compliance encouraged Atelectasis 09/20/2015 05/28/2020 Overview: History: CXR 09/26: Small pleural effusions have near completely resolved. Improvement of by basilar atelectatic changes .No pneumothorax Assessment: Wt is well below preop, on room air Plan: Encourage ambulation, C&DB, PEP. Stop lasix. Stress hyperglycemia 09/20/2015 09/23/2015 Overview: No h/o DM A/P: SSI. Hypovolemia 09/19/2015 09/24/2015 Overview: Post-op fluid shifts A/P: IVF resuscitation as needed. Essential hypertension 09/19/2015 Overview: History: no meds pre-op Assessment: SBP controlled Plan: continue metoprolol (changed to toprol XL), lisinopril. Follow up locally Last Assessment & Plan: Follow up with PCP Refill for Metoprolol provided Well controlled today. Severe aortic regurgitation 09/09/201512/22 Overview: History: 4+ AR Assessment: 09/19/2015 Reop: AVR #27 CE, Ascending aortic root replacement with composite graft including #32 gelweave graft Surgical Pathology: A. Aortic valve, excision - Bicuspid aortic valve with severe calcification and severe fibrosis (gross diagnosis only). B. Ascending aorta and Hemashield graft, excision - Chronic dissection. Plan: ASA daily. Postop echo 09/24/15: - No AR. The peak gradient is 22 mmHg, the mean gradient is 14 mmHg - EF = 35 5% - The right ventricle is normal in size. Right ventricular systolic function is normal. Intracranial hemorrhage 09/09/2015 06/11/19 Overview: History: R occipital ICH/IVH 06/2014 s/p R temporal crani for evacuation. R frontal ICH/IVH 12/2014 s/p R frontal crani and hematoma evacuation. ; Cerebral angiogram was negative for aneurysm or AVM. Evaluated by Neurology preop: Pt has residual deficits from prior neurological insults-- mild expressive aphasia and dysarthria, slight decrease in sensation Right upper arm- chronic. Repeat MRI/MRA of brain completed preop 09/13/15 demonstrates no evidence of acute infarct, chronic stable infarcts previously described involving the L MCA territory Assessment: No acute issues. Stable post op Plan: Follow up as previously directed. Last Assessment & Plan: Assessment: H/O ICH x 2 s/p R temporal craniotomy (06/2014) and R frontal craniotomy (12/2014). Post-op pain 09/09/2015 05/28/2020 Overview: History: Pre-op h/o back pain treated w/ oxycodone 20mg q 6hrs prn and MS contin 30mg tid. MRI 09/08 no evidence of discitis or osteomyelitis. Assessment: Verbalizes adequate pain relief on preop regimen. Plan: Continue Tylenol, lidoderm, and preop regimen of Oxycodone 20mg q 6hrs prn and MS Contin 30mg tid Preop testing 01/30/2015 09/23/2015 Overview: Images from the original note were not included. [facility] PRE[facility] Surgeon: Emmanuel Wang M.D. Informed Consent Completed: No STS Score: AV Replacement Risk of Mortality: 2.61% Morbidity or Mortality: 29.84% Long Length of Stay: 16.325% Short Length of Stay: 15.915% Permanent Stroke: 2.899% Prolonged Ventilation: 22.329% DSW Infection: 0.168% Renal Failure: 5.656% Reoperation: 12.001% CAD: No Is intended procedure a CABG: No - is a beta jimmy ordered? No - reason: no documented CAD H & P completed: Yes PA/LAT: will need prior to surg CT: completed MRI:brain Completed LE US: N/A Cath: No Echo:Completed EKG: Completed EF %: 54% PI's: N/A Carotid: MRA of carotid: Completed Mapping: N/A Dental: Completed s/p extractions 12/2014 PFT's: N/A Recent Labs 01/30/15 0026 WBC 4.72 HB 9.9* HCT 30.4* PLT 185 INR 1.0 CREAT 0.75 UA: Normal HCG:N/A ABO/ABO Confirmed: Yes Blood ordered: Yes SA Swab: Yes - results: Negative Last Dose of Anticoagulation: heparin Op Note: Yes for surgery on 2009 Pacemaker Check: N/A Consults: ID, hematology DM: No Cardiac Surgical prep: Yes SIGNATURE: Ginette Luna CNP DATE of SERVICE: 01/30/2015 TIME of SERVICE: 4:19 PM Teri Gates CNP February 08, 2015 2:20 PM Pain 01/29/2015 05/28/2020 Overview: ,date--> increased narc dose for more optimal pain management. Endocarditis 01/29/2015 07/02/2017 Overview: History: January 29, 2015--> TTE completed--> continued changes c/w endocarditis on bicuspid aortic valve, similar to that seen on SABRA completed on 01/03/15. 01/30 cultures remain negative Assessment: WBC's WNL, afebrile Plan: Per ID: continue doxycline 100 mg po for possible Bartonella will review pathology of explanted valve with Dr Serrano when ready sequencing for Bartonella pending Stroke (cerebrum) 01/27/2015 01/03/2021 Overview: January 28, 2015--> likely cardioembolic. Following cardiology recs re: echo technque required for otpimal medcial dec. making wrt management/storke prevention. 01/30 as above January 31, 2015--> spoke to CTS staff who resuested a ntoe from stroke about recommended timing on Valve repalcement surgery, given his recent infarct. Also requested c/s from Hematology re: periop/intraop management of his primary coagulopathy. He also indicated that Mr. Harrington will need to undergo a SABRA and conv angio just prior to surgery, but alba snot need either study at this time. 07/29/17 Followed with [facility] neuro -vascular [facility] Last Assessment & Plan: Secondary to I.E -Symptoms stable -Continue speech exercises Seizure 01/27/2015 09/23/2015 Overview: AEDs: fosPHT and keppra January 28, 2015--> remains seizure free on PHTN and keppar. PHTN level 1.4 yday. continuing serial PHTN levels to confirm optimal. January 29, 2015--> switchiing to oral keppra. Fospheny stopped -continue on Keppra. DVT prophylaxis 01/02/2015 01/03/2021 Overview: Ambulatory SCDS No chemoprophylactic due to hemorrhage Congenital bicuspid aortic valve 01/02/2015 05/28/2020 Overview: Monitor: pt will follow outpatient. Infective endocarditis of aortic valve 5 01/03/2021 Overview: History: Large vegetation on the [place] bicuspid aortic valve. 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 Was initially being medically managed w/ ceftriaxone/doxycline due to high surgical risk: redo status, hemophilia, spontaneous intracranial bleeds. Assessment: 09/19/2015 Reop: AVR #27 CE, Ascending aortic root replacement with composite graft including #32 Per ID note: Difficult to know exactly what the echodensities represent. His history does not robustly support a diagnosis of IE and GN may also be associated with Bartonella IE. He has been treated appropriately with antibiotics for Bartonella. Plan: Per ID recommendations: -continue oral 100 mg po for possible Bartonella -will review pathology of explanted valve with Dr Park today but report no evidence for IE -sequencing for Bartonella pending ( will plan on oral doxcycline until l results back) -no need for CoPAT Spoke to ID: ID will follow up on OR results, ok to discharge pt on doxycycline 100mg q 12 hrs Elevated blood pressure (not hypertension) 12/3105/28/2020 Overview: sBP < 140 sBP 110-130 Continue to monitor МАРИНА (acute kidney injury) 07/24/20142020 Overview: Creat 2.11 Nephrology recs appreciated Na 137 ICH (intracerebral hemorrhage) 07/17/2014 0 05/28/2020 Overview: History: R occipital ICH/IVH 07/17/14 s/p R temporal crani for evacuation. R frontal ICH/IVH 12/2014 s/p R frontal crani and hematoma evacuation; Cerebral angiogram was negative for aneurysm or AVM - Embolic L MCA (M1) territory stroke in 01/2015 Assessment: AXOx3, mild aphasia, right hemianopsia Plan: speech and OT consult Last Assessment & Plan: R occipital ICH/IVH 07/17/14 s/p R temporal crani for evacuation. R frontal ICH/IVH 12/2014 s/p R frontal crani and hematoma evacuation -Cerebral angiogram was negative for aneurysm or AVM -Symptoms are stable Acute respiratory failure 07/17/20142014 Overview: Patient intubated for surgery. 07/18 extubated post surgery. Chronic pain disorder 07/02/2012 07/02/2012 Overview: L arm pain, on percocet at home No with some distal L arm pain in distal radial distribution Plan: -Percolone q3, ?transition to long acting -Colace Aortic aneurysm without rupture 06/29/2012 06/30/2017 Overview: -MRI/MRA chest which revealed a slight interval increase in the size of the aneurysmal aortic root now measuring 5.2 cm (previously measuring 4.9 cm). No evidence of dissection. -HD stable, SBP: 111-131 Plan: -BP control -F/u CTS recs to confirm no intervention necessary -If no intervention necessary, likely d/c home soon given that there is no dissection Hyponatremia 12/12/2009 12/16/2009 Overview: Sodium WNL with aggressive diuresis. Was Likely dilutional etiology. Cont & taper diuretic. / Nonspecific T wave inversion. 12/12/2009 Overview: Patient's EKG notable for T wave inversion in leads II, III, aVf a well as the anterior leads upon admission to [facility] 12/12 which was a change from baseline EKG 12/09. Patient denies CP and other subjective complaints/changes. Cardiac enzymes sent -CK & MB elevated & troponin near baseline. Will cont to check serial Ambrose. D/W Dr. Arce - no other intevention at this time. / Leucocytosis 12/11/2009 12/12/2009 Overview: 12/11 - Afebrile. Conitnue daily monitoring Acute renal insufficiency 12/11/20092009 Overview: Post-op pre-renal bump in Cr to 1.47 12/11. Has since trended down with less aggressive diuresis. Cont with currect diuretic regimen as patient is fluid/volume overloaded. / Acute blood loss anemia 12/11/2009 07/02/19 13 Overview: H/H remains stable today, 12/17. Demonstrated inc CT output 12/11 & was given protamine. Subsequently had drop in H/H to 6.6/19.1 & was transfused 1U PRBC on 12/12 & 2U PRBC 12/13. CT shows small loculated pericardial effuision - confirmed with TTE. Hematology following for factor VIII replacement Rx. / Acute Pulmonary Edema/Fluid overload. 12/11/2009 07/02/2012 Overview: Weight remains below pre-op. Cont PEP/C&DB/OOB/Ambulate. 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 He will subsequently receive 7,364 units (6,750 units +/- 10%) q 12 hours. Check a factor 8 assay level s/p 3 doses ( 12/10 at 1700) Given at 07:25 AM today. Primary service would like to transfuse 2 units FFP in the unit 12/10: Factor VIII assay on 12/10 normal.PTT high,PT normal.CT output minimal.await hematology regarding factor VIII therapy. Preop testing 12/02/2009 12/10/2009 Overview: Blank means still needed; x means completed; NA means not applicable Surgeon: _BWL___ Surgeon Visit: _X_ Informed Consent Completed: _X__ STS Score: unsupp CAD Yes/No __no__ Is intended procedure an Isolated CABG yes/no ___no___ If yes, is a beta jimmy ordered preop If no, why H & P: __x__ PA/LAT __x__ CXR: _x___ EKG: _x___ CT __x__ MRI ____ LE US ____ LHC: __NA___ Reviewed, yes or no _NA__ RHC _NA____ Echo: __x__ EF %: _55_ Labs:CBC x____ CMP __x__Creatinine __x__ PT/PTT __x__ INR ___x_ UA __x___ SA Swab __x___ Last Dose of Plavix PI's (R)____ (L) Carotid: __x__ Mapping: ____ Dental: __x__ PFT's: Op Note: ____ Pacemaker Check: ABO/ABO Confirmed/Blood ordered: __x___ Consults: DM: Cardiac Surgical prep: Congenital factor VIII disorder 09/02/2009 07/02/2017 Overview: PMHx: Hemophilia, 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 At home on 6400U Recombinate. Patient has been following with Dr. Lyons Plan: -Hematology consult - Continue Recombinate as scheduled -Monitor PT/PTT -IPCs Substance abuse in remission Last Assessment & Plan: Assessment: POA PLAN: Unsure of current treatment documented as of this encounter (statuses as of 07/20/2022) [facility]08-[facility]2019 History of Past illness Narrative* Problem Noted Date Resolved Date Cerebrovascular accident (CV A) due to embolism of left carotid artery 01/18/2019 01/03/2021 Recurrent major depression in partial remission 01/18/2019 01/03/2021 Expressive aphasia 07/01/2017 01/03/2021 Overview: Following Left frontal region of MCA: resultant expressive aphasia. Last Assessment & Plan: Moderate aphasia -Continue speech exercises Lung nodule 09/28/2015 05/28/2020 Overview: Assessment: Cardiac chest CT scan 09/10/2015 reported Stable 5 mm calcified nodule right upper lobe. Based on current guidelines*, a repeat follow-up unenhanced low-dose CT can be obtained in 12 months at clinical discretion. Plan: Pt is aware, follow up w/ local MD. Tooth decay 09/26/2015 05/28/2020 Overview: History: Preop dental evaluation revealed gross decay and chronic abscess of tooth #2 Assessment: Dental recommended extraction of tooth #2. Plan: After clearance from ID, CTS, Hematology, pt underwent extraction #2 on 09/27/15. Continue amicar x 1 more dose today per Hematology. Seizure 09/26/2015 05/28/2020 Overview: History: H/o seizures, on keppra preop Assessment: 09/20/15 post op seizure in ICU. No further events Plan: Continue keppra. Follow up w/ Neurology after discharge. Last Assessment & Plan: Post stroke epilepsy -Continue Keppra 750mg twice daily -Medication compliance encouraged Atelectasis 09/20/2015 05/28/2020 Overview: History: CXR 09/26: Small pleural effusions have near completely resolved. Improvement of by basilar atelectatic changes .No pneumothorax Assessment: Wt is well below preop, on room air Plan: Encourage ambulation, C&DB, PEP. Stop lasix. Stress hyperglycemia 09/20/2015 09/23/2015 Overview: No h/o DM A/P: SSI. Hypovolemia 09/19/2015 09/24/2015 Overview: Post-op fluid shifts A/P: IVF resuscitation as needed. Essential hypertension 09/19/2015 Overview: History: no meds pre-op Assessment: SBP controlled Plan: continue metoprolol (changed to toprol XL), lisinopril. Follow up locally Last Assessment & Plan: Follow up with PCP Refill for Metoprolol provided Well controlled today. Severe aortic regurgitation 09/09/201512/22 Overview: History: 4+ AR Assessment: 09/19/2015 Reop: AVR #27 CE, Ascending aortic root replacement with composite graft including #32 gelweave graft Surgical Pathology: A. Aortic valve, excision - Bicuspid aortic valve with severe calcification and severe fibrosis (gross diagnosis only). B. Ascending aorta and Hemashield graft, excision - Chronic dissection. Plan: ASA daily. Postop echo 09/24/15: - No AR. The peak gradient is 22 mmHg, the mean gradient is 14 mmHg - EF = 35 5% - The right ventricle is normal in size. Right ventricular systolic function is normal. Intracranial hemorrhage 09/09/2015 06/11/19 Overview: History: R occipital ICH/IVH 06/2014 s/p R temporal crani for evacuation. R frontal ICH/IVH 12/2014 s/p R frontal crani and hematoma evacuation. ; Cerebral angiogram was negative for aneurysm or AVM. Evaluated by Neurology preop: Pt has residual deficits from prior neurological insults-- mild expressive aphasia and dysarthria, slight decrease in sensation Right upper arm- chronic. Repeat MRI/MRA of brain completed preop 09/13/15 demonstrates no evidence of acute infarct, chronic stable infarcts previously described involving the L MCA territory Assessment: No acute issues. Stable post op Plan: Follow up as previously directed. Last Assessment & Plan: Assessment: H/O ICH x 2 s/p R temporal craniotomy (06/2014) and R frontal craniotomy (12/2014). Post-op pain 09/09/2015 05/28/2020 Overview: History: Pre-op h/o back pain treated w/ oxycodone 20mg q 6hrs prn and MS contin 30mg tid. MRI 09/08 no evidence of discitis or osteomyelitis. Assessment: Verbalizes adequate pain relief on preop regimen. Plan: Continue Tylenol, lidoderm, and preop regimen of Oxycodone 20mg q 6hrs prn and MS Contin 30mg tid Preop testing 01/30/2015 09/23/2015 Overview: Images from the original note were not included. [facility] Surgeon: Emmanuel Wang M.D. Informed Consent Completed: No STS Score: AV Replacement Risk of Mortality: 2.61% Morbidity or Mortality: 29.84% Long Length of Stay: 16.325% Short Length of Stay: 15.915% Permanent Stroke: 2.899% Prolonged Ventilation: 22.329% DSW Infection: 0.168% Renal Failure: 5.656% Reoperation: 12.001% CAD: No Is intended procedure a CABG: No - is a beta jimmy ordered? No - reason: no documented CAD H & P completed: Yes PA/LAT: will need prior to surg CT: completed MRI:brain Completed LE US: N/A Cath: No Echo:Completed EKG: Completed EF %: 54% PI's: N/A Carotid: MRA of carotid: Completed Mapping: N/A Dental: Completed s/p extractions 12/2014 PFT's: N/A Recent Labs 01/30/15 0026 WBC 4.72 HB 9.9* HCT 30.4* PLT 185 INR 1.0 CREAT 0.75 UA: Normal HCG:N/A ABO/ABO Confirmed: Yes Blood ordered: Yes SA Swab: Yes - results: Negative Last Dose of Anticoagulation: heparin Op Note: Yes for surgery on 2009 Pacemaker Check: N/A Consults: ID, hematology DM: No Cardiac Surgical prep: Yes SIGNATURE: Ginette Luna CNP DATE of SERVICE: 01/30/2015 TIME of SERVICE: 4:19 PM Teri Gates CNP February 08, 2015 2:20 PM Pain 01/29/2015 05/28/2020 Overview: ,date--> increased narc dose for more optimal pain management. Endocarditis 01/29/2015 07/02/2017 Overview: History: January 29, 2015--> TTE completed--> continued changes c/w endocarditis on bicuspid aortic valve, similar to that seen on SABRA completed on 01/03/15. 01/30 cultures remain negative Assessment: WBC's WNL, afebrile Plan: Per ID: continue doxycline 100 mg po for possible Bartonella will review pathology of explanted valve with Dr Serrano when ready sequencing for Bartonella pending Stroke (cerebrum) 01/27/2015 01/03/2021 Overview: January 28, 2015--> likely cardioembolic. Following cardiology recs re: echo technque required for otpimal medcial dec. making wrt management/storke prevention. 01/30 as above January 31, 2015--> spoke to CTS staff who resuested a ntoe from stroke about recommended timing on Valve repalcement surgery, given his recent infarct. Also requested c/s from Hematology re: periop/intraop management of his primary coagulopathy. He also indicated that Mr. Harrington will need to undergo a SABRA and conv angio just prior to surgery, but alba snot need either study at this time. 07/29/17 Followed with [facility] Last Assessment & Plan: Secondary to I.E -Symptoms stable -Continue speech exercises Seizure 01/27/2015 09/23/2015 Overview: AEDs: fosPHT and keppra January 28, 2015--> remains seizure free on PHTN and keppar. PHTN level 1.4 yday. continuing serial PHTN levels to confirm optimal. January 29, 2015--> switchiing to oral keppra. Fospheny stopped -continue on Keppra. DVT prophylaxis 01/02/2015 01/03/2021 Overview: Ambulatory SCDS No chemoprophylactic due to hemorrhage Congenital bicuspid aortic valve 01/02/2015 05/28/2020 Overview: Monitor: pt will follow outpatient. Infective endocarditis of aortic valve 5 01/03/2021 Overview: History: Large vegetation on the [place] bicuspid aortic valve. 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 Was initially being medically managed w/ ceftriaxone/doxycline due to high surgical risk: redo status, hemophilia, spontaneous intracranial bleeds. Assessment: 09/19/2015 Reop: AVR #27 CE, Ascending aortic root replacement with composite graft including #32 Per ID note: Difficult to know exactly what the echodensities represent. His history does not robustly support a diagnosis of IE and GN may also be associated with Bartonella IE. He has been treated appropriately with antibiotics for Bartonella. Plan: Per ID recommendations: -continue oral 100 mg po for possible Bartonella -will review pathology of explanted valve with Dr Park today but report no evidence for IE -sequencing for Bartonella pending ( will plan on oral doxcycline until l results back) -no need for CoPAT Spoke to ID: ID will follow up on OR results, ok to discharge pt on doxycycline 100mg q 12 hrs Elevated blood pressure (not hypertension) 12/3105/28/2020 Overview: sBP < 140 sBP 110-130 Continue to monitor МАРИНА (acute kidney injury) 07/24/20142020 Overview: Creat 2.11 Nephrology recs appreciated Na 137 ICH (intracerebral hemorrhage) 07/17/2014 0 05/28/2020 Overview: History: R occipital ICH/IVH 07/17/14 s/p R temporal crani for evacuation. R frontal ICH/IVH 12/2014 s/p R frontal crani and hematoma evacuation; Cerebral angiogram was negative for aneurysm or AVM - Embolic L MCA (M1) territory stroke in 01/2015 Assessment: AXOx3, mild aphasia, right hemianopsia Plan: speech and OT consult Last Assessment & Plan: R occipital ICH/IVH 07/17/14 s/p R temporal crani for evacuation. R frontal ICH/IVH 12/2014 s/p R frontal crani and hematoma evacuation -Cerebral angiogram was negative for aneurysm or AVM -Symptoms are stable Acute respiratory failure 07/17/20142014 Overview: Patient intubated for surgery. 07/18 extubated post surgery. Chronic pain disorder 07/02/2012 07/02/2012 Overview: L arm pain, on percocet at home No with some distal L arm pain in distal radial distribution Plan: -Percolone q3, ?transition to long acting -Colace Aortic aneurysm without rupture 06/29/2012 06/30/2017 Overview: -MRI/MRA chest which revealed a slight interval increase in the size of the aneurysmal aortic root now measuring 5.2 cm (previously measuring 4.9 cm). No evidence of dissection. -HD stable, SBP: 111-131 Plan: -BP control -F/u CTS recs to confirm no intervention necessary -If no intervention necessary, likely d/c home soon given that there is no dissection Hyponatremia 12/12/2009 12/16/2009 Overview: Sodium WNL with aggressive diuresis. Was Likely dilutional etiology. Cont & taper diuretic. / Nonspecific T wave inversion. 12/12/2009 Overview: Patient's EKG notable for T wave inversion in leads II, III, aVf a well as the anterior leads upon admission to [facility] 12/12 which was a change from baseline EKG 12/09. Patient denies CP and other subjective complaints/changes. Cardiac enzymes sent -CK & MB elevated & troponin near baseline. Will cont to check serial Ambrose. D/W Dr. Arce - no other intevention at this time. / Leucocytosis 12/11/2009 12/12/2009 Overview: 12/11 - Afebrile. Conitnue daily monitoring Acute renal insufficiency 12/11/20092009 Overview: Post-op pre-renal bump in Cr to 1.47 12/11. Has since trended down with less aggressive diuresis. Cont with currect diuretic regimen as patient is fluid/volume overloaded. / Acute blood loss anemia 12/11/2009 07/02/19 13 Overview: H/H remains stable today, 12/17. Demonstrated inc CT output 12/11 & was given protamine. Subsequently had drop in H/H to 6.6/19.1 & was transfused 1U PRBC on 12/12 & 2U PRBC 12/13. CT shows small loculated pericardial effuision - confirmed with TTE. Hematology following for factor VIII replacement Rx. / Acute Pulmonary Edema/Fluid overload. 12/11/2009 07/02/2012 Overview: Weight remains below pre-op. Cont PEP/C&DB/OOB/Ambulate. 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 He will subsequently receive 7,364 units (6,750 units +/- 10%) q 12 hours. Check a factor 8 assay level s/p 3 doses ( 12/10 at 1700) Given at 07:25 AM today. Primary service would like to transfuse 2 units FFP in the unit 12/10 -: Factor VIII assay on 12/10 normal.PTT high,PT normal.CT output minimal.await hematology regarding factor VIII therapy. Preop testing 12/02/2009 12/10/2009 Overview: Blank means still needed; x means completed; NA means not applicable Surgeon: _JERAMIE___ Surgeon Visit: _X_ Informed Consent Completed: _X__ STS Score: unsupp CAD Yes/No __no__ Is intended procedure an Isolated CABG yes/no ___no___ If yes, is a beta jimmy ordered preop If no, why H & P: __x__ PA/LAT __x__ CXR: _x___ EKG: _x___ CT __x__ MRI ____ LE US ____ LHC: __NA___ Reviewed, yes or no _NA__ RHC _NA____ Echo: __x__ EF %: _55_ Labs:CBC x____ CMP __x__Creatinine __x__ PT/PTT __x__ INR ___x_ UA __x___ SA Swab __x___ Last Dose of Plavix PI's (R)____ (L) Carotid: __x__ Mapping: ____ Dental: __x__ PFT's: Op Note: ____ Pacemaker Check: ABO/ABO Confirmed/Blood ordered: __x___ Consults: DM: Cardiac Surgical prep: Congenital factor VIII disorder 09/02/2009 07/02/2017 Overview: PMHx: Hemophilia, 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 At home on 6400U Recombinate. Patient has been following with Dr. Lyons Plan: -Hematology consult - Continue Recombinate as scheduled -Monitor PT/PTT -IPCs Substance abuse in remission Last Assessment & Plan: Assessment: POA PLAN: Unsure of current treatment documented as of this encounter (statuses as of 10/02/2022) [facility] History of Past illness Narrative* Problem Noted Date Diagnosed Date Resolved Date Cerebrovascular accident (CV A) due to embolism of left carotid artery 01/18/2019 01/04/20 21 Recurrent major depression i n partial remission 01/18/2019 01/03/2021 Expressive aphasia 07/01/2017 Overview: Following Left frontal region of MCA: resultant expressive aphasia. Last Assessment & Plan: Moderate aphasia -Continue speech exercises Lung nodule 09/28/2015 05/28/2020 Overview: Assessment: Cardiac chest CT scan 09/10/2015 reported Stable 5 mm calcified nodule right upper lobe. Based on current guidelines*, a repeat follow-up unenhanced low-dose CT can be obtained in 12 months at clinical discretion. Plan: Pt is aware, follow up w/ local MD. Tooth decay 09/26/2015 05/28/2020 Overview: History: Preop dental evaluation revealed gross decay and chronic abscess of tooth #2 Assessment: Dental recommended extraction of tooth #2. Plan: After clearance from ID, CTS, Hematology, pt underwent extraction #2 on 09/27/15. Continue amicar x 1 more dose today per Hematology. Seizure 09/26/2015 05/28/2020 Overview: History: H/o seizures, on keppra preop Assessment: 09/20/15 post op seizure in ICU. No further events Plan: Continue keppra. Follow up w/ Neurology after discharge. Last Assessment & Plan: Post stroke epilepsy -Continue Keppra 750mg twice daily -Medication compliance encouraged Atelectasis 09/20/2015 05/28/2020 Overview: History: CXR 09/26: Small pleural effusions have near completely resolved. Improvement of by basilar atelectatic changes .No pneumothorax Assessment: Wt is well below preop, on room air Plan: Encourage ambulation, C&DB, PEP. Stop lasix. Stress hyperglycemia 09/20/2015 016 Overview: No h/o DM A/P: SSI. Hypovolemia 09/19/2015 09/24/2015 Overview: Post-op fluid shifts A/P: IVF resuscitation as needed. Essential hypertension 09/19/201501/03 Overview: History: no meds pre-op Assessment: SBP controlled Plan: continue metoprolol (changed to toprol XL), lisinopril. Follow up locally Last Assessment & Plan: Follow up with PCP Refill for Metoprolol provided Well controlled today. Severe aortic regurgitation 09/09/2015 01/03/2021 Overview: History: 4+ AR Assessment: 09/19/2015 Reop: AVR #27 CE, Ascending aortic root replacement with composite graft including #32 gelweave graft Surgical Pathology: A. Aortic valve, excision - Bicuspid aortic valve with severe calcification and severe fibrosis (gross diagnosis only). B. Ascending aorta and Hemashield graft, excision - Chronic dissection. Plan: ASA daily. Postop echo 09/24/15: - No AR. The peak gradient is 22 mmHg, the mean gradient is 14 mmHg - EF = 35 5% - The right ventricle is normal in size. Right ventricular systolic function is normal. Intracranial hemorrhage 09/09/201505/24 Overview: History: R occipital ICH/IVH 06/2014 s/p R temporal crani for evacuation. R frontal ICH/IVH 12/2014 s/p R frontal crani and hematoma evacuation. ; Cerebral angiogram was negative for aneurysm or AVM. Evaluated by Neurology preop: Pt has residual deficits from prior neurological insults-- mild expressive aphasia and dysarthria, slight decrease in sensation Right upper arm- chronic. Repeat MRI/MRA of brain completed preop 09/13/15 demonstrates no evidence of acute infarct, chronic stable infarcts previously described involving the L MCA territory Assessment: No acute issues. Stable post op Plan: Follow up as previously directed. Last Assessment & Plan: Assessment: H/O ICH x 2 s/p R temporal craniotomy (06/2014) and R frontal craniotomy (12/2014). Post-op pain 09/09/2015 05/28/2020 Overview: History: Pre-op h/o back pain treated w/ oxycodone 20mg q 6hrs prn and MS contin 30mg tid. MRI 09/08 no evidence of discitis or osteomyelitis. Assessment: Verbalizes adequate pain relief on preop regimen. Plan: Continue Tylenol, lidoderm, and preop regimen of Oxycodone 20mg q 6hrs prn and MS Contin 30mg tid Preop testing 01/30/2015 09/23/2015 Overview: Images from the original note were not included. [facility] PRE[facility] Surgeon: Emmanuel Wang M.D. Informed Consent Completed: No STS Score: AV Replacement Risk of Mortality: 2.61% Morbidity or Mortality: 29.84% Long Length of Stay: 16.325% Short Length of Stay: 15.915% Permanent Stroke: 2.899% Prolonged Ventilation: 22.329% DSW Infection: 0.168% Renal Failure: 5.656% Reoperation: 12.001% CAD: No Is intended procedure a CABG: No - is a beta jimmy ordered? No - reason: no documented CAD H & P completed: Yes PA/LAT: will need prior to surg CT: completed MRI:brain Completed LE US: N/A Cath: No Echo:Completed EKG: Completed EF %: 54% PI's: N/A Carotid: MRA of carotid: Completed Mapping: N/A Dental: Completed s/p extractions 12/2014 PFT's: N/A Recent Labs 01/30/15 0026 WBC 4.72 HB 9.9* HCT 30.4* PLT 185 INR 1.0 CREAT 0.75 UA: Normal HCG:N/A ABO/ABO Confirmed: Yes Blood ordered: Yes SA Swab: Yes - results: Negative Last Dose of Anticoagulation: heparin Op Note: Yes for surgery on 2009 Pacemaker Check: N/A Consults: ID, hematology DM: No Cardiac Surgical prep: Yes SIGNATURE: Ginette Luna CNP DATE of SERVICE: 01/30/2015 TIME of SERVICE: 4:19 PM Teri Gates CNP February 08, 2015 2:20 PM Pain 01/29/2015 05/28/2020 Overview: ,date--> increased narc dose for more optimal pain management. Endocarditis 01/29/2015 07/02/2017 Overview: History: January 29, 2015--> TTE completed--> continued changes c/w endocarditis on bicuspid aortic valve, similar to that seen on SABRA completed on 01/03/15. 01/30 cultures remain negative Assessment: WBC's WNL, afebrile Plan: Per ID: continue doxycline 100 mg po for possible Bartonella will review pathology of explanted valve with Dr Serrano when ready sequencing for Bartonella pending Stroke (cerebrum) 01/27/2015 01/03/2021 Overview: January 28, 2015--> likely cardioembolic. Following cardiology recs re: echo technque required for otpimal medcial dec. making wrt management/storke prevention. 01/30 as above January 31, 2015--> spoke to CTS staff who resuested a ntoe from stroke about recommended timing on Valve repalcement surgery, given his recent infarct. Also requested c/s from Hematology re: periop/intraop management of his primary coagulopathy. He also indicated that Mr. Harrington will need to undergo a SABRA and conv angio just prior to surgery, but alba snot need either study at this time. 07/29/17 Followed with [facility] Last Assessment & Plan: Secondary to I.E -Symptoms stable -Continue speech exercises Seizure 01/27/2015 09/23/2015 Overview: AEDs: fosPHT and keppra January 28, 2015--> remains seizure free on PHTN and keppar. PHTN level 1.4 yday. continuing serial PHTN levels to confirm optimal. January 29, 2015--> switchiing to oral keppra. Fospheny stopped -continue on Keppra. DVT prophylaxis 01/02/2015 01/03/2021 Overview: Ambulatory SCDS No chemoprophylactic due to hemorrhage Congenital bicuspid aortic valve 01/02/2015 05/28/2020 Overview: Monitor: pt will follow outpatient. Infective endocarditis of aortic valve 01/01/2015 01/03/2021 Overview: History: Large vegetation on the [place] bicuspid aortic valve. 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 Was initially being medically managed w/ ceftriaxone/doxycline due to high surgical risk: redo status, hemophilia, spontaneous intracranial bleeds. Assessment: 09/19/2015 Reop: AVR #27 CE, Ascending aortic root replacement with composite graft including #32 Per ID note: Difficult to know exactly what the echodensities represent. His history does not robustly support a diagnosis of IE and GN may also be associated with Bartonella IE. He has been treated appropriately with antibiotics for Bartonella. Plan: Per ID recommendations: -continue oral 100 mg po for possible Bartonella -will review pathology of explanted valve with Dr Park today but report no evidence for IE -sequencing for Bartonella pending ( will plan on oral doxcycline until l results back) -no need for CoPAT Spoke to ID: ID will follow up on OR results, ok to discharge pt on doxycycline 100mg q 12 hrs Elevated blood pressure (not hypertension) 12/31/2014 05/28/2020 Overview: sBP < 140 sBP 110-130 Continue to monitor МАРИНА (acute kidney injury) 07/24/2014 Overview: Creat 2.11 Nephrology recs appreciated Na 137 ICH (intracerebral hemorrhage) 07/17/2014 05/28/2020 Overview: History: R occipital ICH/IVH 07/17/14 s/p R temporal crani for evacuation. R frontal ICH/IVH 12/2014 s/p R frontal crani and hematoma evacuation; Cerebral angiogram was negative for aneurysm or AVM - Embolic L MCA (M1) territory stroke in 01/2015 Assessment: AXOx3, mild aphasia, right hemianopsia Plan: speech and OT consult Last Assessment & Plan: R occipital ICH/IVH 07/17/14 s/p R temporal crani for evacuation. R frontal ICH/IVH 12/2014 s/p R frontal crani and hematoma evacuation -Cerebral angiogram was negative for aneurysm or AVM -Symptoms are stable Acute respiratory failure 07/17/2014 Overview: Patient intubated for surgery. 07/18 extubated post surgery. Chronic pain disorder 07/02/20122012 Overview: L arm pain, on percocet at home No with some distal L arm pain in distal radial distribution Plan: -Percolone q3, ?transition to long acting -Colace Aortic aneurysm without rupture 06/29/2012 06/30/2017 Overview: -MRI/MRA chest which revealed a slight interval increase in the size of the aneurysmal aortic root now measuring 5.2 cm (previously measuring 4.9 cm). No evidence of dissection. -HD stable, SBP: 111-131 Plan: -BP control -F/u CTS recs to confirm no intervention necessary -If no intervention necessary, likely d/c home soon given that there is no dissection Hyponatremia 12/12/2009 12/16/2009 Overview: Sodium WNL with aggressive diuresis. Was Likely dilutional etiology. Cont & taper diuretic. / Nonspecific T wave inversion. 12/12/2009 12/13/2009 Overview: Patient's EKG notable for T wave inversion in leads II, III, aVf a well as the anterior leads upon admission to [facility] 12/12 which was a change from baseline EKG 12/09. Patient denies CP and other subjective complaints/changes. Cardiac enzymes sent -CK & MB elevated & troponin near baseline. Will cont to check serial Ambrose. D/W Dr. Arce - no other intevention at this time. / Leucocytosis 12/11/2009 12/12/2009 Overview: 12/11 - Afebrile. Conitnue daily monitoring Acute renal insufficiency 12/11/2009 Overview: Post-op pre-renal bump in Cr to 1.47 12/11. Has since trended down with less aggressive diuresis. Cont with currect diuretic regimen as patient is fluid/volume overloaded. / Acute blood loss anemia 12/11/2009 02/0 01/2013 Overview: H/H remains stable today, 12/17. Demonstrated inc CT output 12/11 & was given protamine. Subsequently had drop in H/H to 6.6/19.1 & was transfused 1U PRBC on 12/12 & 2U PRBC 12/13. CT shows small loculated pericardial effuision - confirmed with TTE. Hematology following for factor VIII replacement Rx. / Acute Pulmonary Edema/Fluid overload. 12/11/2009 07/02/2012 Overview: Weight remains below pre-op. Cont PEP/C&DB/OOB/Ambulate. 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 He will subsequently receive 7,364 units (6,750 units +/- 10%) q 12 hours. Check a factor 8 assay level s/p 3 doses ( 12/10 at 1700) Given at 07:25 AM today. Primary service would like to transfuse 2 units FFP in the unit 12/10: Factor VIII assay on 12/10 normal.PTT high,PT normal.CT output minimal.await hematology regarding factor VIII therapy. Preop testing 12/02/2009 12/10/2009 Overview: Blank means still needed; x means completed; NA means not applicable Surgeon: _BWL___ Surgeon Visit: _X_ Informed Consent Completed: _X__ STS Score: unsupp CAD Yes/No __no__ Is intended procedure an Isolated CABG yes/no ___no___ If yes, is a beta jimmy ordered preop If no, why H & P: __x__ PA/LAT __x__ CXR: _x___ EKG: _x___ CT __x__ MRI ____ LE ____ LHC: __NA___ Reviewed, yes or no _NA__ RHC _NA____ Echo: __x__ EF %: _55_ Labs:CBC x____ CMP __x__Creatinine __x__ PT/PTT __x__ INR ___x_ UA __x___ SA Swab __x___ Last Dose of Plavix PI's (R)____ (L) Carotid: __x__ Mapping: ____ Dental: __x__ PFT's: Op Note: ____ Pacemaker Check: ABO/ABO Confirmed/Blood ordered: __x___ Consults: DM: Cardiac Surgical prep: Congenital factor VIII disorder 09/02/2009 07/02/2017 Overview: PMHx: Hemophilia, 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 At home on 6400U Recombinate. Patient has been following with Dr. Lyons Plan: -Hematology consult - Continue Recombinate as scheduled -Monitor PT/PTT -IPCs Substance abuse in remission 06/17/2022 Last Assessment & Plan: Assessment: POA PLAN: Unsure of current treatment documented as of this encounter (statuses as of 12/03/2022) [facility]08-28-2019 History of Past illness Narrative* Problem Noted Date Diagnosed Date Resolved Date Cerebrovascular accident (CV A) due to embolism of left carotid artery 01/18/2019 01/04/20 21 Recurrent major depression i n partial remission 01/18/2019 01/03/2021 Expressive aphasia 07/01/2017 Overview: Following Left frontal region of MCA: resultant expressive aphasia. Last Assessment & Plan: Moderate aphasia -Continue speech exercises Lung nodule 09/28/2015 05/28/2020 Overview: Assessment: Cardiac chest CT scan 09/10/2015 reported Stable 5 mm calcified nodule right upper lobe. Based on current guidelines*, a repeat follow-up unenhanced low-dose CT can be obtained in 12 months at clinical discretion. Plan: Pt is aware, follow up w/ local MD. Tooth decay 09/26/2015 05/28/2020 Overview: History: Preop dental evaluation revealed gross decay and chronic abscess of tooth #2 Assessment: Dental recommended extraction of tooth #2. Plan: After clearance from ID, CTS, Hematology, pt underwent extraction #2 on 09/27/15. Continue amicar x 1 more dose today per Hematology. Seizure 09/26/2015 05/28/2020 Overview: History: H/o seizures, on keppra preop Assessment: 09/20/15 post op seizure in ICU. No further events Plan: Continue keppra. Follow up w/ Neurology after discharge. Last Assessment & Plan: Post stroke epilepsy -Continue Keppra 750mg twice daily -Medication compliance encouraged Atelectasis 09/20/2015 05/28/2020 Overview: History: CXR 09/26: Small pleural effusions have near completely resolved. Improvement of by basilar atelectatic changes .No pneumothorax Assessment: Wt is well below preop, on room air Plan: Encourage ambulation, C&DB, PEP. Stop lasix. Stress hyperglycemia 09/20/2015 016 Overview: No h/o DM A/P: SSI. Hypovolemia 09/19/2015 09/24/2015 Overview: Post-op fluid shifts A/P: IVF resuscitation as needed. Essential hypertension 09/19/201501/03 Overview: History: no meds pre-op Assessment: SBP controlled Plan: continue metoprolol (changed to toprol XL), lisinopril. Follow up locally Last Assessment & Plan: Follow up with PCP Refill for Metoprolol provided Well controlled today. Severe aortic regurgitation 09/09/2015 01/03/2021 Overview: History: 4+ AR Assessment: 09/19/2015 Reop: AVR #27 CE, Ascending aortic root replacement with composite graft including #32 gelweave graft Surgical Pathology: A. Aortic valve, excision - Bicuspid aortic valve with severe calcification and severe fibrosis (gross diagnosis only). B. Ascending aorta and Hemashield graft, excision - Chronic dissection. Plan: ASA daily. Postop echo 09/24/15: - No AR. The peak gradient is 22 mmHg, the mean gradient is 14 mmHg - EF = 35 5% - The right ventricle is normal in size. Right ventricular systolic function is normal. Intracranial hemorrhage 09/09/201505/24 Overview: History: R occipital ICH/IVH 06/2014 s/p R temporal crani for evacuation. R frontal ICH/IVH 12/2014 s/p R frontal crani and hematoma evacuation. ; Cerebral angiogram was negative for aneurysm or AVM. Evaluated by Neurology preop: Pt has residual deficits from prior neurological insults-- mild expressive aphasia and dysarthria, slight decrease in sensation Right upper arm- chronic. Repeat MRI/MRA of brain completed preop 09/13/15 demonstrates no evidence of acute infarct, chronic stable infarcts previously described involving the L MCA territory Assessment: No acute issues. Stable post op Plan: Follow up as previously directed. Last Assessment & Plan: Assessment: H/O ICH x 2 s/p R temporal craniotomy (06/2014) and R frontal craniotomy (12/2014). Post-op pain 09/09/2015 05/28/2020 Overview: History: Pre-op h/o back pain treated w/ oxycodone 20mg q 6hrs prn and MS contin 30mg tid. MRI 09/08 no evidence of discitis or osteomyelitis. Assessment: Verbalizes adequate pain relief on preop regimen. Plan: Continue Tylenol, lidoderm, and preop regimen of Oxycodone 20mg q 6hrs prn and MS Contin 30mg tid Preop testing 01/30/2015 09/23/2015 Overview: Images from the original note were not included. [facility] PRE-[facility] Surgeon: Emmanuel Wang M.D. Informed Consent Completed: No STS Score: AV Replacement Risk of Mortality: 2.61% Morbidity or Mortality: 29.84% Long Length of Stay: 16.325% Short Length of Stay: 15.915% Permanent Stroke: 2.899% Prolonged Ventilation: 22.329% DSW Infection: 0.168% Renal Failure: 5.656% Reoperation: 12.001% CAD: No Is intended procedure a CABG: No - is a beta jimmy ordered? No - reason: no documented CAD H & P completed: Yes PA/LAT: will need prior to surg CT: completed MRI:brain Completed LE US: N/A Cath: No Echo:Completed EKG: Completed EF %: 54% PI's: N/A Carotid: MRA of carotid: Completed Mapping: N/A Dental: Completed s/p extractions 12/2014 PFT's: N/A Recent Labs 01/30/15 0026 WBC 4.72 HB 9.9* HCT 30.4* PLT 185 INR 1.0 CREAT 0.75 UA: Normal HCG:N/A ABO/ABO Confirmed: Yes Blood ordered: Yes SA Swab: Yes - results: Negative Last Dose of Anticoagulation: heparin Op Note: Yes for surgery on 2009 Pacemaker Check: N/A Consults: ID, hematology DM: No Cardiac Surgical prep: Yes SIGNATURE: Ginette Luna CNP DATE of SERVICE: 01/30/2015 TIME of SERVICE: 4:19 PM Teri Gates CNP February 08, 2015 2:20 PM Pain 01/29/2015 05/28/2020 Overview: ,date--> increased narc dose for more optimal pain management. Endocarditis 01/29/2015 07/02/2017 Overview: History: January 29, 2015--> TTE completed--> continued changes c/w endocarditis on bicuspid aortic valve, similar to that seen on SABRA completed on 01/03/15. 01/30 cultures remain negative Assessment: WBC's WNL, afebrile Plan: Per ID: continue doxycline 100 mg po for possible Bartonella will review pathology of explanted valve with Dr Serrano when ready sequencing for Bartonella pending Stroke (cerebrum) 01/27/2015 01/03/2021 Overview: January 28, 2015--> likely cardioembolic. Following cardiology recs re: echo technque required for otpimal medcial dec. making wrt management/storke prevention. 01/30 as above January 31, 2015--> spoke to CTS staff who resuested a ntoe from stroke about recommended timing on Valve repalcement surgery, given his recent infarct. Also requested c/s from Hematology re: periop/intraop management of his primary coagulopathy. He also indicated that Mr. Harrington will need to undergo a SABRA and conv angio just prior to surgery, but alba snot need either study at this time. 07/29/17 Followed with [facility] Last Assessment & Plan: Secondary to I.E -Symptoms stable -Continue speech exercises Seizure 01/27/2015 09/23/2015 Overview: AEDs: fosPHT and keppra January 28, 2015--> remains seizure free on PHTN and keppar. PHTN level 1.4 yday. continuing serial PHTN levels to confirm optimal. January 29, 2015--> switchiing to oral keppra. Fospheny stopped -continue on Keppra. DVT prophylaxis 01/02/2015 01/03/2021 Overview: Ambulatory SCDS No chemoprophylactic due to hemorrhage Congenital bicuspid aortic valve 01/02/2015 05/28/2020 Overview: Monitor: pt will follow outpatient. Infective endocarditis of aortic valve 01/01/2015 01/03/2021 Overview: History: Large vegetation on the [place] bicuspid aortic valve. 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 Was initially being medically managed w/ ceftriaxone/doxycline due to high surgical risk: redo status, hemophilia, spontaneous intracranial bleeds. Assessment: 09/19/2015 Reop: AVR #27 CE, Ascending aortic root replacement with composite graft including #32 Per ID note: Difficult to know exactly what the echodensities represent. His history does not robustly support a diagnosis of IE and GN may also be associated with Bartonella IE. He has been treated appropriately with antibiotics for Bartonella. Plan: Per ID recommendations: -continue oral 100 mg po for possible Bartonella -will review pathology of explanted valve with Dr Park today but report no evidence for IE -sequencing for Bartonella pending ( will plan on oral doxcycline until l results back) -no need for CoPAT Spoke to ID: ID will follow up on OR results, ok to discharge pt on doxycycline 100mg q 12 hrs Elevated blood pressure (not hypertension) 12/31/2014 05/28/2020 Overview: sBP < 140 sBP 110-130 Continue to monitor МАРИНА (acute kidney injury) 07/24/2014 Overview: Creat 2.11 Nephrology recs appreciated Na 137 ICH (intracerebral hemorrhage) 07/17/2014 05/28/2020 Overview: History: R occipital ICH/IVH 07/17/14 s/p R temporal crani for evacuation. R frontal ICH/IVH 12/2014 s/p R frontal crani and hematoma evacuation; Cerebral angiogram was negative for aneurysm or AVM - Embolic L MCA (M1) territory stroke in 01/2015 Assessment: AXOx3, mild aphasia, right hemianopsia Plan: speech and OT consult Last Assessment & Plan: R occipital ICH/IVH 07/17/14 s/p R temporal crani for evacuation. R frontal ICH/IVH 12/2014 s/p R frontal crani and hematoma evacuation -Cerebral angiogram was negative for aneurysm or AVM -Symptoms are stable Acute respiratory failure 07/17/2014 Overview: Patient intubated for surgery. 07/18 extubated post surgery. Chronic pain disorder 07/02/20122012 Overview: L arm pain, on percocet at home No with some distal L arm pain in distal radial distribution Plan: -Percolone q3, ?transition to long acting -Colace Aortic aneurysm without rupture 06/29/2012 06/30/2017 Overview: -MRI/MRA chest which revealed a slight interval increase in the size of the aneurysmal aortic root now measuring 5.2 cm (previously measuring 4.9 cm). No evidence of dissection. -HD stable, SBP: 111-131 Plan: -BP control -F/u CTS recs to confirm no intervention necessary -If no intervention necessary, likely d/c home soon given that there is no dissection Hyponatremia 12/12/2009 12/16/2009 Overview: Sodium WNL with aggressive diuresis. Was Likely dilutional etiology. Cont & taper diuretic. / Nonspecific T wave inversion. 12/12/2009 12/13/2009 Overview: Patient's EKG notable for T wave inversion in leads II, III, aVf a well as the anterior leads upon admission to [facility] 12/12 which was a change from baseline EKG 12/09. Patient denies CP and other subjective complaints/changes. Cardiac enzymes sent -CK & MB elevated & troponin near baseline. Will cont to check serial Ambrose. D/W Dr. Arce - no other intevention at this time. / Leucocytosis 12/11/2009 12/12/2009 Overview: 12/11 - Afebrile. Conitnue daily monitoring Acute renal insufficiency 12/11/2009 Overview: Post-op pre-renal bump in Cr to 1.47 12/11. Has since trended down with less aggressive diuresis. Cont with currect diuretic regimen as patient is fluid/volume overloaded. / Acute blood loss anemia 12/11/2009 02/0 01/2013 Overview: H/H remains stable today, 12/17. Demonstrated inc CT output 12/11 & was given protamine. Subsequently had drop in H/H to 6.6/19.1 & was transfused 1U PRBC on 12/12 & 2U PRBC 12/13. CT shows small loculated pericardial effuision - confirmed with TTE. Hematology following for factor VIII replacement Rx. / Acute Pulmonary Edema/Fluid overload. 12/11/2009 07/02/2012 Overview: Weight remains below pre-op. Cont PEP/C&DB/OOB/Ambulate. 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 He will subsequently receive 7,364 units (6,750 units +/- 10%) q 12 hours. Check a factor 8 assay level s/p 3 doses ( 12/10 at 1700) Given at 07:25 AM today. Primary service would like to transfuse 2 units FFP in the unit 12/10 -: Factor VIII assay on 12/10 normal.PTT high,PT normal.CT output minimal.await hematology regarding factor VIII therapy. Preop testing 12/02/2009 12/10/2009 Overview: Blank means still needed; x means completed; NA means not applicable Surgeon: _BWL___ Surgeon Visit: _X_ Informed Consent Completed: _X__ STS Score: unsupp CAD Yes/No __no__ Is intended procedure an Isolated CABG yes/no ___no___ If yes, is a beta jimmy ordered preop If no, why H & P: __x__ PA/LAT __x__ CXR: _x___ EKG: _x___ CT __x__ MRI ____ LE US ____ LHC: __NA___ Reviewed, yes or no _NA__ RHC _NA____ Echo: __x__ EF %: _55_ Labs:CBC x____ CMP __x__Creatinine __x__ PT/PTT __x__ INR ___x_ UA __x___ SA Swab __x___ Last Dose of Plavix PI's (R)____ (L) Carotid: __x__ Mapping: ____ Dental: __x__ PFT's: Op Note: ____ Pacemaker Check: ABO/ABO Confirmed/Blood ordered: __x___ Consults: DM: Cardiac Surgical prep: Congenital factor VIII disorder 09/02/2009 07/02/2017 Overview: PMHx: Hemophilia, 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 At home on 6400U Recombinate. Patient has been following with Dr. Lyons Plan: -Hematology consult - Continue Recombinate as scheduled -Monitor PT/PTT -IPCs Substance abuse in remission 06/17/2022 Last Assessment & Plan: Assessment: POA PLAN: Unsure of current treatment documented as of this encounter (statuses as of 01/27/2023) [facility]08[facility]2019 History of Past illness Narrative* Problem Noted Date Diagnosed Date Resolved Date Cerebrovascular accident (CV A) due to embolism of left carotid artery 01/18/2019 01/04/20 21 Recurrent major depression i n partial remission 01/18/2019 01/03/2021 Expressive aphasia 07/01/2017 Overview: Following Left frontal region of MCA: resultant expressive aphasia. Last Assessment & Plan: Moderate aphasia -Continue speech exercises Lung nodule 09/28/2015 05/28/2020 Overview: Assessment: Cardiac chest CT scan 09/10/2015 reported Stable 5 mm calcified nodule right upper lobe. Based on current guidelines*, a repeat follow-up unenhanced low-dose CT can be obtained in 12 months at clinical discretion. Plan: Pt is aware, follow up w/ local MD. Tooth decay 09/26/2015 05/28/2020 Overview: History: Preop dental evaluation revealed gross decay and chronic abscess of tooth #2 Assessment: Dental recommended extraction of tooth #2. Plan: After clearance from ID, CTS, Hematology, pt underwent extraction #2 on 09/27/15. Continue amicar x 1 more dose today per Hematology. Seizure 09/26/2015 05/28/2020 Overview: History: H/o seizures, on keppra preop Assessment: 09/20/15 post op seizure in ICU. No further events Plan: Continue keppra. Follow up w/ Neurology after discharge. Last Assessment & Plan: Post stroke epilepsy -Continue Keppra 750mg twice daily -Medication compliance encouraged Atelectasis 09/20/2015 05/28/2020 Overview: History: CXR 09/26: Small pleural effusions have near completely resolved. Improvement of by basilar atelectatic changes .No pneumothorax Assessment: Wt is well below preop, on room air Plan: Encourage ambulation, C&DB, PEP. Stop lasix. Stress hyperglycemia 09/20/2015 016 Overview: No h/o DM A/P: SSI. Hypovolemia 09/19/2015 09/24/2015 Overview: Post-op fluid shifts A/P: IVF resuscitation as needed. Essential hypertension 09/19/201501/03 Overview: History: no meds pre-op Assessment: SBP controlled Plan: continue metoprolol (changed to toprol XL), lisinopril. Follow up locally Last Assessment & Plan: Follow up with PCP Refill for Metoprolol provided Well controlled today. Severe aortic regurgitation 09/09/2015 01/03/2021 Overview: History: 4+ AR Assessment: 09/19/2015 Reop: AVR #27 CE, Ascending aortic root replacement with composite graft including #32 gelweave graft Surgical Pathology: A. Aortic valve, excision - Bicuspid aortic valve with severe calcification and severe fibrosis (gross diagnosis only). B. Ascending aorta and Hemashield graft, excision - Chronic dissection. Plan: ASA daily. Postop echo 09/24/15: - No AR. The peak gradient is 22 mmHg, the mean gradient is 14 mmHg - EF = 35 5% - The right ventricle is normal in size. Right ventricular systolic function is normal. Intracranial hemorrhage 09/09/201505/24 Overview: History: R occipital ICH/IVH 06/2014 s/p R temporal crani for evacuation. R frontal ICH/IVH 12/2014 s/p R frontal crani and hematoma evacuation. ; Cerebral angiogram was negative for aneurysm or AVM. Evaluated by Neurology preop: Pt has residual deficits from prior neurological insults-- mild expressive aphasia and dysarthria, slight decrease in sensation Right upper arm- chronic. Repeat MRI/MRA of brain completed preop 09/13/15 demonstrates no evidence of acute infarct, chronic stable infarcts previously described involving the L MCA territory Assessment: No acute issues. Stable post op Plan: Follow up as previously directed. Last Assessment & Plan: Assessment: H/O ICH x 2 s/p R temporal craniotomy (06/2014) and R frontal craniotomy (12/2014). Post-op pain 09/09/2015 05/28/2020 Overview: History: Pre-op h/o back pain treated w/ oxycodone 20mg q 6hrs prn and MS contin 30mg tid. MRI 09/08 no evidence of discitis or osteomyelitis. Assessment: Verbalizes adequate pain relief on preop regimen. Plan: Continue Tylenol, lidoderm, and preop regimen of Oxycodone 20mg q 6hrs prn and MS Contin 30mg tid Preop testing 01/30/2015 09/23/2015 Overview: Images from the original note were not included. [facility] PRE[facility] Surgeon: Emmanuel Wang M.D. Informed Consent Completed: No STS Score: AV Replacement Risk of Mortality: 2.61% Morbidity or Mortality: 29.84% Long Length of Stay: 16.325% Short Length of Stay: 15.915% Permanent Stroke: 2.899% Prolonged Ventilation: 22.329% DSW Infection: 0.168% Renal Failure: 5.656% Reoperation: 12.001% CAD: No Is intended procedure a CABG: No - is a beta jimmy ordered? No - reason: no documented CAD H & P completed: Yes PA/LAT: will need prior to surg CT: completed MRI:brain Completed LE US: N/A Cath: No Echo:Completed EKG: Completed EF %: 54% PI's: N/A Carotid: MRA of carotid: Completed Mapping: N/A Dental: Completed s/p extractions 12/2014 PFT's: N/A Recent Labs 01/30/15 0026 WBC 4.72 HB 9.9* HCT 30.4* PLT 185 INR 1.0 CREAT 0.75 UA: Normal HCG:N/A ABO/ABO Confirmed: Yes Blood ordered: Yes SA Swab: Yes - results: Negative Last Dose of Anticoagulation: heparin Op Note: Yes for surgery on 2009 Pacemaker Check: N/A Consults: ID, hematology DM: No Cardiac Surgical prep: Yes SIGNATURE: Ginette Luna CNP DATE of SERVICE: 01/30/2015 TIME of SERVICE: 4:19 PM Teri Gates CNP February 08, 2015 2:20 PM Pain 01/29/2015 05/28/2020 Overview: ,date--> increased narc dose for more optimal pain management. Endocarditis 01/29/2015 07/02/2017 Overview: History: January 29, 2015--> TTE completed--> continued changes c/w endocarditis on bicuspid aortic valve, similar to that seen on SABRA completed on 01/03/15. 01/30 cultures remain negative Assessment: WBC's WNL, afebrile Plan: Per ID: continue doxycline 100 mg po for possible Bartonella will review pathology of explanted valve with Dr Serrano when ready sequencing for Bartonella pending Stroke (cerebrum) 01/27/2015 01/03/2021 Overview: January 28, 2015--> likely cardioembolic. Following cardiology recs re: echo technque required for otpimal medcial dec. making wrt management/storke prevention. 01/30 as above January 31, 2015--> spoke to CTS staff who resuested a ntoe from stroke about recommended timing on Valve repalcement surgery, given his recent infarct. Also requested c/s from Hematology re: periop/intraop management of his primary coagulopathy. He also indicated that Mr. Harrington will need to undergo a SABRA and conv angio just prior to surgery, but alba snot need either study at this time. 07/29/17 Followed with [facility] -[facility] Last Assessment & Plan: Secondary to I.E -Symptoms stable -Continue speech exercises Seizure 01/27/2015 09/23/2015 Overview: AEDs: fosPHT and keppra January 28, 2015--> remains seizure free on PHTN and keppar. PHTN level 1.4 yday. continuing serial PHTN levels to confirm optimal. January 29, 2015--> switchiing to oral keppra. Fospheny stopped -continue on Keppra. DVT prophylaxis 01/02/2015 01/03/2021 Overview: Ambulatory SCDS No chemoprophylactic due to hemorrhage Congenital bicuspid aortic valve 01/02/2015 05/28/2020 Overview: Monitor: pt will follow outpatient. Infective endocarditis of aortic valve 01/01/2015 01/03/2021 Overview: History: Large vegetation on the [place] bicuspid aortic valve. 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 Was initially being medically managed w/ ceftriaxone/doxycline due to high surgical risk: redo status, hemophilia, spontaneous intracranial bleeds. Assessment: 09/19/2015 Reop: AVR #27 CE, Ascending aortic root replacement with composite graft including #32 Per ID note: Difficult to know exactly what the echodensities represent. His history does not robustly support a diagnosis of IE and GN may also be associated with Bartonella IE. He has been treated appropriately with antibiotics for Bartonella. Plan: Per ID recommendations: -continue oral 100 mg po for possible Bartonella -will review pathology of explanted valve with Dr Park today but report no evidence for IE -sequencing for Bartonella pending ( will plan on oral doxcycline until l results back) -no need for CoPAT Spoke to ID: ID will follow up on OR results, ok to discharge pt on doxycycline 100mg q 12 hrs Elevated blood pressure (not hypertension) 12/31/2014 05/28/2020 Overview: sBP < 140 sBP 110-130 Continue to monitor МАРИНА (acute kidney injury) 07/24/2014 Overview: Creat 2.11 Nephrology recs appreciated Na 137 ICH (intracerebral hemorrhage) 07/17/2014 05/28/2020 Overview: History: R occipital ICH/IVH 07/17/14 s/p R temporal crani for evacuation. R frontal ICH/IVH 12/2014 s/p R frontal crani and hematoma evacuation; Cerebral angiogram was negative for aneurysm or AVM - Embolic L MCA (M1) territory stroke in 01/2015 Assessment: AXOx3, mild aphasia, right hemianopsia Plan: speech and OT consult Last Assessment & Plan: R occipital ICH/IVH 07/17/14 s/p R temporal crani for evacuation. R frontal ICH/IVH 12/2014 s/p R frontal crani and hematoma evacuation -Cerebral angiogram was negative for aneurysm or AVM -Symptoms are stable Acute respiratory failure 07/17/2014 Overview: Patient intubated for surgery. 07/18 extubated post surgery. Chronic pain disorder 07/02/20122012 Overview: L arm pain, on percocet at home No with some distal L arm pain in distal radial distribution Plan: -Percolone q3, ?transition to long acting -Colace Aortic aneurysm without rupture 06/29/2012 06/30/2017 Overview: -MRI/MRA chest which revealed a slight interval increase in the size of the aneurysmal aortic root now measuring 5.2 cm (previously measuring 4.9 cm). No evidence of dissection. -HD stable, SBP: 111-131 Plan: -BP control -F/u CTS recs to confirm no intervention necessary -If no intervention necessary, likely d/c home soon given that there is no dissection Hyponatremia 12/12/2009 12/16/2009 Overview: Sodium WNL with aggressive diuresis. Was Likely dilutional etiology. Cont & taper diuretic. / Nonspecific T wave inversion. 12/12/2009 12/13/2009 Overview: Patient's EKG notable for T wave inversion in leads II, III, aVf a well as the anterior leads upon admission to [facility] 12/12 which was a change from baseline EKG 12/09. Patient denies CP and other subjective complaints/changes. Cardiac enzymes sent -CK & MB elevated & troponin near baseline. Will cont to check serial Ambrose. D/W Dr. Arce - no other intevention at this time. / Leucocytosis 12/11/2009 12/12/2009 Overview: 12/11 - Afebrile. Conitnue daily monitoring Acute renal insufficiency 12/11/2009 Overview: Post-op pre-renal bump in Cr to 1.47 12/11. Has since trended down with less aggressive diuresis. Cont with currect diuretic regimen as patient is fluid/volume overloaded. / Acute blood loss anemia 12/11/200901/2013 Overview: H/H remains stable today, 12/17. Demonstrated inc CT output 12/11 & was given protamine. Subsequently had drop in H/H to 6.6/19.1 & was transfused 1U PRBC on 12/12 & 2U PRBC 12/13. CT shows small loculated pericardial effuision - confirmed with TTE. Hematology following for factor VIII replacement Rx. / Acute Pulmonary Edema/Fluid overload. 12/11/2009 07/02/2012 Overview: Weight remains below pre-op. Cont PEP/C&DB/OOB/Ambulate. 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 He will subsequently receive 7,364 units (6,750 units +/- 10%) q 12 hours. Check a factor 8 assay level s/p 3 doses ( 12/10 at 1700) Given at 07:25 AM today. Primary service would like to transfuse 2 units FFP in the unit 12/10 -: Factor VIII assay on 12/10 normal.PTT high,PT normal.CT output minimal.await hematology regarding factor VIII therapy. Preop testing 12/02/2009 12/10/2009 Overview: Blank means still needed; x means completed; NA means not applicable Surgeon: _BWL___ Surgeon Visit: _X_ Informed Consent Completed: _X__ STS Score: unsupp CAD Yes/No __no__ Is intended procedure an Isolated CABG yes/no ___no___ If yes, is a beta jimmy ordered preop If no, why H & P: __x__ PA/LAT __x__ CXR: _x___ EKG: _x___ CT __x__ MRI ____ LE US ____ LHC: __NA___ Reviewed, yes or no _NA__ RHC _NA____ Echo: __x__ EF %: _55_ Labs:CBC x____ CMP __x__Creatinine __x__ PT/PTT __x__ INR ___x_ UA __x___ SA Swab __x___ Last Dose of Plavix PI's (R)____ (L) Carotid: __x__ Mapping: ____ Dental: __x__ PFT's: Op Note: ____ Pacemaker Check: ABO/ABO Confirmed/Blood ordered: __x___ Consults: DM: Cardiac Surgical prep: Congenital factor VIII disorder 09/02/2009 07/02/2017 Overview: PMHx: Hemophilia, 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 At home on [id number] Recombinate. Patient has been following with Dr. Lyons Plan: -Hematology consult - Continue Recombinate as scheduled -Monitor PT/PTT -IPCs Substance abuse in remission 06/17/2022 Last Assessment & Plan: Assessment: POA PLAN: Unsure of current treatment documented as of this encounter (statuses as of 02/11/2023) [facility]08-[facility]-2019 History of Past illness Narrative* Problem Noted Date Diagnosed Date Resolved Date Cerebrovascular accident (CV A) due to embolism of left carotid artery 01/18/2019 01/04/20 21 Recurrent major depression i n partial remission 01/18/2019 01/03/2021 Expressive aphasia 07/01/2017 Overview: Following Left frontal region of MCA: resultant expressive aphasia. Last Assessment & Plan: Moderate aphasia -Continue speech exercises Lung nodule 09/28/2015 05/28/2020 Overview: Assessment: Cardiac chest CT scan 09/10/2015 reported Stable 5 mm calcified nodule right upper lobe. Based on current guidelines*, a repeat follow-up unenhanced low-dose CT can be obtained in 12 months at clinical discretion. Plan: Pt is aware, follow up w/ local MD. Tooth decay 09/26/2015 05/28/2020 Overview: History: Preop dental evaluation revealed gross decay and chronic abscess of tooth #2 Assessment: Dental recommended extraction of tooth #2. Plan: After clearance from ID, CTS, Hematology, pt underwent extraction #2 on 09/27/15. Continue amicar x 1 more dose today per Hematology. Seizure 09/26/2015 05/28/2020 Overview: History: H/o seizures, on keppra preop Assessment: 09/20/15 post op seizure in ICU. No further events Plan: Continue keppra. Follow up w/ Neurology after discharge. Last Assessment & Plan: Post stroke epilepsy -Continue Keppra 750mg twice daily -Medication compliance encouraged Atelectasis 09/20/2015 05/28/2020 Overview: History: CXR 09/26: Small pleural effusions have near completely resolved. Improvement of by basilar atelectatic changes .No pneumothorax Assessment: Wt is well below preop, on room air Plan: Encourage ambulation, C&DB, PEP. Stop lasix. Stress hyperglycemia 09/20/2015 05/02/2 016 Overview: No h/o DM A/P: SSI. Hypovolemia 09/19/2015 09/24/2015 Overview: Post-op fluid shifts A/P: IVF resuscitation as needed. Essential hypertension 09/19/201501/03 Overview: History: no meds pre-op Assessment: SBP controlled Plan: continue metoprolol (changed to toprol XL), lisinopril. Follow up locally Last Assessment & Plan: Follow up with PCP Refill for Metoprolol provided Well controlled today. Severe aortic regurgitation 09/09/2015 01/03/2021 Overview: History: 4+ AR Assessment: 09/19/2015 Reop: AVR #27 CE, Ascending aortic root replacement with composite graft including #32 gelweave graft Surgical Pathology: A. Aortic valve, excision - Bicuspid aortic valve with severe calcification and severe fibrosis (gross diagnosis only). B. Ascending aorta and Hemashield graft, excision - Chronic dissection. Plan: ASA daily. Postop echo 09/24/15: - No AR. The peak gradient is 22 mmHg, the mean gradient is 14 mmHg - EF = 35 5% - The right ventricle is normal in size. Right ventricular systolic function is normal. Intracranial hemorrhage 09/09/201505/24 Overview: History: R occipital ICH/IVH 06/2014 s/p R temporal crani for evacuation. R frontal ICH/IVH 12/2014 s/p R frontal crani and hematoma evacuation. ; Cerebral angiogram was negative for aneurysm or AVM. Evaluated by Neurology preop: Pt has residual deficits from prior neurological insults-- mild expressive aphasia and dysarthria, slight decrease in sensation Right upper arm- chronic. Repeat MRI/MRA of brain completed preop 09/13/15 demonstrates no evidence of acute infarct, chronic stable infarcts previously described involving the L MCA territory Assessment: No acute issues. Stable post op Plan: Follow up as previously directed. Last Assessment & Plan: Assessment: H/O ICH x 2 s/p R temporal craniotomy (06/2014) and R frontal craniotomy (12/2014). Post-op pain 09/09/2015 05/28/2020 Overview: History: Pre-op h/o back pain treated w/ oxycodone 20mg q 6hrs prn and MS contin 30mg tid. MRI 09/08 no evidence of discitis or osteomyelitis. Assessment: Verbalizes adequate pain relief on preop regimen. Plan: Continue Tylenol, lidoderm, and preop regimen of Oxycodone 20mg q 6hrs prn and MS Contin 30mg tid Preop testing 01/30/2015 09/23/2015 Overview: Images from the original note were not included. [facility] PRE[facility] Surgeon: Emmanuel Wang M.D. Informed Consent Completed: No STS Score: AV Replacement Risk of Mortality: 2.61% Morbidity or Mortality: 29.84% Long Length of Stay: 16.325% Short Length of Stay: 15.915% Permanent Stroke: 2.899% Prolonged Ventilation: 22.329% DSW Infection: 0.168% Renal Failure: 5.656% Reoperation: 12.001% CAD: No Is intended procedure a CABG: No - is a beta jimmy ordered? No - reason: no documented CAD H & P completed: Yes PA/LAT: will need prior to surg CT: completed MRI:brain Completed LE US: N/A Cath: No Echo:Completed EKG: Completed EF %: 54% PI's: N/A Carotid: MRA of carotid: Completed Mapping: N/A Dental: Completed s/p extractions 12/2014 PFT's: N/A Recent Labs 01/30/15 0026 WBC 4.72 HB 9.9* HCT 30.4* PLT 185 INR 1.0 CREAT 0.75 UA: Normal HCG:N/A ABO/ABO Confirmed: Yes Blood ordered: Yes SA Swab: Yes - results: Negative Last Dose of Anticoagulation: heparin Op Note: Yes for surgery on 2009 Pacemaker Check: N/A Consults: ID, hematology DM: No Cardiac Surgical prep: Yes SIGNATURE: Ginette Luna CNP DATE of SERVICE: 01/30/2015 TIME of SERVICE: 4:19 PM Teri Gates CNP February 08, 2015 2:20 PM Pain 01/29/2015 05/28/2020 Overview: ,date--> increased narc dose for more optimal pain management. Endocarditis 01/29/2015 07/02/2017 Overview: History: January 29, 2015--> TTE completed--> continued changes c/w endocarditis on bicuspid aortic valve, similar to that seen on SABRA completed on 01/03/15. 01/30 cultures remain negative Assessment: WBC's WNL, afebrile Plan: Per ID: continue doxycline 100 mg po for possible Bartonella will review pathology of explanted valve with Dr Serrano when ready sequencing for Bartonella pending Stroke (cerebrum) 01/27/2015 01/03/2021 Overview: January 28, 2015--> likely cardioembolic. Following cardiology recs re: echo technque required for otpimal medcial dec. making wrt management/storke prevention. 01/30 as above January 31, 2015--> spoke to CTS staff who resuested a ntoe from stroke about recommended timing on Valve repalcement surgery, given his recent infarct. Also requested c/s from Hematology re: periop/intraop management of his primary coagulopathy. He also indicated that Mr. Harrington will need to undergo a SABRA and conv angio just prior to surgery, but alba snot need either study at this time. 07/29/17 Followed with [facility] Last Assessment & Plan: Secondary to I.E -Symptoms stable -Continue speech exercises Seizure 01/27/2015 09/23/2015 Overview: AEDs: fosPHT and keppra January 28, 2015--> remains seizure free on PHTN and keppar. PHTN level 1.4 yday. continuing serial PHTN levels to confirm optimal. January 29, 2015--> switchiing to oral keppra. Fospheny stopped -continue on Keppra. DVT prophylaxis 01/02/2015 01/03/2021 Overview: Ambulatory SCDS No chemoprophylactic due to hemorrhage Congenital bicuspid aortic valve 01/02/2015 05/28/2020 Overview: Monitor: pt will follow outpatient. Infective endocarditis of aortic valve 01/01/2015 01/03/2021 Overview: History: Large vegetation on the [place] bicuspid aortic valve. 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 Was initially being medically managed w/ ceftriaxone/doxycline due to high surgical risk: redo status, hemophilia, spontaneous intracranial bleeds. Assessment: 09/19/2015 Reop: AVR #27 CE, Ascending aortic root replacement with composite graft including #32 Per ID note: Difficult to know exactly what the echodensities represent. His history does not robustly support a diagnosis of IE and GN may also be associated with Bartonella IE. He has been treated appropriately with antibiotics for Bartonella. Plan: Per ID recommendations: -continue oral 100 mg po for possible Bartonella -will review pathology of explanted valve with Dr Park today but report no evidence for IE -sequencing for Bartonella pending ( will plan on oral doxcycline until l results back) -no need for CoPAT Spoke to ID: ID will follow up on OR results, ok to discharge pt on doxycycline 100mg q 12 hrs Elevated blood pressure (not hypertension) 12/31/2014 05/28/2020 Overview: sBP < 140 sBP 110-130 Continue to monitor МАРИНА (acute kidney injury) 07/24/2014 Overview: Creat 2.11 Nephrology recs appreciated Na 137 ICH (intracerebral hemorrhage) 07/17/2014 05/28/2020 Overview: History: R occipital ICH/IVH 07/17/14 s/p R temporal crani for evacuation. R frontal ICH/IVH 12/2014 s/p R frontal crani and hematoma evacuation; Cerebral angiogram was negative for aneurysm or AVM - Embolic L MCA (M1) territory stroke in 01/2015 Assessment: AXOx3, mild aphasia, right hemianopsia Plan: speech and OT consult Last Assessment & Plan: R occipital ICH/IVH 07/17/14 s/p R temporal crani for evacuation. R frontal ICH/IVH 12/2014 s/p R frontal crani and hematoma evacuation -Cerebral angiogram was negative for aneurysm or AVM -Symptoms are stable Acute respiratory failure 07/17/2014 Overview: Patient intubated for surgery. 07/18 extubated post surgery. Chronic pain disorder 07/02/20122012 Overview: L arm pain, on percocet at home No with some distal L arm pain in distal radial distribution Plan: -Percolone q3, ?transition to long acting -Colace Aortic aneurysm without rupture 06/29/2012 06/30/2017 Overview: -MRI/MRA chest which revealed a slight interval increase in the size of the aneurysmal aortic root now measuring 5.2 cm (previously measuring 4.9 cm). No evidence of dissection. -HD stable, SBP: 111-131 Plan: -BP control -F/u CTS recs to confirm no intervention necessary -If no intervention necessary, likely d/c home soon given that there is no dissection Hyponatremia 12/12/2009 12/16/2009 Overview: Sodium WNL with aggressive diuresis. Was Likely dilutional etiology. Cont & taper diuretic. / Nonspecific T wave inversion. 12/12/2009 12/13/2009 Overview: Patient's EKG notable for T wave inversion in leads II, III, aVf a well as the anterior leads upon admission to [facility] 12/12 which was a change from baseline EKG 12/09. Patient denies CP and other subjective complaints/changes. Cardiac enzymes sent -CK & MB elevated & troponin near baseline. Will cont to check serial Ambrose. D/W Dr. Arce - no other intevention at this time. / Leucocytosis 12/11/2009 12/12/2009 Overview: 12/11 - Afebrile. Conitnue daily monitoring Acute renal insufficiency 12/11/2009 Overview: Post-op pre-renal bump in Cr to 1.47 12/11. Has since trended down with less aggressive diuresis. Cont with currect diuretic regimen as patient is fluid/volume overloaded. / Acute blood loss anemia 12/11/2009 02/0 01/2013 Overview: H/H remains stable today, 12/17. Demonstrated inc CT output 12/11 & was given protamine. Subsequently had drop in H/H to 6.6/19.1 & was transfused 1U PRBC on 12/12 & 2U PRBC 12/13. CT shows small loculated pericardial effuision - confirmed with TTE. Hematology following for factor VIII replacement Rx. / Acute Pulmonary Edema/Fluid overload. 12/11/2009 07/02/2012 Overview: Weight remains below pre-op. Cont PEP/C&DB/OOB/Ambulate. 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 He will subsequently receive 7,364 units (6,750 units +/- 10%) q 12 hours. Check a factor 8 assay level s/p 3 doses ( 12/10 at 1700) Given at 07:25 AM today. Primary service would like to transfuse 2 units FFP in the unit 12/10: Factor VIII assay on 12/10 normal.PTT high,PT normal.CT output minimal.await hematology regarding factor VIII therapy. Preop testing 12/02/2009 12/10/2009 Overview: Blank means still needed; x means completed; NA means not applicable Surgeon: _BWL___ Surgeon Visit: _X_ Informed Consent Completed: _X__ STS Score: unsupp CAD Yes/No __no__ Is intended procedure an Isolated CABG yes/no ___no___ If yes, is a beta jimmy ordered preop If no, why H & P: __x__ PA/LAT __x__ CXR: _x___ EKG: _x___ CT __x__ MRI ____ LE US ____ LHC: __NA___ Reviewed, yes or no _NA__ RHC _NA____ Echo: __x__ EF %: _55_ Labs:CBC x____ CMP __x__Creatinine __x__ PT/PTT __x__ INR ___x_ UA __x___ SA Swab __x___ Last Dose of Plavix PI's (R)____ (L) Carotid: __x__ Mapping: ____ Dental: __x__ PFT's: Op Note: ____ Pacemaker Check: ABO/ABO Confirmed/Blood ordered: __x___ Consults: DM: Cardiac Surgical prep: Congenital factor VIII disorder 09/02/2009 07/02/2017 Overview: PMHx: Hemophilia, 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 At home on 6400U Recombinate. Patient has been following with Dr. Lyons Plan: -Hematology consult - Continue Recombinate as scheduled -Monitor PT/PTT -IPCs Substance abuse in remission 06/17/2022 Last Assessment & Plan: Assessment: POA PLAN: Unsure of current treatment documented as of this encounter (statuses as of 02/17/2023) [facility]2019 History of Past illness Narrative* Problem Noted Date Diagnosed Date Resolved Date Cerebrovascular accident (CV A) due to embolism of left carotid artery 01/18/2019 01/04/20 21 Recurrent major depression i n partial remission 01/18/2019 01/03/2021 Expressive aphasia 07/01/2017 Overview: Following Left frontal region of MCA: resultant expressive aphasia. Last Assessment & Plan: Moderate aphasia -Continue speech exercises Lung nodule 09/28/2015 05/28/2020 Overview: Assessment: Cardiac chest CT scan 09/10/2015 reported Stable 5 mm calcified nodule right upper lobe. Based on current guidelines*, a repeat follow-up unenhanced low-dose CT can be obtained in 12 months at clinical discretion. Plan: Pt is aware, follow up w/ local MD. Tooth decay 09/26/2015 05/28/2020 Overview: History: Preop dental evaluation revealed gross decay and chronic abscess of tooth #2 Assessment: Dental recommended extraction of tooth #2. Plan: After clearance from ID, CTS, Hematology, pt underwent extraction #2 on 09/27/15. Continue amicar x 1 more dose today per Hematology. Seizure 09/26/2015 05/28/2020 Overview: History: H/o seizures, on keppra preop Assessment: 09/20/15 post op seizure in ICU. No further events Plan: Continue keppra. Follow up w/ Neurology after discharge. Last Assessment & Plan: Post stroke epilepsy -Continue Keppra 750mg twice daily -Medication compliance encouraged Atelectasis 09/20/2015 05/28/2020 Overview: History: CXR 09/26: Small pleural effusions have near completely resolved. Improvement of by basilar atelectatic changes .No pneumothorax Assessment: Wt is well below preop, on room air Plan: Encourage ambulation, C&DB, PEP. Stop lasix. Stress hyperglycemia 09/20/2015 016 Overview: No h/o DM A/P: SSI. Hypovolemia 09/19/2015 09/24/2015 Overview: Post-op fluid shifts A/P: IVF resuscitation as needed. Essential hypertension 09/19/201501/03 Overview: History: no meds pre-op Assessment: SBP controlled Plan: continue metoprolol (changed to toprol XL), lisinopril. Follow up locally Last Assessment & Plan: Follow up with PCP Refill for Metoprolol provided Well controlled today. Severe aortic regurgitation 09/09/2015 01/03/2021 Overview: History: 4+ AR Assessment: 09/19/2015 Reop: AVR #27 CE, Ascending aortic root replacement with composite graft including #32 gelweave graft Surgical Pathology: A. Aortic valve, excision - Bicuspid aortic valve with severe calcification and severe fibrosis (gross diagnosis only). B. Ascending aorta and Hemashield graft, excision - Chronic dissection. Plan: ASA daily. Postop echo 09/24/15: - No AR. The peak gradient is 22 mmHg, the mean gradient is 14 mmHg - EF = 35 5% - The right ventricle is normal in size. Right ventricular systolic function is normal. Intracranial hemorrhage 09/09/201505/24 Overview: History: R occipital ICH/IVH 06/2014 s/p R temporal crani for evacuation. R frontal ICH/IVH 12/2014 s/p R frontal crani and hematoma evacuation. ; Cerebral angiogram was negative for aneurysm or AVM. Evaluated by Neurology preop: Pt has residual deficits from prior neurological insults-- mild expressive aphasia and dysarthria, slight decrease in sensation Right upper arm- chronic. Repeat MRI/MRA of brain completed preop 09/13/15 demonstrates no evidence of acute infarct, chronic stable infarcts previously described involving the L MCA territory Assessment: No acute issues. Stable post op Plan: Follow up as previously directed. Last Assessment & Plan: Assessment: H/O ICH x 2 s/p R temporal craniotomy (06/2014) and R frontal craniotomy (12/2014). Post-op pain 09/09/2015 05/28/2020 Overview: History: Pre-op h/o back pain treated w/ oxycodone 20mg q 6hrs prn and MS contin 30mg tid. MRI 09/08 no evidence of discitis or osteomyelitis. Assessment: Verbalizes adequate pain relief on preop regimen. Plan: Continue Tylenol, lidoderm, and preop regimen of Oxycodone 20mg q 6hrs prn and MS Contin 30mg tid Preop testing 01/30/2015 09/23/2015 Overview: Images from the original note were not included. [facility] PRE[facility] Surgeon: Emmanuel Wang M.D. Informed Consent Completed: No STS Score: AV Replacement Risk of Mortality: 2.61% Morbidity or Mortality: 29.84% Long Length of Stay: 16.325% Short Length of Stay: 15.915% Permanent Stroke: 2.899% Prolonged Ventilation: 22.329% DSW Infection: 0.168% Renal Failure: 5.656% Reoperation: 12.001% CAD: No Is intended procedure a CABG: No - is a beta jimmy ordered? No - reason: no documented CAD H & P completed: Yes PA/LAT: will need prior to surg CT: completed MRI:brain Completed LE US: N/A Cath: No Echo:Completed EKG: Completed EF %: 54% PI's: N/A Carotid: MRA of carotid: Completed Mapping: N/A Dental: Completed s/p extractions 12/2014 PFT's: N/A Recent Labs 01/30/15 0026 WBC 4.72 HB 9.9* HCT 30.4* PLT 185 INR 1.0 CREAT 0.75 UA: Normal HCG:N/A ABO/ABO Confirmed: Yes Blood ordered: Yes SA Swab: Yes - results: Negative Last Dose of Anticoagulation: heparin Op Note: Yes for surgery on 2009 Pacemaker Check: N/A Consults: ID, hematology DM: No Cardiac Surgical prep: Yes SIGNATURE: Ginette Luna CNP DATE of SERVICE: 01/30/2015 TIME of SERVICE: 4:19 PM Teri Gates CNP February 08, 2015 2:20 PM Pain 01/29/2015 05/28/2020 Overview: ,date--> increased narc dose for more optimal pain management. Endocarditis 01/29/2015 07/02/2017 Overview: History: January 29, 2015--> TTE completed--> continued changes c/w endocarditis on bicuspid aortic valve, similar to that seen on SABRA completed on 01/03/15. 01/30 cultures remain negative Assessment: WBC's WNL, afebrile Plan: Per ID: continue doxycline 100 mg po for possible Bartonella will review pathology of explanted valve with Dr Serrano when ready sequencing for Bartonella pending Stroke (cerebrum) 01/27/2015 01/03/2021 Overview: January 28, 2015--> likely cardioembolic. Following cardiology recs re: echo technque required for otpimal medcial dec. making wrt management/storke prevention. 01/30 as above January 31, 2015--> spoke to CTS staff who resuested a ntoe from stroke about recommended timing on Valve repalcement surgery, given his recent infarct. Also requested c/s from Hematology re: periop/intraop management of his primary coagulopathy. He also indicated that Mr. Harrington will need to undergo a SABRA and conv angio just prior to surgery, but alba snot need either study at this time. 07/29/17 Followed with [facility] -[facility] Last Assessment & Plan: Secondary to I.E -Symptoms stable -Continue speech exercises Seizure 01/27/2015 09/23/2015 Overview: AEDs: fosPHT and keppra January 28, 2015--> remains seizure free on PHTN and keppar. PHTN level 1.4 yday. continuing serial PHTN levels to confirm optimal. January 29, 2015--> switchiing to oral keppra. Fospheny stopped -continue on Keppra. DVT prophylaxis 01/02/2015 01/03/2021 Overview: Ambulatory SCDS No chemoprophylactic due to hemorrhage Congenital bicuspid aortic valve 01/02/2015 05/28/2020 Overview: Monitor: pt will follow outpatient. Infective endocarditis of aortic valve 01/01/2015 01/03/2021 Overview: History: Large vegetation on the [place] bicuspid aortic valve. 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 Was initially being medically managed w/ ceftriaxone/doxycline due to high surgical risk: redo status, hemophilia, spontaneous intracranial bleeds. Assessment: 09/19/2015 Reop: AVR #27 CE, Ascending aortic root replacement with composite graft including #32 Per ID note: Difficult to know exactly what the echodensities represent. His history does not robustly support a diagnosis of IE and GN may also be associated with Bartonella IE. He has been treated appropriately with antibiotics for Bartonella. Plan: Per ID recommendations: -continue oral 100 mg po for possible Bartonella -will review pathology of explanted valve with Dr Park today but report no evidence for IE -sequencing for Bartonella pending ( will plan on oral doxcycline until l results back) -no need for CoPAT Spoke to ID: ID will follow up on OR results, ok to discharge pt on doxycycline 100mg q 12 hrs Elevated blood pressure (not hypertension) 12/31/2014 05/28/2020 Overview: sBP < 140 sBP 110-130 Continue to monitor МАРИНА (acute kidney injury) 07/24/2014 Overview: Creat 2.11 Nephrology recs appreciated Na 137 ICH (intracerebral hemorrhage) 07/17/2014 05/28/2020 Overview: History: R occipital ICH/IVH 07/17/14 s/p R temporal crani for evacuation. R frontal ICH/IVH 12/2014 s/p R frontal crani and hematoma evacuation; Cerebral angiogram was negative for aneurysm or AVM - Embolic L MCA (M1) territory stroke in 01/2015 Assessment: AXOx3, mild aphasia, right hemianopsia Plan: speech and OT consult Last Assessment & Plan: R occipital ICH/IVH 07/17/14 s/p R temporal crani for evacuation. R frontal ICH/IVH 12/2014 s/p R frontal crani and hematoma evacuation -Cerebral angiogram was negative for aneurysm or AVM -Symptoms are stable Acute respiratory failure 07/17/2014 Overview: Patient intubated for surgery. 07/18 extubated post surgery. Chronic pain disorder 07/02/20122012 Overview: L arm pain, on percocet at home No with some distal L arm pain in distal radial distribution Plan: -Percolone q3, ?transition to long acting -Colace Aortic aneurysm without rupture 06/29/2012 06/30/2017 Overview: -MRI/MRA chest which revealed a slight interval increase in the size of the aneurysmal aortic root now measuring 5.2 cm (previously measuring 4.9 cm). No evidence of dissection. -HD stable, SBP: 111-131 Plan: -BP control -F/u CTS recs to confirm no intervention necessary -If no intervention necessary, likely d/c home soon given that there is no dissection Hyponatremia 12/12/2009 12/16/2009 Overview: Sodium WNL with aggressive diuresis. Was Likely dilutional etiology. Cont & taper diuretic. / Nonspecific T wave inversion. 12/12/2009 12/13/2009 Overview: Patient's EKG notable for T wave inversion in leads II, III, aVf a well as the anterior leads upon admission to [facility] 12/12 which was a change from baseline EKG 12/09. Patient denies CP and other subjective complaints/changes. Cardiac enzymes sent -CK & MB elevated & troponin near baseline. Will cont to check serial [place]. D/W Dr. Arce - no other intevention at this time. / Leucocytosis 12/11/2009 12/12/2009 Overview: 12/11 - Afebrile. Conitnue daily monitoring Acute renal insufficiency 12/11/2009 Overview: Post-op pre-renal bump in Cr to 1.47 12/11. Has since trended down with less aggressive diuresis. Cont with currect diuretic regimen as patient is fluid/volume overloaded. / Acute blood loss anemia 12/11/20092013 Overview: H/H remains stable today, 12/17. Demonstrated inc CT output 12/11 & was given protamine. Subsequently had drop in H/H to 6.6/19.1 & was transfused 1U PRBC on 12/12 & 2U PRBC 12/13. CT shows small loculated pericardial effuision - confirmed with TTE. Hematology following for factor VIII replacement Rx. / Acute Pulmonary Edema/Fluid overload. 12/11/2009 07/02/2012 Overview: Weight remains below pre-op. Cont PEP/C&DB/OOB/Ambulate. 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 He will subsequently receive 7,364 units (6,750 units +/- 10%) q 12 hours. Check a factor 8 assay level s/p 3 doses ( 12/10 at 1700) Given at 07:25 AM today. Primary service would like to transfuse 2 units FFP in the unit 12/10: Factor VIII assay on 12/10 normal.PTT high,PT normal.CT output minimal.await hematology regarding factor VIII therapy. Preop testing 12/02/2009 12/10/2009 Overview: Blank means still needed; x means completed; NA means not applicable Surgeon: _BWL___ Surgeon Visit: _X_ Informed Consent Completed: _X__ STS Score: unsupp CAD Yes/No __no__ Is intended procedure an Isolated CABG yes/no ___no___ If yes, is a beta jimmy ordered preop If no, why H & P: __x__ PA/LAT __x__ CXR: _x___ EKG: _x___ CT __x__ MRI ____ LE US ____ LHC: __NA___ Reviewed, yes or no _NA__ RHC _NA____ Echo: __x__ EF %: _55_ Labs:CBC x____ CMP __x__Creatinine __x__ PT/PTT __x__ INR ___x_ UA __x___ SA Swab __x___ Last Dose of Plavix PI's (R)____ (L) Carotid: __x__ Mapping: ____ Dental: __x__ PFT's: Op Note: ____ Pacemaker Check: ABO/ABO Confirmed/Blood ordered: __x___ Consults: DM: Cardiac Surgical prep: Congenital factor VIII disorder 09/02/2009 07/02/2017 Overview: PMHx: Hemophilia, 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 At home on 6400U Recombinate. Patient has been following with Dr. Lyons Plan: -Hematology consult - Continue Recombinate as scheduled -Monitor PT/PTT -IPCs Substance abuse in remission 06/17/2022 Last Assessment & Plan: Assessment: POA PLAN: Unsure of current treatment documented as of this encounter (statuses as of 07/22/2023) [facility] History of Past illness Narrative* Problem Noted Date Diagnosed Date Resolved Date Cerebrovascular accident (CV A) due to embolism of left carotid artery 01/18/2019 01/04/20 21 Recurrent major depression i n partial remission 01/18/2019 01/03/2021 Expressive aphasia 07/01/2017 Overview: Following Left frontal region of MCA: resultant expressive aphasia. Last Assessment & Plan: Moderate aphasia -Continue speech exercises Lung nodule 09/28/2015 05/28/2020 Overview: Assessment: Cardiac chest CT scan 09/10/2015 reported Stable 5 mm calcified nodule right upper lobe. Based on current guidelines*, a repeat follow-up unenhanced low-dose CT can be obtained in 12 months at clinical discretion. Plan: Pt is aware, follow up w/ local MD. Tooth decay 09/26/2015 05/28/2020 Overview: History: Preop dental evaluation revealed gross decay and chronic abscess of tooth #2 Assessment: Dental recommended extraction of tooth #2. Plan: After clearance from ID, CTS, Hematology, pt underwent extraction #2 on 09/27/15. Continue amicar x 1 more dose today per Hematology. Seizure 09/26/2015 05/28/2020 Overview: History: H/o seizures, on keppra preop Assessment: 09/20/15 post op seizure in ICU. No further events Plan: Continue keppra. Follow up w/ Neurology after discharge. Last Assessment & Plan: Post stroke epilepsy -Continue Keppra 750mg twice daily -Medication compliance encouraged Atelectasis 09/20/2015 05/28/2020 Overview: History: CXR 09/26: Small pleural effusions have near completely resolved. Improvement of by basilar atelectatic changes .No pneumothorax Assessment: Wt is well below preop, on room air Plan: Encourage ambulation, C&DB, PEP. Stop lasix. Stress hyperglycemia 09/20/2015 05 016 Overview: No h/o DM A/P: SSI. Hypovolemia 09/19/2015 09/24/2015 Overview: Post-op fluid shifts A/P: IVF resuscitation as needed. Essential hypertension 09/19/201501/03 Overview: History: no meds pre-op Assessment: SBP controlled Plan: continue metoprolol (changed to toprol XL), lisinopril. Follow up locally Last Assessment & Plan: Follow up with PCP Refill for Metoprolol provided Well controlled today. Severe aortic regurgitation 09/09/2015 01/03/2021 Overview: History: 4+ AR Assessment: 09/19/2015 Reop: AVR #27 CE, Ascending aortic root replacement with composite graft including #32 gelweave graft Surgical Pathology: A. Aortic valve, excision - Bicuspid aortic valve with severe calcification and severe fibrosis (gross diagnosis only). B. Ascending aorta and Hemashield graft, excision - Chronic dissection. Plan: ASA daily. Postop echo 09/24/15: - No AR. The peak gradient is 22 mmHg, the mean gradient is 14 mmHg - EF = 35 5% - The right ventricle is normal in size. Right ventricular systolic function is normal. Intracranial hemorrhage 09/09/201505/24 Overview: History: R occipital ICH/IVH 06/2014 s/p R temporal crani for evacuation. R frontal ICH/IVH 12/2014 s/p R frontal crani and hematoma evacuation. ; Cerebral angiogram was negative for aneurysm or AVM. Evaluated by Neurology preop: Pt has residual deficits from prior neurological insults-- mild expressive aphasia and dysarthria, slight decrease in sensation Right upper arm- chronic. Repeat MRI/MRA of brain completed preop 09/13/15 demonstrates no evidence of acute infarct, chronic stable infarcts previously described involving the L MCA territory Assessment: No acute issues. Stable post op Plan: Follow up as previously directed. Last Assessment & Plan: Assessment: H/O ICH x 2 s/p R temporal craniotomy (06/2014) and R frontal craniotomy (12/2014). Post-op pain 09/09/2015 05/28/2020 Overview: History: Pre-op h/o back pain treated w/ oxycodone 20mg q 6hrs prn and MS contin 30mg tid. MRI 09/08 no evidence of discitis or osteomyelitis. Assessment: Verbalizes adequate pain relief on preop regimen. Plan: Continue Tylenol, lidoderm, and preop regimen of Oxycodone 20mg q 6hrs prn and MS Contin 30mg tid Preop testing 01/30/2015 09/23/2015 Overview: Images from the original note were not included. [facility] PRE-OP CHECKLIST Surgeon: Emmanuel Wang M.D. Informed Consent Completed: No STS Score: AV Replacement Risk of Mortality: 2.61% Morbidity or Mortality: 29.84% Long Length of Stay: 16.325% Short Length of Stay: 15.915% Permanent Stroke: 2.899% Prolonged Ventilation: 22.329% DSW Infection: 0.168% Renal Failure: 5.656% Reoperation: 12.001% CAD: No Is intended procedure a CABG: No - is a beta jimmy ordered? No - reason: no documented CAD H & P completed: Yes PA/LAT: will need prior to surg CT: completed MRI:brain Completed LE US: N/A Cath: No Echo:Completed EKG: Completed EF %: 54% PI's: N/A Carotid: MRA of carotid: Completed Mapping: N/A Dental: Completed s/p extractions 12/2014 PFT's: N/A Recent Labs 01/30/15 0026 WBC 4.72 HB 9.9* HCT 30.4* PLT 185 INR 1.0 CREAT 0.75 UA: Normal HCG:N/A ABO/ABO Confirmed: Yes Blood ordered: Yes SA Swab: Yes - results: Negative Last Dose of Anticoagulation: heparin Op Note: Yes for surgery on 2009 Pacemaker Check: N/A Consults: ID, hematology DM: No Cardiac Surgical prep: Yes SIGNATURE: Ginette Luna CNP DATE of SERVICE: 01/30/2015 TIME of SERVICE: 4:19 PM Teri Gates CNP February 08, 2015 2:20 PM Pain 01/29/2015 05/28/2020 Overview: ,date--> increased narc dose for more optimal pain management. Endocarditis 01/29/2015 07/02/2017 Overview: History: January 29, 2015--> TTE completed--> continued changes c/w endocarditis on bicuspid aortic valve, similar to that seen on SABRA completed on 01/03/15. 01/30 cultures remain negative Assessment: WBC's WNL, afebrile Plan: Per ID: continue doxycline 100 mg po for possible Bartonella will review pathology of explanted valve with Dr Serrano when ready sequencing for Bartonella pending Stroke (cerebrum) 01/27/2015 01/03/2021 Overview: January 28, 2015--> likely cardioembolic. Following cardiology recs re: echo technque required for otpimal medcial dec. making wrt management/storke prevention. 01/30 as above January 31, 2015--> spoke to CTS staff who resuested a ntoe from stroke about recommended timing on Valve repalcement surgery, given his recent infarct. Also requested c/s from Hematology re: periop/intraop management of his primary coagulopathy. He also indicated that Mr. Harrington will need to undergo a SABRA and conv angio just prior to surgery, but alba snot need either study at this time. 07/29/17 Followed with [facility] Last Assessment & Plan: Secondary to I.E -Symptoms stable -Continue speech exercises Seizure 01/27/2015 09/23/2015 Overview: AEDs: fosPHT and keppra January 28, 2015--> remains seizure free on PHTN and keppar. PHTN level 1.4 yday. continuing serial PHTN levels to confirm optimal. January 29, 2015--> switchiing to oral keppra. Fospheny stopped -continue on Keppra. DVT prophylaxis 01/02/2015 01/03/2021 Overview: Ambulatory SCDS No chemoprophylactic due to hemorrhage Congenital bicuspid aortic valve 01/02/2015 05/28/2020 Overview: Monitor: pt will follow outpatient. Infective endocarditis of aortic valve 01/01/2015 01/03/2021 Overview: History: Large vegetation on the [place] bicuspid aortic valve. 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 Was initially being medically managed w/ ceftriaxone/doxycline due to high surgical risk: redo status, hemophilia, spontaneous intracranial bleeds. Assessment: 09/19/2015 Reop: AVR #27 CE, Ascending aortic root replacement with composite graft including #32 Per ID note: Difficult to know exactly what the echodensities represent. His history does not robustly support a diagnosis of IE and GN may also be associated with Bartonella IE. He has been treated appropriately with antibiotics for Bartonella. Plan: Per ID recommendations: -continue oral 100 mg po for possible Bartonella -will review pathology of explanted valve with Dr Park today but report no evidence for IE -sequencing for Bartonella pending ( will plan on oral doxcycline until l results back) -no need for CoPAT Spoke to ID: ID will follow up on OR results, ok to discharge pt on doxycycline 100mg q 12 hrs Elevated blood pressure (not hypertension) 12/31/2014 05/28/2020 Overview: sBP < 140 sBP 110-130 Continue to monitor МАРИНА (acute kidney injury) 07/24/2014 Overview: Creat 2.11 Nephrology recs appreciated Na 137 ICH (intracerebral hemorrhage) 07/17/2014 05/28/2020 Overview: History: R occipital ICH/IVH 07/17/14 s/p R temporal crani for evacuation. R frontal ICH/IVH 12/2014 s/p R frontal crani and hematoma evacuation; Cerebral angiogram was negative for aneurysm or AVM - Embolic L MCA (M1) territory stroke in 01/2015 Assessment: AXOx3, mild aphasia, right hemianopsia Plan: speech and OT consult Last Assessment & Plan: R occipital ICH/IVH 07/17/14 s/p R temporal crani for evacuation. R frontal ICH/IVH 12/2014 s/p R frontal crani and hematoma evacuation -Cerebral angiogram was negative for aneurysm or AVM -Symptoms are stable Acute respiratory failure 07/17/2014 Overview: Patient intubated for surgery. 07/18 extubated post surgery. Chronic pain disorder 07/02/20122012 Overview: L arm pain, on percocet at home No with some distal L arm pain in distal radial distribution Plan: -Percolone q3, ?transition to long acting -Colace Aortic aneurysm without rupture 06/29/2012 06/30/2017 Overview: -MRI/MRA chest which revealed a slight interval increase in the size of the aneurysmal aortic root now measuring 5.2 cm (previously measuring 4.9 cm). No evidence of dissection. -HD stable, SBP: 111-131 Plan: -BP control -F/u CTS recs to confirm no intervention necessary -If no intervention necessary, likely d/c home soon given that there is no dissection Hyponatremia 12/12/2009 12/16/2009 Overview: Sodium WNL with aggressive diuresis. Was Likely dilutional etiology. Cont & taper diuretic. / Nonspecific T wave inversion. 12/12/2009 12/13/2009 Overview: Patient's EKG notable for T wave inversion in leads II, III, aVf a well as the anterior leads upon admission to [facility] 12/12 which was a change from baseline EKG 12/09. Patient denies CP and other subjective complaints/changes. Cardiac enzymes sent -CK & MB elevated & troponin near baseline. Will cont to check serial Ambrose. D/W Dr. Arce - no other intevention at this time. / Leucocytosis 12/11/2009 12/12/2009 Overview: 12/11 - Afebrile. Conitnue daily monitoring Acute renal insufficiency 12/11/2009 Overview: Post-op pre-renal bump in Cr to 1.47 12/11. Has since trended down with less aggressive diuresis. Cont with currect diuretic regimen as patient is fluid/volume overloaded. / Acute blood loss anemia 12/11/2009 02/0 01/2013 Overview: H/H remains stable today, 12/17. Demonstrated inc CT output 12/11 & was given protamine. Subsequently had drop in H/H to 6.6/19.1 & was transfused 1U PRBC on 12/12 & 2U PRBC 12/13. CT shows small loculated pericardial effuision - confirmed with TTE. Hematology following for factor VIII replacement Rx. / Acute Pulmonary Edema/Fluid overload. 12/11/2009 07/02/2012 Overview: Weight remains below pre-op. Cont PEP/C&DB/OOB/Ambulate. 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 He will subsequently receive 7,364 units (6,750 units +/- 10%) q 12 hours. Check a factor 8 assay level s/p 3 doses ( 12/10 at 1700) Given at 07:25 AM today. Primary service would like to transfuse 2 units FFP in the unit 12/10 -: Factor VIII assay on 12/10 normal.PTT high,PT normal.CT output minimal.await hematology regarding factor VIII therapy. Preop testing 12/02/2009 12/10/2009 Overview: Blank means still needed; x means completed; NA means not applicable Surgeon: _BWL___ Surgeon Visit: _X_ Informed Consent Completed: _X__ STS Score: unsupp CAD Yes/No __no__ Is intended procedure an Isolated CABG yes/no ___no___ If yes, is a beta jimmy ordered preop If no, why H & P: __x__ PA/LAT __x__ CXR: _x___ EKG: _x___ CT __x__ MRI ____ LE US ____ LHC: __NA___ Reviewed, yes or no _NA__ RHC _NA____ Echo: __x__ EF %: _55_ Labs:CBC x____ CMP __x__Creatinine __x__ PT/PTT __x__ INR ___x_ UA __x___ SA Swab __x___ Last Dose of Plavix PI's (R)____ (L) Carotid: __x__ Mapping: ____ Dental: __x__ PFT's: Op Note: ____ Pacemaker Check: ABO/ABO Confirmed/Blood ordered: __x___ Consults: DM: Cardiac Surgical prep: Congenital factor VIII disorder 09/02/2009 07/02/2017 Overview: PMHx: Hemophilia, 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 At home on 6400U Recombinate. Patient has been following with Dr. Lyons Plan: -Hematology consult - Continue Recombinate as scheduled -Monitor PT/PTT -IPCs Substance abuse in remission 06/17/2022 Last Assessment & Plan: Assessment: POA PLAN: Unsure of current treatment documented as of this encounter (statuses as of 08/13/2023) [facility]08-28-[facility] History of Past illness Narrative* Problem Noted Date Diagnosed Date Resolved Date Cerebrovascular accident (CV A) due to embolism of left carotid artery 01/18/2019 01/04/20 21 Recurrent major depression i n partial remission 01/18/2019 01/03/2021 Expressive aphasia 07/01/2017 Overview: Following Left frontal region of MCA: resultant expressive aphasia. Last Assessment & Plan: Moderate aphasia -Continue speech exercises Lung nodule 09/28/2015 05/28/2020 Overview: Assessment: Cardiac chest CT scan 09/10/2015 reported Stable 5 mm calcified nodule right upper lobe. Based on current guidelines*, a repeat follow-up unenhanced low-dose CT can be obtained in 12 months at clinical discretion. Plan: Pt is aware, follow up w/ local MD. Tooth decay 09/26/2015 05/28/2020 Overview: History: Preop dental evaluation revealed gross decay and chronic abscess of tooth #2 Assessment: Dental recommended extraction of tooth #2. Plan: After clearance from ID, CTS, Hematology, pt underwent extraction #2 on 09/27/15. Continue amicar x 1 more dose today per Hematology. Seizure 09/26/2015 05/28/2020 Overview: History: H/o seizures, on keppra preop Assessment: 09/20/15 post op seizure in ICU. No further events Plan: Continue keppra. Follow up w/ Neurology after discharge. Last Assessment & Plan: Post stroke epilepsy -Continue Keppra 750mg twice daily -Medication compliance encouraged Atelectasis 09/20/2015 05/28/2020 Overview: History: CXR 09/26: Small pleural effusions have near completely resolved. Improvement of by basilar atelectatic changes .No pneumothorax Assessment: Wt is well below preop, on room air Plan: Encourage ambulation, C&DB, PEP. Stop lasix. Stress hyperglycemia 09/20/2015 016 Overview: No h/o DM A/P: SSI. Hypovolemia 09/19/2015 09/24/2015 Overview: Post-op fluid shifts A/P: IVF resuscitation as needed. Essential hypertension 09/19/201501/03 Overview: History: no meds pre-op Assessment: SBP controlled Plan: continue metoprolol (changed to toprol XL), lisinopril. Follow up locally Last Assessment & Plan: Follow up with PCP Refill for Metoprolol provided Well controlled today. Severe aortic regurgitation 09/09/2015 01/03/2021 Overview: History: 4+ AR Assessment: 09/19/2015 Reop: AVR #27 CE, Ascending aortic root replacement with composite graft including #32 gelweave graft Surgical Pathology: A. Aortic valve, excision - Bicuspid aortic valve with severe calcification and severe fibrosis (gross diagnosis only). B. Ascending aorta and Hemashield graft, excision - Chronic dissection. Plan: ASA daily. Postop echo 09/24/15: - No AR. The peak gradient is 22 mmHg, the mean gradient is 14 mmHg - EF = 35 5% - The right ventricle is normal in size. Right ventricular systolic function is normal. Intracranial hemorrhage 09/09/201505/24 Overview: History: R occipital ICH/IVH 06/2014 s/p R temporal crani for evacuation. R frontal ICH/IVH 12/2014 s/p R frontal crani and hematoma evacuation. ; Cerebral angiogram was negative for aneurysm or AVM. Evaluated by Neurology preop: Pt has residual deficits from prior neurological insults-- mild expressive aphasia and dysarthria, slight decrease in sensation Right upper arm- chronic. Repeat MRI/MRA of brain completed preop 09/13/15 demonstrates no evidence of acute infarct, chronic stable infarcts previously described involving the L MCA territory Assessment: No acute issues. Stable post op Plan: Follow up as previously directed. Last Assessment & Plan: Assessment: H/O ICH x 2 s/p R temporal craniotomy (06/2014) and R frontal craniotomy (12/2014). Post-op pain 09/09/2015 05/28/2020 Overview: History: Pre-op h/o back pain treated w/ oxycodone 20mg q 6hrs prn and MS contin 30mg tid. MRI 09/08 no evidence of discitis or osteomyelitis. Assessment: Verbalizes adequate pain relief on preop regimen. Plan: Continue Tylenol, lidoderm, and preop regimen of Oxycodone 20mg q 6hrs prn and MS Contin 30mg tid Preop testing 01/30/2015 09/23/2015 Overview: Images from the original note were not included. [facility] PRE[facility] CHECKLIST Surgeon: Emmanuel Wang M.D. Informed Consent Completed: No STS Score: AV Replacement Risk of Mortality: 2.61% Morbidity or Mortality: 29.84% Long Length of Stay: 16.325% Short Length of Stay: 15.915% Permanent Stroke: 2.899% Prolonged Ventilation: 22.329% DSW Infection: 0.168% Renal Failure: 5.656% Reoperation: 12.001% CAD: No Is intended procedure a CABG: No - is a beta jimmy ordered? No - reason: no documented CAD H & P completed: Yes PA/LAT: will need prior to surg CT: completed MRI:brain Completed LE US: N/A Cath: No Echo:Completed EKG: Completed EF %: 54% PI's: N/A Carotid: MRA of carotid: Completed Mapping: N/A Dental: Completed s/p extractions 12/2014 PFT's: N/A Recent Labs 01/30/15 0026 WBC 4.72 HB 9.9* HCT 30.4* PLT 185 INR 1.0 CREAT 0.75 UA: Normal HCG:N/A ABO/ABO Confirmed: Yes Blood ordered: Yes SA Swab: Yes - results: Negative Last Dose of Anticoagulation: heparin Op Note: Yes for surgery on 2009 Pacemaker Check: N/A Consults: ID, hematology DM: No Cardiac Surgical prep: Yes SIGNATURE: Ginette Luna CNP DATE of SERVICE: 01/30/2015 TIME of SERVICE: 4:19 PM Teri Gates CNP February 08, 2015 2:20 PM Pain 01/29/2015 05/28/2020 Overview: ,date--> increased narc dose for more optimal pain management. Endocarditis 01/29/2015 07/02/2017 Overview: History: January 29, 2015--> TTE completed--> continued changes c/w endocarditis on bicuspid aortic valve, similar to that seen on SABRA completed on 01/03/15. 01/30 cultures remain negative Assessment: WBC's WNL, afebrile Plan: Per ID: continue doxycline 100 mg po for possible Bartonella will review pathology of explanted valve with Dr Serrano when ready sequencing for Bartonella pending Stroke (cerebrum) 01/27/2015 01/03/2021 Overview: January 28, 2015--> likely cardioembolic. Following cardiology recs re: echo technque required for otpimal medcial dec. making wrt management/storke prevention. 01/30 as above January 31, 2015--> spoke to CTS staff who resuested a ntoe from stroke about recommended timing on Valve repalcement surgery, given his recent infarct. Also requested c/s from Hematology re: periop/intraop management of his primary coagulopathy. He also indicated that Mr. Harrington will need to undergo a SABRA and conv angio just prior to surgery, but alba snot need either study at this time. 07/29/17 Followed with [facility] neuro -vascular [facility] Last Assessment & Plan: Secondary to I.E -Symptoms stable -Continue speech exercises Seizure 01/27/2015 09/23/2015 Overview: AEDs: fosPHT and keppra January 28, 2015--> remains seizure free on PHTN and keppar. PHTN level 1.4 yday. continuing serial PHTN levels to confirm optimal. January 29, 2015--> switchiing to oral keppra. Fospheny stopped -continue on Keppra. DVT prophylaxis 01/02/2015 01/03/2021 Overview: Ambulatory SCDS No chemoprophylactic due to hemorrhage Congenital bicuspid aortic valve 01/02/2015 05/28/2020 Overview: Monitor: pt will follow outpatient. Infective endocarditis of aortic valve 01/01/2015 01/03/2021 Overview: History: Large vegetation on the [place] bicuspid aortic valve. 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 Was initially being medically managed w/ ceftriaxone/doxycline due to high surgical risk: redo status, hemophilia, spontaneous intracranial bleeds. Assessment: 09/19/2015 Reop: AVR #27 CE, Ascending aortic root replacement with composite graft including #32 Per ID note: Difficult to know exactly what the echodensities represent. His history does not robustly support a diagnosis of IE and GN may also be associated with Bartonella IE. He has been treated appropriately with antibiotics for Bartonella. Plan: Per ID recommendations: -continue oral 100 mg po for possible Bartonella -will review pathology of explanted valve with Dr Park today but report no evidence for IE -sequencing for Bartonella pending ( will plan on oral doxcycline until l results back) -no need for CoPAT Spoke to ID: ID will follow up on OR results, ok to discharge pt on doxycycline 100mg q 12 hrs Elevated blood pressure (not hypertension) 12/31/2014 05/28/2020 Overview: sBP < 140 sBP 110-130 Continue to monitor МАРИНА (acute kidney injury) 07/24/2014 Overview: Creat 2.11 Nephrology recs appreciated Na 137 ICH (intracerebral hemorrhage) 07/17/2014 05/28/2020 Overview: History: R occipital ICH/IVH 07/17/14 s/p R temporal crani for evacuation. R frontal ICH/IVH 12/2014 s/p R frontal crani and hematoma evacuation; Cerebral angiogram was negative for aneurysm or AVM - Embolic L MCA (M1) territory stroke in 01/2015 Assessment: AXOx3, mild aphasia, right hemianopsia Plan: speech and OT consult Last Assessment & Plan: R occipital ICH/IVH 07/17/14 s/p R temporal crani for evacuation. R frontal ICH/IVH 12/2014 s/p R frontal crani and hematoma evacuation -Cerebral angiogram was negative for aneurysm or AVM -Symptoms are stable Acute respiratory failure 07/17/2014 Overview: Patient intubated for surgery. 07/18 extubated post surgery. Chronic pain disorder 07/02/20122012 Overview: L arm pain, on percocet at home No with some distal L arm pain in distal radial distribution Plan: -Percolone q3, ?transition to long acting -Colace Aortic aneurysm without rupture 06/29/2012 06/30/2017 Overview: -MRI/MRA chest which revealed a slight interval increase in the size of the aneurysmal aortic root now measuring 5.2 cm (previously measuring 4.9 cm). No evidence of dissection. -HD stable, SBP: 111-131 Plan: -BP control -F/u CTS recs to confirm no intervention necessary -If no intervention necessary, likely d/c home soon given that there is no dissection Hyponatremia 12/12/2009 12/16/2009 Overview: Sodium WNL with aggressive diuresis. Was Likely dilutional etiology. Cont & taper diuretic. / Nonspecific T wave inversion. 12/12/2009 12/13/2009 Overview: Patient's EKG notable for T wave inversion in leads II, III, aVf a well as the anterior leads upon admission to [facility] 12/12 which was a change from baseline EKG 12/09. Patient denies CP and other subjective complaints/changes. Cardiac enzymes sent -CK & MB elevated & troponin near baseline. Will cont to check serial Ambrose. D/W Dr. Arce - no other intevention at this time. / Leucocytosis 12/11/2009 12/12/2009 Overview: 12/11 - Afebrile. Conitnue daily monitoring Acute renal insufficiency 12/11/2009 Overview: Post-op pre-renal bump in Cr to 1.47 12/11. Has since trended down with less aggressive diuresis. Cont with currect diuretic regimen as patient is fluid/volume overloaded. / Acute blood loss anemia 12/11/2009 02/0 01/2013 Overview: H/H remains stable today, 12/17. Demonstrated inc CT output 12/11 & was given protamine. Subsequently had drop in H/H to 6.6/19.1 & was transfused 1U PRBC on 12/12 & 2U PRBC 12/13. CT shows small loculated pericardial effuision - confirmed with TTE. Hematology following for factor VIII replacement Rx. / Acute Pulmonary Edema/Fluid overload. 12/11/2009 07/02/2012 Overview: Weight remains below pre-op. Cont PEP/C&DB/OOB/Ambulate. 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 He will subsequently receive 7,364 units (6,750 units +/- 10%) q 12 hours. Check a factor 8 assay level s/p 3 doses ( 12/10 at 1700) Given at 07:25 AM today. Primary service would like to transfuse 2 units FFP in the unit 12/10: Factor VIII assay on 12/10 normal.PTT high,PT normal.CT output minimal.await hematology regarding factor VIII therapy. Preop testing 12/02/2009 12/10/2009 Overview: Blank means still needed; x means completed; NA means not applicable Surgeon: _BWL___ Surgeon Visit: _X_ Informed Consent Completed: _X__ STS Score: unsupp CAD Yes/No __no__ Is intended procedure an Isolated CABG yes/no ___no___ If yes, is a beta jimmy ordered preop If no, why H & P: __x__ PA/LAT __x__ CXR: _x___ EKG: _x___ CT __x__ MRI ____ LE US ____ LHC: __NA___ Reviewed, yes or no _NA__ RHC _NA____ Echo: __x__ EF %: _55_ Labs:CBC x____ CMP __x__Creatinine __x__ PT/PTT __x__ INR ___x_ UA __x___ SA Swab __x___ Last Dose of Plavix PI's (R)____ (L) Carotid: __x__ Mapping: ____ Dental: __x__ PFT's: Op Note: ____ Pacemaker Check: ABO/ABO Confirmed/Blood ordered: __x___ Consults: DM: Cardiac Surgical prep: Congenital factor VIII disorder 09/02/2009 07/02/2017 Overview: PMHx: Hemophilia, 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 At home on 6400U Recombinate. Patient has been following with Dr. Lyons Plan: -Hematology consult - Continue Recombinate as scheduled -Monitor PT/PTT -IPCs Substance abuse in remission 06/17/2022 Last Assessment & Plan: Assessment: POA PLAN: Unsure of current treatment documented as of this encounter (statuses as of 08/17/2023) [facility] Complex partial seizures with consciousness impaired (HCC) Localization-related (focal) (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, without mention of intractable epilepsy [facility] Diagnosis Acute pain of left shoulder- Primary [facility] Diagnosis Upper back pain- Primary [facility] Diagnosis 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 [facility] Diagnosis Complex partial seizures with consciousness impaired (HCC) Localization-related (focal) (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, without mention of intractable epilepsy [facility] Diagnosis Mild episode of recurrent major depressive disorder (HCC) [facility] Diagnosis Avascular necrosis of bone (HCC)- Primary Aseptic necrosis of bone, site unspecified [facility] Diagnosis Complex partial seizures with consciousness impaired (HCC) Localization-related (focal) (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, without mention of intractable epilepsy [facility] Diagnosis Throat pain- Primary [facility] Diagnosis Hemophilia A (HCC)- Primary Congenital factor VIII disorder Anemia, blood loss 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 [facility] Diagnosis 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 [facility] Diagnosis Hematoma of scalp, subsequent encounter- Primary Lung nodules Other nonspecific abnormal finding of lung field Seizure disorder (HCC) Unspecified epilepsy without mention of intractable epilepsy Cellulitis of skin Cellulitis and abscess of unspecified site SAH (subarachnoid hemorrhage) (HCC) Subarachnoid hemorrhage 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 [facility] noteNo assessment information availableWToledo [facility] Work Phone: Evaluation note* Diagnosis Mild episode of recurrent major depressive disorder (HCC)- Primary Seizure disorder (HCC) Unspecified epilepsy without mention of intractable epilepsy [facility]* Diagnosis Partial symptomatic epilepsy with complex partial seizures, not intractable, without status epilepticus (HCC) [facility]* Diagnosis Mild episode of recurrent major depressive disorder (HCC) [facility] Diagnosis Hemophilia A (HCC)- Primary Congenital factor VIII disorder [facility] Diagnosis Mild episode of recurrent major depressive disorder (HCC) [facility] Diagnosis Mild episode of recurrent major depressive disorder (HCC)- Primary Seizure disorder (HCC) Unspecified epilepsy without mention of intractable epilepsy Screening for lipid disorders Encounter for immunization Need for other specified prophylactic vaccination against single bacterial disease [facility]* Diagnosis Hemophilia A (HCC)- Primary Congenital factor VIII disorder Hemophilic arthropathy (HCC) Congenital factor VIII disorder Anemia, blood loss Iron deficiency anemia secondary to blood loss (chronic) Iron deficiency anemia due to chronic blood loss Iron deficiency anemia secondary to blood loss (chronic) documented [facility]* Diagnosis 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 [facility]* Diagnosis Nontraumatic intracerebral hemorrhage, unspecified cerebral location, unspecified laterality (HCC)- Primary Cerebrovascular accident (CVA), unspecified mechanism (HCC) Seizure (HCC) Other convulsions Hemianopsia 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 Expressive aphasia Aphasia History of Left acute arterial ischemic stroke, MCA (middle cerebral artery) (HCC)- Primary Unspecified cerebral artery occlusion with cerebral infarction Seizure (HCC) Other convulsions Nontraumatic intracerebral hemorrhage, unspecified cerebral location, unspecified laterality (HCC) Essential hypertension Unspecified essential hypertension Preoperative examination- Primary Preoperative examination, unspecified 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 Intracranial hemorrhage (HCC) Unspecified intracranial hemorrhage Partial epilepsy with impairment of consciousness, intractable (HCC) Localization-related (focal) (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, with intractable epilepsy History of Left acute arterial ischemic stroke, MCA (middle cerebral artery) (HCC) Unspecified cerebral artery occlusion with cerebral infarction Pulmonary HTN (HCC) Other chronic pulmonary heart diseases 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 Thoracic aneurysm without mention of rupture Coarctation of aorta Coarctation of aorta (preductal) (postductal) Valvular heart disease Endocarditis, valve unspecified, unspecified cause Vegetation of heart valve Acute and subacute bacterial endocarditis 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, mixed, or unspecified nondependent drug abuse, in remission Depression, unspecified depression type Encounter for preoperative screening laboratory testing for COVID-19 virus Status epilepticus (HCC) Epileptic grand mal status Laceration of scalp, initial encounter Leukocytosis Leukocytosis, unspecified Intracranial hemorrhage (HCC) Unspecified intracranial hemorrhage H/O aortic coarctation repair Personal history of surgery to heart and great vessels, presenting hazards to health Vegetation of heart valve Acute and subacute bacterial endocarditis Hypernatremia Hyperosmolality and/or hypernatremia SAH (subarachnoid hemorrhage) (HCC)- Primary Subarachnoid hemorrhage Traumatic intracerebral hemorrhage with unknown loss of consciousness status, unspecified laterality, initial encounter (HCC) SAH (subarachnoid hemorrhage) ([facility]) [I60.9 (ICD-10-CM)] Subarachnoid hemorrhage Traumatic right-sided intracerebral hemorrhage with unknown loss of consciousness status, sequela (HCC) Pulmonary HTN (HCC) Other chronic pulmonary heart diseases 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, mixed, or unspecified nondependent drug abuse, in remission Seizure (HCC) Other convulsions 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 Seizure (HCC) Other convulsions 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, mixed, or unspecified nondependent drug abuse, in remission Pulmonary HTN (HCC) Other chronic pulmonary heart diseases ICH (intracerebral hemorrhage) (HCC) Intracerebral hemorrhage Substance abuse (HCC) Other, mixed, or unspecified nondependent drug abuse, unspecified 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 [facility] Diagnosis Nontraumatic intracerebral hemorrhage, unspecified cerebral location, unspecified laterality (HCC)- Primary Cerebrovascular accident (CVA), unspecified mechanism (HCC) Seizure (HCC) Other convulsions Hemianopsia 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 Expressive aphasia Aphasia History of Left acute arterial ischemic stroke, MCA (middle cerebral artery) ([facility])- Primary Unspecified cerebral artery occlusion with cerebral infarction [facility]izure [facility] [facility]) Other convulsions Nontraumatic intracerebral hemorrhage, unspecified cerebral location, unspecified laterality (HCC) Essential hypertension Unspecified essential hypertension Preoperative examination- Primary Preoperative examination, unspecified 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 Intracranial hemorrhage (HCC) Unspecified intracranial hemorrhage Partial epilepsy with impairment of consciousness, intractable (HCC) Localization-related (focal) (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, with intractable epilepsy History of Left acute arterial ischemic stroke, MCA (middle cerebral artery) ([facility]) Unspecified cerebral artery occlusion with cerebral infarction Pulmonary HTN (HCC) Other chronic pulmonary heart diseases 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 Thoracic aneurysm without mention of rupture Coarctation of aorta Coarctation of aorta (preductal) (postductal) Valvular heart disease Endocarditis, valve unspecified, unspecified cause Vegetation of heart valve Acute and subacute bacterial endocarditis 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, mixed, or unspecified nondependent drug abuse, in remission Depression, unspecified depression type Encounter for preoperative screening laboratory testing for COVID-19 virus Status epilepticus ([facility]) Epileptic grand mal status Laceration of scalp, initial encounter Leukocytosis Leukocytosis, unspecified Intracranial hemorrhage (HCC) Unspecified intracranial hemorrhage H/O aortic coarctation repair Personal history of surgery to heart and great vessels, presenting hazards to health Vegetation of heart valve Acute and subacute bacterial endocarditis Hypernatremia Hyperosmolality and/or hypernatremia SAH (subarachnoid hemorrhage) ([facility])- Primary Subarachnoid hemorrhage Traumatic intracerebral hemorrhage with unknown loss of consciousness status, unspecified laterality, initial encounter ([facility]) SAH (subarachnoid hemorrhage) ([facility]) [I60.9 (ICD-10-CM)] Subarachnoid hemorrhage Traumatic right-sided intracerebral hemorrhage with unknown loss of consciousness status, sequela (HCC) Pulmonary HTN (HCC) Other chronic pulmonary heart diseases 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, mixed, or unspecified nondependent drug abuse, in remission Seizure (HCC) Other convulsions 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 Seizure (HCC) Other convulsions 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, mixed, or unspecified nondependent drug abuse, in remission Pulmonary HTN (HCC) Other chronic pulmonary heart diseases ICH (intracerebral hemorrhage) (HCC) Intracerebral hemorrhage Substance abuse (HCC) Other, mixed, or unspecified nondependent drug abuse, unspecified Mild episode of recurrent major depressive disorder (HCC)- Primary Seizure disorder (HCC) Unspecified epilepsy without mention of intractable epilepsy Screening for lipid disorders Hypernatremia Hyperosmolality and/or hypernatremia Congenital bicuspid aortic valve Aneurysm of ascending aorta without rupture (HCC) Valvular heart disease Endocarditis, valve unspecified, unspecified cause Lung nodules Other nonspecific abnormal finding of lung field Encounter for immunization Need for other specified prophylactic vaccination against single bacterial disease [facility] Diagnosis Nontraumatic intracerebral hemorrhage, unspecified cerebral location, unspecified laterality (HCC)- Primary Cerebrovascular accident (CVA), unspecified mechanism (HCC) Seizure (HCC) Other convulsions Hemianopsia 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 Expressive aphasia Aphasia History of Left acute arterial ischemic stroke, MCA (middle cerebral artery) ([facility])- Primary Unspecified cerebral artery occlusion with cerebral infarction Seizure (HCC) Other convulsions Nontraumatic intracerebral hemorrhage, unspecified cerebral location, unspecified laterality (HCC) Essential hypertension Unspecified essential hypertension Preoperative examination- Primary Preoperative examination, unspecified 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 Intracranial hemorrhage (HCC) Unspecified intracranial hemorrhage Partial epilepsy with impairment of consciousness, intractable (HCC) Localization-related (focal) (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, with intractable epilepsy History of Left acute arterial ischemic stroke, MCA (middle cerebral artery) ([facility]) Unspecified cerebral artery occlusion with cerebral infarction Pulmonary HTN (HCC) Other chronic pulmonary heart diseases 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 Thoracic aneurysm without mention of rupture Coarctation of aorta Coarctation of aorta (preductal) (postductal) Valvular heart disease Endocarditis, valve unspecified, unspecified cause Vegetation of heart valve Acute and subacute bacterial endocarditis 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, mixed, or unspecified nondependent drug abuse, in remission Depression, unspecified depression type Encounter for preoperative screening laboratory testing for COVID-19 virus Status epilepticus ([facility]) Epileptic grand mal status Laceration of scalp, initial encounter Leukocytosis Leukocytosis, unspecified Intracranial hemorrhage (HCC) Unspecified intracranial hemorrhage H/O aortic coarctation repair Personal history of surgery to heart and great vessels, presenting hazards to health Vegetation of heart valve Acute and subacute bacterial endocarditis Hypernatremia Hyperosmolality and/or hypernatremia SAH (subarachnoid hemorrhage) ([facility])- Primary Subarachnoid hemorrhage Traumatic intracerebral hemorrhage with unknown loss of consciousness status, unspecified laterality, initial encounter ([facility]) SAH (subarachnoid hemorrhage) ([facility]) [I60.9 (ICD-10-CM)] Subarachnoid hemorrhage Traumatic right-sided intracerebral hemorrhage with unknown loss of consciousness status, sequela ([facility]) Pulmonary HTN ([facility]) Other chronic pulmonary heart diseases 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 ([facility]) Other, mixed, or unspecified nondependent drug abuse, in remission Seizure (HCC) Other convulsions 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 Seizure (HCC) Other convulsions Substance abuse in remission ([facility]) Other, mixed, or unspecified nondependent drug abuse, in remission Pulmonary HTN ([facility]) Other chronic pulmonary heart diseases ICH (intracerebral hemorrhage) ([facility]) Intracerebral hemorrhage Substance abuse ([facility]) Other, mixed, or unspecified nondependent drug abuse, unspecified Lung nodules Other nonspecific abnormal finding of lung field [facility] Diagnosis Nontraumatic intracerebral hemorrhage, unspecified cerebral location, unspecified laterality ([facility])- Primary Cerebrovascular accident (CVA), unspecified mechanism ([facility]) Seizure ([facility]) Other convulsions Hemianopsia 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 Expressive aphasia Aphasia History of Left acute arterial ischemic stroke, MCA (middle cerebral artery) ([facility])- Primary Unspecified cerebral artery occlusion with cerebral infarction Seizure ([facility]) Other convulsions Nontraumatic intracerebral hemorrhage, unspecified cerebral location, unspecified laterality ([facility]) Essential hypertension Unspecified essential hypertension Preoperative examination- Primary Preoperative examination, unspecified 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 Intracranial hemorrhage ([facility]) Unspecified intracranial hemorrhage Partial epilepsy with impairment of consciousness, intractable (HCC) Localization-related (focal) (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, with intractable epilepsy History of Left acute arterial ischemic stroke, MCA (middle cerebral artery) (HCC) Unspecified cerebral artery occlusion with cerebral infarction Pulmonary HTN (HCC) Other chronic pulmonary heart diseases 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 Thoracic aneurysm without mention of rupture Coarctation of aorta Coarctation of aorta (preductal) (postductal) Valvular heart disease Endocarditis, valve unspecified, unspecified cause Vegetation of heart valve Acute and subacute bacterial endocarditis 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, mixed, or unspecified nondependent drug abuse, in remission Depression, unspecified depression type Encounter for preoperative screening laboratory testing for COVID-19 virus Status epilepticus ([facility]) Epileptic grand mal status Laceration of scalp, initial encounter Leukocytosis Leukocytosis, unspecified Intracranial hemorrhage (HCC) Unspecified intracranial hemorrhage H/O aortic coarctation repair Personal history of surgery to heart and great vessels, presenting hazards to health Vegetation of heart valve Acute and subacute bacterial endocarditis Hypernatremia Hyperosmolality and/or hypernatremia SAH (subarachnoid hemorrhage) ([facility])- Primary Subarachnoid hemorrhage Traumatic intracerebral hemorrhage with unknown loss of consciousness status, unspecified laterality, initial encounter ([facility]) SAH (subarachnoid hemorrhage) ([facility]) [I60.9 (ICD-10-CM)] Subarachnoid hemorrhage Traumatic right-sided intracerebral hemorrhage with unknown loss of consciousness status, sequela (HCC) Pulmonary HTN (HCC) Other chronic pulmonary heart diseases 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, mixed, or unspecified nondependent drug abuse, in remission Seizure (HCC) Other convulsions 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 Seizure (HCC) Other convulsions 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, mixed, or unspecified nondependent drug abuse, in remission Pulmonary HTN (HCC) Other chronic pulmonary heart diseases ICH (intracerebral hemorrhage) (HCC) Intracerebral hemorrhage Substance abuse (HCC) Other, mixed, or unspecified nondependent drug abuse, unspecified H/O aortic coarctation repair- Primary Personal history of surgery to heart and great vessels, presenting hazards to health [facility] Diagnosis Nontraumatic intracerebral hemorrhage, unspecified cerebral location, unspecified laterality ([facility])- Primary Cerebrovascular accident (CVA), unspecified mechanism ([facility]) Seizure (HCC) Other convulsions Hemianopsia 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 Expressive aphasia Aphasia History of Left acute arterial ischemic stroke, MCA (middle cerebral artery) ([facility])- Primary Unspecified cerebral artery occlusion with cerebral infarction Seizure ([facility]) Other convulsions Nontraumatic intracerebral hemorrhage, unspecified cerebral location, unspecified laterality ([facility]) Essential hypertension Unspecified essential hypertension Preoperative examination- Primary Preoperative examination, unspecified 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 Intracranial hemorrhage (HCC) Unspecified intracranial hemorrhage Partial epilepsy with impairment of consciousness, intractable ([facility]) Localization-related (focal) (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, with intractable epilepsy History of Left acute arterial ischemic stroke, MCA (middle cerebral artery) ([facility]) Unspecified cerebral artery occlusion with cerebral infarction Pulmonary HTN ([facility]) Other chronic pulmonary heart diseases 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 Thoracic aneurysm without mention of rupture Coarctation of aorta Coarctation of aorta (preductal) (postductal) Valvular heart disease Endocarditis, valve unspecified, unspecified cause Vegetation of heart valve Acute and subacute bacterial endocarditis 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 ([facility]) Other, mixed, or unspecified nondependent drug abuse, in remission Depression, unspecified depression type Encounter for preoperative screening laboratory testing for COVID-19 virus Status epilepticus ([facility]) Epileptic grand mal status Laceration of scalp, initial encounter Leukocytosis Leukocytosis, unspecified Intracranial hemorrhage ([facility]) Unspecified intracranial hemorrhage H/O aortic coarctation repair Personal history of surgery to heart and great vessels, presenting hazards to health Vegetation of heart valve Acute and subacute bacterial endocarditis Hypernatremia Hyperosmolality and/or hypernatremia SAH (subarachnoid hemorrhage) ([facility])- Primary Subarachnoid hemorrhage Traumatic intracerebral hemorrhage with unknown loss of consciousness status, unspecified laterality, initial encounter ([facility]) SAH (subarachnoid hemorrhage) ([facility]) [I60.9 (ICD-10-CM)] Subarachnoid hemorrhage Traumatic right-sided intracerebral hemorrhage with unknown loss of consciousness status, sequela ([facility]) Pulmonary HTN ([facility]) Other chronic pulmonary heart diseases 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 ([facility]) Other, mixed, or unspecified nondependent drug abuse, in remission Seizure (HCC) Other convulsions 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 Seizure (HCC) Other convulsions 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, mixed, or unspecified nondependent drug abuse, in remission Pulmonary HTN (HCC) Other chronic pulmonary heart diseases ICH (intracerebral hemorrhage) (HCC) Intracerebral hemorrhage Substance abuse (HCC) Other, mixed, or unspecified nondependent drug abuse, unspecified Coarctation of aorta- Primary Coarctation of aorta (preductal) (postductal) Congenital bicuspid aortic valve Aneurysm of ascending aorta without rupture (HCC) [facility] Diagnosis Nontraumatic intracerebral hemorrhage, unspecified cerebral location, unspecified laterality (HCC)- Primary Cerebrovascular accident (CVA), unspecified mechanism (HCC) Seizure (HCC) Other convulsions Hemianopsia 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 Expressive aphasia Aphasia History of Left acute arterial ischemic stroke, MCA (middle cerebral artery) ([facility])- Primary Unspecified cerebral artery occlusion with cerebral infarction Seizure (HCC) Other convulsions Nontraumatic intracerebral hemorrhage, unspecified cerebral location, unspecified laterality (HCC) Essential hypertension Unspecified essential hypertension Preoperative examination- Primary Preoperative examination, unspecified 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 Intracranial hemorrhage (HCC) Unspecified intracranial hemorrhage Partial epilepsy with impairment of consciousness, intractable (HCC) Localization-related (focal) (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, with intractable epilepsy History of Left acute arterial ischemic stroke, MCA (middle cerebral artery) (HCC) Unspecified cerebral artery occlusion with cerebral infarction Pulmonary HTN (HCC) Other chronic pulmonary heart diseases 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 Thoracic aneurysm without mention of rupture Coarctation of aorta Coarctation of aorta (preductal) (postductal) Valvular heart disease Endocarditis, valve unspecified, unspecified cause Vegetation of heart valve Acute and subacute bacterial endocarditis 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, mixed, or unspecified nondependent drug abuse, in remission Depression, unspecified depression type Encounter for preoperative screening laboratory testing for COVID-19 virus Status epilepticus (HCC) Epileptic grand mal status Laceration of scalp, initial encounter Leukocytosis Leukocytosis, unspecified Intracranial hemorrhage (HCC) Unspecified intracranial hemorrhage H/O aortic coarctation repair Personal history of surgery to heart and great vessels, presenting hazards to health Vegetation of heart valve Acute and subacute bacterial endocarditis Hypernatremia Hyperosmolality and/or hypernatremia SAH (subarachnoid hemorrhage) (HCC)- Primary Subarachnoid hemorrhage Traumatic intracerebral hemorrhage with unknown loss of consciousness status, unspecified laterality, initial encounter ([facility]) SAH (subarachnoid hemorrhage) ([facility]) [I60.9 (ICD-10-CM)] Subarachnoid hemorrhage Traumatic right-sided intracerebral hemorrhage with unknown loss of consciousness status, sequela (HCC) Pulmonary HTN (HCC) Other chronic pulmonary heart diseases 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 Substance abuse in remission ([facility]) Other, mixed, or unspecified nondependent drug abuse, in remission Seizure ([facility]) Other convulsions 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 Seizure (HCC) Other convulsions 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, mixed, or unspecified nondependent drug abuse, in remission Pulmonary HTN ([facility]) Other chronic pulmonary heart diseases ICH (intracerebral hemorrhage) ([facility]) Intracerebral hemorrhage Substance abuse ([facility]) Other, mixed, or unspecified nondependent drug abuse, unspecified 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 [facility] Diagnosis Nontraumatic intracerebral hemorrhage, unspecified cerebral location, unspecified laterality ([facility])- Primary Cerebrovascular accident (CVA), unspecified mechanism ([facility]) Seizure ([facility]) Other convulsions Hemianopsia 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 Expressive aphasia Aphasia History of Left acute arterial ischemic stroke, MCA (middle cerebral artery) ([facility])- Primary Unspecified cerebral artery occlusion with cerebral infarction Seizure ([facility]) Other convulsions Nontraumatic intracerebral hemorrhage, unspecified cerebral location, unspecified laterality ([facility]) Essential hypertension Unspecified essential hypertension Preoperative examination- Primary Preoperative examination, unspecified 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 Intracranial hemorrhage (HCC) Unspecified intracranial hemorrhage Partial epilepsy with impairment of consciousness, intractable ([facility]) Localization-related (focal) (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, with intractable epilepsy History of Left acute arterial ischemic stroke, MCA (middle cerebral artery) ([facility]) Unspecified cerebral artery occlusion with cerebral infarction Pulmonary HTN (HCC) Other chronic pulmonary heart diseases 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 Thoracic aneurysm without mention of rupture Coarctation of aorta Coarctation of aorta (preductal) (postductal) Valvular heart disease Endocarditis, valve unspecified, unspecified cause Vegetation of heart valve Acute and subacute bacterial endocarditis 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, mixed, or unspecified nondependent drug abuse, in remission Depression, unspecified depression type Encounter for preoperative screening laboratory testing for COVID-19 virus Status epilepticus ([facility]) Epileptic grand mal status Laceration of scalp, initial encounter Leukocytosis Leukocytosis, unspecified Intracranial hemorrhage (HCC) Unspecified intracranial hemorrhage H/O aortic coarctation repair Personal history of surgery to heart and great vessels, presenting hazards to health Vegetation of heart valve Acute and subacute bacterial endocarditis Hypernatremia Hyperosmolality and/or hypernatremia SAH (subarachnoid hemorrhage) ([facility])- Primary Subarachnoid hemorrhage Traumatic intracerebral hemorrhage with unknown loss of consciousness status, unspecified laterality, initial encounter ([facility]) SAH (subarachnoid hemorrhage) ([facility]) [I60.9 (ICD-10-CM)] Subarachnoid hemorrhage Traumatic right-sided intracerebral hemorrhage with unknown loss of consciousness status, sequela ([facility]) Pulmonary HTN (HCC) Other chronic pulmonary heart diseases 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, mixed, or unspecified nondependent drug abuse, in remission Seizure (HCC) Other convulsions 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 Seizure (HCC) Other convulsions 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, mixed, or unspecified nondependent drug abuse, in remission Pulmonary HTN (HCC) Other chronic pulmonary heart diseases ICH (intracerebral hemorrhage) ([facility]) Intracerebral hemorrhage Substance abuse ([facility]) Other, mixed, or unspecified nondependent drug abuse, unspecified Hemophilia A (HCC)- Primary Congenital factor VIII disorder Iron deficiency anemia due to chronic blood loss Iron deficiency anemia secondary to blood loss (chronic) [facility] Diagnosis Nontraumatic intracerebral hemorrhage, unspecified cerebral location, unspecified laterality ([facility])- Primary Cerebrovascular accident (CVA), unspecified mechanism ([facility]) Seizure (HCC) Other convulsions Hemianopsia 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 Expressive aphasia Aphasia History of Left acute arterial ischemic stroke, MCA (middle cerebral artery) ([facility])- Primary Unspecified cerebral artery occlusion with cerebral infarction Seizure (HCC) Other convulsions Nontraumatic intracerebral hemorrhage, unspecified cerebral location, unspecified laterality (HCC) Essential hypertension Unspecified essential hypertension Preoperative examination- Primary Preoperative examination, unspecified 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 Intracranial hemorrhage (HCC) Unspecified intracranial hemorrhage Partial epilepsy with impairment of consciousness, intractable (HCC) Localization-related (focal) (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, with intractable epilepsy History of Left acute arterial ischemic stroke, MCA (middle cerebral artery) (HCC) Unspecified cerebral artery occlusion with cerebral infarction Pulmonary HTN (HCC) Other chronic pulmonary heart diseases 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 Thoracic aneurysm without mention of rupture Coarctation of aorta Coarctation of aorta (preductal) (postductal) Valvular heart disease Endocarditis, valve unspecified, unspecified cause Vegetation of heart valve Acute and subacute bacterial endocarditis 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, mixed, or unspecified nondependent drug abuse, in remission Depression, unspecified depression type Encounter for preoperative screening laboratory testing for COVID-19 virus Status epilepticus (HCC) Epileptic grand mal status Laceration of scalp, initial encounter Leukocytosis Leukocytosis, unspecified Intracranial hemorrhage (HCC) Unspecified intracranial hemorrhage H/O aortic coarctation repair Personal history of surgery to heart and great vessels, presenting hazards to health Vegetation of heart valve Acute and subacute bacterial endocarditis Hypernatremia Hyperosmolality and/or hypernatremia SAH (subarachnoid hemorrhage) ([facility])- Primary Subarachnoid hemorrhage Traumatic intracerebral hemorrhage with unknown loss of consciousness status, unspecified laterality, initial encounter ([facility]) SAH (subarachnoid hemorrhage) ([facility]) [I60.9 (ICD-10-CM)] Subarachnoid hemorrhage Traumatic right-sided intracerebral hemorrhage with unknown loss of consciousness status, sequela (HCC) Pulmonary HTN (HCC) Other chronic pulmonary heart diseases 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, mixed, or unspecified nondependent drug abuse, in remission Seizure (HCC) Other convulsions 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 Seizure (HCC) Other convulsions 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, mixed, or unspecified nondependent drug abuse, in remission Pulmonary HTN (HCC) Other chronic pulmonary heart diseases ICH (intracerebral hemorrhage) (HCC) Intracerebral hemorrhage Substance abuse (HCC) Other, mixed, or unspecified nondependent drug abuse, unspecified 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 Nontraumatic intracerebral hemorrhage, unspecified cerebral location, unspecified laterality ([facility])- Primary Cerebrovascular accident (CVA), unspecified mechanism ([facility]) Seizure (HCC) Other convulsions Hemianopsia 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 Expressive aphasia Aphasia History of Left acute arterial ischemic stroke, MCA (middle cerebral artery) ([facility])- Primary Unspecified cerebral artery occlusion with cerebral infarction Seizure ([facility]) Other convulsions Nontraumatic intracerebral hemorrhage, unspecified cerebral location, unspecified laterality ([facility]) Essential hypertension Unspecified essential hypertension Preoperative examination- Primary Preoperative examination, unspecified 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 Intracranial hemorrhage ([facility]) Unspecified intracranial hemorrhage Partial epilepsy with impairment of consciousness, intractable ([facility]) Localization-related (focal) (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, with intractable epilepsy History of Left acute arterial ischemic stroke, MCA (middle cerebral artery) ([facility]) Unspecified cerebral artery occlusion with cerebral infarction Pulmonary HTN ([facility]) Other chronic pulmonary heart diseases 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 Thoracic aneurysm without mention of rupture Coarctation of aorta ([facility]) Coarctation of aorta (preductal) (postductal) Valvular heart disease Endocarditis, valve unspecified, unspecified cause Vegetation of heart valve ([facility]) Acute and subacute bacterial endocarditis 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 ([facility]) Other, mixed, or unspecified nondependent drug abuse, in remission Depression, unspecified depression type Encounter for preoperative screening laboratory testing for COVID-19 virus Status epilepticus ([facility]) Epileptic grand mal status Laceration of scalp, initial encounter Leukocytosis Leukocytosis, unspecified Intracranial hemorrhage ([facility]) Unspecified intracranial hemorrhage H/O aortic coarctation repair Personal history of surgery to heart and great vessels, presenting hazards to health Vegetation of heart valve ([facility]) Acute and subacute bacterial endocarditis Hypernatremia Hyperosmolality and/or hypernatremia SAH (subarachnoid hemorrhage) ([facility])- Primary Subarachnoid hemorrhage Traumatic intracerebral hemorrhage with unknown loss of consciousness status, unspecified laterality, initial encounter ([facility]) SAH (subarachnoid hemorrhage) (HCC) [I60.9 (ICD-10-CM)] Subarachnoid hemorrhage Traumatic right-sided intracerebral hemorrhage with unknown loss of consciousness status, sequela Pulmonary HTN (HCC) Other chronic pulmonary heart diseases 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, mixed, or unspecified nondependent drug abuse, in remission Seizure (HCC) Other convulsions 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 Seizure (HCC) Other convulsions 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, mixed, or unspecified nondependent drug abuse, in remission Pulmonary HTN (HCC) Other chronic pulmonary heart diseases ICH (intracerebral hemorrhage) (HCC) Intracerebral hemorrhage Substance abuse (HCC) Other, mixed, or unspecified nondependent drug abuse, unspecified 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 [facility] Diagnosis Nontraumatic intracerebral hemorrhage, unspecified cerebral location, unspecified laterality ([facility])- Primary Cerebrovascular accident (CVA), unspecified mechanism ([facility]) Seizure (HCC) Other convulsions Hemianopsia 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 Expressive aphasia Aphasia History of Left acute arterial ischemic stroke, MCA (middle cerebral artery) ([facility])- Primary Unspecified cerebral artery occlusion with cerebral infarction Seizure (HCC) Other convulsions Nontraumatic intracerebral hemorrhage, unspecified cerebral location, unspecified laterality ([facility]) Essential hypertension Unspecified essential hypertension Preoperative examination- Primary Preoperative examination, unspecified 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 Intracranial hemorrhage (HCC) Unspecified intracranial hemorrhage Partial epilepsy with impairment of consciousness, intractable (HCC) Localization-related (focal) (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, with intractable epilepsy History of Left acute arterial ischemic stroke, MCA (middle cerebral artery) ([facility]) Unspecified cerebral artery occlusion with cerebral infarction Pulmonary HTN (HCC) Other chronic pulmonary heart diseases 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 Thoracic aneurysm without mention of rupture Coarctation of aorta (HCC) Coarctation of aorta (preductal) (postductal) Valvular heart disease Endocarditis, valve unspecified, unspecified cause Vegetation of heart valve (HCC) Acute and subacute bacterial endocarditis 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, mixed, or unspecified nondependent drug abuse, in remission Depression, unspecified depression type Encounter for preoperative screening laboratory testing for COVID-19 virus Status epilepticus (HCC) Epileptic grand mal status Laceration of scalp, initial encounter Leukocytosis Leukocytosis, unspecified Intracranial hemorrhage (HCC) Unspecified intracranial hemorrhage H/O aortic coarctation repair Personal history of surgery to heart and great vessels, presenting hazards to health Vegetation of heart valve ([facility]) Acute and subacute bacterial endocarditis Hypernatremia Hyperosmolality and/or hypernatremia SAH (subarachnoid hemorrhage) ([facility])- Primary Subarachnoid hemorrhage Traumatic intracerebral hemorrhage with unknown loss of consciousness status, unspecified laterality, initial encounter ([facility]) SAH (subarachnoid hemorrhage) ([facility]) [I60.9 (ICD-10-CM)] Subarachnoid hemorrhage Traumatic right-sided intracerebral hemorrhage with unknown loss of consciousness status, sequela Pulmonary HTN ([facility]) Other chronic pulmonary heart diseases 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 Substance abuse in remission ([facility]) Other, mixed, or unspecified nondependent drug abuse, in remission Seizure ([facility]) Other convulsions 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 Seizure ([facility]) Other convulsions Substance abuse in remission ([facility]) Other, mixed, or unspecified nondependent drug abuse, in remission Pulmonary HTN (HCC) Other chronic pulmonary heart diseases ICH (intracerebral hemorrhage) ([facility]) Intracerebral hemorrhage Substance abuse ([facility]) Other, mixed, or unspecified nondependent drug abuse, unspecified Systolic dysfunction- Primary Heart disease, unspecified Encounter for medication review and counseling Other specified [facility] Diagnosis Nontraumatic intracerebral hemorrhage, unspecified cerebral location, unspecified laterality ([facility])- Primary Cerebrovascular accident (CVA), unspecified mechanism ([facility]) Seizure ([facility]) Other convulsions Hemianopsia 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 Expressive aphasia Aphasia History of Left acute arterial ischemic stroke, MCA (middle cerebral artery) ([facility])- Primary Unspecified cerebral artery occlusion with cerebral infarction Seizure ([facility]) Other convulsions Nontraumatic intracerebral hemorrhage, unspecified cerebral location, unspecified laterality ([facility]) Essential hypertension Unspecified essential hypertension Preoperative examination- Primary Preoperative examination, unspecified 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 Intracranial hemorrhage (HCC) Unspecified intracranial hemorrhage Partial epilepsy with impairment of consciousness, intractable ([facility]) Localization-related (focal) (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, with intractable epilepsy History of Left acute arterial ischemic stroke, MCA (middle cerebral artery) (HCC) Unspecified cerebral artery occlusion with cerebral infarction Pulmonary HTN (HCC) Other chronic pulmonary heart diseases 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 Thoracic aneurysm without mention of rupture Coarctation of aorta (HCC) Coarctation of aorta (preductal) (postductal) Valvular heart disease Endocarditis, valve unspecified, unspecified cause Vegetation of heart valve (HCC) Acute and subacute bacterial endocarditis 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, mixed, or unspecified nondependent drug abuse, in remission Depression, unspecified depression type Encounter for preoperative screening laboratory testing for COVID-19 virus Status epilepticus ([facility]) Epileptic grand mal status Laceration of scalp, initial encounter Leukocytosis Leukocytosis, unspecified Intracranial hemorrhage (HCC) Unspecified intracranial hemorrhage H/O aortic coarctation repair Personal history of surgery to heart and great vessels, presenting hazards to health Vegetation of heart valve ([facility]) Acute and subacute bacterial endocarditis Hypernatremia Hyperosmolality and/or hypernatremia SAH (subarachnoid hemorrhage) ([facility])- Primary Subarachnoid hemorrhage Traumatic intracerebral hemorrhage with unknown loss of consciousness status, unspecified laterality, initial encounter ([facility]) SAH (subarachnoid hemorrhage) ([facility]) [I60.9 (ICD-10-CM)] Subarachnoid hemorrhage Traumatic right-sided intracerebral hemorrhage with unknown loss of consciousness status, sequela Pulmonary HTN (HCC) Other chronic pulmonary heart diseases 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 Substance abuse in remission ([facility]) Other, mixed, or unspecified nondependent drug abuse, in remission Seizure (HCC) Other convulsions 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 Seizure (HCC) Other convulsions 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, mixed, or unspecified nondependent drug abuse, in remission Pulmonary HTN (HCC) Other chronic pulmonary heart diseases ICH (intracerebral hemorrhage) ([facility]) Intracerebral hemorrhage Substance abuse ([facility]) Other, mixed, or unspecified nondependent drug abuse, unspecified 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 [facility] Diagnosis Nontraumatic intracerebral hemorrhage, unspecified cerebral location, unspecified laterality ([facility])- Primary Cerebrovascular accident (CVA), unspecified mechanism ([facility]) Seizure (HCC) Other convulsions Hemianopsia 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 Expressive aphasia Aphasia History of Left acute arterial ischemic stroke, MCA (middle cerebral artery) ([facility])- Primary Unspecified cerebral artery occlusion with cerebral infarction Seizure ([facility]) Other convulsions Nontraumatic intracerebral hemorrhage, unspecified cerebral location, unspecified laterality ([facility]) Essential hypertension Unspecified essential hypertension Preoperative examination- Primary Preoperative examination, unspecified 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 Intracranial hemorrhage (HCC) Unspecified intracranial hemorrhage Partial epilepsy with impairment of consciousness, intractable ([facility]) Localization-related (focal) (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, with intractable epilepsy History of Left acute arterial ischemic stroke, MCA (middle cerebral artery) ([facility]) Unspecified cerebral artery occlusion with cerebral infarction Pulmonary HTN ([facility]) Other chronic pulmonary heart diseases 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 Thoracic aneurysm without mention of rupture Coarctation of aorta ([facility]) Coarctation of aorta (preductal) (postductal) Valvular heart disease Endocarditis, valve unspecified, unspecified cause Vegetation of heart valve ([facility]) Acute and subacute bacterial endocarditis 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, mixed, or unspecified nondependent drug abuse, in remission Depression, unspecified depression type Encounter for preoperative screening laboratory testing for COVID-19 virus Status epilepticus ([facility]) Epileptic grand mal status Laceration of scalp, initial encounter Leukocytosis Leukocytosis, unspecified Intracranial hemorrhage ([facility]) Unspecified intracranial hemorrhage H/O aortic coarctation repair Personal history of surgery to heart and great vessels, presenting hazards to health Vegetation of heart valve ([facility]) Acute and subacute bacterial endocarditis Hypernatremia Hyperosmolality and/or hypernatremia SAH (subarachnoid hemorrhage) ([facility])- Primary Subarachnoid hemorrhage Traumatic intracerebral hemorrhage with unknown loss of consciousness status, unspecified laterality, initial encounter ([facility]) SAH (subarachnoid hemorrhage) ([facility]) [I60.9 (ICD-10-CM)] Subarachnoid hemorrhage Traumatic right-sided intracerebral hemorrhage with unknown loss of consciousness status, sequela Pulmonary HTN ([facility]) Other chronic pulmonary heart diseases 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, mixed, or unspecified nondependent drug abuse, in remission Seizure (HCC) Other convulsions 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 Seizure (HCC) Other convulsions 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, mixed, or unspecified nondependent drug abuse, in remission Pulmonary HTN (HCC) Other chronic pulmonary heart diseases ICH (intracerebral hemorrhage) (HCC) Intracerebral hemorrhage Substance abuse (HCC) Other, mixed, or unspecified nondependent drug abuse, unspecified Systolic dysfunction- Primary Heart disease, unspecified Encounter for medication review and counseling Other specified [facility] Diagnosis Nontraumatic intracerebral hemorrhage, unspecified cerebral location, unspecified laterality ([facility])- Primary Cerebrovascular accident (CVA), unspecified mechanism (HCC) Seizure (HCC) Other convulsions Hemianopsia 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 Expressive aphasia Aphasia History of Left acute arterial ischemic stroke, MCA (middle cerebral artery) ([facility])- Primary Unspecified cerebral artery occlusion with cerebral infarction Seizure ([facility]) Other convulsions Nontraumatic intracerebral hemorrhage, unspecified cerebral location, unspecified laterality ([facility]) Essential hypertension Unspecified essential hypertension Preoperative examination- Primary Preoperative examination, unspecified 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 Intracranial hemorrhage (HCC) Unspecified intracranial hemorrhage Partial epilepsy with impairment of consciousness, intractable (HCC) Localization-related (focal) (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, with intractable epilepsy History of Left acute arterial ischemic stroke, MCA (middle cerebral artery) ([facility]) Unspecified cerebral artery occlusion with cerebral infarction Pulmonary HTN (HCC) Other chronic pulmonary heart diseases 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 Thoracic aneurysm without mention of rupture Coarctation of aorta ([facility]) Coarctation of aorta (preductal) (postductal) Valvular heart disease Endocarditis, valve unspecified, unspecified cause Vegetation of heart valve (HCC) Acute and subacute bacterial endocarditis 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, mixed, or unspecified nondependent drug abuse, in remission Depression, unspecified depression type Encounter for preoperative screening laboratory testing for COVID-19 virus Status epilepticus (HCC) Epileptic grand mal status Laceration of scalp, initial encounter Leukocytosis Leukocytosis, unspecified Intracranial hemorrhage (HCC) Unspecified intracranial hemorrhage H/O aortic coarctation repair Personal history of surgery to heart and great vessels, presenting hazards to health Vegetation of heart valve ([facility]) Acute and subacute bacterial endocarditis Hypernatremia Hyperosmolality and/or hypernatremia SAH (subarachnoid hemorrhage) (HCC)- Primary Subarachnoid hemorrhage Traumatic intracerebral hemorrhage with unknown loss of consciousness status, unspecified laterality, initial encounter ([facility]) SAH (subarachnoid hemorrhage) ([facility]) [I60.9 (ICD-10-CM)] Subarachnoid hemorrhage Traumatic right-sided intracerebral hemorrhage with unknown loss of consciousness status, sequela Pulmonary HTN (HCC) Other chronic pulmonary heart diseases 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, mixed, or unspecified nondependent drug abuse, in remission Seizure (HCC) Other convulsions 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 Seizure (HCC) Other convulsions 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, mixed, or unspecified nondependent drug abuse, in remission Pulmonary HTN (HCC) Other chronic pulmonary heart diseases ICH (intracerebral hemorrhage) ([facility]) Intracerebral hemorrhage Substance abuse (HCC) Other, mixed, or unspecified nondependent drug abuse, unspecified Arthritis of both ankles- Primary Hemophilia ([facility]) Congenital factor VIII disorder History of CVA (cerebrovascular accident) Transient ischemic attack (TIA), and cerebral infarction without residual deficits [facility] Diagnosis Nontraumatic intracerebral hemorrhage, unspecified cerebral location, unspecified laterality ([facility])- Primary Cerebrovascular accident (CVA), unspecified mechanism ([facility]) Seizure ([facility]) Other convulsions Hemianopsia 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 Expressive aphasia Aphasia History of Left acute arterial ischemic stroke, MCA (middle cerebral artery) ([facility])- Primary Unspecified cerebral artery occlusion with cerebral infarction Seizure ([facility]) Other convulsions Nontraumatic intracerebral hemorrhage, unspecified cerebral location, unspecified laterality ([facility]) Essential hypertension Unspecified essential hypertension Preoperative examination- Primary Preoperative examination, unspecified 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 Intracranial hemorrhage (HCC) Unspecified intracranial hemorrhage Partial epilepsy with impairment of consciousness, intractable (HCC) Localization-related (focal) (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, with intractable epilepsy History of Left acute arterial ischemic stroke, MCA (middle cerebral artery) ([facility]) Unspecified cerebral artery occlusion with cerebral infarction Pulmonary HTN (HCC) Other chronic pulmonary heart diseases 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 Thoracic aneurysm without mention of rupture Coarctation of aorta (HCC) Coarctation of aorta (preductal) (postductal) Valvular heart disease Endocarditis, valve unspecified, unspecified cause Vegetation of heart valve (HCC) Acute and subacute bacterial endocarditis 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, mixed, or unspecified nondependent drug abuse, in remission Depression, unspecified depression type Encounter for preoperative screening laboratory testing for COVID-19 virus Status epilepticus ([facility]) Epileptic grand mal status Laceration of scalp, initial encounter Leukocytosis Leukocytosis, unspecified Intracranial hemorrhage (HCC) Unspecified intracranial hemorrhage H/O aortic coarctation repair Personal history of surgery to heart and great vessels, presenting hazards to health Vegetation of heart valve ([facility]) Acute and subacute bacterial endocarditis Hypernatremia Hyperosmolality and/or hypernatremia SAH (subarachnoid hemorrhage) ([facility])- Primary Subarachnoid hemorrhage Traumatic intracerebral hemorrhage with unknown loss of consciousness status, unspecified laterality, initial encounter ([facility]) SAH (subarachnoid hemorrhage) ([facility]) [I60.9 (ICD-10-CM)] Subarachnoid hemorrhage Traumatic right-sided intracerebral hemorrhage with unknown loss of consciousness status, sequela Pulmonary HTN ([facility]) Other chronic pulmonary heart diseases 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, mixed, or unspecified nondependent drug abuse, in remission Seizure (HCC) Other convulsions 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 Seizure (HCC) Other convulsions 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, mixed, or unspecified nondependent drug abuse, in remission Pulmonary HTN (HCC) Other chronic pulmonary heart diseases ICH (intracerebral hemorrhage) ([facility]) Intracerebral hemorrhage Substance abuse ([facility]) Other, mixed, or unspecified nondependent drug abuse, unspecified Pain Generalized [facility] Nontraumatic intracerebral hemorrhage, unspecified cerebral location, unspecified laterality ([facility])- Primary Cerebrovascular accident (CVA), unspecified mechanism ([facility]) Seizure ([facility]) Other convulsions Hemianopsia 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 Expressive aphasia Aphasia History of Left acute arterial ischemic stroke, MCA (middle cerebral artery) ([facility])- Primary Unspecified cerebral artery occlusion with cerebral infarction Seizure ([facility]) Other convulsions Nontraumatic intracerebral hemorrhage, unspecified cerebral location, unspecified laterality ([facility]) Essential hypertension Unspecified essential hypertension Preoperative examination- Primary Preoperative examination, unspecified 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 Intracranial hemorrhage (HCC) Unspecified intracranial hemorrhage Partial epilepsy with impairment of consciousness, intractable (HCC) Localization-related (focal) (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, with intractable epilepsy History of Left acute arterial ischemic stroke, MCA (middle cerebral artery) (HCC) Unspecified cerebral artery occlusion with cerebral infarction Pulmonary HTN (HCC) Other chronic pulmonary heart diseases 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 Thoracic aneurysm without mention of rupture Coarctation of aorta (HCC) Coarctation of aorta (preductal) (postductal) Valvular heart disease Endocarditis, valve unspecified, unspecified cause Vegetation of heart valve (HCC) Acute and subacute bacterial endocarditis 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, mixed, or unspecified nondependent drug abuse, in remission Depression, unspecified depression type Encounter for preoperative screening laboratory testing for COVID-19 virus Status epilepticus ([facility]) Epileptic grand mal status Laceration of scalp, initial encounter Leukocytosis Leukocytosis, unspecified Intracranial hemorrhage (HCC) Unspecified intracranial hemorrhage H/O aortic coarctation repair Personal history of surgery to heart and great vessels, presenting hazards to health Vegetation of heart valve ([facility]) Acute and subacute bacterial endocarditis Hypernatremia Hyperosmolality and/or hypernatremia SAH (subarachnoid hemorrhage) ([facility])- Primary Subarachnoid hemorrhage Traumatic intracerebral hemorrhage with unknown loss of consciousness status, unspecified laterality, initial encounter ([facility]) SAH (subarachnoid hemorrhage) ([facility]) [I60.9 (ICD-10-CM)] Subarachnoid hemorrhage Traumatic right-sided intracerebral hemorrhage with unknown loss of consciousness status, sequela Pulmonary HTN (HCC) Other chronic pulmonary heart diseases 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, mixed, or unspecified nondependent drug abuse, in remission Seizure (HCC) Other convulsions 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 Seizure (HCC) Other convulsions 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, mixed, or unspecified nondependent drug abuse, in remission Pulmonary HTN (HCC) Other chronic pulmonary heart diseases ICH (intracerebral hemorrhage) ([facility]) Intracerebral hemorrhage Substance abuse (HCC) Other, mixed, or unspecified nondependent drug abuse, unspecified Systolic dysfunction- Primary Heart disease, unspecified Encounter for medication review and counseling Other specified [facility] Additional Instructions You have 13 sutures total. 2 of them are absorbable, if they fall out before the others are removed no problem, if not they may all be cut out. No driving until you are cleared by your neurologist.[facility] Work Phone: Reason for referral (narrative)* Outpatient Procedure (Routine) - Pending Review Specialty Diagnoses / Procedures Referred By Andre hughes Referred To Contact [facility] [place] Diagnoses H/O aortic coarctation repair Procedures ECHO ECHO TTHRC R-T 2D W/WOM-MODE COMPL SPEC&[place] [address] [place] [address] [place] [address] Referral ID Status Reason Start Date Expiration Date Visits Requested Visits Authorized [id number] Pending Review Auto-Generat ed Referral 4 05/15/2025 1 1 * Outpatient Procedure (Routine) - Authorized Specialty Diagnoses / Procedures Referred By Andre hughes Referred To Contact [facility] Diagnoses H/O aortic coarctation repair Procedures ECG COMPLETE ECG ROUTINE ECG W/LEAST 12 LDS W/I&R Gal Steven [facility] [address] [facility] [place] [id number] [place] [address] Referral ID Status Reason Start Date Expiration Date Visits Requested Visits Authorized [id number] Authorized Auto-Generat ed Referral 4 05/15/2025 1 1 [facility] Summary Purpose Family History No Family History Records FoundNo Family History Records FoundNo Family History Records FoundNo Family History Records FoundNo Family History Records FoundNo Family History Records Found Advance Directives No Advanced Directives Records FoundDocuments on File 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 Date 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 Advance Directive(s) Advance Directive(s) 01/19/2021 12:20 PM Advance Directive(s) 01/09/2021 5:27 AM Advance Directive(s) 09/09/2015 4:41 PM Latest Code Status on File Code Status Date Activated Date Inactivated Comments Full Code 01/14/2021 5:04 PM 01/19/2021 10:14 AM Full Code 01/09/2021 6:19 PM 01/13/2021 8:56 PM Full Code Order Discussed With: Discussion Not M edically Appropriate Latest Code Status on File Code Status Date Activated Date Inactivated Comments Full Code 01/14/2021 5:04 PM 01/19/2021 10:14 AM Full Code 01/09/2021 6:19 PM 01/13/2021 8:56 PM Latest Code Status on File Code Status Date Activated Date Inactivated Comments Full Code 06/11/2022 9:22 PM Full Code Order Discussed With: Surrogate Decisi on Maker Surrogate Decision Maker Name: Deedee Harrington Surrogate Decision Maker Relationship: Parents Full Code 01/14/2021 5:04 PM 01/19/2021 10:14 AM Latest Code Status on File Code Status Date Activated Date Inactivated Comments Full Code 06/11/2022 9:22 PM 06/18/2022 4:40 PM Full Code 01/14/2021 5:04 PM 01/19/2021 10:14 AM Advance Directive Response Recorded Date/ Time Living Will No June 27 2:27am Power of Access Nurse No June 27, 2022 2:27am Latest Code Status on File Code Status Date Activated Date Inactivated Comments Full Code 06/11/2022 9:22 PM 06/18/2022 4:40 PM Latest Code Status on File Code Status Date Activated Date Inactivated Comments Full Code 06/11/2022 9:22 PM 06/18/2022 4:40 PM Question Answer Comments Full Code Order Discussed With: Surrogate Decisi on Maker Surrogate Decision Maker Name: Deedee Harrington Surrogate Decision Maker Relationship: Parents Code Status History Code Status Date Activated Date Inactivated Comments Full Code 01/14/2021 5:04 PM 01/19/2021 10:14 AM Full Code 01/09/2021 6:19 PM 01/13/2021 8:56 PM Question Answer Comments Full Code Order Discussed With: Discussion Not Medically Appropriate Date Activated Date Inactivated Comments 06/11/2022 9:22 PM 06/18/2022 4:40 PM Question Answer Comments Full Code Order Discussed With: Surrogate Decisi on Maker Surrogate Decision Maker Name: Deedee Harrington Surrogate Decision Maker Relationship: Parents Date Activated Date Inactivated Comments 01/14/2021 5:04 PM 01/19/2021 10:14 AM Date Activated Date Inactivated Comments 01/09/2021 6:19 PM 01/13/2021 8:56 PM Question Answer Comments Full Code Order Discussed With: Discussion Not M edically Appropriate Date Activated Date Inactivated Comments 06/11/2022 9:22 PM 06/18/2022 4:40 PM Question Answer Comments Full Code Order Discussed With: Surrogate Decisi on Maker Surrogate Decision Maker Name: Deedee Harrington Surrogate Decision Maker Relationship: Parents Date Activated Date Inactivated Comments 01/14/2021 5:04 PM 01/19/2021 10:14 AM Date Activated Date Inactivated Comments 01/09/2021 6:19 PM 01/13/2021 8:56 PM Question Answer Comments Full Code Order Discussed With: Discussion Not M edically Appropriate Advance Directive Response Recorded Date/ Time Living Will No August 22, 2024 1:20pm Do you have a Healthcare Power of Access Nurse? No August 22, 2024 1:20pm Reason for Referral Specialty Diagnoses / Procedures Referred By Andre t Referred To Contact MR IMAGING Procedures MRI ELBOW WO IVCON RT MRI ANY JT UPPER EXTREMITY W/O CONTRAST Bryanna James MD [address] [place] [address] Mr Imaging Referral ID Status Reason Start Date Expiration Date Visits Requested Visits Authorized [id number] Pending Review Auto-Generat ed Referral 02/08/2022 02/07/2023 1 1 Specialty Diagnoses / Procedures Referred By Herminiaac t Referred To Contact MR IMAGING Diagnoses Elbow pain, chronic Procedures MRI ELBOW WO IVCON RT MRI ANY JT UPPER EXTREMITY W/O CONTRAST Bryanna James MD [address] [place] [address] Mr Imaging Referral ID Status Reason Start Date Expiration Date V isits Requested Visits Authorized [id number] Closed Auto-Generate d Referral 01/23/2022 02/22/2022 1 1 Specialty Diagnoses / Procedures Referred By Contac t Referred To Contact Neurology Diagnoses Lung nodules Seizure disorder (HCC) Procedures CONSULT TO NEUROLOGY OFFICE/OUTPATIENT [facility] HIGH MDM 60-74 MINUTES Vonnie Man, SHIRA.CANCER CENTER DIRECTOR [address] [place] [address] Referral ID Status Reason Start Date Expiration Date Visits Requested Visits Authorized [id number] Authorized PCP Requested Referral 06/23/2022 06/23/2023 1 1 Specialty Diagnoses / Procedures Referred By Contac t Referred To Contact CT IMAGING Diagnoses Lung nodules Procedures CT CHEST WO IVCON DIAGNOSTIC COMPUTED TOMOGRAPHY THORAX W/O CNTRST Vonnie Man, SHIRA.CANCER CENTER DIRECTOR [address] [place] [address] Ct Imaging Referral ID Status Reason Start Date Expiration Date Visits Requested Visits Authorized [id number] Pending Review Auto-Generat ed Referral 12/21/2022 07/23/2023 1 1 Specialty Diagnoses / Procedures Referred By Contac t Referred To Contact Diagnoses Hemophilia A (HCC) Ayesha Turner MD [address] [facility] [address] [place] [address] Referral ID Status Reason Start Date Expiration Date Visits Re quested Visits Authorized [id number] Closed 1 1 Specialty Diagnoses / Procedures Referred By Contac t Referred To Contact CT IMAGING Diagnoses Lung nodules Procedures CT CHEST WO IVCON DIAGNOSTIC COMPUTED TOMOGRAPHY THORAX W/O CNTRST Vonnie Man, TURF KEEPER.CANCER CENTER DIRECTOR [address] [place] [address] [place] [id number] Referral ID Status Reason Start Date Expiration Date Visits Requested Visits Authorized [id number] Pending Review Auto-Generat ed Referral 05/01/2024 05/31/2025 1 1 Specialty Diagnoses / Procedures Referred By Contac t [facility] Diagnoses Congenital bicuspid aortic valve Aneurysm of ascending aorta without rupture (HCC) Valvular heart disease Procedures ECHO ECHO TTHRC R-T 2D W/WOM-MODE COMPL SPEC&COLR D Vonnie Man, TURF KEEPER.CANCER CENTER DIRECTOR [address] [place] [address] [facility] [address] [place] [address] Referral ID Status Reason Start Date Expiration Date Visits Requested Visits Authorized [id number] Pending Review Auto-Generat ed Referral 05/01/2024 05/01/2025 1 1 Specialty Diagnoses / Procedures Referred By Contac t Referred To Contact Cardiology Diagnoses Coarctation of aorta Congenital bicuspid aortic valve Aneurysm of ascending aorta without rupture (HCC) Procedures CONSULT TO [facility]ARDIOLOGY OFFICE[facility] Vonnie Man, TURF KEEPER.CANCER CENTER DIRECTOR [address] [place] [address] Referral ID Status Reason Start Date Expiration Date Visits Requested Visits Authorized [id number] Authorized PCP Requested Referral 05/05/2025 1 1 Medications Administered Section Inactive Administered Medications - up to 3 most recent administrations Medication Order MAR Action Action Date Dose Rate Site betamethasone acetate-betamethasone sodium phosphate 12 mg injection (CELESTONE) 12 mg, Injection - FOR ORTHO USE ONLY, ONE TIME INJECTION, 1 dose, Starting on Rosangela 03/05/22 at 1356, Until Rosangela 03/05/22 at 1356 Given 03/05/2022 1:56 PM EDT 12 mg Elbow, Right lidocaine (PF) 10 mg/mL (1 %) 2 mL injection (XYLOCAINE) 2 mL, Injection - FOR ORTHO USE ONLY, ONE TIME INJECTION, 1 dose, Starting on Rosangela 03/05/22 at 1356, Until Rosangela 03/05/22 at 1356 Given 03/05/2022 1:56 PM EDT 2 mL Elbow, Right Inactive Administered Medications - up to 3 most recent administrations Medication Order MAR Action Action Date Dose Rate Site fentaNYL 20 mcg/mL iv infusion in NaCl 0.9% 100 mL (SUBLIMAZE) 25-250 mcg/hr (1.25-12.5 mL/hr), INTRAVENOUS, CONTINUOUS, Starting on Rosangela 06/11/22 at 1900, Until Wed06/12/22 at 1351, Titrate to a RASS of -4 to -5 (deep sedation). Start at 50 mcg/hr or continue at current infusion rate. Titrate by 25-50 mcg/hr every 30-60 minutes. Contact LIP if dose adjusted by more than 50 mcg/hr within 30 minutes. If spontaneous awakening trial (SAT) indicated, turn infusion off and monitor. If SAT failure or patient's pain score is above goal, then re-start at one-half of the previous dose and titrate to RASS or pain score goal (as ordered above). Rate/Dose Change 06/11/2022 5:41 PM EST 100 mcg/hr 5 mL/hr IV fentaNYL 50 mcg bolus from bag (SUBLIMAZE) 50 mcg, INTRAVENOUS, Administer over 1 Minutes, ONCE, 1 dose, On Rosangela 06/11/22 at 1900, Administration method is bolus dose from bag via bolus feature on smart pump if this is the only medication running through the line (exception: IV fluids). Bolus from Bag 06/11/2022 5:13 PM EST 50 mcg IV NaCl 0.9% 500 mL iv bolus 500 mL, INTRAVENOUS, at 999 mL/hr, Administer over 0.5 Hours, ONCE, 1 dose, On Rosangela 06/11/22 at 1900 New Bag/Syringe/Moshe le 06/11/2022 7:00 PM EST 500 mL 999 mL/hr IV propofol infusion (DIPRIVAN) 5-60 mcg/kg/min 100 kg Order-specific weight (3-36 mL/hr), INTRAVENOUS, CONTINUOUS, Starting on Rosangela 06/11/22 at 1900, Until Wed06/12/22 at 1351, Titrate to a RASS of -4 to -5 (deep sedation). Start at 5-10 mcg/kg/min or continue at current infusion rate. Titrate by 2-5 mcg/kg/min every 2-5 minutes. Contact LIP if dose adjusted by more than 20 mcg/kg/min within 30 minutes. If spontaneous awakening trial (SAT) indicated, turn infusion off and monitor for SAT failure. If patient fails SAT per protocol, then re-start at one-half of the previous dose and titrate to RASS goal. EXPIRES 12 HOURS AFTER OPENED OR SPIKED Rate/Dose Change 06/11/2022 5:40 PM EST 25 mcg/kg/min 15 mL/hr IV Rate/Dose Change 06/11/2022 5:20 PM EST 35 mcg/kg/min 21 m L/hr IV Rate/Dose Change 06/11/2022 5:12 PM EST 25 mcg/kg/min 15 m L/hr IV Health Concerns Infection Onset Date Last Indicated Resolved Time COVID-19 Rule-Out 06/11/2022 06/11/2022 06/11/2022 3:20 PM EST Chief Complaint and Reason for Visit Chief Complaint laceration Chief Complaint Admit Date fallAugust 22, 2024 1:06 pm Additional Source Comments (unrecognized sect ion and content) No Status Records FoundNo Status Records FoundNo Status Records FoundNo Status Records FoundNo Status Records FoundNo Status Records Found INFORMATION SOURCE (unrecogn ized section and content) DATE CREATED AUTHOR 05/31/2019 [facility] DATE CREATED AUTHOR AUTHOR'S ORGANIZ ATION 01/19/2021 [facility] DATE CREATED AUTHOR AUTHOR'S ORGANIZ ATION 02/22/2022 [facility] DATE CREATED AUTHOR AUTHOR'S ORGANIZ ATION 08/28/2024 [facility] DATE CREATED AUTHOR AUTHOR'S ORGANIZ ATION 11/12/2024 [facility] DATE CREATED AUTHOR AUTHOR'S ORGANIZ ATION 03/01/2025 [facility] Source Comments (unrecognize d section and content) In the event this informatio n is protected by the Federal Confidentiality of Alcohol and Drug Abuse Patient Records regulations: The Federal rules restrict any use of the information to criminally investigate or prosecute any alcohol or drug abuse patient.[facility] the event this information is protected by the Federal Confidentiality of Alcohol and Drug Abuse Patient Records regulations: The Federal rules restrict any use of the information to criminally investigate or prosecute any alcohol or drug abuse patient.[facility] the event this information is protected by the Federal Confidentiality of Alcohol and Drug Abuse Patient Records regulations: The Federal rules restrict any use of the information to criminally investigate or prosecute any alcohol or drug abuse patient.[facility] the event this information is protected by the Federal Confidentiality of Alcohol and Drug Abuse Patient Records regulations: The Federal rules restrict any use of the information to criminally investigate or prosecute any alcohol or drug abuse patient.[facility] the event this information is protected by the Federal Confidentiality of Alcohol and Drug Abuse Patient Records regulations: The Federal rules restrict any use of the information to criminally investigate or prosecute any alcohol or drug abuse patient.[facility] the event this information is protected by the Federal Confidentiality of Alcohol and Drug Abuse Patient Records regulations: The Federal rules restrict any use of the information to criminally investigate or prosecute any alcohol or drug abuse patient.[facility] the event this information is protected by the Federal Confidentiality of Alcohol and Drug Abuse Patient Records regulations: The Federal rules restrict any use of the information to criminally investigate or prosecute any alcohol or drug abuse patient.[facility] the event this information is protected by the Federal Confidentiality of Alcohol and Drug Abuse Patient Records regulations: The Federal rules restrict any use of the information to criminally investigate or prosecute any alcohol or drug abuse patient.[facility] the event this information is protected by the Federal Confidentiality of Alcohol and Drug Abuse Patient Records regulations: The Federal rules restrict any use of the information to criminally investigate or prosecute any alcohol or drug abuse patient.[facility] the event this information is protected by the Federal Confidentiality of Alcohol and Drug Abuse Patient Records regulations: The Federal rules restrict any use of the information to criminally investigate or prosecute any alcohol or drug abuse patient.[facility] Hospital[facility] the event this information is protected by the Federal Confidentiality of Alcohol and Drug Abuse Patient Records regulations: The Federal rules restrict any use of the information to criminally investigate or prosecute any alcohol or drug abuse patient.[facility] Hospital[facility] the event this information is protected by the Federal Confidentiality of Alcohol and Drug Abuse Patient Records regulations: The Federal rules restrict any use of the information to criminally investigate or prosecute any alcohol or drug abuse patient.[facility] Hospital[facility] the event this information is protected by the Federal Confidentiality of Alcohol and Drug Abuse Patient Records regulations: The Federal rules restrict any use of the information to criminally investigate or prosecute any alcohol or drug abuse patient.[facility] Hospital[facility] the event this information is protected by the Federal Confidentiality of Alcohol and Drug Abuse Patient Records regulations: The Federal rules restrict any use of the information to criminally investigate or prosecute any alcohol or drug abuse patient.[facility] Hospital[facility] the event this information is protected by the Federal Confidentiality of Alcohol and Drug Abuse Patient Records regulations: The Federal rules restrict any use of the information to criminally investigate or prosecute any alcohol or drug abuse patient.[facility] HospitalIn the event this information is protected by the Federal Confidentiality of Alcohol and Drug Abuse Patient Records regulations: The Federal rules restrict any use of the information to criminally investigate or prosecute any alcohol or drug abuse patient.[facility] HospitalIn the event this information is protected by the Federal Confidentiality of Alcohol and Drug Abuse Patient Records regulations: The Federal rules restrict any use of the information to criminally investigate or prosecute any alcohol or drug abuse patient.[facility] HospitalIn the event this information is protected by the Federal Confidentiality of Alcohol and Drug Abuse Patient Records regulations: The Federal rules restrict any use of the information to criminally investigate or prosecute any alcohol or drug abuse patient.[facility] HospitalIn the event this information is protected by the Federal Confidentiality of Alcohol and Drug Abuse Patient Records regulations: The Federal rules restrict any use of the information to criminally investigate or prosecute any alcohol or drug abuse patient.[facility] HospitalIn the event this information is protected by the Federal Confidentiality of Alcohol and Drug Abuse Patient Records regulations: The Federal rules restrict any use of the information to criminally investigate or prosecute any alcohol or drug abuse patient.[facility] HospitalIn the event this information is protected by the Federal Confidentiality of Alcohol and Drug Abuse Patient Records regulations: The Federal rules restrict any use of the information to criminally investigate or prosecute any alcohol or drug abuse patient.[facility] HospitalIn the event this information is protected by the Federal Confidentiality of Alcohol and Drug Abuse Patient Records regulations: The Federal rules restrict any use of the information to criminally investigate or prosecute any alcohol or drug abuse patient.[facility] HospitalIn the event this information is protected by the Federal Confidentiality of Alcohol and Drug Abuse Patient Records regulations: The Federal rules restrict any use of the information to criminally investigate or prosecute any alcohol or drug abuse patient.[facility] HospitalIn the event this information is protected by the Federal Confidentiality of Alcohol and Drug Abuse Patient Records regulations: The Federal rules restrict any use of the information to criminally investigate or prosecute any alcohol or drug abuse patient.[facility] HospitalIn the event this information is protected by the Federal Confidentiality of Alcohol and Drug Abuse Patient Records regulations: The Federal rules restrict any use of the information to criminally investigate or prosecute any alcohol or drug abuse patient.[facility] HospitalIn the event this information is protected by the Federal Confidentiality of Alcohol and Drug Abuse Patient Records regulations: The Federal rules restrict any use of the information to criminally investigate or prosecute any alcohol or drug abuse patient.[facility] HospitalIn the event this information is protected by the Federal Confidentiality of Alcohol and Drug Abuse Patient Records regulations: The Federal rules restrict any use of the information to criminally investigate or prosecute any alcohol or drug abuse patient.[facility] HospitalIn the event this information is protected by the Federal Confidentiality of Alcohol and Drug Abuse Patient Records regulations: The Federal rules restrict any use of the information to criminally investigate or prosecute any alcohol or drug abuse patient.[facility] HospitalIn the event this information is protected by the Federal Confidentiality of Alcohol and Drug Abuse Patient Records regulations: The Federal rules restrict any use of the information to criminally investigate or prosecute any alcohol or drug abuse patient.[facility] HospitalIn the event this information is protected by the Federal Confidentiality of Alcohol and Drug Abuse Patient Records regulations: The Federal rules restrict any use of the information to criminally investigate or prosecute any alcohol or drug abuse patient.[facility] HospitalIn the event this information is protected by the Federal Confidentiality of Alcohol and Drug Abuse Patient Records regulations: The Federal rules restrict any use of the information to criminally investigate or prosecute any alcohol or drug abuse patient.[facility] HospitalIn the event this information is protected by the Federal Confidentiality of Alcohol and Drug Abuse Patient Records regulations: The Federal rules restrict any use of the information to criminally investigate or prosecute any alcohol or drug abuse patient.[facility] HospitalIn the event this information is protected by the Federal Confidentiality of Alcohol and Drug Abuse Patient Records regulations: The Federal rules restrict any use of the information to criminally investigate or prosecute any alcohol or drug abuse patient.[facility] HospitalIn the event this information is protected by the Federal Confidentiality of Alcohol and Drug Abuse Patient Records regulations: The Federal rules restrict any use of the information to criminally investigate or prosecute any alcohol or drug abuse patient.[facility] HospitalIn the event this information is protected by the Federal Confidentiality of Alcohol and Drug Abuse Patient Records regulations: The Federal rules restrict any use of the information to criminally investigate or prosecute any alcohol or drug abuse patient.[facility] HospitalIn the event this information is protected by the Federal Confidentiality of Alcohol and Drug Abuse Patient Records regulations: The Federal rules restrict any use of the information to criminally investigate or prosecute any alcohol or drug abuse patient.[facility] HospitalIn the event this information is protected by the Federal Confidentiality of Alcohol and Drug Abuse Patient Records regulations: The Federal rules restrict any use of the information to criminally investigate or prosecute any alcohol or drug abuse patient.[facility] HospitalIn the event this information is protected by the Federal Confidentiality of Alcohol and Drug Abuse Patient Records regulations: The Federal rules restrict any use of the information to criminally investigate or prosecute any alcohol or drug abuse patient.[facility] HospitalIn the event this information is protected by the Federal Confidentiality of Alcohol and Drug Abuse Patient Records regulations: The Federal rules restrict any use of the information to criminally investigate or prosecute any alcohol or drug abuse patient.[facility] HospitalIn the event this information is protected by the Federal Confidentiality of Alcohol and Drug Abuse Patient Records regulations: The Federal rules restrict any use of the information to criminally investigate or prosecute any alcohol or drug abuse patient.[facility] HospitalIn the event this information is protected by the Federal Confidentiality of Alcohol and Drug Abuse Patient Records regulations: The Federal rules restrict any use of the information to criminally investigate or prosecute any alcohol or drug abuse patient.[facility] HospitalIn the event this information is protected by the Federal Confidentiality of Alcohol and Drug Abuse Patient Records regulations: The Federal rules restrict any use of the information to criminally investigate or prosecute any alcohol or drug abuse patient.[facility] HospitalIn the event this information is protected by the Federal Confidentiality of Alcohol and Drug Abuse Patient Records regulations: The Federal rules restrict any use of the information to criminally investigate or prosecute any alcohol or drug abuse patient.[facility] HospitalIn the event this information is protected by the Federal Confidentiality of Alcohol and Drug Abuse Patient Records regulations: The Federal rules restrict any use of the information to criminally investigate or prosecute any alcohol or drug abuse patient.[facility] HospitalIn the event this information is protected by the Federal Confidentiality of Alcohol and Drug Abuse Patient Records regulations: The Federal rules restrict any use of the information to criminally investigate or prosecute any alcohol or drug abuse patient.[facility] HospitalIn the event this information is protected by the Federal Confidentiality of Alcohol and Drug Abuse Patient Records regulations: The Federal rules restrict any use of the information to criminally investigate or prosecute any alcohol or drug abuse patient.[facility] Reason for Visit (unrecogniz ed section and content) Reason Onset Date Comments Refill Request 07/15/2021 Reason Comments Refill Request Reason Comments Pain (LT) shoulder, middl e back pain rated 8, x 4 days denied accident/injury Follow Up Pt denied SOB, chest pain Reason Comments Recheck follow up from - L shoulder blade/upper back pain; no injury Reason Comments New Pain Reason Onset Date Comments Refill Request 01/28/2022 Specialty Diagnoses / Procedures Referred By Contac t Referred To Contact MR IMAGING Diagnoses Elbow pain, chronic Procedures MRI ELBOW WO IVCON RT MRI ANY JT UPPER EXTREMITY W/O CONTRAST Bryanna James MD [address] [place] [address] Mr Imaging Referral ID Status Reason Start Date Expiration Date V isits Requested Visits Authorized [id number] Closed Auto-Generate d Referral 01/23/2022 02/22/2022 1 1 Reason Comments Follow Up Here to go over MRI results Reason Comments x-ray needed for wire placement Wire bot hemal him x 1 week Reason Comments Established Patient Ov, 1 yr Reason Onset Date Comments Refill Request 05/20/2022 Reason Comments Critical Care Transport Reason Comments Transition Of Care [facility] main dc'd 3 Reason Comments Discussion Discuss increasing m laurie raymond, currently taking 40mg once daily. Reason Comments Follow Up Seizures Specialty Diagnoses / Procedures Referred By Contac t Referred To Contact Neurology Diagnoses Lung nodules Seizure disorder (HCC) Procedures CONSULT TO NEUROLOGY OFFICE/OUTPATIENT NEW HIGH MDM 60-74 MINUTES Vonnie Man, TURF KEEPER.CANCER CENTER DIRECTOR [address] [place] [address] Referral ID Status Reason Start Date Expiration Date V isits Requested Visits Authorized [id number] Closed PCP Requested Referral 06/23/2022 06/23/2023 1 1 Reason Onset Date Comments Outcomes 10/01/2022 90 day mRS Reason Onset Date Comments Refill Request 01/26/2023 Reason Onset Date Comments Refill Request 02/10/2023 Reason Comments Follow Up Medication Reason Comments Established Patient Ov Reason Comments Letter Reason Onset Date Comments Refill Request 08/14/2023 Reason Onset Date Comments Refill Request 12/29/2023 Reason Onset Date Comments Refill Request 01/27/2024 Reason Onset Date Comments Refill Request 04/25/2024 Out of medicatio n Reason Comments Establish Care Transfer of care bell Jacob Specialty Diagnoses / Procedures Referred By Contac t Referred To Contact CT IMAGING Diagnoses Lung nodules Procedures CT CHEST WO IVCON DIAGNOSTIC COMPUTED TOMOGRAPHY THORAX W/O CNTRST Vonnie Man, TURF KEEPER.CANCER CENTER DIRECTOR [address] [place] [address] [place] [address] Referral ID Status Reason Start Date Expiration Date V isits Requested Visits Authorized [id number] Closed Auto-Generate d Referral 05/02/2024 06/01/2024 1 1 Reason Comments Results Reason Comments Reason Comments Established Patient 1 YR OV Reason Onset Date Comments Refill Request 08/09/2024 Reason Onset Date Comments Refill Request 08/10/2024 Reason Onset Date Comments Refill Request 10/18/2024 Reason Comments Heart Failure Reason Comments New Reason Comments Radiology XR Specialty Diagnoses / Procedures Referred By Contac t Referred To Contact XR IMAGING Diagnoses Pain Procedures XR ANKLE GENERAL 3V AP/LAT/OBL BILATERAL RADEX ANKLE COMPLETE MINIMUM 3 VIEWS Victorino Moeller PA-C [address] [place] [id number] Phone: tel: fax: [facility] [place] [address] Referral ID Status Reason Start Date Expiration Date V isits Requested Visits Authorized [id number] Closed Auto-Generate d Referral 11/13/2024 12/13/2025 1 1 Care Teams (unrecognized sec tion and content) Hand Former Helper Relationship Specialty Start Date End Date Marcela Jacob PA-C [address] [place] [address] PCP - General Family Practice 07/01/17 Paulie Lyons [address] [place] [phone] Consulting Pain Management 03/13/15 Gal Steven MD [address] [place] [address] Primary Staff Physician Cardiology 08/09/18 Rich Dejesus MD [address] [place] [address] Home Care Physician Orthopedics 01/10/21 Randall Funes MD [address] [place] [address] Referring Orthopedics 01/10/21 Anais Mast, PT [address] [place] [address] Floor Covering Installer Post Acute Care 01/13/21 Hand Former Helper Relationship Specialty Start Date End Date Marcela Jacob PA-C [address] [place], [place] [id number] PCP - General Family Practice 07/01/17 Paulie Lyons [address] [place] [address] [phone] Consulting Pain Management 03/13/15 Gal Steven MD [address] [place] [address] Primary Staff Physician Cardiology 08/09/18 Rich Dejesus MD [address] [place] [address] Home Care Physician Orthopedics 01/10/21 Randall Funes MD [address] [place] [address] Referring Orthopedics 01/10/21 Anais Mast, PT [address] [place] [address] Floor Covering Installer Post Acute Care 01/13/21 Hand Former Helper Relationship Specialty Start Date End Date Marcela Jacob PA-C [address] [place] [address] PCP - General Family Practice 07/01/17 Paulie Lyons [address] [phone] Consulting Pain Management 03/13/15 Gal Steven MD [address] [place] [address] Primary Staff Physician Cardiology 08/09/18 Rich Dejesus MD [address] [place] [address] Home Care Physician Orthopedics 01/10/21 Randall Funes MD [address] [place] [address] Referring Orthopedics 01/10/21 Anais Mast, PT [address] [place] [address] Floor Covering Installer Post Acute Care 01/13/21 Hand Former Helper Relationship Specialty Start Date End Date Marcela Jacob PA-C [address] [place] [address] PCP - General Family Practice 07/01/17 Paulie Lyons Benjie [address] [phone] Consulting Pain Management 03/13/15 Gal Steven MD [address] [place] [address] Primary Staff Physician Cardiology 08/09/18 Rich Dejesus MD [address] [place] [address] Home Care Physician Orthopedics 01/10/21 Randall Funes MD [address] [place] [address] Referring Orthopedics 01/10/21 Anais Mast, PT [address] [place] [address] Floor Covering Installer Post Acute Care 01/13/21 Hand Former Helper Relationship Specialty Start Date End Date Marcela Jacob PA-C [address] [place] [address] PCP - General Family Practice 07/01/17 Paulie Lyons [address] [phone] Consulting Pain Management 03/13/15 Gal Steven MD [address] [place] [address] Primary Staff Physician Cardiology 08/09/18 Rich Dejesus MD [address] [place] [address] Home Care Physician Orthopedics 01/10/21 Randall Funes MD [address] [place] [address] Referring Orthopedics 01/10/21 Anais Mast, PT [address] [place] [address] Floor Covering Installer Post Acute Care 01/13/21 Hand Former Helper Relationship Specialty Start Date End Date Marcela Jacob PA-C [address] [place] [address] PCP - General Family Practice 07/01/17 Eloy, Paulie Waldrop [address] [place] [address] Consulting Pain Management 03/13/15 Gal Steven MD [address] [place] [address] Primary Staff Physician Cardiology 08/09/18 Rich Dejesus MD [address] [place] [address] Home Care Physician Orthopedics 01/10/21 Randall Funes MD [address] [place] [address] Referring Orthopedics 01/10/21 Anais Mast, PT [address] [place] [address] Floor Covering Installer Post Acute Care 01/13/21 Hand Former Helper Relationship Specialty Start Date End Date Marcela Jacob PA-C [address] [place] [address] PCP - General Family Practice 07/01/17 EloyPaulie griffith [address] [place] [address] Consulting Pain Management 03/13/15 Gal Steven MD [address] [place] [address] Primary Staff Physician Cardiology 08/09/18 Rich Dejesus MD [address] [place] [address] Home Care Physician Orthopedics 01/10/21 Randall Funes MD [address] [place] [address] Referring Orthopedics 01/10/21 Anais Mast, PT [address] [place] [address] Floor Covering Installer Post Acute Care 01/13/21 Hand Former Helper Relationship Specialty Start Date End Date Marcela Jacob PA-C [address] [place] [address] PCP - General Family Practice 07/01/17 Paulie Lyons [address] [phone] Consulting Pain Management 03/13/15 Gal Steven MD [address] [place] [address] Primary Staff Physician Cardiology 08/09/18 [place] [address] [place] [address] Home Care Physician Orthopedics 01/10/21 Randall Funes MD [address] [place] [address] Referring Orthopedics 01/10/21 Anais Mast, PT [address] [place] [address] Floor Covering Installer Post Acute Care 01/13/21 Hand Former Helper Relationship Specialty Start Date End Date Marcela Jacob PA-C [address] [place] [address] PCP - General Family Practice 07/01/17 Paulie Lyons [address] [phone] Consulting Pain Management 03/13/15 Gal Steven MD [address] [place] [address] Primary Staff Physician Cardiology 08/09/18 Rich Dejesus MD [address] [place] [address] Home Care Provider Orthopedics 01/10/21 Randall Funes MD [address] [place] [address] Referring Orthopedics 01/10/21 Anais Mast, PT [address] [place] [address] Floor Covering Installer Post Acute Care 01/13/21 Hand Former Helper Relationship Specialty Start Date End Date Marcela Jacob PA-C [address] [place] [address] PCP - General Family Medicine 07/01/17 Paulie Lyons [address] [phone] Consulting Pain Management 03/13/15 Gal Steven MD [address] [place] [address] Primary Staff Physician Cardiology 08/09/18 Rich Dejesus MD [address] [place] [address] Home Care Provider Orthopedics 01/10/21 Randall Funes MD [address] [place] [address] Referring Orthopedics 01/10/21 Anais Mast, PT [address] [place] [address] Floor Covering Installer Post Acute Care 01/13/21 Hand Former Helper Relationship Specialty Start Date End Date Marcela Jacob PA-C [address] [place] [address] PCP - General Family Medicine 07/01/17 Paulie Lyons [address] [place] [address] Consulting Pain Management 03/13/15 Gal Steven MD [address] [place] [address] Primary Staff Physician Cardiology 08/09/18 Rich Dejesus MD [address] [place] [address] Home Care Provider Orthopedics 01/10/21 Randall Funes MD [address] [place] [address] Referring Orthopedics 01/10/21 Anais Mast, PT [address] [place] [address] Floor Covering Installer Post Acute Care 01/13/21 Hand Former Helper Relationship Specialty Start Date End Date Marcela Jacob PA-C [address] [place] [address] PCP - General Family Medicine 07/01/17 Paulie Lyons [address] [place] [address] Consulting Pain Management 03/13/15 Gal Steven MD [address] [place] [address] Primary Staff Physician Cardiology 08/09/18 Rich Dejesus MD [address] [place] [address] Home Care Provider Orthopedics 01/10/21 Randall Funes MD [address] [place] [address] Referring Orthopedics 01/10/21 Anais Mast, PT [address] [place] [address] Floor Covering Installer Post Acute Care 01/13/21 Hand Former Helper Relationship Specialty Start Date End Date Marcela Jacob PA-C [address] [place], [place] [id number] PCP - General Family Medicine 07/01/17 Paulie Lyons [address] [phone] Consulting Pain Management 03/13/15 Gal Steven MD [address] [place] [address] Primary Staff Physician Cardiology 08/09/18 Rich Dejesus MD [address] [place] [address] Home Care Provider Orthopedics 01/10/21 Randall Funes MD [address] [place] [address] Referring Orthopedics 01/10/21 Anais Mast, PT [address] [place] [address] Floor Covering Installer Post Acute Care 01/13/21 Hand Former Helper Relationship Specialty Start Date End Date Marcela Jacob PA-C [address] [place], [place] [id number] PCP - General Family Medicine [facility]01/17 [facility] [address] [facility] [address] [place] [address] Consulting Pain Management 03/13/15 Gal Steven MD [address] [place] [address] Primary Staff Physician Cardiology 08/09/18 Rich Dejesus MD [address] [place] [address] Home Care Provider Orthopedics 01/10/21 Randall Funes MD [address] [place] [address] Referring Orthopedics 01/10/21 Anais Mast, PT [address] [place] [address] Floor Covering Installer Post Acute Care 01/13/21 Hand Former Helper Relationship Specialty Start Date End Date Marcela Jacob, PA-C [address] [place] [address] PCP - General Family Medicine 07/01/17 [facility] Paulie Waldrop [address] [address] Consulting Pain Management 03/13/15 Gal Steven MD [address] [place] [address] Primary Staff Physician Cardiology 08/09/18 Rich Dejesus MD [address] [place] [address] Home Care Provider Orthopedics 01/10/21 Randall Funes MD [address] [place] [address] Referring Orthopedics 01/10/21 Anais Mast, PT [address] [place] [address] Floor Covering Installer Post Acute Care 01/13/21 Hand Former Helper Relationship Specialty Start Date End Date Marcela Jacob PA-C [address] [place] [address] PCP - General Family Medicine 07/01/17 Paulie Lyons [address] [phone] Consulting Pain Management 03/13/15 Gal Steven MD [address] [place] [address] Primary Staff Physician Cardiology 08/09/18 Rich Dejesus MD [address] [place] [address] Home Care Provider Orthopedics 01/10/21 Randall Funes MD [address] [place], [place] [id number] Referring Orthopedics 01/10/21 Anais Mast, PT [address] [place] [address] Floor Covering Installer Post Acute Care 01/13/21 Team Status: Active Member Role Status Dates CINDY Sierra Family Provider Active CINDY Sierra Primary Care Provider Active Team Status: Inactive Member Role Status Dates CINDY Sierra Primary Care Provider Active Dr. Anish Villeda , Emergency Provider Active Hand Former Helper Relationship Specialty Start Date End Date Marcela Jacob PA-C [address] [place], [place] [address] PCP - General Family Medicine 07/01/17 Paulie Lyons [address] [phone] Consulting Pain Management 03/13/15 Gal Steven MD [address] [place] [address] Primary Staff Physician Cardiology 08/09/18 Rich Dejesus MD [address] [place] [address] Home Care Provider Orthopedics 01/10/21 Randall Funes MD [address] [place] [address] Referring Orthopedics 01/10/21 Anais Mast, PT [address] [place] [address] Floor Covering Installer Post Acute Care 01/13/21 Hand Former Helper Relationship Specialty Start Date End Date Marcela Jacob PA-C [address] [place] [address] PCP - General Family Medicine 07/01/17 Paulie Lyons [address] [address] Consulting Pain Management 03/13/15 Gal Steven MD [address] [place] [address] Primary Staff Physician Cardiology 08/09/18 Rich Dejesus MD [address] [place] [address] Home Care Provider Orthopedics 01/10/21 Randall Funes MD [address] [place] [address] Referring Orthopedics 01/10/21 Anais Mast, PT [address] [place] [address] Floor Covering Installer Post Acute Care 01/13/21 Hand Former Helper Relationship Specialty Start Date End Date Marcela Jacob PA-C [address] [place] [address] PCP - General Family Medicine 07/01/17 Eloy, Paulie Waldrop [address] [phone] Consulting Pain Management 03/13/15 Gal Steven MD [address] [place] [address] Primary Staff Physician Cardiology 08/09/18 Rich Dejesus MD [address] [place] [address] Home Care Provider Orthopedics 01/10/21 Randall Funes MD [address] [place] [address] Referring Orthopedics 01/10/21 Anais Mast, PT [address] [place] [address] Floor Covering Installer Post Acute Care 01/13/21 Hand Former Helper Relationship Specialty Start Date End Date Marcela Jacob PA-C [address] [place] [address] PCP - General Family Medicine 07/01/17 Paulie Lyons Benjie [address] [phone] Consulting Pain Management 03/13/15 Gal Steven MD [address] [place] [address] Primary Staff Physician Cardiology 08/09/18 Rich Dejesus MD [address] [place] [address] Home Care Provider Orthopedics 01/10/21 Randall Funes MD [address] [place] [address] Referring Orthopedics 01/10/21 Anais Mast, PT [address] [place] [address] Floor Covering Installer Post Acute Care 01/13/21 Hand Former Helper Relationship Specialty Start Date End Date Marcela Jacob PA-C [address] [place] [address] PCP - General Family Medicine 07/01/17 Paulie Lyons [address] [phone] Consulting Pain Management 03/13/15 Gal Steven MD [address] [place] [address] Primary Staff Physician Cardiology 08/09/18 Rich Dejesus MD [address] [place] [address] Home Care Provider Orthopedics 01/10/21 Randall Funes MD [address] [place] [address] Referring Orthopedics 01/10/21 Anais Mast, PT [address] [place] [address] Floor Covering Installer Post Acute Care 01/13/21 Hand Former Helper Relationship Specialty Start Date End Date Marcela Jacob PA-C [address] [place] [address] PCP - General Family Medicine 07[facility]01[facility]17 [facility] [address] [address] Consulting Pain Management 03/13/15 Gal Steven MD [address] [place] [address] Primary Staff Physician Cardiology 08/09/18 Rich Dejesus MD [address] [place] [address] Home Care Provider Orthopedics 01/10/21 Randall Funes MD [address] [place] [address] Referring Orthopedics 01/10/21 Anais Mast, PT [address] [place] [address] Floor Covering Installer Post Acute Care 01/13/21 Hand Former Helper Relationship Specialty Start Date End Date Marcela Jacob PA-C [address] [place] [address] PCP - General Family Medicine 07/01/17 [facility] [address] [address] Consulting Pain Management 03/13/15 Gal Steven MD [address] [place] [address] Primary Staff Physician Cardiology 08/09/18 Rich Dejesus MD [address] [place] [address] Home Care Provider Orthopedics 01/10/21 Randall Funes MD [address] [place] [address] Referring Orthopedics 01/10/21 Hand Former Helper Relationship Specialty Start Date End Date Marcela Jacob PA-C [address] [place] [address] PCP - General Family Medicine 07/01/17 EloyPaulie griffith [address] [place] [phone] Consulting Pain Management 03/13/15 [place] [address] [place], [place] [id number] Primary Staff Physician Cardiology 08/09/18 Rich Dejesus MD [address] [place] [address] Home Care Provider Orthopedics 01/10/21 Randall Funes MD [address] [place] [address] Referring Orthopedics 01/10/21 Hand Former Helper Relationship Specialty Start Date End Date Marcela Jacob PA-C [address] [place] [address] PCP - General Family Medicine 07/01/17 Paulie Lyons [address] [place] [phone] Consulting Pain Management 03/13/15 Gal Steven MD [address] [place] [address] Primary Staff Physician Cardiology 08/09/18 Rich Dejesus MD [address] [place] [address] Home Care Provider Orthopedics 01/10/21 Randall Funes MD [address] [place] [address] Referring Orthopedics 01/10/21 Hand Former Helper Relationship Specialty Start Date End Date Marcela Jaocb PA-C [address] [place], [place] [address] PCP - General Family Medicine 07/01/17 Paulie Lyons [address] [address] Consulting Pain Management 03/13/15 Gal Steven MD [address] [place] [address] Primary Staff Physician Cardiology 08/09/18 Rich Dejesus MD [address] [place] [address] Home Care Provider Orthopedics 01/10/21 Randall Funes MD [address] [place] [address] Referring Orthopedics 01/10/21 Hand Former Helper Relationship Specialty Start Date End Date Marcela Jacob PA-C [address] [place] [address] PCP - General Family Medicine 07/01/17 Paulie Lyons [address] [place] [address] Consulting Pain Management 03/13/15 Gal Steven MD [address] [place] [address] Primary Staff Physician Cardiology 08/09/18 Rich Dejesus MD [address] [place] [address] Home Care Provider Orthopedics 01/10/21 Randall Funes MD [address] [place] [address] Referring Orthopedics 01/10/21 Hand Former Helper Relationship Specialty Start Date End Date Marcela Jacob PA-C [address] [place] [address] PCP - General Family Medicine 07/01/17 Paulie Lyons [address] [address] Consulting Pain Management 03/13/15 Gal Steven MD [address] [place] [address] Primary Staff Physician Cardiology 08/09/18 Rich Dejesus MD [address] [place] [address] Home Care Provider Orthopedics 01/10/21 Randall Funes MD [address] [place] [address] Referring Orthopedics 01/10/21 Hand Former Helper Relationship Specialty Start Date End Date Aris Jacob PA-C [address] [place] [address] PCP - General Family Medicine 07/01/17 Paulie Lyons [address] [place] [phone] Consulting Pain Management 03/13/15 Gal Steven MD [address] [place] [address] Primary Staff Physician Cardiology 08/09/18 Rich Dejesus MD [address] [place] [address] Home Care Provider Orthopedics 01/10/21 Randall Funes MD [address] [place] [address] Referring Orthopedics 01/10/21 Hand Former Helper Relationship Specialty Start Date End Date Vonnie Man APRN.CANCER CENTER DIRECTOR [address] [place] [address] PCP - General Family Medicine 05/01/24 Paulie Lyons [address] [place] [address] Consulting Pain Management 03/13/15 Gal Steven MD [address] [place], [place] [id number] Primary Staff Physician Cardiology 08/09/18 Rich Dejesus MD [address] [place], [place] [address] Home Care Provider Orthopedics 01/10/21 Randall Funes MD [address] [place], [place] [id number] Referring Orthopedics 01/10/21 Vonnie Man, TURF KEEPER.CANCER CENTER DIRECTOR [address] [place] [address] Life Insurance Agent Family Medicine 04/28/24 Jaelyn Walden TURF KEEPER.CANCER CENTER DIRECTOR [address] [place] [address] Life Insurance Agent Family Medicine 04/28/24 Hand Former Helper Relationship Specialty Start Date End Date Vonnie Man, SHIRA.CANCER CENTER DIRECTOR [address] [place] [address] PCP - General Family Medicine 05/01/24 Paulie Lyons [address] [address] Consulting Pain Management 03/13/15 Gal Steven MD [address] [place] [address] Primary Staff Physician Cardiology 08/09/18 Rich Dejesus MD [address] [place], [place] [id number] Home Care Provider Orthopedics 01/10/21 Randall Funes MD [address] [place] [address] Referring Orthopedics 01/10/21 Vonnie Man APRN.CANCER CENTER DIRECTOR [address] [place] [address] Life Insurance Agent Family Medicine 04/28/24 Jaelyn Walden APRN.CANCER CENTER DIRECTOR [address] [place], [place] [address]171 Life Insurance Agent [facility] 04/28/24 Hand Former Helper Relationship Specialty Start Date End Date Vonnie Man APRN.CANCER CENTER DIRECTOR [address] [place], [place] [address] PCP - General Family Medicine 05/01/24 Paulie Lyons [address] [address] Consulting Pain Management 03/13/15 Gal Steven MD [address] [place] [address] Primary Staff Physician Cardiology 08/09/18 Rich Dejesus MD [address] [place] [address] Home Care Provider Orthopedics 01/10/21 Randall Funes MD [address] [place] [address] Referring Orthopedics 01/10/21 Vonnie Man APRN.CANCER CENTER DIRECTOR [address] [place] [address] Life Insurance Agent Family [facility] 04/28/24 Jaelyn Walden APRN.CANCER CENTER DIRECTOR [address] [place] [address] Life Insurance Agent Family Medicine 04/28/24 Hand Former Helper Relationship Specialty Start Date End Date Vonnie Man, TURF KEEPER.CANCER CENTER DIRECTOR [address] [place] [address] PCP - General Family Medicine 05/01/24 Paulie Lyons [address] [address] Consulting Pain Management 03/13/15 Gal Steven MD [address] [place], [place] [address] Primary Staff Physician Cardiology 08/09/18 Rich Dejesus MD [address] [place] [address] Home Care Provider Orthopedics 01/10/21 Randall Funes MD [address] [place], [place] [id number] Referring Orthopedics 01/10/21 Vonnie Man, TURF KEEPER.CANCER CENTER DIRECTOR [address] [place] [address] Life Insurance Agent Family Medicine 04/28/24 Jaelyn Walden, TURF KEEPER.CANCER CENTER DIRECTOR [address] [place] [address] Life Insurance Agent Family Medicine 04/28/24 Hand Former Helper Relationship Specialty Start Date End Date Vonnie Man, TURF KEEPER.CANCER CENTER DIRECTOR [address] [place] [address] PCP - General Family Medicine 05/01/24 Paulie Lyons [address] [place] [address] Consulting Pain Management 03/13/15 Gal Steven MD [address] [place], [place] [address]60[address] Primary Staff Physician Cardiology 08/09/18 Rich Dejesus MD [address] [place], [place] [address] Home Care Provider Orthopedics 01/10/21 Randall Funes MD [address] [place] [address] Referring Orthopedics 01/10/21 Vonnie Man, SHIRA.CANCER CENTER DIRECTOR [address] [place] [address] Life Insurance Agent Family Medicine 04/28/24 Jaelyn Walden, TURF KEEPER.CANCER CENTER DIRECTOR [address] [place] [address] Life Insurance Agent Family Medicine 04/28/24 Hand Former Helper Relationship Specialty Start Date End Date Vonnie Man, TURF KEEPER.CANCER CENTER DIRECTOR [address] [place] [address] PCP - General Family Medicine 05/01/24 Paulie Lyons [address] [place] [address] Consulting Pain Management 03/13/15 Gal Steven MD [address] [place] [address] Primary Staff Physician Cardiology 08/09/18 Rich Dejesus MD [address] [place] [id number] Home Care Provider Orthopedics 01/10/21 Randall Funes MD [address] [place], [place] 1675[address] Referring Orthopedics 01/10/21 Vonnie Man APRN.CANCER CENTER DIRECTOR [address] [place] [address] Life Insurance Agent Family Medicine 04/28/24 Jaelyn Walden APRN.CANCER CENTER DIRECTOR [address] [place] [address] Life Insurance Agent Family Medicine 04/28/24 Hand Former Helper Relationship Specialty Start Date End Date Vonnie Man APRN.CANCER CENTER DIRECTOR [address] [place] [address] PCP - General Family Medicine 05/01/24 Paulie Lyons [address] [address] Consulting Pain Management 03/13/15 Gal Steven MD [address] [place] [address] Primary Staff Physician Cardiology 08/09/18 Rich Dejesus MD [address] [place] [address] Home Care Provider Orthopedics 01/10/21 Randall Funes MD [address] [place] [address] Referring Orthopedics 01/10/21 Vonnie Man APRN.CANCER CENTER DIRECTOR [address] [place], [place] [address] Life Insurance Agent [facility] 04/28/24 Jaelyn Walden APRN.CANCER CENTER DIRECTOR [address] [place], [place] [address] [facility] 04/28/24 Hand Former Helper Relationship Specialty Start Date End Date Vonnie Man APRN.CANCER CENTER DIRECTOR [address] [place], [place] [address] PCP - General Family Medicine 05/01/24 Paulie Lyons [address] [address] Consulting Pain Management 03/13/15 Gal Steven MD [address] [place] [address] Primary Staff Physician Cardiology 08/09/18 Rich Dejesus MD [address] [place] [address] Home Care Provider Orthopedics 01/10/21 Randall Funes MD [address] [place] [address] Referring Orthopedics 01/10/21 Vonnie Man APRN.CANCER CENTER DIRECTOR [address] [place] [address] Life Insurance Agent [facility] 04/28/24 Jaelyn Walden TURF KEEPER.CANCER CENTER DIRECTOR [address] [place] [address] Life Insurance Agent [facility] 04/28/24 Team Status: Active Member Role Status Dates CINDY Sierra Primary Care Provider Active Team Status: Inactive Member Role Status Dates CINDY Sierra Primary Care Provider Active Start: August 22, 2024 End: August 22, 2024 Dr. Toni Aquino MD Emergency Provider Active Start: August 22, 2024 End: August 22, 2024 Hand Former Helper Relationship Specialty Start Date End Date Vonnie Man, TURF KEEPER.CANCER CENTER DIRECTOR [address] [place], [place] [address] PCP - General Family Medicine 05/01/24 Paulie Lyons MD [address] [address] Consulting Pain Management 03/13/15 Gal Steven MD [address] [place] [address] Primary Staff Physician Cardiology 08/09/18 Rich Dejesus MD [address] [place] [address] Home Care Provider Orthopedics 01/10/21 Randall Funes MD [address] [place] [address] Referring Orthopedics 01/10/21 Hand Former Helper Relationship Specialty Start Date End Date Vonnie Man TURF KEEPER.CANCER CENTER DIRECTOR [address] [place] [address] PCP - General Family Medicine 05/01/24 Paulie Lyons MD [address] [place] [address] Consulting Pain Management 03/13/15 Gal Steven MD [address] [place] [address] Primary Staff Physician Cardiology 08/09/18 Rich Dejesus MD [address] [place] [address] Home Care Provider Orthopedics 01/10/21 Randall Funes MD [address] [place] [address] Referring Orthopedics 01/10/21 Hand Former Helper Relationship Specialty Start Date End Date Vonnie Man, SHIRA.CANCER CENTER DIRECTOR [address] [place] [address] PCP - General Family Medicine 05/01/24 Paulie Lyons MD [address] [facility] [address] [place] [address] Consulting Pain Management 03/13/15 Gal Steven MD [address] [place] [address] Primary Staff Physician Cardiology 08/09/18 Rich Dejesus MD [address] [place] [address] Home Care Provider Orthopedics 01/10/21 Randall Funes MD [address] [place] [address] Referring Orthopedics 01/10/21 Hand Former Helper Relationship Specialty Start Date End Date Vonnie Man, TURF KEEPER.CANCER CENTER DIRECTOR [address] [place] [address] PCP - General Family Medicine 05/01/24 Paulie Lyons MD [address] [place] [address] Consulting Pain Management 03/13/15 Gal Steven MD [address] [facility] [place] [place] [address] Primary Staff Physician Cardiology 08/09/18 Rich Dejesus MD [address] [place] [address] Home Care Provider Orthopedics 01/10/21 Hand Former Helper Relationship Specialty Start Date End Date Vonnie Man, TURF KEEPER.CANCER CENTER DIRECTOR [address] [place] [address] PCP - General Family Medicine 05/01/24 Paulie Lyons MD [address] [address] Consulting Pain Management 03/13/15 Gal Steven MD [address] [place], [place] [address] Primary Staff Physician Cardiology 08/09/18 Rich Dejesus MD [address] [place] [address] Home Care Provider Orthopedics 01/10/21 Hand Former Helper Relationship Specialty Start Date End Date Vonnie ManSHIRA.CANCER CENTER DIRECTOR [address] [place] [address] PCP - General Family Medicine 05/01/24 Paulie Lyons MD [address] [place] [address] Consulting Pain Management 03/13/15 Gal Steven MD [address] [place] [address] Primary Staff Physician Cardiology 08/09/18 Rich Dejesus MD [address] [place] [address] Home Care Provider Orthopedics 01/10/21 Goals (unrecognized section and content) Goals may be documented in a n alternate sectionGoals may be documented in an alternate section FOR RECORDS PERTAINING TO PATIENTS WHO ARE OR HAVE BEEN ENROLLED IN A CHEMICAL DEPENDENCY/SUBSTANCEABUSE PROGRAM, SOME INFORMATION MAY BE OMITTED. This clinical summary was aggregated from multiple sources. Caution should be exercised in using it in the provision of clinical care. This summary normalizes information from multiple sources, and as a consequence, information in this document may materially change the coding, format and clinical context of patient data. In addition, data may be omitted in some cases. CLINICAL DECISIONS SHOULD BE BASED ON THE PRIMARY CLINICAL RECORDS. [employer] provides no warranty or guarantee of the accuracy or completeness of information in this document.
[2025-03-20 00:42] LABS: Hematocrit 50.5 % (40-54); Hemoglobin 17.5 g/dL (13.0-16.5); Immature Granulocytes Count 0.040 X10^3/uL (0.0-0.0); Mean Corp Hgb Conc 34.7 g/dL (32-36); Mean Corpuscular Volume 85.4 fL (80-94); Mean Platelet Vol. 10.1 fl (6.2-12.0); NRBC Flagged by Analyzer 0 % (0-5); Platelet Count 210 K/mm3 (150-450); RBC Distribution Width CV 13.2 % (11.6-14.6); RBC Distribution Width SD 40.8 fl (35.1-43.9); Red Blood Count 5.91 M/mm3 (4.6-6.2); White Blood Count 8.7 K/mm3 (4.4-11.0)
--- NOTE | 2025-03-20 00:45 | CT_ITS ---
PROCEDURE: BRAIN/HEAD WITHOUT CONTRAST 03/20/2025 REASON FOR EXAM: SEIZURE TECHNIQUE: Procedure Code: CTBR Modality: CT Procedure: BRAIN/HEAD WITHOUT CONTRAST Coronal and Sagittal reconstruction series were provided. One or more dose reduction techniques were used (e.g., Automated exposure control, adjustment of the mA and/or kV according to patient size, use of iterative reconstruction technique. RADIATION DOSE SUMMARY: CTDlvol: 44.99 mGy DLP: 829.85 mGycm COMPARISON: 22-Aug-2024 FINDINGS: Right frontal and parieto-occipital cortical and subcortical hypodense area of CSF like density with exvacudilatation of the overlying cortical sulci as well as the related aspect of the lateral ventricle. Left wgtowy-wcyupsj-hyczxfsn cortical and subcortical hypodense area. Calcific densities seen along the course of the left middle cerebral artery. Normal parenchymal attenuation of the brain stem and cerebellum. No intracerebral or extra axial hemorrhage No definite calvarial fractures. Evidence of intervention along the right calvarium. Unremarkable rest of the ventricular system. No midline shifts or deformity. The osseous structures in the skull base are unremarkable. Paranasal sinuses are unremarkable. CT/Brain/Head without Contrast IMPRESSION: No acute cerebrovascular insult. If clinical symptoms persist, further evaluati on with MRI may be considered as clinically warranted. No intracerebral or extra axial hemorrhage Stable study findings as detailed. Reading Location[facility]
[2025-03-20 01:02] VITALS: BP 148/86; PULSE 86; RESP 16; TEMP 36.4; O2SAT 97
--- NOTE | 2025-03-20 01:05 | RAD_ITS ---
PROCEDURE: CHEST 1 VIEW (PORTABLE) 03/20/2025 REASON FOR EXAM: SEIZURE TECHNIQUE: Frontal view of the chest. COMPARISON: None. FINDINGS: Median sternotomy wires are noted. The lungs are expanded. There is no demonstrated parenchymal abnormality. There is no demonstrated pleural abnormality. Normal heart and pericardium. Normal mediastinum and rommel. Normal visualized pulmonary arteries. Normal visualized aortic arch and descending thoracic aorta. Normal visualized thoracic spine. Normal visualized ribs, clavicles, and shoulders. There is no demonstrated abnormality of the visualized soft tissue structures of the upper abdomen. RAD/Chest 1 View (Portable) IMPRESSION: No evidence for acute abnormality. Reading Location: [facility]
[2025-03-20 01:14] LABS: Anion Gap 21 (5-15); BUN 26 mg/dL (4-19); BUN/Creat Ratio 20.8 RATIO (10-20); Calcium,Total 9.9 mg/dL (7.6-11.0); Carbon Dioxide 16.1 mmol/L (21.0-32.0); Chloride 101 mmol/L (98-108); Estimated Creatinine Clearance 107.92 ml/min (50-250); Glucose 153 mg/dL (70-99); Magnesium 2.4 mg/dL (1.5-2.2); Potassium 3.8 mmol/L (3.3-5.1)
[2025-03-20 01:59] LABS: Color, Urine Yellow (Yellow); Glucose, Dipstick 1000 mg/dl (Normal); Ketone-Dipstick 15 mg/dl (Negative); Leukocyte Esterase-Dipstick 25 /ul (Negative); Nitrite-Dipstick Negative (Negative); Occult Blood-Urine 25 /ul (Negative); Protein-Dipstick 30 mg/dl (Negative); Specific Gravity, Urine 1.025 (1.002-1.030); Urine Bilirubin Dipstick Negative (Negative)
[2025-03-20 02:18] LABS: Mucous, Urine RARE /hpf (<or=2+); Red Blood Cells-Urine 0-5 SEEN /hpf (0-5); Squamous Epithelial Cells - UA 0-5 SEEN /hpf (0-5)
--- NOTE | 2025-03-20 02:27 | EX.ED.DYSGE1 ---
HPI History of Present Illness Chief Complaint: Seizure Informant: patient and family Narrative Narrative: Patient is a 40-year-old male with past medical history of seizure disorder on Keppra as well as hemophilia. Patient states that today he just felt off and felt like he was going to have a seizure. Family states that he was upstairs and they were downstairs and they heard a thud. They went upstairs to check on the abnormal noise and found the patient with and a tonic-clonic seizure. Second to this they called EMS. EMS reports when they arrived the patient was no longer seizing but appeared postictal. Upon arrival to the ER the patient states that he has been taking his medication as directed and he denies any recent sick symptoms however with a breakthrough seizure he was brought in for further evaluation [facility] Medical History Seizure Hemophilia hx of stroke Home Medications ?Medication ?Instructions ?Recorded ?Last Taken ?Type antihemophil FVIII,full length 12,000 unit IV QODAY 07/07/16 Unknown History 1,000 (+/-) unit IV solution citalopram 20 mg tablet PO #30 tabs 02/28/19 Unknown History levetiracetam 750 mg tablet 1,500 mg PO BID 03/20/25 Unknown History metoprolol succinate 25 mg 25 mg PO DAILY 03/20/25 Unknown History tablet,extended release 24 hr Allergy/AdvReac Type Severity Reaction Status Date / Time aspirin Allergy Other Verified 03/19/25 23:59 Iodinated Contrast Media Allergy Other Verified 03/19/25 23:59 (DYEE) NSAIDS (Non-Steroidal Allergy Other Verified 03/19/25 23:59 Anti-Inflamma Family History no significant family his Surgical History Hx of brain surgery History of ankle surgery History of arthroscopy of left knee Hx of heart surgery Social History Smoking Status: Never smoker alcohol intake: never ROS ROS ED Constitutional Constitutional ED: Denies chills or fever(s) Eyes Eyes: Denies blurry vision or change in vision ENT ENT ED: Denies rhinorrhea or sore throat Cardiovascular Cardiovascular: Denies chest pain Respiratory/Chest Respiratory/Chest: Denies cough or dyspnea Gastrointestinal Gastrointestinal: Denies abdominal pain, diarrhea, nausea or vomiting Genitourinary Genitourinary ED: Denies dysuria Musculoskeletal Musculoskeletal: Denies myalgias Integumentary Denies rash Neurologic Neurologic: Reports other Details: Positive seizure ; Denies headache(s) Hematologic/Lymphatic Hematologic/Lymphatic: Reports easy bleeding and easy bruising EXAM Physical Exam Const Vital Signs: 03/20/25 00:00 03/20/25 00:03 03/20/25 01:02 Temperature 97.6 F L 97.6 F L 97.6 F L Temperature Source Oral Oral Oral Pulse Rate 97 97 86 Respiratory Rate 16 16 16 Blood Pressure 133/87 H 133/87 H 148/86 H Blood Pressure Mean 102 102 106 Pulse Ox 93 94 97 Oxygen Delivery Method Room Air Room Air Room Air 03/20/25 02:43 Temperature 97.7 F L Temperature Source Pulse Rate 78 Respiratory Rate 16 Blood Pressure 134/96 H Blood Pressure Mean 108 Pulse Ox 97 Oxygen Delivery Method Positive well nourished and well developed General Appearance ED: well developed; Negative for pallor HEENT Reports moist mucous membranes HEENT Narrative: Normocephalic atraumatic Positive cheek biting consistent with seizure activity noted and in the oropharynx No airway edema or compromise or secondary findings to suggest infection Eyes PERRL and EOMs intact bilaterally General Eye ED: Negative for scleral icterus Neck supple Resp normal respiratory effort and clear to auscultation bilaterally Cardio regular rate and regular rhythm Rate: other Other Details: Radial and carotid pulses are equal and symmetric GI normal to inspection, nondistended, normoactive bowel sounds, non-tender, non-distended and no masses GI Narrative: No voluntary guarding or rigidity or pulsatile mass Auscultation: normoactive bowel sounds Palpation: soft Extremity normal to inspection Extremity Narrative: No signs of long bone injury such as bony deformity or joint effusion Neuro oriented x3, CN's II-XII intact bilaterally and no sensory deficits noted Neuro Narrative: GCS of 15 Cranial nerves II through XII are grossly intact without focal neurologic deficit No pronator drift no dysmetria no truncal ataxia NIH stroke scale score of 0 Sensorium / Orientation: alert Motor Exam: strength 5/5 throughout Psych mental status grossly normal Skin no rashes or lesions noted and no wounds General Skin Exam: Negative for jaundice or pallor MDM MDM MDM Narrative Medical decision making narrative: Patient arrived to the ER with stable vitals and upon arrival he is awake and alert with normal neurologic exam. History and physical exam is consistent with breakthrough seizure. As he has history of hemophilia in order to ensure he did not have a spontaneous subarachnoid or subdural hemorrhage a CT of the head was obtained. In order to rule out a cause for the breakthrough seizure such as hyponatremia acute kidney injury UTI viral infection or pneumonia basic workup was obtained. Labs revealed no clinically significant finding. Urine sample showed no overt signs of infection. Viral swab was negative and chest x-ray revealed no acute lung pathology such as pneumonia. The patient had no further seizure activity while in the ER. His mental status remained normal and vital stable. Therefore at this time with a overall negative workup and no recurrent seizure activity I do not feel the need for further intervention and he is otherwise safe for discharge. Please note that as his Keppra level is a send out and I do not know what his value is and he has had no further seizure activity I do not feel the need to provide a loading dose especially as he states he has been taking it as directed History & Record Review Discussion w/independent historian: Patient and Family Lab Data Attestation: I reviewed the patient's lab results. Labs: Laboratory Results - last 24 hr 03/20/25 03/20/25 00:05 01:53 WBC 8.7 RBC 5.91 Hgb 17.5 H Hct 50.5 MCV 85.4 MCH 29.6 MCHC 34.7 RDW Std Deviation 40.8 RDW Coeff of Abraham 13.2 Plt Count 210 MPV 10.1 Immature Gran % (Auto) 0.500 Neut % (Auto) 74.8 H Lymph % (Auto) 17.7 L [place] % (Auto) 6.4 Eos % (Auto) 0.3 Baso % (Auto) 0.3 Absolute Neuts (auto) 6.5 Absolute Lymphs (auto) 1.54 Nucleated RBC % 0 Sodium 139 Potassium 3.8 Chloride 101 Carbon Dioxide 16.1 L Anion Gap 21 H BUN 26 H Creatinine 1.23 H Estim Creat Clear Calc 107.92 Est GFR (MDRD) Non-Af 77 BUN/Creatinine Ratio 20.8 H Glucose 153 H Calcium 9.9 Magnesium 2.4 H Urine Color Yellow Urine Clarity Clear Urine pH 5.0 Ur Specific [place] 1.025 Urine Protein 30 H Urine Glucose (UA) 1000 H Urine Ketones 15 H Urine Occult Blood 25 H Urine Nitrite Negative Urine Bilirubin Negative Urine Urobilinogen Normal Ur Leukocyte Esterase 25 H Urine RBC 0-5 SEEN Urine WBC 5-10 SEEN Ur Squamous Epith Cells 0-5 SEEN Urine Bacteria RARE Urine Mucus RARE Radiography Diagnostic Testing: Clinical Impression(s) from Imaging Studies Brain CT 03/20/25 00:45 IMPRESSION: No acute cerebrovascular insult. If clinical symptoms persist, further evaluation with MRI may be considered as clinically warranted. No intracerebral or extra axial hemorrhage Stable study findings as detailed. Reading Location: [place] [address] Chest X-Ray 03/20/25 01:05 IMPRESSION: No evidence for acute abnormality. Reading Location: [place] [address] Chest x-ray as interpreted by the emergency medicine physician reveals no acute infiltrate pneumothorax or pleural effusion Discharge Plan Triage Chief Complaint: Seizure ED Provider: Anish Villeda Dx/Rx/DC Orders Clinical Impression: Breakthrough seizure, Hemophilia Instructions: ED Seizure, Recurrent (Adult) Prescriptions: No Action citalopram 20 mg tablet PO Qty: 30 antihemophil FVIII,full length 1,000 UNIT recon soln 12,000 unit IV QODAY Rx Instructions: 2x/week levetiracetam 750 mg tablet 1,500 mg PO BID metoprolol succinate 25 mg tablet extended release 24 hr 25 mg PO DAILY Primary Care Provider: Vonnie Man NP Referrals: Vonnie Man NP, DIRECTOR OF SERVICES-C [Primary Care Provider, Medical] Activity Restrictions/Additional Instructions: There is no obvious cause for a breakthrough seizure this evening. Therefore please continue all of your home medications as directed by your doctor and return to the ER should you have any further concerns or worsening of symptoms Print Language: Kyr[place]z Disposition Disposition: Home, Self Care Discharge Date/Time: 03/20/25 02:44
[2025-03-20 02:43] VITALS: BP 134/96; PULSE 78; RESP 16; TEMP 36.5; O2SAT 97
[2025-03-23 14:08] LABS: KEPPRA (LEVETIRACETAM) 14.0 ug/mL (10.0-40.0)
== END 2025-03-20 02:44 | disposition home or self-care (01) ==
PROVIDERS: Emergency Provider Emergency Medicine; PCP Registered Nurse; Visit Provider Emergency Medicine
DX: G40.909 Epilepsy, unspecified, not intractable, without status epilepticus (principal); D66 Hereditary factor VIII deficiency; Z79.899 Other long term (current) drug therapy
CPT/HCPCS: 70450; 71045; 80048; 80177; 81001; 83735; 85025; 87631; 93005; 99284; A4216